=== PATIENT | male | born 1960 | race African-American/Black ===

== ENCOUNTER 2018-03-10 08:35 | Inpatient (IN) | payer OTHER, MEDICARE ==
[2018-03-10] MEDS ORDERED: NITROGLYCERIN 2% OINTMENT 1 GM PACKET TP ONE (08:43)
[2018-03-10] MEDS ORDERED: FUROSEMIDE INJ/PF 40 MG/4 ML SDV IV ONE (08:43)
[2018-03-10] MEDS ORDERED: AMLODIPINE BESYLATE 10 MG TABLET PO ONE (08:44)
[2018-03-10 09:05] LABS: ABSOLUTE BASOPHILS # (AUTO) 0.1 10^3/uL (0.0-0.2); ABSOLUTE EOSINOPHILS # (AUTO) 0.1 10^3/uL (0.0-0.6); ABSOLUTE LYMPHOCYTES (AUTO) 0.7 10^3/uL (0.5-4.7); ABSOLUTE MONOCYTES (AUTO) 0.5 10^3/uL (0.1-1.4); BASOPHILS % (AUTO) 0.8 % (0-2); EOSINOPHILS % (AUTO) 1.6 % (0-6); HEMATOCRIT 37.2 % (37.9-51.0); HEMOGLOBIN 12.6 g/dL (13.5-17.0); MEAN CORPUSCULAR HEMOGLOBIN 30.8 pg (27.0-33.4); MEAN CORPUSCULAR HGB CONC 33.8 g/dL (32.0-36.0); MEAN CORPUSCULAR VOLUME 91 fl (80-97); MONOCYTES % (AUTO) 6.2 % (3-13); PLATELET COUNT 378 10^3/uL (150-450); RED BLOOD COUNT 4.08 10^6/uL (4.35-5.55); RED CELL DISTRIBUTION WIDTH 16.6 % (11.5-14.0); SEGMENTED NEUTROPHILS % (AUTO) 81.4 % (42-78); TOTAL CELLS COUNTED % (AUTO) 100 %; WHITE BLOOD COUNT 7.4 10^3/uL (4.0-10.5)
[2018-03-10 09:10] LABS: INTERNATIONAL RATION (INR) 0.92; PROTHROMBIN TIME 12.8 SEC (11.4-15.4)
--- NOTE | 2018-03-10 09:11 | ER Document Report ---
ED General - General Chief Complaint: Breathing Difficulty Stated Complaint: SHORTNESS OF BREATH Time Seen by Provider: 03/10/18 08:39 - HPI Patient complains to provider of: Difficulty breathing Notes: Patient coming in for evaluation of difficulty in breathing. Patient states ongoing for approximately 1 week went to [facility] today was found to have an SPO2 of 89% EMS states that patient had diffuse rales was given BREANNA treatment along with 2 sublingual nitro is due to elevated blood pressure. Patient transported to the ER for further evaluation. Patient states a history of CHF patient also states a history of multiple abdominal surgeries states recently moved from [facility] has been in her chronic for approximately 1 year. Patient states approximately 50 pound weight gain in over the last few weeks. Patient has been wearing compression stockings to his legs but no improvement of his swellings. Patient upon my evaluation states feeling better after receiving his old cannula oxygen. Patient states he has not taken any of his blood pressure medications including Lasix today. - Related Data Allergies/Adverse Reactions: No Known Allergies Allergy (Unverified 03/10/18 12:35) Past Medical History - Social History Smoking Status: Unknown if Ever Smoked Family History: Reviewed & Not Pertinent Review of Systems - Review of Systems Constitutional: No symptoms reported EENT: No symptoms reported Cardiovascular: No symptoms reported Respiratory: Short of breath Gastrointestinal: No symptoms reported Genitourinary: No symptoms reported Male Genitourinary: No symptoms reported Musculoskeletal: No symptoms reported Skin: No symptoms reported Hematologic/Lymphatic: No symptoms reported Neurological/Psychological: No symptoms reported -: Yes All other systems reviewed and negative Physical Exam - Vital signs Vitals: Pulse Ox 98 03/10/18 08:43 Interpretation: Normal - General General appearance: Appears well, Alert - HEENT Head: Normocephalic, Atraumatic Eyes: Normal Pupils: PERRL - Respiratory Respiratory status: No respiratory distress Chest status: Nontender Breath sounds: Rales Chest palpation: Normal - Cardiovascular Rhythm: Regular Heart sounds: Normal auscultation Murmur: No - Abdominal Inspection: Normal Distension: No distension Bowel sounds: Normal Tenderness: Nontender Organomegaly: No organomegaly - Back Back: Normal, Nontender - Extremities General upper extremity: Normal inspection, Nontender, Normal color, Normal ROM, Normal temperature General lower extremity: Normal inspection, Nontender, Normal color, Normal ROM, Normal temperature, Normal weight bearing. No: Sarah's sign - Neurological Neuro grossly intact: Yes Cognition: Normal Orientation: AAOx4 [place] Coma Scale Eye Opening: Spontaneous [place] Coma Scale Verbal: Oriented [place] Coma Scale Motor: Obeys Commands [place] Coma Scale Total: 15 Speech: Normal Motor strength normal: LUE, RUE, LLE, RLE Sensory: Normal - Psychological Associated symptoms: Normal affect, Normal mood - Skin Skin Temperature: Warm Skin Moisture: Dry Skin Color: Normal Course - Re-evaluation Re-evalutation: 03/10/18 09:10 We will start the patient with topical nitro IV Lasix and also give the patient a dose of his amlodipine. Chest x-ray EKG currently pending 03/10/18 14:51 Patient continued to require oxygen slightly hypoxic upon ambulation and tachypnea. Patient will be admitted to the hospitalist service for CHF exacerbation. - Vital Signs Vital signs: Temp Pulse Resp BP Pulse Ox 97.5 F 15 170/106 H 94 03/10/18 08:48 03/10/18 14:31 03/10/18 14:31 03/10/18 14:31 - Laboratory Result Diagrams: 03/10/18 08:55 03/10/18 08:55 Laboratory results interpreted by me: 03/10/18 03/10/18 03/10/18 08:55 08:55 08:55 RBC 4.08 L Hgb 12.6 L Hct 37.2 L RDW 16.6 H Seg Neutrophils % 81.4 H Lymphocytes % 10.0 L Anion Gap 2 L BUN 22 H Creatinine 1.64 H Est GFR ( Amer) 52 L Est GFR (Non-Af Amer) 43 L Glucose 165 H Creatine Kinase 656 H NT-Pro-B Natriuret Pep 6080 H Total Protein 5.1 L Albumin 2.5 L - EKG Interpretation by Me Additional EKG results interpreted by me: 03/10/18 09:10 Patient is EKG shows a rate of 91 with T wave inversions lead I, aVL, V4, V5 and V6. Patient has a [place] of 176 QRS duration of 102 QT QTc [address] segment elevations or depressions. No signs of STEMI Discharge - Discharge Clinical Impression: CHF exacerbation, Chronic kidney disease, stage III (moderate) Acute CHF (congestive heart failure) Qualifiers: Heart failure type: unspecified Qualified Code(s): I50.9 - Heart failure, unspecified Type 2 diabetes mellitus Qualifiers: Diabetes mellitus mcc insulin use: without terminal clerk use Diabetes mellitus complication status: with kidney complications Diabetes mellitus complication detail: with chronic kidney disease Chronic kidney disease stage: stage 3 (moderate) Qualified Code(s): E11.22 - Type 2 diabetes mellitus with diabetic chronic kidney disease Condition: Good Disposition: ADMITTED OBSERVATION [facility] Admitted: Telemetry
--- NOTE | 2018-03-10 09:23 | RADIOLOGY REPORT (SQ) ---
EXAM DESCRIPTION: CHEST SINGLE VIEW COMPLETED DATE/TIME: 03/10/2018 9:01 am REASON FOR STUDY: sob COMPARISON: None. EXAM PARAMETERS: NUMBER OF VIEWS: One view. TECHNIQUE: Single frontal radiographic view of the chest acquired. RADIATION DOSE: NA LIMITATIONS: None. FINDINGS: LUNGS AND PLEURA: Trace bilateral pleural effusions are present with minimal bibasilar air space disease likely atelectasis. Mild pulmonary vascular prominence without perihilar pulmonary edema. No pneumothorax. MEDIASTINUM AND HILAR STRUCTURES: No masses. Contour normal. HEART AND VASCULAR STRUCTURES: Cardiac silhouette size upper limits of normal BONES: No acute findings. HARDWARE: None in the chest. OTHER: No other significant finding. IMPRESSION: Borderline cardiomegaly with trace bilateral pleural effusions TECHNICAL DOCUMENTATION: JOB ID: [id number] [employer]- All Rights Reserved Reading location - IP/workstation name: [email or web address]
[2018-03-10 09:25] LABS: ALANINE AMINOTRANSFERASE 36 U/L (21-72); ALBUMIN 2.5 g/dL (3.5-5.0); ALKALINE PHOSPHATASE 112 U/L (38-126); ASPARTATE AMINO TRANSFERASE 28 U/L (17-59); BILIRUBIN,DIRECT 0.1 mg/dL (0.0-0.4); BILIRUBIN,TOTAL 0.7 mg/dL (0.2-1.3); BLOOD UREA NITROGEN 22 mg/dL (7-20); CALCIUM 8.4 mg/dL (8.4-10.2); CREATINE KINASE 656 U/L (55-170); GLUCOSE 165 mg/dL (75-110); POTASSIUM 3.6 mmol/L (3.6-5.0); TOTAL PROTEIN 5.1 g/dL (6.3-8.2)
[2018-03-10 09:31] LABS: CARBON DIOXIDE 28 mmol/L (22-30); CHLORIDE 107 mmol/L (98-107); SODIUM 137.4 mmol/L (137-145)
[2018-03-10 09:32] LABS: ANION GAP 2 (5-19)
[2018-03-10 09:38] LABS: CREATINE KINASE MB 4.28 ng/mL (<4.55)
[2018-03-10 09:39] LABS: TROPONIN I 0.044 ng/mL
[2018-03-10] MEDS ORDERED: GLUCAGON,HUMAN RECOMB 1 MG INJ IM PRN (11:48)
[2018-03-10] MEDS ORDERED: DEXTROSE 40% GEL 15 GM TUBE PO PRN ×2 (11:48)
[2018-03-10] MEDS ORDERED: DEXTROSE 50%-WATER 25 GM/50 ML DISP.SYRIN IV PRN ×2 (11:48)
--- NOTE | 2018-03-10 12:03 | PDOC H&P ---
History of Present Illness Admission Date/PCP: 03/10/18 11:18 History of Present Illness: JARED HORVATH is a 57 year old male with a past medical history of hypertension, diabetes, and hypercholesterolemia who presents with shortness of breath. He had been having worsening shortness of breath that have been developing over the past several days. He went to an urgent care today and they took a look at him and sent him to the ER. He tells me that he has been having worsening swelling in his legs over the past few weeks. He has not been able to lay down flat and has been sleeping pretty much propped up for several weeks as well. He does not wear oxygen at home. He has no prior diagnosis of heart failure. He lives between here with his daughter and in [place] where his primary care provider is. He says he has never had a heart attack, nor has he ever had to have a cardiac catheterization or stress test. He does not know if he is ever had an echocardiogram. He says he has been taking his medications as directed. He was diffusely edematous with an elevated BNP and pulmonary edema on examination. He says he has been wearing compression stockings once he noticed the swelling in his feet was getting bad, but he says that the swelling just got worse and came up his legs and to his abdomen and lower back. He said that he had one episode of chest pain yesterday when he got up to go to the bathroom and when he got back to the couch it had resolved so it only lasted for a few minutes. He said it was on the left side of his chest and did not radiate. He has a hard time describing exactly what it felt like, just that it was uncomfortable. He does not recall ever having experienced anything like that before. He does not smoke. 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 Past Medical History Cardiac Medical History: Reports: Hypertension Social History Smoking Status: Former Smoker Family History Family History: Reviewed & Not Pertinent Parental Family History Reviewed: Yes - Unknown Children Family History Reviewed: Yes - Noncontributory Sibling(s) Family History Reviewed.: Yes - Unknown Review of Systems All systems: reviewed and no additional remarkable complaints except as stated - A 10 point review of systems was conducted with the patient and was negative except as noted above Physical Exam Vital Signs: Temp Pulse Resp BP Pulse Ox 97.5 F 14 179/107 H 94 03/10/18 08:48 03/10/18 10:32 03/10/18 10:32 03/10/18 10:32 Intake & Output 03/09/18 03/10/18 03/11/18 06:59 06:59 06:59 Weight 130.2 kg General appearance: PRESENT: no acute distress, cooperative, disheveled, morbidly obese Head exam: PRESENT: atraumatic, normocephalic Eye exam: PRESENT: EOMI, PERRLA. ABSENT: conjunctival injection, nystagmus, scleral icterus Ear exam: PRESENT: normal external ear exam Mouth exam: PRESENT: moist, neck supple, tongue midline Throat exam: ABSENT: post pharyngeal erythema Neck exam: PRESENT: full ROM, JVD - He had some mild JVD, approximately 4 cm bilaterally. ABSENT: carotid bruit, lymphadenopathy, meningismus, tenderness, thyromegaly Respiratory exam: PRESENT: crackles - Bibasilar, decreased breath sounds, symmetrical, unlabored - He said he felt better after getting a dose of Lasix in the ER and his breathing had improved by the time I saw him. ABSENT: accessory muscle use, prolonged expiratory phas, rhonchi, tachypnea, wheezes Cardiovascular exam: PRESENT: RRR, +S1, +S2. ABSENT: diastolic murmur, systolic murmur Vascular exam: PRESENT: normal capillary refill GI/Abdominal exam: PRESENT: normal bowel sounds, soft. ABSENT: distended, guarding, rebound, tenderness Gentrourinary exam: PRESENT: scrotal swelling Extremities exam: PRESENT: pedal edema, +2 edema - 2+ pitting edema from his legs up to above his waist, other - His legs were wrapped up in compression stockings. ABSENT: clubbing Musculoskeletal exam: PRESENT: normal inspection. ABSENT: deformity Neurological exam: PRESENT: alert, awake, oriented to person, oriented to place, oriented to time, oriented to situation, CN II-XII grossly intact. ABSENT: motor sensory deficit Psychiatric exam: PRESENT: appropriate affect, normal mood Skin exam: PRESENT: dry, warm Results Laboratory Results: 03/10/18 08:55 03/10/18 08:55 03/10/18 03/10/18 08:55 08:55 WBC 7.4 RBC 4.08 L Hgb 12.6 L Hct 37.2 L MCV 91 MCH 30.8 MCHC 33.8 RDW 16.6 H Plt Count 378 Seg Neutrophils % 81.4 H Lymphocytes % 10.0 L Monocytes % 6.2 Eosinophils % 1.6 Basophils % 0.8 Absolute Neutrophils 6.0 Absolute Lymphocytes 0.7 Absolute Monocytes 0.5 Absolute Eosinophils 0.1 Absolute Basophils 0.1 Sodium 137.4 Potassium 3.6 Chloride 107 Carbon Dioxide 28 Anion Gap 2 L BUN 22 H Creatinine 1.64 H Est GFR ( Amer) 52 L Est GFR (Non-Af Amer) 43 L Glucose 165 H Calcium 8.4 Total Bilirubin 0.7 AST 28 ALT 36 Alkaline Phosphatase 112 Total Protein 5.1 L Albumin 2.5 L 03/10/18 03/10/18 08:55 08:55 Creatine Kinase 656 H CK-MB (CK-2) 4.28 Troponin I 0.044 NT-Pro-B Natriuret Pep 6080 H Impressions: Chest X-Ray 03/10/18 08:43 IMPRESSION: Borderline cardiomegaly with trace bilateral pleural effusions Assessment & Plan - Diagnosis (1) Acute CHF (congestive heart failure) Qualifiers: Heart failure type: unspecified Qualified Code(s): I50.9 - Heart failure, unspecified Is this a current diagnosis for this admission?: Yes Plan: He has no prior history. He is diffusely edematous and needs diuresis. We will try to medically optimize him. We will obtain an echocardiogram. (2) Chest pain Qualifiers: Chest pain type: unspecified Qualified Code(s): R07.9 - Chest pain, unspecified Is this a current diagnosis for this admission?: Yes Plan: He had chest pain on exertion. He has a history of hypertension, hyperl ipidemia, and diabetes. We will do serial troponins. Once he is little more stable medically, will probably do a stress test. (3) Hypertensive emergency Is this a current diagnosis for this admission?: Yes Plan: I do not know if this is a definitive cause of his fluid overload, but it is certainly contributing. He is on amlodipine at home, but because that may worsen his edema, I want to put that on hold for now. I have started carvedilol and losartan, in addition to nitroglycerin paste. He is also on some Lasix to get the extra fluid off of him. (4) Chronic kidney disease, stage III (moderate) Is this a current diagnosis for this admission?: Yes Plan: His creatinine is elevated but his BUN is not elevated. With his blood pressure and his diabetes I suspect this is chronic. We will keep an eye on this and dose his medications accordingly. (5) Type 2 diabetes mellitus Qualifiers: Diabetes mellitus oysterman insulin use: without chcf use Diabetes mellitus complication status: with kidney complications Diabetes mellitus complication detail: with chronic kidney disease Chronic kidney disease stage: stage 3 (moderate) Qualified Code(s): E11.22 - Type 2 diabetes mellitus with diabetic chronic kidney disease; N18.3 - Chronic kidney disease, stage 3 (moderate) Is this a current diagnosis for this admission?: Yes Plan: He is on glipizide at home. For the time being I am going to cover him with sliding scale. - Time Time Spent: 50 to 70 Minutes - Inpatient Certification Medical Necessity: Need Close Monitoring Due to Risk of Patient Decompensation, Need For Continuous Telemetry Monitoring
[2018-03-10 12:32] LABS: FREE T4 (FREE THYROXINE) 1.07 ng/dL (0.78-2.19)
[2018-03-10 12:46] LABS: THYROID STIMULATING HORMONE 1.83 uIU/mL (0.47-4.68)
[2018-03-10] MEDS: HEPARIN SOD (PORCINE) 5,000 UNIT/ML 1 ML SYRINGE SUBCUT SCH ×2 (13:38→22:53)
[2018-03-10] MEDS: CARVEDILOL 12.5 MG TABLET PO SCH ×2 (13:38→22:53)
[2018-03-10] MEDS: ASPIRIN 325 MG TABLET, ENT COATED PO SCH (13:38)
[2018-03-10] MEDS: LOSARTAN POTASSIUM 50 MG TABLET PO SCH (13:38)
[2018-03-10] MEDS: NITROGLYCERIN 2% OINTMENT 1 GM PACKET TP SCH ×2 (15:32→22:52)
[2018-03-10] MEDS: INSULIN LISPRO 100 UNIT/ML 3 ML VIAL SUBCUT PRN ×2 (16:34→23:42)
--- NOTE | 2018-03-10 19:05 | XCELERA REPORT ---
[address] [address] Transthoracic Echocardiogram Report Name: JARED HORVATH Age: 57 yrs Gender: Male : 1960 Patient Status: Inpatient Patient Location: [place] [address]^A Study Date: 03/10/2018 02:04 PM Height: 76 in Weight: 287 lb BSA: 2.6 m2 Procedure: A two-dimensional transthoracic echocardiogram with color flow Doppler was performed. Study Quality: Fair. Reason For Study: acute chf History: acute chf. Ordering Physician: ALIRIO BRUCE Performed By: Ruthie Soni Interpretation Summary The left ventricle is normal in size. There is normal left ventricular wall thickness. LV EF is 40% to 45%.% Doppler measurements suggest normal left ventricular diastolic function There is moderate global hypokinesis of the left ventricle. There is no thrombus. There is no ventricular septal defect visualized. The right atrium is normal. The interatrial septum is intact with no evidence for an atrial septal defect. There is no Doppler evidence for an interatrial shunt There is no evidence of mitral valve prolapse. There is no vegetation seen on the mitral valve. There is no mitral valve stenosis. There is a mild amount of mitral regurgitation There is no aortic valvular vegetation. There is no aortic valve stenosis There is no LVOT obstruction. There is aortic sclerosis without aortic stenosis. There is a trace amount of aortic regurgitation There is no tricuspid stenosis. There is a mild amount of tricuspid regurgitation There is moderate pulmonary hypertension by echo RVSP is 50 to 55 mm of Hg , with RA mean of 5 to 10. There is no pulmonic valvular stenosis. There is no pulmonic valvular regurgitation. The aortic root is normal size. The inferior vena cava appeared normal and decreased > 50% with respiration (RAP 5-10 mmHg) The left atrium is mildly dilated. MMode/2D Measurements & Calculations RVDd: 3.5 cm LVIDd: 5.8 cm FS: 25.0 % Ao root diam: 3.0 cm IVSd: 1.2 cm LVIDs: 4.3 cm EDV(Teich): 163.4 ml Ao root area: 6.9 cm2 LVPWd: 1.2 cm ESV(Teich): 83.8 ml LA dimension: 4.4 cm EF(Teich): 48.7 % Doppler Measurements & Calculations MV E max kp: MV P1/2t max kp: Ao V2 max: LV V1 max P.7 cm/sec 102.7 cm/sec 108.6 cm/sec 3.9 mmHg MV A max kp: MV P1/2t: 36.9 msec Ao max P.7 mmHgLV V1 max: 54.8 cm/sec MVA(P1/2t): 6.0 cm2 98.7 cm/sec MV E/A: 1.9 MV dec slope: 815.2 cm/sec2 MV dec time: 0.13 sec PA V2 max: TR max kp: MV P1/2t-pr_phl: 68.1 cm/sec 335.3 cm/sec 36.9 msec PA max P.9 mmHg TR max P.0 mmHg Left Ventricle The left ventricle is normal in size. There is normal left ventricular wall thickness. LV EF is 40% to 45%.%. Left ventricular systolic function is moderately reduced. Doppler measurements suggest normal left ventricular diastolic function. There is moderate global hypokinesis of the left ventricle. There is no thrombus. There is no ventricular septal defect visualized. Right Ventricle The right ventricle is normal size. There is mild right ventricular hypertrophy. The right ventricular systolic function is borderline reduced. Atria The right atrium is normal. The left atrium is mildly dilated. The interatrial septum is intact with no evidence for an atrial septal defect. There is no Doppler evidence for an interatrial shunt. Mitral Valve There is no evidence of mitral valve prolapse. There is no vegetation seen on the mitral valve. There is no mitral valve stenosis. There is a mild amount of mitral regurgitation. Aortic Valve There is no aortic valvular vegetation. There is no aortic valve stenosis. There is no LVOT obstruction. There is aortic sclerosis without aortic stenosis. There is a trace amount of aortic regurgitation. Tricuspid Valve There is no tricuspid stenosis. There is a mild amount of tricuspid regurgitation. There is moderate pulmonary hypertension by echo. RVSP is 50 to 55 mm of Hg , with RA mean of 5 to 10. Pulmonic Valve There is no pulmonic valvular stenosis. There is no pulmonic valvular regurgitation. Great Vessels The aortic root is normal size. The inferior vena cava appeared normal and decreased > 50% with respiration (RAP 5-10 mmHg). Effusions There is no pericardial effusion. : ALIRIO BRUCE > Deonna Iniguez
[2018-03-10] MEDS: FUROSEMIDE INJ/PF 40 MG/4 ML SDV IV SCH (22:53)
[2018-03-10] MEDS: ATORVASTATIN CALCIUM 20 MG TABLET PO SCH (22:54)
--- NOTE | 2018-03-11 00:12 | EKG REPORT ---
SEVERITY:- ABNORMAL ECG - SINUS RHYTHM PROBABLE LEFT ATRIAL ABNORMALITY ABNORMAL T, CONSIDER ISCHEMIA, LATERAL LEADS PROLONGED QT INTERVAL NONSPECIFIC ST-T CHANGES : Confirmed by: Anthony Wolfe 11-Mar-2018 00:11:07
[2018-03-11] MEDS: NITROGLYCERIN 2% OINTMENT 1 GM PACKET TP SCH ×4 (03:43→20:27)
[2018-03-11] MEDS: HEPARIN SOD (PORCINE) 5,000 UNIT/ML 1 ML SYRINGE SUBCUT SCH ×3 (05:38→21:39)
[2018-03-11 05:45] LABS: CHOLESTEROL 240.13 mg/dL (0-200); TRIGLYCERIDES 80 mg/dL (<150)
[2018-03-11 05:56] LABS: DIRECT LDL 91 mg/dL (<100)
[2018-03-11] MEDS: FUROSEMIDE INJ/PF 40 MG/4 ML SDV IV SCH ×2 (09:15→21:38)
[2018-03-11] MEDS: ASPIRIN 325 MG TABLET, ENT COATED PO SCH (09:16)
[2018-03-11] MEDS: LOSARTAN POTASSIUM 50 MG TABLET PO SCH (09:16)
[2018-03-11] MEDS: CARVEDILOL 12.5 MG TABLET PO SCH ×2 (09:16→21:39)
[2018-03-11 13:51] LABS: TROPONIN I 0.029 ng/mL
[2018-03-11] MEDS: INSULIN LISPRO 100 UNIT/ML 3 ML VIAL SUBCUT PRN ×3 (14:05→21:38)
--- NOTE | 2018-03-11 16:48 | PDOC PROGRESS REPORT ---
Subjective Progress Note for:: 03/11/18 Subjective:: Patient is a 57-year-old male with a past medical history of hypertension, hyperlipidemia, diabetes who was admitted 03/10/18 with new diagnosis of CHF. Patient was seen on morning rounds. He was found sitting upright to the edge of the bed on supplemental oxygen via nasal cannula at 1 L/min; noted to have a continuous pulse oximetry in the high 90s. His oxygen was discontinued and he maintained a pulse ox greater than 94 while on room air. Patient reports that his chest tightness has resolved; denies palpitations. His only complaint at present is his persistent bilateral lower extremity edema. He does admit this to being somewhat chronic in nature, however, is worsened than his baseline. Otherwise, he has no new questions or concerns and denies fever, chills, headache, dizziness, chest pain, palpitations, dyspnea, orthopnea, abdominal pain, nausea vomiting or diarrhea. I spoke with his daughter on speaker phone at the patient's bedside with his per mission; all questions were answered to her satisfaction. No concerns per nursing. Reason For Visit: HEART FAILURE Physical Exam Vital Signs: Temp Pulse Resp BP Pulse Ox 97.5 F 81 16 152/90 H 98 03/11/18 12:16 03/11/18 14:00 03/11/18 12:16 03/11/18 12:16 03/11/18 12:16 Pulse Oximeter Continuous Start: 03/10/18 11:40 Freq: RTQ4 Status: Active Protocol: Document 03/11/18 12:00 [facility] (Rec: 03/11/18 12:34 [facility] [id number]) Pulse Oximetry Assessment Oxygen Saturation (92-100) 99 Oxygen Flow Rate (L/min) 1 Oxygen Delivery Method Nasal Cannula Equipment Usage Equipment in Use Continuous SpO2 Machine # 2 Intake & Output 03/10/18 03/11/18 03/12/18 06:59 06:59 06:59 Intake Total 0 509 Output Total 1550 550 Balance -1550 -41 Weight 126 kg General appearance: PRESENT: no acute distress, obese, well-developed, well-nourished Head exam: PRESENT: atraumatic, normocephalic Eye exam: PRESENT: conjunctiva pink, EOMI, PERRLA. ABSENT: scleral icterus Ear exam: PRESENT: normal external ear exam Mouth exam: PRESENT: moist, tongue midline Neck exam: ABSENT: carotid bruit, JVD, lymphadenopathy, thyromegaly Respiratory exam: PRESENT: clear to auscultation liseth, decreased breath sounds, symmetrical, unlabored. ABSENT: rales, rhonchi, wheezes Cardiovascular exam: PRESENT: RRR, +S1, +S2. ABSENT: diastolic murmur, rubs, systolic murmur Pulses: PRESENT: normal dorsalis pedis pul Vascular exam: PRESENT: normal capillary refill GI/Abdominal exam: PRESENT: normal bowel sounds, soft. ABSENT: distended, guarding, mass, organolmegaly, rebound, tenderness Rectal exam: PRESENT: deferred Extremities exam: PRESENT: full ROM, +2 edema - tight, nonpitting BLE edema. ABSENT: calf tenderness, clubbing, pedal edema Neurological exam: PRESENT: alert, awake, oriented to person, oriented to place, oriented to time, oriented to situation, CN II-XII grossly intact. ABSENT: motor sensory deficit Psychiatric exam: PRESENT: appropriate affect, normal mood. ABSENT: homicidal ideation, suicidal ideation Skin exam: PRESENT: dry, intact, warm. ABSENT: cyanosis, rash Results Laboratory Results: 03/10/18 08:55 03/10/18 08:55 03/11/18 05:16 Triglycerides 80 Cholesterol 240.13 H LDL Cholesterol Direct 91 VLDL Cholesterol 16.0 HDL Cholesterol 118 03/10/18 03/10/18 03/10/18 08:55 08:55 13:00 Creatine Kinase 656 H CK-MB (CK-2) 4.28 Troponin I 0.044 0.043 NT-Pro-B Natriuret Pep 6080 H 03/11/18 12:37 Creatine Kinase CK-MB (CK-2) Troponin I 0.029 NT-Pro-B Natriuret Pep 5050 H Impressions: Chest X-Ray 03/10/18 08:43 IMPRESSION: Borderline cardiomegaly with trace bilateral pleural effusions Assessment & Plan - Diagnosis (1) Acute CHF (congestive heart failure) Qualifiers: Heart failure type: systolic Qualified Code(s): I50.21 - Acute systolic (congestive) heart failure Is this a current diagnosis for this admission?: Yes Plan: New diagnosis of CHF. Echocardiogram revealed LVEF 40-45% with normal diastolic function, moderate global hypokinesis of the left ventricle, and moderate pulmonary hypertension. ProBNP is decreased from 6080 to 5050 today. Continue cardiac diet. Daily weights, strict I&O's. The patient's previously prescribed amlodipine was discontinued secondary to side effect of edema. Continue carvedilol 12.5 mg p.o. twice daily, losartan 50 mg daily, daily aspirin and statin therapy. Continue aggressive diuresis with IV furosemide. The registered dietitian, patient educator, assistant baseball coach, and brand planner are consulted. May benefit from cardiology outpatient follow-up. (2) Chest pain Qualifiers: Chest pain type: unspecified Qualified Code(s): R07.9 - Chest pain, unspecified Is this a current diagnosis for this admission?: Yes Plan: The patient presented with a complaint of chest pain on exertion. He does have a history of hypertension, hyperlipidemia, and diabetes. Serial troponins were indeterminately elevated but trending downward x3. Will arrange for nuclear stress testing. Continue daily aspirin and statin therapy. (3) Chronic kidney disease, stage III (moderate) Is this a current diagnosis for this admission?: Yes Plan: Creatinine was elevated to 1.64 on admission, however, BUN appropriate at 22. Likely chronic CKD3. Avoid nephrotoxic medications. Optimize cardiac output/CHF management. Daily chemistries. (4) Hypertensive emergency Is this a current diagnosis for this admission?: Yes Plan: Blood pressures are slightly improved today; 160/87 down from 179/118. Continue carvedilol, losartan, and furosemide. Continue nitroglycerin paste. Cardiac diet. (5) Type 2 diabetes mellitus Qualifiers: Diabetes mellitus shelter insulin use: without shelter use Diabetes mellitus complication status: with kidney complications Diabetes mellitus complication detail: with chronic kidney disease Chronic kidney disease stage: stage 3 (moderate) Qualified Code(s): E11.22 - Type 2 diabetes mellitus with diabetic chronic kidney disease; N18.3 - Chronic kidney disease, stage 3 (moderate) Is this a current diagnosis for this admission?: Yes Plan: A1c 7.3%. Holding glipizide while inpatient. Consistent carb diet. Accu-Cheks before meals and at bedtime with sliding scale insulin for coverage. The registered dietitian and adaptive physical educator consulted. - Time Time Spent with patient: 25-34 minutes Medications reviewed and adjusted accordingly: Yes Anticipated discharge: Home Within: within 72 hours
[2018-03-11] MEDS: ATORVASTATIN CALCIUM 20 MG TABLET PO SCH (21:39)
[2018-03-12] MEDS: NITROGLYCERIN 2% OINTMENT 1 GM PACKET TP SCH ×4 (03:13→21:59)
[2018-03-12] MEDS: HEPARIN SOD (PORCINE) 5,000 UNIT/ML 1 ML SYRINGE SUBCUT SCH ×3 (05:21→22:00)
[2018-03-12 05:29] LABS: HEMATOCRIT 35.8 % (37.9-51.0); HEMOGLOBIN 11.9 g/dL (13.5-17.0); MEAN CORPUSCULAR HEMOGLOBIN 30.4 pg (27.0-33.4); MEAN CORPUSCULAR HGB CONC 33.2 g/dL (32.0-36.0); MEAN CORPUSCULAR VOLUME 91 fl (80-97); PLATELET COUNT 336 10^3/uL (150-450); RED BLOOD COUNT 3.92 10^6/uL (4.35-5.55); RED CELL DISTRIBUTION WIDTH 16.3 % (11.5-14.0); WHITE BLOOD COUNT 6.1 10^3/uL (4.0-10.5)
[2018-03-12 05:52] LABS: BLOOD UREA NITROGEN 30 mg/dL (7-20); CALCIUM 8.3 mg/dL (8.4-10.2); GLUCOSE 99 mg/dL (75-110); POTASSIUM 3.6 mmol/L (3.6-5.0)
[2018-03-12 05:57] LABS: ANION GAP 5 (5-19); CARBON DIOXIDE 26 mmol/L (22-30); CHLORIDE 105 mmol/L (98-107); SODIUM 135.6 mmol/L (137-145)
[2018-03-12] MEDS: ASPIRIN 325 MG TABLET, ENT COATED PO SCH (12:53)
[2018-03-12] MEDS: LOSARTAN POTASSIUM 50 MG TABLET PO SCH (12:53)
[2018-03-12] MEDS: CARVEDILOL 12.5 MG TABLET PO SCH ×2 (12:53→22:00)
[2018-03-12] MEDS: FUROSEMIDE INJ/PF 40 MG/4 ML SDV IV SCH (12:55)
[2018-03-12] MEDS ORDERED: REGADENOSON INJ 0.4 MG/5 ML DISP.SYRIN IV ONE (13:20)
--- NOTE | 2018-03-12 15:13 | PDOC PROGRESS REPORT ---
Subjective Progress Note for:: 03/12/18 Subjective:: Patient is a 57-year-old male with a past medical history of hypertension, hyperlipidemia, diabetes who was admitted 03/10/18 with new diagnosis of CHF. Patient was seen on morning rounds. He was found sitting upright to the edge of the bed on supplemental oxygen via nasal cannula at 2 L/min eating his breakfast. Patient reports he is feeling well today; no difficulty during stress test. He denies further episodes of chest discomfort or dyspnea. He also reports that his BLE edema is somewhat improved. He further denies fever, chills, headache, dizziness, chest pain, palpitations, orthopnea, abdominal pain, nausea vomiting or diarrhea. He has no new questions or concerns. Nursing reports the patient was noted to desaturate to the mid 80s while sleeping on room air overnight. He has subsequently been placed back on supplemental oxygen via nasal cannula. Requesting overnight sleep study. Reason For Visit: HEART FAILURE Physical Exam Vital Signs: Temp Pulse Resp BP Pulse Ox 97.9 F 81 20 146/78 H 96 03/12/18 11:26 03/12/18 11:26 03/12/18 11:26 03/12/18 11:26 03/12/18 12:00 Pulse Oximeter Continuous Start: 03/10/18 11:40 Freq: RTQ4 Status: Complete Protocol: Document 03/12/18 12:00 [facility] (Rec: 03/12/18 12:33 [facility] [id number]) Pulse Oximetry Assessment Oxygen Saturation (92-100) 96 Oxygen Flow Rate (L/min) 2 Equipment Usage Equipment in Use Continuous SpO2 Machine # 2 Intake & Output 03/11/18 03/12/18 03/13/18 06:59 06:59 06:59 Intake Total 0 998 322 Output Total 1550 2400 400 Balance -1550 -1402 -78 Weight 126 kg 122.8 kg General appearance: PRESENT: no acute distress, cooperative - Pleasant, obese, well-developed, well-nourished Head exam: PRESENT: atraumatic, normocephalic Eye exam: PRESENT: conjunctiva pink, EOMI, PERRLA. ABSENT: scleral icterus Ear exam: PRESENT: normal external ear exam Mouth exam: PRESENT: moist, tongue midline Neck exam: ABSENT: carotid bruit, JVD, lymphadenopathy, thyromegaly Respiratory exam: PRESENT: clear to auscultation liseth, decreased breath sounds - Bibasilar, other - Supplemental oxygen via nasal cannula. ABSENT: rales, rhonchi, wheezes Cardiovascular exam: PRESENT: RRR, +S1, +S2. ABSENT: diastolic murmur, rubs, systolic murmur Pulses: PRESENT: normal dorsalis pedis pul Vascular exam: PRESENT: normal capillary refill GI/Abdominal exam: PRESENT: normal bowel sounds, soft. ABSENT: distended, gua rding, mass, organolmegaly, rebound, tenderness Rectal exam: PRESENT: deferred Extremities exam: PRESENT: full ROM, +2 edema - Tight, nonpitting, bilateral lower extremity edema; somewhat improved from yesterday. ABSENT: calf tenderness, clubbing, pedal edema Neurological exam: PRESENT: alert, awake, oriented to person, oriented to place, oriented to time, oriented to situation, CN II-XII grossly intact. ABSENT: motor sensory deficit Psychiatric exam: PRESENT: appropriate affect, normal mood. ABSENT: homicidal ideation, suicidal ideation Skin exam: PRESENT: dry, intact, warm. ABSENT: cyanosis, rash Results Laboratory Results: 03/12/18 05:20 03/12/18 05:20 03/12/18 03/12/18 05:20 05:20 WBC 6.1 RBC 3.92 L Hgb 11.9 L Hct 35.8 L MCV 91 MCH 30.4 MCHC 33.2 RDW 16.3 H Plt Count 336 Sodium 135.6 L Potassium 3.6 Chloride 105 Carbon Dioxide 26 Anion Gap 5 BUN 30 H Creatinine 1.67 H Est GFR ( Amer) 51 L Est GFR (Non-Af Amer) 42 L Glucose 99 Calcium 8.3 L 03/10/18 03/10/18 03/10/18 08:55 08:55 13:00 Creatine Kinase 656 H CK-MB (CK-2) 4.28 Troponin I 0.044 0.043 NT-Pro-B Natriuret Pep 6080 H 03/11/18 03/12/18 12:37 05:20 Creatine Kinase CK-MB (CK-2) Troponin I 0.029 NT-Pro-B Natriuret Pep 5050 H 4800 H Impressions: Chest X-Ray 03/10/18 08:43 IMPRESSION: Borderline cardiomegaly with trace bilateral pleural effusions Assessment & Plan - Diagnosis (1) Acute CHF (congestive heart failure) Qualifiers: Heart failure type: systolic Qualified Code(s): I50.21 - Acute systolic (congestive) heart failure Is this a current diagnosis for this admission?: Yes Plan: New diagnosis of CHF. Echocardiogram revealed LVEF 40-45% with normal diastolic function, moderate global hypokinesis of the left ventricle, and moderate pulmonary hypertension. ProBNP 6080 --> 4800. Continue cardiac diet. Daily weights, strict I&O's. Weight down 3.2 kg. The patient's previously prescribed amlodipine was discontinued secondary to side effect of edema. Continue carvedilol 12.5 mg p.o. twice daily, losartan 50 mg daily, daily aspirin and statin therapy. Will transition to p.o. Lasix at 40 mg twice daily. The registered dietitian, patient educator, volleyball coach, and business continuity planner are consulted. May benefit from cardiology outpatient follow-up. (2) Chest pain Qualifiers: Chest pain type: unspecified Qualified Code(s): R07.9 - Chest pain, unspecified Is this a current diagnosis for this admission?: Yes Plan: No further episodes of chest discomfort. The patient presented with a complaint of chest pain on exertion. He does have a history of hypertension, hyperlipidemia, and diabetes. Serial troponins were indeterminately elevated but trending downward x3. Stress test was completed this morning; report pending. Continue daily aspirin and statin therapy. (3) Chronic kidney disease, stage III (moderate) Is this a current diagnosis for this admission?: Yes Plan: Stable. Creatinine was elevated to 1.64 on admission, however, BUN appropriate at 22. Likely chronic CKD3. Avoid nephrotoxic medications. Optimize cardiac output/CHF management. Daily chemistries. (4) Hypertensive emergency Is this a current diagnosis for this admission?: Yes Plan: Blood pressures are improved today; 146/78 Continue carvedilol, losartan, and furosemide. Continue nitroglycerin paste. Cardiac diet. (5) Type 2 diabetes mellitus Qualifiers: Diabetes mellitus senior living insulin use: without senior living use Diabetes mellitus complication status: with kidney complications Diabetes mellitus complication detail: with chronic kidney disease Chronic kidney disease stage: stage 3 (moderate) Qualified Code(s): E11.22 - Type 2 diabetes mellitus with diabetic chronic kidney disease; N18.3 - Chronic kidney disease, stage 3 (moderate) Is this a current diagnosis for this admission?: Yes Plan: A1c 7.3%. Holding glipizide while inpatient. Consistent carb diet. Accu-Cheks before meals and at bedtime with sliding scale insulin for coverage. The registered dietitian and community health educator consulted. - Time Time Spent with patient: 15-24 minutes Medications reviewed and adjusted accordingly: Yes Anticipated discharge: Home Within: within 24 hours
[2018-03-12] MEDS: INSULIN LISPRO 100 UNIT/ML 3 ML VIAL SUBCUT PRN ×2 (18:06→22:03)
[2018-03-12] MEDS: FUROSEMIDE 40 MG TABLET PO SCH (18:06)
[2018-03-12] MEDS: ATORVASTATIN CALCIUM 20 MG TABLET PO SCH (22:00)
[2018-03-13] MEDS: NITROGLYCERIN 2% OINTMENT 1 GM PACKET TP SCH ×4 (03:07→22:13)
[2018-03-13] MEDS: HEPARIN SOD (PORCINE) 5,000 UNIT/ML 1 ML SYRINGE SUBCUT SCH ×3 (06:00→22:14)
[2018-03-13 06:27] LABS: ANION GAP 6 (5-19); BLOOD UREA NITROGEN 31 mg/dL (7-20); CALCIUM 8.2 mg/dL (8.4-10.2); CARBON DIOXIDE 25 mmol/L (22-30); CHLORIDE 105 mmol/L (98-107); GLUCOSE 138 mg/dL (75-110); POTASSIUM 3.7 mmol/L (3.6-5.0); SODIUM 135.7 mmol/L (137-145)
[2018-03-13] MEDS ORDERED: LEVALBUTEROL HCL NEB 1.25 MG/3 ML AMPUL NEB ONE (08:59)
[2018-03-13] MEDS: FUROSEMIDE 40 MG TABLET PO SCH (10:00)
--- NOTE | 2018-03-13 10:11 | RADIOLOGY REPORT (SQ) ---
EXAM DESCRIPTION: CHEST 2 VIEWS COMPLETED DATE/TIME: 03/13/2018 9:28 am REASON FOR STUDY: dyspnea COMPARISON: 03/10/2018. EXAM PARAMETERS: NUMBER OF VIEWS: two views TECHNIQUE: Digital Frontal and Lateral radiographic views of the chest acquired. RADIATION DOSE: NA LIMITATIONS: none FINDINGS: LUNGS AND PLEURA: Since the previous study there has been progression in bilateral airspac e infiltrates in the lung bases which could represent pulmonary edema and/or pneumonia. There has be en increase in bilateral pleural effusions. MEDIASTINUM AND HILAR STRUCTURES: No masses or contour abnormalities. HEART AND VASCULAR STRUCTURES: Cardiomegaly with pulmonary vascular congestion. BONES: No acute findings. HARDWARE: None in the chest. OTHER: No other significant finding. IMPRESSION: Since the prior study there has been progression of bilateral pulmonary perihilar alveol ar infiltrates most consistent with pulmonary edema with pneumonia not excluded. Interval increase i n bilateral pleural effusions. Persistent cardiomegaly with pulmonary vascular congestion. TECHNICAL DOCUMENTATION: JOB ID: [id number] [employer]- All Rights Reserved Reading location - IP/workstation name: [email or web address]
[2018-03-13] MEDS: CARVEDILOL 12.5 MG TABLET PO SCH ×2 (10:15→22:12)
[2018-03-13] MEDS: LOSARTAN POTASSIUM 50 MG TABLET PO SCH (10:16)
[2018-03-13] MEDS: ASPIRIN 325 MG TABLET, ENT COATED PO SCH (10:16)
[2018-03-13] MEDS ORDERED: FUROSEMIDE INJ/PF 40 MG/4 ML SDV IV SCH ×2 (11:00→18:00)
[2018-03-13 11:39] LABS: HEMATOCRIT 34.1 % (37.9-51.0); HEMOGLOBIN 11.6 g/dL (13.5-17.0); MEAN CORPUSCULAR HEMOGLOBIN 30.8 pg (27.0-33.4); MEAN CORPUSCULAR HGB CONC 33.9 g/dL (32.0-36.0); MEAN CORPUSCULAR VOLUME 91 fl (80-97); PLATELET COUNT 342 10^3/uL (150-450); RED BLOOD COUNT 3.75 10^6/uL (4.35-5.55); RED CELL DISTRIBUTION WIDTH 16.5 % (11.5-14.0); WHITE BLOOD COUNT 5.5 10^3/uL (4.0-10.5)
[2018-03-13] MEDS ORDERED: FUROSEMIDE INJ/PF 100 MG/10 ML SDV IV SCH (11:45)
[2018-03-13 11:57] LABS: ABSOLUTE LYMPHOCYTES# (MANUAL) 0.8 10^3/uL (0.5-4.7); ABSOLUTE MONOCYTES # (MANUAL) 0.6 10^3/uL (0.1-1.4); BASOPHILS % (MANUAL) 0 % (0-2); EOSINOPHILS % (MANUAL) 3 % (0-6); LYMPHOCYTES % (MANUAL) 14 % (13-45); MONOCYTES % (MANUAL) 10 % (3-13); SEGMENTED NEUTROPHILS % (MAN) 72 % (42-78); TOTAL CELLS COUNTED 100
[2018-03-13 11:58] LABS: ANISOCYTOSIS 1+; PLATELET COMMENT ADEQUATE
[2018-03-13 11:59] LABS: PLATELET CLUMPS PRESENT
[2018-03-13] MEDS ORDERED: LEVALBUTEROL HCL NEB 1.25 MG/3 ML AMPUL NEB PRN (12:08)
[2018-03-13] MEDS: INSULIN LISPRO 100 UNIT/ML 3 ML VIAL SUBCUT PRN (12:22)
[2018-03-13] MEDS: FUROSEMIDE INJ/PF 100 MG/10 ML SDV IV SCH (14:58)
[2018-03-13] MEDS ORDERED: DOBUTAMINE HCL/D5W 500 MG/250 ML RTUINJ IV PRN (16:22)
--- NOTE | 2018-03-13 16:26 | PDOC PROGRESS REPORT ---
Subjective Progress Note for:: 03/13/18 Subjective:: Patient is a 57-year-old male with a past medical history of hypertension, hyperlipidemia, diabetes who was admitted 03/10/18 with new diagnosis of CHF. Patient was seen on morning rounds. He was found sitting up in the bedside chair, tachypnea, on supplemental oxygen at 4 L/min. Is noted to have coarse lung sounds and a productive cough with clear, frothy, pink tinged sputum. The patient does admit to increased dyspnea and orthopnea. He also believes that hi s BLE edema is slightly worse today. He further denies fever, chills, headache, dizziness, chest pain, palpitations, abdominal pain, nausea vomiting or diarrhea. Reason For Visit: HEART FAILURE Physical Exam Vital Signs: Temp Pulse Resp BP Pulse Ox 97.6 F 79 22 H 138/81 H 100 03/13/18 15:29 03/13/18 15:29 03/13/18 15:29 03/13/18 15:29 03/13/18 15:29 Pulse Oximeter Continuous Start: 03/10/18 11:40 Freq: RTQ4 Status: Complete Protocol: Document 03/12/18 12:00 [facility] (Rec: 03/12/18 12:33 [email or web address]) Pulse Oximetry Assessment Oxygen Saturation (92-100) 96 Oxygen Flow Rate (L/min) 2 Equipment Usage Equipment in Use Continuous SpO2 Machine # 2 Pulse Oximeter Nocturnal Start: 03/12/18 13:42 Freq: RTQ4 Status: Complete Protocol: Document 03/13/18 06:06 [facility] (Rec: 03/13/18 06:06 [email or web address]) Nocturnal Pulse Oximetry Equipment Usage Equipment Discontinued Continuous SpO2 Machine # 2 Intake & Output 03/12/18 03/13/18 03/14/18 06:59 06:59 06:59 Intake Total 998 1744 Output Total 2400 2300 350 Balance -1402 -556 -350 Weight 122.8 kg 123.9 kg General appearance: PRESENT: cooperative, mild distress, well-developed, well- nourished - Overweight Head exam: PRESENT: atraumatic, normocephalic Eye exam: PRESENT: conjunctiva pink, EOMI, PERRLA. ABSENT: scleral icterus Ear exam: PRESENT: normal external ear exam Mouth exam: PRESENT: moist, tongue midline Neck exam: ABSENT: carotid bruit, JVD, lymphadenopathy, thyromegaly Respiratory exam: PRESENT: crackles, prolonged expiratory phas, symmetrical, tachypnea, wheezes - RLL, other - Supplemental oxygen 4 L/min. ABSENT: rales, rhonchi Cardiovascular exam: PRESENT: RRR, +S1, +S2. ABSENT: diastolic murmur, rubs, systolic murmur Pulses: PRESENT: normal dorsalis pedis pul Vascular exam: PRESENT: normal capillary refill GI/Abdominal exam: PRESENT: normal bowel sounds, soft. ABSENT: distended, guarding, mass, organolmegaly, rebound, tenderness Rectal exam: PRESENT: deferred Extremities exam: PRESENT: full ROM, pedal edema - +3, type, edema extending distally from knees. ABSENT: calf tenderness, clubbing Neurological exam: PRESENT: alert, awake, oriented to person, oriented to place, oriented to time, oriented to situation, CN II-XII grossly intact. ABSENT: motor sensory deficit Psychiatric exam: PRESENT: appropriate affect, normal mood. ABSENT: homicidal ideation, suicidal ideation Skin exam: PRESENT: dry, intact, warm. ABSENT: cyanosis, rash Results Laboratory Results: 03/13/18 05:15 03/13/18 05:15 03/13/18 03/13/18 05:15 05:15 WBC 5.5 RBC 3.75 L Hgb 11.6 L Hct 34.1 L MCV 91 MCH 30.8 MCHC 33.9 RDW 16.5 H Plt Count 342 Seg Neutrophils % Not Reportable Lymphocytes % Not Reportable Monocytes % Not Reportable Eosinophils % Not Reportable Basophils % Not Reportable Absolute Neutrophils Not Reportable Absolute Lymphocytes Not Reportable Absolute Monocytes Not Reportable Absolute Eosinophils Not Reportable Absolute Basophils Not Reportable Sodium 135.7 L Potassium 3.7 Chloride 105 Carbon Dioxide 25 Anion Gap 6 BUN 31 H Creatinine 1.64 H Est GFR ( Amer) 52 L Est GFR (Non-Af Amer) 43 L Glucose 138 H Calcium 8.2 L 03/10/18 03/10/18 03/10/18 08:55 08:55 13:00 Creatine Kinase 656 H CK-MB (CK-2) 4.28 Troponin I 0.044 0.043 NT-Pro-B Natriuret Pep 6080 H 03/11/18 03/12/18 12:37 05:20 Creatine Kinase CK-MB (CK-2) Troponin I 0.029 NT-Pro-B Natriuret Pep 5050 H 4800 H Impressions: Chest X-Ray 03/13/18 00:00 IMPRESSION: Since the prior study there has been progression of bilateral pulmonary perihilar alveolar infiltrates most consistent with pulmonary edema with pneumonia not excluded. Interval increase in bilateral pleural effusions. Persistent cardiomegaly with pulmonary vascular congestion. Assessment & Plan - Diagnosis (1) Acute CHF (congestive heart failure) Qualifiers: Heart failure type: systolic Qualified Code(s): I50.21 - Acute systolic (congestive) heart failure Is this a current diagnosis for this admission?: Yes Plan: New diagnosis of CHF; worsened today. Repeat chest x-ray today demonstrates pulmonary edema; pneumonia cannot be excluded Echocardiogram revealed LVEF 40-45% with normal diastolic function, moderate global hypokinesis of the left ventricle, and moderate pulmonary hypertension. ProBNP 6080 --> 4800. Supplemental oxygen as needed to maintain oxygen saturations greater than 90%. BiPAP nightly and as needed. Continue cardiac diet. Daily weights, strict I&O's. Weight down 3.2 kg. The patient's previously prescribed amlodipine was discontinued secondary to side effect of edema. Carvedilol increased to 25 mg p.o. twice daily. Continue losartan 50 mg daily, daily aspirin and statin therapy. Resume IV furosemide. The registered dietitian, patient educator, career coach, and estate planner are consulted. Cardiology is consulted; appreciate Dr. King's assistance. (2) Chest pain Qualifiers: Chest pain type: unspecified Qualified Code(s): R07.9 - Chest pain, unspecified Is this a current diagnosis for this admission?: Yes Plan: No further episodes of chest discomfort. The patient presented with a complaint of chest pain on exertion. He does have a history of hypertension, hyperlipidemia, and diabetes. Serial troponins were indeterminately elevated but trending downward x3. Stress test was completed this morning; report pending. Spoke with Dr. Iniguez; reveals dilated cardiomyopathy. No acute findings. Continue daily aspirin and statin therapy. (3) Chronic kidney disease, stage III (moderate) Is this a current diagnosis for this admission?: Yes Plan: Stable. Creatinine was elevated to 1.64 on admission, however, BUN appropriate at 22. Likely chronic CKD3. Avoid nephrotoxic medications. Optimize cardiac output/CHF management. Daily chemistries. (4) Hypertensive emergency Is this a current diagnosis for this admission?: Yes Plan: Blood pressures are improved today; 138/81 Continue carvedilol, losartan, and furosemide. Continue nitroglycerin paste. Cardiac diet. (5) Type 2 diabetes mellitus Qualifiers: Diabetes mellitus shelter insulin use: without rat exterminator use Diabetes mellitus complication status: with kidney complications Diabetes mellitus complication detail: with chronic kidney disease Chronic kidney disease stage: stage 3 (moderate) Qualified Code(s): E11.22 - Type 2 diabetes mellitus with diabetic chronic kidney disease; N18.3 - Chronic kidney disease, stage 3 (moderate) Is this a current diagnosis for this admission?: Yes Plan: A1c 7.3%. Holding glipizide while inpatient. Consistent carb diet. Accu-Cheks before meals and at bedtime with sliding scale insulin for coverage. The registered dietitian and family living educator consulted. - Time Time Spent with patient: 25-34 minutes Medications reviewed and adjusted accordingly: Yes Anticipated discharge: Home
[2018-03-13] MEDS: LEVOFLOXACIN 750 MG/D5W RTU 750 MG/150 ML RTUPB IV SCH (18:13)
--- NOTE | 2018-03-13 20:32 | PDOC CONSULTATION ---
Consultation-Blank Consultation: CARDIOLOGY CONSULTATION by Dr. Deonna Iniguez. Patient seen 4:30 PM on 03/13/2018. REASON FOR CONSULTATION: Acute CHF.
[2018-03-13] MEDS: ATORVASTATIN CALCIUM 20 MG TABLET PO SCH (22:14)
[2018-03-14] MEDS: NITROGLYCERIN 2% OINTMENT 1 GM PACKET TP SCH ×2 (03:52→08:43)
[2018-03-14 05:00] LABS: HEMATOCRIT 32.1 % (37.9-51.0); HEMOGLOBIN 10.8 g/dL (13.5-17.0); MEAN CORPUSCULAR HEMOGLOBIN 30.4 pg (27.0-33.4); MEAN CORPUSCULAR HGB CONC 33.6 g/dL (32.0-36.0); MEAN CORPUSCULAR VOLUME 90 fl (80-97); PLATELET COUNT 306 10^3/uL (150-450); RED BLOOD COUNT 3.55 10^6/uL (4.35-5.55); RED CELL DISTRIBUTION WIDTH 16.2 % (11.5-14.0); WHITE BLOOD COUNT 7.5 10^3/uL (4.0-10.5)
[2018-03-14 05:19] LABS: BLOOD UREA NITROGEN 29 mg/dL (7-20); CALCIUM 7.9 mg/dL (8.4-10.2); GLUCOSE 126 mg/dL (75-110); POTASSIUM 3.5 mmol/L (3.6-5.0)
[2018-03-14 05:25] LABS: CARBON DIOXIDE 28 mmol/L (22-30); CHLORIDE 105 mmol/L (98-107); SODIUM 136.1 mmol/L (137-145)
[2018-03-14 05:29] LABS: ANION GAP 3 (5-19)
[2018-03-14] MEDS ORDERED: FUROSEMIDE INJ/PF 100 MG/10 ML SDV IV SCH (06:00)
[2018-03-14] MEDS: HEPARIN SOD (PORCINE) 5,000 UNIT/ML 1 ML SYRINGE SUBCUT SCH ×3 (06:21→21:43)
[2018-03-14] MEDS: ASPIRIN 325 MG TABLET, ENT COATED PO SCH (10:36)
[2018-03-14] MEDS: CARVEDILOL 12.5 MG TABLET PO SCH ×2 (10:36→21:43)
[2018-03-14] MEDS: LOSARTAN POTASSIUM 50 MG TABLET PO SCH ×2 (10:36→21:43)
[2018-03-14] MEDS ORDERED: POTASSIUM CHLORIDE 10 MEQ CAPSULE.ER PO ONE (11:39)
[2018-03-14] MEDS: INSULIN LISPRO 100 UNIT/ML 3 ML VIAL SUBCUT PRN ×2 (11:59→17:43)
[2018-03-14] MEDS: ISOSORBIDE MONONITRATE 30 MG TAB.ER.24H PO SCH (12:00)
--- NOTE | 2018-03-14 12:54 | RADIOLOGY REPORT (SQ) ---
EXAM DESCRIPTION: CHEST SINGLE VIEW COMPLETED DATE/TIME: 03/14/2018 12:44 pm REASON FOR STUDY: chf COMPARISON: 03/13/2018. EXAM PARAMETERS: NUMBER OF VIEWS: One view. TECHNIQUE: Single frontal radiographic view of the chest acquired. RADIATION DOSE: NA LIMITATIONS: None. FINDINGS: LUNGS AND PLEURA: Improved aeration. Persistent density in the right lung base. Possible small pleural effusions. MEDIASTINUM AND HILAR STRUCTURES: No masses. Contour normal. HEART AND VASCULAR STRUCTURES: Mild cardiomegaly and mild vascular congestion. BONES: No acute findings. HARDWARE: None in the chest. OTHER: No other significant finding. IMPRESSION: IMPROVED APPEARANCE OF THE CHEST. RESIDUAL DENSITY IN THE RIGHT LUNG BASE MAY BE DUE TO ASYMMETRIC PULMONARY EDEMA VERSUS PNEUMONIA. TECHNICAL DOCUMENTATION: JOB ID: [id number]- All Rights Reserved Reading location - IP/workstation name: [email or web address]
[2018-03-14] MEDS: FUROSEMIDE INJ/PF 100 MG/10 ML SDV IV SCH (14:00)
--- NOTE | 2018-03-14 16:11 | PDOC PROGRESS REPORT ---
Subjective Progress Note for:: 03/14/18 Subjective:: Patient is a 57-year-old male with a past medical history of hypertension, hyperlipidemia, diabetes who was admitted 03/10/18 with new diagnosis of CHF. Patient was seen on afternoon rounds. He was found sitting up in the recliner with legs elevated. He is noted to be on supplemental oxygen at 4lpm; he used BiPAP overnight with excellent relief of his orthopnea. He reports that he is feeling much better today; shortness of breath has improved and productive cough has resolved. BLE appears unchanged; +3 tight, nonpitting, edema He further denies fever, chills, headache, dizziness, chest pain, palpitations, abdominal pain, nausea vomiting or diarrhea. He has no new questions or concerns. No concerns per nursing. Reason For Visit: HEART FAILURE Physical Exam Vital Signs: Temp Pulse Resp BP Pulse Ox 97.6 F 66 20 133/87 H 100 03/14/18 11:47 03/14/18 14:00 03/14/18 11:47 03/14/18 11:47 03/14/18 11:47 Pulse Oximeter Continuous Start: 03/10/18 11:40 Freq: RTQ4 Status: Complete Protocol: Document 03/12/18 12:00 DS (Rec: 03/12/18 12:33 [facility] [id number]) Pulse Oximetry Assessment Oxygen Saturation (92-100) 96 Oxygen Flow Rate (L/min) 2 Equipment Usage Equipment in Use Continuous SpO2 Machine # 2 Pulse Oximeter Nocturnal Start: 03/12/18 13: 42 Freq: RTQ4 Status: Complete Protocol: Document 03/13/18 06:06 CMI (Rec: 03/13/18 06:06 CMI [id number]) Nocturnal Pulse Oximetry Equipment Usage Equipment Discontinued Continuous SpO2 Machine # 2 Intake & Output 03/13/18 03/14/18 03/15/18 06:59 06:59 06:59 Intake Total 5514 877 546 Output Total 1331 7692 600 Balance -556 -2338 -54 Weight 123.9 kg 125.8 kg General appearance: PRESENT: no acute distress, cooperative - pleasant, obese, well-developed, well-nourished Head exam: PRESENT: atraumatic, normocephalic Eye exam: PRESENT: conjunctiva pink, EOMI, PERRLA. ABSENT: scleral icterus Ear exam: PRESENT: normal external ear exam Mouth exam: PRESENT: moist, tongue midline Neck exam: ABSENT: carotid bruit, JVD, lymphadenopathy, thyromegaly Respiratory exam: PRESENT: crackles - right lower gold, decreased breath sounds - bibasilar, symmetrical, unlabored, other - supplemental oxygen. ABSENT: rales, rhonchi, wheezes Cardiovascular exam: PRESENT: RRR, +S1, +S2. ABSENT: diastolic murmur, rubs, systolic murmur Pulses: PRESENT: normal dorsalis pedis pul Vascular exam: PRESENT: normal capillary refill GI/Abdominal exam: PRESENT: normal bowel sounds, soft. ABSENT: distended, gua rding, mass, organolmegaly, rebound, tenderness Rectal exam: PRESENT: deferred Extremities exam: PRESENT: full ROM, pedal edema - +3 BLE. ABSENT: calf tenderness, clubbing Neurological exam: PRESENT: alert, awake, oriented to person, oriented to place, oriented to time, oriented to situation, CN II-XII grossly intact. ABSENT: motor sensory deficit Psychiatric exam: PRESENT: appropriate affect, normal mood. ABSENT: homicidal ideation, suicidal ideation Skin exam: PRESENT: dry, intact, warm. ABSENT: cyanosis, rash Results Laboratory Results: 03/14/18 04:48 03/14/18 04:48 03/14/18 03/14/18 04:48 04:48 WBC 7.5 RBC 3.55 L Hgb 10.8 L Hct 32.1 L MCV 90 MCH 30.4 MCHC 33.6 RDW 16.2 H Plt Count 306 Sodium 136.1 L Potassium 3.5 L Chloride 105 Carbon Dioxide 28 Anion Gap 3 L BUN 29 H Creatinine 1.64 H Est GFR ( Amer) 52 L Est GFR (Non-Af Amer) 43 L Glucose 126 H Calcium 7.9 L 03/10/18 03/10/18 03/10/18 08:55 08:55 13:00 Creatine Kinase 656 H CK-MB (CK-2) 4.28 Troponin I 0.044 0.043 NT-Pro-B Natriuret Pep 6080 H 03/11/18 03/12/18 12:37 05:20 Creatine Kinase CK-MB (CK-2) Troponin I 0.029 NT-Pro-B Natriuret Pep 5050 H 4800 H Impressions: Chest X-Ray 03/14/18 00:00 IMPRESSION: IMPROVED APPEARANCE OF THE CHEST. RESIDUAL DENSITY IN THE RIGHT LUNG BASE MAY BE DUE TO ASYMMETRIC PULMONARY EDEMA VERSUS PNEUMONIA. Assessment & Plan - Diagnosis (1) Acute CHF (congestive heart failure) Qualifiers: Heart failure type: systolic Qualified Code(s): I50.21 - Acute systolic (congestive) heart failure Is this a current diagnosis for this admission?: Yes Plan: New diagnosis of CHF; improved today. Repeat chest x-ray today demonstrates pulmonary edema; pneumonia cannot be excluded Echocardiogram revealed LVEF 40-45% with normal diastolic function, moderate g lobal hypokinesis of the left ventricle, and moderate pulmonary hypertension. ProBNP 6080 --> 4800. Supplemental oxygen as needed to maintain oxygen saturations greater than 90%. BiPAP nightly and as needed. Continue cardiac diet. Daily weights, strict I&O's. The registered dietitian, patient educator, motor coach supervisor, and merchandise planner are consulted. Cardiology is consulted; appreciate Dr. King's assistance. Medications adjusted per his expertise. Currently on Carvedilol 25 mg p.o. twice daily, losartan 50 mg twice daily, Isosorbid 30 mg daily, with aspirin and statin therapy. Continue IV furosemide. (2) Chest pain Qualifiers: Chest pain type: unspecified Qualified Code(s): R07.9 - Chest pain, unspecified Is this a current diagnosis for this admission?: Yes Plan: No further episodes of chest discomfort. The patient presented with a complaint of chest pain on exertion. He does have a history of hypertension, hyperlipidemia, and diabetes. Serial troponins were indeterminately elevated but trending downward x3. Stress test was completed this morning; report pending. Spoke with Dr. Iniguez; reveals dilated cardiomyopathy. No acute findings. Continue daily aspirin and statin therapy. (3) Chronic kidney disease, stage III (moderate) Is this a current diagnosis for this admission?: Yes Plan: Stable. Creatinine was elevated to 1.64 on admission, however, BUN appropriate at 22. Likely chronic CKD3. Avoid nephrotoxic medications. Optimize cardiac output/CHF management. Daily chemistries. (4) Hypertensive emergency Is this a current diagnosis for this admission?: Yes Plan: Blood pressures are improved today; 133/87 Medications as above. Cardiac diet. (5) Type 2 diabetes mellitus Qualifiers: Diabetes mellitus under baster insulin use: without under baster use Diabetes mellitus complication status: with kidney complications Diabetes mellitus complication detail: with chronic kidney disease Chronic kidney disease stage: stage 3 (moderate) Qualified Code(s): E11.22 - Type 2 diabetes mellitus with diabetic chronic kidney disease; N18.3 - Chronic kidney disease, stage 3 (moderate) Is this a current diagnosis for this admission?: Yes Plan: A1c 7.3%. Holding glipizide while inpatient. Consistent carb diet. Accu-Cheks before meals and at bedtime with sliding scale insulin for coverage. The registered dietitian and assistant health educator consulted. - Time Time Spent with patient: 15-24 minutes Medications reviewed and adjusted accordingly: Yes Anticipated discharge: Home Within: within 48 hours
[2018-03-14] MEDS: LEVOFLOXACIN 750 MG/D5W RTU 750 MG/150 ML RTUPB IV SCH (17:44)
--- NOTE | 2018-03-14 19:11 | Progress Note ---
Provider Note Provider Note: CARDIOLOGY PROGRESS NOTE by Dr. Deonna Iniguez on 03/14/2018. SUBJECTIVE: The patient states that shortness of breath is much better. He has no orthopnea or PND. His leg edema remains the same. He states that he slept well after wearing BiPAP last night. His nocturnal oximetry show some desaturations below 90%. The patient probably has sleep apnea. He also states that he has no orthopnea when he uses the BiPAP. He had a run of nonsustained ventricular tachycardia. He was asymptomatic. In view of the few beats of nonsustained ventricular tachycardia, especially with the potassium being 3.5 there is low, his dobutamine drip will be stopped. He denies any chest pain or discomfort. Surprisingly there is no cough or sputum production. There is no anginal symptoms. There is no TIA CVA symptoms. There is no sustained ventricular arrhythmia or atrial arrhythmia seen. PHYSICAL EXAMINATION: The patient is mildly obese. He is well groomed. At present in no acute distress. Selected Entries 03/14/18 07:37 Temperature 97.7 F Temperature Oral Source Pulse Rate 70 Respiratory 16 Rate Blood Pressure 146/83 H Blood Pressure 104 Mean BP Location Left Arm BP Position Sitting O2 Sat by Pulse 100 Oximetry Oxygen Flow 4.00 Rate Oxygen Delivery Nasal Cannula Method HEAD: Is atraumatic normocephalic. EYES: Pupils are equal round regular reactive to light and accommodation. Extraocular movements are normal. There is no clinical pallor. There is no scleral icterus. EARS: External auditory canals are clear. There is no lesions on the pinna. NOSE: Nasal mucous membranes him without any inflammation. There is no deviated nasal septum. MOUTH: Mucous noted in the mouth are moist tongue is moist. There is no ulcers. There is no bleeding from the gums. THROAT: There is no redness of the oropharynx. There is no exudates. SKIN: There is no petechia or ecchymosis. There is no skin lesions or skin rashes. The patient does have venous stasis dermatitis and lower extremities. LUNGS: There are a few dry crackles in the right base. No rales of CHF today. There is no chest wall tenderness. There is no rhonchi or wheezing. HEART: S1-S2 is heard there is murmur of aortic sclerosis present. No aortic stenosis murmur. No aortic regurgitation murmur there is systolic murmur in the left sternal border and the apex without any radiation. There is no rub. There is no S3 gallop. There is no S4 gallop. ABDOMEN: Is mildly obese. Nontender. The bowel sounds are normal. There is no hepatosplenomegaly. There is no rebound guarding or rigidity. EXTREMITIES: Femorals are diminished. Leg pulses are diminished. There is 3+ nonpitting edema bilaterally. There is no DVT. There is venous stasis dermatitis present. There is no calf tenderness. WOMEN DESIGNER: The patient is conscious awake alert oriented x3 with no focal deficit. PSYCHIATRIC: The patient judgment insight are intact his affect is normal. 03/14/18 03/14/18 04:48 04:48 WBC 7.5 RBC 3.55 L Hgb 10.8 L Hct 32.1 L MCV 90 MCH 30.4 MCHC 33.6 RDW 16.2 H Plt Count 306 Sodium 136.1 L Potassium 3.5 L Chloride 105 Carbon Dioxide 28 Anion Gap 3 L BUN 29 H Creatinine 1.64 H Est GFR ( Amer) 52 L Glucose 126 H Calcium 7.9 L CHEST X-ray: Shows right lower lobe infiltrate. No evidence of congestive heart failure by my interpretation. IMPRESSION/RECOMMENDATION: 1. Congestive heart failure: Much improved. Continue patient on Coreg. Continue the patient's Lasix note that the IV Lasix dose has been decreased. Later we will change to p.o. Lasix. Note that the patient is being started on Cozaar 50 mg p.o. every 12 hours. We will stop the patient's dobutamine. 2. Cardiomyopathy with moderately reduced LV ejection fraction. This is dilated nonischemic cardiac myopathy. Note that the patient's stress test showed no reversible ischemia and no scar or NE. 3. Hypokalemia: Replace the patient's potassium which has been done. 4. Hypertension blood pressure much better controlled. But suspect with the addition of Cozaar patient blood pressure will be much improved. In view of the patient diabetes would like to get the systolic down to 110 or below as long as the patient is not symptomatic due to low blood pressure. 5. Diabetes mellitus: Continue antidiabetic treatment. 6. Chronic kidney disease stage III A. Continue to watch renal function so has not to over diuresis the patient. 7. Probably has sleep apnea: Continue empiric BiPAP at night. The patient has been advised to have a sleep study in [place] when he gets back there. 8. Short run of nonsustained ventricular tachycardia. Asymptomatic. Most likely secondary to the patient's hypokalemia with the patient being on dobutamine. Note the potassium has been replaced, and the patient's dobutamine has been discontinued. There is been no recurrence of this. Would continue to watch the monitor for recurrence of ventricular tachycardia. If there is recurrence of sustained or nonsustained ventricular tachycardia, the patient would require an EP consultation for possible AICD placement. Medications reviewed medications adjusted. Medical management discussed with attending physician on the case and also the medication changes have been discussed. Medical decision making is of high complexity. Note 40 minutes spent on this patient with more than 50% time spent in direct patient care. The patient is a full code. His is a surrogate healthcare decision maker.
[2018-03-14] MEDS: ATORVASTATIN CALCIUM 20 MG TABLET PO SCH (21:43)
--- NOTE | 2018-03-14 23:22 | DRAGON STRESS TEST REPORT ---
Intravenous Lexiscan Cardiolite stress test using single photon emmision computerized tomography. Date of procedure: 03/12/2018. Ordering Provider: Ms. Cleopatra Up NP. Patient's status: Inpatient Indication: Chest pain. Coronary risk factors: Age, diabetes mellitus, dyslipidemia, and hypertension. Resting EKG: Sinus Rhythm. T inversion in the lateral leads. Stress EKG: No changes of ischemia. The patient had no chest pain or discomfort, and there were no arrhythmias seen. Reason for termination: Protocol. Conclusions: Normal EKG and hemodynamic response to IV Lexiscan. Nuclear data: At rest the patient was given 15.65 millicuries of technetium 99m sestamibi injected intravenously. As per protocol rest non gated SPECT images were obtained. Subsequently the patient was given intravenous Lexiscan at a dose of 0.4 mg in 5 mL intravenously, followed by flush with normal saline. Subsequently the stress dose of 46.5 millicuries of technetium 99m sestamibi was injected intravenously. As per protocol stress gated images were obtained. Nuclear interpretation: Review of images showed that all segments of the myocardium had normal perfusion at rest, and normal perfusion post stress with IV Lexiscan.All segments of the myocardium had normal thickening by gated study. The left ventricle was dilated, and there was global moderate decrease in LV systolic function consistent with cardiomyopathy. T. I D. ratio was normal at 0.99. There is no transient ischemic dilatation of the left ventricle. Computer read rest, and stress left ventricular ejection fraction were 28 %, and 32 %, respectively. Conclusion: 1. There is no scintigraphic evidence of Lexiscan induced myocardial ischemia. 2. There is no scintigraphic evidence of myocardial infarction/scar. 3. There is evidence of nonischemic dilated cardiomyopathy with severely reduced LV ejection fraction. Recommendations: 1. Check echo LVEF for LV ejection fraction correlation. 2.Aggressive risk factor modification, and treating the underlying co- morbidities. SCOTT
[2018-03-15] MEDS: HEPARIN SOD (PORCINE) 5,000 UNIT/ML 1 ML SYRINGE SUBCUT SCH ×3 (05:09→21:24)
[2018-03-15 05:20] LABS: BLOOD UREA NITROGEN 29 mg/dL (7-20); GLUCOSE 137 mg/dL (75-110); POTASSIUM 3.8 mmol/L (3.6-5.0); SODIUM 135.2 mmol/L (137-145)
[2018-03-15 05:27] LABS: ANION GAP 2 (5-19); CARBON DIOXIDE 28 mmol/L (22-30); CHLORIDE 105 mmol/L (98-107)
[2018-03-15] MEDS ORDERED: FUROSEMIDE INJ/PF 40 MG/4 ML SDV IV SCH ×2 (06:00→14:00)
[2018-03-15] MEDS ORDERED: FUROSEMIDE INJ/PF 100 MG/10 ML SDV IV SCH ×2 (06:00→14:00)
[2018-03-15] MEDS: ASPIRIN 325 MG TABLET, ENT COATED PO SCH (10:16)
[2018-03-15] MEDS: CARVEDILOL 12.5 MG TABLET PO SCH ×2 (10:16→21:24)
[2018-03-15] MEDS: ISOSORBIDE MONONITRATE 30 MG TAB.ER.24H PO SCH (10:16)
[2018-03-15] MEDS: LOSARTAN POTASSIUM 50 MG TABLET PO SCH ×2 (10:16→21:24)
[2018-03-15] MEDS: INSULIN LISPRO 100 UNIT/ML 3 ML VIAL SUBCUT PRN (12:45)
[2018-03-15] MEDS ORDERED: FUROSEMIDE 40 MG TABLET PO ONE (14:00)
--- NOTE | 2018-03-15 16:22 | PDOC PROGRESS REPORT ---
Subjective Progress Note for:: 03/15/18 Subjective:: Patient is a 57-year-old male with a past medical history of hypertension, hyperlipidemia, diabetes who was admitted 03/10/18 with new diagnosis of CHF. Patient was seen on afternoon rounds. He was found sitting up in the recliner with legs elevated. He is noted to be on supplemental oxygen at 2lpm; he used BiPAP overnight with excellent relief of his orthopnea. He reports that he is continuing to feel better; shortness of breath and cough have resolved. BLE appears unchanged; +3 tight, nonpitting, edema He further denies fever, chills, headache, dizziness, chest pain, palpitations, abdominal pain, nausea vomiting or diarrhea. He has no new questions or concerns. No concerns per nursing. Reason For Visit: HEART FAILURE Physical Exam Vital Signs: Temp Pulse Resp BP Pulse Ox 98.6 F 64 22 H 139/85 H 99 03/15/18 11:20 03/15/18 14:00 03/15/18 13:47 03/15/18 11:17 03/15/18 13:47 Pulse Oximeter Continuous Start: 03/10/18 11:40 Freq: RTQ4 Status: Complete Protocol: Document 03/12/18 12:00 DS (Rec: 03/12/18 12:33 [facility] [id number]) Pulse Oximetry Assessment Oxygen Saturation (92-100) 96 Oxygen Flow Rate (L/min) 2 Equipment Usage Equipment in Use Continuous SpO2 Machine # 2 Pulse Oximeter Nocturnal Start: 03/12/18 13:42 Freq: RTQ4 Status: Complete Protocol: Document 03/13/18 06:06 CMI (Rec: 03/13/18 06:06 CMI [id number]) Nocturnal Pulse Oximetry Equipment Usage Equipment Discontinued Continuous SpO2 Machine # 2 Intake & Output 03/14/18 03/15/18 03/16/18 06:59 06:59 06:59 Intake Total 587 1514 459 Output Total 4976 1250 1300 Balance -2338 264 -841 Weight 125.8 kg 125.8 kg General appearance: PRESENT: no acute distress, cooperative - pleasant, obese, well-developed, well-nourished Head exam: PRESENT: atraumatic, normocephalic Eye exam: PRESENT: conjunctiva pink, EOMI, PERRLA. ABSENT: scleral icterus Ear exam: PRESENT: normal external ear exam Mouth exam: PRESENT: moist, tongue midline Neck exam: ABSENT: carotid bruit, JVD, lymphadenopathy, thyromegaly Respiratory exam: PRESENT: clear to auscultation liseth, decreased breath sounds - bibasilar; L>R, symmetrical, unlabored, other - supplemental oxygen. ABSENT: rales, rhonchi, wheezes Cardiovascular exam: PRESENT: RRR, +S1, +S2. ABSENT: diastolic murmur, rubs, systolic murmur Pulses: PRESENT: normal dorsalis pedis pul Vascular exam: PRESENT: normal capillary refill GI/Abdominal exam: PRESENT: normal bowel sounds, soft. ABSENT: distended, guarding, mass, organolmegaly, rebound, tenderness Rectal exam: PRESENT: deferred Extremities exam: PRESENT: full ROM, pedal edema - +3 BLE. ABSENT: calf tenderness, clubbing Neurological exam: PRESENT: alert, awake, oriented to person, oriented to place, oriented to time, oriented to situation, CN II-XII grossly intact. ABSENT: motor sensory deficit Psychiatric exam: PRESENT: appropriate affect, normal mood. ABSENT: homicidal ideation, suicidal ideation Skin exam: PRESENT: dry, intact, warm. ABSENT: cyanosis, rash Results Laboratory Results: 03/14/18 04:48 03/15/18 04:45 03/15/18 04:45 Sodium 135.2 L Potassium 3.8 Chloride 105 Carbon Dioxide 28 Anion Gap 2 L BUN 29 H Creatinine 1.70 H Est GFR ( Amer) 50 L Est GFR (Non-Af Amer) 41 L Glucose 137 H Calcium 8.0 L 03/10/18 03/10/18 03/10/18 08:55 08:55 13:00 Creatine Kinase 656 H CK-MB (CK-2) 4.28 Troponin I 0.044 0.043 NT-Pro-B Natriuret Pep 6080 H 03/11/18 03/12/18 12:37 05:20 Creatine Kinase CK-MB (CK-2) Troponin I 0.029 NT-Pro-B Natriuret Pep 5050 H 4800 H Impressions: Chest X-Ray 03/14/18 00:00 IMPRESSION: IMPROVED APPEARANCE OF THE CHEST. RESIDUAL DENSITY IN THE RIGHT LUNG BASE MAY BE DUE TO ASYMMETRIC PULMONARY EDEMA VERSUS PNEUMONIA. Assessment & Plan - Diagnosis (1) Acute CHF (congestive heart failure) Qualifiers: Heart failure type: systolic Qualified Code(s): I50.21 - Acute systolic (congestive) heart failure Is this a current diagnosis for this admission?: Yes Plan: New diagnosis of CHF; improved today. Repeat chest x-ray today demonstrates pulmonary edema; pneumonia cannot be excluded Echocardiogram revealed LVEF 40-45% with normal diastolic function, moderate global hypokinesis of the left ventricle, and moderate pulmonary hypertension. ProBNP 6080 --> 4800. Supplemental oxygen as needed to maintain oxygen saturations greater than 90%. BiPAP nightly and as needed. Continue cardiac diet. Daily weights, strict I&O's. The registered dietitian, patient educator, assistant women's tennis coach, and digital media planner are consulted. Cardiology is consulted; appreciate Dr. King's assistance. Medications adjusted per his expertise. Currently on Carvedilol 25 mg p.o. twice daily, losartan 50 mg twice daily, Isosorbid 30 mg daily, with aspirin and statin therapy. Transition to p.o furosemide. (2) Chest pain Qualifiers: Chest pain type: unspecified Qualified Code(s): R07.9 - Chest pain, unspecified Is this a current diagnosis for this admission?: Yes Plan: No further episodes of chest discomfort. The patient presented with a complaint of chest pain on exertion. He does have a history of hypertension, hyperlipidemia, and diabetes. Serial troponins were indeterminately elevated but trending downward x3. Stress test was completed reveals dilated cardiomyopathy. No acute findings. Continue daily aspirin and statin therapy. Cardiology consulted. (3) Chronic kidney disease, stage III (moderate) Is this a current diagnosis for this admission?: Yes Plan: Stable. Creatinine was elevated to 1.64 on admission, however, BUN appropriate at 22. Likely chronic CKD3. Avoid nephrotoxic medications. Optimize cardiac output/CHF management. Daily chemistries. (4) Hypertensive emergency Is this a current diagnosis for this admission?: Yes Plan: Blood pressures are improved today; 131/71 Medications as above. Cardiac diet. (5) Type 2 diabetes mellitus Qualifiers: Diabetes mellitus ad terminal makeup operator insulin use: without senior care use Diabetes mellitus complication status: with kidney complications Diabetes mellitus complication detail: with chronic kidney disease Chronic kidney disease stage: stage 3 (moderate) Qualified Code(s): E11.22 - Type 2 diabetes mellitus with diabetic chronic kidney disease; N18.3 - Chronic kidney disease, stage 3 (moderate) Is this a current diagnosis for this admission?: Yes Plan: A1c 7.3%. Holding glipizide while inpatient. Consistent carb diet. Accu-Cheks before meals and at bedtime with sliding scale insulin for coverage. The registered dietitian and post manager consulted. (6) LLL pneumonia Qualifiers: Pneumonia type: due to unspecified organism Qualified Code(s): J18.1 - Lobar pneumonia, unspecified organism Is this a current diagnosis for this admission?: Yes Plan: Patient is placed on supplemental oxygen and BiPAP as needed to maintain oxygen saturations. Levaquin. Incentive spirometer and flutter valve to bedside. - Time Time Spent with patient: 15-24 minutes Medications reviewed and adjusted accordingly: Yes Anticipated discharge: Home Within: within 24 hours
--- NOTE | 2018-03-15 17:01 | Progress Note ---
Provider Note Provider Note: CARDIOLOGY PROGRESS NOTE by Dr. Deonna Iniguez on 03/15/2018. SUBJECTIVE: The patient did use BiPAP last night, and feels refreshed. He states he also slept well yesterday night also. There is no chest pain or discomfort. There is no shortness of breath there is no cough or sputum production. There is no palpitations. There is no recurrence of ventricular tachycardia. There is no atrial arrhythmias. His leg edema is the same he has no PND orthopnea. There is no TIA CVA symptoms. PHYSICAL EXAMINATION: The patient is mildly obese. He is well-groomed. He is in no acute distress. Selected Entries 03/15/18 07:40 Temperature 97.7 F Temperature Oral Source Pulse Rate 73 Respiratory 20 Rate Blood Pressure 139/84 H Blood Pressure 102 Mean BP Location Right Arm O2 Sat by Pulse 99 Oximetry Oxygen Flow 2.00 Rate Oxygen Delivery Nasal Cannula Method HEAD: Is atraumatic normocephalic. EYES: Pupils are equal round regular reactive to light and accommodation. Extraocular movements are normal. There is no clinical pallor. There is no scleral icterus. EARS: External auditory canals are clear. There is no lesions on the pinna. NOSE: Nasal mucous membranes him without any inflammation. There is no deviated nasal septum. MOUTH: Mucous noted in the mouth are moist tongue is moist. There is no ulcers. There is no bleeding from the gums. THROAT: There is no redness of the oropharynx. There is no exudates. SKIN: There is no petechia or ecchymosis. There is no skin lesions or skin rashes. The patient does have venous stasis dermatitis and lower extremities. LUNGS: There are a few dry crackles in the right base. No rales of CHF today. There is no chest wall tenderness. There is no rhonchi or wheezing. HEART: S1-S2 is heard there is murmur of aortic sclerosis present. No aortic stenosis murmur. No aortic regurgitation murmur there is systolic murmur in the left sternal border and the apex without any radiation. There is no rub. There is no S3 gallop. There is no S4 gallop. ABDOMEN: Is mildly obese. Nontender. The bowel sounds are normal. There is no hepatosplenomegaly. There is no rebound guarding or rigidity. EXTREMITIES: Femorals are diminished. Leg pulses are diminished. There is 3+ nonpitting edema bilaterally. There is no DVT. There is venous stasis dermatitis present. There is no calf tenderness. POLICE ARTIST: The patient is conscious awake alert oriented x3 with no focal deficit. PSYCHIATRIC: The patient judgment insight are intact his affect is normal. 03/15/18 03/15/18 04:45 12:41 Sodium 135.2 L Potassium 3.8 Chloride 105 Carbon Dioxide 28 Anion Gap 2 L BUN 29 H Creatinine 1.70 H Est GFR ( Amer) 50 L POC Glucose 187 H Calcium 8.0 L The patient's 24-hour intake is 1514 mL, and output is 1250 mL. IMPRESSION/RECOMMENDATION: 1. Congestive heart failure: Much improved. Continue patient on Coreg. Continue the patient's Lasix note that the IV Lasix dose has been decreased. Recommend change to p.o. Lasix. Note that the patient is being started on Cozaar 50 mg p.o. every 12 hours. We will stop the patient's dobutamine. 2. Cardiomyopathy with moderately reduced LV ejection fraction. This is dilated nonischemic cardiac myopathy. Note that the patient's stress test showed no reversible ischemia and no scar or ID. 3. Hypokalemia: Replace the patient's potassium which has been done. 4. Hypertension blood pressure much better controlled. But suspect with the addition of Cozaar patient blood pressure will be much improved. In view of the patient diabetes would like to get the systolic down to 110 or below as long as the patient is not symptomatic due to low blood pressure. 5. Diabetes mellitus: Continue antidiabetic treatment. 6. Chronic kidney disease stage III A. Continue to watch renal function so has not to over diuresis the patient. 7. Probably has sleep apnea: Continue empiric BiPAP at night. The patient has been advised to have a sleep study in [place] when he gets back there. 8. Short run of nonsustained ventricular tachycardia. Asymptomatic. Most likely secondary to the patient's hypokalemia with the patient being on dobutamine. Note the potassium has been replaced, and the patient's dobutamine has been discontinued. There is been no recurrence of this. Would continue to watch the monitor for recurrence of ventricular tachycardia. If there is recurrence of sustained or nonsustained ventricular tachycardia, the patient would require an EP consultation for possible AICD placement.
[2018-03-15] MEDS ORDERED: LEVOFLOXACIN 750 MG TABLET PO SCH (18:00)
[2018-03-15] MEDS: ATORVASTATIN CALCIUM 20 MG TABLET PO SCH (21:24)
[2018-03-16] MEDS: HEPARIN SOD (PORCINE) 5,000 UNIT/ML 1 ML SYRINGE SUBCUT SCH (07:02)
[2018-03-16] MEDS: CARVEDILOL 12.5 MG TABLET PO SCH (09:11)
[2018-03-16] MEDS: LOSARTAN POTASSIUM 50 MG TABLET PO SCH (09:11)
[2018-03-16] MEDS: ASPIRIN 325 MG TABLET, ENT COATED PO SCH (09:12)
[2018-03-16] MEDS: ISOSORBIDE MONONITRATE 30 MG TAB.ER.24H PO SCH (09:12)
[2018-03-16] MEDS ORDERED: FUROSEMIDE 40 MG TABLET PO SCH (10:00)
[2018-03-16 12:00] VITALS: BP 138/82
[2018-03-16] MEDS: INSULIN LISPRO 100 UNIT/ML 3 ML VIAL SUBCUT PRN (12:02)
--- NOTE | 2018-03-16 16:19 | PDOC DISCHARGE SUMMARY ---
General - Admit/Disc Date/PCP Admission Date/Primary Care Provider: 03/10/18 11:40 Discharge Date: 03/16/18 - Discharge Diagnosis (1) Acute CHF (congestive heart failure) Is this a current diagnosis for this admission?: Yes Summary: New diagnosis of CHF; acute exacerbation has resolved, now stable. Repeat chest x-ray today demonstrates pulmonary edema; pneumonia cannot be excluded Echocardiogram revealed LVEF 40-45% with normal diastolic function, moderate global hypokinesis of the left ventricle, and moderate pulmonary hypertension. ProBNP 6080 --> 4800. The patient was admitted to [facility] on continuous cardiac telemetry. He was provided supplemental oxygen and BiPAP as needed to maintain oxygen saturations greater than 90%. He was placed on a cardiac diet with daily weights and strict I&O's. The patient met with the registered dietitian, patient educator, and gymnastics coach or instructor. He was educated on the importance of a low sodium diet and daily weights. Cardiology was consulted; medications were adjusted per Dr. King's expertise. He received IV furosemide with satisfactory diuresis. Patient is advised of the importance of establishing with a payroll benefits administrator and in obtaining an overnight sleep study to obtain CPAP machine. While at rest, the patient maintained oxygen saturations in the low 90s, but with ambulation desatted to the mid 80s while on room air. Discharge planning was consulted; arrangements were made for the patient to receive home supplemental oxygen. The patient is discharged to home with supplemental oxygen. Patient is discharged on carvedilol, losartan, isosorbide, Lasix, aspirin and simvastatin. He is advised to follow up with his primary care provider within 1 week and to establish with a payroll benefits administrator as soon as possible. Return to the Emergency Department as needed for concerning symptoms. (2) Chest pain Is this a current diagnosis for this admission?: Yes Summary: No further episodes of chest discomfort. The patient presented with a complaint of chest pain on exertion. He does have a history of hypertension, hyperlipidemia, and diabetes. Serial troponins were indeterminately elevated but trending downward x3. Stress test was completed reveals dilated cardiomyopathy. No acute findings. Medications and outpatient follow up recommendations as above. (3) Chronic kidney disease, stage III (moderate) Is this a current diagnosis for this admission?: Yes Summary: Stable. Creatinine was elevated to 1.64 on admission, however, BUN appropriate at 22. Likely chronic CKD3. (4) Hypertensive emergency Is this a current diagnosis for this admission?: Yes Summary: Resolved; blood pressures are improved today, 138/82 Medications as above. (5) Type 2 diabetes mellitus Is this a current diagnosis for this admission?: Yes Summary: A1c 7.3%. Recommend resuming home medication regiment on discharge. (6) LLL pneumonia Is this a current diagnosis for this admission?: Yes Summary: CXR demonstrated a left lower lobe consolidation. Patient was placed on Levaquin and provided a prescription at discharge to complete the course of therapy. - Additional Information Discharge Diet: As Tolerated, Cardiac, Diabetic Discharge Activity: Activity As Tolerated, Balance Activity w/Rest, Weigh Daily Prescriptions: Aspirin [Ecotrin 325 mg EC Tablet] 325 mg PO DAILY #90 tabec Carvedilol [Coreg 12.5 mg Tablet] 25 mg PO Q12 #60 tablet Furosemide [Lasix 40 mg Tablet] 40 mg PO BID #60 tablet Ipratropium/Albuterol Sulfate [Duoneb 3 ml Ampul] 3 ml NEB RTQ4HP PRN #120 vial.neb PRN Reason: Shortness Of Breath Isosorbide Mononitrate [Imdur 30 mg Tablet.er] 30 mg PO DAILY #30 tab.er.24h Levofloxacin [Levaquin 750 mg Tablet] 750 mg PO QPM #4 tablet Losartan Potassium [Cozaar 50 mg Tablet] 50 mg PO Q12 #60 tablet Home Medications: Simvastatin [Zocor 20 mg Tablet] 20 mg PO QPM 03/10/18 Aspirin [Ecotrin 325 mg EC Tablet] 325 mg PO DAILY #90 tabec 03/16/18 Carvedilol [Coreg 12.5 mg Tablet] 25 mg PO Q12 #60 tablet 03/16/18 Furosemide [Lasix 40 mg Tablet] 40 mg PO BID #60 tablet 03/16/18 Ipratropium/Albuterol Sulfate [Duoneb 3 ml Ampul] 3 ml NEB RTQ4HP PRN #120 vial.neb 03/16/18 Isosorbide Mononitrate [Imdur 30 mg Tablet.er] 30 mg PO DAILY #30 tab.er.24h 03/16/18 Levofloxacin [Levaquin 750 mg Tablet] 750 mg PO QPM #4 tablet 03/16/18 Losartan Potassium [Cozaar 50 mg Tablet] 50 mg PO Q12 #60 tablet 03/16/18 History of Present Illness History of Present Illness: Per H&P by Dr. Davis: JARED HORVATH is a 57 year old male with a past medical history of hypertension, diabetes, and hypercholesterolemia who presents with shortness of breath. He had been having worsening shortness of breath that have been developing over the past several days. He went to an urgent care today and they took a look at him and sent him to the ER. He tells me that he has been having worsening swelling in his legs over the past few weeks. He has not been able to lay down flat and has been sleeping pretty much propped up for several w eeks as well. He does not wear oxygen at home. He has no prior diagnosis of heart failure. He lives between here with his daughter and in [place] where his primary care provider is. He says he has never had a heart attack, nor has he ever had to have a cardiac catheterization or stress test. He does not know if he is ever had an echocardiogram. He says he has been taking his medications as directed. He was diffusely edematous with an elevated BNP and pulmonary edema on examination. He says he has been wearing compression stockings once he noticed the swelling in his feet was getting bad, but he says that the swelling just got worse and came up his legs and to his abdomen and l ower back. He said that he had one episode of chest pain yesterday when he got up to go to the bathroom and when he got back to the couch it had resolved so it only lasted for a few minutes. He said it was on the left side of his chest and did not radiate. He has a hard time describing exactly what it felt like, just that it was uncomfortable. He does not recall ever having experienced anything like that before. He does not smoke. 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 Physical Exam Vital Signs: Temp Pulse Resp BP Pulse Ox 97.8 F 73 16 138/82 H 99 03/16/18 13:12 03/16/18 13:12 03/16/18 13:12 03/16/18 13:12 03/16/18 13:12 Pulse Oximeter Continuous Start: 03/10/18 11:40 Freq: RTQ4 Status: Complete Protocol: Document 03/12/18 12:00 DSH (Rec: 03/12/18 12:33 DS [id number]) Pulse Oximetry Assessment Oxygen Saturation (92-100) 96 Oxygen Flow Rate (L/min) 2 Equipment Usage Equipment in Use Continuous SpO2 Machine # 2 Pulse Oximeter Nocturnal Start: 03/12/18 13:42 Freq: RTQ4 Status: Complete Protocol: Document 03/13/18 06:06 CMI (Rec: 03/13/18 06:06 CMI [id number]) Nocturnal Pulse Oximetry Equipment Usage Equipment Discontinued Continuous SpO2 Machine # 2 Intake & Output 03/15/18 03/16/18 03/17/18 06:59 06:59 06:59 Intake Total 1514 1699 222 Output Total 1250 3925 Balance 264 -2226 222 Weight 125.8 kg 124.2 kg General appearance: PRESENT: no acute distress, cooperative, obese, well-develo ped, well-nourished Head exam: PRESENT: atraumatic, normocephalic Eye exam: PRESENT: conjunctiva pink, EOMI, PERRLA. ABSENT: scleral icterus Ear exam: PRESENT: normal external ear exam Mouth exam: PRESENT: moist, tongue midline Neck exam: ABSENT: carotid bruit, JVD, lymphadenopathy, thyromegaly Respiratory exam: PRESENT: clear to auscultation liseth, symmetrical, unlabored, other - Supplemental oxygen via nasal cannula. ABSENT: rales, rhonchi, wheezes Cardiovascular exam: PRESENT: RRR, +S1, +S2. ABSENT: diastolic murmur, rubs, systolic murmur Pulses: PRESENT: normal dorsalis pedis pul Vascular exam: PRESENT: normal capillary refill GI/Abdominal exam: PRESENT: normal bowel sounds, soft. ABSENT: distended, guarding, mass, organolmegaly, rebound, tenderness Rectal exam: PRESENT: deferred Extremities exam: PRESENT: full ROM, other - +3 pitting edema BLE; chronic venous stasis changes. ABSENT: calf tenderness, clubbing, pedal edema Neurological exam: PRESENT: alert, awake, oriented to person, oriented to place, oriented to time, oriented to situation, CN II-XII grossly intact. ABSENT: motor sensory deficit Psychiatric exam: PRESENT: appropriate affect, normal mood. ABSENT: homicidal ideation, suicidal ideation Skin exam: PRESENT: dry, intact, warm. ABSENT: cyanosis, rash Results Laboratory Results: 03/14/18 04:48 03/15/18 04:45 03/10/18 03/10/18 03/10/18 08:55 08:55 13:00 Creatine Kinase 656 H CK-MB (CK-2) 4.28 Troponin I 0.044 0.043 NT-Pro-B Natriuret Pep 6080 H 03/11/18 03/12/18 12:37 05:20 Creatine Kinase CK-MB (CK-2) Troponin I 0.029 NT-Pro-B Natriuret Pep 5050 H 4800 H Impressions: Chest X-Ray 03/14/18 00:00 IMPRESSION: IMPROVED APPEARANCE OF THE CHEST. RESIDUAL DENSITY IN THE RIGHT LUNG BASE MAY BE DUE TO ASYMMETRIC PULMONARY EDEMA VERSUS PNEUMONIA. Qualifiers - * PATIENT BEING DISCHARGED WITH ANY OF THE FOLLOWING DIAGNOSIS: Heart Failure HF Pt being discharged on ACEI for LVEF less than 40%?: No Reason(s) for not prescribing ACEI:: Not indicated HF Pt being discharged on ARBS for LVEF less than 40%?: No Reason(s) for not prescribing ARBS:: Not indicated HF Pt with Afib discharged with Warfarin?: No Reason(s) for not prescribing Warfarin:: Not indicated HF Pt discharged on evidence-based Beta Imer:: Yes Plan Discharge Plan: Discharge to home with self-care. Patient has received home O2. Follow-up with primary care provider within 1 week. Establish with a payroll benefits administrator; may follow-up with Dr. Iniguez if he remains in the [place] area. Obtain an overnight sleep study to qualify for CPAP. Return to emergency room as needed for concerning symptoms. Time Spent: Less than 30 Minutes
== END 2018-03-16 14:55 | disposition home or self-care (01) | DRG 291 ==
LOC: ER 08:35 → EH 11:18 → OBSVTOIN 11:40 → 3W 16:48
PROVIDERS: ADMIT Internal Medicine; ATTEND Internal Medicine
DX: I13.0 Hypertensive heart and chronic kidney disease with heart failure and stage 1 through stage 4 chronic kidney disease, or unspecified chronic kidney disease (principal); I50.21 Acute systolic (congestive) heart failure; J18.1 Lobar pneumonia, unspecified organism; I16.1 Hypertensive emergency; E87.6 Hypokalemia; N18.3 Chronic kidney disease, stage 3 (moderate); E11.22 Type 2 diabetes mellitus with diabetic chronic kidney disease; E78.00 Pure hypercholesterolemia, unspecified; I42.9 Cardiomyopathy, unspecified; Z79.82 Long term (current) use of aspirin; Z79.899 Other long term (current) drug therapy
CPT/HCPCS: 36415; 71045; 71046; 78452; 80048; 80053; 80061; 82550; 82553; 82962; 83036; 83880; 84439; 84443; 84484; 85025; 85027; 85610; 93005; 93010; 93017; 93306; 94640; 94660; 94762; 96374; 99285; A9500; J1250; J1644; J1815; J1940; J1956; J2785; J3490; Q9969

== ENCOUNTER 2018-05-09 11:10 | Emergency (ER) | payer MEDICARE, OTHER ==
[2018-05-09] MEDS ORDERED: CEPHALEXIN 500 MG CAPSULE PO ONE (12:33)
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
[2018-05-09 13:03] VITALS: BP 163/99
== END 2018-05-09 13:18 | disposition home or self-care (01) ==
LOC: ER 11:10
DX: L03.116 Cellulitis of left lower limb (principal); I50.9 Heart failure, unspecified; I11.0 Hypertensive heart disease with heart failure; E11.9 Type 2 diabetes mellitus without complications
CPT/HCPCS: 99283; 82962; A9270

== ENCOUNTER 2018-06-10 17:19 | Emergency (ER) | payer MEDICARE, MEDICAID, OTHER ==
[2018-06-10 18:21] VITALS: BP 195/113
--- NOTE | 2018-06-10 19:16 | ER Document Report ---
ED Medical Screen (RME) - General Chief Complaint: Abnormal Lab Results Stated Complaint: ABNORMAL LABS Time Seen by Provider: 06/10/18 19:10 Primary Care Provider: DYLAN ABAD TEST PILOT, TEST PILOT [Primary Care Provider] - Follow up as needed Mode of Arrival: Ambulatory Information source: Patient TRAVEL OUTSIDE OF THE [place] IN LAST 30 DAYS: No - HPI Notes: 06/10/18 19:16 57-year-old male with a history of type 2 diabetes, hypertension presents for evaluation of abnormal laboratory blood work, states his potassium was 6.0 when he had his blood work done at wound care today, patient does have a wound to his left [place]. Patient does not have a primary care provider states he just moved from [place]. Denies any chronic renal disease, states he is never had a history of hyperkalemia before. exam: s1s2 regular, lungs cta, wound to left lower leg wrapped up. awake, alert and orientated. VSS. no distress initial labs ordered, ekg, cxr I have greeted and performed a rapid initial assessment of this patient. A comprehensive ED assessment and evaluation of the patient, analysis of test results and completion of medical decision making process will be conducted by an additional ED providers. - Related Data Allergies/Adverse Reactions: No Known Allergies Allergy (Verified 06/10/18 17:31) Past Medical History - Social History Frequency of alcohol use: Social Drug Abuse: None - Past Medical History Cardiac Medical History: Reports: Hx Congestive Heart Failure, Hx Hypercholesterolemia, Hx Hypertension Endocrine Medical History: Reports: Hx Diabetes Mellitus Type 2 Renal/ Medical History: Reports: Hx End Stage Renal Disease. Denies: Hx Peritoneal Dialysis Musculoskeltal Medical History: Reports Hx Arthritis, Reports Hx Musculoskeletal Deformity, Reports Hx Musculoskeletal Trauma Traumatic Medical History: Reports: Hx Fractures Past Surgical History: Reports: Hx Abdominal Surgery, Hx Orthopedic Surgery Physical Exam - Vital signs Vitals: Temp Pulse Resp BP Pulse Ox 98.3 F 110 H 18 195/113 H 98 06/10/18 18:17 06/10/18 18:17 06/10/18 18:17 06/10/18 18:17 06/10/18 18:17 Course - Vital Signs Vital signs: Temp Pulse Resp BP Pulse Ox 98.3 F 110 H 18 195/113 H 98 06/10/18 18:17 06/10/18 18:17 06/10/18 18:17 06/10/18 18:17 06/10/18 18:17 Doctor's Discharge - Discharge Referrals: DYLAN ABAD TEST PILOT, TEST PILOT [Primary Care Provider] - Follow up as needed
--- NOTE | 2018-06-10 19:48 | EKG REPORT ---
SEVERITY:- ABNORMAL ECG - SINUS TACHYCARDIA LVH WITH SECONDARY REPOLARIZATION ABNORMALITY : Confirmed by: Deonna Iniguez MD 10-Jun-2018 19:48:27
[2018-06-10 19:55] LABS: ABSOLUTE BASOPHILS # (AUTO) 0.1 10^3/uL (0.0-0.2); ABSOLUTE MONOCYTES (AUTO) 0.8 10^3/uL (0.1-1.4); ABSOLUTE NEUT (AUTO) 5.9 10^3/uL (1.7-8.2); BASOPHILS % (AUTO) 0.9 % (0-2); EOSINOPHILS % (AUTO) 0.6 % (0-6); HEMATOCRIT 41.7 % (37.9-51.0); HEMOGLOBIN 14.3 g/dL (13.5-17.0); LYMPHOCYTES % (AUTO) 12.5 % (13-45); MEAN CORPUSCULAR HEMOGLOBIN 31.3 pg (27.0-33.4); MEAN CORPUSCULAR HGB CONC 34.2 g/dL (32.0-36.0); MEAN CORPUSCULAR VOLUME 91 fl (80-97); MONOCYTES % (AUTO) 10.2 % (3-13); PLATELET COUNT 384 10^3/uL (150-450); RED BLOOD COUNT 4.57 10^6/uL (4.35-5.55); SEGMENTED NEUTROPHILS % (AUTO) 75.8 % (42-78); TOTAL CELLS COUNTED % (AUTO) 100 %; WHITE BLOOD COUNT 7.8 10^3/uL (4.0-10.5)
--- NOTE | 2018-06-10 20:07 | RADIOLOGY REPORT (SQ) ---
EXAM DESCRIPTION: XR CHEST 1 VIEW COMPLETED DATE/TME: 06/10/2018 19:11 CLINICAL HISTORY: 57 years, Male, elevated K time EXAM DESCRIPTION: CLINICAL HISTORY: elevated K time COMPARISON: None. FINDINGS: Single view of the chest is submitted. Cardiac silhouette is normal. No focal parenchymal or pleural disease. No acute bony abnormality. There is no significant pulmonary vascular engorgement. IMPRESSION: No evidence of acute cardiopulmonary disease.
[2018-06-10 20:14] LABS: ALANINE AMINOTRANSFERASE 29 U/L (21-72); ALBUMIN 3.1 g/dL (3.5-5.0); ALKALINE PHOSPHATASE 147 U/L (38-126); ASPARTATE AMINO TRANSFERASE 36 U/L (17-59); BILIRUBIN,DIRECT 0.2 mg/dL (0.0-0.4); BILIRUBIN,TOTAL 0.5 mg/dL (0.2-1.3); BLOOD UREA NITROGEN 25 mg/dL (7-20); CALCIUM 9.5 mg/dL (8.4-10.2); CREATINE KINASE 359 U/L (55-170); GLUCOSE 104 mg/dL (75-110); POTASSIUM 5.4 mmol/L (3.6-5.0); TOTAL PROTEIN 6.9 g/dL (6.3-8.2)
[2018-06-10 20:19] LABS: CARBON DIOXIDE 23 mmol/L (22-30); CHLORIDE 109 mmol/L (98-107); SODIUM 135.4 mmol/L (137-145)
[2018-06-10 20:24] LABS: ANION GAP 3 (5-19); CREATINE KINASE MB 4.16 ng/mL (<4.55)
[2018-06-10 20:52] LABS: TROPONIN I 0.053 ng/mL
== END 2018-06-10 23:13 | disposition left against medical advice (07) ==
LOC: ER 17:19
DX: Z04.89 Encounter for examination and observation for other specified reasons (principal); I12.0 Hypertensive chronic kidney disease with stage 5 chronic kidney disease or end stage renal disease; E11.22 Type 2 diabetes mellitus with diabetic chronic kidney disease; N18.6 End stage renal disease
CPT/HCPCS: 36415; 71045; 80053; 82550; 82553; 84484; 85025; 93005; 93010

== ENCOUNTER → 2018-06-10 | Outpatient (CLI) | payer MEDICARE, MEDICAID, OTHER ==
[2018-06-10 12:45] LABS: ABSOLUTE EOSINOPHILS # (AUTO) 0.1 10^3/uL (0.0-0.6); ABSOLUTE LYMPHOCYTES (AUTO) 0.9 10^3/uL (0.5-4.7); ABSOLUTE MONOCYTES (AUTO) 0.4 10^3/uL (0.1-1.4); ABSOLUTE NEUT (AUTO) 3.8 10^3/uL (1.7-8.2); BASOPHILS % (AUTO) 0.7 % (0-2); EOSINOPHILS % (AUTO) 1.3 % (0-6); HEMATOCRIT 41.3 % (37.9-51.0); HEMOGLOBIN 13.9 g/dL (13.5-17.0); LYMPHOCYTES % (AUTO) 17.3 % (13-45); MEAN CORPUSCULAR HGB CONC 33.6 g/dL (32.0-36.0); MEAN CORPUSCULAR VOLUME 92 fl (80-97); MONOCYTES % (AUTO) 8.1 % (3-13); PLATELET COUNT 379 10^3/uL (150-450); RED BLOOD COUNT 4.47 10^6/uL (4.35-5.55); RED CELL DISTRIBUTION WIDTH 17.7 % (11.5-14.0); SEGMENTED NEUTROPHILS % (AUTO) 72.6 % (42-78); TOTAL CELLS COUNTED % (AUTO) 100 %; WHITE BLOOD COUNT 5.2 10^3/uL (4.0-10.5)
[2018-06-10 13:08] LABS: ALANINE AMINOTRANSFERASE 35 U/L (21-72); ALKALINE PHOSPHATASE 136 U/L (38-126); ANION GAP 5 (5-19); ASPARTATE AMINO TRANSFERASE 39 U/L (17-59); BILIRUBIN,DIRECT 0.3 mg/dL (0.0-0.4); BILIRUBIN,TOTAL 0.4 mg/dL (0.2-1.3); BLOOD UREA NITROGEN 24 mg/dL (7-20); C-REACTIVE PROTEIN 17.6 mg/L (<10.0); CALCIUM 9.3 mg/dL (8.4-10.2); CARBON DIOXIDE 24 mmol/L (22-30); CHLORIDE 108 mmol/L (98-107); GLUCOSE 97 mg/dL (75-110); SODIUM 136.8 mmol/L (137-145); TOTAL PROTEIN 6.7 g/dL (6.3-8.2)
[2018-06-10 13:41] LABS: ERYTHROCYTE SEDIMENTATION RATE 89 mm/hr (0-20)
== END ==
LOC: WC 11:27
PROVIDERS: ATTEND Nurse Practitioner Family
DX: E11.621 Type 2 diabetes mellitus with foot ulcer (principal); L97.222 Non-pressure chronic ulcer of left calf with fat layer exposed
CPT/HCPCS: 36415; 80053; 83036; 85025; 85652; 86140

== ENCOUNTER → 2018-06-11 | Outpatient (CLI) | payer MEDICARE, MEDICAID, OTHER ==
--- NOTE | 2018-06-13 08:56 | XCELERA REPORT ---
[address] [address] Lower Extremity Venous Evaluation Procedure: A bilateral duplex scan of the lower extremity veins was performed. The evaluation included responses to compression and other maneuvers with patient in the supine and standing positions to assess venous insufficiency. Right Sided Venous Evaluation Deep venous system evaluatiion shows patent veins with no obstruction or significant reflux identified. Sapheno Femoral junction: no reflux. Femoral vein reflux: no reflux. Greater Saphenous vein, Proximal thigh: reflux: 2 second reflux. 3.4 mm diameter. Greater Saphenous vein, Distal thigh: reflux: no reflux. Greater Saphenous vein, Proximal below knee: reflux: no reflux. No significant Perforators identified. Left Sided Venous Evaluation Deep venous system evaluatiion shows patent veins with no obstruction very limited reflux identified. Sapheno Femoral junction: no reflux. Femoral vein reflux: 2 second reflux. Greater Saphenous vein, Proximal thigh: reflux: no reflux. Greater Saphenous vein, Distal thigh: reflux: no reflux. Greater Saphenous vein, Proximal below knee: reflux: no reflux. No significant Perforators identified. Interpretation Summary No duplex evidence of DVT or obstruction in the bilateral lower extremities. Very limited reflux, superficial on right, deep on left identified. Name: JARED HORVATH JR Age: 57 yrs Gender: Male : 1960 Patient Status: Outpatient Patient Location: Study Date: 06/11/2018 09:46 AM Reason For Study: LT CALF ULCER Ordering Physician: DYLAN ABAD Performed By: Jm Turpin : DYLAN ABAD > Jeremy Del Rio
--- NOTE | 2018-06-14 11:42 | XCELERA REPORT ---
[address] [address] Lower Extremity Arterial Evaluation Name: JARED HORVATH JR Age: 57 yrs Gender: Male : 1960 Patient Status: Outpatient Patient Location: Study Date: 06/11/2018 09:11 AM Procedure: A color flow and duplex scan of the lower extremity arteries was performed bilaterally with velocity and waveform anaylsis. Reason For Study: LT CALF ULCER Ordering Physician: DYLAN ABAD Performed By: Jm Turpin Measurements and Calculations Right Left AGRICULTURE SCIENTIST PSV 103.4 132.7 cm/sec Prox PFA PSV -93.0 -77.2 cm/sec Prox SFA PSV 76.0 120.1 cm/sec Mid SFA PSV -85.0 -133.3cm/sec Dist SFA PSV -68.8 -113.8cm/sec Prox Pop A PSV 65.2 92.1 cm/sec Prox DANNA PSV 29.9 cm/sec Dist DANNA PSV 37.0 cm/sec Dist ENGINE EMISSION TECHNICIAN PSV 139.9 cm/sec Van Pedis PSV 15.1 -19.3 cm/sec Right Side Arterial Evaluation Normal velocity and triphasic waveforms noted from the Common Femoral artery to the infrageniculate vessels . Monophasic with very low velocity, trickle flow, in the Dorsalis Pedis arteries. Ankle Brachial index not obtained due to pitting edema. Left Side Arterial Evaluation Normal velocity and triphasic waveforms in the Common Femoral artery. . Biphasic with normal velocity, in the Popliteal. Ankle Brachial index not obtained due to bandaging. Not able to visualize the Posterior Tibial. Monophasic with low velocity in the Anterior tibial/Dorsalis pedis. Interpretation Summary Mild hemodynamically significant lesions in the right lower extremity only, on duplex imaging, at rest. Severe hemodynamically significant lesions in the left lower extremity only, on duplex imaging, at rest. On the right, apparently isolated compromise in the Dorsalis Pedis only. On the left, sequential disease in the Femoral and infrageniculate vessels.. Incompletely evaluated as the posterior tibial and Peroneal vessel were not seen, due to presence of bandaging. : DYLAN ABAD > Jeremy Del Rio
== END ==
LOC: SP 08:48
PROVIDERS: ATTEND Nurse Practitioner Family
DX: L97.222 Non-pressure chronic ulcer of left calf with fat layer exposed (principal)
CPT/HCPCS: 93925; 93970

== ENCOUNTER → 2018-08-27 | Outpatient (CLI) | payer MEDICARE, OTHER, MEDICAID ==
[2018-08-29 07:38] LABS: ABSOLUTE BASOPHILS # (AUTO) 0.1 10^3/uL (0.0-0.2); ABSOLUTE EOSINOPHILS # (AUTO) 0.1 10^3/uL (0.0-0.6); ABSOLUTE LYMPHOCYTES (AUTO) 1.1 10^3/uL (0.5-4.7); ABSOLUTE MONOCYTES (AUTO) 0.6 10^3/uL (0.1-1.4); ABSOLUTE NEUT (AUTO) 4.5 10^3/uL (1.7-8.2); BASOPHILS % (AUTO) 1.3 % (0-2); EOSINOPHILS % (AUTO) 2.3 % (0-6); HEMATOCRIT 42.8 % (37.9-51.0); HEMOGLOBIN 14.3 g/dL (13.5-17.0); LYMPHOCYTES % (AUTO) 16.6 % (13-45); MEAN CORPUSCULAR HEMOGLOBIN 31.1 pg (27.0-33.4); MEAN CORPUSCULAR HGB CONC 33.3 g/dL (32.0-36.0); MEAN CORPUSCULAR VOLUME 93 fl (80-97); MONOCYTES % (AUTO) 9.3 % (3-13); PLATELET COUNT 327 10^3/uL (150-450); RED BLOOD COUNT 4.59 10^6/uL (4.35-5.55); RED CELL DISTRIBUTION WIDTH 16.1 % (11.5-14.0); SEGMENTED NEUTROPHILS % (AUTO) 70.5 % (42-78); TOTAL CELLS COUNTED % (AUTO) 100 %; WHITE BLOOD COUNT 6.4 10^3/uL (4.0-10.5)
[2018-08-29 08:08] LABS: ALANINE AMINOTRANSFERASE 27 U/L (21-72); ALBUMIN 2.5 g/dL (3.5-5.0); ALKALINE PHOSPHATASE 144 U/L (38-126); ASPARTATE AMINO TRANSFERASE 27 U/L (17-59); BILIRUBIN,DIRECT 0.2 mg/dL (0.0-0.4); BILIRUBIN,TOTAL 1.3 mg/dL (0.2-1.3); BLOOD UREA NITROGEN 19 mg/dL (7-20); CALCIUM 8.7 mg/dL (8.4-10.2); CHOLESTEROL 203.83 mg/dL (0-200); GLUCOSE 120 mg/dL (75-110); TOTAL PROTEIN 5.5 g/dL (6.3-8.2); TRIGLYCERIDES 94 mg/dL (<150)
[2018-08-29 08:13] LABS: CARBON DIOXIDE 28 mmol/L (22-30); CHLORIDE 106 mmol/L (98-107); SODIUM 137.8 mmol/L (137-145)
[2018-08-29 08:20] LABS: DIRECT LDL 96 mg/dL (<100)
[2018-08-29 08:24] LABS: ANION GAP 4 (5-19)
[2018-08-30 12:36] LABS: CREATININE URINE 66.1 mg/dL (Not Estab.)
[2018-08-30 19:09] LABS: MICROALBUMIN URINE 6170.1 ug/mL (Not Estab.)
== END ==
LOC: OD 08:44
PROVIDERS: ATTEND Family Medicine Geriatric Medicine
DX: E11.9 Type 2 diabetes mellitus without complications (principal); I10 Essential (primary) hypertension; I73.9 Peripheral vascular disease, unspecified; E66.9 Obesity, unspecified; Z79.899 Other long term (current) drug therapy
CPT/HCPCS: 36415; 80053; 80061; 82043; 82570; 83036; 84443; 85025

== ENCOUNTER → 2018-09-17 | Outpatient (CLI) | payer MEDICARE, MEDICAID, OTHER ==
--- NOTE | 2018-09-17 17:08 | RADIOLOGY REPORT (SQ) ---
EXAM DESCRIPTION: CHEST 2 VIEWS COMPLETED DATE/TIME: 09/17/2018 4:58 pm REASON FOR STUDY: J90 PLEURAL EFFUSION, NOT ELSEWHERE CLASSIFIED COMPARISON: None. EXAM PARAMETERS: NUMBER OF VIEWS: two views TECHNIQUE: Digital Frontal and Lateral radiographic views of the chest acquired. RADIATION DOSE: NA LIMITATIONS: none FINDINGS: LUNGS AND PLEURA: There is opacification both lung bases with small bilateral pleural effu sions. There is considerable retrocardiac opacification on the left. MEDIASTINUM AND HILAR STRUCTURES: No masses or contour abnormalities. HEART AND VASCULAR STRUCTURES: Cardiomegaly. Cannot exclude mild pulmonary edema. BONES: No acute findings. HARDWARE: None in the chest. OTHER: No other significant finding. IMPRESSION: Cardiomegaly. Cannot exclude mild pulmonary edema. Small pleural effusions. Left lowe r lobe airspace disease, pneumonia versus atelectasis. TECHNICAL DOCUMENTATION: JOB ID: [id number] [employer]- All Rights Reserved Reading location - IP/workstation name: [email or web address]
== END ==
LOC: RAD 16:45
PROVIDERS: ATTEND Family Medicine Geriatric Medicine
DX: J90 Pleural effusion, not elsewhere classified (principal); I51.7 Cardiomegaly
CPT/HCPCS: 71046

== ENCOUNTER → 2018-10-06 | Outpatient (CLI) | payer MEDICARE, MEDICAID, OTHER ==
--- NOTE | 2018-10-06 12:35 | RADIOLOGY REPORT (SQ) ---
EXAM DESCRIPTION: DUPLEX ART/ZACKERY FLOW COMPLETE COMPLETED DATE/TIME: 10/06/2018 8:34 am REASON FOR STUDY: CKS STAGE 3 N18.3 CHRONIC KIDNEY DISEASE, STAGE 3 (MODERATE) COMPARISON: None. TECHNIQUE: Realtime and static grayscale images acquired. Selected color Doppler, velocities and spe ctral images recorded. LIMITATIONS: Exam limited due to patient unable to hold breath. FINDINGS: RIGHT KIDNEY: RENAL ARTERY VELOCITIES: 49.4 cm/sec. Segmental artery velocity 42.9 cm/sec. RENAL VEIN: Color doppler flow present, patent. VELOCITY RATIO: 0.55. Normal waveforms. KIDNEY: Normal size. No significant pathology. LEFT KIDNEY: RENAL ARTERY VELOCITIES: 60.6 cm/sec. Segmental artery velocity 17.5 cm/sec. RENAL VEIN: Color doppler flow present, patent. VELOCITY RATIO: 0.67. Normal waveforms. KIDNEY: Normal size. No significant pathology. BLADDER: Normal. OTHER: No other significant finding. IMPRESSION: NO DOPPLER EVIDENCE OF HEMODYNAMICALLY SIGNIFICANT RENAL ARTERY STENOSIS. COMMENT: NORMAL RENAL ARTERY/AORTA VELOCITY RATIO IS LESS THAN OR EQUAL TO 3.5. TECHNICAL DOCUMENTATION: JOB ID: [id number] [employer]- All Rights Reserved Reading location - IP/workstation name: [email or web address]
== END ==
LOC: RAD 07:17
PROVIDERS: ATTEND Internal Medicine Nephrology
DX: N18.3 Chronic kidney disease, stage 3 (moderate) (principal)
CPT/HCPCS: 93975

== ENCOUNTER → 2018-11-17 | Outpatient (CLI) | payer MEDICARE, MEDICAID, OTHER ==
[2018-11-17 12:22] LABS: ALBUMIN 2.4 g/dL (3.5-5.0); ALKALINE PHOSPHATASE 127 U/L (38-126); ASPARTATE AMINO TRANSFERASE 25 U/L (17-59); BILIRUBIN,DIRECT 0.1 mg/dL (0.0-0.4); CHOLESTEROL 273.28 mg/dL (0-200); TOTAL PROTEIN 5.4 g/dL (6.3-8.2); TRIGLYCERIDES 97 mg/dL (<150)
[2018-11-17 12:33] LABS: DIRECT LDL 113 mg/dL (<100)
== END ==
LOC: LAB 11:42
PROVIDERS: ATTEND Family Medicine Geriatric Medicine
DX: I50.22 Chronic systolic (congestive) heart failure (principal); R94.5 Abnormal results of liver function studies; Z79.899 Other long term (current) drug therapy
CPT/HCPCS: 36415; 80061; 80076

== ENCOUNTER 2018-12-11 17:15 | Inpatient (IN) | payer MEDICARE, MEDICAID, OTHER ==
--- NOTE | 2018-12-11 18:06 | ER Document Report ---
ED Medical Screen (RME) - General Stated Complaint: VOMITING BLOOD Time Seen by Provider: 12/11/18 18:02 Primary Care Provider: PEGGY TORRES MD [Primary Care Provider] - Follow up as needed Mode of Arrival: Ambulatory Information source: Patient Notes: 58-year-old male presented to ED for bloody emesis since around noon. He states he has been throwing up bright red blood with no clots and he has been throwing up into these little buckets that he has. There is a moderate amount of blood in the bucket that he has right now. He states this is Dr. hodges. Patient is alert oriented respirations regular and unlabored. He does have a history of CHF. He does have gross pedal edema bilaterally. He states he has been having a cough no fever. I have greeted and performed a rapid initial assessment of this patient. A comprehensive ED assessment and evaluation of the patient, analysis of test results and completion of medical decision making process will be conducted by an additional ED providers. TRAVEL OUTSIDE OF THE [place] IN LAST 30 DAYS: No - Related Data Allergies/Adverse Reactions: No Known Allergies Allergy (Verified 06/10/18 17:31) Past Medical History - Past Medical History Cardiac Medical History: Reports: Hx Congestive Heart Failure, Hx Hypercholesterolemia, Hx Hypertension Endocrine Medical History: Reports: Hx Diabetes Mellitus Type 2 Renal/ Medical History: Reports: Hx End Stage Renal Disease. Denies: Hx Peritoneal Dialysis Musculoskeltal Medical History: Reports Hx Arthritis, Reports Hx Musculoskeletal Deformity, Reports Hx Musculoskeletal Trauma Traumatic Medical History: Reports: Hx Fractures Past Surgical History: Reports: Hx Abdominal Surgery, Hx Orthopedic Surgery Physical Exam - Vital signs Vitals: Temp Pulse Resp BP Pulse Ox 98.2 F 113 H 16 185/96 H 95 12/11/18 17:21 12/11/18 17:21 12/11/18 17:21 12/11/18 17:21 12/11/18 17:21 Course - Vital Signs Vital signs: Temp Pulse Resp BP Pulse Ox 98.2 F 113 H 16 185/96 H 95 12/11/18 17:21 12/11/18 17:21 12/11/18 17:21 12/11/18 17:21 12/11/18 17:21 Doctor's Discharge - Discharge Referrals: PEGGY TORRES MD [Primary Care Provider] - Follow up as needed
[2018-12-11] MEDS ORDERED: FUROSEMIDE INJ/PF 40 MG/4 ML SDV IV ONE (18:37)
[2018-12-11] MEDS ORDERED: NITROGLYCERIN 2% OINTMENT 1 GM PACKET TP ONE (18:37)
[2018-12-11 18:39] LABS: HEMATOCRIT 41.9 % (37.9-51.0); HEMOGLOBIN 13.9 g/dL (13.5-17.0); MEAN CORPUSCULAR HEMOGLOBIN 29.8 pg (27.0-33.4); MEAN CORPUSCULAR HGB CONC 33.2 g/dL (32.0-36.0); MEAN CORPUSCULAR VOLUME 90 fl (80-97); PLATELET COUNT 368 10^3/uL (150-450); RED BLOOD COUNT 4.67 10^6/uL (4.35-5.55); RED CELL DISTRIBUTION WIDTH 16.7 % (11.5-14.0); WHITE BLOOD COUNT 9.6 10^3/uL (4.0-10.5)
[2018-12-11 18:43] LABS: ALBUMIN 2.4 g/dL (3.5-5.0); ALKALINE PHOSPHATASE 124 U/L (38-126); ASPARTATE AMINO TRANSFERASE 30 U/L (17-59); BILIRUBIN,DIRECT 0.1 mg/dL (0.0-0.4); BILIRUBIN,TOTAL 1.4 mg/dL (0.2-1.3); BLOOD UREA NITROGEN 23 mg/dL (7-20); CALCIUM 8.3 mg/dL (8.4-10.2); CARBON DIOXIDE 28 mmol/L (22-30); GLUCOSE 119 mg/dL (75-110); POTASSIUM 4.1 mmol/L (3.6-5.0); TOTAL PROTEIN 5.7 g/dL (6.3-8.2)
[2018-12-11 18:48] LABS: CHLORIDE 101 mmol/L (98-107)
[2018-12-11 18:49] LABS: INTERNATIONAL RATION (INR) 0.98
[2018-12-11 18:50] LABS: ANION GAP 4 (5-19); PARTIAL THROMBOPLASTIN TIME 30.6 SEC (23.5-35.8)
[2018-12-11 19:05] LABS: ABSOLUTE LYMPHOCYTES# (MANUAL) 0.7 10^3/uL (0.5-4.7); ABSOLUTE MONOCYTES # (MANUAL) 0.7 10^3/uL (0.1-1.4); ANISOCYTOSIS 1+; BAND NEUTROPHILS % (MANUAL) 4 % (3-5); BASOPHILS % (MANUAL) 0 % (0-2); EOSINOPHILS % (MANUAL) 0 % (0-6); LYMPHOCYTES % (MANUAL) 7 % (13-45); MONOCYTES % (MANUAL) 7 % (3-13); PLATELET CLUMPS PRESENT; PLATELET COMMENT ADEQUATE; SEGMENTED NEUTROPHILS % (MAN) 82 % (42-78); TOTAL CELLS COUNTED 100
--- NOTE | 2018-12-11 19:08 | RADIOLOGY REPORT (SQ) ---
EXAM DESCRIPTION: CHEST SINGLE VIEW COMPLETED DATE/TIME: 12/11/2018 6:40 pm REASON FOR STUDY: sob COMPARISON: Chest radiographs 09/17/2018 EXAM PARAMETERS: NUMBER OF VIEWS: One view. TECHNIQUE: Single frontal radiographic view of the chest acquired. RADIATION DOSE: NA LIMITATIONS: None. FINDINGS: LUNGS AND PLEURA: Bibasilar left greater than right airspace opacities and suspected bilat eral pleural effusions. MEDIASTINUM AND HILAR STRUCTURES: No masses. Contour normal. HEART AND VASCULAR STRUCTURES: Heart normal in size. Normal vasculature. BONES: No acute findings. HARDWARE: None in the chest. OTHER: No other significant finding. IMPRESSION: Bibasilar airspace opacities and suspected bilateral pleural effusions. TECHNICAL DOCUMENTATION: JOB ID: [id number] [employer]- All Rights Reserved Reading location - IP/workstation name: [email or web address]
[2018-12-11 19:24] LABS: TROPONIN I 0.053 ng/mL
[2018-12-11 19:27] LABS: APPEARANCE,URINE CLEAR; BILIRUBIN,URINE NEGATIVE (NEGATIVE); COLOR,URINE YELLOW; GLUCOSE, URINE 50 mg/dL (NEGATIVE); KETONES,URINE NEGATIVE (NEGATIVE); LEUKOCYTE ESTERASE,URINE NEGATIVE (NEGATIVE); NITRITE,URINE NEGATIVE (NEGATIVE); PROTEIN,URINE >=500 mg/dL (NEGATIVE); URINE SPECIFIC GRAVITY 1.008; UROBILINOGEN,URINE NEGATIVE mg/dL (<2.0)
--- NOTE | 2018-12-11 23:57 | ER Document Report ---
ED General - General Chief Complaint: Blood Pressure Problem Stated Complaint: VOMITING BLOOD Time Seen by Provider: 12/11/18 18:02 Primary Care Provider: PEGGY TORRES MD [ACTIVE STAFF] - Follow up as needed Mode of Arrival: Ambulatory Information source: Patient TRAVEL OUTSIDE OF THE [place] IN LAST 30 DAYS: No - HPI Patient complains to provider of: hemoptysis, leg swelling Onset/Duration: Gradual Associated symptoms: denies: Chest pain Exacerbated by: Other - Exertion Similar symptoms previously: Yes Notes: This is a 58-year-old male with a history of CHF presenting complaining of cough x1 week, worsening dyspnea on exertion and orthopnea. Patient states he has had a cough that has gotten progressively worse over this past week and he has noticed that his sputum, while initially clear, has become blood-tinged to the more that he has had a cough. Patient noticed a slight pink tinge to his sputum earlier today, then some darker brownish sputum, followed by transit episodes of bright red sputum. Currently patient is not actively coughing up blood. Patient speaks in full sentences and is able to relate HPI. Patient denies chest pain. Patient states he does have shortness of breath with exertion and he has been having to sleep upright in a recliner for "a while." - Related Data Allergies/Adverse Reactions: No Known Allergies Allergy (Verified 06/10/18 17:31) Past Medical History - General Information source: Patient - Social History Smoking Status: Never Smoker Family History: Reviewed & Not Pertinent Patient has suicidal ideation: No Patient has homicidal ideation: No - Past Medical History Cardiac Medical History: Reports: Hx Congestive Heart Failure, Hx Hypercholesterolemia, Hx Hypertension Endocrine Medical History: Reports: Hx Diabetes Mellitus Type 2 Renal/ Medical History: Reports: Hx End Stage Renal Disease. Denies: Hx Peritoneal Dialysis Musculoskeletal Medical History: Reports Hx Arthritis, Reports Hx Musculosk eletal Deformity, Reports Hx Musculoskeletal Trauma Traumatic Medical History: Reports: Hx Fractures Past Surgical History: Reports: Hx Abdominal Surgery, Hx Orthopedic Surgery Review of Systems - Review of Systems Constitutional: See HPI EENT: No symptoms reported Cardiovascular: denies: Chest pain, Palpitations Respiratory: See HPI, Cough, Hemoptysis, Short of breath, Sputum Gastrointestinal: No symptoms reported Genitourinary: No symptoms reported Male Genitourinary: No symptoms reported Musculoskeletal: Leg swelling Skin: No symptoms reported Hematologic/Lymphatic: No symptoms reported Neurological/Psychological: No symptoms reported -: Yes All other systems reviewed and negative Physical Exam - Vital signs Vitals: Temp Pulse Resp BP Pulse Ox 98.2 F 113 H 16 185/96 H 95 12/11/18 17:21 12/11/18 17:21 12/11/18 17:21 12/11/18 17:21 12/11/18 17:21 - General General appearance: Alert In distress: None - HEENT Head: Normocephalic, Atraumatic Eyes: Normal Conjunctiva: Normal Cornea: Normal Mouth/Lips: Normal Mucous membranes: Normal - Respiratory Respiratory status: No respiratory distress Chest status: Nontender Breath sounds: Rales Chest palpation: Normal - Cardiovascular Rhythm: Regular Heart sounds: Normal auscultation Murmur: No - Abdominal Inspection: Normal Distension: No distension Bowel sounds: Normal Tenderness: Nontender - Extremities General lower extremity: Edema - 2+ pitting edema bilateral lower extremities - Neurological Neuro grossly intact: Yes Cognition: Normal Orientation: AAOx4 [place] Coma Scale Eye Opening: Spontaneous [place] Coma Scale Verbal: Oriented [place] Coma Scale Motor: Obeys Commands [place] Coma Scale Total: 15 Speech: Normal Sensory: Normal - Psychological Associated symptoms: Normal affect, Normal mood - Skin Skin Temperature: Warm Skin Moisture: Dry Skin Color: Normal Irregularity with: Weeping - Patient has some weeping from his left lower extremity. Both lower extremities are significant for market edema and evidence of chronic venous stasis Course - Re-evaluation Re-evalutation: 12/12/18 00:01 At 00 01 hours on 12/12/2018, patient is in no acute distress. - Vital Signs Vital signs: Temp Pulse Resp BP Pulse Ox 98.2 F 113 H 22 H 174/99 H 96 12/11/18 17:21 12/11/18 17:21 12/11/18 20:01 12/11/18 20:01 12/11/18 20:01 12/12/18 00:01 Vital signs reviewed by this MD. Heart rate is 94, SPO2 is 98% on room air, respirations 23, blood pressure 166/103. - Laboratory Result Diagrams: 12/11/18 17:54 12/11/18 17:54 Laboratory results interpreted by me: 12/11/18 12/11/18 12/11/18 17:54 17:54 17:54 RDW 16.7 H Seg Neuts % (Manual) 82 H Lymphocytes % (Manual) 7 L Abs Neuts (Manual) 8.3 H Sodium 133.0 L Anion Gap 4 L BUN 23 H Creatinine 2.44 H Est GFR ( Amer) 33 L Est GFR (MDRD) Non-Af 27 L Glucose 119 H Calcium 8.3 L Total Bilirubin 1.4 H NT-Pro-B Natriuret Pep 43604 H Total Protein 5.7 L Albumin 2.4 L Urine Protein Urine Glucose (UA) Urine Blood 12/11/18 19:06 RDW Seg Neuts % (Manual) Lymphocytes % (Manual) Abs Neuts (Manual) Sodium Anion Gap BUN Creatinine Est GFR ( Amer) Est GFR (MDRD) Non-Af Glucose Calcium Total Bilirubin NT-Pro-B Natriuret Pep Total Protein Albumin Urine Protein >=500 H Urine Glucose (UA) 50 H Urine Blood SMALL H 12/12/18 00:02 All relevant laboratory results reviewed by this MD. - Diagnostic Test Radiology reviewed: Reports reviewed - EKG Interpretation by Me Additional EKG results interpreted by me: 12/12/18 00:16 EKG performed at 1755 hrs. on 12/11/2018. EKG interpreted by this MD. Findings: Sinus tachycardia with a heart rate of 107. Narrow QRS complex, non specific ST segments. Findings are similar to EKG done on 06/10/2018. No occult evidence of ST elevation CT at this time. - Consults dr damon Time consulted: 00:36 Consulted provider: will see as inpatient Discharge - Discharge Clinical Impression: Acute exacerbation of CHF (congestive heart failure) Condition: Good Disposition: ADMITTED INPATIENT Admitting Provider: Kailash (Hospitalist) Unit Admitted: IMCU Referrals: PEGGY TORRES MD [ACTIVE STAFF] - Follow up as needed
[2018-12-12] MEDS ORDERED: FUROSEMIDE INJ/PF 20 MG/2 ML SDV IV ONE (00:34)
[2018-12-12] MEDS ORDERED: MORPHINE SULFATE 10 MG/ML INJ IV ONE (02:45)
[2018-12-12] MEDS ORDERED: TEMAZEPAM 15 MG CAPSULE PO PRN (04:12)
[2018-12-12] MEDS ORDERED: MAGNESIUM HYDROXIDE SUSP 30 ML UDCUP PO PRN (04:12)
[2018-12-12] MEDS ORDERED: ONDANSETRON HCL INJ/PF 4 MG/2 ML SDV IV PRN (04:12)
[2018-12-12] MEDS ORDERED: MAG HYDROX/AL HYDROX/SIMETH SUSP 30 ML UDCUP PO PRN (04:12)
[2018-12-12] MEDS ORDERED: ACETAMINOPHEN 325 MG TABLET PO PRN (04:17)
[2018-12-12] MEDS ORDERED: MORPHINE SULFATE 10 MG/ML INJ IV PRN (04:17)
[2018-12-12] MEDS ORDERED: LEVALBUTEROL HCL NEB 0.63 MG/3 ML AMPUL NEB PRN (04:24)
--- NOTE | 2018-12-12 05:16 | PDOC H&P ---
History of Present Illness Admission Date/PCP: 12/12/18 00:54 ITALIA BOO MD Patient complains of: Dyspnea History of Present Illness: JARED HORVATH JR is a 58 year old male presented to the emergency room with a 6- month history of dyspnea. He admits that over the last 6 months he has exp erienced gradually worsening dyspnea accompanied by progressively worsening peripheral edema and associated with symptoms of progressively worsening orthopnea. He denies other associated or accompanying signs and symptoms. His dyspnea has been worsened by exertion and though generally relieved by using oxygen at home recently he has not been able to get relief with his oxygen or with his nebulizers that he uses for his COPD. He finally reached the point on the day prior to admission where his dyspnea abruptly became severe and he began expectorating pinkish froth progressing gradually to a reddish froth expectorant. He admits prior similar episodes associated with heart failure and COPD though none this severe. He denies identification of any additional aggravating or ameliorating factors for his dyspnea. In the emergency room he was found to have acute pulmonary edema with an acute hypertensive crisis. He was treated with oxygen, nitroglycerin, morphine and Lasix. He responded well to initial therapy. His chest x-ray showed evidence of acute pulmonary edema and this was confirmed on CT of the chest. Additionally his BNP was 10,300. Patient was subsequently admitted to the hospital for further evaluation and treatment. Past Medical History Cardiac Medical History: Reports: Congestive Heart Failure, Hyperlipidema, Hypertension Pulmonary Medical History: Reports: Chronic Obstructive Pulmonary Disease (C OPD), Pneumonia, Respiratory Failure EENT Medical History: Denies: Cataracts, Ears Neurological Medical History: Denies: Hemorrhagic CVA, Ischemic CVA, Seizures Endocrine Medical History: Reports: Diabetes Mellitus Type 2, Obesity Denies: Diabetes Mellitus Type 1, Hyperthyroidism, Hypothyroidism Renal/ Medical History: Reports: Chronic Kidney Disease Denies: Nephrolithiasis Malignancy Medical History: Reports: None GI Medical History: Denies: Cirrhosis, Crohn's Disease, Hepatitis, Ulcerative Colitis Musculoskeltal Medical History: Reports: Arthritis Denies: Gout Skin Medical History: Denies: Eczema, Psoriasis Psychiatric Medical History: Reports: Alcohol Dependency Denies: Substance Abuse, Tobacco Dependency Traumatic Medical History: Reports: None Hematology: Denies: Anemia, Bleeding Tendencies Infectious Medical History: Reports: None Past Surgical History Past Surgical History: Reports: Orthopedic Surgery Social History Information Source: Patient Lives with: Spouse/Significant other Smoking Status: Never Smoker Frequency of Alcohol Use: Heavy Hx Recreational Drug Use: No Drugs: None Hx Prescription Drug Abuse: No - Advance Directive Resuscitation Status: Full Code Surrogate healthcare decision maker:: Phuong Silvestre Family History Family History: CAD, Hypertension, Malignancy. denies: DM Parental Family History Reviewed: Yes Children Family History Reviewed: No Sibling(s) Family History Reviewed.: Yes Medication/Allergy Home Medications: Simvastatin [Zocor 20 mg Tablet] 20 mg PO QPM 03/10/18 Aspirin [Ecotrin 325 mg EC Tablet] 325 mg PO DAILY #90 tabec 03/16/18 Carvedilol [Coreg 12.5 mg Tablet] 25 mg PO Q12 #60 tablet 03/16/18 Furosemide [Lasix 40 mg Tablet] 40 mg PO BID #60 tablet 03/16/18 Ipratropium/Albuterol Sulfate [Duoneb 3 ml Ampul] 3 ml NEB [id number] PRN #120 vial.neb 03/16/18 Isosorbide Mononitrate [Imdur 30 mg Tablet.er] 30 mg PO DAILY #30 tab.er.24h 03/16/18 Levofloxacin [Levaquin 750 mg Tablet] 750 mg PO QPM #4 tablet 03/16/18 Losartan Potassium [Cozaar 50 mg Tablet] 50 mg PO Q12 #60 tablet 03/16/18 Cephalexin Monohydrate [Keflex 500 mg Capsule] 500 mg PO Q6H 10 Days capsule 05/09/18 Allergies/Adverse Reactions: No Known Allergies Allergy (Verified 06/10/18 17:31) Review of Systems Constitutional: ABSENT: chills, fever(s) Eyes: ABSENT: visual disturbances, other - Eye pain Ears: ABSENT: hearing changes, other - Ear pain Nose, Mouth, and Throat: ABSENT: mouth pain, sore throat Cardiovascular: PRESENT: dyspnea on exertion, edema, orthropnea. ABSENT: chest pain, palpitations Respiratory: PRESENT: as per HPI, cough, dyspnea, hemoptysis, sputum Gastrointestinal: ABSENT: abdominal pain, constipation, diarrhea, nausea, vomiting Genitourinary: ABSENT: dysuria, hematuria Musculoskeletal: ABSENT: back pain, joint swelling, muscle weakness Integumentary: ABSENT: pruritus, rash Neurological: ABSENT: confusion, convulsions, focal weakness, memory loss, syncope Psychiatric: ABSENT: anxiety, depression Endocrine: ABSENT: cold intolerance, heat intolerance Hematologic/Lymphatic: ABSENT: easy bleeding, easy bruising Allergic/Immunologic: ABSENT: seasonal rhinorrhea Physical Exam Vital Signs: Temp Pulse Resp BP Pulse Ox 97.9 F 91 20 178/104 H 100 12/12/18 03:49 12/12/18 03:49 12/12/18 03:49 12/12/18 03:49 12/12/18 03:49 Intake & Output 12/10/18 12/11/18 12/12/18 23:59 23:59 23:59 Output Total 200 Balance -200 Weight 125.191 kg 119.1 kg General appearance: PRESENT: no acute distress, cooperative, obese Head exam: PRESENT: atraumatic, normocephalic Eye exam: PRESENT: conjunctiva pink. ABSENT: conjunctival injection, scleral icterus Ear exam: PRESENT: normal external ear exam. ABSENT: bleeding, drainage Mouth exam: PRESENT: dry mucosa, neck supple Neck exam: PRESENT: JVD - At 60 degrees of head of bed elevation bilaterally. ABSENT: thyromegaly, tracheal deviation Respiratory exam: PRESENT: accessory muscle use, decreased breath sounds - [place] th sounds are significantly decreased in the bilateral lower lung gold, prolonged expiratory phas - Minimally prolonged expiratory phase, rales - Fine rales prominent throughout the lower one half of both lung gold, symmetrical, tachypnea, wheezes - Minimal expiratory wheezes Cardiovascular exam: PRESENT: gallop - S3 gallop rhythm, RRR, tachycardia. ABSENT: clicks, rubs Pulses: PRESENT: normal radial pulses, +1 pedal pulses bilateral Vascular exam: PRESENT: normal capillary refill. ABSENT: pallor GI/Abdominal exam: PRESENT: normal bowel sounds, soft. ABSENT: tenderness Rectal exam: PRESENT: deferred Extremities exam: PRESENT: pedal edema, +2 edema - 2+ hard edema of the bilateral lower extremities to the bilateral flanks and 2+ pitting edema of the bilateral upper extremities to the elbow Musculoskeletal exam: PRESENT: ambulatory. ABSENT: deformity, dislocation Neurological exam: PRESENT: alert, oriented to person, oriented to place, oriented to time, oriented to situation, CN II-XII grossly intact. ABSENT: motor sensory deficit Psychiatric exam: PRESENT: appropriate affect, normal mood Skin exam: PRESENT: dry, intact, warm. ABSENT: jaundice, rash, urticaria Results Laboratory Results: 12/11/18 17:54 12/11/18 17:54 12/11/18 12/11/18 12/11/18 17:54 17:54 17:54 WBC 9.6 RBC 4.67 Hgb 13.9 Hct 41.9 MCV 90 MCH 29.8 MCHC 33.2 RDW 16.7 H Plt Count 368 Seg Neutrophils % Not Reportable Sodium 133.0 L Potassium 4.1 Chloride 101 Carbon Dioxide 28 Anion Gap 4 L BUN 23 H Creatinine 2.44 H Est GFR ( Amer) 33 L Glucose 119 H Calcium 8.3 L Total Bilirubin 1.4 H AST 30 Alkaline Phosphatase 124 Total Protein 5.7 L Albumin 2.4 L Urine Color Urine Appearance Urine pH Ur Specific [place] Urine Protein Urine Glucose (UA) Urine Ketones Urine Blood Urine Nitrite Ur Leukocyte Esterase Urine WBC (Auto) Urine RBC (Auto) Blood Type O POSITIVE Antibody Screen NEGATIVE 12/11/18 19:06 WBC RBC Hgb Hct MCV MCH MCHC RDW Plt Count Seg Neutrophils % Sodium Potassium Chloride Carbon Dioxide Anion Gap BUN Creatinine Est GFR ( Amer) Glucose Calcium Total Bilirubin AST Alkaline Phosphatase Total Protein Albumin Urine Color YELLOW Urine Appearance CLEAR Urine pH 7.0 Ur Specific [place] 1.008 Urine Protein >=500 H Urine Glucose (UA) 50 H Urine Ketones NEGATIVE Urine Blood SMALL H Urine Nitrite NEGATIVE Ur Leukocyte Esterase NEGATIVE Urine WBC (Auto) 1 Urine RBC (Auto) 2 Blood Type Antibody Screen 12/11/18 17:54 Troponin I 0.053 NT-Pro-B Natriuret Pep 05329 H Impressions: Chest X-Ray 12/11/18 00:00 IMPRESSION: Bibasilar airspace opacities and suspected bilateral pleural effusions. Assessment and Plan - Diagnosis (1) Acute pulmonary edema with congestive heart failure Is this a current diagnosis for this admission?: Yes Plan: Patient was noted in the emergency room to have acute pulmonary edema and he has already been treated with nitroglycerin (Nitrol 2% ointment 1 g topically every 6 hours) as well as IV morphine and IV Lasix. He will be continued on Nitrol ointment and intravenous morphine 2 mg IV q. one hour as needed severe dyspnea and will be treated as noted above with a furosemide infusion. His pulmonary edema has resolved at this point but will be monitored closely, using clinical evaluation, throughout his hospital course. (2) Anasarca Is this a current diagnosis for this admission?: Yes Plan: Patient be started on a Lasix infusion at 20 mg/h. The infusion will be titrated as appropriate to achieve adequate diuresis to resolve his anasarca over a period of 4 to 5 days. He would then be placed on Demadex 50 mg daily. Patient's metabolic profile and magnesium levels were monitored on a regular basis throughout his hospital course. He will be on telemetry monitoring. (3) Acute on chronic diastolic congestive heart failure Is this a current diagnosis for this admission?: Yes Plan: Patient be continued on his usual congestive heart failure medications with the additional therapy of a furosemide infusion and adjustments in dosage of his medications as required. Daily CBCs, metabolic profiles and and magnesium levels will be followed. (4) Chronic kidney disease, stage III (moderate) Is this a current diagnosis for this admission?: Yes Plan: Patient will be treated with therapy for his congestive heart failure with an aggressive furosemide infusion and his renal functions will be monitored closely throughout his treatment course. (5) Type 2 diabetes mellitus Qualifiers: Diabetes mellitus long term care pharmacist insulin use: without long term care pharmacist use Diabetes mellitus complication status: with kidney complications Diabetes mellitus complication detail: with chronic kidney disease Chronic kidney disease stage: stage 3 (moderate) Qualified Code(s): E11.22 - Type 2 diabetes mellitus with diabetic chronic kidney disease; N18.3 - Chronic kidney disease, stage 3 (moderate) Is this a current diagnosis for this admission?: Yes Plan: Patient's diabetes appears to be well controlled with diet alone therefore he will be continued on diabetic diet throughout his hospital course. Regular Accu-Cheks will not be instituted however the patient's blood sugar can be checked randomly if any problems should develop. (6) Hypertension Qualifiers: Hypertension type: essential hypertension Qualified Code(s): I10 - Essential (primary) hypertension Is this a current diagnosis for this admission?: Yes Plan: Patient will be continued on his current heart failure/antihypertensive regimen with adjustments made as required for achieving adequate control. His blood pressure be checked on a frequent basis throughout his hospital course with routine vital signs. - Time Time Spent with patient: 25-34 minutes Medications reviewed and adjusted accordingly: Yes Anticipated discharge: Home - Inpatient Certification Based on my medical assessment, after consideration of the patient's comorbiditi es, presenting symptoms, or acuity I expect that the services needed warrant INPATIENT care.: Yes I certify that my determination is in accordance with my understanding of [facility]'s requirements for reasonable and necessary INPATIENT services [42 CFR 412.3e].: Yes Medical Necessity: Failure to Improve With Outpatient Therapy, Significant Comorbidiites Make Outpatient Treatment Too Risky, Need Close Monitoring Due to Risk of Patient Decompensation, Need For Continuous Telemetry Monitoring, Risk of Complication if Not Cared For in Hospital, Risk of Diagnosis Which Will Require Inpatient Eval/Care/Monitoring
[2018-12-12 06:02] LABS: CHOLESTEROL 276.13 mg/dL (0-200); TRIGLYCERIDES 69 mg/dL (<150)
[2018-12-12 06:13] LABS: CREATINE KINASE MB 7.13 ng/mL (<4.55); DIRECT LDL 62 mg/dL (<100); TROPONIN I 0.067 ng/mL
[2018-12-12 06:19] LABS: FREE T3 1.49 pg/mL (2.77-5.27); FREE T4 (FREE THYROXINE) 0.78 ng/dL (0.78-2.19)
[2018-12-12] MEDS: NITROGLYCERIN 2% OINTMENT 1 GM PACKET TP SCH ×3 (06:20→18:03)
[2018-12-12] MEDS: HEPARIN SOD (PORCINE) 5,000 UNIT/ML 1 ML VIAL SUBCUT SCH ×3 (06:20→21:32)
[2018-12-12] MEDS: PANTOPRAZOLE SODIUM 40 MG TABLET.DR PO SCH ×2 (06:20→18:03)
[2018-12-12 06:33] LABS: THYROID STIMULATING HORMONE 1.15 uIU/mL (0.47-4.68)
--- NOTE | 2018-12-12 07:19 | EKG REPORT ---
SEVERITY:- ABNORMAL ECG - SINUS TACHYCARDIA PROBABLE LEFT ATRIAL ABNORMALITY LVH WITH SECONDARY REPOLARIZATION ABNORMALITY BORDERLINE PROLONGED QT INTERVAL : Confirmed by: Anthony Wolfe 12-Dec-2018 07:18:36
[2018-12-12] MEDS: BUDESONIDE NEB 0.5 MG/2 ML AMPUL NEB SCH ×2 (08:21→20:33)
[2018-12-12] MEDS: IPRATROPIUM BROMIDE 0.02% NEB 0.5 MG/2.5 ML AMPUL NEB SCH ×2 (08:21→16:17)
[2018-12-12] MEDS: LEVALBUTEROL HCL NEB 1.25 MG/3 ML AMPUL NEB SCH ×2 (08:21→16:17)
[2018-12-12] MEDS: NORMAL SALINE 250 ML with FUROSEMIDE 250 MG IV PRN ×4 (09:22→21:32)
[2018-12-12] MEDS: CARVEDILOL 12.5 MG TABLET PO SCH ×2 (09:24→21:31)
[2018-12-12] MEDS: LOSARTAN POTASSIUM 50 MG TABLET PO SCH ×2 (09:24→21:31)
[2018-12-12] MEDS: DOCUSATE SODIUM 100 MG CAPSULE PO SCH ×2 (09:25→18:03)
--- NOTE | 2018-12-12 10:07 | Progress Note ---
Provider Note Provider Note: 12/12/2018-patient admitted early a.m. I have evaluated patient reviewed labs no changes plan of care at this time. We will continue to follow
[2018-12-12 11:31] LABS: CREATINE KINASE MB 7.01 ng/mL (<4.55); TROPONIN I 0.056 ng/mL
[2018-12-12 17:33] LABS: CREATINE KINASE MB 7.83 ng/mL (<4.55); TROPONIN I 0.049 ng/mL
[2018-12-13] MEDS: NITROGLYCERIN 2% OINTMENT 1 GM PACKET TP SCH ×4 (01:00→17:07)
[2018-12-13] MEDS: LEVALBUTEROL HCL NEB 1.25 MG/3 ML AMPUL NEB SCH ×4 (01:47→20:05)
[2018-12-13] MEDS: IPRATROPIUM BROMIDE 0.02% NEB 0.5 MG/2.5 ML AMPUL NEB SCH ×4 (01:47→20:04)
[2018-12-13] MEDS: NORMAL SALINE 250 ML with FUROSEMIDE 250 MG IV PRN ×2 (05:41)
[2018-12-13] MEDS: PANTOPRAZOLE SODIUM 40 MG TABLET.DR PO SCH ×2 (05:41→17:07)
[2018-12-13] MEDS: HEPARIN SOD (PORCINE) 5,000 UNIT/ML 1 ML VIAL SUBCUT SCH ×3 (05:41→21:35)
[2018-12-13 05:55] LABS: HEMATOCRIT 33.7 % (37.9-51.0); MEAN CORPUSCULAR HEMOGLOBIN 29.1 pg (27.0-33.4); MEAN CORPUSCULAR HGB CONC 32.9 g/dL (32.0-36.0); MEAN CORPUSCULAR VOLUME 88 fl (80-97); PLATELET COUNT 302 10^3/uL (150-450); RED BLOOD COUNT 3.81 10^6/uL (4.35-5.55); RED CELL DISTRIBUTION WIDTH 16.3 % (11.5-14.0); WHITE BLOOD COUNT 6.4 10^3/uL (4.0-10.5)
[2018-12-13 05:59] LABS: HEMOGLOBIN 11.1 g/dL (13.5-17.0)
[2018-12-13 06:01] LABS: ANION GAP 5 (5-19); BLOOD UREA NITROGEN 39 mg/dL (7-20); CALCIUM 7.4 mg/dL (8.4-10.2); CARBON DIOXIDE 25 mmol/L (22-30); CHLORIDE 101 mmol/L (98-107); GLUCOSE 177 mg/dL (75-110)
[2018-12-13] MEDS: BUDESONIDE NEB 0.5 MG/2 ML AMPUL NEB SCH ×2 (08:04→20:04)
[2018-12-13] MEDS: DOCUSATE SODIUM 100 MG CAPSULE PO SCH ×2 (09:09→17:07)
[2018-12-13] MEDS: LOSARTAN POTASSIUM 50 MG TABLET PO SCH ×2 (09:09→21:35)
[2018-12-13] MEDS: CARVEDILOL 12.5 MG TABLET PO SCH ×2 (09:09→21:35)
--- NOTE | 2018-12-13 10:36 | PDOC PROGRESS REPORT ---
Subjective Progress Note for:: 12/13/18 Subjective:: 12/13/2018-no complaints this a.m. Reason For Visit: ACUTE RESPIRATORY FAILURE WITH HYPOXIA Physical Exam Vital Signs: Temp Pulse Resp BP Pulse Ox 97.5 F 66 18 159/86 H 93 12/13/18 07:26 12/13/18 08:04 12/13/18 08:04 12/13/18 07:26 12/13/18 08:04 Intake & Output 12/12/18 12/13/18 12/14/18 06:59 06:59 06:59 Intake Total 221 2308 134 Output Total 500 1575 Balance -279 733 134 Weight 119.1 kg 120.5 kg General appearance: PRESENT: no acute distress, well-developed, well-nourished Neck exam: ABSENT: carotid bruit, JVD, lymphadenopathy, thyromegaly Respiratory exam: PRESENT: clear to auscultation liseth. ABSENT: rales, rhonchi, wheezes Cardiovascular exam: PRESENT: RRR. ABSENT: diastolic murmur, rubs, systolic murmur Pulses: PRESENT: +1 pedal pulses bilateral Vascular exam: PRESENT: normal capillary refill GI/Abdominal exam: PRESENT: normal bowel sounds, soft. ABSENT: distended, guarding, mass, organolmegaly, rebound, tenderness Extremities exam: PRESENT: +2 edema Neurological exam: PRESENT: alert, awake, oriented to person, oriented to place, oriented to time, oriented to situation, CN II-XII grossly intact. ABSENT: motor sensory deficit Psychiatric exam: PRESENT: appropriate affect, normal mood. ABSENT: homicidal ideation, suicidal ideation Skin exam: PRESENT: other - Bilateral lower externally lymphedema Results Laboratory Results: 12/13/18 05:11 12/13/18 05:11 12/13/18 12/13/18 05:11 05:11 WBC 6.4 RBC 3.81 L Hgb 11.1 L D Hct 33.7 L MCV 88 MCH 29.1 MCHC 32.9 RDW 16.3 H Plt Count 302 Sodium 131.3 L Potassium 4.0 Chloride 101 Carbon Dioxide 25 Anion Gap 5 BUN 39 H Creatinine 3.02 H Est GFR ( Amer) 26 L Glucose 177 H Calcium 7.4 L Magnesium 1.7 10/17/19 10/18/19 10/18/19 17:54 04:44 04:44 Creatine Kinase 437 H CK-MB (CK-2) 7.13 H Troponin I 0.053 0.067 NT-Pro-B Natriuret Pep 59870 H 12/12/18 12/12/18 12/12/18 10:14 10:14 16:12 Creatine Kinase 363 H 395 H CK-MB (CK-2) 7.01 H Troponin I 0.056 NT-Pro-B Natriuret Pep 12/12/18 16:12 Creatine Kinase CK-MB (CK-2) 7.83 H Troponin I 0.049 NT-Pro-B Natriuret Pep Impressions: Chest X-Ray 12/11/18 00:00 IMPRESSION: Bibasilar airspace opacities and suspected bilateral pleural effusions. Assessment and Plan - Diagnosis (1) Acute on chronic diastolic congestive heart failure Is this a current diagnosis for this admission?: Yes Plan: Patient be continued on his usual congestive heart failure medications with the additional therapy of a furosemide infusion and adjustments in dosage of his medications as required. Daily CBCs, metabolic profiles and and magnesium levels will be followed. 12/13/2018-patient is much improved today. He has bilateral upper extremity edema has resided. Patient remains with +2 pitting edema bilateral lower extremities. I have DC'd his furosemide infusion. I placed him on furosemide 20 mill grams p.o. daily. We will continue to follow. Patient does have acute on chronic renal disease as well. (2) Anasarca Is this a current diagnosis for this admission?: Yes Plan: Patient be started on a Lasix infusion at 20 mg/h. The infusion will be titrated as appropriate to achieve adequate diuresis to resolve his anasarca over a period of 4 to 5 days. He would then be placed on Demadex 50 mg daily. Patient's metabolic profile and magnesium levels were monitored on a regular basis throughout his hospital course. He will be on telemetry monitoring. 12/13/2018-much improved today. Lasix infusion has been DC'd. We will continue diuresis with furosemide 20 g p.o. daily. Continue to follow (3) Chronic kidney disease, stage III (moderate) Is this a current diagnosis for this admission?: Yes Plan: 12/13/2018-little worse today. Creatinine 3 most likely from insulin drip. I have DC'd diet insulin drip place patient on torsemide 20 mg p.o. twice daily. Will repeat BMP in a.m. Most likely will need a renal consult on Saturday. (4) Type 2 diabetes mellitus Qualifiers: Diabetes mellitus residential insulin use: without vermin exterminator use Diabetes mellitus complication status: with kidney complications Diabetes mellitus complication detail: with chronic kidney disease Chronic kidney disease stage: stage 3 (moderate) Qualified Code(s): E11.22 - Type 2 diabetes mellitus with diabetic chronic kidney disease; N18.3 - Chronic kidney disease, stage 3 (moderate) Is this a current diagnosis for this admission?: Yes Plan: Patient's diabetes appears to be well controlled with diet alone therefore he will be continued on diabetic diet throughout his hospital course. Regular Accu-Cheks will not be instituted however the patient's blood sugar can be checked randomly if any problems should develop. 12/13/2018-stable at this time continue to follow continue current therapy. (5) Hypertension Qualifiers: Hypertension type: essential hypertension Qualified Code(s): I10 - Essential (primary) hypertension Is this a current diagnosis for this admission?: Yes Plan: Patient will be continued on his current heart failure/antihypertensive regimen with adjustments made as required for achieving adequate control. His blood pressure be checked on a frequent basis throughout his hospital course with routine vital signs. 12/13/2018-systolic remains high. Will add Norvasc 5 mill grams p.o. daily continue to follow - Time Time Spent with patient: 15-24 minutes - Inpatient Certification Based on my medical assessment, after consideration of the patient's comorbidities, presenting symptoms, or acuity I expect that the services needed warrant INPATIENT care.: Yes I certify that my determination is in accordance with my understanding of Medicare's requirements for reasonable and necessary INPATIENT services [42 CFR 412.3e].: Yes Medical Necessity: Significant Comorbidiites Make Outpatient Treatment Too Risky, Need Close Monitoring Due to Risk of Patient Decompensation, Other - Diuresis
[2018-12-13] MEDS: TORSEMIDE 20 MG TABLET PO SCH ×2 (11:16→17:07)
[2018-12-13] MEDS ORDERED: AMLODIPINE BESYLATE 5 MG TABLET PO SCH (11:30)
[2018-12-14] MEDS: NITROGLYCERIN 2% OINTMENT 1 GM PACKET TP SCH ×5 (00:10→23:38)
[2018-12-14] MEDS: PANTOPRAZOLE SODIUM 40 MG TABLET.DR PO SCH ×2 (05:34→17:27)
[2018-12-14] MEDS: HEPARIN SOD (PORCINE) 5,000 UNIT/ML 1 ML VIAL SUBCUT SCH ×3 (05:43→21:39)
[2018-12-14 06:22] LABS: HEMATOCRIT 33.7 % (37.9-51.0); HEMOGLOBIN 11.1 g/dL (13.5-17.0); MEAN CORPUSCULAR HEMOGLOBIN 29.2 pg (27.0-33.4); MEAN CORPUSCULAR HGB CONC 32.9 g/dL (32.0-36.0); MEAN CORPUSCULAR VOLUME 89 fl (80-97); PLATELET COUNT 343 10^3/uL (150-450); RED CELL DISTRIBUTION WIDTH 16.4 % (11.5-14.0); WHITE BLOOD COUNT 5.6 10^3/uL (4.0-10.5)
[2018-12-14 06:40] LABS: ANION GAP 6 (5-19); BLOOD UREA NITROGEN 41 mg/dL (7-20); CALCIUM 7.3 mg/dL (8.4-10.2); CARBON DIOXIDE 25 mmol/L (22-30); CHLORIDE 103 mmol/L (98-107); GLUCOSE 148 mg/dL (75-110)
[2018-12-14] MEDS: BUDESONIDE NEB 0.5 MG/2 ML AMPUL NEB SCH ×2 (08:07→20:51)
[2018-12-14] MEDS: IPRATROPIUM BROMIDE 0.02% NEB 0.5 MG/2.5 ML AMPUL NEB SCH ×2 (08:07→20:51)
[2018-12-14] MEDS: LEVALBUTEROL HCL NEB 1.25 MG/3 ML AMPUL NEB SCH ×2 (08:07→20:51)
--- NOTE | 2018-12-14 09:04 | PDOC PROGRESS REPORT ---
Subjective Progress Note for:: 12/14/18 Subjective:: 12/13/2018-no complaints this a.m. 12/14/2018-no complaints this a.m.-no events overnight Reason For Visit: ACUTE RESPIRATORY FAILURE WITH HYPOXIA Physical Exam Vital Signs: Temp Pulse Resp BP Pulse Ox 97.6 F 80 18 166/80 H 91 L 12/14/18 07:18 12/14/18 07:18 12/14/18 07:18 12/14/18 07:18 12/14/18 07:18 Intake & Output 12/13/18 12/14/18 12/15/18 06:59 06:59 06:59 Intake Total 2308 2844 Output Total 1575 2675 Balance 733 169 Weight 120.5 kg 120.3 kg General appearance: PRESENT: no acute distress, well-developed, well-nourished Neck exam: ABSENT: carotid bruit, JVD, lymphadenopathy, thyromegaly Respiratory exam: PRESENT: clear to auscultation liseth, symmetrical, unlabored. ABSENT: rales, rhonchi, wheezes Cardiovascular exam: PRESENT: RRR. ABSENT: diastolic murmur, rubs, systolic murmur Pulses: PRESENT: +1 pedal pulses bilateral Vascular exam: PRESENT: normal capillary refill GI/Abdominal exam: PRESENT: normal bowel sounds, soft. ABSENT: distended, guarding, mass, organolmegaly, rebound, tenderness Extremities exam: PRESENT: full ROM, pedal edema, +2 edema, other - Bilateral extremity lymphedema. ABSENT: calf tenderness, clubbing Neurological exam: PRESENT: alert, awake, oriented to person, oriented to place, oriented to time, oriented to situation, CN II-XII grossly intact. ABSENT: motor sensory deficit Psychiatric exam: PRESENT: appropriate affect, normal mood. ABSENT: homicidal ideation, suicidal ideation Skin exam: PRESENT: dry, intact, warm, other - Bilateral lower extremity lymphedema. ABSENT: cyanosis, rash Results Laboratory Results: 12/14/18 05:31 12/14/18 05:31 12/14/18 12/14/18 05:31 05:31 WBC 5.6 RBC 3.80 L Hgb 11.1 L Hct 33.7 L MCV 89 MCH 29.2 MCHC 32.9 RDW 16.4 H Plt Count 343 Sodium 133.8 L Potassium 4.0 Chloride 103 Carbon Dioxide 25 Anion Gap 6 BUN 41 H Creatinine 3.21 H Est GFR ( Amer) 24 L Glucose 148 H Calcium 7.3 L Magnesium 1.6 12/11/18 12/12/18 12/12/18 17:54 04:44 04:44 Creatine Kinase 437 H CK-MB (CK-2) 7.13 H Troponin I 0.053 0.067 NT-Pro-B Natriuret Pep 33338 H 12/12/18 12/12/18 12/12/18 10:14 10:14 16:12 Creatine Kinase 363 H 395 H CK-MB (CK-2) 7.01 H Troponin I 0.056 NT-Pro-B Natriuret Pep 12/12/18 16:12 Creatine Kinase CK-MB (CK-2) 7.83 H Troponin I 0.049 NT-Pro-B Natriuret Pep Impressions: Chest X-Ray 12/11/18 00:00 IMPRESSION: Bibasilar airspace opacities and suspected bilateral pleural effusions. Assessment and Plan - Diagnosis (1) Acute on chronic diastolic congestive heart failure Is this a current diagnosis for this admission?: Yes Plan: Patient be continued on his usual congestive heart failure medications with the additional therapy of a furosemide infusion and adjustments in dosage of his medications as required. Daily CBCs, metabolic profiles and and magnesium levels will be followed. 12/13/2018-patient is much improved today. He has bilateral upper extremity edema has resided. Patient remains with +2 pitting edema bilateral lower extremities. I have DC'd his furosemide infusion. I placed him on furosemide 20 mill grams p.o. daily. We will continue to follow. Patient does have acute on chronic renal disease as well. 12/14/2018-much improved today. Bilateral upper extremity edema continues to resolved. Continue furosemide twice daily. Anticipate discharge home in the a.m. (2) Anasarca Is this a current diagnosis for this admission?: Yes Plan: Patient be started on a Lasix infusion at 20 mg/h. The infusion will be titrated as appropriate to achieve adequate diuresis to resolve his anasarca over a period of 4 to 5 days. He would then be placed on Demadex 50 mg daily. Patient's metabolic profile and magnesium levels were monitored on a regular basis throughout his hospital course. He will be on telemetry monitoring. 12/13/2018-much improved today. Lasix infusion has been DC'd. We will continue diuresis with furosemide 20 g p.o. daily. Continue to follow 12/14/2018-continues to be improved. Continue torosimide-20 mg p.o. twice daily (3) Chronic kidney disease, stage III (moderate) Is this a current diagnosis for this admission?: Yes Plan: 12/13/2018-little worse today. Creatinine 3 most likely from Lasix drip. I have DC'd Lasix drip place patient on torsemide 20 mg p.o. twice daily. Will repeat BMP in a.m. Most likely will need a renal consult on Saturday. 12/14/2018-stable at this point. Continue diuresis with torsemide 20 mill grams p.o. twice daily BMP in a.m. (4) Type 2 diabetes mellitus Qualifiers: Diabetes mellitus middle or intermediate school principal insulin use: without middle or intermediate school principal use Diabetes mellitus complication status: with kidney complications Diabetes mellitus complication detail: with chronic kidney disease Chronic kidney disease stage: stage 3 (moderate) Qualified Code(s): E11.22 - Type 2 diabetes mellitus with diabetic chronic kidney disease; N18.3 - Chronic kidney disease, stage 3 (moderate) Is this a current diagnosis for this admission?: Yes Plan: Patient's diabetes appears to be well controlled with diet alone therefore he will be continued on diabetic diet throughout his hospital course. Regular Accu-Cheks will not be instituted however the patient's blood sugar can be c hecked randomly if any problems should develop. 12/13/2018-stable at this time continue to follow continue current therapy. 12/14/2018-stable continue current therapy (5) Hypertension Qualifiers: Hypertension type: essential hypertension Qualified Code(s): I10 - Essential (primary) hypertension Is this a current diagnosis for this admission?: Yes Plan: Patient will be continued on his current heart failure/antihypertensive regimen with adjustments made as required for achieving adequate control. His blood pressure be checked on a frequent basis throughout his hospital course with routine vital signs. 12/13/2018-systolic remains high. Will add Norvasc 5 mill grams p.o. daily continue to follow 12/14/2018-I have increase Norvasc to 10 mg p.o. daily continue to follow make adjustments based on patient needs - Time Time Spent with patient: 15-24 minutes - Inpatient Certification Based on my medical assessment, after consideration of the patient's comorbidities, presenting symptoms, or acuity I expect that the services needed warrant INPATIENT care.: Yes I certify that my determination is in accordance with my understanding of Medicare's requirements for reasonable and necessary INPATIENT services [42 CFR 412.3e].: Yes Medical Necessity: Significant Comorbidiites Make Outpatient Treatment Too Risky, Need Close Monitoring Due to Risk of Patient Decompensation, Other - Diuresis
[2018-12-14] MEDS: LOSARTAN POTASSIUM 50 MG TABLET PO SCH ×2 (09:46→21:39)
[2018-12-14] MEDS: TORSEMIDE 20 MG TABLET PO SCH ×2 (09:46→17:27)
[2018-12-14] MEDS: DOCUSATE SODIUM 100 MG CAPSULE PO SCH ×2 (09:46→17:27)
[2018-12-14] MEDS: AMLODIPINE BESYLATE 10 MG TABLET PO SCH (09:46)
[2018-12-14] MEDS: CARVEDILOL 12.5 MG TABLET PO SCH ×2 (09:46→21:39)
[2018-12-15 05:03] LABS: HEMATOCRIT 33.9 % (37.9-51.0); HEMOGLOBIN 11.3 g/dL (13.5-17.0); MEAN CORPUSCULAR HEMOGLOBIN 29.4 pg (27.0-33.4); MEAN CORPUSCULAR HGB CONC 33.2 g/dL (32.0-36.0); MEAN CORPUSCULAR VOLUME 89 fl (80-97); PLATELET COUNT 357 10^3/uL (150-450); RED BLOOD COUNT 3.83 10^6/uL (4.35-5.55); RED CELL DISTRIBUTION WIDTH 16.5 % (11.5-14.0); WHITE BLOOD COUNT 5.3 10^3/uL (4.0-10.5)
[2018-12-15] MEDS: HEPARIN SOD (PORCINE) 5,000 UNIT/ML 1 ML VIAL SUBCUT SCH (05:27)
[2018-12-15] MEDS: NITROGLYCERIN 2% OINTMENT 1 GM PACKET TP SCH ×2 (05:28→12:42)
[2018-12-15] MEDS: PANTOPRAZOLE SODIUM 40 MG TABLET.DR PO SCH (05:28)
[2018-12-15 05:30] LABS: ANION GAP 5 (5-19); BLOOD UREA NITROGEN 42 mg/dL (7-20); CALCIUM 7.5 mg/dL (8.4-10.2); CARBON DIOXIDE 28 mmol/L (22-30); CHLORIDE 101 mmol/L (98-107); GLUCOSE 133 mg/dL (75-110); POTASSIUM 4.1 mmol/L (3.6-5.0)
--- NOTE | 2018-12-15 08:35 | PDOC DISCHARGE SUMMARY ---
Impression - Admit/DC Date/PCP Admission Date/Primary Care Provider: 12/12/18 00:54 ITALIA BOO MD Discharge Date: 12/15/18 - Discharge Diagnosis (1) Acute on chronic diastolic congestive heart failure Is this a current diagnosis for this admission?: Yes (2) Anasarca Is this a current diagnosis for this admission?: Yes (3) Chronic kidney disease, stage III (moderate) Is this a current diagnosis for this admission?: Yes (4) Type 2 diabetes mellitus Is this a current diagnosis for this admission?: Yes (5) Hypertension Is this a current diagnosis for this admission?: Yes - Additional Information Resuscitation Status: Full Code Discharge Diet: Cardiac, Diabetic, Other (Comments) Discharge Activity: Activity As Tolerated, Balance Activity w/Rest, Weigh Daily Referrals: ITALIA BOO MD [Primary Care Provider] - PEGGY EPPERSON MD [ACTIVE STAFF] - Follow up as needed Home Medications: Amlodipine Besylate [Norvasc 2.5 mg Tablet] 2.5 mg PO DAILY 12/12/18 Aspirin [Ecotrin 81 mg EC Tablet] 81 mg PO DAILY 12/12/18 Atorvastatin Calcium [Lipitor 40 mg Tablet] 40 mg PO QHS 12/12/18 Furosemide [Lasix 40 mg Tablet] 40 mg PO DAILY 12/12/18 Glipizide [Glipizide Xl] 5 mg PO [id number] 12/12/18 Losartan Potassium [Cozaar 50 mg Tablet] 50 mg PO DAILY 12/12/18 History of Present Illiness History of Present Illness: JARED HORVATH JR is a 58 year old male with a history of systolic congestive heart failure presented to the ER with a 6-month history of gradually worsening dyspnea accompanied by aggressive worsening peripheral edema and associated symptoms of his congestive heart failure Hospital Course Hospital Course: Patient admitted to the hospitalist service to the ER with a 6-month history of dyspnea. Patient stated on Lasix months it appears gradual worsening dyspnea accompanied by progressively worsening peripheral edema and associated with symptoms of progressively worsening orthopnea. He denied other associated symptoms or signs. Stated his dyspnea is worsened by exertion and through generally relieved by use of oxygen at home. Patient states that throughout this timeframe he had not been able get relief with oxygen or his nebulizer treatments for COPD. Patient was found to have a BNP of 10,300 in the ER was admitted to [facility] and aggressively diuresed at that time. Patient was initially placed on a Lasix drip at 30 mg an hour and show good response. And transferred patient over to torsemide 20 mg p.o. twice daily which we will continue at home. Patient will follow-up with his primary care practitioner in 1 week. Patient also has an appointment on the to see Dr. Epperson in reference to his chronic renal disease. I discussed this in detail with patient and patient is agreeable plan of care. Physical Exam Vital Signs: Temp Pulse Resp BP Pulse Ox 97.7 F 83 17 158/101 H 91 L 12/15/18 08:20 12/15/18 08:20 12/15/18 08:20 12/15/18 08:20 12/15/18 08:20 Intake & Output 12/14/18 12/15/18 12/16/18 06:59 06:59 06:59 Intake Total 2844 1815 Output Total 2675 3325 Balance 169 -1510 Weight 120.3 kg 119.1 kg General appearance: PRESENT: no acute distress, well-developed, well-nourished Neck exam: ABSENT: carotid bruit, JVD, lymphadenopathy, thyromegaly Respiratory exam: PRESENT: clear to auscultation liseth, symmetrical, unlabored. ABSENT: rales, rhonchi, wheezes Cardiovascular exam: PRESENT: RRR. ABSENT: diastolic murmur, rubs, systolic murmur Pulses: PRESENT: +1 pedal pulses bilateral Vascular exam: PRESENT: normal capillary refill GI/Abdominal exam: PRESENT: normal bowel sounds, soft. ABSENT: distended, guarding, mass, organolmegaly, rebound, tenderness Extremities exam: PRESENT: full ROM, pedal edema, +2 edema, other - Chronic lymphedema of the lower extremities. ABSENT: calf tenderness, clubbing Neurological exam: PRESENT: alert, awake, oriented to person, oriented to place, oriented to time, oriented to situation, CN II-XII grossly intact. ABSENT: motor sensory deficit Psychiatric exam: PRESENT: appropriate affect, normal mood. ABSENT: homicidal ideation, suicidal ideation Skin exam: PRESENT: dry, intact, warm, other - Chronic lymphedema of the bilateral lower extremities. ABSENT: cyanosis, rash Results Laboratory Results: WBC 5.3 10^3/uL (4.0-10.5) 12/15/18 03:25 RBC 3.83 10^6/uL (4.35-5.55) L 12/15/18 03:25 Hgb 11.3 g/dL (13.5-17.0) L 12/15/18 03:25 Hct 33.9 % (37.9-51.0) L 12/15/18 03:25 MCV 89 fl (80-97) 12/15/18 03:25 MCH 29.4 pg (27.0-33.4) 12/15/18 03:25 MCHC 33.2 g/dL (32.0-36.0) 12/15/18 03:25 RDW 16.5 % (11.5-14.0) H 12/15/18 03:25 Plt Count 357 10^3/uL (150-450) 12/15/18 03:25 Lymph % (Auto) Not Reportable 12/11/18 17:54 [place] % (Auto) Not Reportable 12/11/18 17:54 Eos % (Auto) Not Reportable 12/11/18 17:54 Baso % (Auto) Not Reportable 12/11/18 17:54 Absolute Neuts (auto) Not Reportable 12/11/18 17:54 Absolute Lymphs (auto) Not Reportable 12/11/18 17:54 Absolute Monos (auto) Not Reportable 12/11/18 17:54 Absolute Eos (auto) Not Reportable 12/11/18 17:54 Absolute Basos (auto) Not Reportable 12/11/18 17:54 Total Counted 100 12/11/18 17:54 Seg Neutrophils % Not Reportable 12/11/18 17:54 Seg Neuts % (Manual) 82 % (42-78) H 12/11/18 17:54 Band Neutrophils % 4 % (3-5) 12/11/18 17:54 Lymphocytes % (Manual) 7 % (13-45) L 12/11/18 17:54 Monocytes % (Manual) 7 % (3-13) 12/11/18 17:54 Eosinophils % (Manual) 0 % (0-6) 12/11/18 17:54 Basophils % (Manual) 0 % (0-2) 12/11/18 17:54 Abs Neuts (Manual) 8.3 10^3/uL (1.7-8.2) H 12/11/18 17:54 Abs Lymphs (Manual) 0.7 10^3/uL (0.5-4.7) 12/11/18 17:54 Abs Monocytes (Manual) 0.7 10^3/uL (0.1-1.4) 12/11/18 17:54 Absolute Eos (Manual) 0.0 10^3/uL (0.0-0.6) 12/11/18 17:54 Abs Basophils (Manual) 0.0 10^3/uL (0.0-0.2) 12/11/18 17:54 Clumped Platelets PRESENT 12/11/18 17:54 Platelet Comment ADEQUATE 12/11/18 17:54 Anisocytosis 1+ 12/11/18 17:54 PT 13.0 SEC (11.4-15.4) 12/11/18 17:54 INR 0.98 12/11/18 17:54 APTT 30.6 SEC (23.5-35.8) 12/11/18 17:54 Sodium 134.3 mmol/L (137-145) L 12/15/18 03:25 Potassium 4.1 mmol/L (3.6-5.0) 12/15/18 03:25 Chloride 101 mmol/L (98-107) 12/15/18 03:25 Carbon Dioxide 28 mmol/L (22-30) 12/15/18 03:25 Anion Gap 5 (5-19) 12/15/18 03:25 BUN 42 mg/dL (7-20) H 12/15/18 03:25 Creatinine 3.20 mg/dL (0.52-1.25) H 12/15/18 03:25 Est GFR ( Amer) 24 (>60) L 12/15/18 03:25 Est GFR (MDRD) Non-Af 20 (>60) L 12/15/18 03:25 Glucose 133 mg/dL (75-110) H 12/15/18 03:25 Hemoglobin A1c % 7.4 % (4.7-6.0) H 12/12/18 04:44 Calcium 7.5 mg/dL (8.4-10.2) L 12/15/18 03:25 Magnesium 1.7 mg/dL (1.6-2.3) 12/15/18 03:25 Total Bilirubin 1.4 mg/dL (0.2-1.3) H 12/11/18 17:54 Direct Bilirubin 0.1 mg/dL (0.0-0.4) 12/11/18 17:54 Neonat Total Bilirubin Not Reportable 12/11/18 17:54 Neonat Direct Bilirubin Not Reportable 12/11/18 17:54 Neonat Indirect Bili Not Reportable 12/11/18 17:54 AST 30 U/L (17-59) 12/11/18 17:54 ALT 19 U/L (<50) 12/11/18 17:54 Alkaline Phosphatase 124 U/L (38-126) 12/11/18 17:54 Creatine Kinase 395 U/L (55-170) H 12/12/18 16:12 CK-MB (CK-2) 7.83 ng/mL (<4.55) H 12/12/18 16:12 Troponin I 0.049 ng/mL 12/12/18 16:12 NT-Pro-B Natriuret Pep 80571 pg/mL (5-900) H 12/11/18 17:54 Total Protein 5.7 g/dL (6.3-8.2) L 12/11/18 17:54 Albumin 2.4 g/dL (3.5-5.0) L 12/11/18 17:54 Triglycerides 69 mg/dL (<150) 12/12/18 04:44 Cholesterol 276.13 mg/dL (0-200) H 12/12/18 04:44 LDL Cholesterol Direct 62 mg/dL (<100) 12/12/18 04:44 VLDL Cholesterol 14.0 mg/dL (10-31) 12/12/18 04:44 HDL Cholesterol 146 mg/dL (>40) 12/12/18 04:44 TSH 1.15 uIU/mL (0.47-4.68) 12/12/18 04:44 Free T4 0.78 ng/dL (0.78-2.19) 12/12/18 04:44 Free T3 pg/mL 1.49 pg/mL (2.77-5.27) L 12/12/18 04:44 Urine Color YELLOW 12/11/18 19:06 Urine Appearance CLEAR 12/11/18 19:06 Urine pH 7.0 (5.0-9.0) 12/11/18 19:06 Ur Specific [place] 1.008 12/11/18 19:06 Urine Protein >=500 mg/dL (NEGATIVE) H 12/11/18 19:06 Urine Glucose (UA) 50 mg/dL (NEGATIVE) H 12/11/18 19:06 Urine Ketones NEGATIVE mg/dL (NEGATIVE) 12/11/18 19:06 Urine Blood SMALL (NEGATIVE) H 12/11/18 19:06 Urine Nitrite NEGATIVE (NEGATIVE) 12/11/18 19:06 Urine Bilirubin NEGATIVE (NEGATIVE) 12/11/18 19:06 Urine Urobilinogen NEGATIVE mg/dL (<2.0) 12/11/18 19:06 Ur Leukocyte Esterase NEGATIVE (NEGATIVE) 12/11/18 19:06 Urine WBC (Auto) 1 /HPF 12/11/18 19:06 Urine RBC (Auto) 2 /HPF 12/11/18 19:06 Urine Mucus (Auto) RARE /LPF 12/11/18 19:06 Urine Ascorbic Acid NEGATIVE (NEGATIVE) 12/11/18 19:06 Blood Type O POSITIVE 12/11/18 17:54 Antibody Screen NEGATIVE 12/11/18 17:54 12/11/18 12/12/18 12/12/18 17:54 04:44 10:14 CK-MB (CK-2) 7.13 H 7.01 H Troponin I 0.053 0.067 0.056 NT-Pro-B Natriuret Pep 13260 H 12/12/18 16:12 CK-MB (CK-2) 7.83 H Troponin I 0.049 NT-Pro-B Natriuret Pep Impressions: Chest X-Ray 12/11/18 00:00 IMPRESSION: Bibasilar airspace opacities and suspected bilateral pleural effusions. Plan Time Spent: Greater than 30 Minutes Stroke Is this a Stroke Patient?: No Acute Heart Failure - Is this a Heart Failure Patient?: Yes Documentation of LVEF assessment?: Yes LVEF < 40%?: Yes-if yes answer questions a through e a) Discharged on ACEI?: Yes b) Discharges on ARB?: N/A-Discharged on ARNI Reason(s) not discharged on ARB: Other - On JOANN c) Discharged on ARNI?: No-Document Contraindications Reason(s) not discharged on ARNI: ACEI use within the prior 36 hours d) Discharged on evidence-based Beta janice(carvedilol, sustained release metoprolol succinate, or bisoprolol)?: Yes e) For LVEF <35%, discharged on Aldosterone antagonist?: N/A (LVEF > or = 35%) Reason(s) not discharged on Aldosterone antagonist for LVEF < 35%: Renal dysfunction (creatinine >2.5 mg/dL in men or 2.0 mg/dL in women) Reason(s) not discharged on anticoagulant therapy for permanect/persistent/paraoxysmal Afib or Aflutter: Uncooperative/unreliable patient
[2018-12-15] MEDS: IPRATROPIUM BROMIDE 0.02% NEB 0.5 MG/2.5 ML AMPUL NEB SCH (08:37)
[2018-12-15] MEDS: BUDESONIDE NEB 0.5 MG/2 ML AMPUL NEB SCH (08:37)
[2018-12-15] MEDS: LEVALBUTEROL HCL NEB 1.25 MG/3 ML AMPUL NEB SCH (08:37)
[2018-12-15] MEDS: TORSEMIDE 20 MG TABLET PO SCH ×2 (09:12→09:21)
[2018-12-15] MEDS: AMLODIPINE BESYLATE 10 MG TABLET PO SCH (09:12)
[2018-12-15] MEDS: CARVEDILOL 12.5 MG TABLET PO SCH (09:12)
[2018-12-15] MEDS: DOCUSATE SODIUM 100 MG CAPSULE PO SCH (09:12)
[2018-12-15] MEDS: LOSARTAN POTASSIUM 50 MG TABLET PO SCH (09:13)
[2018-12-15 13:12] VITALS: BP 144/91
== END 2018-12-15 14:16 | disposition home or self-care (01) | DRG 291 ==
LOC: ER 17:15 → EH 12-12 00:54 → 3N 12-12 03:37
PROVIDERS: ADMIT Emergency Medicine; ATTEND Emergency Medicine
DX: I13.0 Hypertensive heart and chronic kidney disease with heart failure and stage 1 through stage 4 chronic kidney disease, or unspecified chronic kidney disease (principal); I50.33 Acute on chronic diastolic (congestive) heart failure; I16.9 Hypertensive crisis, unspecified; E78.5 Hyperlipidemia, unspecified; J44.9 Chronic obstructive pulmonary disease, unspecified; E66.9 Obesity, unspecified; M19.90 Unspecified osteoarthritis, unspecified site; F10.20 Alcohol dependence, uncomplicated; E11.22 Type 2 diabetes mellitus with diabetic chronic kidney disease; N18.3 Chronic kidney disease, stage 3 (moderate); Z82.49 Family history of ischemic heart disease and other diseases of the circulatory system; Z79.82 Long term (current) use of aspirin; Z79.899 Other long term (current) drug therapy
CPT/HCPCS: 36415; 71045; 80048; 80053; 80061; 81001; 82550; 82553; 83036; 83735; 83880; 84439; 84443; 84481; 84484; 85025; 85027; 85610; 85730; 86850; 86900; 86901; 93005; 93010; 96374; 99285; J1644; J1940; J2270; J3490; J7050

== ENCOUNTER → 2018-12-25 | Outpatient (CLI) | payer MEDICARE, MEDICAID, OTHER ==
[2018-12-25 08:49] LABS: ALBUMIN 2.5 g/dL (3.5-5.0); ALKALINE PHOSPHATASE 108 U/L (38-126); ANION GAP 5 (5-19); ASPARTATE AMINO TRANSFERASE 28 U/L (17-59); BILIRUBIN,DIRECT 0.1 mg/dL (0.0-0.4); BILIRUBIN,TOTAL 0.4 mg/dL (0.2-1.3); BLOOD UREA NITROGEN 27 mg/dL (7-20); CALCIUM 8.2 mg/dL (8.4-10.2); CARBON DIOXIDE 29 mmol/L (22-30); CHLORIDE 102 mmol/L (98-107); CHOLESTEROL 243.67 mg/dL (0-200); GLUCOSE 123 mg/dL (75-110); POTASSIUM 3.8 mmol/L (3.6-5.0); TOTAL PROTEIN 5.9 g/dL (6.3-8.2); TRIGLYCERIDES 92 mg/dL (<150)
[2018-12-25 09:00] LABS: DIRECT LDL 88 mg/dL (<100)
== END ==
LOC: LAB 08:12
PROVIDERS: ATTEND Family Medicine Geriatric Medicine
DX: E78.5 Hyperlipidemia, unspecified (principal); I50.9 Heart failure, unspecified; Z79.899 Other long term (current) drug therapy
CPT/HCPCS: 36415; 80048; 80061; 80076

== ENCOUNTER → 2019-01-16 | Outpatient (CLI) | payer MEDICARE, MEDICAID, OTHER ==
[2019-01-16 09:47] LABS: BLOOD UREA NITROGEN 34 mg/dL (7-20); GLUCOSE 134 mg/dL (75-110); POTASSIUM 4.8 mmol/L (3.6-5.0)
[2019-01-16 09:52] LABS: CARBON DIOXIDE 28 mmol/L (22-30); CHLORIDE 100 mmol/L (98-107)
[2019-01-16 10:08] LABS: ANION GAP 4 (5-19)
[2019-01-17 11:37] LABS: CREATININE URINE 73.2 mg/dL (Not Estab.)
[2019-01-17 18:05] LABS: MICROALBUMIN URINE 3973.6 ug/mL (Not Estab.)
== END ==
LOC: LAB 08:47
PROVIDERS: ATTEND Family Medicine Geriatric Medicine
DX: E11.9 Type 2 diabetes mellitus without complications (principal); I50.9 Heart failure, unspecified; E78.5 Hyperlipidemia, unspecified; Z79.899 Other long term (current) drug therapy
CPT/HCPCS: 36415; 80048; 82043; 82570; 83036

== ENCOUNTER → 2019-02-28 | Outpatient (CLI) | payer MEDICARE, MEDICAID, OTHER ==
[2019-02-28 09:35] LABS: ALBUMIN 3.1 g/dL (3.5-5.0); ALKALINE PHOSPHATASE 97 U/L (38-126); ASPARTATE AMINO TRANSFERASE 25 U/L (17-59); BILIRUBIN,DIRECT 0.3 mg/dL (0.0-0.4); BILIRUBIN,TOTAL 0.5 mg/dL (0.2-1.3); CHOLESTEROL 262.62 mg/dL (0-200); TRIGLYCERIDES 159 mg/dL (<150)
[2019-02-28 09:46] LABS: DIRECT LDL 116 mg/dL (<100)
[2019-02-28 09:50] LABS: VLDL CHOLESTEROL 31.8 mg/dL (10-31)
== END ==
LOC: OD 08:12
PROVIDERS: ATTEND Family Medicine Geriatric Medicine
DX: E78.5 Hyperlipidemia, unspecified (principal); Z79.899 Other long term (current) drug therapy
CPT/HCPCS: 36415; 80061; 80076

== ENCOUNTER → 2019-03-09 | Outpatient (CLI) | payer MEDICARE, MEDICAID, OTHER ==
--- NOTE | 2019-03-10 10:06 | XCELERA REPORT ---
[address] [address] Lower Extremity Arterial Evaluation Name: JARED HORVATH JR Age: 58 yrs Gender: Male : 1960 Patient Status: Outpatient Patient Location: Study Date: 03/09/2019 02:25 PM Procedure: A color flow and duplex scan of the lower extremity arteries was performed bilaterally with velocity and waveform anaylsis. Ankle brachial indicies performed. 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 Biphasic with normal velocity,spectral broadening from Popliteal to Posterior Tibial. Monophasic, low velocity, spectral broadening in the distal Anterior Tibial. Ankle Brachial index not obtained due to non compressibility. Left Side Arterial Evaluation Normal velocity and triphasic waveforms noted from the Common Femoral artery to the Femoral . Biphasic with normal velocity, spectral broadening from Popliteal to infrageniculate vessels. Monophasic, low velocity, spectral broadening in the distal Anterior Tibial. Ankle Brachial index not obtained due to non compressibility. Interpretation Summary Moderate hemodynamically significant lesions in the bilateral lower extremities, on duplex imaging, at rest. Duplex imaging does not demonstrate focal stenosis. On the right Compromise in arterial flow is noted in the Popliteal and sequentially in the Anterior Tibial artery. On the left Compromise in arterial flow is noted in the infrageniculate vessels. PIPE's not obtainable, due to arterial wall stiffness, likely due to calcification and or atherosclerosis. : DYLAN ABAD > Jeremy Del Rio
== END ==
LOC: SP 12:59
PROVIDERS: ATTEND Nurse Practitioner Family
DX: L97.222 Non-pressure chronic ulcer of left calf with fat layer exposed (principal)
CPT/HCPCS: 93922; 93925

== ENCOUNTER 2019-03-14 15:30 | Emergency (ER) | payer MEDICARE, MEDICAID, OTHER ==
--- NOTE | 2019-03-14 15:42 | ER Document Report ---
ED Medical Screen (RME) - General Chief Complaint: Abnormal Lab Results Stated Complaint: ABNORMAL LABS Time Seen by Provider: 03/14/19 15:37 Primary Care Provider: DYLAN ABAD NP, [facility] [employer] [facility] [Primary Care Provider] - Follow up as needed TRAVEL OUTSIDE OF THE [place] IN LAST 30 DAYS: No - HPI Notes: 03/14/19 15:40 Patient is a 58-year-old male with a history of CHF, hyperlipidemia, hyper tension, COPD, type 2 diabetes, CKD presents per the direction of his wound care for having elevated potassium on March 05 of 6.3. Patient states that he is otherwise been feeling well. He is eating and drinking without difficulty. He is urinating normally. Denies drug allergies. No other concerns or complaints. I did review the labs and he also shows increase in his creatinine from baselin e to 4.02. No fever, chest pain, shortness breath, abdominal pain. I have treated and performed a rapid initial assessment of this patient. A comprehensive ED assessment and evaluation of the patient, analysis of test results and completion of medical decision making process will be conducted by additional ED providers. PHYSICAL EXAMINATION: GENERAL: Well-appearing, well-nourished and in no acute distress. A&Ox4. Answers questions appropriately. Heart: RRR Lungs: CTAB - Related Data Allergies/Adverse Reactions: No Known Allergies Allergy (Verified 06/10/18 17:31) Past Medical History - Past Medical History Cardiac Medical History: Reports: Hx Congestive Heart Failure, Hx Hypercholesterolemia, Hx Hypertension Pulmonary Medical History: Reports: Hx COPD, Hx Pneumonia, Hx Respiratory Failure Neurological Medical History: Denies: Hx Seizures Endocrine Medical History: Reports: Hx Diabetes Mellitus Type 2. Denies: Hx Diabetes Mellitus Type 1, Hx Hyperthyroidism, Hx Hypothyroidism Renal/ Medical History: Reports: Hx End Stage Renal Disease. Denies: Hx Peritoneal Dialysis GI Medical History: Denies: Hx Cirrhosis, Hx Crohn's Disease, Hx Hepatitis, Hx Ulcerative Colitis Musculoskeltal Medical History: Reports Hx Arthritis, Denies Hx Gout, Reports Hx Musculoskeletal Deformity, Reports Hx Musculoskeletal Trauma Skin Medical History: Denies Hx Eczema, Denies Hx Psoriasis Psychiatric Medical History: Denies: Hx Depression Traumatic Medical History: Reports: Hx Fractures Infectious Medical History: Denies: Hx Hepatitis Past Surgical History: Reports: Hx Abdominal Surgery, Hx Orthopedic Surgery Physical Exam - Vital signs Vitals: Temp Pulse Resp BP Pulse Ox 97.9 F 93 14 167/92 H 98 03/14/19 15:35 03/14/19 15:35 03/14/19 15:35 03/14/19 15:35 03/14/19 15:35 Course - Vital Signs Vital signs: Temp Pulse Resp BP Pulse Ox 97.9 F 93 14 167/92 H 98 03/14/19 15:35 03/14/19 15:35 03/14/19 15:35 03/14/19 15:35 03/14/19 15:35 Doctor's Discharge - Discharge Referrals: DYLAN ABAD [facility] [employer] [facility], [facility] [employer] [Primary Care Provider] - Follow up as needed
[2019-03-14 16:26] LABS: ABSOLUTE BASOPHILS # (AUTO) 0.1 10^3/uL (0.0-0.2); ABSOLUTE EOSINOPHILS # (AUTO) 0.2 10^3/uL (0.0-0.6); ABSOLUTE LYMPHOCYTES (AUTO) 1.2 10^3/uL (0.5-4.7); ABSOLUTE MONOCYTES (AUTO) 0.8 10^3/uL (0.1-1.4); ABSOLUTE NEUT (AUTO) 4.8 10^3/uL (1.7-8.2); BASOPHILS % (AUTO) 0.9 % (0-2); EOSINOPHILS % (AUTO) 2.8 % (0-6); HEMOGLOBIN 12.3 g/dL (13.5-17.0); LYMPHOCYTES % (AUTO) 17.6 % (13-45); MEAN CORPUSCULAR HEMOGLOBIN 30.1 pg (27.0-33.4); MEAN CORPUSCULAR HGB CONC 33.2 g/dL (32.0-36.0); MEAN CORPUSCULAR VOLUME 91 fl (80-97); MONOCYTES % (AUTO) 10.8 % (3-13); PLATELET COUNT 341 10^3/uL (150-450); RED BLOOD COUNT 4.08 10^6/uL (4.35-5.55); RED CELL DISTRIBUTION WIDTH 15.2 % (11.5-14.0); SEGMENTED NEUTROPHILS % (AUTO) 67.9 % (42-78); TOTAL CELLS COUNTED % (AUTO) 100 %; WHITE BLOOD COUNT 7.1 10^3/uL (4.0-10.5)
[2019-03-14 16:31] LABS: APPEARANCE,URINE SLIGHTLY-CLOUDY; BILIRUBIN,URINE NEGATIVE (NEGATIVE); COLOR,URINE YELLOW; GLUCOSE, URINE 150 mg/dL (NEGATIVE); KETONES,URINE NEGATIVE (NEGATIVE); PROTEIN,URINE >=500 mg/dL (NEGATIVE); UROBILINOGEN,URINE NEGATIVE mg/dL (<2.0)
[2019-03-14 16:40] LABS: ALBUMIN 3.3 g/dL (3.5-5.0); ALKALINE PHOSPHATASE 98 U/L (38-126); ANION GAP 9 (5-19); ASPARTATE AMINO TRANSFERASE 24 U/L (17-59); BILIRUBIN,DIRECT 0.3 mg/dL (0.0-0.4); BILIRUBIN,TOTAL 0.4 mg/dL (0.2-1.3); BLOOD UREA NITROGEN 43 mg/dL (7-20); CARBON DIOXIDE 22 mmol/L (22-30); CHLORIDE 107 mmol/L (98-107); GLUCOSE 94 mg/dL (75-110); POTASSIUM 5.1 mmol/L (3.6-5.0); TOTAL PROTEIN 7.3 g/dL (6.3-8.2)
--- NOTE | 2019-03-14 17:12 | ER Document Report ---
ED General - General Chief Complaint: Abnormal Lab Results Stated Complaint: ABNORMAL LABS Time Seen by Provider: 03/14/19 15:37 Primary Care Provider: PEGGY TORRES MD [ACTIVE STAFF] - Follow up in 3-5 days DYLAN ABAD NP, [employer] POWDER MIXER OPERATOR [NURSE PRACTITIONER] - Follow up in 3-5 days Notes: 58-year-old male with history of CKD stage III presents for elevated potassium. Patient had labs drawn on 03/05 and was told to come to the ER due to potassium of 6.3. Patient was seen by wound clinic and was sent here due to this elevated potassium. Patient states he sees wound clinic due to a wound on his heel that he states is doing well. Patient denies any chest pain, dyspnea, abdominal pain, nausea/vomiting/diarrhea, weakness. Patient denies taking any potassium supplementation. TRAVEL OUTSIDE OF THE [place] IN LAST 30 DAYS: No - Related Data Allergies/Adverse Reactions: No Known Allergies Allergy (Verified 06/10/18 17:31) Past Medical History - Social History Smoking Status: Never Smoker Chew tobacco use (# tins/day): No Frequency of alcohol use: Occasional Drug Abuse: None Family History: CAD, Hypertension, Malignancy. denies: DM Patient has suicidal ideation: No Patient has homicidal ideation: No - Past Medical History Cardiac Medical History: Reports: Hx Congestive Heart Failure, Hx Hypercholesterolemia, Hx Hypertension Pulmonary Medical History: Reports: Hx COPD, Hx Pneumonia, Hx Respiratory Failure Neurological Medical History: Denies: Hx Seizures Endocrine Medical History: Reports: Hx Diabetes Mellitus Type 2. Denies: Hx Diabetes Mellitus Type 1, Hx Hyperthyroidism, Hx Hypothyroidism Renal/ Medical History: Reports: Hx End Stage Renal Disease. Denies: Hx Peritoneal Dialysis GI Medical History: Denies: Hx Cirrhosis, Hx Crohn's Disease, Hx Hepatitis, Hx Ulcerative Colitis Musculoskeletal Medical History: Reports Hx Arthritis, Denies Hx Gout, Reports Hx Musculoskeletal Deformity, Reports Hx Musculoskeletal Trauma Skin Medical History: Denies Hx Eczema, Denies Hx Psoriasis Psychiatric Medical History: Denies: Hx Depression Traumatic Medical History: Reports: Hx Fractures Infectious Medical History: Denies: Hx Hepatitis Past Surgical History: Reports: Hx Abdominal Surgery, Hx Orthopedic Surgery - Immunizations Hx Pneumococcal Vaccination: 02/25/18 Review of Systems - Review of Systems Notes: Constitutional: Negative for fever. HENT: Negative for sore throat. Eyes: Negative for visual changes. Cardiovascular: Negative for chest pain. Respiratory: Negative for shortness of breath. Gastrointestinal: Negative for abdominal pain, vomiting or diarrhea. Genitourinary: Negative for dysuria. Musculoskeletal: Negative for back pain. Skin: Negative for rash. Neurological: Negative for headaches, weakness or numbness. 10 point ROS negative except as marked above and in HPI. Physical Exam - Vital signs Vitals: Temp Pulse Resp BP Pulse Ox 97.9 F 93 14 167/92 H 98 03/14/19 15:35 03/14/19 15:35 03/14/19 15:35 03/14/19 15:35 03/14/19 15:35 - Notes Notes: GENERAL: Well-appearing, well-nourished and in no acute distress. HEAD: Atraumatic, normocephalic. EYES: Extraocular movements intact, sclera anicteric, conjunctiva are normal. NECK: Normal range of motion, supple without lymphadenopathy or JVD. LUNGS: Breath sounds clear to auscultation bilaterally and equal. No wheezes rales or rhonchi. HEART: Regular rate and rhythm without murmurs, rubs or gallops. ABDOMEN: Soft, nontender. No guarding, no rebound. No masses appreciated. EXTREMITIES: Normal range of motion, no pitting or edema. No clubbing or cyanosis. NEUROLOGICAL: Cranial nerves II through XII grossly intact. Normal speech, normal gait. PSYCH: Normal mood, normal affect. SKIN: Warm, Dry, normal turgor, no rashes or lesions noted. Course - Re-evaluation Re-evalutation: 03/14/19 nontoxic, well-appearing 58-year-old male presents for elevated potassium on labs that were drawn on 03/05. Patient denies any chest pain, dyspnea, weakness. Patient's repeat lab work that was done today shows potassium of 5.1. EKG shows taller T waves but they are not peaked compared to his last EKG. Patient's kidney function has mildly improved since his lab work on 03/05. Discussed with attending, Dr. England, who states to have pt follow up with vacuum applicator operator and may discharge home. Discussed all results with pt. Pt encouraged increase oral hydration. Strict return precautions given. Close follow up with PCP. Pt voices understanding and agrees with plan of care. - Vital Signs Vital signs: Temp Pulse Resp BP Pulse Ox 97.9 F 93 14 167/92 H 98 03/14/19 15:35 03/14/19 15:35 03/14/19 15:35 03/14/19 15:35 03/14/19 15:35 - Laboratory Result Diagrams: 03/14/19 16:00 03/14/19 16:00 Laboratory results interpreted by me: 03/14/19 03/14/19 03/14/19 16:00 16:00 16:05 RBC 4.08 L Hgb 12.3 L Hct 37.0 L RDW 15.2 H Potassium 5.1 H BUN 43 H Creatinine 3.83 H Est GFR ( Amer) 20 L Est GFR (MDRD) Non-Af 16 L Albumin 3.3 L Urine Protein >=500 H Urine Glucose (UA) 150 H Urine Blood SMALL H Discharge - Discharge Clinical Impression: Encounter for medical screening examination CKD (chronic kidney disease) Qualifiers: Chronic kidney disease stage: unspecified stage Qualified Code(s): N18.9 - Chronic kidney disease, unspecified Condition: Stable Disposition: HOME, SELF-CARE Additional Instructions: Your potassium was improved today, it was 5.1. Please follow-up with the nephro logist listed in 3 to 5 days. Please follow-up with your primary care doctor in 3 to 5 days. Return to ER for any worsening symptoms, including muscle weakness/paralysis, chest pain, shortness of breath, abdominal pain, nausea/vomiting, fever, or any other symptoms that are concerning to you. Referrals: DYLAN ABAD NP, [employer] POWDER MIXER OPERATOR [NURSE PRACTITIONER] - Follow up in 3-5 days PEGGY TORRES MD [ACTIVE STAFF] - Follow up in 3-5 days
[2019-03-14 18:01] VITALS: BP 171/107
--- NOTE | 2019-03-14 19:22 | EKG REPORT ---
SEVERITY:- ABNORMAL ECG - SINUS RHYTHM PROBABLE LEFT ATRIAL ABNORMALITY LEFT AXIS DEVIATION LVH WITH SECONDARY REPOLARIZATION ABNORMALITY : Confirmed by: Deonna Iniguez MD 14-Mar-2019 19:22:14
== END 2019-03-14 18:01 | disposition home or self-care (01) ==
LOC: ER 15:30
DX: E87.5 Hyperkalemia (principal); E11.22 Type 2 diabetes mellitus with diabetic chronic kidney disease; I13.0 Hypertensive heart and chronic kidney disease with heart failure and stage 1 through stage 4 chronic kidney disease, or unspecified chronic kidney disease; N18.3 Chronic kidney disease, stage 3 (moderate); I50.9 Heart failure, unspecified; E78.00 Pure hypercholesterolemia, unspecified
CPT/HCPCS: 36415; 80053; 81001; 83735; 85025; 93005; 93010; 99283

== ENCOUNTER → 2019-03-21 | Outpatient (CLI) | payer MEDICARE, MEDICAID, OTHER | LOC: OD 08:28 | PROVIDERS: ATTEND Internal Medicine Nephrology | DX: E87.5 Hyperkalemia (principal) | CPT/HCPCS: 36415; 84132 ==

== ENCOUNTER → 2019-04-04 | Outpatient (CLI) | payer MEDICARE, MEDICAID, OTHER ==
[2019-04-04 11:07] LABS: ANION GAP 8 (5-19); BLOOD UREA NITROGEN 24 mg/dL (7-20); CALCIUM 8.5 mg/dL (8.4-10.2); CARBON DIOXIDE 22 mmol/L (22-30); CHLORIDE 106 mmol/L (98-107); GLUCOSE 110 mg/dL (75-110); POTASSIUM 4.6 mmol/L (3.6-5.0)
== END ==
LOC: OD 10:07
PROVIDERS: ATTEND Family Medicine Geriatric Medicine
DX: E87.5 Hyperkalemia (principal); N18.3 Chronic kidney disease, stage 3 (moderate); Z79.899 Other long term (current) drug therapy
CPT/HCPCS: 36415; 80048

== ENCOUNTER → 2019-04-11 | Outpatient (CLI) | payer MEDICARE, MEDICAID, OTHER ==
[2019-04-11 09:25] LABS: ALBUMIN 2.8 g/dL (3.5-5.0); ANION GAP 9 (5-19); BLOOD UREA NITROGEN 25 mg/dL (7-20); CALCIUM 8.6 mg/dL (8.4-10.2); CARBON DIOXIDE 22 mmol/L (22-30); CHLORIDE 105 mmol/L (98-107); GLUCOSE 173 mg/dL (75-110); PHOSPHORUS 4.5 mg/dL (2.5-4.5); POTASSIUM 4.2 mmol/L (3.6-5.0)
[2019-04-11 09:31] LABS: URINE CREATININE 99.8 mg/dL (22-328)
[2019-04-11 11:34] LABS: UR PRO/CREAT RATIO RESULT 15.6 mg/mg (0.0-0.2); URINE PROTEIN 1560.3 mg/dL (<12)
== END ==
LOC: OD 08:07
PROVIDERS: ATTEND Internal Medicine Nephrology
DX: E11.22 Type 2 diabetes mellitus with diabetic chronic kidney disease (principal); I12.9 Hypertensive chronic kidney disease with stage 1 through stage 4 chronic kidney disease, or unspecified chronic kidney disease; N18.4 Chronic kidney disease, stage 4 (severe); R80.9 Proteinuria, unspecified; N25.81 Secondary hyperparathyroidism of renal origin; E55.9 Vitamin D deficiency, unspecified
CPT/HCPCS: 36415; 80069; 82570; 84156

== ENCOUNTER 2019-05-02 10:03 | Inpatient (IN) | payer MEDICARE, MEDICAID, OTHER ==
--- NOTE | 2019-05-02 10:18 | ER Document Report ---
ED Medical Screen (RME) - General Chief Complaint: Vomiting Stated Complaint: VOMITING/CHILLS Time Seen by Provider: 05/02/19 10:15 Primary Care Provider: PEGGY TORRES MD [Primary Care Provider] - Follow up as needed Mode of Arrival: Wheelchair Information source: Patient Notes: 58-year-old male presented to ED for cough cold congestion nausea vomiting and 1 loose stool,. He also has a elevated temperature of 102.3 with a pulse of 119 O2 sat of 92%. He does have a history of COPD's does not smoke cigarettes does drink 342 ounce beer a day. States the fever started during the night. Dates he has not traveled recently has not been anywhere around anyone that is sick and he just started this illness during the night. I have greeted and performed a rapid initial assessment of this patient. A comprehensive ED assessment and evaluation of the patient, analysis of test results and completion of medical decision making process will be conducted by an additional ED providers. TRAVEL OUTSIDE OF THE [place] IN LAST 30 DAYS: No - Related Data Allergies/Adverse Reactions: No Known Allergies Allergy (Verified 06/10/18 17:31) Past Medical History - Past Medical History Cardiac Medical History: Reports: Hx Congestive Heart Failure, Hx Hypercholesterolemia, Hx Hypertension Pulmonary Medical History: Reports: Hx COPD, Hx Pneumonia, Hx Respiratory Failure Neurological Medical History: Denies: Hx Seizures Endocrine Medical History: Reports: Hx Diabetes Mellitus Type 2. Denies: Hx Diabetes Mellitus Type 1, Hx Hyperthyroidism, Hx Hypothyroidism Renal/ Medical History: Reports: Hx End Stage Renal Disease. Denies: Hx Peritoneal Dialysis GI Medical History: Denies: Hx Cirrhosis, Hx Crohn's Disease, Hx Hepatitis, Hx Ulcerative Colitis Musculoskeltal Medical History: Reports Hx Arthritis, Denies Hx Gout, Reports Hx Musculoskeletal Deformity, Reports Hx Musculoskeletal Trauma Skin Medical History: Denies Hx Eczema, Denies Hx Psoriasis Psychiatric Medical History: Denies: Hx Depression Traumatic Medical History: Reports: Hx Fractures Infectious Medical History: Denies: Hx Hepatitis Past Surgical History: Reports: Hx Abdominal Surgery, Hx Orthopedic Surgery Doctor's Discharge - Discharge Referrals: PEGGY TORRES MD [Primary Care Provider] - Follow up as needed
[2019-05-02] MEDS ORDERED: RINGERS LACTATED IV ONE (10:19)
[2019-05-02] MEDS ORDERED: PIPERACILLIN/TAZOBACTAM 4.5 GM VIAL IV ONE (10:19)
[2019-05-02] MEDS ORDERED: ACETAMINOPHEN 325 MG TABLET PO ONE (10:19)
--- NOTE | 2019-05-02 10:52 | RADIOLOGY REPORT (SQ) ---
EXAM DESCRIPTION: CHEST 2 VIEWS COMPLETED DATE/TIME: 05/02/2019 10:33 am REASON FOR STUDY: Cough congestion fever COMPARISON: 06/10/2018 EXAM PARAMETERS: NUMBER OF VIEWS: two views TECHNIQUE: Digital Frontal and Lateral radiographic views of the chest acquired. RADIATION DOSE: NA LIMITATIONS: none FINDINGS: LUNGS AND PLEURA: Parenchymal opacities at the lung bases left greater than right. MEDIASTINUM AND HILAR STRUCTURES: Calcified hilar nodes. HEART AND VASCULAR STRUCTURES: Heart normal size. No evidence for failure. BONES: No acute findings. HARDWARE: None in the chest. OTHER: No other significant finding. IMPRESSION: Bibasilar pneumonitis. TECHNICAL DOCUMENTATION: JOB ID: [id number] 2010 [employer]- All Rights Reserved Reading location - IP/workstation name: [email or web address]
[2019-05-02] MEDS ORDERED: ONDANSETRON HCL INJ/PF 4 MG/2 ML SDV IV ONE (11:00)
[2019-05-02 11:20] LABS: VENOUS BLOOD BASE EXCESS -2.5 mmol/L; VENOUS BLOOD HCO3 22.4 mmol/L (20-32); VENOUS BLOOD PCO2 39.8 mmHg (35-63); VENOUS BLOOD PH 7.37 (7.30-7.42)
[2019-05-02 11:25] LABS: INTERNATIONAL RATION (INR) 0.95; PROTHROMBIN TIME 12.7 SEC (11.4-15.4)
[2019-05-02 11:33] LABS: HEMOGLOBIN 11.9 g/dL (13.5-17.0); MEAN CORPUSCULAR HEMOGLOBIN 30.4 pg (27.0-33.4); MEAN CORPUSCULAR HGB CONC 33.2 g/dL (32.0-36.0); MEAN CORPUSCULAR VOLUME 92 fl (80-97); PLATELET COUNT 342 10^3/uL (150-450); RED BLOOD COUNT 3.93 10^6/uL (4.35-5.55); RED CELL DISTRIBUTION WIDTH 15.6 % (11.5-14.0); WHITE BLOOD COUNT 14.9 10^3/uL (4.0-10.5)
[2019-05-02 11:34] LABS: ALBUMIN 3.2 g/dL (3.5-5.0); ALKALINE PHOSPHATASE 99 U/L (38-126); ANION GAP 11 (5-19); ASPARTATE AMINO TRANSFERASE 27 U/L (17-59); BILIRUBIN,TOTAL 0.7 mg/dL (0.2-1.3); BLOOD UREA NITROGEN 34 mg/dL (7-20); CALCIUM 8.7 mg/dL (8.4-10.2); CARBON DIOXIDE 22 mmol/L (22-30); CHLORIDE 101 mmol/L (98-107); GLUCOSE 107 mg/dL (75-110); POTASSIUM 4.3 mmol/L (3.6-5.0); TOTAL PROTEIN 6.8 g/dL (6.3-8.2)
[2019-05-02 12:00] LABS: ABSOLUTE LYMPHOCYTES# (MANUAL) 0.4 10^3/uL (0.5-4.7); ABSOLUTE MONOCYTES # (MANUAL) 0.3 10^3/uL (0.1-1.4); ANISOCYTOSIS SLIGHT; BAND NEUTROPHILS % (MANUAL) 1 % (3-5); BASOPHILS % (MANUAL) 1 % (0-2); EOSINOPHILS % (MANUAL) 0 % (0-6); LYMPHOCYTES % (MANUAL) 3 % (13-45); MONOCYTES % (MANUAL) 2 % (3-13); PLATELET CLUMPS PRESENT; PLATELET COMMENT ADEQUATE; SEGMENTED NEUTROPHILS % (MAN) 93 % (42-78); TOTAL CELLS COUNTED 100; TOXIC GRANULATION 1+
--- NOTE | 2019-05-02 12:06 | ER Document Report ---
ED General - General Chief Complaint: Nausea/Vomiting Stated Complaint: VOMITING/CHILLS Time Seen by Provider: 05/02/19 10:15 Primary Care Provider: PEGGY TRORES MD [Primary Care Provider] - Follow up as needed Mode of Arrival: Wheelchair Information source: Patient Notes: 58-year-old man presents to the emergency department with a history of fever chills, nausea vomiting, coughing and feeling poorly. The fever began last night. He is diabetic with a history of renal insufficiency, hypertension, CHF and CAD. TRAVEL OUTSIDE OF THE [place] IN LAST 30 DAYS: No - Related Data Allergies/Adverse Reactions: No Known Allergies Allergy (Verified 06/10/18 17:31) Past Medical History - General Information source: Patient - Social History Smoking Status: Never Smoker Frequency of alcohol use: Heavy Drug Abuse: None Family History: CAD, Hypertension, Malignancy. denies: DM Patient has suicidal ideation: No Patient has homicidal ideation: No - Past Medical History Cardiac Medical History: Reports: Hx Congestive Heart Failure, Hx Hypercholesterolemia, Hx Hypertension Pulmonary Medical History: Reports: Hx COPD, Hx Pneumonia, Hx Respiratory Failure Neurological Medical History: Denies: Hx Seizures Endocrine Medical History: Reports: Hx Diabetes Mellitus Type 2. Denies: Hx Diabetes Mellitus Type 1, Hx Hyperthyroidism, Hx Hypothyroidism Renal/ Medical History: Reports: Hx End Stage Renal Disease. Denies: Hx Perit thomas Dialysis GI Medical History: Denies: Hx Cirrhosis, Hx Crohn's Disease, Hx Hepatitis, Hx Ulcerative Colitis Musculoskeletal Medical History: Reports Hx Arthritis, Denies Hx Gout, Reports Hx Musculoskeletal Deformity, Reports Hx Musculoskeletal Trauma Skin Medical History: Denies Hx Eczema, Denies Hx Psoriasis Psychiatric Medical History: Denies: Hx Depression Traumatic Medical History: Reports: Hx Fractures Infectious Medical History: Denies: Hx Hepatitis Past Surgical History: Reports: Hx Abdominal Surgery, Hx Orthopedic Surgery - Immunizations Hx Pneumococcal Vaccination: 02/25/18 Review of Systems - Review of Systems Notes: Constitutional: +fever. HENT: Negative for sore throat. Eyes: Negative for visual changes. Cardiovascular: Negative for chest pain. Respiratory: + shortness of breath. Gastrointestinal: Negative for abdominal pain, vomiting or diarrhea. Genitourinary: Negative for dysuria. Musculoskeletal: Negative for back pain. Skin: Negative for rash. Neurological: Negative for headaches, weakness or numbness. 10 point ROS negative except as marked above and in HPI. Physical Exam - Vital signs Vitals: Temp Pulse Resp BP Pulse Ox 102.3 F H 119 H 22 H 182/87 H 92 05/02/19 10:17 05/02/19 10:17 05/02/19 10:17 05/02/19 10:17 05/02/19 10:17 - Notes Notes: PHYSICAL EXAMINATION: Physical Exam: General: Well-nourished well-developed 58-year-old man in no acute distress HEENT: NC/AT, pupils equal round and reactive to light, MM moist,nares clear, oropharynx clear, airway patent Neck: supple, no adenopathy, no masses. Good range of motion Lungs: clear, no wheezing, no rales no rhonchi CVS: Tachycardia rate and rhythm no murmur gallop or rub Abdomen: Soft, active, nontender, no masses, no hepatosplenomegaly Ext: 3+ edema bilateral lower extremity Neuro: Alert and responsive, moving all 4 extremities on command, cranial nerves intact, no focal findings Skin: Intact no open lesions, no rash PSYCH: Normal mood, normal affect. Course - Re-evaluation Re-evalutation: 05/02/19 13:40 Patient presents with fever history of a cough chest x-ray bilateral pneumonitis-like findings he received Zosyn, 30 mL/kilogram IV fluids, blood cultures and lactate. Lactate was 2.3, patient temperature has defervesced and he is feeling better. He will be admitted to the hospital for possible sepsis, possible pneumonia, possible viral syndrome. I discussed the patient with the hospitalist, Dr. Davis states that he will see the patient in the emergency department to determine admission status and location. - Vital Signs Vital signs: Temp Pulse Resp BP Pulse Ox 100 F 119 H 19 177/89 H 100 05/02/19 12:50 05/02/19 10:17 05/02/19 14:01 05/02/19 14:04 05/02/19 14:01 - Laboratory Result Diagrams: 05/02/19 10:50 05/02/19 10:50 Laboratory results interpreted by me: 05/02/19 05/02/19 05/02/19 10:50 10:50 10:50 WBC 14.9 H RBC 3.93 L Hgb 11.9 L Hct 36.0 L RDW 15.6 H Seg Neuts % (Manual) 93 H Band Neutrophils % 1 L Lymphocytes % (Manual) 3 L Monocytes % (Manual) 2 L Abs Neuts (Manual) 14.0 H Abs Lymphs (Manual) 0.4 L Sodium 134.3 L BUN 34 H Creatinine 3.47 H Est GFR ( Amer) 22 L Est GFR (MDRD) Non-Af 18 L Lactic Acid 2.8 H Albumin 3.2 L Urine Protein Urine Glucose (UA) Urine Blood 05/02/19 12:48 WBC RBC Hgb Hct RDW Seg Neuts % (Manual) Band Neutrophils % Lymphocytes % (Manual) Monocytes % (Manual) Abs Neuts (Manual) Abs Lymphs (Manual) Sodium BUN Creatinine Est GFR ( Amer) Est GFR (MDRD) Non-Af Lactic Acid Albumin Urine Protein >=500 H Urine Glucose (UA) 150 H Urine Blood SMALL H 05/02/19 13:42 I have reviewed laboratory data and used this information for the treatment decisions regarding the patient. - Diagnostic Test Radiology reviewed: Image reviewed, Reports reviewed - Chest x-ray: No acute infiltrates noted, no effusion. - EKG Interpretation by Nc EKG shows normal: Sinus rhythm - Rate of 74 Rhythm: PVC's - Multiple Fellows/QRS: LBBB - Abnormal EKG. Discharge - Discharge Clinical Impression: Lactic acidemia, Pneumonitis, Enteritis Fever Qualifiers: Fever type: unspecified Qualified Code(s): R50.9 - Fever, unspecified Nausea and vomiting Qualifiers: Vomiting type: unspecified Vomiting Intractability: non-intractable Qualified Code(s): R11.2 - Nausea with vomiting, unspecified Condition: Good Disposition: ADMITTED OBSERVATION Admitting Provider: Susan (Hospitalist) Unit Admitted: Telemetry Referrals: PEGGY TORRES MD [Primary Care Provider] - Follow up as needed
[2019-05-02 12:43] LABS: A TYPE INFLUENZA AG NEGATIVE (NEGATIVE); B INFLUENZA AG NEGATIVE (NEGATIVE)
[2019-05-02 13:31] LABS: APPEARANCE,URINE SLIGHTLY-CLOUDY; BILIRUBIN,URINE NEGATIVE (NEGATIVE); COLOR,URINE YELLOW; GLUCOSE, URINE 150 mg/dL (NEGATIVE); KETONES,URINE NEGATIVE (NEGATIVE); LEUKOCYTE ESTERASE,URINE NEGATIVE (NEGATIVE); NITRITE,URINE NEGATIVE (NEGATIVE); PROTEIN,URINE >=500 mg/dL (NEGATIVE); URINE SPECIFIC GRAVITY 1.014; UROBILINOGEN,URINE NEGATIVE mg/dL (<2.0)
--- NOTE | 2019-05-02 14:43 | EKG REPORT ---
SEVERITY:- ABNORMAL ECG - SINUS TACHYCARDIA LVH WITH SECONDARY REPOLARIZATION ABNORMALITY ST DEPRESSION, CONSIDER ISCHEMIA, ANT-LAT LDS BORDERLINE PROLONGED QT INTERVAL : Confirmed by: Jonn Steele MD 02-May-2019 14:42:09
[2019-05-02] MEDS ORDERED: ACETAMINOPHEN 325 MG TABLET PO PRN (15:26)
--- NOTE | 2019-05-02 16:10 | PDOC H&P ---
History of Present Illness Admission Date/PCP: 05/02/19 15:34 PEGGY TORRES MD History of Present Illness: JARED HORVATH JR is a 58 year old male with a history of chronic kidney disease stage III-IV, [id number] diabetes mellitus, hypertension, and congestive heart failure, last echocardiogram approximately 1 year ago, EF 40 to 45%, mildly reduced right ventricular systolic function, pulmonary hypertension with RVSP of 50 to 55 mmHg. He presents to the ER today after experiencing nausea and vomiting which started early this morning, around 0130 hours. He said it has mostly been saliva and "stomach juice." He said he has had several episodes of this, he thinks 8 or 9 times total. He is starting to have some loose stool as well. He has not taken his medications today. He said that prior to this he was in his usual state of health. He said he has had some fa matthew over at his house the last few days and he went out to the grocery store but he does not know that he is been around anyone he knows to be sick. He said he felt like he had a little bit of shortness of breath last night but none today. He did have a fever when he first came into the ER. He is gotten about 3 L of fluid at this point. He has not had any cough or chest congestion. He has not had any recent travel. He said right now he actually feels a lot better. He got some antiemetics in the ER and he says those have really helped him. He has a lot of swelling around his ankles and some bibasilar crackles on examination. He had a chest x-ray which was read as a bibasilar pneumonitis but the indication for examination included cough and congestion, both of which the patient denied to me. Past Medical History Cardiac Medical History: Reports: Congestive Heart Failure, Hyperlipidema, Hypertension Pulmonary Medical History: Reports: Chronic Obstructive Pulmonary Disease (COPD), Pneumonia, Respiratory Failure Neurological Medical History: Denies: Seizures Endocrine Medical History: Reports: Diabetes Mellitus Type 2 Denies: Diabetes Mellitus Type 1, Hyperthyroidism, Hypothyroidism Renal/ Medical History: Reports: End Stage Renal Disease GI Medical History: Denies: Cirrhosis, Crohn's Disease, Hepatitis, Ulcerative Colitis Musculoskeltal Medical History: Reports: Arthritis Denies: Gout Skin Medical History: Denies: Eczema, Psoriasis Psychiatric Medical History: Denies: Depression Hematology: Denies: Anemia, Bleeding Tendencies Past Surgical History Past Surgical History: Reports: Orthopedic Surgery Social History Smoking Status: Never Smoker Frequency of Alcohol Use: Heavy Hx Recreational Drug Use: No Drugs: None Hx Prescription Drug Abuse: No Family History Family History: CAD, Hypertension, Malignancy. denies: DM Parental Family History Reviewed: Yes Children Family History Reviewed: Yes Sibling(s) Family History Reviewed.: Yes Medication/Allergy Home Medications: Aspirin [Ecotrin 81 mg EC Tablet] 81 mg PO DAILY 12/12/18 Atorvastatin Calcium [Lipitor 40 mg Tablet] 40 mg PO QHS 12/12/18 Glipizide [Glipizide Xl] 5 mg PO WBRKFST 12/12/18 Losartan Potassium [Cozaar 50 mg Tablet] 50 mg PO DAILY 12/12/18 Amlodipine Besylate [Norvasc 10 mg Tablet] 10 mg PO DAILY #30 tablet 12/15/18 Torsemide [Demadex 20 mg Tablet] 20 mg PO BID #60 tablet 12/15/18 Allergies/Adverse Reactions: No Known Allergies Allergy (Verified 06/10/18 17:31) Review of Systems All systems: reviewed and no additional remarkable complaints except as stated - All systems were reviewed and were negative except as noted in the HPI Physical Exam Vital Signs: Temp Pulse Resp BP Pulse Ox 100 F 119 H 19 177/89 H 100 05/02/19 12:50 05/02/19 10:17 05/02/19 14:01 05/02/19 14:04 05/02/19 14:01 Intake & Output 05/01/19 05/02/19 05/03/19 06:59 06:59 07:59 Weight 122.2 kg General appearance: PRESENT: no acute distress, cooperative, disheveled, morbidly obese Head exam: PRESENT: atraumatic, normocephalic Eye exam: PRESENT: EOMI, PERRLA. ABSENT: conjunctival injection, nystagmus, scleral icterus Ear exam: PRESENT: normal external ear exam Mouth exam: PRESENT: dry mucosa, neck supple Throat exam: ABSENT: post pharyngeal erythema Neck exam: PRESENT: full ROM. ABSENT: carotid bruit, JVD, lymphadenopathy, meningismus, tenderness, thyromegaly Respiratory exam: PRESENT: crackles - Bibasilar, symmetrical, unlabored. ABSENT: accessory muscle use, chest wall tenderness, decreased breath sounds, prolonged expiratory phas, retraction, rhonchi, tachypnea, wheezes Cardiovascular exam: PRESENT: +S1, +S2, tachycardia Pulses: PRESENT: normal carotid pulses Vascular exam: PRESENT: normal capillary refill GI/Abdominal exam: PRESENT: normal bowel sounds, soft. ABSENT: distended, guarding, rebound, tenderness Extremities exam: PRESENT: pedal edema, other - 3+ pitting edema bilateral lower extremities distal to the knee. ABSENT: clubbing Musculoskeletal exam: PRESENT: ambulatory, normal inspection. ABSENT: deformity Neurological exam: PRESENT: alert, awake, oriented to person, oriented to place, oriented to time, oriented to situation, CN II-XII grossly intact. ABSENT: motor sensory deficit Psychiatric exam: PRESENT: appropriate affect, normal mood Skin exam: PRESENT: dry, warm Results Laboratory Results: 05/02/19 10:50 05/02/19 10:50 05/02/19 05/02/19 05/02/19 10:50 10:50 10:50 WBC 14.9 H RBC 3.93 L Hgb 11.9 L Hct 36.0 L MCV 92 MCH 30.4 MCHC 33.2 RDW 15.6 H Plt Count 342 Seg Neutrophils % Not Reportable VBG pH 7.37 VBG pCO2 39.8 VBG HCO3 22.4 VBG Base Excess -2.5 Sodium 134.3 L Potassium 4.3 Chloride 101 Carbon Dioxide 22 Anion Gap 11 BUN 34 H Creatinine 3.47 H Est GFR ( Amer) 22 L Glucose 107 Lactic Acid Calcium 8.7 Total Bilirubin 0.7 AST 27 Alkaline Phosphatase 99 Total Protein 6.8 Albumin 3.2 L Urine Color Urine Appearance Urine pH Ur Specific [place] Urine Protein Urine Glucose (UA) Urine Ketones Urine Blood Urine Nitrite Ur Leukocyte Esterase Urine WBC (Auto) Urine RBC (Auto) 05/02/19 05/02/19 05/02/19 10:50 12:48 13:30 WBC RBC Hgb Hct MCV MCH MCHC RDW Plt Count Seg Neutrophils % VBG pH VBG pCO2 VBG HCO3 VBG Base Excess Sodium Potassium Chloride Carbon Dioxide Anion Gap BUN Creatinine Est GFR ( Amer) Glucose Lactic Acid 2.8 H 1.1 Calcium Total Bilirubin AST Alkaline Phosphatase Total Protein Albumin Urine Color YELLOW Urine Appearance SLIGHTLY-CLOUDY Urine pH 6.0 Ur Specific [place] 1.014 Urine Protein >=500 H Urine Glucose (UA) 150 H Urine Ketones NEGATIVE Urine Blood SMALL H Urine Nitrite NEGATIVE Ur Leukocyte Esterase NEGATIVE Urine WBC (Auto) 4 Urine RBC (Auto) 4 Impressions: Chest X-Ray 05/02/19 10:19 IMPRESSION: Bibasilar pneumonitis. Assessment and Plan - Diagnosis (1) Gastroenteritis Is this a current diagnosis for this admission?: Yes Plan: He is gotten some IV fluids and I definitely do not think he needs any more than that. We will give him some antiemetics and encourage p.o. intake. (2) Chronic kidney disease, stage III (moderate) Is this a current diagnosis for this admission?: Yes Plan: His creatinine is not too far off his usual range. His passenger car upholsterer apprentice is Dr. Torres. (3) Hypertension Qualifiers: Hypertension type: essential hypertension Qualified Code(s): I10 - Essential (primary) hypertension Is this a current diagnosis for this admission?: Yes Plan: He did not take his blood pressure medication this morning. We will get him back on his usual medications and monitor his pressures. (4) Type 2 diabetes mellitus Qualifiers: Diabetes mellitus custodial insulin use: without glass cut off tender use Diabetes mellitus complication status: with kidney complications Diabetes mellitus complication detail: with chronic kidney disease Chronic kidney disease stage: stage 3 (moderate) Qualified Code(s): E11.22 - Type 2 diabetes mellitus with diabetic chronic kidney disease; N18.3 - Chronic kidney disease, stage 3 (moderate) Is this a current diagnosis for this admission?: Yes Plan: We will continue his glipizide and put him on a consistent carbohydrate diet. (5) CHF (congestive heart failure) Qualifiers: Heart failure type: combined systolic and diastolic Heart failure chronic ity: chronic Qualified Code(s): I50.42 - Chronic combined systolic (congestive) and diastolic (congestive) heart failure Is this a current diagnosis for this admission?: Yes Plan: I do not know if the chest x-ray was taken before he got fluids or after. He is got about 3 L of fluid in the ER. He definitely has some bibasilar crackles on exam and lower extremity edema. I am sure that at least some of the edema was present on examination, but I do not know how much of that he normally carries. I am not going to give him any more fluids and will resume his twice daily torsemide along with his other home medications for his chronic congestive heart failure. His janitor custodian is Dr. Iniguez - Time Time Spent with patient: 35 or more minutes
[2019-05-02] MEDS: ONDANSETRON HCL INJ/PF 4 MG/2 ML SDV IV PRN ×2 (17:35→22:05)
[2019-05-02] MEDS ORDERED: GLUCAGON,HUMAN RECOMB 1 MG INJ IM PRN (20:01)
[2019-05-02] MEDS ORDERED: DEXTROSE 40% GEL 15 GM TUBE PO PRN ×2 (20:01)
[2019-05-02] MEDS ORDERED: DEXTROSE 50%-WATER 25 GM/50 ML DISP.SYRIN IV PRN ×2 (20:01)
[2019-05-02] MEDS: HEPARIN SOD (PORCINE) 5,000 UNIT/ML 1 ML VIAL SUBCUT SCH (21:09)
[2019-05-02] MEDS ORDERED: ATORVASTATIN CALCIUM 40 MG TABLET PO SCH (22:00)
[2019-05-02] MEDS ORDERED: FUROSEMIDE INJ/PF 40 MG/4 ML SDV ONE (22:23)
[2019-05-02] MEDS ORDERED: METHYLPREDNISOLONE INJ 125 MG/2 ML SDV ONE (22:23)
[2019-05-02] MEDS ORDERED: FUROSEMIDE 40 MG TABLET PO ONE (22:30)
[2019-05-02] MEDS ORDERED: PROPOFOL INJ 200 MG/20 ML VIAL IV ONE ×3 (22:46→23:20)
[2019-05-02] MEDS ORDERED: ETOMIDATE INJ/PF 20 MG/10 ML SDV IV ONE ×2 (22:48→23:08)
[2019-05-02] MEDS ORDERED: FUROSEMIDE INJ/PF 40 MG/4 ML SDV IV ONE (23:00)
[2019-05-02] MEDS ORDERED: METHYLPREDNISOLONE INJ 125 MG/2 ML SDV IV ONE (23:00)
[2019-05-02] MEDS ORDERED: PROPOFOL 1,000 MG/100 ML INFUS..BTL IV ONE (23:21)
[2019-05-02] MEDS ORDERED: CEFEPIME 1 GM/D5W RTU 1 GM/50 ML RTUPB IV SCH (23:45)
[2019-05-02] MEDS: IPRATROPIUM/ALBUTEROL 0.5-2.5 MG/3 ML AMPUL NEB SCH (23:54)
[2019-05-03] MEDS ORDERED: MIDAZOLAM HCL 50 MG/100 ML RTUINJ ONE (00:05)
--- NOTE | 2019-05-03 00:06 | RADIOLOGY REPORT (SQ) ---
EXAM DESCRIPTION: XR CHEST 1 VIEW COMPLETED DATE/TME: 05/02/2019 00:00 CLINICAL HISTORY: 58 years, Male, check ETT and NGT COMPARISON: 12/11/2018 chest NUMBER OF VIEWS: 1 TECHNIQUE: Portable chest LIMITATIONS: None. FINDINGS: Endotracheal tube with the tip approximately 7 cm above the payton. Enteric tube, the distal tip extends into the upper abdomen but is not well seen. Extensive airspace opacities bilaterally. No pneumothorax. Cardiomegaly. Calcified mediastinal lymph nodes IMPRESSION: Cardiomegaly with extensive bilateral airspace opacities. Endotracheal and enteric tubes in place, as above copyright 2010 [employer]- All Rights Reserved
[2019-05-03] MEDS: CEFEPIME 1 GM/D5W RTU 1 GM/50 ML RTUPB IV SCH ×2 (00:47→23:11)
[2019-05-03] MEDS ORDERED: DEXTROSE 50%-WATER 25 GM/50 ML DISP.SYRIN IV PRN ×2 (00:50)
[2019-05-03] MEDS ORDERED: GLUCAGON,HUMAN RECOMB 1 MG INJ IM PRN (00:50)
[2019-05-03] MEDS ORDERED: DEXTROSE 40% GEL 15 GM TUBE PO PRN ×2 (00:50)
[2019-05-03 01:17] LABS: HEMOGLOBIN 11.3 g/dL (13.5-17.0); MEAN CORPUSCULAR HEMOGLOBIN 31.5 pg (27.0-33.4); MEAN CORPUSCULAR HGB CONC 34.3 g/dL (32.0-36.0); MEAN CORPUSCULAR VOLUME 92 fl (80-97); PLATELET COUNT 300 10^3/uL (150-450); RED BLOOD COUNT 3.59 10^6/uL (4.35-5.55); RED CELL DISTRIBUTION WIDTH 15.7 % (11.5-14.0); WHITE BLOOD COUNT 6.4 10^3/uL (4.0-10.5)
[2019-05-03 01:21] LABS: ARTERIAL BLOOD BASE EXCESS -8.3 mmol/L; ARTERIAL BLOOD H2CO3 1.84 mmol/L (1.05-1.35); ARTERIAL BLOOD HCO3 21.1 mmol/L (20-24); ARTERIAL BLOOD O2 SATURATION 72.9 % (94-98); ARTERIAL BLOOD PCO2 61.2 mmHg (35-45); ARTERIAL BLOOD PO2 49.2 mmHg (80-100)
[2019-05-03 01:23] LABS: ARTERIAL BLOOD FIO2 15L; ARTERIAL BLOOD PH 7.16 (7.35-7.45)
[2019-05-03] MEDS ORDERED: PROPOFOL 1,000 MG/100 ML INFUS..BTL IV ONE (01:32)
[2019-05-03 01:42] LABS: ALBUMIN 2.6 g/dL (3.5-5.0); ALKALINE PHOSPHATASE 82 U/L (38-126); ANION GAP 12 (5-19); ASPARTATE AMINO TRANSFERASE 32 U/L (17-59); BILIRUBIN,DIRECT 0.5 mg/dL (0.0-0.4); BILIRUBIN,TOTAL 1.1 mg/dL (0.2-1.3); BLOOD UREA NITROGEN 38 mg/dL (7-20); CALCIUM 8.3 mg/dL (8.4-10.2); CARBON DIOXIDE 19 mmol/L (22-30); CHLORIDE 103 mmol/L (98-107); GLUCOSE 206 mg/dL (75-110); PHOSPHORUS 5.8 mg/dL (2.5-4.5); POTASSIUM 4.7 mmol/L (3.6-5.0); TOTAL PROTEIN 6.2 g/dL (6.3-8.2)
[2019-05-03 01:56] LABS: INTERNATIONAL RATION (INR) 1.07; PARTIAL THROMBOPLASTIN TIME 33.6 SEC (23.5-35.8); PROTHROMBIN TIME 13.9 SEC (11.4-15.4)
[2019-05-03 03:07] LABS: ARTERIAL BLOOD BASE EXCESS -4.6 mmol/L; ARTERIAL BLOOD H2CO3 1.07 mmol/L (1.05-1.35); ARTERIAL BLOOD HCO3 20.1 mmol/L (20-24); ARTERIAL BLOOD O2 SATURATION 95.8 % (94-98); ARTERIAL BLOOD PCO2 35.5 mmHg (35-45); ARTERIAL BLOOD PH 7.37 (7.35-7.45); ARTERIAL BLOOD PO2 81.2 mmHg (80-100); ARTERIAL BLOOD TOTAL CO2 21.2 mmol/L (23-27)
[2019-05-03 03:10] LABS: ARTERIAL BLOOD FIO2 80%
--- NOTE | 2019-05-03 03:21 | CRITICAL CARE ADMISSION REPORT ---
[facility] Date:: 05/03/19 Time:: 00:10 Reason for ICU Reason:: Respiratory Failure HPI: 58-year-old gentleman with a history of CKD III-IV, COPD, DM 2, HTN, CHF-last echocardiogram was approximately 1 year ago, EF 40 to 45%, pulmonary hypertension with RVSP of 50 to 55 mmHg. Patient was admitted on 05/02/2019 with a history of nausea and vomiting as well as loose stool. He was febrile in the ED. 3 L of fluid were given in the ED for his history of nausea and vomiting. CXR showed bibasilar pneumonitis. Patient was admitted for cough and congestion and his respiratory status began to decline. A rapid response was called late in the evening. When I responded to the RETAIL MARKETING MANAGER, he had severe labored breathing, and was intermittently unresponsive. SPO2 was in the 60s on 100% nonrebreather. Patient was emergently intubated, sedated and admitted to the intensive care unit for acute respiratory failure. Patient required a high dose of propofol and etomidate for intubation. - Diagnosis/Plan (1) Acute pulmonary edema with congestive heart failure Is this a current diagnosis for this admission?: Yes Plan: Pulmonary edema was evident during intubation and seen on subsequent CXR. Continue Lasix 40 IV daily. Follow renal panel as well as proBNP. (2) Chronic kidney disease, stage III (moderate) Is this a current diagnosis for this admission?: Yes Plan: Follow-up renal panel. Continue Lasix this morning Renal dose medications as needed. Creatinine: 3.41, GFR 22. (3) Type 2 diabetes mellitus Qualifiers: Diabetes mellitus fdc insulin use: without fdc use Diabetes mellitus complication status: with kidney complications Diabetes mellitus complication detail: with chronic kidney disease Chronic kidney disease stage: stage 3 (moderate) Qualified Code(s): E11.22 - Type 2 diabetes mellitus with diabetic chronic kidney disease; N18.3 - Chronic kidney disease, stage 3 (moderate) Is this a current diagnosis for this admission?: Yes Plan: Insulin sliding scale Accu-Cheks every 6 hours. (4) ETOH abuse Is this a current diagnosis for this admission?: Yes Plan: Patient has a significant heavy drinking history Follow for signs of DT Start Ativan as needed. - . Plan Summary: Mr. Garay has acute respiratory failure secondary to CKD, pulmonary hypertension and CHF. Despite bag mask ventilation, maintaining an SPO2 greater than 90% was difficult prior to intubation. Overall plan for his respiratory failure will be to continue ventilatory support, continue aggressive diuresis while monitoring his renal function and empirically treat for pneumonia while awaiting sputum cultures. We will plan to repeat his echocardiogram during this admission. Past Medical History Cardiac Medical History: Reports: Congestive Heart Failure, Hyperlipidema, Hypertension Pulmonary Medical History: Reports: Chronic Obstructive Pulmonary Disease (COPD), Pneumonia, Respiratory Failure Denies: Asthma, Bronchitis, Tuberculosis Pulmonary History Note: History of COPD by patient's report. No history of smoking, no PFTs on record, no history of chest CT. Neurological Medical History: Denies: Seizures Endocrine Medical History: Reports: Diabetes Mellitus Type 2 Denies: Diabetes Mellitus Type 1, Hyperthyroidism, Hypothyroidism Renal/ Medical History: Denies: End Stage Renal Disease GI Medical History: Denies: Cirrhosis, Crohn's Disease, Gastroesophageal Reflux Disease, Hep atitis, Ulcerative Colitis Musculoskeltal Medical History: Denies: Arthritis, Gout Skin Medical History: Denies: Eczema, Psoriasis Psychiatric Medical History: Denies: Bipolar Disorder, Depression Hematology: Denies: Anemia, Bleeding Tendencies Past Surgical History Past Surgical History: Midline incisional scar indicative of remote abdominal surgery. Unable to obtain proper history regarding prior surgeries. Past Surgical History: Reports: Orthopedic Surgery Social/Family History - Social History Smoking Status: Never Smoker Frequency of Alcohol Use: Heavy Hx Recreational Drug Use: No Drugs: None Hx Prescription Drug Abuse: No - Medication/Allergies Home Medications: Aspirin [Ecotrin 81 mg EC Tablet] 81 mg PO DAILY 12/12/18 Atorvastatin Calcium [Lipitor 40 mg Tablet] 40 mg PO QHS 12/12/18 Glipizide [Glipizide Xl] 10 mg PO WBRKFST 12/12/18 Amlodipine Besylate [Norvasc 10 mg Tablet] 10 mg PO DAILY #30 tablet 12/15/18 Ergocalciferol (Vitamin D2) [Vitamin D2] 50 mcg PO MO@1000 05/02/19 Furosemide [Lasix 40 mg Tablet] 40 mg PO QAM 05/02/19 Metoprolol Succinate [Toprol Xl 25 mg Tab.sr] 25 mg PO DAILY 05/02/19 Torsemide [Demadex 20 mg Tablet] 40 mg PO DAILY 05/02/19 Valsartan 320 mg PO DAILY 05/02/19 Allergies/Adverse Reactions: No Known Allergies Allergy (Verified 06/10/18 17:31) Review of Systems ROS unobtainable: Due to endotracheal tube Physical Exam Vital Signs: Temp Pulse Resp BP Pulse Ox 99.0 F 114 H 34 H 158/75 H 94 05/02/19 19:26 05/02/19 23:54 05/03/19 01:00 05/03/19 00:58 05/03/19 01:00 Intake & Output 05/01/19 05/02/19 05/03/19 06:59 06:59 07:59 Intake Total 3670 Output Total 335 Balance 3335 Weight 126.6 kg Weight/Height Weight 126.6 kg Height 6 ft 4 in General appearance: PRESENT: obese, severe distress Teeth exam: PRESENT: other - Edentulous upper Throat exam: PRESENT: post pharyngeal erythema, tonsillar erythema Respiratory exam: PRESENT: accessory muscle use, rales, rhonchi, tachypnea Cardiovascular exam: PRESENT: RRR, +S1, +S2 Pulses: PRESENT: normal carotid pulses GI/Abdominal exam: PRESENT: distended, firm Gentrourinary exam: PRESENT: indwelling catheter Extremities exam: PRESENT: pedal edema, other - Bilateral lower extremity edema, severe, chronic. Tubes/Lines: PRESENT: Endotracheal Tube, Other - Oral gastric tube. Laboratory/Radiographs Laboratory Results: 05/03/19 01:03 05/02/19 05/02/19 05/02/19 10:50 10:50 10:50 WBC 14.9 H RBC 3.93 L Hgb 11.9 L Hct 36.0 L MCV 92 MCH 30.4 MCHC 33.2 RDW 15.6 H Plt Count 342 Seg Neutrophils % Not Reportable Carbonic Acid HCO3/H2CO3 Ratio ABG pH ABG pCO2 ABG pO2 ABG HCO3 ABG O2 Saturation ABG Base Excess VBG pH 7.37 VBG pCO2 39.8 VBG HCO3 22.4 VBG Base Excess -2.5 FiO2 Sodium 134.3 L Potassium 4.3 Chloride 101 Carbon Dioxide 22 Anion Gap 11 BUN 34 H Creatinine 3.47 H Est GFR ( Amer) 22 L Glucose 107 Lactic Acid Calcium 8.7 Total Bilirubin 0.7 AST 27 Alkaline Phosphatase 99 Total Protein 6.8 Albumin 3.2 L Urine Color Urine Appearance Urine pH Ur Specific [place] Urine Protein Urine Glucose (UA) Urine Ketones Urine Blood Urine Nitrite Ur Leukocyte Esterase Urine WBC (Auto) Urine RBC (Auto) 05/02/19 05/02/19 05/02/19 10:50 12:48 13:30 WBC RBC Hgb Hct MCV MCH MCHC RDW Plt Count Seg Neutrophils % Carbonic Acid HCO3/H2CO3 Ratio ABG pH ABG pCO2 ABG pO2 ABG HCO3 ABG O2 Saturation ABG Base Excess VBG pH VBG pCO2 VBG HCO3 VBG Base Excess FiO2 Sodium Potassium Chloride Carbon Dioxide Anion Gap BUN Creatinine Est GFR ( Amer) Glucose Lactic Acid 2.8 H 1.1 Calcium Total Bilirubin AST Alkaline Phosphatase Total Protein Albumin Urine Color YELLOW Urine Appearance SLIGHTLY-CLOUDY Urine pH 6.0 Ur Specific [place] 1.014 Urine Protein >=500 H Urine Glucose (UA) 150 H Urine Ketones NEGATIVE Urine Blood SMALL H Urine Nitrite NEGATIVE Ur Leukocyte Esterase NEGATIVE Urine WBC (Auto) 4 Urine RBC (Auto) 4 05/02/19 05/02/19 05/03/19 16:25 22:41 01:03 WBC 6.4 RBC 3.59 L Hgb 11.3 L Hct 33.0 L MCV 92 MCH 31.5 MCHC 34.3 RDW 15.7 H Plt Count 300 Seg Neutrophils % Carbonic Acid 1.84 H HCO3/H2CO3 Ratio 11:1 ABG pH 7.16 L* ABG pCO2 61.2 H ABG pO2 49.2 L ABG HCO3 21.1 ABG O2 Saturation 72.9 L ABG Base Excess -8.3 VBG pH VBG pCO2 VBG HCO3 VBG Base Excess FiO2 15L Sodium Potassium Chloride Carbon Dioxide Anion Gap BUN Creatinine Est GFR ( Amer) Glucose Lactic Acid 2.7 H Calcium Total Bilirubin AST Alkaline Phosphatase Total Protein Albumin Urine Color Urine Appearance Urine pH Ur Specific [place] Urine Protein Urine Glucose (UA) Urine Ketones Urine Blood Urine Nitrite Ur Leukocyte Esterase Urine WBC (Auto) Urine RBC (Auto) Impressions: Chest X-Ray 05/02/19 10:19 IMPRESSION: Bibasilar pneumonitis. All labs, radiographs, diagnostic studies and EKGs were personally reviewed: Yes In addition, reports of radiographic and diagnostic studies were read: Yes Critical Time Critical Time (minutes): 75 -: The care of a critically ill patient is dynamic. This note represents a static moment in the admission process. Orders and treatments may be given simultaneously and urgently, and time is not wire rope sales representative of the treatment process. This patient requires Critical Care secondary to life threatening organ or limb dysfunction. Without Critical Care services, the patient is at risk for increased mortality and morbidity.
[2019-05-03] MEDS ORDERED: LORAZEPAM INJ 2 MG/1 ML VIAL IV PRN (03:23)
[2019-05-03] MEDS: INSULIN REG, HUMAN 100 UNIT/ML 3 ML VIAL (PYX) SUBCUT SCH ×5 (03:28→23:11)
[2019-05-03] MEDS: IPRATROPIUM/ALBUTEROL 0.5-2.5 MG/3 ML AMPUL NEB SCH ×6 (04:44→23:54)
[2019-05-03] MEDS: MIDAZOLAM HCL 50 MG/100 ML RTUINJ IV PRN ×3 (04:49→14:00)
[2019-05-03] MEDS: PROPOFOL 1,000 MG/100 ML INFUS..BTL IV PRN ×6 (05:09→21:09)
[2019-05-03] MEDS: HEPARIN SOD (PORCINE) 5,000 UNIT/ML 1 ML VIAL SUBCUT SCH ×2 (05:12→13:12)
[2019-05-03] MEDS ORDERED: VANCOMYCIN HCL INJ 1000 MG VIAL IV SCH (06:00)
[2019-05-03] MEDS ORDERED: INSULIN REG, HUMAN 100 UNIT/ML 3 ML VIAL (PYX) SUBCUT SCH (08:00)
[2019-05-03] MEDS ORDERED: GLIPIZIDE XL 5 MG TAB.ER.24 PO SCH (08:00)
[2019-05-03] MEDS ORDERED: TORSEMIDE 20 MG TABLET PO SCH (10:00)
[2019-05-03] MEDS ORDERED: METOPROLOL SUCCINATE 25 MG TAB.SR.24H PO SCH (10:00)
[2019-05-03] MEDS ORDERED: VALSARTAN 160 MG TABLET PO SCH (10:00)
[2019-05-03] MEDS ORDERED: ASPIRIN 81 MG TABLET, ENT COATED PO SCH (10:00)
[2019-05-03] MEDS ORDERED: AMLODIPINE BESYLATE 10 MG TABLET PO SCH (10:00)
[2019-05-03] MEDS ORDERED: DEXTROSE 40% GEL 15 GM TUBE NG PRN ×2 (11:00)
[2019-05-03] MEDS ORDERED: ACETAMINOPHEN 325 MG TABLET NG PRN (11:00)
[2019-05-03] MEDS: METOPROLOL TARTRATE 25 MG TABLET NG SCH ×2 (13:12→21:09)
--- NOTE | 2019-05-03 17:02 | Progress Note ---
Provider Note Provider Note: Gastroccult positive. Holding aspirin, heparin. Start Protonix 40 mg IV q 12 hr for now.
[2019-05-03] MEDS: GLIPIZIDE 5 MG TABLET NG SCH (17:53)
[2019-05-03] MEDS ORDERED: FUROSEMIDE 40 MG TABLET PO SCH (18:00)
[2019-05-03] MEDS: ATORVASTATIN CALCIUM 40 MG TABLET NG SCH (21:09)
[2019-05-03] MEDS: PANTOPRAZOLE SODIUM 40 MG VIAL IV SCH (21:09)
[2019-05-04 04:23] LABS: HEMATOCRIT 27.3 % (37.9-51.0); HEMOGLOBIN 9.3 g/dL (13.5-17.0); MEAN CORPUSCULAR HEMOGLOBIN 31.3 pg (27.0-33.4); MEAN CORPUSCULAR HGB CONC 34.1 g/dL (32.0-36.0); MEAN CORPUSCULAR VOLUME 92 fl (80-97); PLATELET COUNT 307 10^3/uL (150-450); RED BLOOD COUNT 2.98 10^6/uL (4.35-5.55); RED CELL DISTRIBUTION WIDTH 15.5 % (11.5-14.0)
[2019-05-04] MEDS: IPRATROPIUM/ALBUTEROL 0.5-2.5 MG/3 ML AMPUL NEB SCH ×5 (04:31→20:08)
[2019-05-04 04:32] LABS: WHITE BLOOD COUNT 15.1 10^3/uL (4.0-10.5)
[2019-05-04 04:41] LABS: ANION GAP 8 (5-19); BLOOD UREA NITROGEN 54 mg/dL (7-20); CARBON DIOXIDE 23 mmol/L (22-30); CHLORIDE 102 mmol/L (98-107); GLUCOSE 179 mg/dL (75-110); POTASSIUM 4.6 mmol/L (3.6-5.0)
[2019-05-04] MEDS: PROPOFOL 1,000 MG/100 ML INFUS..BTL IV PRN (04:48)
[2019-05-04 04:51] LABS: ARTERIAL BLOOD BASE EXCESS -2.4 mmol/L; ARTERIAL BLOOD HCO3 22.6 mmol/L (20-24); ARTERIAL BLOOD O2 SATURATION 87.7 % (94-98); ARTERIAL BLOOD PCO2 39.8 mmHg (35-45); ARTERIAL BLOOD PH 7.37 (7.35-7.45); ARTERIAL BLOOD PO2 54.5 mmHg (80-100); ARTERIAL BLOOD TOTAL CO2 23.9 mmol/L (23-27)
[2019-05-04 04:53] LABS: ARTERIAL BLOOD FIO2 21%
[2019-05-04 04:53] LABS: ABSOLUTE LYMPHOCYTES# (MANUAL) 1.1 10^3/uL (0.5-4.7); ABSOLUTE MONOCYTES # (MANUAL) 1.1 10^3/uL (0.1-1.4); BAND NEUTROPHILS % (MANUAL) 6 % (3-5); BASOPHILS % (MANUAL) 0 % (0-2); EOSINOPHILS % (MANUAL) 0 % (0-6); LYMPHOCYTES % (MANUAL) 7 % (13-45); MONOCYTES % (MANUAL) 7 % (3-13); SEGMENTED NEUTROPHILS % (MAN) 80 % (42-78); TOTAL CELLS COUNTED 100
[2019-05-04 04:55] LABS: ANISOCYTOSIS SLIGHT; PLATELET COMMENT ADEQUATE; POLYCHROMASIA SLIGHT; SCHISTOCYTES SLIGHT; TOXIC GRANULATION 1+; TOXIC VACUOLATION PRESENT
[2019-05-04] MEDS: INSULIN REG, HUMAN 100 UNIT/ML 3 ML VIAL (PYX) SUBCUT SCH ×4 (05:19→23:05)
--- NOTE | 2019-05-04 08:23 | RADIOLOGY REPORT (SQ) ---
EXAM DESCRIPTION: CHEST SINGLE VIEW COMPLETED DATE/TIME: 05/04/2019 6:02 am REASON FOR STUDY: acute respiratory failure COMPARISON: 05/02/2019 EXAM PARAMETERS: NUMBER OF VIEWS: One view. TECHNIQUE: Single frontal radiographic view of the chest acquired. RADIATION DOSE: NA LIMITATIONS: None. FINDINGS: LUNGS AND PLEURA: Markedly improved aeration bilaterally with persistent patchy right basi lar opacities. No significant effusion. No pneumothorax. MEDIASTINUM AND HILAR STRUCTURES: No masses. Contour normal. HEART AND VASCULAR STRUCTURES: Mildly decreased heart size. Decreased central vascular congestion. BONES: No acute findings. HARDWARE: Endotracheal tube tip overlies proximal thoracic trachea with tip 10.2 cm above the payton. Enteric tube tip overlies distal esophagus. OTHER: No other significant finding. IMPRESSION: Markedly improved aeration bilaterally, likely resolving edema. Retraction of the endotracheal tube with tip overlying the proximal thoracic trachea, 10.5 cm above t he payton. Enteric tube side port overlies distal esophagus. Consider repositioning. TECHNICAL DOCUMENTATION: JOB ID: [id number] 2010 [employer]- All Rights Reserved Reading location - IP/workstation name: [email or web address]
[2019-05-04] MEDS: VALSARTAN 160 MG TABLET NG SCH (09:43)
[2019-05-04] MEDS: PANTOPRAZOLE SODIUM 40 MG VIAL IV SCH ×2 (09:43→21:08)
[2019-05-04] MEDS: TORSEMIDE 20 MG TABLET NG SCH (09:52)
[2019-05-04] MEDS: AMLODIPINE BESYLATE 10 MG TABLET NG SCH (09:52)
[2019-05-04] MEDS: GLIPIZIDE 5 MG TABLET NG SCH ×2 (09:52→18:44)
[2019-05-04] MEDS: METOPROLOL TARTRATE 25 MG TABLET NG SCH ×2 (09:52→21:07)
[2019-05-04] MEDS ORDERED: CHOLECALCIFEROL (D3) 1,000 UNIT (25 MCG) TABLET NG SCH (10:00)
[2019-05-04] MEDS ORDERED: (PENDING PHARMACY ID) (Ergocalciferol (Vitamin D2) [Vitamin D2] 50 MCG) PO SCH (10:00)
[2019-05-04] MEDS ORDERED: CHOLECALCIFEROL (D3) 1,000 UNIT (25 MCG) TABLET PO SCH (10:00)
--- NOTE | 2019-05-04 11:42 | PDOC CRITICAL CARE PROG REPORT ---
General Date:: 05/04/19 ICU Day:: 1 Ventilator Day:: 1 Hospital Day:: 1 Resuscitation Status: Full Code Events in the past 12 to 24 Hours:: Ready for extubation Review of systems relevant to events:: CV and renal. Reason for ICU Addmission:: Respiratory Failure and intubation. - Medications: Medications reviewed and adjusted accordingly: Yes Vasopressors:: None Sedation:: Propofol and versed. Physical Exam Vital Signs: Temp Pulse Resp BP Pulse Ox 97.3 F 90 15 123/77 96 05/04/19 08:00 05/04/19 10:11 05/04/19 10:11 05/04/19 10:00 05/04/19 10:11 Intake & Output 05/03/19 05/04/19 05/05/19 06:59 06:59 06:59 Intake Total 902 45 Output Total 775 250 Balance 127 -205 Weight 125.6 kg Weight/Height Weight 125.6 kg Height 6 ft 4 in General appearance: PRESENT: no acute distress Head exam: PRESENT: atraumatic, normocephalic Eye exam: PRESENT: conjunctiva pink, EOMI, PERRLA. ABSENT: scleral icterus Ear exam: PRESENT: normal external ear exam Mouth exam: PRESENT: moist, tongue midline Respiratory exam: PRESENT: clear to auscultation liseth. ABSENT: rales, rhonchi, wheezes Cardiovascular exam: PRESENT: RRR. ABSENT: diastolic murmur, rubs, systolic murmur GI/Abdominal exam: PRESENT: normal bowel sounds, soft. ABSENT: distended, guarding, mass, organolmegaly, rebound, tenderness Rectal exam: PRESENT: deferred Gentrourinary exam: PRESENT: indwelling catheter Extremities exam: PRESENT: full ROM. ABSENT: calf tenderness, clubbing, pedal edema Musculoskeletal exam: PRESENT: normal inspection Neurological exam: PRESENT: other - Sedated but arousable. Psychiatric exam: PRESENT: appropriate affect, normal mood. ABSENT: homicidal ideation, suicidal ideation Skin exam: PRESENT: dry, intact, warm. ABSENT: cyanosis, rash Tubes/Lines: PRESENT: Endotracheal Tube, Nasogastic Tube Laboratory/Radiographs Laboratory Results: 05/04/19 04:11 05/04/19 04:11 05/04/19 05/04/19 05/04/19 04:11 04:11 04:25 WBC 15.1 H D RBC 2.98 L Hgb 9.3 L Hct 27.3 L MCV 92 MCH 31.3 MCHC 34.1 RDW 15.5 H Plt Count 307 Seg Neutrophils % Not Reportable Carbonic Acid 1.20 HCO3/H2CO3 Ratio 18:1 ABG pH 7.37 ABG pCO2 39.8 ABG pO2 54.5 L ABG HCO3 22.6 ABG O2 Saturation 87.7 L ABG Base Excess -2.4 FiO2 21% Sodium 132.8 L Potassium 4.6 Chloride 102 Carbon Dioxide 23 Anion Gap 8 BUN 54 H Creatinine 4.53 H Est GFR ( Amer) 16 L Glucose 179 H Calcium 8.0 L Magnesium 2.0 05/02/19 10:50 Blood Blood Culture - Final Group B Beta Streptococcus 05/03/19 01:03 NT-Pro-B Natriuret Pep 6360 H Impressions: Chest X-Ray 05/04/19 05:00 IMPRESSION: Markedly improved aeration bilaterally, likely resolving edema. Retraction of the endotracheal tube with tip overlying the proximal thoracic trachea, 10.5 cm above the payton. Enteric tube side port overlies distal esophagus. Consider repositioning. All labs, radiographs, diagnostic studies and EKGs were personally reviewed: Yes In addition, reports of radiographic and diagnostic studies were read: Yes Assessment and Plan - Diagnosis (1) CHF (congestive heart failure) Qualifiers: Heart failure type: combined systolic and diastolic Heart failure chronicity: chronic Qualified Code(s): I50.42 - Chronic combined systolic (congestive) and diastolic (congestive) heart failure Is this a current diagnosis for this admission?: Yes Plan: Much improved CXR and weaning. May likely extubate today. (2) ETOH abuse Is this a current diagnosis for this admission?: Yes Plan: No sign of WD at this time. (3) Chronic kidney disease, stage III (moderate) Is this a current diagnosis for this admission?: Yes Plan: Worse now with a GFR 13. Dr. Hogan to consult. (4) Type 2 diabetes mellitus Qualifiers: Diabetes mellitus long term care administrator insulin use: without alf use Diabetes mellitus complication status: with kidney complications Diabetes mellitus complication detail: with chronic kidney disease Chronic kidney disease stage: stage 3 (moderate) Qualified Code(s): E11.22 - Type 2 diabetes mellitus with diabetic chronic kidney disease; N18.3 - Chronic kidney disease, stage 3 (moderate) Is this a current diagnosis for this admission?: Yes Plan: Controlled. Plan Summary: Exdtubate today. Critical Time Critical Time (minutes): 35 Level of Care: ICU Anticipated discharge: Home Within: within 72 hours -: 1. The care of a critical patient is a dynamic process. This note is a strategic partnership representative synopsis but static in nature. The timeframe for treatments given in order is not necessarily the actual time these treatments may have been done. 2. This patient requires critical care secondary to ongoing requirements for therapy not offered or safe outside the critical care environment. Transfer to a lower level of care will result in altered life or limb morbidity and mortality. 3. Multidisciplinary rounds completed. 4. ABCDE bundle addressed.
--- NOTE | 2019-05-04 17:59 | CDI QUERY ---
CDI Query CDI Review: Dear Provider: To better reflect your patients severity of illness, morbidity, and resource utilization Please specify and document in the Progress Notes and Discharge Summary if you are monitoring / treating / evaluating any of the following conditions: Query Clinical indicators Please clarify the admitting diagnosis: Severe sepsis Sepsis Pneumonitis / pneumonia Acute on chronic systolic heart failure Acute on chronic renal failure Acute gastritis Unable to determine Other History of CKD III-IV, COPD, DM 2, HTN, CHF Presents with history of fever chills, nausea vomiting, coughing and feeling poorly VS: Temp 102.3 F H pulse 119 H Resp 22 H BP 182/87 O2sats 92 Labs: WBC 14.9 BUN / Cr 34/ 3.47 Lactic Acid 2.8 CXR showed bibasilar pneumonitis ED Note: 05/02/19 13:40 Patient presents with fever history of a cough chest x-ray bilateral pneumonitis-like findings he received Zosyn, 30 mL/kilogram IV fluids, blood cultures and lactate. Lactate was 2.3, patient temperature has defervesced and he is feeling better. He will be admitted to the hospital for possible sepsis, possible pneumonia, possible viral syndrome. Per H&P: Diagnosis (1) Gastroenteritis Is this a current diagnosis for this admission?: Yes Plan: He is gotten some IV fluids and I definitely do not think he needs any more than that. We will give him some antiemetics and encourage p.o. intake. 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 SPO2 was in the 60s on 100% nonrebreather. Patient was emergently intubated, sedated and admitted to the intensive care unit for acute respiratory failure. The terms probable, suspected, likely, possible or still to be ruled out may be used if you are unable to determine the exact nature of a condition. Thank you, Clinical Documentation Physician Advisors
[2019-05-04] MEDS ORDERED: VANCOMYCIN HCL 1,000 MG in DEXTROSE 5%-WATER 250 ML IV SCH (18:00)
--- NOTE | 2019-05-04 18:02 | XCELERA REPORT ---
[address] [address] Transthoracic Echocardiogram Report Name: ALEXANDRU JARED IRVING JR Age: 58 yrs Gender: Male : 1960 Patient Status: Inpatient Patient Location: ICU^607^A Study Date: 05/04/2019 11:10 AM Height: 76 in Weight: 276 lb BSA: 2.5 m2 Procedure: A two-dimensional transthoracic echocardiogram with color flow and Doppler was performed. The study was technically difficult with many images being suboptimal in quality. The study was technically limited with all images being suboptimal in quality. Reason For Study: Hx CHF, CKD, pulm HTN, last echo 1 yr History: CHF. Ordering Physician: KASANDRA JENKINS Performed By: Ruthie Soni Interpretation Summary The left ventricle is mildly to moderately dilated. There is mild concentric left ventricular hypertrophy. LV EF is 40% to 45%% Left ventricular systolic function is moderately reduced. Doppler measurements suggest impaired left ventricular relaxation, which is associated with grade I/IV or mild diastolic dysfunction By tissue dopplers. There is moderate global hypokinesis of the left ventricle. There is no thrombus. No ASD ,VSD , or PFO seen. The right ventricle is not well visualized secondary to technical limitations The right atrium is mildly dilated. The left atrium is mildly dilated. There is mild mitral annular calcification. There is no evidence of mitral valve prolapse. There is no vegetation seen on the mitral valve. There is no mitral valve stenosis. There is a trace amount of mitral regurgitation There is no aortic valvular vegetation. There is no aortic valve stenosis There is no LVOT obstruction. There is aortic sclerosis without aortic stenosis. No aortic regurgitation is present. There is no tricuspid stenosis. There is a mild amount of tricuspid regurgitation RVSP is 55 to 60 mm of Hg with RA mean of 15 to 20. There is moderate to severe pulmonary hypertension by echo There is no pulmonic valvular stenosis. There is no pulmonic valvular regurgitation. The aortic root is normal size. The inferior vena cava appeared dilated and decreased < 50% with respiration (RAP 15-20 mmHg) There is no pericardial effusion. MMode/2D Measurements & Calculations RVDd: 3.1 cm LVIDd: 5.8 cm FS: 21.7 % Ao root diam: 2.8 cm IVSd: 1.3 cm LVIDs: 4.6 cm EDV(Teich): 169.3 ml Ao root area: 6.1 cm2 LVPWd: 1.3 cm ESV(Teich): 96.0 ml LA dimension: 4.2 cm EF(Teich): 43.3 % Doppler Measurements & Calculations MV E max kp: MV P1/2t max kp: Ao V2 max: LV V1 max P.7 cm/sec 98.3 cm/sec 93.5 cm/sec 2.1 mmHg MV A max kp: MV P1/2t: 52.4 msec Ao max P.5 mmHg LV V1 max: 25.8 cm/sec MVA(P1/2t): 4.2 cm2 72.1 cm/sec MV E/A: 3.8 MV dec slope: 549.8 cm/sec2 MV dec time: 0.17 sec PA V2 max: TR max kp: MV P1/2t-pr_phl: 56.3 cm/sec 317.1 cm/sec 52.4 msec PA max P.3 mmHgTR max P.2 mmHg Left Ventricle The left ventricle is mildly to moderately dilated. There is mild concentric left ventricular hypertrophy. LV EF is 40% to 45%%. Left ventricular systolic function is moderately reduced. Doppler measurements suggest impaired left ventricular relaxation, which is associated with grade I/IV or mild diastolic dysfunction. By tissue dopplers. There is moderate global hypokinesis of the left ventricle. There is no thrombus. No ASD ,VSD , or PFO seen. Right Ventricle The right ventricle is not well visualized secondary to technical limitations. Atria The right atrium is mildly dilated. The left atrium is mildly dilated. Mitral Valve There is mild mitral annular calcification. There is no evidence of mitral valve prolapse. There is no vegetation seen on the mitral valve. There is no mitral valve stenosis. There is a trace amount of mitral regurgitation. Aortic Valve There is no aortic valvular vegetation. There is no aortic valve stenosis. There is no LVOT obstruction. There is aortic sclerosis without aortic stenosis. No aortic regurgitation is present. Tricuspid Valve There is no tricuspid stenosis. There is a mild amount of tricuspid regurgitation. RVSP is 55 to 60 mm of Hg with RA mean of 15 to 20. There is moderate to severe pulmonary hypertension by echo. Pulmonic Valve There is no pulmonic valvular stenosis. There is no pulmonic valvular regurgitation. Great Vessels The aortic root is normal size. The inferior vena cava appeared dilated and decreased < 50% with respiration (RAP 15-20 mmHg). Effusions There is no pericardial effusion. Electronically signed by: Deonna Iniguez 05/04/2019 06:01 PM CC: KASANDRA JENKINS, Deonna
--- NOTE | 2019-05-04 18:03 | PDOC CONSULTATION ---
Consultation-Blank Consultation: CARDIOLOGY CONSULTATION by Dr. Deonna Iniguez on 05/04/2019. Patient seen at 7 PM. 60 minutes spent as patient more than 50% time spent in direct patient care. REASON FOR CONSULTATION: Patient well known to me admitted with acute respiratory failure due to acute biventricular systolic heart failure. CONSULT REQUESTING PHYSICIAN: Dr. Avalos, vehicle assembler. HISTORY OF PRESENT ILLNESS: Note that the patient is just been extubated and is still very groggy and drowsy and hence not much history obtained from the patient. The patient after repeated questioning denies any shortness of breath or chest pain. He he is in the ICU in bed with his head propped up. There is no arrhythmia seen on the monitor. As per the chart the patient was admitted with nausea vomiting and loose stools and was given 3 L of fluid in the emergency room and developed sudden volume overload heart failure. The patient has a history of chronic kidney disease which is worse now from a stage III to stage IV. He has a past history of proteinuria which has been worked up with nephrology and no cause has been found. The patient is refused renal biopsy for further insight into the diagnosis for the cause of his proteinuria. The patient also has a history of dilated cardiomyopathy nonischemic. He has a history of hypertension and diabetes mellitus. He also has a history of EtOH abuse. Past Medical History Cardiac Medical History: Reports: CHF-Diastolic, CHF-Systolic, Hyperlipidemia, Hypertension-primary, Peripheral Vascular Disease, Pulmonary Hypertension he has chronic biventricular systolic failure heart failure. He has no history of coronary artery disease. He has history of dilated cardiomyopathy. 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 Masterson Smoking Status: Never Smoker Electronic Cigarette use?: No Frequency of Alcohol Use: Heavy Hx Recreational Drug Use: No Drugs: None Hx Prescription Drug Abuse: No - Advance Directive Resuscitation Status: Full Code. Patient's daughter is her surrogate healthcare decision maker. Family History Family History: No history of kidney disease in the family Parental Family History Reviewed: Yes Children Family History Reviewed: No Sibling(s) Family History Reviewed.: Yes Medication/Allergy Home Medications: Aspirin [Ecotrin 81 mg EC Tablet] 81 mg PO DAILY 12/12/18 Atorvastatin Calcium [Lipitor 40 mg Tablet] 40 mg PO QHS 12/12/18 Glipizide [Glipizide Xl] 10 mg PO [id number] 12/12/18 Amlodipine Besylate [Norvasc 10 mg Tablet] 10 mg PO DAILY #30 tablet 12/15/18 Ergocalciferol (Vitamin D2) [Vitamin D2] 50 mcg PO MO@1000 05/02/19 Furosemide [Lasix 40 mg Tablet] 40 mg PO QPM 05/02/19 Metoprolol Succinate [Toprol Xl 25 mg Tab.sr] 25 mg PO DAILY 05/02/19 Torsemide [Demadex 20 mg Tablet] 20 mg PO DAILY 05/02/19 Valsartan 320 mg PO DAILY 05/02/19 Allergies/Adverse Reactions: No Known Allergies Allergy (Verified 06/10/18 17:31) Review of Systems ROS unobtainable: Due to patient being drowsy. Chart reviewed in full. Current Medications Generic Name Dose Route Start Last Admin Trade Name Freq PRN Reason Stop Dose Admin Acetaminophen 650 mg 05/03/19 11:00 Tylenol 325 Mg Tablet NG 06/01/19 15:25 Q4HP PRN FOR PAIN OR TEMP Albuterol/Ipratropium 3 ml 05/03/19 00:00 05/04/19 20:08 Duoneb 3 Ml Ampul NEB 06/02/19 00:00 3 ml RTQ4 CATHY Administration Amlodipine Besylate 10 mg 05/04/19 10:00 05/04/19 09:52 Norvasc 10 Mg Tablet NG 06/02/19 09:59 10 mg DAILY CATHY Administration Aspirin 81 mg 05/04/19 10:00 Aspirin 81 Mg Chewable Tablet NG 06/03/19 09:59 DAILY CATHY Atorvastatin Calcium 40 mg 05/03/19 22:00 05/04/19 21:08 Lipitor 40 Mg Tablet NG 06/01/19 21:59 40 mg QHS CATHY Administration Cholecalciferol 2,000 unit 05/04/19 10:00 05/04/19 09:43 Vitamin D3 1000 Unit Tablet NG 06/03/19 09:59 2,000 unit MO@1000 [facility] Administration Dextrose 12.5 gm 05/03/19 00:50 Dextrose Inj 50% Syringe (25 Gm/50 Ml) IV 06/02/19 00:49 PRN PRN FOR BG 50-69 IN ALERT PATIENT Protocol Dextrose 25 gm 05/03/19 00:50 Dextrose Inj 50% Syringe (25 Gm/50 Ml) IV 06/02/19 00:49 PRN PRN PER PROTOCOL Protocol Glipizide 5 mg 05/03/19 18:00 05/04/19 18:44 Glucotrol 5 Mg Tablet NG 06/02/19 17:59 Not Given BIDACBS [facility] Glucagon 1 mg 05/03/19 00:50 Glucagen Inj 1 Mg Vial IM 06/02/19 00:49 PRN PRN Evaluate for BG < 70 Protocol Glucose 15 gm 05/03/19 11:00 Glutose 40% Gel 15 Gm Tube NG 06/02/19 00:49 PRN PRN FOR BG 50-69 IN ALERT PATIENT Protocol Glucose 30 gm 05/03/19 11:00 Glutose 40% Gel 15 Gm Tube NG 06/02/19 00:49 PRN PRN FOR BG < 50 IN ALERT PATIENT Protocol Heparin Sodium (Porcine) 5,000 unit 05/02/19 22:00 05/03/19 13:12 Heparin Inj 5,000 Units/Ml 1 Ml Vial SUBCUT 06/01/19 21:59 5,000 unit Q8 CATHY Administration Cefepime HCl 1 gm in 50 mls @ 100 mls/hr 05/03/19 00:00 05/04/19 23:05 Maxipime Rtu 1 Gm/D5w 50 Ml Premix Bag IV 05/10/19 00:00 100 mls/hr Q24H CATHY 100 mls/hr Administration Vancomycin HCl 1,000 mg/ 250 mls @ 166.667 mls/hr 05/04/19 18:00 05/04/19 20:13 Dextrose IV 05/11/19 17:59 Infused QPM [facility] Infusion Insulin Human Regular 0 - 12 unit 05/03/19 01:00 05/04/19 23:05 Humulin R (Pyxis) Insulin 100 Unit/Ml 3ml SUBCUT 06/02/19 00:59 Not Given Q6 CATHY Protocol Lorazepam 1 mg 05/03/19 03:23 Ativan Inj 2 Mg/1 Ml Vial IV 05/10/19 03:22 Q4HP PRN ANXIETY/AGITATION Metoprolol Tartrate 12.5 mg 05/03/19 12:00 05/04/19 21:07 Lopressor 25 Mg Tablet NG 06/02/19 11:59 12.5 mg Q12 CATHY Administration Ondansetron HCl 4 mg 05/02/19 15:35 05/02/19 22:05 Zofran Inj/Pf 4 Mg/2 Ml Sdv IV 06/01/19 15:34 4 mg Q4HP PRN Administration FOR NAUSEA/VOMITING Pantoprazole Sodium 40 mg 05/03/19 22:00 05/04/19 21:08 Protonix Iv Inj 40 Mg Vial IV 05/06/19 21:59 40 mg Q12 CATHY Administration Sodium Chloride 2.5 ml 05/03/19 06:00 05/04/19 21:08 Saline Flush 2.5 Ml Monoject Prefil Syrin IV 06/02/19 05:59 Not Given Q8 CATHY Torsemide 40 mg 05/04/19 10:00 05/04/19 09:52 Demadex 20 Mg Tablet NG 06/02/19 09:59 40 mg DAILY CATHY Administration Valsartan 320 mg 05/04/19 10:00 05/04/19 09:43 Diovan 160 Mg Tablet NG 06/02/19 09:59 320 mg DAILY CATHY Administration Discontinued Medications Generic Name Dose Route Start Last Admin Trade Name Freq PRN Reason Stop Dose Admin Acetaminophen 975 mg 05/02/19 10:19 05/02/19 11:18 Tylenol 325 Mg Tablet PO 05/02/19 10:20 975 mg NOW ONE Administration Acetaminophen 650 mg 05/02/19 15:26 05/03/19 09:51 Tylenol 325 Mg Tablet PO 06/01/19 15:25 650 mg Q4HP PRN Administration FOR PAIN OR TEMP Amlodipine Besylate 10 mg 05/03/19 10:00 05/03/19 09:51 Norvasc 10 Mg Tablet PO 06/02/19 09:59 10 mg DAILY CATHY Administration Aspirin 81 mg 05/03/19 10:00 05/03/19 09:49 Ecotrin 81 Mg Ec Tablet PO 06/02/19 09:59 Not Given DAILY CATHY Atorvastatin Calcium 40 mg 05/02/19 22:00 05/02/19 21:09 Lipitor 40 Mg Tablet PO 06/01/19 21:59 40 mg QHS CATHY Administration Cholecalciferol 2,000 unit 05/04/19 10:00 Vitamin D3 1000 Unit Tablet PO 06/03/19 09:59 MO@1000 [facility] Dextrose 12.5 gm 05/02/19 20:01 Dextrose Inj 50% Syringe (25 Gm/50 Ml) IV 06/01/19 20:00 PRN PRN FOR BG 50-69 IN ALERT PATIENT Protocol Dextrose 25 gm 05/02/19 20:01 Dextrose Inj 50% Syringe (25 Gm/50 Ml) IV 06/01/19 20:00 PRN PRN PER PROTOCOL Protocol Etomidate Confirm 05/02/19 22:48 05/02/19 22:48 Amidate Inj/Pf 20 Mg/10 Ml Sdv Administered 05/02/19 22:49 20 mg Dose Administration 20 mg IV .STK-MED ONE Etomidate Confirm 05/02/19 23:08 05/02/19 23:08 Amidate Inj/Pf 20 Mg/10 Ml Sdv Administered 05/02/19 23:09 10 mg Dose Administration 20 mg IV .STK-MED ONE Furosemide 40 mg 05/03/19 18:00 Lasix 40 Mg Tablet PO 06/02/19 17:59 PCSUPPER CATHY Furosemide 40 mg 05/02/19 22:30 05/03/19 00:19 Lasix 40 Mg Tablet PO 05/02/19 22:31 Not Given NOW ONE Furosemide Confirm 05/02/19 22:23 05/03/19 00:19 Lasix Inj/Pf 40 Mg/4 Ml Sdv Administered 05/02/19 22:24 Not Given Dose 40 mg .ROUTE .STK-MED ONE Furosemide 40 mg 05/02/19 23:00 05/02/19 22:25 Lasix Inj/Pf 40 Mg/4 Ml Sdv IV 05/02/19 23:01 40 mg ONCE ONE Administration Glipizide 10 mg 05/03/19 08:00 05/03/19 09:47 Glucotrol Xl 5 Mg Tab.Er PO 06/02/19 07:59 Not Given WBRKFST CATHY Glucagon 1 mg 05/02/19 20:01 Glucagen Inj 1 Mg Vial IM 06/01/19 20:00 PRN PRN Evaluate for BG < 70 Protocol Glucose 15 gm 05/02/19 20:01 Glutose 40% Gel 15 Gm Tube PO 06/01/19 20:00 PRN PRN FOR BG 50-69 IN ALERT PATIENT Protocol Glucose 30 gm 05/02/19 20:01 Glutose 40% Gel 15 Gm Tube PO 06/01/19 20:00 PRN PRN FOR BG < 50 IN ALERT PATIENT Protocol Glucose 15 gm 05/03/19 00:50 Glutose 40% Gel 15 Gm Tube PO 06/02/19 00:49 PRN PRN FOR BG 50-69 IN ALERT PATIENT Protocol Glucose 30 gm 05/03/19 00:50 Glutose 40% Gel 15 Gm Tube PO 06/02/19 00:49 PRN PRN FOR BG < 50 IN ALERT PATIENT Protocol Lactated Ringer's 3,670 mls @ 917.5 mls/hr 05/02/19 10:19 05/02/19 15:00 Lactated Ringers 1000 Ml Iv Soln 30 ml/kg infuse over 4 hr (3670 ml) 05/02/19 14:18 Infused IV Infusion BOLUS ONE Propofol Confirm 05/02/19 23:21 05/03/19 01:58 Diprivan Rtu 1000 Mg/100 Ml Inf.Bottle Administered 05/02/19 23:22 Infused Dose Infusion 1,000 mg in 100 mls @ ud IV .STK-MED ONE Cefepime HCl 1 gm in 50 mls @ 100 mls/hr 05/02/19 23:45 05/03/19 03:33 Maxipime Rtu 1 Gm/D5w 50 Ml Premix Bag IV 05/09/19 23:44 Not Given DAILY CATHY Midazolam HCl Confirm 05/03/19 00:05 05/02/19 23:50 Versed Rtu 50 Mg/100 Ml Premix Bag Administered 05/03/19 00:06 5 mls/hr Dose Administration 50 mg in 100 mls @ ud .ROUTE .STK-MED ONE Midazolam HCl 50 mg in 100 mls @ 0 mls/hr 05/03/19 00:46 05/03/19 18:05 Versed Rtu 50 Mg/100 Ml Premix Bag IV 05/10/19 00:45 0 mg/hr CONTINUOUS PRN 0 mls/hr THIS MED IS NOT "PRN" Titration Protocol Titrate Propofol Confirm 05/03/19 01:32 05/03/19 05:00 Diprivan Rtu 1000 Mg/100 Ml Inf.Bottle Administered 05/03/19 01:33 0 mcg/kg/min Dose 0 mls/hr 1,000 mg in 100 mls @ ud Infusion IV .STK-MED ONE Propofol 1,000 mg in 100 mls @ 3.798 mls/hr 05/03/19 03:21 05/04/19 09:53 Diprivan Rtu 1000 Mg/100 Ml Inf.Bottle IV 06/02/19 03:20 10 mcg/kg/min CONTINUOUS PRN 7.6 mls/hr THIS MED IS NOT "PRN" Titration Protocol 5 MCG/KG/MIN Insulin Human Regular 0 - 12 unit 05/03/19 08:00 Humulin R (Pyxis) Insulin 100 Unit/Ml 3ml SUBCUT 06/02/19 07:59 BIDACBS [facility] Protocol Methylprednisolone Sodium Succinate Confirm 05/02/19 22:23 05/03/19 00:19 Solu-Medrol Inj/Pf 125 Mg/2 Ml Sdv Administered 05/02/19 22:24 Not Given Dose 125 mg .ROUTE .STK-MED ONE Methylprednisolone Sodium Succinate 125 mg 05/02/19 23:00 05/02/19 22:35 Solu-Medrol Inj/Pf 125 Mg/2 Ml Sdv IV 05/02/19 23:01 125 mg ONCE ONE Administration Metoprolol Succinate 25 mg 05/03/19 10:00 05/03/19 09:48 Toprol Xl 25 Mg Tab.Sr PO 06/02/19 09:59 Not Given DAILY [facility] Ondansetron HCl 8 mg 05/02/19 11:00 05/02/19 11:13 Zofran Inj/Pf 4 Mg/2 Ml Sdv IV 05/02/19 11:01 8 mg NOW ONE Administration Piperacillin Sod/Tazobactam Sod 4.5 gm 05/02/19 10:19 05/02/19 11:16 Zosyn Inj 4.5 Gm Vial IV 05/02/19 10:20 4.5 gm IVBAG (ED) ONE Administration Propofol Confirm 05/02/19 22:46 05/02/19 22:46 Diprivan Inj 200 Mg/20 Ml Vial Administered 05/02/19 22:47 200 mg Dose Administration 200 mg IV .STK-MED ONE Propofol Confirm 05/02/19 23:07 05/02/19 23:08 Diprivan Inj 200 Mg/20 Ml Vial Administered 05/02/19 23:08 200 mg Dose Administration 200 mg IV .STK-MED ONE Propofol Confirm 05/02/19 23:20 05/02/19 23:20 Diprivan Inj 200 Mg/20 Ml Vial Administered 05/02/19 23:21 100 mg Dose Administration 200 mg IV .STK-MED ONE Sodium Chloride 2.5 ml 05/02/19 22:00 05/03/19 05:50 Saline Flush 2.5 Ml Monoject Prefil Syrin IV 06/01/19 21:59 Not Given Q8 CATHY Torsemide 40 mg 05/03/19 10:00 05/03/19 10:00 Demadex 20 Mg Tablet PO 06/02/19 09:59 40 mg DAILY CATHY Administration Valsartan 320 mg 05/03/19 10:00 05/03/19 09:51 Diovan 160 Mg Tablet PO 06/02/19 09:59 320 mg DAILY CATHY Administration Vancomycin HCl 1,000 mg 05/03/19 06:00 Vancocin Inj 1000 Mg Vial IV 05/10/19 05:59 Q48HP CATHY PHYSICAL EXAMINATION: The patient is moderately obese. He is slightly drowsy. Does answer questions after repeated questioning. But is but he is still under the influence of sedation. Selected Entries 05/04/19 05/04/19 05/04/19 17:28 18:00 20:10 Core 97.9 F Temperature Heart Rate ( 99 Monitors) Respiratory 28 H 24 H Rate Blood Pressure 152/86 H Blood Pressure 108 Mean O2 Sat by Pulse 98 94 Oximetry Fraction of 28 Inspired Oxygen (FIO2) Oxygen Flow 2 Rate HEAD: Is atraumatic normocephalic. EYES: Pupils are equal round regular reactive to light. ENT is negative. NECK: Is supple there is mild JVD present. Carotids are equal there is no bruits. There is no lymphadenopathy. There is no goiter. There is no accessory muscle respiration use. LUNGS: There is a few bibasilar fine rales. There is scattered rhonchi. HEART: S1-S2 is heard. There is no S3 gallop. There is no S4 gallop. There is murmur of mitral regurgitation and tricuspid regurgitation present. There is no rub. ABDOMEN: Soft mildly obese. Nontender there is no paraspinal megaly. Bowel sounds are well heard. Extremities femorals are diminished. Leg pulses are diminished there is chronic lymphedema with also mild pitting edema bilaterally. There is chronic venous stasis dermatitis changes. Leg pulses are difficult to palpate. There is no DVT or cellulitis. There is no cyanosis or clubbing. CHEMICAL TANK WORKER: The patient drowsy but moves all 4 extremities. PSYCHIATRIC: In view of the patient's drowsiness psychiatric exam not performed. His EKG shows sinus tachycardia LVH with repolarization abnormality. Diffuse ST-T changes cannot exclude diffuse ischemia. Labs- Entire Visit 05/02/19 05/02/19 05/02/19 10:50 10:50 10:50 WBC 14.9 H RBC 3.93 L Hgb 11.9 L Hct 36.0 L MCV 92 MCH 30.4 MCHC 33.2 RDW 15.6 H Plt Count 342 Lymph % (Auto) Not Reportable [place] % (Auto) Not Reportable Eos % (Auto) Not Reportable Baso % (Auto) Not Reportable Absolute Neuts (auto) Not Reportable Absolute Lymphs (auto) Not Reportable Absolute Monos (auto) Not Reportable Absolute Eos (auto) Not Reportable Absolute Basos (auto) Not Reportable Total Counted 100 Seg Neutrophils % Not Reportable Seg Neuts % (Manual) 93 H Band Neutrophils % 1 L Lymphocytes % (Manual) 3 L Monocytes % (Manual) 2 L Eosinophils % (Manual) 0 Basophils % (Manual) 1 Abs Neuts (Manual) 14.0 H Abs Lymphs (Manual) 0.4 L Abs Monocytes (Manual) 0.3 Absolute Eos (Manual) 0.0 Abs Basophils (Manual) 0.1 Toxic Granulation 1+ Toxic Vacuolation Clumped Platelets PRESENT Platelet Comment ADEQUATE Polychromasia Anisocytosis SLIGHT Schistocytes PT 12.7 INR 0.95 APTT Carbonic Acid HCO3/H2CO3 Ratio ABG pH ABG pCO2 ABG pO2 ABG HCO3 ABG Total CO2 ABG O2 Saturation ABG Base Excess VBG pH VBG pCO2 VBG HCO3 VBG Base Excess FiO2 Sodium 134.3 L Potassium 4.3 Chloride 101 Carbon Dioxide 22 Anion Gap 11 BUN 34 H Creatinine 3.47 H Est GFR ( Amer) 22 L Est GFR (MDRD) Non-Af 18 L Glucose 107 POC Glucose Lactic Acid Calcium 8.7 Phosphorus Magnesium Total Bilirubin 0.7 Direct Bilirubin 0.0 Neonat Total Bilirubin Not Reportable Neonat Direct Bilirubin Not Reportable Neonat Indirect Bili Not Reportable AST 27 ALT 16 Alkaline Phosphatase 99 NT-Pro-B Natriuret Pep Total Protein 6.8 Albumin 3.2 L Urine Color Urine Appearance Urine pH Ur Specific [place] Urine Protein Urine Glucose (UA) Urine Ketones Urine Blood Urine Nitrite Urine Bilirubin Urine Urobilinogen Ur Leukocyte Esterase Urine WBC (Auto) Urine RBC (Auto) Urine Bacteria (Auto) Squamous Epi Cells Auto Urine Mucus (Auto) Urine Ascorbic Acid Gastric Occult Blood Influenza A (Rapid) Influenza B (Rapid) 05/02/19 05/02/19 05/02/19 10:50 10:50 10:53 WBC RBC Hgb Hct MCV MCH MCHC RDW Plt Count Lymph % (Auto) [place] % (Auto) Eos % (Auto) Baso % (Auto) Absolute Neuts (auto) Absolute Lymphs (auto) Absolute Monos (auto) Absolute Eos (auto) Absolute Basos (auto) Total Counted Seg Neutrophils % Seg Neuts % (Manual) Band Neutrophils % Lymphocytes % (Manual) Monocytes % (Manual) Eosinophils % (Manual) Basophils % (Manual) Abs Neuts (Manual) Abs Lymphs (Manual) Abs Monocytes (Manual) Absolute Eos (Manual) Abs Basophils (Manual) Toxic Granulation Toxic Vacuolation Clumped Platelets Platelet Comment Polychromasia Anisocytosis Schistocytes PT INR APTT Carbonic Acid HCO3/H2CO3 Ratio ABG pH ABG pCO2 ABG pO2 ABG HCO3 ABG Total CO2 ABG O2 Saturation ABG Base Excess VBG pH 7.37 VBG pCO2 39.8 VBG HCO3 22.4 VBG Base Excess -2.5 FiO2 Sodium Potassium Chloride Carbon Dioxide Anion Gap BUN Creatinine Est GFR ( Amer) Est GFR (MDRD) Non-Af Glucose POC Glucose 107 Lactic Acid 2.8 H Calcium Phosphorus Magnesium Total Bilirubin Direct Bilirubin Neonat Total Bilirubin Neonat Direct Bilirubin Neonat Indirect Bili AST ALT Alkaline Phosphatase NT-Pro-B Natriuret Pep Total Protein Albumin Urine Color Urine Appearance Urine pH Ur Specific [place] Urine Protein Urine Glucose (UA) Urine Ketones Urine Blood Urine Nitrite Urine Bilirubin Urine Urobilinogen Ur Leukocyte Esterase Urine WBC (Auto) Urine RBC (Auto) Urine Bacteria (Auto) Squamous Epi Cells Auto Urine Mucus (Auto) Urine Ascorbic Acid Gastric Occult Blood Influenza A (Rapid) Influenza B (Rapid) 05/02/19 05/02/19 05/02/19 12:12 12:48 13:30 WBC RBC Hgb Hct MCV MCH MCHC RDW Plt Count Lymph % (Auto) [place] % (Auto) Eos % (Auto) Baso % (Auto) Absolute Neuts (auto) Absolute Lymphs (auto) Absolute Monos (auto) Absolute Eos (auto) Absolute Basos (auto) Total Counted Seg Neutrophils % Seg Neuts % (Manual) Band Neutrophils % Lymphocytes % (Manual) Monocytes % (Manual) Eosinophils % (Manual) Basophils % (Manual) Abs Neuts (Manual) Abs Lymphs (Manual) Abs Monocytes (Manual) Absolute Eos (Manual) Abs Basophils (Manual) Toxic Granulation Toxic Vacuolation Clumped Platelets Platelet Comment Polychromasia Anisocytosis Schistocytes PT INR APTT Carbonic Acid HCO3/H2CO3 Ratio ABG pH ABG pCO2 ABG pO2 ABG HCO3 ABG Total CO2 ABG O2 Saturation ABG Base Excess VBG pH VBG pCO2 VBG HCO3 VBG Base Excess FiO2 Sodium Potassium Chloride Carbon Dioxide Anion Gap BUN Creatinine Est GFR ( Amer) Est GFR (MDRD) Non-Af Glucose POC Glucose Lactic Acid 1.1 Calcium Phosphorus Magnesium Total Bilirubin Direct Bilirubin Neonat Total Bilirubin Neonat Direct Bilirubin Neonat Indirect Bili AST ALT Alkaline Phosphatase NT-Pro-B Natriuret Pep Total Protein Albumin Urine Color YELLOW Urine Appearance SLIGHTLY-CLOUDY Urine pH 6.0 Ur Specific [place] 1.014 Urine Protein >=500 H Urine Glucose (UA) 150 H Urine Ketones NEGATIVE Urine Blood SMALL H Urine Nitrite NEGATIVE Urine Bilirubin NEGATIVE Urine Urobilinogen NEGATIVE Ur Leukocyte Esterase NEGATIVE Urine WBC (Auto) 4 Urine RBC (Auto) 4 Urine Bacteria (Auto) TRACE Squamous Epi Cells Auto <1 Urine Mucus (Auto) RARE Urine Ascorbic Acid NEGATIVE Gastric Occult Blood Influenza A (Rapid) NEGATIVE Influenza B (Rapid) NEGATIVE 05/02/19 05/02/19 05/02/19 16:25 16:48 21:31 WBC RBC Hgb Hct MCV MCH MCHC RDW Plt Count Lymph % (Auto) [place] % (Auto) Eos % (Auto) Baso % (Auto) Absolute Neuts (auto) Absolute Lymphs (auto) Absolute Monos (auto) Absolute Eos (auto) Absolute Basos (auto) Total Counted Seg Neutrophils % Seg Neuts % (Manual) Band Neutrophils % Lymphocytes % (Manual) Monocytes % (Manual) Eosinophils % (Manual) Basophils % (Manual) Abs Neuts (Manual) Abs Lymphs (Manual) Abs Monocytes (Manual) Absolute Eos (Manual) Abs Basophils (Manual) Toxic Granulation Toxic Vacuolation Clumped Platelets Platelet Comment Polychromasia Anisocytosis Schistocytes PT INR APTT Carbonic Acid HCO3/H2CO3 Ratio ABG pH ABG pCO2 ABG pO2 ABG HCO3 ABG Total CO2 ABG O2 Saturation ABG Base Excess VBG pH VBG pCO2 VBG HCO3 VBG Base Excess FiO2 Sodium Potassium Chloride Carbon Dioxide Anion Gap BUN Creatinine Est GFR ( Amer) Est GFR (MDRD) Non-Af Glucose POC Glucose 133 H 133 H Lactic Acid 2.7 H Calcium Phosphorus Magnesium Total Bilirubin Direct Bilirubin Neonat Total Bilirubin Neonat Direct Bilirubin Neonat Indirect Bili AST ALT Alkaline Phosphatase NT-Pro-B Natriuret Pep Total Protein Albumin Urine Color Urine Appearance Urine pH Ur Specific [place] Urine Protein Urine Glucose (UA) Urine Ketones Urine Blood Urine Nitrite Urine Bilirubin Urine Urobilinogen Ur Leukocyte Esterase Urine WBC (Auto) Urine RBC (Auto) Urine Bacteria (Auto) Squamous Epi Cells Auto Urine Mucus (Auto) Urine Ascorbic Acid Gastric Occult Blood Influenza A (Rapid) Influenza B (Rapid) 05/02/19 05/02/19 05/03/19 22:21 22:41 00:31 WBC RBC Hgb Hct MCV MCH MCHC RDW Plt Count Lymph % (Auto) [place] % (Auto) Eos % (Auto) Baso % (Auto) Absolute Neuts (auto) Absolute Lymphs (auto) Absolute Monos (auto) Absolute Eos (auto) Absolute Basos (auto) Total Counted Seg Neutrophils % Seg Neuts % (Manual) Band Neutrophils % Lymphocytes % (Manual) Monocytes % (Manual) Eosinophils % (Manual) Basophils % (Manual) Abs Neuts (Manual) Abs Lymphs (Manual) Abs Monocytes (Manual) Absolute Eos (Manual) Abs Basophils (Manual) Toxic Granulation Toxic Vacuolation Clumped Platelets Platelet Comment Polychromasia Anisocytosis Schistocytes PT INR APTT Carbonic Acid 1.84 H HCO3/H2CO3 Ratio 11:1 ABG pH 7.16 L* ABG pCO2 61.2 H ABG pO2 49.2 L ABG HCO3 21.1 ABG Total CO2 23.0 ABG O2 Saturation 72.9 L ABG Base Excess -8.3 VBG pH VBG pCO2 VBG HCO3 VBG Base Excess FiO2 15L Sodium Potassium Chloride Carbon Dioxide Anion Gap BUN Creatinine Est GFR ( Amer) Est GFR (MDRD) Non-Af Glucose POC Glucose 139 H 208 H Lactic Acid Calcium Phosphorus Magnesium Total Bilirubin Direct Bilirubin Neonat Total Bilirubin Neonat Direct Bilirubin Neonat Indirect Bili AST ALT Alkaline Phosphatase NT-Pro-B Natriuret Pep Total Protein Albumin Urine Color Urine Appearance Urine pH Ur Specific [place] Urine Protein Urine Glucose (UA) Urine Ketones Urine Blood Urine Nitrite Urine Bilirubin Urine Urobilinogen Ur Leukocyte Esterase Urine WBC (Auto) Urine RBC (Auto) Urine Bacteria (Auto) Squamous Epi Cells Auto Urine Mucus (Auto) Urine Ascorbic Acid Gastric Occult Blood Influenza A (Rapid) Influenza B (Rapid) 05/03/19 05/03/19 05/03/19 01:03 01:03 01:03 WBC 6.4 RBC 3.59 L Hgb 11.3 L Hct 33.0 L MCV 92 MCH 31.5 MCHC 34.3 RDW 15.7 H Plt Count 300 Lymph % (Auto) [place] % (Auto) Eos % (Auto) Baso % (Auto) Absolute Neuts (auto) Absolute Lymphs (auto) Absolute Monos (auto) Absolute Eos (auto) Absolute Basos (auto) Total Counted Seg Neutrophils % Seg Neuts % (Manual) Band Neutrophils % Lymphocytes % (Manual) Monocytes % (Manual) Eosinophils % (Manual) Basophils % (Manual) Abs Neuts (Manual) Abs Lymphs (Manual) Abs Monocytes (Manual) Absolute Eos (Manual) Abs Basophils (Manual) Toxic Granulation Toxic Vacuolation Clumped Platelets Platelet Comment Polychromasia Anisocytosis Schistocytes PT 13.9 INR 1.07 APTT 33.6 Carbonic Acid HCO3/H2CO3 Ratio ABG pH ABG pCO2 ABG pO2 ABG HCO3 ABG Total CO2 ABG O2 Saturation ABG Base Excess VBG pH VBG pCO2 VBG HCO3 VBG Base Excess FiO2 Sodium 133.5 L Potassium 4.7 Chloride 103 Carbon Dioxide 19 L Anion Gap 12 BUN 38 H Creatinine 3.41 H Est GFR ( Amer) 22 L Est GFR (MDRD) Non-Af 19 L Glucose 206 H POC Glucose Lactic Acid Calcium 8.3 L Phosphorus 5.8 H Magnesium 1.6 Total Bilirubin 1.1 Direct Bilirubin 0.5 H Neonat Total Bilirubin Not Reportable Neonat Direct Bilirubin Not Reportable Neonat Indirect Bili Not Reportable AST 32 ALT 16 Alkaline Phosphatase 82 NT-Pro-B Natriuret Pep Total Protein 6.2 L Albumin 2.6 L Urine Color Urine Appearance Urine pH Ur Specific [place] Urine Protein Urine Glucose (UA) Urine Ketones Urine Blood Urine Nitrite Urine Bilirubin Urine Urobilinogen Ur Leukocyte Esterase Urine WBC (Auto) Urine RBC (Auto) Urine Bacteria (Auto) Squamous Epi Cells Auto Urine Mucus (Auto) Urine Ascorbic Acid Gastric Occult Blood Influenza A (Rapid) Influenza B (Rapid) 05/03/19 05/03/19 05/03/19 01:03 01:48 05:15 WBC RBC Hgb Hct MCV MCH MCHC RDW Plt Count Lymph % (Auto) [place] % (Auto) Eos % (Auto) Baso % (Auto) Absolute Neuts (auto) Absolute Lymphs (auto) Absolute Monos (auto) Absolute Eos (auto) Absolute Basos (auto) Total Counted Seg Neutrophils % Seg Neuts % (Manual) Band Neutrophils % Lymphocytes % (Manual) Monocytes % (Manual) Eosinophils % (Manual) Basophils % (Manual) Abs Neuts (Manual) Abs Lymphs (Manual) Abs Monocytes (Manual) Absolute Eos (Manual) Abs Basophils (Manual) Toxic Granulation Toxic Vacuolation Clumped Platelets Platelet Comment Polychromasia Anisocytosis Schistocytes PT INR APTT Carbonic Acid 1.07 HCO3/H2CO3 Ratio 18:1 ABG pH 7.37 ABG pCO2 35.5 ABG pO2 81.2 ABG HCO3 20.1 ABG Total CO2 21.2 L ABG O2 Saturation 95.8 ABG Base Excess -4.6 VBG pH VBG pCO2 VBG HCO3 VBG Base Excess FiO2 80% Sodium Potassium Chloride Carbon Dioxide Anion Gap BUN Creatinine Est GFR ( Amer) Est GFR (MDRD) Non-Af Glucose POC Glucose 237 H Lactic Acid Calcium Phosphorus Magnesium Total Bilirubin Direct Bilirubin Neonat Total Bilirubin Neonat Direct Bilirubin Neonat Indirect Bili AST ALT Alkaline Phosphatase NT-Pro-B Natriuret Pep 6360 H Total Protein Albumin Urine Color Urine Appearance Urine pH Ur Specific [place] Urine Protein Urine Glucose (UA) Urine Ketones Urine Blood Urine Nitrite Urine Bilirubin Urine Urobilinogen Ur Leukocyte Esterase Urine WBC (Auto) Urine RBC (Auto) Urine Bacteria (Auto) Squamous Epi Cells Auto Urine Mucus (Auto) Urine Ascorbic Acid Gastric Occult Blood Influenza A (Rapid) Influenza B (Rapid) 05/03/19 05/03/19 05/03/19 08:30 13:08 17:48 WBC RBC Hgb Hct MCV MCH MCHC RDW Plt Count Lymph % (Auto) [place] % (Auto) Eos % (Auto) Baso % (Auto) Absolute Neuts (auto) Absolute Lymphs (auto) Absolute Monos (auto) Absolute Eos (auto) Absolute Basos (auto) Total Counted Seg Neutrophils % Seg Neuts % (Manual) Band Neutrophils % Lymphocytes % (Manual) Monocytes % (Manual) Eosinophils % (Manual) Basophils % (Manual) Abs Neuts (Manual) Abs Lymphs (Manual) Abs Monocytes (Manual) Absolute Eos (Manual) Abs Basophils (Manual) Toxic Granulation Toxic Vacuolation Clumped Platelets Platelet Comment Polychromasia Anisocytosis Schistocytes PT INR APTT Carbonic Acid HCO3/H2CO3 Ratio ABG pH ABG pCO2 ABG pO2 ABG HCO3 ABG Total CO2 ABG O2 Saturation ABG Base Excess VBG pH VBG pCO2 VBG HCO3 VBG Base Excess FiO2 Sodium Potassium Chloride Carbon Dioxide Anion Gap BUN Creatinine Est GFR ( Amer) Est GFR (MDRD) Non-Af Glucose POC Glucose 292 H 269 H Lactic Acid Calcium Phosphorus Magnesium Total Bilirubin Direct Bilirubin Neonat Total Bilirubin Neonat Direct Bilirubin Neonat Indirect Bili AST ALT Alkaline Phosphatase NT-Pro-B Natriuret Pep Total Protein Albumin Urine Color Urine Appearance Urine pH Ur Specific [place] Urine Protein Urine Glucose (UA) Urine Ketones Urine Blood Urine Nitrite Urine Bilirubin Urine Urobilinogen Ur Leukocyte Esterase Urine WBC (Auto) Urine RBC (Auto) Urine Bacteria (Auto) Squamous Epi Cells Auto Urine Mucus (Auto) Urine Ascorbic Acid Gastric Occult Blood POSITIVE Influenza A (Rapid) Influenza B (Rapid) 05/03/19 05/04/19 05/04/19 23:06 04:11 04:11 WBC 15.1 H D RBC 2.98 L Hgb 9.3 L Hct 27.3 L MCV 92 MCH 31.3 MCHC 34.1 RDW 15.5 H Plt Count 307 Lymph % (Auto) Not Reportable [place] % (Auto) Not Reportable Eos % (Auto) Not Reportable Baso % (Auto) Not Reportable Absolute Neuts (auto) Not Reportable Absolute Lymphs (auto) Not Reportable Absolute Monos (auto) Not Reportable Absolute Eos (auto) Not Reportable Absolute Basos (auto) Not Reportable Total Counted 100 Seg Neutrophils % Not Reportable Seg Neuts % (Manual) 80 H Band Neutrophils % 6 H Lymphocytes % (Manual) 7 L Monocytes % (Manual) 7 Eosinophils % (Manual) 0 Basophils % (Manual) 0 Abs Neuts (Manual) 13.0 H Abs Lymphs (Manual) 1.1 Abs Monocytes (Manual) 1.1 Absolute Eos (Manual) 0.0 Abs Basophils (Manual) 0.0 Toxic Granulation 1+ Toxic Vacuolation PRESENT Clumped Platelets Platelet Comment ADEQUATE Polychromasia SLIGHT Anisocytosis SLIGHT Schistocytes SLIGHT PT INR APTT Carbonic Acid HCO3/H2CO3 Ratio ABG pH ABG pCO2 ABG pO2 ABG HCO3 ABG Total CO2 ABG O2 Saturation ABG Base Excess VBG pH VBG pCO2 VBG HCO3 VBG Base Excess FiO2 Sodium 132.8 L Potassium 4.6 Chloride 102 Carbon Dioxide 23 Anion Gap 8 BUN 54 H Creatinine 4.53 H Est GFR ( Amer) 16 L Est GFR (MDRD) Non-Af 13 L Glucose 179 H POC Glucose 207 H Lactic Acid Calcium 8.0 L Phosphorus Magnesium 2.0 Total Bilirubin Direct Bilirubin Neonat Total Bilirubin Neonat Direct Bilirubin Neonat Indirect Bili AST ALT Alkaline Phosphatase NT-Pro-B Natriuret Pep Total Protein Albumin Urine Color Urine Appearance Urine pH Ur Specific [place] Urine Protein Urine Glucose (UA) Urine Ketones Urine Blood Urine Nitrite Urine Bilirubin Urine Urobilinogen Ur Leukocyte Esterase Urine WBC (Auto) Urine RBC (Auto) Urine Bacteria (Auto) Squamous Epi Cells Auto Urine Mucus (Auto) Urine Ascorbic Acid Gastric Occult Blood Influenza A (Rapid) Influenza B (Rapid) 05/04/19 05/04/19 05/04/19 04:25 05:15 13:49 WBC RBC Hgb Hct MCV MCH MCHC RDW Plt Count Lymph % (Auto) [place] % (Auto) Eos % (Auto) Baso % (Auto) Absolute Neuts (auto) Absolute Lymphs (auto) Absolute Monos (auto) Absolute Eos (auto) Absolute Basos (auto) Total Counted Seg Neutrophils % Seg Neuts % (Manual) Band Neutrophils % Lymphocytes % (Manual) Monocytes % (Manual) Eosinophils % (Manual) Basophils % (Manual) Abs Neuts (Manual) Abs Lymphs (Manual) Abs Monocytes (Manual) Absolute Eos (Manual) Abs Basophils (Manual) Toxic Granulation Toxic Vacuolation Clumped Platelets Platelet Comment Polychromasia Anisocytosis Schistocytes PT INR APTT Carbonic Acid 1.20 HCO3/H2CO3 Ratio 18:1 ABG pH 7.37 ABG pCO2 39.8 ABG pO2 54.5 L ABG HCO3 22.6 ABG Total CO2 23.9 ABG O2 Saturation 87.7 L ABG Base Excess -2.4 VBG pH VBG pCO2 VBG HCO3 VBG Base Excess FiO2 21% Sodium Potassium Chloride Carbon Dioxide Anion Gap BUN Creatinine Est GFR ( Amer) Est GFR (MDRD) Non-Af Glucose POC Glucose 204 H 174 H Lactic Acid Calcium Phosphorus Magnesium Total Bilirubin Direct Bilirubin Neonat Total Bilirubin Neonat Direct Bilirubin Neonat Indirect Bili AST ALT Alkaline Phosphatase NT-Pro-B Natriuret Pep Total Protein Albumin Urine Color Urine Appearance Urine pH Ur Specific [place] Urine Protein Urine Glucose (UA) Urine Ketones Urine Blood Urine Nitrite Urine Bilirubin Urine Urobilinogen Ur Leukocyte Esterase Urine WBC (Auto) Urine RBC (Auto) Urine Bacteria (Auto) Squamous Epi Cells Auto Urine Mucus (Auto) Urine Ascorbic Acid Gastric Occult Blood Influenza A (Rapid) Influenza B (Rapid) 05/04/19 05/04/19 05/04/19 18:35 23:02 23:50 WBC RBC Hgb Hct MCV MCH MCHC RDW Plt Count Lymph % (Auto) [place] % (Auto) Eos % (Auto) Baso % (Auto) Absolute Neuts (auto) Absolute Lymphs (auto) Absolute Monos (auto) Absolute Eos (auto) Absolute Basos (auto) Total Counted Seg Neutrophils % Seg Neuts % (Manual) Band Neutrophils % Lymphocytes % (Manual) Monocytes % (Manual) Eosinophils % (Manual) Basophils % (Manual) Abs Neuts (Manual) Abs Lymphs (Manual) Abs Monocytes (Manual) Absolute Eos (Manual) Abs Basophils (Manual) Toxic Granulation Toxic Vacuolation Clumped Platelets Platelet Comment Polychromasia Anisocytosis Schistocytes PT INR APTT Carbonic Acid HCO3/H2CO3 Ratio ABG pH ABG pCO2 ABG pO2 ABG HCO3 ABG Total CO2 ABG O2 Saturation ABG Base Excess VBG pH VBG pCO2 VBG HCO3 VBG Base Excess FiO2 Sodium Potassium Chloride Carbon Dioxide Anion Gap BUN Creatinine Est GFR ( Amer) Est GFR (MDRD) Non-Af Glucose POC Glucose 152 H 129 H 136 H Lactic Acid Calcium Phosphorus Magnesium Total Bilirubin Direct Bilirubin Neonat Total Bilirubin Neonat Direct Bilirubin Neonat Indirect Bili AST ALT Alkaline Phosphatase NT-Pro-B Natriuret Pep Total Protein Albumin Urine Color Urine Appearance Urine pH Ur Specific [place] Urine Protein Urine Glucose (UA) Urine Ketones Urine Blood Urine Nitrite Urine Bilirubin Urine Urobilinogen Ur Leukocyte Esterase Urine WBC (Auto) Urine RBC (Auto) Urine Bacteria (Auto) Squamous Epi Cells Auto Urine Mucus (Auto) Urine Ascorbic Acid Gastric Occult Blood Influenza A (Rapid) Influenza B (Rapid) Chest X-Ray 05/02/19 00:00 IMPRESSION: Cardiomegaly with extensive bilateral airspace opacities. Endotracheal and enteric tubes in place, as above copyright 2011 [employer]- All Rights Reserved Chest X-Ray 05/02/19 10:19 IMPRESSION: Bibasilar pneumonitis. Chest X-Ray 05/04/19 05:00 IMPRESSION: Markedly improved aeration bilaterally, likely resolving edema. Retraction of the endotracheal tube with tip overlying the proximal thoracic trachea, 10.5 cm above the payton. Enteric tube side port overlies distal esophagus. Consider repositioning. Patient's 24-hour intake is 902 mL. 24-hour output is 775 mL. Echocardiogram done today 05/04/2019.: The left ventricle is mildly to moderately dilated. There is mild concentric left ventricular hypertrophy. LV EF is 40% to 45%% Left ventricular systolic function is moderately reduced. Doppler measurements suggest impaired left ventricular relaxation, which is associated with grade I/IV or mild diastolic dysfunction By tissue dopplers. There is moderate global hypokinesis of the left ventricle. There is no thrombus. No ASD ,VSD , or PFO seen. The right ventricle is not well visualized secondary to technical limitations The right atrium is mildly dilated. The left atrium is mildly dilated. There is mild mitral annular calcification. There is no evidence of mitral valve prolapse. There is no vegetation seen on the mitral valve. There is no mitral valve stenosis. There is a trace amount of mitral regurgitation There is no aortic valvular vegetation. There is no aortic valve stenosis There is no LVOT obstruction. There is aortic sclerosis without aortic stenosis. No aortic regurgitation is present. There is no tricuspid stenosis. There is a mild amount of tricuspid regurgitation RVSP is 55 to 60 mm of Hg with RA mean of 15 to 20. There is moderate to severe pulmonary hypertension by echo There is no pulmonic valvular stenosis. There is no pulmonic valvular regurgitation. The aortic root is normal size. The inferior vena cava appeared dilated and decreased < 50% with respiration (RAP 15-20 mmHg) IMPRESSION RECOMMENDATION: 1. Acute respiratory failure. Patient required intubation. Now patient extubated. This is secondary to acute volume overload systolic heart failure and biventricular acute on chronic systolic heart failure and acute on chronic kidney disease significant pulmonary hypertension. 2. Acute on chronic biventricular systolic heart failure: Continue diuresis. Once renal function stabilizes we will start the patient on afterload reduction and Toprol-XL. 3. Acute on chronic renal failure: Nephrology on board. 4. Dilated cardiomyopathy with moderately reduced LV ejection fraction 5. Moderate to severe pulmonary hypertension: 6. Hypertension: Continue antihypertensives 7. Diabetes mellitus: Continue antidiabetic regimen and Accu-Cheks as per protocol 8. History of EtOH abuse: Watch for withdrawal. Medication reviewed. Medical regimen and management plan discussed with the vehicle assembler. Medical decision making is now of moderate complexity. 60 minutes spent on the patient with more than 50% of time spent in direct patient care. Will follow.
[2019-05-04] MEDS: ATORVASTATIN CALCIUM 40 MG TABLET NG SCH (21:08)
--- NOTE | 2019-05-04 22:45 | PDOC CONSULTATION ---
Consultation Consult Date: 05/04/19 Provider Consulted: PEGGY TORRES Consult reason:: YANE on CKD History of Present Illness Admission Date/PCP: 05/02/19 23:58 PEGGY TORRES MD History of Present Illness: JARED HORVATH JR is a 58 year old male known to me with history of chronic kidney disease stage IV diabetic nephropathy, diabetes mellitus type 2, attention, biventricular congestive heart failure, pulmonary hypertension and chronic bilateral lymphedema who presented to the emergency room on May 01 because of nausea, vomiting multiple times associated with loose stools. Patient was given 3 L of IV fluids in the emergency room. Patient was initially admitted in the floor for acute gastroenteritis but few hours after admission the patient went into acute respiratory distress requiring intubation and mechanical ventilation and just transferred to the intensive care unit. When I saw the patient is morning he is a still intubated but in the process of being weaned off to be extubated sometime today. Upon admission the patient had a BUN of 37, creatinine of 3.47 with EGFR of 22. Today the patient had a BUN of 54, creatinine of 4.53 with EGFR of 16. Patient's baseline creatinine is around 3-3.2 with EGFR anywhere between 23-26. He is known to have nephrotic range proteinuria between 8 to 9 g. I did extensive work-up on this patient with regards to his proteinuria for which he was found to be negative for paraproteinemia, vasculitis and autoimmune disease. Due to nephrotic range proteinuria I talked to the patient to have a kidney biopsy as an outpatient but he declined to do this a couple of times. So current consideration is diabetic nephropathy as the cause of his chronic kidney disease but cannot completely exclude other glomerular disease including memb ranous nephropathy or FSGS. The patient has made only about 775 mL of urine output for the past 24 hours. He was given a dose of Lasix 40 mg IV which seems to improve the patient's urine output today. Patient was placed on torsemide to be started today per NG. Patient appears to be hemodynamically stable otherwise. Past Medical History Cardiac Medical History: Reports: CHF-Diastolic, CHF-Systolic, Hyperlipidemia, Hypertension-primary, Peripheral Vascular Disease, Pulmonary Hypertension Pulmonary Medical History: Reports: Chronic Obstructive Pulmonary Disease (COPD), Pneumonia, Respiratory Failure Endocrine Medical History: Reports: Diabetes Mellitus Type 2 Complications of Diabetes: Reports: Autonomic Neuropathy, Nephropathy Renal/ Medical History: Reports: Chronic Kidney Disease Stage IV, Hyperkalemia, Hyperphosphatemia, Secondary Hyperparathyroidism, Other - Chronic bilateral lymphedema GI Medical History: Reports: Peptic Ulcer Disease Musculoskeltal Medical History: Reports: Arthritis Past Surgical History Past Surgical History: Reports: Orthopedic Surgery - 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 Masterson Smoking Status: Never Smoker Electronic Cigarette use?: No Frequency of Alcohol Use: Heavy Hx Recreational Drug Use: No Drugs: None Hx Prescription Drug Abuse: No - Advance Directive Resuscitation Status: Full Code Family History Family History: No history of kidney disease Parental Family History Reviewed: Yes Children Family History Reviewed: No Sibling(s) Family History Reviewed.: Yes Medication/Allergy Home Medications: Aspirin [Ecotrin 81 mg EC Tablet] 81 mg PO DAILY 12/12/18 Atorvastatin Calcium [Lipitor 40 mg Tablet] 40 mg PO QHS 12/12/18 Glipizide [Glipizide Xl] 10 mg PO [id number] 12/12/18 Amlodipine Besylate [Norvasc 10 mg Tablet] 10 mg PO DAILY #30 tablet 12/15/18 Ergocalciferol (Vitamin D2) [Vitamin D2] 50 mcg PO MO@1000 05/02/19 Furosemide [Lasix 40 mg Tablet] 40 mg PO QPM 05/02/19 Metoprolol Succinate [Toprol Xl 25 mg Tab.sr] 25 mg PO DAILY 05/02/19 Torsemide [Demadex 20 mg Tablet] 20 mg PO DAILY 05/02/19 Valsartan 320 mg PO DAILY 05/02/19 Allergies/Adverse Reactions: No Known Allergies Allergy (Verified 06/10/18 17:31) Review of Systems ROS unobtainable: Due to endotracheal tube Physical Exam Vital Signs: Temp Pulse Resp BP Pulse Ox 96.4 F L 89 14 138/88 H 93 05/04/19 12:00 05/04/19 12:12 05/04/19 12:12 05/04/19 12:00 05/04/19 12:12 Intake & Output 05/03/19 05/04/19 05/05/19 06:59 06:59 06:59 Intake Total 902 45 Output Total 775 525 Balance 127 -480 Weight 125.6 kg Exam: General appearance: Currently still intubated and is being weaned off sedation Head exam: PRESENT: atraumatic, normocephalic Eye exam: PRESENT: Eyes are closed Mouth exam: PRESENT: ET tube in place Neck exam: PRESENT: full ROM. ABSENT: carotid bruit, JVD, lymphadenopathy, thyromegaly Respiratory exam: PRESENT: Slightly coarse to auscultation bilaterally. ABSENT: rales, rhonchi, stridor, wheezes Cardiovascular exam: PRESENT: RRR, +S1, +S2. ABSENT: systolic murmur Pulses: PRESENT: normal radial pulses, normal dorsalis pedis pulses GI/Abdominal exam: PRESENT: normal bowel sounds, soft. ABSENT: guarding, mass, tenderness Rectal exam: Deferred Extremities exam: PRESENT: full ROM. Sensitive anasarca with upper extremity edema and grade 2 bilateral lower extremity edema up to the thighs ABSENT: calf tenderness Musculoskeletal: PRESENT: full ROM. ABSENT: deformity Neurological exam: [PRESENT: Still sedated Psychiatric exam: PRESENT: Cannot be assessed at this time Skin exam: PRESENT: intact, dry, warm. ABSENT: rash Results Laboratory Results: 05/04/19 04:11 05/04/19 04:11 05/04/19 05/04/19 05/04/19 04:11 04:11 04:25 WBC 15.1 H D RBC 2.98 L Hgb 9.3 L Hct 27.3 L MCV 92 MCH 31.3 MCHC 34.1 RDW 15.5 H Plt Count 307 Seg Neutrophils % Not Reportable Carbonic Acid 1.20 HCO3/H2CO3 Ratio 18:1 ABG pH 7.37 ABG pCO2 39.8 ABG pO2 54.5 L ABG HCO3 22.6 ABG O2 Saturation 87.7 L ABG Base Excess -2.4 FiO2 21% Sodium 132.8 L Potassium 4.6 Chloride 102 Carbon Dioxide 23 Anion Gap 8 BUN 54 H Creatinine 4.53 H Est GFR ( Amer) 16 L Glucose 179 H Calcium 8.0 L Magnesium 2.0 05/02/19 10:50 Blood Blood Culture - Final Group B Beta Streptococcus 05/03/19 01:03 NT-Pro-B Natriuret Pep 6360 H Impressions: Chest X-Ray 05/04/19 05:00 IMPRESSION: Markedly improved aeration bilaterally, likely resolving edema. Retraction of the endotracheal tube with tip overlying the proximal thoracic trachea, 10.5 cm above the [place]. Enteric tube side port overlies distal esophagus. Consider repositioning. Assessment & Plan - Diagnosis (1) Acute kidney injury superimposed on chronic kidney disease Is this a current diagnosis for this admission?: Yes Plan: Acute worsening of the patient's kidney function could be secondary to prerenal azotemia secondary to acute exacerbation of congestive heart failure. Patient's urine output seems to be improving with diuretics. Continue the same. Patient does not need any acute renal replacement therapy at this point. Continue to monitor your kidney function and avoid nephrotoxic medications. Adjust medication doses according to kidney function with EGFR between 16-20. (2) Chronic kidney disease, stage IV (severe) Is this a current diagnosis for this admission?: Yes Plan: Most likely secondary to diabetic nephropathy with nephrotic range proteinuria. Baseline creatinine is around 3+. (3) Anemia Is this a current diagnosis for this admission?: Yes Plan: Secondary to acute illness. (4) Bacteremia due to group B Streptococcus Is this a current diagnosis for this admission?: Yes Plan: Currently on cefepime and vancomycin. (5) Hyponatremia Is this a current diagnosis for this admission?: Yes Plan: Likely due to hypervolemic state. (6) Anasarca Is this a current diagnosis for this admission?: Yes (7) Hyperphosphatemia Is this a current diagnosis for this admission?: Yes Plan: Patient will need phosphorus binders once he starts eating orally. Current phosphorus level is 5.8. (8) CHF (congestive heart failure) Qualifiers: Heart failure type: combined systolic and diastolic Heart failure chronicity: chronic Qualified Code(s): I50.42 - Chronic combined systolic (congestive) and diastolic (congestive) heart failure Is this a current diagnosis for this admission?: Yes Plan: Echocardiogram showed LVEF of 40 to 45%, LV is mild to moderately dilated, mild concentric LVH, grade 1/4 mild diastolic dysfunction with moderate to severe pul monary hypertension. (9) Gastroenteritis Is this a current diagnosis for this admission?: Yes (10) Hypertension Qualifiers: Hypertension type: essential hypertension Qualified Code(s): I10 - Essential (primary) hypertension Is this a current diagnosis for this admission?: Yes Plan: Currently with acceptable control. 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 Discussed with Dr. Avalos, ict programmer. - Time Time Spent: 50 to 70 Minutes
[2019-05-04] MEDS: CEFEPIME 1 GM/D5W RTU 1 GM/50 ML RTUPB IV SCH (23:05)
[2019-05-05] MEDS: IPRATROPIUM/ALBUTEROL 0.5-2.5 MG/3 ML AMPUL NEB SCH ×6 (00:09→20:15)
[2019-05-05 03:58] LABS: ABSOLUTE BASOPHILS # (AUTO) 0.1 10^3/uL (0.0-0.2); ABSOLUTE EOSINOPHILS # (AUTO) 0.1 10^3/uL (0.0-0.6); ABSOLUTE LYMPHOCYTES (AUTO) 0.8 10^3/uL (0.5-4.7); ABSOLUTE MONOCYTES (AUTO) 0.7 10^3/uL (0.1-1.4); ABSOLUTE NEUT (AUTO) 14.1 10^3/uL (1.7-8.2); BASOPHILS % (AUTO) 0.3 % (0-2); EOSINOPHILS % (AUTO) 0.4 % (0-6); HEMATOCRIT 32.3 % (37.9-51.0); HEMOGLOBIN 10.7 g/dL (13.5-17.0); LYMPHOCYTES % (AUTO) 5.1 % (13-45); MEAN CORPUSCULAR HEMOGLOBIN 30.3 pg (27.0-33.4); MEAN CORPUSCULAR HGB CONC 33.1 g/dL (32.0-36.0); MEAN CORPUSCULAR VOLUME 91 fl (80-97); MONOCYTES % (AUTO) 4.6 % (3-13); PLATELET COUNT 313 10^3/uL (150-450); RED BLOOD COUNT 3.53 10^6/uL (4.35-5.55); RED CELL DISTRIBUTION WIDTH 15.8 % (11.5-14.0); SEGMENTED NEUTROPHILS % (AUTO) 89.6 % (42-78); TOTAL CELLS COUNTED % (AUTO) 100 %; WHITE BLOOD COUNT 15.7 10^3/uL (4.0-10.5)
[2019-05-05 04:16] LABS: ANION GAP 9 (5-19); BLOOD UREA NITROGEN 54 mg/dL (7-20); CARBON DIOXIDE 24 mmol/L (22-30); CHLORIDE 103 mmol/L (98-107); GLUCOSE 112 mg/dL (75-110)
[2019-05-05 04:42] LABS: POTASSIUM 3.6 mmol/L (3.6-5.0)
[2019-05-05] MEDS: INSULIN REG, HUMAN 100 UNIT/ML 3 ML VIAL (PYX) SUBCUT SCH ×4 (05:14→23:18)
[2019-05-05] MEDS ORDERED: LORAZEPAM INJ 2 MG/1 ML VIAL IV PRN (07:32)
[2019-05-05] MEDS: METOPROLOL TARTRATE 25 MG TABLET NG SCH ×2 (09:31→21:27)
[2019-05-05] MEDS: VALSARTAN 160 MG TABLET NG SCH (09:31)
[2019-05-05] MEDS: AMLODIPINE BESYLATE 10 MG TABLET NG SCH (09:31)
[2019-05-05] MEDS: PANTOPRAZOLE SODIUM 40 MG VIAL IV SCH (09:31)
[2019-05-05] MEDS: TORSEMIDE 20 MG TABLET NG SCH (09:32)
[2019-05-05] MEDS: GLIPIZIDE 5 MG TABLET NG SCH ×2 (09:32→16:42)
[2019-05-05] MEDS ORDERED: POTASSIUM CHLORIDE 10 MEQ TABLET.ER PO ONE (10:39)
--- NOTE | 2019-05-05 10:39 | PDOC CRITICAL CARE PROG REPORT ---
General Date:: 05/05/19 ICU Day:: 3 Hospital Day:: 3 Resuscitation Status: Full Code Events in the past 12 to 24 Hours:: Extubated Review of systems relevant to events:: Neurological. Reason for ICU Addmission:: Respiratory Failure and intubation, now resolved - Medications: Medications reviewed and adjusted accordingly: Yes Vasopressors:: None Sedation:: None Physical Exam Vital Signs: Temp Pulse Resp BP Pulse Ox 98.4 F 98 21 H 163/89 H 98 05/05/19 08:00 05/05/19 08:24 05/05/19 08:24 05/05/19 08:00 05/05/19 08:30 Intake & Output 05/04/19 05/05/19 05/06/19 06:59 06:59 06:59 Intake Total 902 345 Output Total 775 5125 250 Balance 127 -4780 -250 Weight 125.6 kg 121 kg Weight/Height Weight 121 kg Height 6 ft 4 in General appearance: PRESENT: no acute distress, cooperative, other - Sleepy Head exam: PRESENT: atraumatic, normocephalic Eye exam: PRESENT: conjunctiva pink, EOMI, PERRLA. ABSENT: scleral icterus Ear exam: PRESENT: normal external ear exam Mouth exam: PRESENT: moist, tongue midline Respiratory exam: PRESENT: clear to auscultation liseth. ABSENT: rales, rhonchi, wheezes Cardiovascular exam: PRESENT: RRR, tachycardia. ABSENT: diastolic murmur, rubs, systolic murmur GI/Abdominal exam: PRESENT: normal bowel sounds, soft. ABSENT: distended, guarding, mass, organolmegaly, rebound, tenderness Rectal exam: PRESENT: deferred Gentrourinary exam: PRESENT: other - Diaz removed Extremities exam: PRESENT: full ROM. ABSENT: calf tenderness, clubbing, pedal edema Musculoskeletal exam: PRESENT: normal inspection Neurological exam: PRESENT: alert, altered, awake, oriented to person Psychiatric exam: PRESENT: appropriate affect, normal mood. ABSENT: homicidal ideation, suicidal ideation Skin exam: PRESENT: dry, intact, warm. ABSENT: cyanosis, rash Laboratory/Radiographs Laboratory Results: 05/05/19 03:31 05/05/19 03:31 05/05/19 05/05/19 03:31 03:31 WBC 15.7 H RBC 3.53 L Hgb 10.7 L Hct 32.3 L MCV 91 MCH 30.3 MCHC 33.1 RDW 15.8 H Plt Count 313 Seg Neutrophils % 89.6 H Sodium 136.2 L Potassium 3.6 D Chloride 103 Carbon Dioxide 24 Anion Gap 9 BUN 54 H Creatinine 4.08 H Est GFR ( Amer) 18 L Glucose 112 H Calcium 8.0 L 05/02/19 10:50 Blood Blood Culture - Final Group B Beta Streptococcus 05/03/19 01:03 NT-Pro-B Natriuret Pep 6360 H Impressions: Chest X-Ray 05/04/19 05:00 IMPRESSION: Markedly improved aeration bilaterally, likely resolving edema. Retraction of the endotracheal tube with tip overlying the proximal thoracic trachea, 10.5 cm above the payton. Enteric tube side port overlies distal esophagus. Consider repositioning. All labs, radiographs, diagnostic studies and EKGs were personally reviewed: Yes In addition, reports of radiographic and diagnostic studies were read: Yes Assessment and Plan - Diagnosis (1) CHF (congestive heart failure) Qualifiers: Heart failure type: combined systolic and diastolic Heart failure chronicity: chronic Qualified Code(s): I50.42 - Chronic combined systolic (congestive) and diastolic (congestive) heart failure Is this a current diagnosis for this admission?: Yes Plan: Resolved. Still puffy. (2) ETOH abuse Is this a current diagnosis for this admission?: Yes Plan: Mild WD symptoms. PRN ativan ordered. (3) Chronic kidney disease, stage III (moderate) Is this a current diagnosis for this admission?: Yes Plan: Cr better at 4.0 and GFR at 18. Dr. Douglas on board as consult. (4) Type 2 diabetes mellitus Qualifiers: Diabetes mellitus roasterman insulin use: without roasterman use Diabetes mellitus complication status: with kidney complications Diabetes mellitus complication detail: with chronic kidney disease Chronic kidney disease stage: stage 3 (moderate) Qualified Code(s): E11.22 - Type 2 diabetes mellitus with diabetic chronic kidney disease; N18.3 - Chronic kidney disease, stage 3 (moderate) Is this a current diagnosis for this admission?: Yes Plan: Controlled. Plan Summary: Will downgrade to floor status. Extra PO potassium due to diuretic. Critical Time Critical Time (minutes): 30 Level of Care: MEDICAL Anticipated discharge: Home Within: Other - Too soon to tell. -: 1. The care of a critical patient is a dynamic process. This note is a collections representative synopsis but static in nature. The timeframe for treatments given in order is not necessarily the actual time these treatments may have been done. 2. This patient requires critical care secondary to ongoing requirements for therapy not offered or safe outside the critical care environment. Transfer to a lower level of care will result in altered life or limb morbidity and mortality. 3. Multidisciplinary rounds completed. 4. ABCDE bundle addressed.
[2019-05-05] MEDS ORDERED: POTASSIUM CHLORIDE 20 MEQ PACKET PO ONE (11:00)
[2019-05-05] MEDS: HEPARIN SOD (PORCINE) 5,000 UNIT/ML 1 ML VIAL SUBCUT SCH ×2 (13:50→21:27)
--- NOTE | 2019-05-05 21:21 | PDOC PROGRESS REPORT ---
Subjective Progress Note for:: 05/05/19 Subjective:: Patient was extubated yesterday. He is currently much awake and communicating normally. He made Amount of urine output 5125 mL for the past 24 hours. He does not really verbalize any complaints at this point. He looks much better compared to previous. Reason For Visit: RESPIRATORY FAILURE Physical Exam Vital Signs: Temp Pulse Resp BP Pulse Ox 98.6 F 93 25 H 157/89 H 99 05/05/19 12:00 05/05/19 15:57 05/05/19 15:57 05/05/19 12:00 05/05/19 15:57 Intake & Output 05/04/19 05/05/19 05/06/19 06:59 06:59 06:59 Intake Total 902 345 Output Total 775 5125 500 Balance 127 -4780 -500 Weight 125.6 kg 121 kg Exam: General appearance: PRESENT: no acute distress, cooperative, well-developed, well-nourished Head exam: PRESENT: atraumatic, normocephalic Eye exam: PRESENT: conjunctiva slightly pale, PERRLA. ABSENT: scleral icterus Neck exam: ABSENT: JVD Respiratory exam: PRESENT: Normal breath sounds. ABSENT: crackles, rales, rhonchi, unlabored, wheezes Cardiovascular exam: PRESENT: Regular rate rhythm -+S1, +S2. ABSENT: diastolic murmur, systolic murmur GI/Abdominal exam: PRESENT: normal bowel sounds, soft. ABSENT: guarding, mass, tenderness Extremities exam: Grade 2 bilateral lower extremity pitting edema up to the thighs Neurological exam: PRESENT: alert, awake, oriented to person, place and time. Skin exam: PRESENT: dry, warm, Results Laboratory Results: 05/05/19 03:31 05/05/19 03:31 05/05/19 05/05/19 03:31 03:31 WBC 15.7 H RBC 3.53 L Hgb 10.7 L Hct 32.3 L MCV 91 MCH 30.3 MCHC 33.1 RDW 15.8 H Plt Count 313 Seg Neutrophils % 89.6 H Sodium 136.2 L Potassium 3.6 D Chloride 103 Carbon Dioxide 24 Anion Gap 9 BUN 54 H Creatinine 4.08 H Est GFR ( Amer) 18 L Glucose 112 H Calcium 8.0 L 05/03/19 01:03 NT-Pro-B Natriuret Pep 6360 H Impressions: Chest X-Ray 05/04/19 05:00 IMPRESSION: Markedly improved aeration bilaterally, likely resolving edema. Retraction of the endotracheal tube with tip overlying the proximal thoracic trachea, 10.5 cm above the payton. Enteric tube side port overlies distal esophagus. Consider repositioning. Assessment & Plan - Diagnosis (1) Acute kidney injury superimposed on chronic kidney disease Is this a current diagnosis for this admission?: Yes Plan: Patient has improved and excellent urine output. Kidney function is slowly improving as well. Patient does not require any acute renal replacement therapy at this time. Continue to monitor kidney function and avoid nephrotoxic medications. (2) Chronic kidney disease, stage IV (severe) Is this a current diagnosis for this admission?: Yes Plan: This is associated with nephrotic range proteinuria most likely secondary to diabetic nephropathy. Baseline creatinine is around 3. (3) Anemia Is this a current diagnosis for this admission?: Yes (4) Bacteremia due to group B Streptococcus Is this a current diagnosis for this admission?: Yes Plan: Patient was on IV cefepime and vancomycin which is currently discontinued. Defer to lye machine operator. (5) Hyponatremia Is this a current diagnosis for this admission?: Yes Plan: Improved with diuresis. (6) Anasarca Is this a current diagnosis for this admission?: Yes Plan: Continue torsemide. (7) Hyperphosphatemia Is this a current diagnosis for this admission?: Yes Plan: Will recheck phosphorus level as the patient's kidney function continues to improve. (8) CHF (congestive heart failure) Qualifiers: Heart failure type: combined systolic and diastolic Heart failure chronicity: chronic Qualified Code(s): I50.42 - Chronic combined systolic (congestive) and diastolic (congestive) heart failure Is this a current diagnosis for this admission?: Yes Plan: On torsemide. (9) Gastroenteritis Is this a current diagnosis for this admission?: Yes (10) Hypertension Qualifiers: Hypertension type: essential hypertension Qualified Code(s): I10 - Essential (primary) hypertension Is this a current diagnosis for this admission?: Yes (11) Type 2 diabetes mellitus Qualifiers: Diabetes mellitus intermediate teacher insulin use: without intermediate teacher use Diabetes mellitus complication status: with kidney complications Diabetes mellitus complication detail: with chronic kidney disease Chronic kidney disease stage: stage 3 (moderate) Qualified Code(s): E11.22 - Type 2 diabetes mellitus with diabetic chronic kidney disease; N18.3 - Chronic kidney disease, stage 3 (moderate) Is this a current diagnosis for this admission?: Yes - Time Time with patient: 15-25 minutes
[2019-05-05] MEDS: ATORVASTATIN CALCIUM 40 MG TABLET NG SCH (21:27)
[2019-05-05] MEDS: FAMOTIDINE 20 MG TABLET PO SCH (21:27)
--- NOTE | 2019-05-05 21:58 | Progress Note ---
Provider Note Provider Note: CARDIOLOGY PROGRESS NOTE by Dr. Deonna Iniguez on 05/05/2019. SUBJECTIVE: The patient is more awake and alert today. Denies chest pain or discomfort. There is no shortness of breath. There is no PND orthopnea. His chronic leg edema has not increased. His urine output is slightly better. Nephrology is on the case. At present no need for renal replacement as per nephrology opinion. There is no arrhythmia seen on the monitor. PHYSICAL EXAMINATION: The patient is mild to moderately obese. At present in no acute distress. Selected Entries 05/05/19 05/05/19 05/05/19 08:30 10:00 12:00 Temperature 98.6 F Temperature Oral Source Pulse Rate 92 Respiratory 22 H Rate Blood Pressure 163/89 H 157/89 H [Right Upper Arm] Blood Pressure 113 111 Mean [Right Upper Arm] O2 Sat by Pulse 98 95 97 Oximetry Oxygen Delivery Nasal Cannula Method ( includes room air) Oxygen Flow 3 Rate HEAD: Is atraumatic normocephalic. EYES: Pupils are equal round regular reactive to light. ENT is negative. NECK: Is supple there is mild JVD present. Carotids are equal there is no bruits. There is no lymphadenopathy. There is no goiter. There is no accessory muscle respiration use. LUNGS: There is a few bibasilar fine rales. There is scattered rhonchi. HEART: S1-S2 is heard. There is no S3 gallop. There is no S4 gallop. There is murmur of mitral regurgitation and tricuspid regurgitation present. There is no rub. ABDOMEN: Soft mildly obese. Nontender there is no paraspinal megaly. Bowel sounds are well heard. Extremities femorals are diminished. Leg pulses are diminished there is chronic lymphedema with also mild pitting edema bilaterally. There is chronic venous stasis dermatitis changes. Leg pulses are difficult to palpate. There is no DVT or cellulitis. There is no cyanosis or clubbing. MANAGER MULTICULTURAL: The patient drowsy but moves all 4 extremities. PSYCHIATRIC: In view of the patient's drowsiness psychiatric exam not performed. Labs- All tests 24 hr 05/04/19 05/04/19 05/05/19 23:02 23:50 03:31 WBC 15.7 H RBC 3.53 L Hgb 10.7 L Hct 32.3 L MCV 91 MCH 30.3 MCHC 33.1 RDW 15.8 H Plt Count 313 Lymph % (Auto) 5.1 L [place] % (Auto) 4.6 Eos % (Auto) 0.4 Baso % (Auto) 0.3 Absolute Neuts (auto) 14.1 H Absolute Lymphs (auto) 0.8 Absolute Monos (auto) 0.7 Absolute Eos (auto) 0.1 Absolute Basos (auto) 0.1 Seg Neutrophils % 89.6 H Sodium Potassium Chloride Carbon Dioxide Anion Gap BUN Creatinine Est GFR ( Amer) Est GFR (MDRD) Non-Af Glucose POC Glucose 129 H 136 H Calcium 05/05/19 05/05/19 05/05/19 03:31 05:13 12:27 WBC RBC Hgb Hct MCV MCH MCHC RDW Plt Count Lymph % (Auto) [place] % (Auto) Eos % (Auto) Baso % (Auto) Absolute Neuts (auto) Absolute Lymphs (auto) Absolute Monos (auto) Absolute Eos (auto) Absolute Basos (auto) Seg Neutrophils % Sodium 136.2 L Potassium 3.6 D Chloride 103 Carbon Dioxide 24 Anion Gap 9 BUN 54 H Creatinine 4.08 H Est GFR ( Amer) 18 L Est GFR (MDRD) Non-Af 15 L Glucose 112 H POC Glucose 125 H 115 H Calcium 8.0 L 05/05/19 19:04 WBC RBC Hgb Hct MCV MCH MCHC RDW Plt Count Lymph % (Auto) [place] % (Auto) Eos % (Auto) Baso % (Auto) Absolute Neuts (auto) Absolute Lymphs (auto) Absolute Monos (auto) Absolute Eos (auto) Absolute Basos (auto) Seg Neutrophils % Sodium Potassium Chloride Carbon Dioxide Anion Gap BUN Creatinine Est GFR ( Amer) Est GFR (MDRD) Non-Af Glucose POC Glucose 164 H Calcium Chest X-Ray 05/02/19 00:00 IMPRESSION: Cardiomegaly with extensive bilateral airspace opacities. Endotracheal and enteric tubes in place, as above copyright 2011 [employer]- All Rights Reserved Chest X-Ray 05/02/19 10:19 IMPRESSION: Bibasilar pneumonitis. Chest X-Ray 05/04/19 05:00 IMPRESSION: Markedly improved aeration bilaterally, likely resolving edema. Retraction of the endotracheal tube with tip overlying the proximal thoracic trachea, 10.5 cm above the payton. Enteric tube side port overlies distal esophagus. Consider repositioning. IMPRESSION RECOMMENDATION: 1. Acute respiratory failure. Patient required intubation. Now patient extubated. This is secondary to acute volume overload systolic heart failure and biventricular acute on chronic systolic heart failure and acute on chronic kidney disease significant pulmonary hypertension. 2. Acute on chronic biventricular systolic heart failure: Continue diuresis. Once renal function stabilizes we will start the patient on afterload reduction and Toprol-XL. 3. Acute on chronic renal failure: Nephrology on board. 4. Dilated cardiomyopathy with moderately reduced LV ejection fraction 5. Moderate to severe pulmonary hypertension: 6. Hypertension: Continue antihypertensives 7. Diabetes mellitus: Continue antidiabetic regimen and Accu-Cheks as per protocol 8. History of EtOH abuse: No signs of withdrawal Medications reviewed. Medical regimen and management plan discussed with life skills coordinator and steam presser. Medical decision making is a moderate complexity. 40 minutes spent on this patient more than 50% of time spent in direct patient care. Will follow.
[2019-05-06] MEDS ORDERED: DIPHENHYDRAMINE HCL 25 MG CAPSULE ONE (00:24)
[2019-05-06] MEDS ORDERED: DIPHENHYDRAMINE HCL 25 MG CAPSULE PO ONE (00:30)
[2019-05-06] MEDS: IPRATROPIUM/ALBUTEROL 0.5-2.5 MG/3 ML AMPUL NEB SCH ×6 (00:39→20:39)
[2019-05-06 03:34] LABS: HEMATOCRIT 32.6 % (37.9-51.0); HEMOGLOBIN 11.1 g/dL (13.5-17.0); MEAN CORPUSCULAR HEMOGLOBIN 30.9 pg (27.0-33.4); MEAN CORPUSCULAR HGB CONC 33.9 g/dL (32.0-36.0); MEAN CORPUSCULAR VOLUME 91 fl (80-97); PLATELET COUNT 350 10^3/uL (150-450); RED BLOOD COUNT 3.58 10^6/uL (4.35-5.55); RED CELL DISTRIBUTION WIDTH 15.7 % (11.5-14.0); WHITE BLOOD COUNT 12.2 10^3/uL (4.0-10.5)
[2019-05-06 03:57] LABS: ANION GAP 7 (5-19); BLOOD UREA NITROGEN 53 mg/dL (7-20); CALCIUM 8.3 mg/dL (8.4-10.2); CARBON DIOXIDE 27 mmol/L (22-30); CHLORIDE 103 mmol/L (98-107); GLUCOSE 103 mg/dL (75-110); POTASSIUM 4.3 mmol/L (3.6-5.0)
[2019-05-06] MEDS: INSULIN REG, HUMAN 100 UNIT/ML 3 ML VIAL (PYX) SUBCUT SCH ×3 (06:25→17:31)
[2019-05-06] MEDS: HEPARIN SOD (PORCINE) 5,000 UNIT/ML 1 ML VIAL SUBCUT SCH ×3 (06:25→21:28)
--- NOTE | 2019-05-06 08:37 | PDOC CRITICAL CARE PROG REPORT ---
General Date:: 05/06/19 Hospital Day:: 4 Resuscitation Status: Full Code Events in the past 12 to 24 Hours:: More oriented, needs to start mobilizing. Review of systems relevant to events:: Neurological, CV Reason for ICU Addmission:: Respiratory Failure and intubation, now resolved - Medications: Medications reviewed and adjusted accordingly: Yes Vasopressors:: None Sedation:: None Physical Exam Vital Signs: Temp Pulse Resp BP Pulse Ox 98.6 F 96 26 H 156/89 H 97 05/05/19 12:00 05/06/19 07:00 05/06/19 04:31 05/05/19 21:30 05/06/19 04:31 Intake & Output 05/05/19 05/06/19 05/07/19 06:59 06:59 06:59 Intake Total 345 Output Total 5125 2200 Balance -4780 -2200 Weight 121 kg 120.3 kg Weight/Height Weight 120.3 kg Height 6 ft 4 in General appearance: PRESENT: no acute distress, well-developed, well-nourished Head exam: PRESENT: atraumatic, normocephalic Eye exam: PRESENT: conjunctiva pink, EOMI, PERRLA. ABSENT: scleral icterus Ear exam: PRESENT: normal external ear exam Mouth exam: PRESENT: moist, tongue midline Respiratory exam: PRESENT: clear to auscultation liseth. ABSENT: rales, rhonchi, wheezes Cardiovascular exam: PRESENT: RRR, tachycardia - Mild tachycardia. ABSENT: diastolic murmur, rubs, systolic murmur GI/Abdominal exam: PRESENT: normal bowel sounds, soft. ABSENT: distended, guarding, mass, organolmegaly, rebound, tenderness Rectal exam: PRESENT: deferred Extremities exam: PRESENT: full ROM. ABSENT: calf tenderness, clubbing, pedal edema Musculoskeletal exam: PRESENT: normal inspection Neurological exam: PRESENT: alert, awake, oriented to person, oriented to place Psychiatric exam: PRESENT: appropriate affect, normal mood. ABSENT: homicidal ideation, suicidal ideation Skin exam: PRESENT: dry, intact, warm. ABSENT: cyanosis, rash Laboratory/Radiographs Laboratory Results: 05/06/19 03:18 05/06/19 03:18 05/06/19 05/06/19 03:18 03:18 WBC 12.2 H RBC 3.58 L Hgb 11.1 L Hct 32.6 L MCV 91 MCH 30.9 MCHC 33.9 RDW 15.7 H Plt Count 350 Sodium 137.0 Potassium 4.3 Chloride 103 Carbon Dioxide 27 Anion Gap 7 BUN 53 H Creatinine 3.84 H Est GFR ( Amer) 20 L Glucose 103 Calcium 8.3 L 05/03/19 01:03 NT-Pro-B Natriuret Pep 6360 H Impressions: Chest X-Ray 05/04/19 05:00 IMPRESSION: Markedly improved aeration bilaterally, likely resolving edema. Retraction of the endotracheal tube with tip overlying the proximal thoracic t rachea, 10.5 cm above the payton. Enteric tube side port overlies distal esophagus. Consider repositioning. EKG: Mild sinus tachycardia. All labs, radiographs, diagnostic studies and EKGs were personally reviewed: Yes In addition, reports of radiographic and diagnostic studies were read: Yes Assessment and Plan - Diagnosis (1) CHF (congestive heart failure) Qualifiers: Heart failure type: combined systolic and diastolic Heart failure chronicity: chronic Qualified Code(s): I50.42 - Chronic combined systolic (congestive) and diastolic (congestive) heart failure Is this a current diagnosis for this admission?: Yes Plan: Resolved (2) ETOH abuse Is this a current diagnosis for this admission?: Yes Plan: Resolved (3) Chronic kidney disease, stage III (moderate) Is this a current diagnosis for this admission?: Yes Plan: Inactive (4) Type 2 diabetes mellitus Qualifiers: Diabetes mellitus longwall shearer operator insulin use: without alf use Diabetes mellitus complication status: with kidney complications Diabetes mellitus complication detail: with chronic kidney disease Chronic kidney disease stage: stage 3 (moderate) Qualified Code(s): E11.22 - Type 2 diabetes mellitus with diabetic chronic kidney disease; N18.3 - Chronic kidney disease, stage 3 (moderate) Is this a current diagnosis for this admission?: Yes Plan: Controlled. (5) Physical deconditioning Is this a current diagnosis for this admission?: Yes Plan: PT ordered. OK to transfer. Plan Summary: Mobilize and transfer to regular floor. Critical Time Critical Time (minutes): 25 Level of Care: MEDICAL Anticipated discharge: Home Within: within 72 hours -: 1. The care of a critical patient is a dynamic process. This note is a entry level sales representative synopsis but static in nature. The timeframe for treatments given in order is not necessarily the actual time these treatments may have been done. 2. This patient requires critical care secondary to ongoing requirements for t herapy not offered or safe outside the critical care environment. Transfer to a lower level of care will result in altered life or limb morbidity and mortality. 3. Multidisciplinary rounds completed. 4. ABCDE bundle addressed.
[2019-05-06] MEDS: GLIPIZIDE 5 MG TABLET NG SCH ×2 (08:38→15:24)
[2019-05-06] MEDS: FAMOTIDINE 20 MG TABLET PO SCH ×2 (10:52→21:28)
[2019-05-06] MEDS: ASPIRIN 81 MG TABLET, CHEWABLE NG SCH (10:52)
[2019-05-06] MEDS: AMLODIPINE BESYLATE 10 MG TABLET NG SCH (10:52)
[2019-05-06] MEDS: METOPROLOL TARTRATE 25 MG TABLET NG SCH ×2 (10:53→21:28)
[2019-05-06] MEDS: TORSEMIDE 20 MG TABLET NG SCH (10:54)
[2019-05-06] MEDS: VALSARTAN 160 MG TABLET NG SCH (10:55)
--- NOTE | 2019-05-06 16:43 | Progress Note ---
Provider Note Provider Note: CARDIOLOGY PROGRESS NOTE by Dr. Deonna Iniguez on 05/06/2019. SUBJECTIVE: The patient denies any chest pain or discomfort. He denies any shortness of breath. There is no PND orthopnea. There is no arrhythmia seen on the monitor. There is no TIA CVA symptoms. The patient has been downgraded to telemetry. PHYSICAL EXAMINATION: The patient mild to moderately obese. In no acute distress. Selected Entries 05/06/19 05/06/19 10:00 12:27 Temperature 98.9 F Temperature Oral Source Pulse Rate 95 Respiratory 25 H Rate Blood Pressure 160/93 H [Right Upper Arm] Blood Pressure 115 Mean [Right Upper Arm] Blood Pressure Supine Position [Right Upper Arm] O2 Sat by Pulse 95 Oximetry Oxygen Delivery Nasal Cannula Method ( includes room air) Fraction of 21 Inspired Oxygen (FIO2) HEAD: Is atraumatic normocephalic. EYES: Pupils are equal round regular reactive to light. ENT is negative. NECK: Is supple there is mild JVD present. Carotids are equal there is no bruits. There is no lymphadenopathy. There is no goiter. There is no accessory muscle respiration use. LUNGS: There is a few bibasilar fine rales. There is scattered rhonchi. HEART: S1-S2 is heard. There is no S3 gallop. There is no S4 gallop. There is murmur of mitral regurgitation and tricuspid regurgitation present. There is no rub. ABDOMEN: Soft mildly obese. Nontender there is no paraspinal megaly. Bowel sounds are well heard. Extremities femorals are diminished. Leg pulses are diminished there is chronic lymphedema with also mild pitting edema bilaterally. There is chronic venous stasis dermatitis changes. Leg pulses are difficult to palpate. There is no DVT or cellulitis. There is no cyanosis or clubbing. FARM MACHINERY ASSEMBLER: The patient drowsy but moves all 4 extremities. PSYCHIATRIC: In view of the patient's drowsiness psychiatric exam not performed, Labs- All tests 24 hr 05/06/19 05/06/19 05/06/19 03:18 03:18 06:21 WBC 12.2 H RBC 3.58 L Hgb 11.1 L Hct 32.6 L MCV 91 MCH 30.9 MCHC 33.9 RDW 15.7 H Plt Count 350 Sodium 137.0 Potassium 4.3 Chloride 103 Carbon Dioxide 27 Anion Gap 7 BUN 53 H Creatinine 3.84 H Est GFR ( Amer) 20 L Est GFR (MDRD) Non-Af 16 L Glucose 103 POC Glucose 102 Calcium 8.3 L 05/06/19 05/06/19 05/06/19 12:10 17:13 23:57 WBC RBC Hgb Hct MCV MCH MCHC RDW Plt Count Sodium Potassium Chloride Carbon Dioxide Anion Gap BUN Creatinine Est GFR ( Amer) Est GFR (MDRD) Non-Af Glucose POC Glucose 157 H 173 H 211 H Calcium Chest X-Ray 05/02/19 00:00 IMPRESSION: Cardiomegaly with extensive bilateral airspace opacities. Endotracheal and enteric tubes in place, as above copyright 2011 [employer]- All Rights Reserved Chest X-Ray 05/02/19 10:19 IMPRESSION: Bibasilar pneumonitis. Chest X-Ray 05/04/19 05:00 IMPRESSION: Markedly improved aeration bilaterally, likely resolving edema. Retraction of the endotracheal tube with tip overlying the proximal thoracic trachea, 10.5 cm above the payton. Enteric tube side port overlies distal esophagus. Consider repositioning. IMPRESSION RECOMMENDATION: 1. Acute respiratory failure. Patient required intubation. Now patient extubated. This is secondary to acute volume overload systolic heart failure and biventricular acute on chronic systolic heart failure and acute on chronic kidney disease significant pulmonary hypertension. 2. Acute on chronic biventricular systolic heart failure: Continue diuresis. Once renal function stabilizes we will start the patient on afterload reduction and Toprol-XL. 3. Acute on chronic renal failure: Nephrology on board. 4. Dilated cardiomyopathy with moderately reduced LV ejection fraction 5. Moderate to severe pulmonary hypertension: 6. Hypertension: Continue antihypertensives 7. Diabetes mellitus: Continue antidiabetic regimen and Accu-Cheks as per protocol 8. History of EtOH abuse: No signs of withdrawal Medications reviewed. Medical regimen and management plan discussed with youth development specialist and senior net engineer. Medical decision making is a moderate complexity. 40 minutes spent on this patient more than 50% of time spent in direct patient care. Will follow.
[2019-05-06] MEDS: ATORVASTATIN CALCIUM 40 MG TABLET NG SCH (21:29)
[2019-05-07] MEDS: IPRATROPIUM/ALBUTEROL 0.5-2.5 MG/3 ML AMPUL NEB SCH ×6 (00:03→20:35)
[2019-05-07 03:44] LABS: HEMATOCRIT 32.4 % (37.9-51.0); HEMOGLOBIN 10.9 g/dL (13.5-17.0); MEAN CORPUSCULAR HEMOGLOBIN 30.7 pg (27.0-33.4); MEAN CORPUSCULAR HGB CONC 33.7 g/dL (32.0-36.0); MEAN CORPUSCULAR VOLUME 91 fl (80-97); PLATELET COUNT 340 10^3/uL (150-450); RED BLOOD COUNT 3.57 10^6/uL (4.35-5.55); RED CELL DISTRIBUTION WIDTH 15.4 % (11.5-14.0); WHITE BLOOD COUNT 9.1 10^3/uL (4.0-10.5)
[2019-05-07 03:59] LABS: ANION GAP 9 (5-19); BLOOD UREA NITROGEN 52 mg/dL (7-20); CALCIUM 8.6 mg/dL (8.4-10.2); CARBON DIOXIDE 29 mmol/L (22-30); CHLORIDE 100 mmol/L (98-107); GLUCOSE 136 mg/dL (75-110); POTASSIUM 3.8 mmol/L (3.6-5.0)
[2019-05-07] MEDS: INSULIN REG, HUMAN 100 UNIT/ML 3 ML VIAL (PYX) SUBCUT SCH ×4 (05:58→17:19)
[2019-05-07] MEDS: HEPARIN SOD (PORCINE) 5,000 UNIT/ML 1 ML VIAL SUBCUT SCH ×3 (05:59→21:35)
[2019-05-07] MEDS: FAMOTIDINE 20 MG TABLET PO SCH ×2 (09:10→21:35)
[2019-05-07] MEDS: AMLODIPINE BESYLATE 10 MG TABLET NG SCH (09:10)
[2019-05-07] MEDS: ASPIRIN 81 MG TABLET, CHEWABLE NG SCH (09:10)
[2019-05-07] MEDS: METOPROLOL TARTRATE 25 MG TABLET NG SCH ×2 (09:10→21:35)
[2019-05-07] MEDS: VALSARTAN 160 MG TABLET NG SCH (09:10)
[2019-05-07] MEDS: GLIPIZIDE 5 MG TABLET NG SCH ×2 (09:11→17:18)
[2019-05-07] MEDS: TORSEMIDE 20 MG TABLET NG SCH (09:11)
--- NOTE | 2019-05-07 11:18 | PDOC CRITICAL CARE PROG REPORT ---
General Date:: 05/07/19 Hospital Day:: 4 Resuscitation Status: Full Code Events in the past 12 to 24 Hours:: Sensorium getting clearer. Kidneys slowly improving. Review of systems relevant to events:: Neurological, renal. Reason for ICU Addmission:: Respiratory Failure and intubation, now resolved - Medications: Medications reviewed and adjusted accordingly: Yes Vasopressors:: None Sedation:: None Physical Exam Vital Signs: Temp Pulse Resp BP Pulse Ox 98.1 F 72 20 142/86 H 96 05/06/19 21:42 05/07/19 10:00 05/07/19 10:00 05/07/19 10:00 05/07/19 10:00 Intake & Output 05/06/19 05/07/19 05/08/19 06:59 06:59 06:59 Output Total 2200 800 100 Balance -2200 -800 -100 Weight 120.3 kg 117.4 kg Weight/Height Weight 117.4 kg Height 6 ft 4 in General appearance: PRESENT: no acute distress, cooperative, well-developed, well-nourished Head exam: PRESENT: atraumatic, normocephalic Eye exam: PRESENT: conjunctiva pink, EOMI, PERRLA. ABSENT: scleral icterus Ear exam: PRESENT: normal external ear exam Mouth exam: PRESENT: moist, tongue midline Respiratory exam: PRESENT: clear to auscultation liseth, decreased breath sounds. ABSENT: rales, rhonchi, wheezes Cardiovascular exam: PRESENT: RRR. ABSENT: diastolic murmur, rubs, systolic murmur GI/Abdominal exam: PRESENT: normal bowel sounds, soft. ABSENT: distended, guarding, mass, organolmegaly, rebound, tenderness Rectal exam: PRESENT: deferred Extremities exam: PRESENT: full ROM. ABSENT: calf tenderness, clubbing, pedal edema Musculoskeletal exam: PRESENT: normal inspection Neurological exam: PRESENT: alert, awake, oriented to person, oriented to place, oriented to time, oriented to situation, CN II-XII grossly intact. ABSENT: motor sensory deficit Psychiatric exam: PRESENT: appropriate affect, normal mood. ABSENT: homicidal ideation, suicidal ideation Skin exam: PRESENT: dry, intact, warm. ABSENT: cyanosis, rash Laboratory/Radiographs Laboratory Results: 05/07/19 03:32 05/07/19 03:32 05/07/19 05/07/19 03:32 03:32 WBC 9.1 RBC 3.57 L Hgb 10.9 L Hct 32.4 L MCV 91 MCH 30.7 MCHC 33.7 RDW 15.4 H Plt Count 340 Sodium 137.5 Potassium 3.8 Chloride 100 Carbon Dioxide 29 Anion Gap 9 BUN 52 H Creatinine 3.42 H Est GFR ( Amer) 22 L Glucose 136 H Calcium 8.6 05/03/19 08:30 Tracheal Aspirate Gram Stain - Final 05/03/19 08:30 Tracheal Aspirate Sputum Culture - Final REDUCED NORMAL FABRICIO 05/03/19 01:03 NT-Pro-B Natriuret Pep 6360 H Impressions: Chest X-Ray 05/04/19 05:00 IMPRESSION: Markedly improved aeration bilaterally, likely resolving edema. Retraction of the endotracheal tube with tip overlying the proximal thoracic trachea, 10.5 cm above the payton. Enteric tube side port overlies distal esophagus. Consider repositioning. All labs, radiographs, diagnostic studies and EKGs were personally reviewed: Yes In addition, reports of radiographic and diagnostic studies were read: Yes Assessment and Plan - Diagnosis (1) CHF (congestive heart failure) Qualifiers: Heart failure type: combined systolic and diastolic Heart failure chronicity: chronic Qualified Code(s): I50.42 - Chronic combined systolic (congestive) and diastolic (congestive) heart failure Is this a current diagnosis for this admission?: Yes Plan: Resolved (2) ETOH abuse Is this a current diagnosis for this admission?: Yes Plan: No evidence of withdrawal symptoms. No drinking X several days. (3) Chronic kidney disease, stage III (moderate) Is this a current diagnosis for this admission?: Yes Plan: Cr down to 3.4. Baseline 3.0 Nearly back to abnormal baseline. Cr was under 2.0 in Nov 2018. 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 (5) Physical deconditioning Is this a current diagnosis for this admission?: Yes Plan: Up and walking with a walker yesterday. When steadier on feet, consider discharge home to family. Plan Summary: Hopefully get home soon. Critical Time Critical Time (minutes): 30 Level of Care: MEDICAL Anticipated discharge: Home Within: within 48 hours -: 1. The care of a critical patient is a dynamic process. This note is a software support representative synopsis but static in nature. The timeframe for treatments given in order is not necessarily the actual time these treatments may have been done. 2. This patient requires critical care secondary to ongoing requirements for therapy not offered or safe outside the critical care environment. Transfer to a lower level of care will result in altered life or limb morbidity and mortality. 3. Multidisciplinary rounds completed. 4. ABCDE bundle addressed.
--- NOTE | 2019-05-07 14:07 | PDOC PROGRESS REPORT ---
Subjective Progress Note for:: 05/07/19 Subjective:: Patient continues to improve clinically. I see him sitting down in a chair while doing his neb treatments. He denies any complaints. His urine output was around 800 mL for the past 24 hours without any Diaz catheter. His blood pressure seems to be acceptable. He has been downgraded to being a floor patient although he still in the ICU. Reason For Visit: RESPIRATORY FAILURE Physical Exam Vital Signs: Temp Pulse Resp BP Pulse Ox 98.1 F 72 20 142/86 H 96 05/06/19 21:42 05/07/19 10:00 05/07/19 10:00 05/07/19 10:00 05/07/19 10:00 Intake & Output 05/06/19 05/07/19 05/08/19 06:59 06:59 06:59 Output Total 2200 800 100 Balance -2200 -800 -100 Weight 120.3 kg 117.4 kg Exam: General appearance: PRESENT: no acute distress, cooperative, well-developed, well-nourished Head exam: PRESENT: atraumatic, normocephalic Eye exam: PRESENT: conjunctiva pink, PERRLA. ABSENT: scleral icterus Neck exam: ABSENT: JVD Respiratory exam: PRESENT: Normal breath sounds. ABSENT: crackles, rales, rhonchi, unlabored, wheezes Cardiovascular exam: PRESENT: Regular rate rhythm -+S1, +S2. ABSENT: diastolic murmur, systolic murmur GI/Abdominal exam: PRESENT: normal bowel sounds, soft. ABSENT: guarding, mass, tenderness Extremities exam: Much improved grade 1 bilateral lower extremity pitting edema Neurological exam: PRESENT: alert, awake, oriented to person, place and time. Skin exam: PRESENT: dry, warm, Results Laboratory Results: 05/07/19 03:32 05/07/19 03:32 05/07/19 05/07/19 03:32 03:32 WBC 9.1 RBC 3.57 L Hgb 10.9 L Hct 32.4 L MCV 91 MCH 30.7 MCHC 33.7 RDW 15.4 H Plt Count 340 Sodium 137.5 Potassium 3.8 Chloride 100 Carbon Dioxide 29 Anion Gap 9 BUN 52 H Creatinine 3.42 H Est GFR ( Amer) 22 L Glucose 136 H Calcium 8.6 05/02/19 11:37 Blood Blood Culture - Final NO GROWTH IN 5 DAYS 05/03/19 08:30 Tracheal Aspirate Gram Stain - Final 05/03/19 08:30 Tracheal Aspirate Sputum Culture - Final REDUCED NORMAL FABRICIO 05/03/19 01:03 NT-Pro-B Natriuret Pep 6360 H Impressions: Chest X-Ray 05/04/19 05:00 IMPRESSION: Markedly improved aeration bilaterally, likely resolving edema. Retraction of the endotracheal tube with tip overlying the proximal thoracic trachea, 10.5 cm above the payton. Enteric tube side port overlies distal esophagus. Consider repositioning. Assessment & Plan - Diagnosis (1) Acute kidney injury superimposed on chronic kidney disease Is this a current diagnosis for this admission?: Yes Plan: Patient has improved and excellent urine output. Kidney function continues to improve and almost at baseline. Patient does not require any acute renal replacement therapy at this time. Continue to monitor kidney function and avoid nephrotoxic medications. (2) Chronic kidney disease, stage IV (severe) Is this a current diagnosis for this admission?: Yes Plan: This is associated with nephrotic range proteinuria most likely secondary to diabetic nephropathy. Baseline creatinine is around 3. (3) Anemia Is this a current diagnosis for this admission?: Yes Plan: Stable. (4) Bacteremia due to group B Streptococcus Is this a current diagnosis for this admission?: Yes Plan: Patient was on IV cefepime and vancomycin which is currently discontinued. Defer to orchestrator. (5) Hyponatremia Is this a current diagnosis for this admission?: Yes Plan: Resolved. (6) Anasarca Is this a current diagnosis for this admission?: Yes Plan: Significantly improved. Continue torsemide. (7) Hyperphosphatemia Is this a current diagnosis for this admission?: Yes Plan: Will recheck phosphorus level as the patient's kidney function continues to improve. (8) CHF (congestive heart failure) Qualifiers: Heart failure type: combined systolic and diastolic Heart failure chronicity: chronic Qualified Code(s): I50.42 - Chronic combined systolic (congestive) and diastolic (congestive) heart failure Is this a current diagnosis for this admission?: Yes Plan: On torsemide. (9) Gastroenteritis Is this a current diagnosis for this admission?: Yes Plan: Resolving. (10) Hypertension Qualifiers: Hypertension type: essential hypertension Qualified Code(s): I10 - Essential (primary) hypertension Is this a current diagnosis for this admission?: Yes Plan: Acceptable control. (11) Type 2 diabetes mellitus Qualifiers: Diabetes mellitus ferry terminal agent insulin use: without ferry terminal agent use Diabetes mellitus complication status: with kidney complications Diabetes mellitus complication detail: with chronic kidney disease Chronic kidney disease stage: stage 3 (moderate) Qualified Code(s): E11.22 - Type 2 diabetes mellitus with diabetic chronic kidney disease; N18.3 - Chronic kidney disease, stage 3 (moderate) Is this a current diagnosis for this admission?: Yes - Notes Notes: I expect the patient's kidney function to either continues to improve or stabilize at this point. I will sign off at this point. Please do not hesitate to call us back if nephrology service can be of any further help. - Time Time with patient: 15-25 minutes
--- NOTE | 2019-05-07 15:44 | Progress Note ---
Provider Note Provider Note: CARDIOLOGY PROGRESS NOTE by Dr. Deonna Iniguez on 05/07/2019. Subjective: The Patient Denies Any Chest Pain or Discomfort. There Is No Shortness of Breath or PND Orthopnea. There Is No Palpitations or Arrhythmia Seen on the Monitor.. The Patient's Renal Function Is Improving. There Is No TIA CVA Symptoms. PHYSICAL EXAMINATION:: The Patient Is Moderately Obese in No Acute Distress. Selected Entries 05/07/19 18:03 Temperature 97.6 F Temperature Oral Source Pulse Rate 95 Respiratory 18 Rate Blood Pressure 155/84 H Blood Pressure 107 Mean BP Location Left Arm BP Position Sitting O2 Sat by Pulse 100 Oximetry Oxygen Delivery Room Air Method HEAD: Is atraumatic normocephalic. EYES: Pupils are equal round regular reactive to light. ENT is negative. NECK: Is supple there is mild JVD present. Carotids are equal there is no bruits. There is no lymphadenopathy. There is no goiter. There is no accessory muscle respiration use. LUNGS: There is a few bibasilar fine rales. There is scattered rhonchi. HEART: S1-S2 is heard. There is no S3 gallop. There is no S4 gallop. There is murmur of mitral regurgitation and tricuspid regurgitation present. There is no rub. ABDOMEN: Soft mildly obese. Nontender there is no paraspinal megaly. Bowel sounds are well heard. Extremities femorals are diminished. Leg pulses are diminished there is chronic lymphedema with also mild pitting edema bilaterally. There is chronic venous stasis dermatitis changes. Leg pulses are difficult to palpate. There is no DVT or cellulitis. There is no cyanosis or clubbing. PORTUGUESE TUTOR: The patient drowsy but moves all 4 extremities. PSYCHIATRIC: In view of the dorian uriarte's drowsiness psychiatric exam not performed, There is no accurate intake and output on this patient. Labs- All tests 24 hr 05/06/19 05/07/19 05/07/19 23:57 03:32 03:32 WBC 9.1 RBC 3.57 L Hgb 10.9 L Hct 32.4 L MCV 91 MCH 30.7 MCHC 33.7 RDW 15.4 H Plt Count 340 Sodium 137.5 Potassium 3.8 Chloride 100 Carbon Dioxide 29 Anion Gap 9 BUN 52 H Creatinine 3.42 H Est GFR ( Amer) 22 L Est GFR (MDRD) Non-Af 18 L Glucose 136 H POC Glucose 211 H Calcium 8.6 05/07/19 05/07/19 05:56 17:07 WBC RBC Hgb Hct MCV MCH MCHC RDW Plt Count Sodium Potassium Chloride Carbon Dioxide Anion Gap BUN Creatinine Est GFR ( Amer) Est GFR (MDRD) Non-Af Glucose POC Glucose 109 158 H Calcium Chest X-Ray 05/02/19 00:00 IMPRESSION: Cardiomegaly with extensive bilateral airspace opacities. Endotracheal and enteric tubes in place, as above copyright 2011 [employer]- All Rights Reserved Chest X-Ray 05/02/19 10:19 IMPRESSION: Bibasilar pneumonitis. Chest X-Ray 05/04/19 05:00 IMPRESSION: Markedly improved aeration bilaterally, likely resolving edema. Retraction of the endotracheal tube with tip overlying the proximal thoracic trachea, 10.5 cm above the payton. Enteric tube side port overlies distal esophagus. Consider repositioning. IMPRESSION RECOMMENDATION: 1. Acute respiratory failure. Patient required intubation. Now patient extubated. This is secondary to acute volume overload systolic heart failure and biventricular acute on chronic systolic heart failure and acute on chronic kidney disease significant pulmonary hypertension. 2. Acute on chronic biventricular systolic heart failure: Continue diuresis. Once renal function stabilizes we will start the patient on afterload reduction and Toprol-XL. 3. Acute on chronic renal failure: Nephrology on board. 4. Dilated cardiomyopathy with moderately reduced LV ejection fraction 5. Moderate to severe pulmonary hypertension: 6. Hypertension: Continue antihypertensives 7. Diabetes mellitus: Continue antidiabetic regimen and Accu-Cheks as per protocol 8. History of EtOH abuse: No signs of withdrawal Medications reviewed. Medical regimen and management plan discussed with risk management internship and unpaid intern. Medical decision making is a moderate complexity. 40 minutes spent on this patient more than 50% of time spent in direct patient care. Will follow.
--- NOTE | 2019-05-07 18:42 | Progress Note ---
Provider Note Provider Note: The patient is a 58 year old male with a history of chronic kidney disease stage III-IV, [id number] diabetes mellitus, hypertension, and congestive heart failure who was admitted for, likely, aspiration pneumonia and required ICU admission with intubation. The patient has been extubated to supplemental oxygen via NC and is downgraded to the medical floor. Overnight events, vital signs, laboratory results, imaging reports, H&P, recent progress notes, and orders are reviewed. Agree with the plan of care as established by the previous provider.
[2019-05-07] MEDS: ATORVASTATIN CALCIUM 40 MG TABLET NG SCH (21:35)
[2019-05-08] MEDS: IPRATROPIUM/ALBUTEROL 0.5-2.5 MG/3 ML AMPUL NEB SCH ×4 (00:25→12:36)
[2019-05-08] MEDS: INSULIN REG, HUMAN 100 UNIT/ML 3 ML VIAL (PYX) SUBCUT SCH ×3 (00:48→12:17)
[2019-05-08 04:47] LABS: ANION GAP 9 (5-19); BLOOD UREA NITROGEN 51 mg/dL (7-20); CALCIUM 8.8 mg/dL (8.4-10.2); CARBON DIOXIDE 28 mmol/L (22-30); CHLORIDE 100 mmol/L (98-107); GLUCOSE 110 mg/dL (75-110); POTASSIUM 3.7 mmol/L (3.6-5.0)
[2019-05-08] MEDS: HEPARIN SOD (PORCINE) 5,000 UNIT/ML 1 ML VIAL SUBCUT SCH (05:17)
[2019-05-08] MEDS: AMLODIPINE BESYLATE 10 MG TABLET NG SCH (09:23)
[2019-05-08] MEDS: VALSARTAN 160 MG TABLET NG SCH (09:23)
[2019-05-08] MEDS: METOPROLOL TARTRATE 25 MG TABLET NG SCH (09:23)
[2019-05-08] MEDS: ASPIRIN 81 MG TABLET, CHEWABLE NG SCH (09:24)
[2019-05-08] MEDS: GLIPIZIDE 5 MG TABLET NG SCH (09:29)
[2019-05-08] MEDS: FAMOTIDINE 20 MG TABLET PO SCH (09:29)
[2019-05-08] MEDS: TORSEMIDE 20 MG TABLET NG SCH (12:15)
[2019-05-08 14:50] VITALS: BP 166/78
--- NOTE | 2019-05-08 16:41 | PDOC DISCHARGE SUMMARY ---
Impression - Admit/DC Date/PCP Admission Date/Primary Care Provider: 05/02/19 23:58 PEGGY TORRES MD Discharge Date: 05/08/19 - Discharge Diagnosis (1) Acute pulmonary edema with congestive heart failure Is this a current diagnosis for this admission?: Yes (2) CHF (congestive heart failure) Is this a current diagnosis for this admission?: Yes (3) Chronic kidney disease, stage III (moderate) Is this a current diagnosis for this admission?: Yes (4) ETOH abuse Is this a current diagnosis for this admission?: Yes (5) Gastroenteritis Is this a current diagnosis for this admission?: Yes (6) Hypertension Is this a current diagnosis for this admission?: Yes (7) Physical deconditioning Is this a current diagnosis for this admission?: Yes (8) Type 2 diabetes mellitus Is this a current diagnosis for this admission?: Yes - Additional Information Resuscitation Status: Full Code Discharge Diet: Cardiac, Diabetic Discharge Activity: Activity As Tolerated, Balance Activity w/Rest, Weigh Daily Referrals: JADIEL SHARPE MD [COMMUNITY BASED STAFF] - Home Medications: Aspirin [Ecotrin 81 mg EC Tablet] 81 mg PO DAILY 12/12/18 Atorvastatin Calcium [Lipitor 40 mg Tablet] 40 mg PO QHS 12/12/18 Glipizide [Glipizide Xl] 10 mg PO [id number] 12/12/18 Amlodipine Besylate [Norvasc 10 mg Tablet] 10 mg PO DAILY #30 tablet 12/15/18 Ergocalciferol (Vitamin D2) [Vitamin D2] 50 mcg PO MO@1000 05/02/19 Metoprolol Succinate [Toprol Xl 25 mg Tab.sr] 25 mg PO DAILY 05/02/19 Torsemide [Demadex 20 mg Tablet] 20 mg PO DAILY 05/02/19 Valsartan 320 mg PO DAILY 05/02/19 Acetaminophen [Tylenol 325 mg Tablet] 650 mg NG Q4HP PRN tablet 05/08/19 History of Present Illiness History of Present Illness: Per H&P per Dr. Davis: JARED HORVATH JR is a 58 year old male with a history of chronic kidney disease stage III-IV, [id number] diabetes mellitus, hypertension, and congestive heart failure, last echocardiogram approximately 1 year ago, EF 40 to 45%, mildly reduced right ventricular systolic function, pulmonary hypertension with RVSP of 50 to 55 mmHg. He presents to the ER today after experiencing nausea and vomiting which started early this morning, around 0130 hours. He said it has mostly been saliva and "stomach juice." He said he has had several episodes of this, he thinks 8 or 9 times total. He is starting to have some loose stool as well. He has not taken his medications today. He said that prior to this he was in his usual state of health. He said he has had some family over at his house the last few days and he went out to the grocery store but he does not know that he is been around anyone he knows to be sick. He said he felt like he had a little bit of shortness of breath last night but none today. He did have a fever when he first came into the ER. He is gotten about 3 L of fluid at this point. He has not had any cough or chest congestion. He has not had any recent travel. He said right now he actually feels a lot better. He got some antiemetics in the ER and he says those have really helped him. He has a lot of swelling around his ankles and some bibasilar crackles on examination. He had a chest x-ray which was read as a bibasilar pneumonitis but the indication for examination included cough and congestion, both of which the patient denied to me. Hospital Course Hospital Course: The patient was initially admitted to the medical floor on continuous cardiac telemetry. He was provided IV fluid resuscitation and antiemetics for treatment of dehydration related to gastritis. Unfortunately, the patient developed worsening lower extremity edema and acute pulmonary edema related to underlying CHF. This resulted in a PUBLIC [employer]ATIONS STUDIES DIRECTOR being called due to desaturations despite escalating oxygen support. He was subsequently transferred to the ICU and intubated on 05/03/2019. Chest x-ray demonstrated bibasilar pneumonitis; rising the concern of possible aspiration event as the patient had presented with nausea and vomiting due to gastritis. Fortunately, he rapidly improved and was extubated the following day on 05/04/2019. He is now ambulatory on room air. Nephrology and cardiology services were consulted. Was consulted for acute kidney injury superimposed upon his CKD 3; likely secondary to. Fortunately, he did not require renal replacement therapy and his renal function has returned to his baseline creatinine of ~3. Cardiology was consulted due to the acute CHF exacerbation. EKG demonstrated LVEF 40 to 45% with mild concentric left ventricular hypertrophy and mild diastolic dysfunction. There was moderate global hypokinesis of the left ventricle. Mild dilatation of the right and left atrium's. And moderate moderate to severe pulmonary hypertension with an RVSP of 55-60. Medication adjustments per cardiology service were made; patient is discharged on amlodipine, valsartan, Toprol-XL, torsemide, atorvastatin aspirin therapy. PT/OT/ST consultations were obtained with recommendations for continued rehabilitation services through home health. Patient is discharged to home in the care of family members with home health services. He is advised to follow-up with his primary care provider within 1 week. Take medications as prescribed. Return to the emergency department as needed for concerning symptoms. Physical Exam Vital Signs: Temp Pulse Resp BP Pulse Ox 97.5 F 86 14 166/78 H 95 05/08/19 14:47 05/08/19 14:47 05/08/19 14:47 05/08/19 14:47 05/08/19 14:47 Intake & Output 05/07/19 05/08/19 05/09/19 06:59 06:59 06:59 Intake Total 120 Output Total 800 100 Balance -800 -100 120 Weight 117.4 kg 118.6 kg General appearance: PRESENT: no acute distress, cooperative, well-developed, well-nourished, other - Overweight Head exam: PRESENT: atraumatic, normocephalic Eye exam: PRESENT: conjunctiva pink, EOMI, PERRLA. ABSENT: scleral icterus Ear exam: PRESENT: normal external ear exam Mouth exam: PRESENT: moist, tongue midline Neck exam: ABSENT: carotid bruit, JVD, lymphadenopathy, thyromegaly Respiratory exam: PRESENT: clear to auscultation liseth, symmetrical, unlabored. ABSENT: rales, rhonchi, wheezes Cardiovascular exam: PRESENT: RRR, +S1, +S2, systolic murmur. ABSENT: diastolic murmur, rubs Pulses: PRESENT: normal dorsalis pedis pul Vascular exam: PRESENT: normal capillary refill GI/Abdominal exam: PRESENT: normal bowel sounds, soft. ABSENT: distended, guarding, mass, organolmegaly, rebound, tenderness Rectal exam: PRESENT: deferred Extremities exam: PRESENT: full ROM, +2 edema - BLE. ABSENT: calf tenderness, clubbing, pedal edema Musculoskeletal exam: PRESENT: ambulatory Neurological exam: PRESENT: alert, awake, oriented to person, oriented to place, oriented to time, oriented to situation, CN II-XII grossly intact, other - Stutter. ABSENT: motor sensory deficit Psychiatric exam: PRESENT: appropriate affect, normal mood. ABSENT: homicidal ideation, suicidal ideation Skin exam: PRESENT: dry, intact, warm, other - Chronic venous stasis dermatitis to bilateral lower extremities; left greater than right. ABSENT: cyanosis, rash Results Laboratory Results: WBC 9.1 10^3/uL (4.0-10.5) 05/07/19 03:32 RBC 3.57 10^6/uL (4.35-5.55) L 05/07/19 03:32 Hgb 10.9 g/dL (13.5-17.0) L 05/07/19 03:32 Hct 32.4 % (37.9-51.0) L 05/07/19 03:32 MCV 91 fl (80-97) 05/07/19 03:32 MCH 30.7 pg (27.0-33.4) 05/07/19 03:32 MCHC 33.7 g/dL (32.0-36.0) 05/07/19 03:32 RDW 15.4 % (11.5-14.0) H 05/07/19 03:32 Plt Count 340 10^3/uL (150-450) 05/07/19 03:32 Lymph % (Auto) 5.1 % (13-45) L 05/05/19 03:31 Petroleum % (Auto) 4.6 % (3-13) 05/05/19 03:31 Eos % (Auto) 0.4 % (0-6) 05/05/19 03:31 Baso % (Auto) 0.3 % (0-2) 05/05/19 03:31 Absolute Neuts (auto) 14.1 10^3/uL (1.7-8.2) H 05/05/19 03:31 Absolute Lymphs (auto) 0.8 10^3/uL (0.5-4.7) 05/05/19 03:31 Absolute Monos (auto) 0.7 10^3/uL (0.1-1.4) 05/05/19 03:31 Absolute Eos (auto) 0.1 10^3/uL (0.0-0.6) 05/05/19 03:31 Absolute Basos (auto) 0.1 10^3/uL (0.0-0.2) 05/05/19 03:31 Total Counted 100 05/04/19 04:11 Seg Neutrophils % 89.6 % (42-78) H 05/05/19 03:31 Seg Neuts % (Manual) 80 % (42-78) H 05/04/19 04:11 Band Neutrophils % 6 % (3-5) H 05/04/19 04:11 Lymphocytes % (Manual) 7 % (13-45) L 05/04/19 04:11 Monocytes % (Manual) 7 % (3-13) 05/04/19 04:11 Eosinophils % (Manual) 0 % (0-6) 05/04/19 04:11 Basophils % (Manual) 0 % (0-2) 05/04/19 04:11 Abs Neuts (Manual) 13.0 10^3/uL (1.7-8.2) H 05/04/19 04:11 Abs Lymphs (Manual) 1.1 10^3/uL (0.5-4.7) 05/04/19 04:11 Abs Monocytes (Manual) 1.1 10^3/uL (0.1-1.4) 05/04/19 04:11 Absolute Eos (Manual) 0.0 10^3/uL (0.0-0.6) 05/04/19 04:11 Abs Basophils (Manual) 0.0 10^3/uL (0.0-0.2) 05/04/19 04:11 Toxic Granulation 1+ 05/04/19 04:11 Toxic Vacuolation PRESENT 05/04/19 04:11 Clumped Platelets PRESENT 05/02/19 10:50 Platelet Comment ADEQUATE 05/04/19 04:11 Polychromasia SLIGHT 05/04/19 04:11 Anisocytosis SLIGHT 05/04/19 04:11 Schistocytes SLIGHT 05/04/19 04:11 PT 13.9 SEC (11.4-15.4) 05/03/19 01:03 INR 1.07 05/03/19 01:03 APTT 33.6 SEC (23.5-35.8) 05/03/19 01:03 Carbonic Acid 1.20 mmol/L (1.05-1.35) 05/04/19 04:25 HCO3/H2CO3 Ratio 18:1 05/04/19 04:25 ABG pH 7.37 (7.35-7.45) 05/04/19 04:25 ABG pCO2 39.8 mmHg (35-45) 05/04/19 04:25 ABG pO2 54.5 mmHg (80-100) L 05/04/19 04:25 ABG HCO3 22.6 mmol/L (20-24) 05/04/19 04:25 ABG Total CO2 23.9 mmol/L (23-27) 05/04/19 04:25 ABG O2 Saturation 87.7 % (94-98) L 05/04/19 04:25 ABG Base Excess -2.4 mmol/L 05/04/19 04:25 VBG pH 7.37 (7.30-7.42) 05/02/19 10:50 VBG pCO2 39.8 mmHg (35-63) 05/02/19 10:50 VBG HCO3 22.4 mmol/L (20-32) 05/02/19 10:50 VBG Base Excess -2.5 mmol/L 05/02/19 10:50 FiO2 21% 05/04/19 04:25 Sodium 136.7 mmol/L (137-145) L 05/08/19 03:37 Potassium 3.7 mmol/L (3.6-5.0) 05/08/19 03:37 Chloride 100 mmol/L (98-107) 05/08/19 03:37 Carbon Dioxide 28 mmol/L (22-30) 05/08/19 03:37 Anion Gap 9 (5-19) 05/08/19 03:37 BUN 51 mg/dL (7-20) H 05/08/19 03:37 Creatinine 3.55 mg/dL (0.52-1.25) H 05/08/19 03:37 Est GFR ( Amer) 21 (>60) L 05/08/19 03:37 Est GFR (MDRD) Non-Af 18 (>60) L 05/08/19 03:37 Glucose 110 mg/dL (75-110) 05/08/19 03:37 POC Glucose 143 mg/dL (70-110) H 05/08/19 11:31 Lactic Acid 2.7 mmol/L (0.7-2.1) H 05/02/19 16:25 Calcium 8.8 mg/dL (8.4-10.2) 05/08/19 03:37 Phosphorus 6.0 mg/dL (2.5-4.5) H 05/08/19 03:37 Magnesium 2.0 mg/dL (1.6-2.3) 05/04/19 04:11 Total Bilirubin 1.1 mg/dL (0.2-1.3) 05/03/19 01:03 Direct Bilirubin 0.5 mg/dL (0.0-0.4) H 05/03/19 01:03 Neonat Total Bilirubin Not Reportable 05/03/19 01:03 Neonat Direct Bilirubin Not Reportable 05/03/19 01:03 Neonat Indirect Bili Not Reportable 05/03/19 01:03 AST 32 U/L (17-59) 05/03/19 01:03 ALT 16 U/L (<50) 05/03/19 01:03 Alkaline Phosphatase 82 U/L (38-126) 05/03/19 01:03 NT-Pro-B Natriuret Pep 6360 pg/mL (<125) H 05/03/19 01:03 Total Protein 6.2 g/dL (6.3-8.2) L 05/03/19 01:03 Albumin 2.6 g/dL (3.5-5.0) L 05/03/19 01:03 Urine Color YELLOW 05/02/19 12:48 Urine Appearance SLIGHTLY-CLOUDY 05/02/19 12:48 Urine pH 6.0 (5.0-9.0) 05/02/19 12:48 Ur Specific [place] 1.014 05/02/19 12:48 Urine Protein >=500 mg/dL (NEGATIVE) H 05/02/19 12:48 Urine Glucose (UA) 150 mg/dL (NEGATIVE) H 05/02/19 12:48 Urine Ketones NEGATIVE mg/dL (NEGATIVE) 05/02/19 12:48 Urine Blood SMALL (NEGATIVE) H 05/02/19 12:48 Urine Nitrite NEGATIVE (NEGATIVE) 05/02/19 12:48 Urine Bilirubin NEGATIVE (NEGATIVE) 05/02/19 12:48 Urine Urobilinogen NEGATIVE mg/dL (<2.0) 05/02/19 12:48 Ur Leukocyte Esterase NEGATIVE (NEGATIVE) 05/02/19 12:48 Urine WBC (Auto) 4 /HPF 05/02/19 12:48 Urine RBC (Auto) 4 /HPF 05/02/19 12:48 Urine Bacteria (Auto) TRACE /HPF 05/02/19 12:48 Squamous Epi Cells Auto <1 /HPF 05/02/19 12:48 Urine Mucus (Auto) RARE /LPF 05/02/19 12:48 Urine Ascorbic Acid NEGATIVE (NEGATIVE) 05/02/19 12:48 Gastric Occult Blood POSITIVE (NEGATIVE) 05/03/19 08:30 Influenza A (Rapid) NEGATIVE (NEGATIVE) 05/02/19 12:12 Influenza B (Rapid) NEGATIVE (NEGATIVE) 05/02/19 12:12 05/03/19 01:03 NT-Pro-B Natriuret Pep 6360 H Impressions: Chest X-Ray 05/02/19 00:00 IMPRESSION: Cardiomegaly with extensive bilateral airspace opacities. Endotracheal and enteric tubes in place, as above copyright 2011 [id number]- All Rights Reserved Chest X-Ray 05/02/19 10:19 IMPRESSION: Bibasilar pneumonitis. Chest X-Ray 05/04/19 05:00 IMPRESSION: Markedly improved aeration bilaterally, likely resolving edema. Retraction of the endotracheal tube with tip overlying the proximal thoracic trachea, 10.5 cm above the payton. Enteric tube side port overlies distal esophagus. Consider repositioning. Plan Plan of Treatment: Patient is discharged to home with home health nursing, PT/OT/ST, aide, and clinical social work therapist services. He is advised to follow-up with his primary care provider within 1 week. Recommend he take his medications as prescribed. Continue to eat a cardiac diet. Weigh self daily and report any weight gain of greater than 2 pounds overnight to your provider. Return to the emergency department as needed for concerning symptoms. Time Spent: Greater than 30 Minutes Stroke Is this a Stroke Patient?: No Acute Heart Failure - Is this a Heart Failure Patient?: Yes Documentation of LVEF assessment?: Yes LVEF < 40%?: No- if no continue to question #3 3. Anticoagulant therapy for permanect/persistent/paraoxysmal Afib or Aflutter: N/A Follow-up Appointment scheduled within 7 days?: Yes
--- NOTE | 2019-05-08 17:47 | Progress Note ---
Provider Note Provider Note: CARDIOLOGY PROGRESS NOTE by Dr. Deonna Iniguez on 05/08/2019. OBJECTIVE: The patient denies any chest pain or discomfort. There is no shortness of breath. There is no PND orthopnea. His chronic leg edema is stable. There is no evidence of cellulitis. There is no arrhythmia seen on the monitor. The patient renal function is slightly improving. PHYSICAL EXAMINATION: The patient is moderately obese in no acute distress. Selected Entries 05/08/19 11:29 Temperature 97.5 F Temperature Oral Source Pulse Rate 83 Respiratory 18 Rate Blood Pressure 159/87 H Blood Pressure 111 Mean BP Location Left Arm BP Position Sitting O2 Sat by Pulse 98 Oximetry Oxygen Delivery Room Air Method HEAD: Is atraumatic normocephalic. EYES: Pupils are equal round regular reactive to light. ENT is negative. NECK: Is supple there is mild JVD present. Carotids are equal there is no bruits. There is no lymphadenopathy. There is no goiter. There is no accessory muscle respiration use. LUNGS: There is a few bibasilar fine rales. There is scattered rhonchi. HEART: S1-S2 is heard. There is no S3 gallop. There is no S4 gallop. There is murmur of mitral regurgitation and tricuspid regurgitation present. There is no rub. ABDOMEN: Soft mildly obese. Nontender there is no paraspinal megaly. Bowel sounds are well heard. Extremities femorals are diminished. Leg pulses are diminished there is chronic lymphedema with also mild pitting edema bilaterally. There is chronic venous stasis dermatitis changes. Leg pulses are difficult to palpate. There is no DVT or cellulitis. There is no cyanosis or clubbing. 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 PSYCHIATRIC: In view of the patient's drowsiness psychiatric exam not performed, There is no accurate intake and output on this patient. Labs- Entire Visit 05/02/19 05/02/19 05/02/19 10:50 10:50 10:50 WBC 14.9 H RBC 3.93 L Hgb 11.9 L Hct 36.0 L MCV 92 MCH 30.4 MCHC 33.2 RDW 15.6 H Plt Count 342 Lymph % (Auto) Not Reportable Pickett % (Auto) Not Reportable Eos % (Auto) Not Reportable Baso % (Auto) Not Reportable Absolute Neuts (auto) Not Reportable Absolute Lymphs (auto) Not Reportable Absolute Monos (auto) Not Reportable Absolute Eos (auto) Not Reportable Absolute Basos (auto) Not Reportable Total Counted 100 Seg Neutrophils % Not Reportable Seg Neuts % (Manual) 93 H Band Neutrophils % 1 L Lymphocytes % (Manual) 3 L Monocytes % (Manual) 2 L Eosinophils % (Manual) 0 Basophils % (Manual) 1 Abs Neuts (Manual) 14.0 H Abs Lymphs (Manual) 0.4 L Abs Monocytes (Manual) 0.3 Absolute Eos (Manual) 0.0 Abs Basophils (Manual) 0.1 Toxic Granulation 1+ Toxic Vacuolation Clumped Platelets PRESENT Platelet Comment ADEQUATE Polychromasia Anisocytosis SLIGHT Schistocytes PT 12.7 INR 0.95 APTT Carbonic Acid HCO3/H2CO3 Ratio ABG pH ABG pCO2 ABG pO2 ABG HCO3 ABG Total CO2 ABG O2 Saturation ABG Base Excess VBG pH VBG pCO2 VBG HCO3 VBG Base Excess FiO2 Sodium 134.3 L Potassium 4.3 Chloride 101 Carbon Dioxide 22 Anion Gap 11 BUN 34 H Creatinine 3.47 H Est GFR ( Amer) 22 L Est GFR (MDRD) Non-Af 18 L Glucose 107 POC Glucose Lactic Acid Calcium 8.7 Phosphorus Magnesium Total Bilirubin 0.7 Direct Bilirubin 0.0 Neonat Total Bilirubin Not Reportable Neonat Direct Bilirubin Not Reportable Neonat Indirect Bili Not Reportable AST 27 ALT 16 Alkaline Phosphatase 99 NT-Pro-B Natriuret Pep Total Protein 6.8 Albumin 3.2 L Urine Color Urine Appearance Urine pH Ur Specific Gary Urine Protein Urine Glucose (UA) Urine Ketones Urine Blood Urine Nitrite Urine Bilirubin Urine Urobilinogen Ur Leukocyte Esterase Urine WBC (Auto) Urine RBC (Auto) Urine Bacteria (Auto) Squamous Epi Cells Auto Urine Mucus (Auto) Urine Ascorbic Acid Gastric Occult Blood Influenza A (Rapid) Influenza B (Rapid) 05/02/19 05/02/19 05/02/19 10:50 10:50 10:53 WBC RBC Hgb Hct MCV MCH MCHC RDW Plt Count Lymph % (Auto) Pickett % (Auto) Eos % (Auto) Baso % (Auto) Absolute Neuts (auto) Absolute Lymphs (auto) Absolute Monos (auto) Absolute Eos (auto) Absolute Basos (auto) Total Counted Seg Neutrophils % Seg Neuts % (Manual) Band Neutrophils % Lymphocytes % (Manual) Monocytes % (Manual) Eosinophils % (Manual) Basophils % (Manual) Abs Neuts (Manual) Abs Lymphs (Manual) Abs Monocytes (Manual) Absolute Eos (Manual) Abs Basophils (Manual) Toxic Granulation Toxic Vacuolation Clumped Platelets Platelet Comment Polychromasia Anisocytosis Schistocytes PT INR APTT Carbonic Acid HCO3/H2CO3 Ratio ABG pH ABG pCO2 ABG pO2 ABG HCO3 ABG Total CO2 ABG O2 Saturation ABG Base Excess VBG pH 7.37 VBG pCO2 39.8 VBG HCO3 22.4 VBG Base Excess -2.5 FiO2 Sodium Potassium Chloride Carbon Dioxide Anion Gap BUN Creatinine Est GFR ( Amer) Est GFR (MDRD) Non-Af Glucose POC Glucose 107 Lactic Acid 2.8 H Calcium Phosphorus Magnesium Total Bilirubin Direct Bilirubin Neonat Total Bilirubin Neonat Direct Bilirubin Neonat Indirect Bili AST ALT Alkaline Phosphatase NT-Pro-B Natriuret Pep Total Protein Albumin Urine Color Urine Appearance Urine pH Ur Specific Gary Urine Protein Urine Glucose (UA) Urine Ketones Urine Blood Urine Nitrite Urine Bilirubin Urine Urobilinogen Ur Leukocyte Esterase Urine WBC (Auto) Urine RBC (Auto) Urine Bacteria (Auto) Squamous Epi Cells Auto Urine Mucus (Auto) Urine Ascorbic Acid Gastric Occult Blood Influenza A (Rapid) Influenza B (Rapid) 05/02/19 05/02/19 05/02/19 12:12 12:48 13:30 WBC RBC Hgb Hct MCV MCH MCHC RDW Plt Count Lymph % (Auto) Pickett % (Auto) Eos % (Auto) Baso % (Auto) Absolute Neuts (auto) Absolute Lymphs (auto) Absolute Monos (auto) Absolute Eos (auto) Absolute Basos (auto) Total Counted Seg Neutrophils % Seg Neuts % (Manual) Band Neutrophils % Lymphocytes % (Manual) Monocytes % (Manual) Eosinophils % (Manual) Basophils % (Manual) Abs Neuts (Manual) Abs Lymphs (Manual) Abs Monocytes (Manual) Absolute Eos (Manual) Abs Basophils (Manual) Toxic Granulation Toxic Vacuolation Clumped Platelets Platelet Comment Polychromasia Anisocytosis Schistocytes PT INR APTT Carbonic Acid HCO3/H2CO3 Ratio ABG pH ABG pCO2 ABG pO2 ABG HCO3 ABG Total CO2 ABG O2 Saturation ABG Base Excess VBG pH VBG pCO2 VBG HCO3 VBG Base Excess FiO2 Sodium Potassium Chloride Carbon Dioxide Anion Gap BUN Creatinine Est GFR ( Amer) Est GFR (MDRD) Non-Af Glucose POC Glucose Lactic Acid 1.1 Calcium Phosphorus Magnesium Total Bilirubin Direct Bilirubin Neonat Total Bilirubin Neonat Direct Bilirubin Neonat Indirect Bili AST ALT Alkaline Phosphatase NT-Pro-B Natriuret Pep Total Protein Albumin Urine Color YELLOW Urine Appearance SLIGHTLY-CLOUDY Urine pH 6.0 Ur Specific Gary 1.014 Urine Protein >=500 H Urine Glucose (UA) 150 H Urine Ketones NEGATIVE Urine Blood SMALL H Urine Nitrite NEGATIVE Urine Bilirubin NEGATIVE Urine Urobilinogen NEGATIVE Ur Leukocyte Esterase NEGATIVE Urine WBC (Auto) 4 Urine RBC (Auto) 4 Urine Bacteria (Auto) TRACE Squamous Epi Cells Auto <1 Urine Mucus (Auto) RARE Urine Ascorbic Acid NEGATIVE Gastric Occult Blood Influenza A (Rapid) NEGATIVE Influenza B (Rapid) NEGATIVE 05/02/19 05/02/19 05/02/19 16:25 16:48 21:31 WBC RBC Hgb Hct MCV MCH MCHC RDW Plt Count Lymph % (Auto) Pickett % (Auto) Eos % (Auto) Baso % (Auto) Absolute Neuts (auto) Absolute Lymphs (auto) Absolute Monos (auto) Absolute Eos (auto) Absolute Basos (auto) Total Counted Seg Neutrophils % Seg Neuts % (Manual) Band Neutrophils % Lymphocytes % (Manual) Monocytes % (Manual) Eosinophils % (Manual) Basophils % (Manual) Abs Neuts (Manual) Abs Lymphs (Manual) Abs Monocytes (Manual) Absolute Eos (Manual) Abs Basophils (Manual) Toxic Granulation Toxic Vacuolation Clumped Platelets Platelet Comment Polychromasia Anisocytosis Schistocytes PT INR APTT Carbonic Acid HCO3/H2CO3 Ratio ABG pH ABG pCO2 ABG pO2 ABG HCO3 ABG Total CO2 ABG O2 Saturation ABG Base Excess VBG pH VBG pCO2 VBG HCO3 VBG Base Excess FiO2 Sodium Potassium Chloride Carbon Dioxide Anion Gap BUN Creatinine Est GFR ( Amer) Est GFR (MDRD) Non-Af Glucose POC Glucose 133 H 133 H Lactic Acid 2.7 H Calcium Phosphorus Magnesium Total Bilirubin Direct Bilirubin Neonat Total Bilirubin Neonat Direct Bilirubin Neonat Indirect Bili AST ALT Alkaline Phosphatase NT-Pro-B Natriuret Pep Total Protein Albumin Urine Color Urine Appearance Urine pH Ur Specific Gary Urine Protein Urine Glucose (UA) Urine Ketones Urine Blood Urine Nitrite Urine Bilirubin Urine Urobilinogen Ur Leukocyte Esterase Urine WBC (Auto) Urine RBC (Auto) Urine Bacteria (Auto) Squamous Epi Cells Auto Urine Mucus (Auto) Urine Ascorbic Acid Gastric Occult Blood Influenza A (Rapid) Influenza B (Rapid) 05/02/19 05/02/19 05/03/19 22:21 22:41 00:31 WBC RBC Hgb Hct MCV MCH MCHC RDW Plt Count Lymph % (Auto) Pickett % (Auto) Eos % (Auto) Baso % (Auto) Absolute Neuts (auto) Absolute Lymphs (auto) Absolute Monos (auto) Absolute Eos (auto) Absolute Basos (auto) Total Counted Seg Neutrophils % Seg Neuts % (Manual) Band Neutrophils % Lymphocytes % (Manual) Monocytes % (Manual) Eosinophils % (Manual) Basophils % (Manual) Abs Neuts (Manual) Abs Lymphs (Manual) Abs Monocytes (Manual) Absolute Eos (Manual) Abs Basophils (Manual) Toxic Granulation Toxic Vacuolation Clumped Platelets Platelet Comment Polychromasia Anisocytosis Schistocytes PT INR APTT Carbonic Acid 1.84 H HCO3/H2CO3 Ratio 11:1 ABG pH 7.16 L* ABG pCO2 61.2 H ABG pO2 49.2 L ABG HCO3 21.1 ABG Total CO2 23.0 ABG O2 Saturation 72.9 L ABG Base Excess -8.3 VBG pH VBG pCO2 VBG HCO3 VBG Base Excess FiO2 15L Sodium Potassium Chloride Carbon Dioxide Anion Gap BUN Creatinine Est GFR ( Amer) Est GFR (MDRD) Non-Af Glucose POC Glucose 139 H 208 H Lactic Acid Calcium Phosphorus Magnesium Total Bilirubin Direct Bilirubin Neonat Total Bilirubin Neonat Direct Bilirubin Neonat Indirect Bili AST ALT Alkaline Phosphatase NT-Pro-B Natriuret Pep Total Protein Albumin Urine Color Urine Appearance Urine pH Ur Specific Gary Urine Protein Urine Glucose (UA) Urine Ketones Urine Blood Urine Nitrite Urine Bilirubin Urine Urobilinogen Ur Leukocyte Esterase Urine WBC (Auto) Urine RBC (Auto) Urine Bacteria (Auto) Squamous Epi Cells Auto Urine Mucus (Auto) Urine Ascorbic Acid Gastric Occult Blood Influenza A (Rapid) Influenza B (Rapid) 05/03/19 05/03/19 05/03/19 01:03 01:03 01:03 WBC 6.4 RBC 3.59 L Hgb 11.3 L Hct 33.0 L MCV 92 MCH 31.5 MCHC 34.3 RDW 15.7 H Plt Count 300 Lymph % (Auto) [place]ett % (Auto) Eos % (Auto) Baso % (Auto) Absolute Neuts (auto) Absolute Lymphs (auto) Absolute Monos (auto) Absolute Eos (auto) Absolute Basos (auto) Total Counted Seg Neutrophils % Seg Neuts % (Manual) Band Neutrophils % Lymphocytes % (Manual) Monocytes % (Manual) Eosinophils % (Manual) Basophils % (Manual) Abs Neuts (Manual) Abs Lymphs (Manual) Abs Monocytes (Manual) Absolute Eos (Manual) Abs Basophils (Manual) Toxic Granulation Toxic Vacuolation Clumped Platelets Platelet Comment Polychromasia Anisocytosis Schistocytes PT 13.9 INR 1.07 APTT 33.6 Carbonic Acid HCO3/H2CO3 Ratio ABG pH ABG pCO2 ABG pO2 ABG HCO3 ABG Total CO2 ABG O2 Saturation ABG Base Excess VBG pH VBG pCO2 VBG HCO3 VBG Base Excess FiO2 Sodium 133.5 L Potassium 4.7 Chloride 103 Carbon Dioxide 19 L Anion Gap 12 BUN 38 H Creatinine 3.41 H Est GFR ( Amer) 22 L Est GFR (MDRD) Non-Af 19 L Glucose 206 H POC Glucose Lactic Acid Calcium 8.3 L Phosphorus 5.8 H Magnesium 1.6 Total Bilirubin 1.1 Direct Bilirubin 0.5 H Neonat Total Bilirubin Not Reportable Neonat Direct Bilirubin Not Reportable Neonat Indirect Bili Not Reportable AST 32 ALT 16 Alkaline Phosphatase 82 NT-Pro-B Natriuret Pep Total Protein 6.2 L Albumin 2.6 L Urine Color Urine Appearance Urine pH Ur Specific Gary Urine Protein Urine Glucose (UA) Urine Ketones Urine Blood Urine Nitrite Urine Bilirubin Urine Urobilinogen Ur Leukocyte Esterase Urine WBC (Auto) Urine RBC (Auto) Urine Bacteria (Auto) Squamous Epi Cells Auto Urine Mucus (Auto) Urine Ascorbic Acid Gastric Occult Blood Influenza A (Rapid) Influenza B (Rapid) 05/03/19 05/03/19 05/03/19 01:03 01:48 05:15 WBC RBC Hgb Hct MCV MCH MCHC RDW Plt Count Lymph % (Auto) Pickett % (Auto) Eos % (Auto) Baso % (Auto) Absolute Neuts (auto) Absolute Lymphs (auto) Absolute Monos (auto) Absolute Eos (auto) Absolute Basos (auto) Total Counted Seg Neutrophils % Seg Neuts % (Manual) Band Neutrophils % Lymphocytes % (Manual) Monocytes % (Manual) Eosinophils % (Manual) Basophils % (Manual) Abs Neuts (Manual) Abs Lymphs (Manual) Abs Monocytes (Manual) Absolute Eos (Manual) Abs Basophils (Manual) Toxic Granulation Toxic Vacuolation Clumped Platelets Platelet Comment Polychromasia Anisocytosis Schistocytes PT INR APTT Carbonic Acid 1.07 HCO3/H2CO3 Ratio 18:1 ABG pH 7.37 ABG pCO2 35.5 ABG pO2 81.2 ABG HCO3 20.1 ABG Total CO2 21.2 L ABG O2 Saturation 95.8 ABG Base Excess -4.6 VBG pH VBG pCO2 VBG HCO3 VBG Base Excess FiO2 80% Sodium Potassium Chloride Carbon Dioxide Anion Gap BUN Creatinine Est GFR ( Amer) Est GFR (MDRD) Non-Af Glucose POC Glucose 237 H Lactic Acid Calcium Phosphorus Magnesium Total Bilirubin Direct Bilirubin Neonat Total Bilirubin Neonat Direct Bilirubin Neonat Indirect Bili AST ALT Alkaline Phosphatase NT-Pro-B Natriuret Pep 6360 H Total Protein Albumin Urine Color Urine Appearance Urine pH Ur Specific Gary Urine Protein Urine Glucose (UA) Urine Ketones Urine Blood Urine Nitrite Urine Bilirubin Urine Urobilinogen Ur Leukocyte Esterase Urine WBC (Auto) Urine RBC (Auto) Urine Bacteria (Auto) Squamous Epi Cells Auto Urine Mucus (Auto) Urine Ascorbic Acid Gastric Occult Blood Influenza A (Rapid) Influenza B (Rapid) 05/03/19 05/03/19 05/03/19 08:30 13:08 17:48 WBC RBC Hgb Hct MCV MCH MCHC RDW Plt Count Lymph % (Auto) Pickett % (Auto) Eos % (Auto) Baso % (Auto) Absolute Neuts (auto) Absolute Lymphs (auto) Absolute Monos (auto) Absolute Eos (auto) Absolute Basos (auto) Total Counted Seg Neutrophils % Seg Neuts % (Manual) Band Neutrophils % Lymphocytes % (Manual) Monocytes % (Manual) Eosinophils % (Manual) Basophils % (Manual) Abs Neuts (Manual) Abs Lymphs (Manual) Abs Monocytes (Manual) Absolute Eos (Manual) Abs Basophils (Manual) Toxic Granulation Toxic Vacuolation Clumped Platelets Platelet Comment Polychromasia Anisocytosis Schistocytes PT INR APTT Carbonic Acid HCO3/H2CO3 Ratio ABG pH ABG pCO2 ABG pO2 ABG HCO3 ABG Total CO2 ABG O2 Saturation ABG Base Excess VBG pH VBG pCO2 VBG HCO3 VBG Base Excess FiO2 Sodium Potassium Chloride Carbon Dioxide Anion Gap BUN Creatinine Est GFR ( Amer) Est GFR (MDRD) Non-Af Glucose POC Glucose 292 H 269 H Lactic Acid Calcium Phosphorus Magnesium Total Bilirubin Direct Bilirubin Neonat Total Bilirubin Neonat Direct Bilirubin Neonat Indirect Bili AST ALT Alkaline Phosphatase NT-Pro-B Natriuret Pep Total Protein Albumin Urine Color Urine Appearance Urine pH Ur Specific Gary Urine Protein Urine Glucose (UA) Urine Ketones Urine Blood Urine Nitrite Urine Bilirubin Urine Urobilinogen Ur Leukocyte Esterase Urine WBC (Auto) Urine RBC (Auto) Urine Bacteria (Auto) Squamous Epi Cells Auto Urine Mucus (Auto) Urine Ascorbic Acid Gastric Occult Blood POSITIVE Influenza A (Rapid) Influenza B (Rapid) 05/03/19 05/04/19 05/04/19 23:06 04:11 04:11 WBC 15.1 H D RBC 2.98 L Hgb 9.3 L Hct 27.3 L MCV 92 MCH 31.3 MCHC 34.1 RDW 15.5 H Plt Count 307 Lymph % (Auto) Not Reportable Pickett % (Auto) Not Reportable Eos % (Auto) Not Reportable Baso % (Auto) Not Reportable Absolute Neuts (auto) Not Reportable Absolute Lymphs (auto) Not Reportable Absolute Monos (auto) Not Reportable Absolute Eos (auto) Not Reportable Absolute Basos (auto) Not Reportable Total Counted 100 Seg Neutrophils % Not Reportable Seg Neuts % (Manual) 80 H Band Neutrophils % 6 H Lymphocytes % (Manual) 7 L Monocytes % (Manual) 7 Eosinophils % (Manual) 0 Basophils % (Manual) 0 Abs Neuts (Manual) 13.0 H Abs Lymphs (Manual) 1.1 Abs Monocytes (Manual) 1.1 Absolute Eos (Manual) 0.0 Abs Basophils (Manual) 0.0 Toxic Granulation 1+ Toxic Vacuolation PRESENT Clumped Platelets Platelet Comment ADEQUATE Polychromasia SLIGHT Anisocytosis SLIGHT Schistocytes SLIGHT PT INR APTT Carbonic Acid HCO3/H2CO3 Ratio ABG pH ABG pCO2 ABG pO2 ABG HCO3 ABG Total CO2 ABG O2 Saturation ABG Base Excess VBG pH VBG pCO2 VBG HCO3 VBG Base Excess FiO2 Sodium 132.8 L Potassium 4.6 Chloride 102 Carbon Dioxide 23 Anion Gap 8 BUN 54 H Creatinine 4.53 H Est GFR ( Amer) 16 L Est GFR (MDRD) Non-Af 13 L Glucose 179 H POC Glucose 207 H Lactic Acid Calcium 8.0 L Phosphorus Magnesium 2.0 Total Bilirubin Direct Bilirubin Neonat Total Bilirubin Neonat Direct Bilirubin Neonat Indirect Bili AST ALT Alkaline Phosphatase NT-Pro-B Natriuret Pep Total Protein Albumin Urine Color Urine Appearance Urine pH Ur Specific Gary Urine Protein Urine Glucose (UA) Urine Ketones Urine Blood Urine Nitrite Urine Bilirubin Urine Urobilinogen Ur Leukocyte Esterase Urine WBC (Auto) Urine RBC (Auto) Urine Bacteria (Auto) Squamous Epi Cells Auto Urine Mucus (Auto) Urine Ascorbic Acid Gastric Occult Blood Influenza A (Rapid) Influenza B (Rapid) 05/04/19 05/04/19 05/04/19 04:25 05:15 13:49 WBC RBC Hgb Hct MCV MCH MCHC RDW Plt Count Lymph % (Auto) Pickett % (Auto) Eos % (Auto) Baso % (Auto) Absolute Neuts (auto) Absolute Lymphs (auto) Absolute Monos (auto) Absolute Eos (auto) Absolute Basos (auto) Total Counted Seg Neutrophils % Seg Neuts % (Manual) Band Neutrophils % Lymphocytes % (Manual) Monocytes % (Manual) Eosinophils % (Manual) Basophils % (Manual) Abs Neuts (Manual) Abs Lymphs (Manual) Abs Monocytes (Manual) Absolute Eos (Manual) Abs Basophils (Manual) Toxic Granulation Toxic Vacuolation Clumped Platelets Platelet Comment Polychromasia Anisocytosis Schistocytes PT INR APTT Carbonic Acid 1.20 HCO3/H2CO3 Ratio 18:1 ABG pH 7.37 ABG pCO2 39.8 ABG pO2 54.5 L ABG HCO3 22.6 ABG Total CO2 23.9 ABG O2 Saturation 87.7 L ABG Base Excess -2.4 VBG pH VBG pCO2 VBG HCO3 VBG Base Excess FiO2 21% Sodium Potassium Chloride Carbon Dioxide Anion Gap BUN Creatinine Est GFR ( Amer) Est GFR (MDRD) Non-Af Glucose POC Glucose 204 H 174 H Lactic Acid Calcium Phosphorus Magnesium Total Bilirubin Direct Bilirubin Neonat Total Bilirubin Neonat Direct Bilirubin Neonat Indirect Bili AST ALT Alkaline Phosphatase NT-Pro-B Natriuret Pep Total Protein Albumin Urine Color Urine Appearance Urine pH Ur Specific Gary Urine Protein Urine Glucose (UA) Urine Ketones Urine Blood Urine Nitrite Urine Bilirubin Urine Urobilinogen Ur Leukocyte Esterase Urine WBC (Auto) Urine RBC (Auto) Urine Bacteria (Auto) Squamous Epi Cells Auto Urine Mucus (Auto) Urine Ascorbic Acid Gastric Occult Blood Influenza A (Rapid) Influenza B (Rapid) 05/04/19 05/04/1905/03/20 18:35 23:02 23:50 WBC RBC Hgb Hct MCV MCH MCHC RDW Plt Count Lymph % (Auto) Pickett % (Auto) Eos % (Auto) Baso % (Auto) Absolute Neuts (auto) Absolute Lymphs (auto) Absolute Monos (auto) Absolute Eos (auto) Absolute Basos (auto) Total Counted Seg Neutrophils % Seg Neuts % (Manual) Band Neutrophils % Lymphocytes % (Manual) Monocytes % (Manual) Eosinophils % (Manual) Basophils % (Manual) Abs Neuts (Manual) Abs Lymphs (Manual) Abs Monocytes (Manual) Absolute Eos (Manual) Abs Basophils (Manual) Toxic Granulation Toxic Vacuolation Clumped Platelets Platelet Comment Polychromasia Anisocytosis Schistocytes PT INR APTT Carbonic Acid HCO3/H2CO3 Ratio ABG pH ABG pCO2 ABG pO2 ABG HCO3 ABG Total CO2 ABG O2 Saturation ABG Base Excess VBG pH VBG pCO2 VBG HCO3 VBG Base Excess FiO2 Sodium Potassium Chloride Carbon Dioxide Anion Gap BUN Creatinine Est GFR ( Amer) Est GFR (MDRD) Non-Af Glucose POC Glucose 152 H 129 H 136 H Lactic Acid Calcium Phosphorus Magnesium Total Bilirubin Direct Bilirubin Neonat Total Bilirubin Neonat Direct Bilirubin Neonat Indirect Bili AST ALT Alkaline Phosphatase NT-Pro-B Natriuret Pep Total Protein Albumin Urine Color Urine Appearance Urine pH Ur Specific Gary Urine Protein Urine Glucose (UA) Urine Ketones Urine Blood Urine Nitrite Urine Bilirubin Urine Urobilinogen Ur Leukocyte Esterase Urine WBC (Auto) Urine RBC (Auto) Urine Bacteria (Auto) Squamous Epi Cells Auto Urine Mucus (Auto) Urine Ascorbic Acid Gastric Occult Blood Influenza A (Rapid) Influenza B (Rapid) 05/05/19 05/05/19 05/05/19 03:31 03:31 05:13 WBC 15.7 H RBC 3.53 L Hgb 10.7 L Hct 32.3 L MCV 91 MCH 30.3 MCHC 33.1 RDW 15.8 H Plt Count 313 Lymph % (Auto) 5.1 L Pickett % (Auto) 4.6 Eos % (Auto) 0.4 Baso % (Auto) 0.3 Absolute Neuts (auto) 14.1 H Absolute Lymphs (auto) 0.8 Absolute Monos (auto) 0.7 Absolute Eos (auto) 0.1 Absolute Basos (auto) 0.1 Total Counted Seg Neutrophils % 89.6 H Seg Neuts % (Manual) Band Neutrophils % Lymphocytes % (Manual) Monocytes % (Manual) Eosinophils % (Manual) Basophils % (Manual) Abs Neuts (Manual) Abs Lymphs (Manual) Abs Monocytes (Manual) Absolute Eos (Manual) Abs Basophils (Manual) Toxic Granulation Toxic Vacuolation Clumped Platelets Platelet Comment Polychromasia Anisocytosis Schistocytes PT INR APTT Carbonic Acid HCO3/H2CO3 Ratio ABG pH ABG pCO2 ABG pO2 ABG HCO3 ABG Total CO2 ABG O2 Saturation ABG Base Excess VBG pH VBG pCO2 VBG HCO3 VBG Base Excess FiO2 Sodium 136.2 L Potassium 3.6 D Chloride 103 Carbon Dioxide 24 Anion Gap 9 BUN 54 H Creatinine 4.08 H Est GFR ( Amer) 18 L Est GFR (MDRD) Non-Af 15 L Glucose 112 H POC Glucose 125 H Lactic Acid Calcium 8.0 L Phosphorus Magnesium Total Bilirubin Direct Bilirubin Neonat Total Bilirubin Neonat Direct Bilirubin Neonat Indirect Bili AST ALT Alkaline Phosphatase NT-Pro-B Natriuret Pep Total Protein Albumin Urine Color Urine Appearance Urine pH Ur Specific Gary Urine Protein Urine Glucose (UA) Urine Ketones Urine Blood Urine Nitrite Urine Bilirubin Urine Urobilinogen Ur Leukocyte Esterase Urine WBC (Auto) Urine RBC (Auto) Urine Bacteria (Auto) Squamous Epi Cells Auto Urine Mucus (Auto) Urine Ascorbic Acid Gastric Occult Blood Influenza A (Rapid) Influenza B (Rapid) 05/05/19 05/05/19 05/05/19 12:27 19:04 23:16 WBC RBC Hgb Hct MCV MCH MCHC RDW Plt Count Lymph % (Auto) [place]ett % (Auto) Eos % (Auto) Baso % (Auto) Absolute Neuts (auto) Absolute Lymphs (auto) Absolute Monos (auto) Absolute Eos (auto) Absolute Basos (auto) Total Counted Seg Neutrophils % Seg Neuts % (Manual) Band Neutrophils % Lymphocytes % (Manual) Monocytes % (Manual) Eosinophils % (Manual) Basophils % (Manual) Abs Neuts (Manual) Abs Lymphs (Manual) Abs Monocytes (Manual) Absolute Eos (Manual) Abs Basophils (Manual) Toxic Granulation Toxic Vacuolation Clumped Platelets Platelet Comment Polychromasia Anisocytosis Schistocytes PT INR APTT Carbonic Acid HCO3/H2CO3 Ratio ABG pH ABG pCO2 ABG pO2 ABG HCO3 ABG Total CO2 ABG O2 Saturation ABG Base Excess VBG pH VBG pCO2 VBG HCO3 VBG Base Excess FiO2 Sodium Potassium Chloride Carbon Dioxide Anion Gap BUN Creatinine Est GFR ( Amer) Est GFR (MDRD) Non-Af Glucose POC Glucose 115 H 164 H 123 H Lactic Acid Calcium Phosphorus Magnesium Total Bilirubin Direct Bilirubin Neonat Total Bilirubin Neonat Direct Bilirubin Neonat Indirect Bili AST ALT Alkaline Phosphatase NT-Pro-B Natriuret Pep Total Protein Albumin Urine Color Urine Appearance Urine pH Ur Specific Gary Urine Protein Urine Glucose (UA) Urine Ketones Urine Blood Urine Nitrite Urine Bilirubin Urine Urobilinogen Ur Leukocyte Esterase Urine WBC (Auto) Urine RBC (Auto) Urine Bacteria (Auto) Squamous Epi Cells Auto Urine Mucus (Auto) Urine Ascorbic Acid Gastric Occult Blood Influenza A (Rapid) Influenza B (Rapid) 05/06/19 05/06/19 05/06/19 03:18 03:18 06:21 WBC 12.2 H RBC 3.58 L Hgb 11.1 L Hct 32.6 L MCV 91 MCH 30.9 MCHC 33.9 RDW 15.7 H Plt Count 350 Lymph % (Auto) [place]ett % (Auto) Eos % (Auto) Baso % (Auto) Absolute Neuts (auto) Absolute Lymphs (auto) Absolute Monos (auto) Absolute Eos (auto) Absolute Basos (auto) Total Counted Seg Neutrophils % Seg Neuts % (Manual) Band Neutrophils % Lymphocytes % (Manual) Monocytes % (Manual) Eosinophils % (Manual) Basophils % (Manual) Abs Neuts (Manual) Abs Lymphs (Manual) Abs Monocytes (Manual) Absolute Eos (Manual) Abs Basophils (Manual) Toxic Granulation Toxic Vacuolation Clumped Platelets Platelet Comment Polychromasia Anisocytosis Schistocytes PT INR APTT Carbonic Acid HCO3/H2CO3 Ratio ABG pH ABG pCO2 ABG pO2 ABG HCO3 ABG Total CO2 ABG O2 Saturation ABG Base Excess VBG pH VBG pCO2 VBG HCO3 VBG Base Excess FiO2 Sodium 137.0 Potassium 4.3 Chloride 103 Carbon Dioxide 27 Anion Gap 7 BUN 53 H Creatinine 3.84 H Est GFR ( Amer) 20 L Est GFR (MDRD) Non-Af 16 L Glucose 103 POC Glucose 102 Lactic Acid Calcium 8.3 L Phosphorus Magnesium Total Bilirubin Direct Bilirubin Neonat Total Bilirubin Neonat Direct Bilirubin Neonat Indirect Bili AST ALT Alkaline Phosphatase NT-Pro-B Natriuret Pep Total Protein Albumin Urine Color Urine Appearance Urine pH Ur Specific Gary Urine Protein Urine Glucose (UA) Urine Ketones Urine Blood Urine Nitrite Urine Bilirubin Urine Urobilinogen Ur Leukocyte Esterase Urine WBC (Auto) Urine RBC (Auto) Urine Bacteria (Auto) Squamous Epi Cells Auto Urine Mucus (Auto) Urine Ascorbic Acid Gastric Occult Blood Influenza A (Rapid) Influenza B (Rapid) 05/06/19 05/06/19 05/06/19 12:10 17:13 23:57 WBC RBC Hgb Hct MCV MCH MCHC RDW Plt Count Lymph % (Auto) Pickett % (Auto) Eos % (Auto) Baso % (Auto) Absolute Neuts (auto) Absolute Lymphs (auto) Absolute Monos (auto) Absolute Eos (auto) Absolute Basos (auto) Total Counted Seg Neutrophils % Seg Neuts % (Manual) Band Neutrophils % Lymphocytes % (Manual) Monocytes % (Manual) Eosinophils % (Manual) Basophils % (Manual) Abs Neuts (Manual) Abs Lymphs (Manual) Abs Monocytes (Manual) Absolute Eos (Manual) Abs Basophils (Manual) Toxic Granulation Toxic Vacuolation Clumped Platelets Platelet Comment Polychromasia Anisocytosis Schistocytes PT INR APTT Carbonic Acid HCO3/H2CO3 Ratio ABG pH ABG pCO2 ABG pO2 ABG HCO3 ABG Total CO2 ABG O2 Saturation ABG Base Excess VBG pH VBG pCO2 VBG HCO3 VBG Base Excess FiO2 Sodium Potassium Chloride Carbon Dioxide Anion Gap BUN Creatinine Est GFR ( Amer) Est GFR (MDRD) Non-Af Glucose POC Glucose 157 H 173 H 211 H Lactic Acid Calcium Phosphorus Magnesium Total Bilirubin Direct Bilirubin Neonat Total Bilirubin Neonat Direct Bilirubin Neonat Indirect Bili AST ALT Alkaline Phosphatase NT-Pro-B Natriuret Pep Total Protein Albumin Urine Color Urine Appearance Urine pH Ur Specific Gary Urine Protein Urine Glucose (UA) Urine Ketones Urine Blood Urine Nitrite Urine Bilirubin Urine Urobilinogen Ur Leukocyte Esterase Urine WBC (Auto) Urine RBC (Auto) Urine Bacteria (Auto) Squamous Epi Cells Auto Urine Mucus (Auto) Urine Ascorbic Acid Gastric Occult Blood Influenza A (Rapid) Influenza B (Rapid) 05/07/19 05/07/19 05/07/19 03:32 03:32 05:56 WBC 9.1 RBC 3.57 L Hgb 10.9 L Hct 32.4 L MCV 91 MCH 30.7 MCHC 33.7 RDW 15.4 H Plt Count 340 Lymph % (Auto) Pickett % (Auto) Eos % (Auto) Baso % (Auto) Absolute Neuts (auto) Absolute Lymphs (auto) Absolute Monos (auto) Absolute Eos (auto) Absolute Basos (auto) Total Counted Seg Neutrophils % Seg Neuts % (Manual) Band Neutrophils % Lymphocytes % (Manual) Monocytes % (Manual) Eosinophils % (Manual) Basophils % (Manual) Abs Neuts (Manual) Abs Lymphs (Manual) Abs Monocytes (Manual) Absolute Eos (Manual) Abs Basophils (Manual) Toxic Granulation Toxic Vacuolation Clumped Platelets Platelet Comment Polychromasia Anisocytosis Schistocytes PT INR APTT Carbonic Acid HCO3/H2CO3 Ratio ABG pH ABG pCO2 ABG pO2 ABG HCO3 ABG Total CO2 ABG O2 Saturation ABG Base Excess VBG pH VBG pCO2 VBG HCO3 VBG Base Excess FiO2 Sodium 137.5 Potassium 3.8 Chloride 100 Carbon Dioxide 29 Anion Gap 9 BUN 52 H Creatinine 3.42 H Est GFR ( Amer) 22 L Est GFR (MDRD) Non-Af 18 L Glucose 136 H POC Glucose 109 Lactic Acid Calcium 8.6 Phosphorus Magnesium Total Bilirubin Direct Bilirubin Neonat Total Bilirubin Neonat Direct Bilirubin Neonat Indirect Bili AST ALT Alkaline Phosphatase NT-Pro-B Natriuret Pep Total Protein Albumin Urine Color Urine Appearance Urine pH Ur Specific Gary Urine Protein Urine Glucose (UA) Urine Ketones Urine Blood Urine Nitrite Urine Bilirubin Urine Urobilinogen Ur Leukocyte Esterase Urine WBC (Auto) Urine RBC (Auto) Urine Bacteria (Auto) Squamous Epi Cells Auto Urine Mucus (Auto) Urine Ascorbic Acid Gastric Occult Blood Influenza A (Rapid) Influenza B (Rapid) 05/07/19 05/08/19 05/08/19 17:07 00:32 03:37 WBC RBC Hgb Hct MCV MCH MCHC RDW Plt Count Lymph % (Auto) Pickett % (Auto) Eos % (Auto) Baso % (Auto) Absolute Neuts (auto) Absolute Lymphs (auto) Absolute Monos (auto) Absolute Eos (auto) Absolute Basos (auto) Total Counted Seg Neutrophils % Seg Neuts % (Manual) Band Neutrophils % Lymphocytes % (Manual) Monocytes % (Manual) Eosinophils % (Manual) Basophils % (Manual) Abs Neuts (Manual) Abs Lymphs (Manual) Abs Monocytes (Manual) Absolute Eos (Manual) Abs Basophils (Manual) Toxic Granulation Toxic Vacuolation Clumped Platelets Platelet Comment Polychromasia Anisocytosis Schistocytes PT INR APTT Carbonic Acid HCO3/H2CO3 Ratio ABG pH ABG pCO2 ABG pO2 ABG HCO3 ABG Total CO2 ABG O2 Saturation ABG Base Excess VBG pH VBG pCO2 VBG HCO3 VBG Base Excess FiO2 Sodium 136.7 L Potassium 3.7 Chloride 100 Carbon Dioxide 28 Anion Gap 9 BUN 51 H Creatinine 3.55 H Est GFR ( Amer) 21 L Est GFR (MDRD) Non-Af 18 L Glucose 110 POC Glucose 158 H 125 H Lactic Acid Calcium 8.8 Phosphorus 6.0 H Magnesium Total Bilirubin Direct Bilirubin Neonat Total Bilirubin Neonat Direct Bilirubin Neonat Indirect Bili AST ALT Alkaline Phosphatase NT-Pro-B Natriuret Pep Total Protein Albumin Urine Color Urine Appearance Urine pH Ur Specific Gary Urine Protein Urine Glucose (UA) Urine Ketones Urine Blood Urine Nitrite Urine Bilirubin Urine Urobilinogen Ur Leukocyte Esterase Urine WBC (Auto) Urine RBC (Auto) Urine Bacteria (Auto) Squamous Epi Cells Auto Urine Mucus (Auto) Urine Ascorbic Acid Gastric Occult Blood Influenza A (Rapid) Influenza B (Rapid) 05/08/19 05/08/19 06:22 11:31 WBC RBC Hgb Hct MCV MCH MCHC RDW Plt Count Lymph % (Auto) Pickett % (Auto) Eos % (Auto) Baso % (Auto) Absolute Neuts (auto) Absolute Lymphs (auto) Absolute Monos (auto) Absolute Eos (auto) Absolute Basos (auto) Total Counted Seg Neutrophils % Seg Neuts % (Manual) Band Neutrophils % Lymphocytes % (Manual) Monocytes % (Manual) Eosinophils % (Manual) Basophils % (Manual) Abs Neuts (Manual) Abs Lymphs (Manual) Abs Monocytes (Manual) Absolute Eos (Manual) Abs Basophils (Manual) Toxic Granulation Toxic Vacuolation Clumped Platelets Platelet Comment Polychromasia Anisocytosis Schistocytes PT INR APTT Carbonic Acid HCO3/H2CO3 Ratio ABG pH ABG pCO2 ABG pO2 ABG HCO3 ABG Total CO2 ABG O2 Saturation ABG Base Excess VBG pH VBG pCO2 VBG HCO3 VBG Base Excess FiO2 Sodium Potassium Chloride Carbon Dioxide Anion Gap BUN Creatinine Est GFR ( Amer) Est GFR (MDRD) Non-Af Glucose POC Glucose 119 H 143 H Lactic Acid Calcium Phosphorus Magnesium Total Bilirubin Direct Bilirubin Neonat Total Bilirubin Neonat Direct Bilirubin Neonat Indirect Bili AST ALT Alkaline Phosphatase NT-Pro-B Natriuret Pep Total Protein Albumin Urine Color Urine Appearance Urine pH Ur Specific Gary Urine Protein Urine Glucose (UA) Urine Ketones Urine Blood Urine Nitrite Urine Bilirubin Urine Urobilinogen Ur Leukocyte Esterase Urine WBC (Auto) Urine RBC (Auto) Urine Bacteria (Auto) Squamous Epi Cells Auto Urine Mucus (Auto) Urine Ascorbic Acid Gastric Occult Blood Influenza A (Rapid) Influenza B (Rapid) Chest X-Ray 05/02/19 00:00 IMPRESSION: Cardiomegaly with extensive bilateral airspace opacities. Endotracheal and enteric tubes in place, as above copyright 2011 [employer]- All Rights Reserved Chest X-Ray 05/02/19 10:19 IMPRESSION: Bibasilar pneumonitis. Chest X-Ray 05/04/19 05:00 IMPRESSION: Markedly improved aeration bilaterally, likely resolving edema. Retraction of the endotracheal tube with tip overlying the proximal thoracic trachea, 10.5 cm above the payton. Enteric tube side port overlies distal esophagus. Consider repositioning. IMPRESSION RECOMMENDATION: 1. Acute respiratory failure. Patient required intubation. Now patient extubated. This is secondary to acute volume overload systolic heart failure and biventricular acute on chronic systolic heart failure and acute on chronic kidney disease significant pulmonary hypertension. 2. Acute on chronic biventricular systolic heart failure: Continue diuresis. Once renal function stabilizes we will start the patient on afterload reduction and Toprol-XL. 3. Acute on chronic renal failure: Nephrology on board. 4. Dilated cardiomyopathy with moderately reduced LV ejection fraction 5. Moderate to severe pulmonary hypertension: 6. Hypertension: Continue antihypertensives 7. Diabetes mellitus: Continue antidiabetic regimen and Accu-Cheks as per protocol 8. History of EtOH abuse: No signs of withdrawal Medications reviewed. Medical regimen and management plan discussed with program instructor and saxophone assembler. Medical decision making is a moderate complexity. 40 minutes spent on this patient more than 50% of time spent in direct patient care. Will sign off. The patient will follow-up with me in the office as he is a patient of mine who follows up regularly with me in the office. My cell phone numbers given to the patient to call me if he has any problems.
== END 2019-05-08 15:30 | disposition home health service (06) | DRG 291 ==
LOC: ER 10:03 → EH 15:34 → 4S 16:40 → ICU 23:37 → OBSVTOIN 23:58 → 4N 05-07 17:54
PROVIDERS: ADMIT Internal Medicine Critical Care Medicine; ATTEND Registered Nurse
PROC: 5A1945Z Respiratory Ventilation, 24-96 Consecutive Hours (ICD-10-PCS; principal; 2019-05-02)
PROC: 0BH17EZ Insertion of Endotracheal Airway into Trachea, Via Natural or Artificial Opening (ICD-10-PCS; 2019-05-02)
DX: I13.0 Hypertensive heart and chronic kidney disease with heart failure and stage 1 through stage 4 chronic kidney disease, or unspecified chronic kidney disease (principal); J96.00 Acute respiratory failure, unspecified whether with hypoxia or hypercapnia; J69.0 Pneumonitis due to inhalation of food and vomit; I50.43 Acute on chronic combined systolic (congestive) and diastolic (congestive) heart failure; R78.81 Bacteremia; N17.9 Acute kidney failure, unspecified; N25.81 Secondary hyperparathyroidism of renal origin; E87.1 Hypo-osmolality and hyponatremia; I27.20 Pulmonary hypertension, unspecified; E83.39 Other disorders of phosphorus metabolism; J44.9 Chronic obstructive pulmonary disease, unspecified; E86.0 Dehydration; E11.22 Type 2 diabetes mellitus with diabetic chronic kidney disease; N18.3 Chronic kidney disease, stage 3 (moderate); E11.43 Type 2 diabetes mellitus with diabetic autonomic (poly)neuropathy; E11.51 Type 2 diabetes mellitus with diabetic peripheral angiopathy without gangrene; I42.0 Dilated cardiomyopathy; R11.2 Nausea with vomiting, unspecified; K29.70 Gastritis, unspecified, without bleeding; I87.2 Venous insufficiency (chronic) (peripheral); I89.0 Lymphedema, not elsewhere classified; E87.5 Hyperkalemia; K27.9 Peptic ulcer, site unspecified, unspecified as acute or chronic, without hemorrhage or perforation; M19.90 Unspecified osteoarthritis, unspecified site; D64.9 Anemia, unspecified; B95.1 Streptococcus, group B, as the cause of diseases classified elsewhere; F10.10 Alcohol abuse, uncomplicated; E66.9 Obesity, unspecified; I34.0 Nonrheumatic mitral (valve) insufficiency; I36.1 Nonrheumatic tricuspid (valve) insufficiency; Z79.84 Long term (current) use of oral hypoglycemic drugs; Z79.82 Long term (current) use of aspirin; Z87.01 Personal history of pneumonia (recurrent); Z82.49 Family history of ischemic heart disease and other diseases of the circulatory system; Z68.33 Body mass index [BMI] 33.0-33.9, adult
CPT/HCPCS: 31500; 36415; 71045; 71046; 80048; 80053; 81001; 82271; 82803; 82962; 83605; 83735; 83880; 84100; 85025; 85027; 85610; 85730; 87040; 87070; 87077; 87186; 87205; 87804; 93005; 93010; 93306; 94002; 94003; 94640; 94660; 96361; 96365; 96375; 99231; 99232; 99285; 99291; 99292; C9113; G0378; J0692; J1644; J1815; J1940; J2250; J2405; J2543; J2704; J2930; J3370; J3490; J7060; J7120; J7620

== ENCOUNTER 2019-06-04 07:31 | Inpatient (IN) | payer MEDICARE, MEDICAID ==
[2019-06-04] MEDS ORDERED: NITROGLYCERIN 2% OINTMENT 1 GM PACKET TP ONE (07:39)
[2019-06-04] MEDS ORDERED: CAPTOPRIL 12.5 MG TABLET PO ONE (07:40)
[2019-06-04] MEDS ORDERED: ASPIRIN 81 MG TABLET, CHEWABLE PO ONE (07:40)
[2019-06-04] MEDS ORDERED: FUROSEMIDE INJ/PF 100 MG/10 ML SDV IV ONE (07:40)
[2019-06-04] MEDS ORDERED: ONDANSETRON HCL INJ/PF 4 MG/2 ML SDV ONE (07:48)
[2019-06-04] MEDS ORDERED: MORPHINE SULFATE 10 MG/ML INJ IV ONE (07:56)
[2019-06-04] MEDS ORDERED: ONDANSETRON HCL INJ/PF 4 MG/2 ML SDV IV ONE (07:56)
[2019-06-04 08:04] LABS: ABSOLUTE BASOPHILS # (AUTO) 0.1 10^3/uL (0.0-0.2); ABSOLUTE EOSINOPHILS # (AUTO) 0.1 10^3/uL (0.0-0.6); ABSOLUTE LYMPHOCYTES (AUTO) 1.5 10^3/uL (0.5-4.7); ABSOLUTE MONOCYTES (AUTO) 0.8 10^3/uL (0.1-1.4); ABSOLUTE NEUT (AUTO) 13.8 10^3/uL (1.7-8.2); BASOPHILS % (AUTO) 0.8 % (0-2); EOSINOPHILS % (AUTO) 0.8 % (0-6); HEMOGLOBIN 10.9 g/dL (13.5-17.0); LYMPHOCYTES % (AUTO) 9.2 % (13-45); MEAN CORPUSCULAR HEMOGLOBIN 30.4 pg (27.0-33.4); MEAN CORPUSCULAR HGB CONC 33.9 g/dL (32.0-36.0); MEAN CORPUSCULAR VOLUME 90 fl (80-97); MONOCYTES % (AUTO) 4.8 % (3-13); PLATELET COUNT 420 10^3/uL (150-450); RED BLOOD COUNT 3.57 10^6/uL (4.35-5.55); RED CELL DISTRIBUTION WIDTH 15.3 % (11.5-14.0); SEGMENTED NEUTROPHILS % (AUTO) 84.4 % (42-78); TOTAL CELLS COUNTED % (AUTO) 100 %; WHITE BLOOD COUNT 16.3 10^3/uL (4.0-10.5)
--- NOTE | 2019-06-04 08:15 | RADIOLOGY REPORT (SQ) ---
EXAM DESCRIPTION: CHEST SINGLE VIEW IMAGES COMPLETED DATE/TIME: 06/04/2019 8:03 am REASON FOR STUDY: htn COMPARISON: 05/04/2019. EXAM PARAMETERS: NUMBER OF VIEWS: One view. TECHNIQUE: Single frontal radiographic view of the chest acquired. RADIATION DOSE: NA LIMITATIONS: None. FINDINGS: LUNGS AND PLEURA: Bilateral basilar airspace disease. Small pleural effusions. MEDIASTINUM AND HILAR STRUCTURES: No masses. Contour normal. HEART AND VASCULAR STRUCTURES: Mild cardiomegaly. BONES: No acute findings. HARDWARE: None in the chest. OTHER: No other significant finding. IMPRESSION: MILD CARDIOMEGALY. BASILAR AIRSPACE DISEASE WITH SMALL PLEURAL EFFUSIONS. DIFFERENTIAL INCLUDES PULMONARY EDEMA AND/OR PNEUMONIA. TECHNICAL DOCUMENTATION: JOB ID: [id number] 2010 [email or web address]- All Rights Reserved Reading location - IP/workstation name: [email or web address]
[2019-06-04 08:29] LABS: ALBUMIN 3.3 g/dL (3.5-5.0); ALKALINE PHOSPHATASE 118 U/L (38-126); ANION GAP 10 (5-19); ASPARTATE AMINO TRANSFERASE 24 U/L (17-59); BILIRUBIN,TOTAL 0.8 mg/dL (0.2-1.3); BLOOD UREA NITROGEN 23 mg/dL (7-20); CALCIUM 8.8 mg/dL (8.4-10.2); CARBON DIOXIDE 22 mmol/L (22-30); CHLORIDE 105 mmol/L (98-107); GLUCOSE 214 mg/dL (75-110); POTASSIUM 3.3 mmol/L (3.6-5.0); TOTAL PROTEIN 7.3 g/dL (6.3-8.2)
[2019-06-04 08:39] LABS: TROPONIN I 0.025 ng/mL
[2019-06-04] MEDS ORDERED: MAGNESIUM SULFATE/D5W 1 GM/100 ML RTUPB IV ONE (08:41)
[2019-06-04 09:28] LABS: VENOUS BLOOD BASE EXCESS -0.7 mmol/L; VENOUS BLOOD HCO3 24.2 mmol/L (20-32); VENOUS BLOOD PH 7.39 (7.30-7.42)
--- NOTE | 2019-06-04 10:13 | PDOC CONSULTATION ---
Consultation Consult Date: 06/04/19 Provider Consulted: TRAM MORENO Consult reason:: CHF History of Present Illness Admission Date/PCP: JADIEL SHARPE MD Patient complains of: Shortness of breath. History of Present Illness: JARED HORVATH JR is a 58 year old male with history of heart failure with reduced ejection fraction, stage III-IV CKD, chronic lower extremity edema, dilated cardiomyopathy, moderate to severe pulmonary hypertension, essential hypertension, type 2 diabetes, alcohol abuse who is consulted to cardiology for further evaluation and management of heart failure. The patient was admitted to this facility 05/02/2019 through 05/08/2019 at which time he was intubated due to severe respiratory failure. He was diuresed appropriately and was disc harged. Unfortunately, he now presents again to the emergency room with a few days of shortness of breath and frothy sputum. I evaluated him in the emergency room where he is found to be sitting up in the stretcher on BiPAP after EMS brought him in with a low oxygen saturation. He complains of shortness of breath but denies chest pain, diaphoresis, palpitations, syncope and presyncope. Physical exam on 06/04/2019: GENERAL: Pleasant, speaking in short sentences. Oriented x3 with normal mood. Mild respiratory distress on BiPAP. Disheveled and well developed. HEENT: Normocephalic, atraumatic. Pupils equal. Sclerae anicteric. Oropharynx moist. NECK: Difficult to evaluate for JVD due to his body habitus. No carotid bruits. LUNGS: Decreased breath sounds at both bases. On BiPAP. CARDIOVASCULAR: Mildly tachycardic. Regular rate and rhythm, normal S1 and S2 without murmurs, rubs, or gallops. PMI not displaced. ABDOMEN: No masses or tenderness to palpation. No bruit. No splenomegaly or hepatomegaly. No abdominal aorta bruit noted. EXTREMITIES: 2+ pitting edema bilaterally, no cyanosis, no clubbing. Difficult to palpate pulses due to his body habitus and lower extremity edema. MUSCULOSKELETAL: No chest tenderness to palpation. NEUROLOGIC: Nonfocal. No gross sensory or motor deficits bilateral upper or lower extremities. Cardiac studies: Echocardiogram on 05/04/2019 at [facility]: -Mild to moderate LVE. -Mild concentric LVH. -EF 40 to 45%. -Grade 1 diastolic dysfunction. -Global hypokinesis. -Mild biatrial enlargement. -Mild MAC without stenosis. -Trace MR, mild TR. -Moderate to severe pulmonary hypertension with pressures between 55 and 60 mmHg. Past Medical History Cardiac Medical History: Reports: Congestive Heart Failure, Hyperlipidema, Hypertension, Peripheral Vascular Disease Pulmonary Medical History: Reports: Chronic Obstructive Pulmonary Disease (COPD), Pneumonia, Respiratory Failure Denies: Asthma, Bronchitis, Tuberculosis Neurological Medical History: Denies: Seizures Endocrine Medical History: Reports: Diabetes Mellitus Type 2 Denies: Diabetes Mellitus Type 1, Hyperthyroidism, Hypothyroidism Renal/ Medical History: Denies: End Stage Renal Disease GI Medical History: Denies: Cirrhosis, Crohn's Disease, Gastroesophageal Reflux Disease, Hepatitis, Ulcerative Colitis Musculoskeltal Medical History: Reports: Arthritis Denies: Gout Skin Medical History: Denies: Eczema, Psoriasis Psychiatric Medical History: Denies: Bipolar Disorder, Depression Hematology: Denies: Anemia, Bleeding Tendencies Past Surgical History Past Surgical History: Reports: Orthopedic Surgery - 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 Social History Smoking Status: Never Smoker Frequency of Alcohol Use: Heavy Hx Recreational Drug Use: No Drugs: None Hx Prescription Drug Abuse: No Family History Family History: CAD, Hypertension, Malignancy. denies: DM Parental Family History Reviewed: Yes Children Family History Reviewed: Yes Sibling(s) Family History Reviewed.: Yes Medication/Allergy Home Medications: Aspirin [Ecotrin 81 mg EC Tablet] 81 mg PO DAILY 12/12/18 Atorvastatin Calcium [Lipitor 40 mg Tablet] 40 mg PO QHS 12/12/18 Glipizide [Glipizide Xl] 10 mg PO [id number] 12/12/18 Amlodipine Besylate [Norvasc 10 mg Tablet] 10 mg PO DAILY #30 tablet 12/15/18 Ergocalciferol (Vitamin D2) [Vitamin D2] 50 mcg PO MO@1000 05/02/19 Metoprolol Succinate [Toprol Xl 25 mg Tab.sr] 25 mg PO DAILY 05/02/19 Torsemide [Demadex 20 mg Tablet] 20 mg PO DAILY 05/02/19 Valsartan 320 mg PO DAILY 05/02/19 Acetaminophen [Tylenol 325 mg Tablet] 650 mg NG Q4HP PRN tablet 05/08/19 Allergies/Adverse Reactions: No Known Allergies Allergy (Verified 06/10/18 17:31) Physical Exam Vital Signs: Temp Pulse Resp BP Pulse Ox 100.8 F H 21 H 185/104 H 98 06/04/19 09:01 06/04/19 09:01 06/04/19 09:01 06/04/19 09:01 Intake & Output 06/03/19 06/04/19 06/05/19 06:59 06:59 06:59 Weight 117.934 kg Results Laboratory Results: 06/04/19 07:45 06/04/19 07:45 06/04/19 06/04/19 06/04/19 07:45 07:45 09:15 WBC 16.3 H RBC 3.57 L Hgb 10.9 L Hct 32.0 L MCV 90 MCH 30.4 MCHC 33.9 RDW 15.3 H Plt Count 420 Seg Neutrophils % 84.4 H VBG pH 7.39 VBG pCO2 41.0 VBG HCO3 24.2 VBG Base Excess -0.7 Sodium 137.3 Potassium 3.3 L Chloride 105 Carbon Dioxide 22 Anion Gap 10 BUN 23 H Creatinine 3.13 H Est GFR ( Amer) 25 L Glucose 214 H Calcium 8.8 Magnesium 1.5 L Total Bilirubin 0.8 AST 24 Alkaline Phosphatase 118 Total Protein 7.3 Albumin 3.3 L 06/04/19 07:45 Troponin I 0.025 NT-Pro-B Natriuret Pep 3870 H Impressions: Chest X-Ray 06/04/19 07:41 IMPRESSION: MILD CARDIOMEGALY. BASILAR AIRSPACE DISEASE WITH SMALL PLEURAL EFFUSIONS. DIFFERENTIAL INCLUDES PULMONARY EDEMA AND/OR PNEUMONIA. 06/04/19 07:45 06/04/19 07:45 MCV 90 fl (80-97) 06/04/19 07:45 MCH 30.4 pg (27.0-33.4) 06/04/19 07:45 MCHC 33.9 g/dL (32.0-36.0) 06/04/19 07:45 RDW 15.3 % (11.5-14.0) H 06/04/19 07:45 Seg Neutrophils % 84.4 % (42-78) H 06/04/19 07:45 VBG pH 7.39 (7.30-7.42) 06/04/19 09:15 VBG pCO2 41.0 mmHg (35-63) 06/04/19 09:15 VBG HCO3 24.2 mmol/L (20-32) 06/04/19 09:15 VBG Base Excess -0.7 mmol/L 06/04/19 09:15 Chloride 105 mmol/L (98-107) 06/04/19 07:45 Carbon Dioxide 22 mmol/L (22-30) 06/04/19 07:45 Anion Gap 10 (5-19) 06/04/19 07:45 Est GFR ( Amer) 25 (>60) L 06/04/19 07:45 Glucose 214 mg/dL (75-110) H 06/04/19 07:45 Calcium 8.8 mg/dL (8.4-10.2) 06/04/19 07:45 Magnesium 1.5 mg/dL (1.6-2.3) L 06/04/19 07:45 Total Bilirubin 0.8 mg/dL (0.2-1.3) 06/04/19 07:45 AST 24 U/L (17-59) 06/04/19 07:45 Alkaline Phosphatase 118 U/L (38-126) 06/04/19 07:45 Total Protein 7.3 g/dL (6.3-8.2) 06/04/19 07:45 Albumin 3.3 g/dL (3.5-5.0) L 06/04/19 07:45 Blood Type O POSITIVE 06/04/19 07:45 Antibody Screen NEGATIVE 06/04/19 07:45 06/04/19 07:45 Troponin I 0.025 NT-Pro-B Natriuret Pep 3870 H Current Medication List Discontinued Medications Generic Name Dose Route Start Last Admin Trade Name Reyna PRN Reason Stop Dose Admin Aspirin 162 mg 06/04/19 07:40 06/04/19 07:46 Aspirin 81 Mg Chewable Tablet PO 06/04/19 07:41 162 mg NOW ONE Administration Captopril 6.25 mg 06/04/19 07:40 06/04/19 07:54 Capoten 12.5 Mg Tablet PO 06/04/19 07:41 6.25 mg NOW ONE Administration Furosemide 80 mg 06/04/19 07:40 06/04/19 07:46 Lasix Inj/Pf 100 Mg/10 Ml Sdv IV 06/04/19 07:41 80 mg NOW ONE Administration Magnesium Sulfate/Dextrose 1 gm in 100 mls @ 100 mls/hr 06/04/19 08:41 06/04/19 09:03 Magnesium Sulfate [id number] 1 Gm/100 Ml Premix IV 06/04/19 09:40 100 mls/hr NOW ONE 100 mls/hr Administration Morphine Sulfate 2 mg 06/04/19 07:56 06/04/19 08:02 Morphine 10 Mg/Ml Inj IV 06/04/19 07:57 2 mg NOW ONE Administration Nitroglycerin 1 gm 06/04/19 07:39 06/04/19 07:47 Nitrol 2% Ointment 1gm Packet TP 06/04/19 07:40 1 gm NOW ONE Administration Ondansetron HCl Confirm 06/04/19 07:48 06/04/19 07:56 Zofran Inj/Pf 4 Mg/2 Ml Sdv Administered 06/04/19 07:49 4 mg Dose Administration 4 mg .ROUTE .STK-MED ONE Ondansetron HCl 4 mg 06/04/19 07:56 06/04/19 08:46 Zofran Inj/Pf 4 Mg/2 Ml Sdv IV 06/04/19 07:57 Not Given NOW ONE Assessment & Plan - Diagnosis (1) Acute on chronic heart failure with reduced ejection fraction and diastolic dysfunction Plan: The patient presents today with acute exacerbation of his chronic heart failure with reduced ejection fraction and moderate respiratory distress. He has been treated in the emergency room with BiPAP and appears to be doing okay. Unfortunately the history is limited by his current treatment and the patient is unable to tell me whether or not he has been compliant with medications and diet. He was just admitted here for the same issue approximately 1 month ago and it is of paramount importance to try to figure out why the patient is having frequent heart failure exacerbations whether it is medication noncompliance, d iet noncompliance, ischemic heart disease or all of the above. For the time being he will be diuresed. He already received 1 dose of Lasix in the emergency room. Recommendations: -Continue with diuresis with diuretic of your choice. -Restrict fluid intake to 1500 cc daily. -Daily weights and chart. -Strict intake and output. -Low-sodium diet. -Replace electrolytes as needed. -No need to repeat echocardiogram as he already had one approximately 1 month ago. -We will continue to follow-up with you. (2) Chronic kidney disease, stage III (moderate) Plan: His renal function in the emergency room is stable and appears to be at his baseline however I suspect it will deteriorate some with diuresis. He was evaluated by his director of federal sales, Dr. Epeprson, in the prior hospitalization but it looks like his renal function actually improved with diuresis. Recommendations: -Continue with diuresis. -Consider nephrology consult at your discretion. (3) ETOH abuse Plan: The patient is not exhibiting any obvious signs of withdrawal at this point. Recommendations: -Continue to monitor for withdrawal symptoms. (4) Hypertension Qualifiers: Hypertension type: essential hypertension Qualified Code(s): I10 - Essential (primary) hypertension Is this a current diagnosis for this admission?: Yes Plan: He is hypertensive in the emergency room which is likely multifactorial given his respiratory distress and fluid overload. I suspect his blood pressure will decrease as he is diuresed and his respiratory distress is relieved. Recommendations: -Continue with outpatient medical regimen. -We will continue follow-up with you. (5) Type 2 diabetes mellitus Qualifiers: Diabetes mellitus manager terminal insulin use: without half-way use Diabetes mellitus complication status: with kidney complications Diabetes mellitus complication detail: with chronic kidney disease Chronic kidney disease stage: stage 3 (moderate) Qualified Code(s): E11.22 - Type 2 diabetes mellitus with diabetic chronic kidney disease; N18.3 - Chronic kidney disease, stage 3 (moderate) Plan: I will defer further management to his primary team.
[2019-06-04 10:55] LABS: APPEARANCE,URINE CLEAR; BILIRUBIN,URINE NEGATIVE (NEGATIVE); COLOR,URINE STRAW; GLUCOSE, URINE 150 mg/dL (NEGATIVE); KETONES,URINE NEGATIVE (NEGATIVE); LEUKOCYTE ESTERASE,URINE NEGATIVE (NEGATIVE); NITRITE,URINE NEGATIVE (NEGATIVE); PROTEIN,URINE >=500 mg/dL (NEGATIVE); URINE SPECIFIC GRAVITY 1.009; UROBILINOGEN,URINE NEGATIVE mg/dL (<2.0)
--- NOTE | 2019-06-04 10:56 | ER Document Report ---
Entered by PABLO YUSUF SCRIBE 06/04/19 0740 Acting as scribe for:BERTRAM RODRIGUEZ DO ED General - General Stated Complaint: VOMITING BLOOD Time Seen by Provider: 06/04/19 07:34 Mode of Arrival: Wheelchair Information source: Patient Cannot obtain history due to: Unstable vital signs Notes: This 58 year old male patient presents to the emergency department today in respiratory distress. On arrival here the patient had a room air oxygen saturation in the mid 60s. Patient reports his symptoms all started this morning when he woke up at around 6:00 AM, just prior to arrival here. Patient states along with this shortness of breath he has had a cough, bringing up pink frothy sputum. Patient was seen here about a month ago with CHF exacerbation and his presentation today is nearly identical to that visit. Patient states that he always has leg swelling, but he mentions that it is worse today. TRAVEL OUTSIDE OF THE [place] IN LAST 30 DAYS: No - Related Data Allergies/Adverse Reactions: No Known Allergies Allergy (Verified 06/10/18 17:31) Past Medical History - General Information source: Patient, [facility] Records Cannot obtain history due to: Unstable vital signs - Social History Smoking Status: Smoker,Current Status Unk Frequency of alcohol use: Heavy - according to [facility] records Drug Abuse: None Lives with: Family Family History: Reviewed & Not Pertinent, CAD, Hypertension, Malignancy - Past Medical History Cardiac Medical History: Reports: Hx Congestive Heart Failure, Hx Hypercholesterolemia, Hx Hypertension, Hx Peripheral Vascular Disease Pulmonary Medical History: Reports: Hx COPD, Hx Pneumonia, Hx Respiratory Failure Endocrine Medical History: Reports: Hx Diabetes Mellitus Type 2 Musculoskeletal Medical History: Reports Hx Arthritis, Reports Hx Musculoskeletal Deformity, Reports Hx Musculoskeletal Trauma Traumatic Medical History: Reports: Hx Fractures Past Surgical History: Reports: Hx Abdominal Surgery, Hx Orthopedic Surgery - 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 fourth and fifth toes in 2015 - Immunizations Hx Diphtheria, Pertussis, Tetanus Vaccination: Yes Hx Pneumococcal Vaccination: 02/25/18 Review of Systems - Review of Systems Constitutional: denies: Fever EENT: No symptoms reported Cardiovascular: No symptoms reported Respiratory: See HPI, Cough, Short of breath, Sputum Gastrointestinal: No symptoms reported Genitourinary: No symptoms reported Male Genitourinary: No symptoms reported Musculoskeletal: See HPI, Leg swelling, Ankle swelling Skin: No symptoms reported Hematologic/Lymphatic: No symptoms reported Neurological/Psychological: No symptoms reported -: Yes All other systems reviewed and negative Physical Exam - Vital signs Vitals: Temp 97.8 F 06/04/19 07:33 - Notes Notes: Physical Exam: General: Alert, ill-appearing. Dyspneic, 2-3 word sentences. Oxygen saturation of 66% on room air. HEENT: Normocephalic. Atraumatic. PERRL. Extraocular movements intact. Oropharynx clear. Neck: Supple. Non-tender. Respiratory: Moderate to severe respiratory distress. Diminished, poor air movement, rales bilaterally. Coughing up frothy blood tinged sputum. Cardiovascular: Regular rate and rhythm. Abdominal: Morbidly obese. Non-tender. No distension. Normal Bowel Sounds. Back: No gross abnormalities. Extremities: Moves all four extremities. Upper extremities: Normal inspection. Normal ROM. Lower extremities: 2-3+ lower extremity edema. Normal ROM. Neurological: Normal cognition. AAOx4. Normal speech. Psychological: Normal affect. Normal Mood. Skin: Warm. Dry. Normal color. Course - Re-evaluation Re-evalutation: 06/04/19 09:37 MDM 58 year old male - pt of [facility] - awoke with shortness of breath, pinky frothy sputum and swollen ankles. His ankles look chronically swollen and he lives with htn, chronic renal insuf, anemia and dm. He is greatly improved here after IV lasix, captopril and ntg. CXR official reading questions pneumonia, however clinically he looks like severe decompensated chf. He has responded well here to aggressive treatment and I have discussed with Cleopatra who has graciously agreed to see and evaluate for admission. 06/04/19 13:19 Daughter is Rupa Silvestre . - Vital Signs Vital signs: Temp Pulse Resp BP Pulse Ox 100.8 F H 27 H 156/89 H 94 06/04/19 09:01 06/04/19 12:01 06/04/19 12:01 06/04/19 12:01 - Laboratory Result Diagrams: 06/04/19 07:45 06/04/19 07:45 Laboratory results interpreted by me: 06/04/19 06/04/19 06/04/19 07:34 07:45 07:45 WBC 16.3 H RBC 3.57 L Hgb 10.9 L Hct 32.0 L RDW 15.3 H Lymph % (Auto) 9.2 L Absolute Neuts (auto) 13.8 H Seg Neutrophils % 84.4 H D-Dimer Potassium 3.3 L BUN 23 H Creatinine 3.13 H Est GFR ( Amer) 25 L Est GFR (MDRD) Non-Af 20 L Glucose 214 H POC Glucose 203 H Magnesium 1.5 L C-Reactive Protein NT-Pro-B Natriuret Pep Albumin 3.3 L Urine Protein Urine Glucose (UA) Urine Blood 06/04/19 06/04/19 06/04/19 07:45 07:45 07:45 WBC RBC Hgb Hct RDW Lymph % (Auto) Absolute Neuts (auto) Seg Neutrophils % D-Dimer 1.66 H Potassium BUN Creatinine Est GFR ( Amer) Est GFR (MDRD) Non-Af Glucose POC Glucose Magnesium C-Reactive Protein 16.4 H NT-Pro-B Natriuret Pep 3870 H Albumin Urine Protein Urine Glucose (UA) Urine Blood 06/04/19 10:20 WBC RBC Hgb Hct RDW Lymph % (Auto) Absolute Neuts (auto) Seg Neutrophils % D-Dimer Potassium BUN Creatinine Est GFR ( Amer) Est GFR (MDRD) Non-Af Glucose POC Glucose Magnesium C-Reactive Protein NT-Pro-B Natriuret Pep Albumin Urine Protein >=500 H Urine Glucose (UA) 150 H Urine Blood SMALL H - Diagnostic Test Radiology reviewed: Image reviewed, Reports reviewed - EKG Interpretation by [facility] EKG shows normal: Sinus rhythm Rate: Tachycardia Rhythm: NSR [place]/QRS: Left axis deviation - Sinus Tachy Left [place] [address] elevation or depression repolarization abnormality. Critical Care Note - Critical Care Note Total time excluding time spent on procedures (mins): 45 Comments: Bedside care, monitoring response to medicines, adjusting assisted ventilation and frequent rechecks as well as speaking with hospitalist regarding his case. Discharge - Discharge Clinical Impression: Acute on chronic diastolic congestive heart failure, Hypomagnesemia, Hypokalemia CHF exacerbation Qualifiers: Heart failure type: unspecified Qualified Code(s): I50.9 - Heart failure, unspecified Respiratory failure Qualifiers: Chronicity: acute Respiratory failure complication: hypoxia Qualified Code(s): J96.01 - Acute respiratory failure with hypoxia Condition: Fair Disposition: ADMITTED INPATIENT Admitting Provider: Pieter (Hospitalist) Unit Admitted: IMCU I personally performed the services described in the documentation, reviewed and edited the documentation which was dictated to the scribe in my presence, and it accurately records my words and actions.
[2019-06-04] MEDS ORDERED: GUAIFENESIN SYRP 200 MG/10 ML UDC PO PRN (11:13)
[2019-06-04] MEDS ORDERED: ACETAMINOPHEN 325 MG TABLET PO PRN (11:13)
[2019-06-04] MEDS ORDERED: DEXTROSE 40% GEL 15 GM TUBE PO PRN ×2 (11:22)
[2019-06-04] MEDS ORDERED: DEXTROSE 50%-WATER 25 GM/50 ML DISP.SYRIN IV PRN ×2 (11:22)
[2019-06-04] MEDS ORDERED: GLUCAGON,HUMAN RECOMB 1 MG INJ IM PRN (11:22)
[2019-06-04] MEDS ORDERED: ALBUTEROL SULFATE HFA (90 MCG/PUFF) 200 PUFF/8.5 GM MDI IH PRN (11:30)
[2019-06-04] MEDS ORDERED: CEFTRIAXONE 1 GM/D5W RTU 1 GM/50 ML RTUPB IV SCH (12:00)
--- NOTE | 2019-06-04 12:04 | PDOC H&P ---
History of Present Illness Admission Date/PCP: JADIEL SHARPE MD Patient complains of: Shortness of breath History of Present Illness: JARED HORVATH JR is a 58 year old male, well-known to the hospital service, with a past medical history significant for CKD 3, enf-[id number] diabetes mellitus, hypertension, chronic systolic CHF (LVEF 40%), pulmonary hypertension, hyperlipidemia, COPD (not on home O2 dependent) arthritis and obesity who presented to the emergency department today with a complaint of evaluation in the emergency department revealed 2 to 3 days of fatigue, generalized weakness, with sudden onset of shortness of breath noted at 5:00 this morning associated with productive cough and hemoptysis. Patient is uncertain as to whether or not he has been running fevers at home. No known sick contacts, although, patient was admitted to [facility] 30 days ago. Evaluation in the emergency department found Temp 100.8, HR 144, room air SPO2 67%, RR 45, BP 232/112, leukocytosis (WBC 16.3) lymphopenia (9.2), Baseline renal function, proBNP, troponin, unremarkable urinalysis, and chest x-ray revealing mild cardiomegaly with basilar airspace disease with differential including pulmonary edema and or pneumonia. He was provided IV furosemide, Catapril, nitroglycerin ointment, aspirin, IV magnesium, and morphine by the ED provider. He was placed on BiPAP with dramatic improvement in his respiratory status and is referred to the hospitalist service for admission and management of the above-stated complaints and findings. Past Medical History Cardiac Medical History: Reports: Congestive Heart Failure, Hyperlipidema, Hypertension, Peripheral Vascular Disease Pulmonary Medical History: Reports: Chronic Obstructive Pulmonary Disease (COPD), Pneumonia, Respiratory Failure Denies: Asthma, Bronchitis, Tuberculosis EENT Medical History: Reports: None Neurological Medical History: Denies: Ischemic CVA, Seizures Endocrine Medical History: Reports: Diabetes Mellitus Type 2, Obesity Denies: Hypothyroidism Renal/ Medical History: Reports: Chronic Kidney Disease GI Medical History: Reports: Gastroesophageal Reflux Disease Denies: Cirrhosis, Crohn's Disease, Hepatitis, Ulcerative Colitis Musculoskeltal Medical History: Reports: Arthritis Denies: Gout Skin Medical History: Denies: Eczema, Psoriasis Psychiatric Medical History: Reports: Alcohol Dependency Denies: Bipolar Disorder, Depression Hematology: Denies: Anemia, Bleeding Tendencies Past Surgical History Past Surgical History: Reports: Orthopedic Surgery - 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 Social History Information Source: Patient Lives with: Family Smoking Status: Former Smoker Electronic Cigarette use?: No Frequency of Alcohol Use: None Hx Recreational Drug Use: No Drugs: None Hx Prescription Drug Abuse: No - Advance Directive Resuscitation Status: Full Code Family History Family History: Reviewed & Not Pertinent, CAD, Hypertension, Malignancy Parental Family History Reviewed: Yes Children Family History Reviewed: Yes Sibling(s) Family History Reviewed.: Yes Medication/Allergy Home Medications: Aspirin [Ecotrin 81 mg EC Tablet] 81 mg PO DAILY 12/12/18 Atorvastatin Calcium [Lipitor 40 mg Tablet] 40 mg PO QHS 12/12/18 Glipizide [Glipizide Xl] 10 mg PO [id number] 12/12/18 Amlodipine Besylate [Norvasc 10 mg Tablet] 10 mg PO DAILY #30 tablet 12/15/18 Ergocalciferol (Vitamin D2) [Vitamin D2] 50 mcg PO MO@1000 05/02/19 Metoprolol Succinate [Toprol Xl 25 mg Tab.sr] 25 mg PO DAILY 05/02/19 Torsemide [Demadex 20 mg Tablet] 20 mg PO DAILY 05/02/19 Valsartan 320 mg PO DAILY 05/02/19 Acetaminophen [Tylenol 325 mg Tablet] 650 mg NG Q4HP PRN tablet 05/08/19 Allergies/Adverse Reactions: No Known Allergies Allergy (Verified 06/10/18 17:31) Review of Systems Constitutional: PRESENT: fatigue. ABSENT: chills, fever(s), headache(s), weight gain, weight loss Eyes: ABSENT: visual disturbances Ears: ABSENT: hearing changes Cardiovascular: PRESENT: dyspnea on exertion. ABSENT: chest pain, edema, orthropnea, palpitations Respiratory: PRESENT: cough, dyspnea, hemoptysis, sputum Gastrointestinal: ABSENT: abdominal pain, constipation, diarrhea, hematemesis, hematochezia, nausea, vomiting Genitourinary: ABSENT: dysuria, hematuria Musculoskeletal: ABSENT: joint swelling Integumentary: ABSENT: rash, wounds Neurological: ABSENT: abnormal gait, abnormal speech, confusion, dizziness, focal weakness, syncope Psychiatric: ABSENT: anxiety, depression, homidical ideation, suicidal ideation Endocrine: ABSENT: cold intolerance, heat intolerance, polydipsia, polyuria Hematologic/Lymphatic: ABSENT: easy bleeding, easy bruising Physical Exam Vital Signs: Temp Pulse Resp BP Pulse Ox 100.8 F H 24 H 157/85 H 95 06/04/19 09:01 06/04/19 11:11 06/04/19 11:11 06/04/19 11:11 Intake & Output 06/03/19 06/04/19 06/05/19 06:59 06:59 06:59 Intake Total 100 Balance 100 Weight 117.934 kg General appearance: PRESENT: no acute distress, obese, well-developed, well- nourished Head exam: PRESENT: atraumatic, normocephalic Eye exam: PRESENT: conjunctiva pink, EOMI, PERRLA. ABSENT: scleral icterus Mouth exam: PRESENT: moist, tongue midline Teeth exam: PRESENT: poor dentation Neck exam: ABSENT: carotid bruit, JVD, lymphadenopathy, thyromegaly Respiratory exam: PRESENT: prolonged expiratory phas, rhonchi, symmetrical, unlabored, other - Supplemental oxygen via nasal cannula. ABSENT: rales, wheezes Cardiovascular exam: PRESENT: RRR, +S1, +S2, systolic murmur, tachycardia - HR 100-110. ABSENT: diastolic murmur, rubs Pulses: PRESENT: normal dorsalis pedis pul Vascular exam: PRESENT: normal capillary refill GI/Abdominal exam: PRESENT: normal bowel sounds, soft. ABSENT: distended, guarding, mass, organolmegaly, rebound, tenderness Rectal exam: PRESENT: deferred Extremities exam: PRESENT: full ROM, +1 edema - Pitting edema BLE, other - Chronic lymphedema. ABSENT: calf tenderness, clubbing, pedal edema Neurological exam: PRESENT: alert, awake, oriented to person, oriented to place, oriented to time, oriented to situation, CN II-XII grossly intact. ABSENT: motor sensory deficit Psychiatric exam: PRESENT: appropriate affect, normal mood. ABSENT: homicidal ideation, suicidal ideation Skin exam: PRESENT: dry, intact, warm. ABSENT: cyanosis, rash Results Laboratory Results: 06/04/19 07:45 06/04/19 07:45 06/04/19 06/04/19 06/04/19 07:45 07:45 07:45 WBC 16.3 H RBC 3.57 L Hgb 10.9 L Hct 32.0 L MCV 90 MCH 30.4 MCHC 33.9 RDW 15.3 H Plt Count 420 Seg Neutrophils % 84.4 H VBG pH VBG pCO2 VBG HCO3 VBG Base Excess Sodium 137.3 Potassium 3.3 L Chloride 105 Carbon Dioxide 22 Anion Gap 10 BUN 23 H Creatinine 3.13 H Est GFR ( Amer) 25 L Glucose 214 H Calcium 8.8 Magnesium 1.5 L Total Bilirubin 0.8 AST 24 Alkaline Phosphatase 118 Total Protein 7.3 Albumin 3.3 L Urine Color Urine Appearance Urine pH Ur Specific [place] Urine Protein Urine Glucose (UA) Urine Ketones Urine Blood Urine Nitrite Ur Leukocyte Esterase Urine WBC (Auto) Urine RBC (Auto) Blood Type O POSITIVE Antibody Screen NEGATIVE 06/04/19 06/04/19 09:15 10:20 WBC RBC Hgb Hct MCV MCH MCHC RDW Plt Count Seg Neutrophils % VBG pH 7.39 VBG pCO2 41.0 VBG HCO3 24.2 VBG Base Excess -0.7 Sodium Potassium Chloride Carbon Dioxide Anion Gap BUN Creatinine Est GFR ( Amer) Glucose Calcium Magnesium Total Bilirubin AST Alkaline Phosphatase Total Protein Albumin Urine Color STRAW Urine Appearance CLEAR Urine pH 7.0 Ur Specific [place] 1.009 Urine Protein >=500 H Urine Glucose (UA) 150 H Urine Ketones NEGATIVE Urine Blood SMALL H Urine Nitrite NEGATIVE Ur Leukocyte Esterase NEGATIVE Urine WBC (Auto) 1 Urine RBC (Auto) 11 Blood Type Antibody Screen 06/04/19 07:45 Troponin I 0.025 NT-Pro-B Natriuret Pep 3870 H Impressions: Chest X-Ray 06/04/19 07:41 IMPRESSION: MILD CARDIOMEGALY. BASILAR AIRSPACE DISEASE WITH SMALL PLEURAL EFFUSIONS. DIFFERENTIAL INCLUDES PULMONARY EDEMA AND/OR PNEUMONIA. Assessment and Plan - Diagnosis (1) Pneumonia Qualifiers: Pneumonia type: due to unspecified organism Laterality: bilateral Lung location: lower lobe of lung Qualified Code(s): J18.9 - Pneumonia, unspecified organism Is this a current diagnosis for this admission?: Yes Plan: Patient is admitted with low-grade fever, leukocytosis, and bilateral lower infiltrates on chest x-ray. Complains of shortness of breath, productive cough, and jesus hemoptysis. Blood and sputum cultures are pending. He is admitted to [facility] on continuous cardiac telemetry. He is empirically placed on IV cefepime and linezolid (avoiding vancomycin secondary to CKD 3) for treatment of healthcare associated pneumonia. We will provide supplemental oxygen as needed to maintain saturations greater than 89%. We will provide scheduled and as needed albuterol HFA. Twice daily Mucinex, Robitussin as needed. Aggressive pulmonary toilet with incentive spirometer, flutter valve, and early ambulation. (2) Acute on chronic heart failure with reduced ejection fraction and diastolic dysfunction Is this a current diagnosis for this admission?: Yes Plan: Mild exacerbation. Patient has rhonchi on exam, peripheral edema is near his baseline. Patient weight is actually 1 kg lower than his day of discharge last month and proBNP is also decreased from last evaluation. Patient has already received one-time dose of IV furosemide by the ED provider. Cardiology is consulted; appreciate Dr. Merrill's evaluation recommendations. We will resume his home medication regiment once reconciled. Cardiac diet, fluid restricted to 1.5 L daily. Daily weights, strict I&O's. (3) Suspected COVID-19 virus infection Is this a current diagnosis for this admission?: Yes Plan: Pt w/ sudden onset of dyspnea, hypoxia, hemoptysis with fever, leukocytosis, and bilateral infiltrates on CXR. COVID 19 testing pending. Droplet and contact precautions. Avoid nebulizer treatments, high flow nasal cannula, and BiPAP as able. Ferritin, CRP, and d-dimer pending. Remaining management as above. (4) Hemoptysis Is this a current diagnosis for this admission?: Yes Plan: Secondary to #1-3 Supportive care. (5) Acute respiratory failure with hypoxia Is this a current diagnosis for this admission?: Yes Plan: Secondary to #1-4 Evaluation and management as above. (6) Chronic kidney disease, stage III (moderate) Is this a current diagnosis for this admission?: Yes Plan: Stable and at baseline creatinine. Avoid nephrotoxic medications and dosing as able. Follow-up chemistry. (7) Hypertension Qualifiers: Hypertension type: essential hypertension Qualified Code(s): I10 - Essential (primary) hypertension Is this a current diagnosis for this admission?: Yes Plan: Continue home medications once reconciled. Cardiac diet. (8) Type 2 diabetes mellitus Qualifiers: Diabetes mellitus nursing home insulin use: without intermediate teacher use Diabetes mellitus complication status: with kidney complications Diabetes mellitus complication detail: with chronic kidney disease Chronic kidney disease stage: stage 3 (moderate) Qualified Code(s): E11.22 - Type 2 diabetes mellitus with diabetic chronic kidney disease; N18.3 - Chronic kidney disease, stage 3 (moderate) Is this a current diagnosis for this admission?: Yes Plan: Holding oral medications while admitted. Hemoglobin A1c 7.6% Patient is placed on a consistent carb diet. Accu-Cheks before meals and at bedtime with Humalog for sliding scale coverage. Hypoglycemia protocol in place. (9) Obesity (BMI 30.0-34.9) Is this a current diagnosis for this admission?: Yes Plan: BMI 34.3. Lifestyle modification dietary compliance are encouraged. Currently on a cardiac/consistent carb diet. - Time Time Spent with patient: 35 or more minutes Medications reviewed and adjusted accordingly: Yes Anticipated discharge: Home - Inpatient Certification Based on my medical assessment, after consideration of the patient's comorb idities, presenting symptoms, or acuity I expect that the services needed warrant INPATIENT care.: Yes I certify that my determination is in accordance with my understanding of Medicare's requirements for reasonable and necessary INPATIENT services [42 CFR 412.3e].: Yes Medical Necessity: Significant Comorbidiites Make Outpatient Treatment Too Risky, Need Close Monitoring Due to Risk of Patient Decompensation, Need for IV Antibiotics, Risk of Complication if Not Cared For in Hospital, Risk of Diagnosis Which Will Require Inpatient Eval/Care/Monitoring
[2019-06-04 12:30] LABS: C-REACTIVE PROTEIN 16.4 mg/L (<10.0)
[2019-06-04] MEDS ORDERED: AZITHROMYCIN 500 MG in DEXTROSE 5%-WATER 250 ML IV SCH (13:00)
[2019-06-04] MEDS: HEPARIN SOD (PORCINE) 5,000 UNIT/ML 1 ML VIAL SUBCUT SCH ×2 (17:18→22:04)
[2019-06-04] MEDS: INSULIN LISPRO 100 UNIT/ML 3 ML VIAL SUBCUT SCH ×2 (17:19→22:04)
[2019-06-04] MEDS: ALBUTEROL SULFATE HFA (90 MCG/PUFF) 200 PUFF/8.5 GM MDI IH SCH ×2 (18:18→18:39)
--- NOTE | 2019-06-04 21:24 | EKG REPORT ---
SEVERITY:- ABNORMAL ECG - SINUS TACHYCARDIA LVH WITH SECONDARY REPOLARIZATION ABNORMALITY PROLONGED QT INTERVAL : Confirmed by: Deonna Iniguez MD 04-Jun-2019 21:22:55
[2019-06-04] MEDS ORDERED: CEFEPIME 2 GM/D5W RTU 2 GM/50 ML RTUPB IV SCH (22:00)
[2019-06-04] MEDS: LINEZOLID 600 MG/300 ML RTUPB IV SCH (22:03)
[2019-06-04] MEDS: CEFEPIME HCL 2 GM in DEXTROSE 5%-WATER 50 ML IV SCH (22:03)
[2019-06-04] MEDS: GUAIFENESIN 600 MG TABLET.SA PO SCH (22:05)
[2019-06-05] MEDS: ALBUTEROL SULFATE HFA (90 MCG/PUFF) 200 PUFF/8.5 GM MDI IH SCH ×4 (01:13→17:10)
[2019-06-05] MEDS: HEPARIN SOD (PORCINE) 5,000 UNIT/ML 1 ML VIAL SUBCUT SCH ×3 (05:20→21:20)
[2019-06-05 06:29] LABS: HEMATOCRIT 26.7 % (37.9-51.0); HEMOGLOBIN 9.2 g/dL (13.5-17.0); MEAN CORPUSCULAR HEMOGLOBIN 30.4 pg (27.0-33.4); MEAN CORPUSCULAR HGB CONC 34.4 g/dL (32.0-36.0); MEAN CORPUSCULAR VOLUME 88 fl (80-97); PLATELET COUNT 295 10^3/uL (150-450); RED BLOOD COUNT 3.02 10^6/uL (4.35-5.55); RED CELL DISTRIBUTION WIDTH 15.6 % (11.5-14.0); WHITE BLOOD COUNT 10.7 10^3/uL (4.0-10.5)
[2019-06-05 06:56] LABS: ANION GAP 7 (5-19); BLOOD UREA NITROGEN 28 mg/dL (7-20); CALCIUM 8.2 mg/dL (8.4-10.2); CARBON DIOXIDE 25 mmol/L (22-30); CHLORIDE 102 mmol/L (98-107); GLUCOSE 153 mg/dL (75-110)
--- NOTE | 2019-06-05 08:18 | PDOC PROGRESS REPORT ---
Subjective Progress Note for:: 06/05/19 Subjective:: JARED HORVATH JR is a 58 year old male with history of heart failure with reduced ejection fraction, stage III-IV CKD, chronic lower extremity edema, dilated cardiomyopathy, moderate to severe pulmonary hypertension, essential hypertension, type 2 diabetes, alcohol abuse who is consulted to cardiology for further evaluation and management of heart failure. The patient was admitted to this facility 05/02/2019 through 05/08/2019 at which time he was intubated due to severe respiratory failure. He was diuresed appropriately and was discharged. Unfortunately, he now presents again to the emergency room with a few days of shortness of breath and frothy sputum. I evaluated him in the emergency room where he is found to be sitting up in the stretcher on BiPAP after EMS brought him in with a low oxygen saturation. He complains of shortness of breath but denies chest pain, diaphoresis, palpitations, syncope and presyncope. 06/05/19: The patient is now admitted to the isolation unit and awaiting results of coronavirus testing. He has no cardiovascular complaints today and specifically denies PND and orthopnea. He actually feels better, he is now only on nasal cannula and has diuresed almost 1.6 L with a bump in his creatinine. Physical exam on 06/05/2019: GENERAL: Pleasant, speaking in normal sentences. Oriented x3 with normal mood. No respiratory distress. Well developed. HEENT: Normocephalic, atraumatic. Pupils equal. Sclerae anicteric. Oropharynx moist. NECK: Difficult to evaluate for JVD due to his body habitus. No carotid bruits. LUNGS: Decreased breath sounds at both bases. On BiPAP. CARDIOVASCULAR: Regular rate and rhythm, normal S1 and S2 without murmurs, rubs, or gallops. PMI not displaced. EXTREMITIES: 2+ pitting edema bilaterally, no cyanosis, no clubbing. Difficult to palpate pulses due to his body habitus and lower extremity edema. MUSCULOSKELETAL: No chest tenderness to palpation. NEUROLOGIC: Nonfocal. No gross sensory or motor deficits bilateral upper or lower extremities. Cardiac studies: Echocardiogram on 05/04/2019 at [facility], [facility]: -Mild to moderate LVE. -Mild concentric LVH. -EF 40 to 45%. -Grade 1 diastolic dysfunction. -Global hypokinesis. -Mild biatrial enlargement. -Mild MAC without stenosis. -Trace MR, mild TR. -Moderate to severe pulmonary hypertension with pressures between 55 and 60 mmHg. Reason For Visit: CHF EXACERBATION,ACUTE ON CHRONIC DIASTOLIC Physical Exam Vital Signs: Temp Pulse Resp BP Pulse Ox 98.9 F 94 19 146/77 H 98 06/05/19 04:29 06/05/19 04:29 06/05/19 04:29 06/05/19 04:29 06/05/19 04:29 Intake & Output 06/04/19 06/05/19 06/06/19 06:59 06:59 06:59 Intake Total 1045 Output Total 2625 Balance -1580 Weight 117 kg Results Laboratory Results: 06/05/19 05:52 06/05/19 05:52 06/04/19 06/04/19 06/04/19 07:45 07:45 07:45 WBC 16.3 H RBC 3.57 L Hgb 10.9 L Hct 32.0 L MCV 90 MCH 30.4 MCHC 33.9 RDW 15.3 H Plt Count 420 Seg Neutrophils % 84.4 H VBG pH VBG pCO2 VBG HCO3 VBG Base Excess Sodium 137.3 Potassium 3.3 L Chloride 105 Carbon Dioxide 22 Anion Gap 10 BUN 23 H Creatinine 3.13 H Est GFR ( Amer) 25 L Glucose 214 H Calcium 8.8 Magnesium 1.5 L Ferritin Total Bilirubin 0.8 AST 24 Alkaline Phosphatase 118 C-Reactive Protein Total Protein 7.3 Albumin 3.3 L Urine Color Urine Appearance Urine pH Ur Specific [place] Urine Protein Urine Glucose (UA) Urine Ketones Urine Blood Urine Nitrite Ur Leukocyte Esterase Urine WBC (Auto) Urine RBC (Auto) Blood Type O POSITIVE Antibody Screen NEGATIVE 06/04/19 06/04/19 06/04/19 07:45 09:15 10:20 WBC RBC Hgb Hct MCV MCH MCHC RDW Plt Count Seg Neutrophils % VBG pH 7.39 VBG pCO2 41.0 VBG HCO3 24.2 VBG Base Excess -0.7 Sodium Potassium Chloride Carbon Dioxide Anion Gap BUN Creatinine Est GFR ( Amer) Glucose Calcium Magnesium Ferritin 304.00 Total Bilirubin AST Alkaline Phosphatase C-Reactive Protein 16.4 H Total Protein Albumin Urine Color STRAW Urine Appearance CLEAR Urine pH 7.0 Ur Specific [place] 1.009 Urine Protein >=500 H Urine Glucose (UA) 150 H Urine Ketones NEGATIVE Urine Blood SMALL H Urine Nitrite NEGATIVE Ur Leukocyte Esterase NEGATIVE Urine WBC (Auto) 1 Urine RBC (Auto) 11 Blood Type Antibody Screen 06/05/19 06/05/19 05:52 05:52 WBC 10.7 H RBC 3.02 L Hgb 9.2 L Hct 26.7 L MCV 88 MCH 30.4 MCHC 34.4 RDW 15.6 H Plt Count 295 Seg Neutrophils % VBG pH VBG pCO2 VBG HCO3 VBG Base Excess Sodium 134.1 L Potassium Chloride 102 Carbon Dioxide 25 Anion Gap 7 BUN 28 H Creatinine 3.27 H Est GFR ( Amer) 24 L Glucose 153 H Calcium 8.2 L Magnesium Ferritin Total Bilirubin AST Alkaline Phosphatase C-Reactive Protein Total Protein Albumin Urine Color Urine Appearance Urine pH Ur Specific [place] Urine Protein Urine Glucose (UA) Urine Ketones Urine Blood Urine Nitrite Ur Leukocyte Esterase Urine WBC (Auto) Urine RBC (Auto) Blood Type Antibody Screen 06/04/19 07:45 Troponin I 0.025 NT-Pro-B Natriuret Pep 3870 H Impressions: Chest X-Ray 06/04/19 07:41 IMPRESSION: MILD CARDIOMEGALY. BASILAR AIRSPACE DISEASE WITH SMALL PLEURAL EFFUSIONS. DIFFERENTIAL INCLUDES PULMONARY EDEMA AND/OR PNEUMONIA. 06/05/19 05:52 06/05/19 05:52 MCV 88 fl (80-97) 06/05/19 05:52 MCH 30.4 pg (27.0-33.4) 06/05/19 05:52 MCHC 34.4 g/dL (32.0-36.0) 06/05/19 05:52 RDW 15.6 % (11.5-14.0) H 06/05/19 05:52 Seg Neutrophils % 84.4 % (42-78) H 06/04/19 07:45 VBG pH 7.39 (7.30-7.42) 06/04/19 09:15 VBG pCO2 41.0 mmHg (35-63) 06/04/19 09:15 VBG HCO3 24.2 mmol/L (20-32) 06/04/19 09:15 VBG Base Excess -0.7 mmol/L 06/04/19 09:15 Chloride 102 mmol/L (98-107) 06/05/19 05:52 Carbon Dioxide 25 mmol/L (22-30) 06/05/19 05:52 Anion Gap 7 (5-19) 06/05/19 05:52 Est GFR ( Amer) 24 (>60) L 06/05/19 05:52 Glucose 153 mg/dL (75-110) H 06/05/19 05:52 Calcium 8.2 mg/dL (8.4-10.2) L 06/05/19 05:52 Magnesium 1.5 mg/dL (1.6-2.3) L 06/04/19 07:45 Ferritin 304.00 ng/mL (17.9-464.0) 06/04/19 07:45 Total Bilirubin 0.8 mg/dL (0.2-1.3) 06/04/19 07:45 AST 24 U/L (17-59) 06/04/19 07:45 Alkaline Phosphatase 118 U/L (38-126) 06/04/19 07:45 C-Reactive Protein 16.4 mg/L (<10.0) H 06/04/19 07:45 Total Protein 7.3 g/dL (6.3-8.2) 06/04/19 07:45 Albumin 3.3 g/dL (3.5-5.0) L 06/04/19 07:45 Urine Color STRAW 06/04/19 10:20 Urine Appearance CLEAR 06/04/19 10:20 Urine pH 7.0 (5.0-9.0) 06/04/19 10:20 Ur Specific [place] 1.009 06/04/19 10:20 Urine Protein >=500 mg/dL (NEGATIVE) H 06/04/19 10:20 Urine Glucose (UA) 150 mg/dL (NEGATIVE) H 06/04/19 10:20 Urine Ketones NEGATIVE mg/dL (NEGATIVE) 06/04/19 10:20 Urine Blood SMALL (NEGATIVE) H 06/04/19 10:20 Urine Nitrite NEGATIVE (NEGATIVE) 06/04/19 10:20 Ur Leukocyte Esterase NEGATIVE (NEGATIVE) 06/04/19 10:20 Urine WBC (Auto) 1 /HPF 06/04/19 10:20 Urine RBC (Auto) 11 /HPF 06/04/19 10:20 Blood Type O POSITIVE 06/04/19 07:45 Antibody Screen NEGATIVE 06/04/19 07:45 06/04/19 07:45 Troponin I 0.025 NT-Pro-B Natriuret Pep 3870 H Current Medication List Generic Name Dose Route Start Last Admin Trade Name Freq PRN Reason Stop Dose Admin Acetaminophen 650 mg 06/04/19 11:13 Tylenol 325 Mg Tablet PO 07/04/19 11:12 Q4HP PRN pain or temp greater than 101F Albuterol 2 puff 06/04/19 11:30 06/05/19 05:20 Proair Hfa Inhalation Aerosol 8.5 Gm Mdi IH 07/04/19 11:29 2 spr Q6 CATHY Administration Albuterol 2 puff 06/04/19 11:30 Proair Hfa Inhalation Aerosol 8.5 Gm Mdi IH 07/04/19 11:29 Q4HP PRN WHEEZING Dextrose 12.5 gm 06/04/19 11:22 Dextrose Inj 50% Syringe (25 Gm/50 Ml) IV 07/04/19 11:21 PRN PRN FOR BG 50-69 IN ALERT PATIENT Protocol Dextrose 25 gm 06/04/19 11:22 Dextrose Inj 50% Syringe (25 Gm/50 Ml) IV 07/04/19 11:21 PRN PRN PER PROTOCOL Protocol Glucagon 1 mg 06/04/19 11:22 Glucagen Inj 1 Mg Vial IM 07/04/19 11:21 PRN PRN Evaluate for BG < 70 Protocol Glucose 15 gm 06/04/19 11:22 Glutose 40% Gel 15 Gm Tube PO 07/04/19 11:21 PRN PRN FOR BG 50-69 IN ALERT PATIENT Protocol Glucose 30 gm 06/04/19 11:22 Glutose 40% Gel 15 Gm Tube PO 07/04/19 11:21 PRN PRN FOR BG < 50 IN ALERT PATIENT Protocol Guaifenesin 600 mg 06/04/19 22:00 06/04/19 22:05 Mucinex Sr 600 Mg Tablet.Sa PO 07/04/19 21:59 600 mg Q12 CATHY Administration Guaifenesin 200 mg 06/04/19 11:13 Robitussin Syrup 200 Mg/10 Ml Ud Cup PO 07/04/19 11:12 Q4HP PRN COUGH Heparin Sodium (Porcine) 5,000 unit 06/04/19 14:00 06/05/19 05:20 Heparin Inj 5,000 Units/Ml 1 Ml Vial SUBCUT 07/04/19 13:59 5,000 unit Q8 CATHY Administration Linezolid 600 mg in 300 mls @ 300 mls/hr 06/04/19 22:00 06/04/19 22:03 Zyvox Rtu 600 Mg/300 Ml Premixed IV 06/11/19 21:59 300 mls/hr Q12 CATHY 300 mls/hr Administration Cefepime HCl 2 gm/ Dextrose 50 mls @ 100 mls/hr 06/04/19 22:00 06/04/19 22:03 IV 06/11/19 21:59 100 mls/hr Q12 CATHY 100 mls/hr Administration Insulin Human Lispro 0 - 12 unit 06/04/19 16:00 06/04/19 22:04 Humalog Insulin 100 Unit/1 Ml 3 Ml Vial SUBCUT 07/04/19 15:59 2 unit ACHS CATHY Administration Protocol Sodium Chloride 2.5 ml 06/04/19 14:00 06/05/19 05:21 Saline Flush 2.5 Ml Monoject Prefil Syrin IV 07/04/19 13:59 2.5 ml Q8 CATHY Administration Discontinued Medications Generic Name Dose Route Start Last Admin Trade Name Robbyq PRN Reason Stop Dose Admin Aspirin 162 mg 06/04/19 07:40 06/04/19 07:46 Aspirin 81 Mg Chewable Tablet PO 06/04/19 07:41 162 mg NOW ONE Administration Captopril 6.25 mg 06/04/19 07:40 06/04/19 07:54 Capoten 12.5 Mg Tablet PO 06/04/19 07:41 6.25 mg NOW ONE Administration Furosemide 80 mg 06/04/19 07:40 06/04/19 07:46 Lasix Inj/Pf 100 Mg/10 Ml Sdv IV 06/04/19 07:41 80 mg NOW ONE Administration Magnesium Sulfate/Dextrose 1 gm in 100 mls @ 100 mls/hr 06/04/19 08:41 06/04/19 10:04 Magnesium Sulfate Rtu-D5w 1 Gm/100 Ml Premix IV 06/04/19 09:40 Infused NOW ONE Infusion Ceftriaxone Sodium/Dextrose 1 gm in 50 mls @ 100 mls/hr 06/04/19 12:00 Rocephin Rtu 1 Gm/D5w 50 Ml Premix IV 06/11/19 11:59 NOON CATHY Azithromycin 500 mg/ Dextrose 250 mls @ 250 mls/hr 06/04/19 13:00 IV 06/11/19 12:59 DAILY@1300 CATHY Cefepime HCl 2 gm in 50 mls @ 100 mls/hr 06/04/19 22:00 Maxipime Rtu 2 Gm-D5w 50 Ml Premix Bag IV 06/11/19 21:59 Q12 CATHY Morphine Sulfate 2 mg 06/04/19 07:56 06/04/19 08:02 Morphine 10 Mg/Ml Inj IV 06/04/19 07:57 2 mg NOW ONE Administration Nitroglycerin 1 gm 06/04/19 07:39 06/04/19 07:47 Nitrol 2% Ointment 1gm Packet TP 06/04/19 07:40 1 gm NOW ONE Administration Ondansetron HCl Confirm 06/04/19 07:48 06/04/19 07:56 Zofran Inj/Pf 4 Mg/2 Ml Sdv Administered 06/04/19 07:49 4 mg Dose Administration 4 mg .ROUTE .STK-MED ONE Ondansetron HCl 4 mg 06/04/19 07:56 06/04/19 08:46 Zofran Inj/Pf 4 Mg/2 Ml Sdv IV 06/04/19 07:57 Not Given NOW ONE Assessment & Plan - Diagnosis (1) Acute on chronic heart failure with reduced ejection fraction and diastolic dysfunction Is this a current diagnosis for this admission?: Yes Plan: The patient is much improved today after diuresing appropriately. He is only on nasal cannula and without heart failure symptoms. Recommendations: -Continue with current medical management. -Restrict fluid intake to 1500 cc daily. -Daily weights and chart. -Strict intake and output. -Low-sodium diet. -Replace electrolytes as needed. -We will sign off from the case at this point. Please feel free to call [phone] with questions or concerns. (2) Chronic kidney disease, stage III (moderate) Is this a current diagnosis for this admission?: Yes Plan: His renal function continues to to be stable despite a marginal increase in his creatinine after diuresis. Recommendations: -Continue with diuresis. -Consider nephrology consult at your discretion. (3) ETOH abuse Plan: The patient is not exhibiting any obvious signs of withdrawal at this point. Recommendations: -Continue to monitor for withdrawal symptoms. (4) Hypertension Qualifiers: Hypertension type: essential hypertension Qualified Code(s): I10 - Essential (primary) hypertension Is this a current diagnosis for this admission?: Yes Plan: His blood pressure is improved however not at goal of 130/80 or below. Recommendations: -I will defer further management to primary team. -We will sign off the case for now. (5) Type 2 diabetes mellitus Qualifiers: Diabetes mellitus buttermaker continuous churn insulin use: without longterm use Diabetes mellitus complication status: with kidney complications Diabetes mellitus complication detail: with chronic kidney disease Chronic kidney disease stage: stage 3 (moderate) Qualified Code(s): E11.22 - Type 2 diabetes mellitus with diabetic chronic kidney disease; N18.3 - Chronic kidney disease, stage 3 (moderate) Is this a current diagnosis for this admission?: Yes Plan: I will defer further management to his primary team.
[2019-06-05] MEDS: INSULIN LISPRO 100 UNIT/ML 3 ML VIAL SUBCUT SCH ×4 (09:11→21:20)
[2019-06-05] MEDS: GUAIFENESIN 600 MG TABLET.SA PO SCH ×2 (09:12→21:20)
[2019-06-05] MEDS: CEFEPIME HCL 2 GM in DEXTROSE 5%-WATER 50 ML IV SCH ×2 (09:13→21:23)
[2019-06-05 09:37] LABS: POTASSIUM 4.3 mmol/L (3.6-5.0)
[2019-06-05] MEDS: LINEZOLID 600 MG/300 ML RTUPB IV SCH ×2 (10:58→22:30)
[2019-06-05] MEDS: ASPIRIN 81 MG TABLET, ENT COATED PO SCH (12:03)
[2019-06-05] MEDS: AMLODIPINE BESYLATE 10 MG TABLET PO SCH (12:03)
[2019-06-05] MEDS: METOPROLOL SUCCINATE 25 MG TAB.SR.24H PO SCH (12:04)
--- NOTE | 2019-06-05 12:30 | PDOC PROGRESS REPORT ---
Subjective Progress Note for:: 06/05/19 Subjective:: JARED HORVATH JR is a 58 year old male, well-known to the hospital service, with a past medical history significant for CKD 3, [id number] diabetes mellitus, hypertension, chronic systolic CHF (LVEF 40%), pulmonary hypertension, hyperlipidemia, COPD (not on home O2 dependent) arthritis and obesity who was admitted 06/04/2019 with acute respiratory failure with hypoxia secondary to healthcare associated pneumonia, acute CHF exacerbation, and suspected Kovic virus infection. Patient was seen on morning rounds. He was found sitting up to the recliner, comfortably, on supplemental oxygen via nasal cannula at 4 L/min. He reports that he is feeling much better today. He is continuing to have jesus hemoptysis, though notes that this is decreased in frequency and amount. He has not had true sputum production. He denies chest pain, palpitations, abdominal pain, nausea vomiting and diarrhea. He requests to have Diaz catheter removed. Otherwise he has no new questions or concerns today. Nursing has noted chronic diabetic foot wounds but otherwise have no specific concerns. Reason For Visit: CHF EXACERBATION,ACUTE ON CHRONIC DIASTOLIC Physical Exam Vital Signs: Temp Pulse Resp BP Pulse Ox 98.6 F 91 24 H 145/80 H 100 06/05/19 08:51 06/05/19 08:51 06/05/19 08:51 06/05/19 08:51 06/05/19 08:51 Intake & Output 06/04/19 06/05/19 06/06/19 06:59 06:59 06:59 Intake Total 1045 400 Output Total 2625 Balance -1580 400 Weight 117 kg 117 kg General appearance: PRESENT: no acute distress, cooperative, obese, well- developed, well-nourished Head exam: PRESENT: atraumatic, normocephalic Eye exam: PRESENT: conjunctiva pink, EOMI, PERRLA. ABSENT: scleral icterus Mouth exam: PRESENT: moist, tongue midline Respiratory exam: PRESENT: rhonchi - Bilateral bases, symmetrical, unlabored, other - Supplemental oxygen via nasal cannula at 4 L/min. ABSENT: rales, wheezes Cardiovascular exam: PRESENT: RRR, +S1, +S2, systolic murmur. ABSENT: diastolic murmur, rubs Pulses: PRESENT: +1 pedal pulses bilateral Vascular exam: PRESENT: normal capillary refill GI/Abdominal exam: PRESENT: normal bowel sounds, soft. ABSENT: distended, guarding, mass, organolmegaly, rebound, tenderness Rectal exam: PRESENT: deferred Gentrourinary exam: PRESENT: indwelling catheter Extremities exam: PRESENT: full ROM, +1 edema - BLE, other - Chronic lymphedema; history of multiple toe amputations to left foot. ABSENT: calf tenderness, clu bbing, pedal edema Musculoskeletal exam: PRESENT: ambulatory Neurological exam: PRESENT: alert, awake, oriented to person, oriented to place, oriented to time, oriented to situation, CN II-XII grossly intact. ABSENT: motor sensory deficit Psychiatric exam: PRESENT: appropriate affect, normal mood. ABSENT: homicidal ideation, suicidal ideation Skin exam: PRESENT: dry, warm, other - Diabetic foot wound to the lateral aspect of the left plantar surface. 0.5 cm round, no drainage or erythema. ABSENT: cyanosis, rash Results Laboratory Results: 06/05/19 05:52 06/05/19 05:52 06/04/19 06/05/19 06/05/19 07:45 05:52 05:52 WBC 10.7 H RBC 3.02 L Hgb 9.2 L Hct 26.7 L MCV 88 MCH 30.4 MCHC 34.4 RDW 15.6 H Plt Count 295 Sodium 134.1 L Potassium 4.3 D Chloride 102 Carbon Dioxide 25 Anion Gap 7 BUN 28 H Creatinine 3.27 H Est GFR ( Amer) 24 L Glucose 153 H Calcium 8.2 L Ferritin 304.00 C-Reactive Protein 16.4 H 06/04/19 07:45 Troponin I 0.025 NT-Pro-B Natriuret Pep 3870 H Impressions: Chest X-Ray 06/04/19 07:41 IMPRESSION: MILD CARDIOMEGALY. BASILAR AIRSPACE DISEASE WITH SMALL PLEURAL EFFUSIONS. DIFFERENTIAL INCLUDES PULMONARY EDEMA AND/OR PNEUMONIA. Assessment and Plan - Diagnosis (1) Pneumonia Qualifiers: Pneumonia type: due to unspecified organism Laterality: bilateral Lung location: lower lobe of lung Qualified Code(s): J18.9 - Pneumonia, unspecified organism Is this a current diagnosis for this admission?: Yes Plan: Improved; now maintaining oxygen saturations on supplemental oxygen via nasal cannula. Afebrile overnight, leukocytosis trending down. Continues to have jesus, persist. Patient was admitted with low-grade fever, leukocytosis, and bilateral lower infiltrates on chest x-ray. Blood cultures are pending. Sputum cultures not yet obtained. He is admitted to [facility] on continuous cardiac telemetry. He is empirically placed on IV cefepime and linezolid (avoiding vancomycin secondary to CKD 3) for treatment of healthcare associated pneumonia. Day #2 We will provide supplemental oxygen as needed to maintain saturations greater than 89%. We will provide scheduled and as needed albuterol HFA. Twice daily Mucinex, Robitussin as needed. Aggressive pulmonary toilet with incentive spirometer, flutter valve, and early ambulation. (2) Acute on chronic heart failure with reduced ejection fraction and diastolic dysfunction Is this a current diagnosis for this admission?: Yes Plan: Exacerbation has resolved. Patient has rhonchi on exam, peripheral edema is near his baseline. Patient weight is actually 1 kg lower than his day of discharge last month and proBNP is also decreased from last evaluation. Received one-time dose of IV furosemide by the ED provider. Cardiology is consulted; appreciate Dr. Merrill's evaluation recommendations. Dr. Merrill has since signed off. Continuing home dose amlodipine, metoprolol, aspirin and statin. Continue home dose torsemide Cardiac diet, fluid restricted to 1.5 L daily. Daily weights, strict I&O's. (3) Suspected COVID-19 virus infection Is this a current diagnosis for this admission?: Yes Plan: Pt w/ sudden onset of dyspnea, hypoxia, hemoptysis with fever, leukocytosis, and bilateral infiltrates on CXR. COVID 19 testing pending. Baseline ferritin 304, CRP 16.4, and d-dimer 1.66 Droplet and contact precautions. Avoid nebulizer treatments, high flow nasal cannula, and BiPAP as able. Remaining management as above. (4) Hemoptysis Is this a current diagnosis for this admission?: Yes Plan: Secondary to #1-3 Supportive care. (5) Acute respiratory failure with hypoxia Is this a current diagnosis for this admission?: Yes Plan: Secondary to #1-4 Evaluation and management as above. (6) Chronic kidney disease, stage III (moderate) Is this a current diagnosis for this admission?: Yes Plan: Stable and at baseline creatinine. Avoid nephrotoxic medications and dosing as able. Follow-up chemistry. (7) Hypertension Qualifiers: Hypertension type: essential hypertension Qualified Code(s): I10 - Essential (primary) hypertension Is this a current diagnosis for this admission?: Yes Plan: Continue home medications as above. Currently holding home dose valsartan due to well-controlled blood pressures. Consider resuming when blood pressure dictates or starting lower dose therapy. Cardiac diet. (8) Type 2 diabetes mellitus Qualifiers: Diabetes mellitus continuous churn buttermaker insulin use: without jail use Diabetes mellitus complication status: with kidney complications Diabetes mellitus complication detail: with chronic kidney disease Chronic kidney disease stage: stage 3 (moderate) Qualified Code(s): E11.22 - Type 2 diabetes mellitus with diabetic chronic kidney disease; N18.3 - Chronic kidney disease, stage 3 (moderate) Is this a current diagnosis for this admission?: Yes Plan: Holding oral medications while admitted. Hemoglobin A1c 7.6% Patient is placed on a consistent carb diet. Accu-Cheks before meals and at bedtime with Humalog for sliding scale coverage. Hypoglycemia protocol in place. (9) Obesity (BMI 30.0-34.9) Is this a current diagnosis for this admission?: Yes Plan: BMI 34.3. Lifestyle modification dietary compliance are encouraged. Currently on a cardiac/consistent carb diet. - Time Time Spent with patient: 25-34 minutes Medications reviewed and adjusted accordingly: Yes Anticipated discharge: Home with Homehealth
[2019-06-05] MEDS: TORSEMIDE 20 MG TABLET PO SCH (17:12)
[2019-06-05] MEDS: ATORVASTATIN CALCIUM 40 MG TABLET PO SCH (21:20)
[2019-06-05] MEDS: MELATONIN 3 MG TABLET PO SCH (21:20)
[2019-06-05] MEDS ORDERED: ENOXAPARIN SODIUM INJ 120 MG/0.8 ML DISP.SYRIN SUBCUT SCH (22:00)
[2019-06-05] MEDS ORDERED: LINEZOLID 600 MG/300 ML RTUPB IV ONE (22:13)
[2019-06-06] MEDS: ALBUTEROL SULFATE HFA (90 MCG/PUFF) 200 PUFF/8.5 GM MDI IH SCH ×4 (02:22→17:05)
[2019-06-06 05:23] LABS: HEMATOCRIT 24.7 % (37.9-51.0); HEMOGLOBIN 8.5 g/dL (13.5-17.0); MEAN CORPUSCULAR HEMOGLOBIN 30.4 pg (27.0-33.4); MEAN CORPUSCULAR HGB CONC 34.3 g/dL (32.0-36.0); MEAN CORPUSCULAR VOLUME 89 fl (80-97); PLATELET COUNT 262 10^3/uL (150-450); RED BLOOD COUNT 2.78 10^6/uL (4.35-5.55); RED CELL DISTRIBUTION WIDTH 15.4 % (11.5-14.0); WHITE BLOOD COUNT 8.6 10^3/uL (4.0-10.5)
[2019-06-06 05:42] LABS: ANION GAP 7 (5-19); BLOOD UREA NITROGEN 33 mg/dL (7-20); CALCIUM 8.4 mg/dL (8.4-10.2); CARBON DIOXIDE 24 mmol/L (22-30); CHLORIDE 103 mmol/L (98-107); GLUCOSE 167 mg/dL (75-110); POTASSIUM 4.1 mmol/L (3.6-5.0)
[2019-06-06] MEDS: HEPARIN SOD (PORCINE) 5,000 UNIT/ML 1 ML VIAL SUBCUT SCH ×3 (05:42→21:07)
[2019-06-06] MEDS: INSULIN LISPRO 100 UNIT/ML 3 ML VIAL SUBCUT SCH ×4 (08:01→21:10)
[2019-06-06] MEDS: CEFEPIME HCL 2 GM in DEXTROSE 5%-WATER 50 ML IV SCH ×2 (09:35→21:08)
[2019-06-06] MEDS: ASPIRIN 81 MG TABLET, ENT COATED PO SCH (09:35)
[2019-06-06] MEDS: AMLODIPINE BESYLATE 10 MG TABLET PO SCH (09:35)
[2019-06-06] MEDS: GUAIFENESIN 600 MG TABLET.SA PO SCH ×2 (09:35→21:08)
[2019-06-06] MEDS: ASCORBIC ACID 500 MG TABLET PO SCH ×2 (09:35→17:05)
[2019-06-06] MEDS: METOPROLOL SUCCINATE 25 MG TAB.SR.24H PO SCH (09:35)
[2019-06-06] MEDS: TORSEMIDE 20 MG TABLET PO SCH ×2 (09:35→17:05)
[2019-06-06] MEDS: ZINC SULFATE 220 MG CAPSULE PO SCH (09:36)
[2019-06-06] MEDS: CHOLECALCIFEROL (D3) 1,000 UNIT (25 MCG) TABLET PO SCH (09:36)
[2019-06-06] MEDS ORDERED: ZINC SULFATE 220 MG CAPSULE PO SCH (10:00)
[2019-06-06] MEDS: LINEZOLID 600 MG/300 ML RTUPB IV SCH ×2 (11:24→21:08)
--- NOTE | 2019-06-06 15:40 | PDOC PROGRESS REPORT ---
Subjective Progress Note for:: 06/06/19 Subjective:: JARED HORVATH JR is a 58 year old male, well-known to the hospital service, with a past medical history significant for CKD 3, [id number] diabetes mellitus, hypertension, chronic systolic CHF (LVEF 40%), pulmonary hypertension, hyperlipidemia, COPD (not on home O2 dependent) arthritis and obesity who was admitted 06/04/2019 with acute respiratory failure with hypoxia secondary to healthcare associated pneumonia, acute CHF exacerbation, and suspected COVID virus infection. Patient was seen on morning rounds. He was found sitting up to the recliner, comfortably, on supplemental oxygen via nasal cannula at 2 L/min. He reports that he is feeling well today. No further episodes of hemoptysis. He reports decreased dyspnea and cough. BLE edema is also improved. He denies chest pain, palpitations, abdominal pain, nausea vomiting and diarrhea. He has no new questions or concerns today. No concerns per nursing. Reason For Visit: CHF EXACERBATION,ACUTE ON CHRONIC DIASTOLIC Physical Exam Vital Signs: Temp Pulse Resp BP Pulse Ox 98.5 F 88 17 149/80 H 100 06/06/19 11:33 06/06/19 14:00 06/06/19 11:33 06/06/19 11:33 06/06/19 11:33 Intake & Output 06/05/19 06/06/19 06/07/19 06:59 06:59 06:59 Intake Total 1045 2050 590 Output Total 2625 830 350 Balance -1580 1220 240 Weight 117 kg 117 kg 119.8 kg General appearance: PRESENT: no acute distress, cooperative, obese, well- developed, well-nourished Head exam: PRESENT: atraumatic, normocephalic Eye exam: PRESENT: conjunctiva pink, EOMI, PERRLA. ABSENT: scleral icterus Mouth exam: PRESENT: moist, tongue midline Respiratory exam: PRESENT: rhonchi - slight, symmetrical, unlabored, other - Supplemental oxygen via nasal cannula at 1 L/min. ABSENT: rales, wheezes Cardiovascular exam: PRESENT: RRR, +S1, +S2, systolic murmur. ABSENT: diastolic murmur, rubs Vascular exam: PRESENT: normal capillary refill Extremities exam: PRESENT: full ROM, other - Chronic BLE lymphedema; Connor wraps in place.. ABSENT: calf tenderness, clubbing, pedal edema Musculoskeletal exam: PRESENT: ambulatory Neurological exam: PRESENT: alert, awake, oriented to person, oriented to place, oriented to time, oriented to situation, CN II-XII grossly intact. ABSENT: motor sensory deficit Psychiatric exam: PRESENT: appropriate affect, normal mood. ABSENT: homicidal ideation, suicidal ideation Skin exam: PRESENT: dry, warm. ABSENT: cyanosis, rash Results Laboratory Results: 06/06/19 04:53 06/06/19 04:53 06/06/19 06/06/19 04:53 04:53 WBC 8.6 RBC 2.78 L Hgb 8.5 L Hct 24.7 L MCV 89 MCH 30.4 MCHC 34.3 RDW 15.4 H Plt Count 262 Sodium 133.8 L Potassium 4.1 Chloride 103 Carbon Dioxide 24 Anion Gap 7 BUN 33 H Creatinine 3.36 H Est GFR ( Amer) 23 L Glucose 167 H Calcium 8.4 06/04/19 07:45 Troponin I 0.025 NT-Pro-B Natriuret Pep 3870 H Impressions: Chest X-Ray 06/04/19 07:41 IMPRESSION: MILD CARDIOMEGALY. BASILAR AIRSPACE DISEASE WITH SMALL PLEURAL EFFUSIONS. DIFFERENTIAL INCLUDES PULMONARY EDEMA AND/OR PNEUMONIA. Assessment and Plan - Diagnosis (1) Pneumonia Qualifiers: Pneumonia type: due to unspecified organism Laterality: bilateral Lung location: lower lobe of lung Qualified Code(s): J18.9 - Pneumonia, unspecified organism Is this a current diagnosis for this admission?: Yes Plan: Improved; now maintaining oxygen saturations on supplemental oxygen via nasal cannula. Afebrile x48 hrs, leukocytosis resolved. Patient was admitted with low-grade fever, leukocytosis, and bilateral lower infiltrates on chest x-ray. Blood cultures are NTD Sputum cultures not yet obtained. He is admitted to [facility] on continuous cardiac telemetry. He is empirically placed on IV cefepime and linezolid (avoiding vancomycin secondary to CKD 3) for treatment of healthcare associated pneumonia. Day #3 We will provide supplemental oxygen as needed to maintain saturations greater than 89%. We will provide scheduled and as needed albuterol HFA. Twice daily Mucinex, Robitussin as needed. Aggressive pulmonary toilet with incentive spirometer, flutter valve, and early ambulation. (2) Acute on chronic heart failure with reduced ejection fraction and diastolic dysfunction Is this a current diagnosis for this admission?: Yes Plan: Exacerbation has resolved. Patient has rhonchi on exam, peripheral edema is near his baseline. Patient weight is actually 1 kg lower than his day of discharge last month and proBNP is also decreased from last evaluation. Received one-time dose of IV furosemide by the ED provider. Cardiology is consulted; appreciate Dr. Merrill's evaluation recommendations. Dr. Merrill has since signed off. Continuing home dose amlodipine, metoprolol, aspirin and statin. Will increase Torsemide as patient is receiving IVF w/ abx. Cardiac diet, fluid restricted to 1.5 L daily. Daily weights, strict I&O's. (3) Suspected COVID-19 virus infection Is this a current diagnosis for this admission?: Yes Plan: Pt w/ sudden onset of dyspnea, hypoxia, hemoptysis with fever, leukocytosis, and bilateral infiltrates on CXR. COVID 19 testing pending. Baseline ferritin 304, CRP 16.4, and d-dimer 1.66 Droplet and contact precautions. Avoid nebulizer treatments, high flow nasal cannula, and BiPAP as able. Start vitamin D, vitamin C, zinc and melatonin supplementation. Remaining management as above. (4) Hemoptysis Is this a current diagnosis for this admission?: Yes Plan: Resolved. Secondary to #1-3 Supportive care. (5) Acute respiratory failure with hypoxia Is this a current diagnosis for this admission?: Yes Plan: Secondary to #1-4 Evaluation and management as above. (6) Chronic kidney disease, stage III (moderate) Is this a current diagnosis for this admission?: Yes Plan: Stable and at baseline creatinine. Avoid nephrotoxic medications and dosing as able. Follow-up chemistry. (7) Hypertension Qualifiers: Hypertension type: essential hypertension Qualified Code(s): I10 - Essential (primary) hypertension Is this a current diagnosis for this admission?: Yes Plan: Continue home medications as above. Currently holding home dose valsartan due to well-controlled blood pressures. Consider resuming when blood pressure dictates or starting lower dose therapy. Cardiac diet. (8) Type 2 diabetes mellitus Qualifiers: Diabetes mellitus mcc insulin use: without mcc use Diabetes mellitus complication status: with kidney complications Diabetes mellitus complication detail: with chronic kidney disease Chronic kidney disease stage: stage 3 (moderate) Qualified Code(s): E11.22 - Type 2 diabetes mellitus with diabetic chronic kidney disease; N18.3 - Chronic kidney disease, stage 3 (moderate) Is this a current diagnosis for this admission?: Yes Plan: Holding oral medications while admitted. Hemoglobin A1c 7.6% Patient is placed on a consistent carb diet. Accu-Cheks before meals and at bedtime with Humalog for sliding scale coverage. Hypoglycemia protocol in place. (9) Obesity (BMI 30.0-34.9) Is this a current diagnosis for this admission?: Yes Plan: BMI 34.3. Lifestyle modification dietary compliance are encouraged. Currently on a cardiac/consistent carb diet.
[2019-06-06] MEDS: ATORVASTATIN CALCIUM 40 MG TABLET PO SCH (21:07)
[2019-06-06] MEDS: MELATONIN 3 MG TABLET PO SCH (21:08)
[2019-06-07] MEDS: ALBUTEROL SULFATE HFA (90 MCG/PUFF) 200 PUFF/8.5 GM MDI IH SCH ×5 (00:13→23:53)
[2019-06-07] MEDS: HEPARIN SOD (PORCINE) 5,000 UNIT/ML 1 ML VIAL SUBCUT SCH ×3 (05:21→21:44)
[2019-06-07 05:46] LABS: HEMATOCRIT 27.5 % (37.9-51.0); HEMOGLOBIN 9.4 g/dL (13.5-17.0); MEAN CORPUSCULAR HEMOGLOBIN 30.3 pg (27.0-33.4); MEAN CORPUSCULAR HGB CONC 34.4 g/dL (32.0-36.0); MEAN CORPUSCULAR VOLUME 88 fl (80-97); PLATELET COUNT 317 10^3/uL (150-450); RED BLOOD COUNT 3.12 10^6/uL (4.35-5.55); WHITE BLOOD COUNT 7.9 10^3/uL (4.0-10.5)
[2019-06-07 06:01] LABS: ANION GAP 9 (5-19); BLOOD UREA NITROGEN 30 mg/dL (7-20); CALCIUM 8.8 mg/dL (8.4-10.2); CARBON DIOXIDE 22 mmol/L (22-30); CHLORIDE 103 mmol/L (98-107); GLUCOSE 148 mg/dL (75-110); POTASSIUM 4.3 mmol/L (3.6-5.0)
[2019-06-07] MEDS: INSULIN LISPRO 100 UNIT/ML 3 ML VIAL SUBCUT SCH ×4 (07:57→21:43)
[2019-06-07] MEDS: CEFEPIME HCL 2 GM in DEXTROSE 5%-WATER 50 ML IV SCH (10:05)
[2019-06-07] MEDS: ZINC SULFATE 220 MG CAPSULE PO SCH (10:05)
[2019-06-07] MEDS: ASPIRIN 81 MG TABLET, ENT COATED PO SCH (10:06)
[2019-06-07] MEDS: AMLODIPINE BESYLATE 10 MG TABLET PO SCH (10:06)
[2019-06-07] MEDS: GUAIFENESIN 600 MG TABLET.SA PO SCH ×2 (10:06→21:43)
[2019-06-07] MEDS: ASCORBIC ACID 500 MG TABLET PO SCH ×2 (10:06→17:12)
[2019-06-07] MEDS: METOPROLOL SUCCINATE 25 MG TAB.SR.24H PO SCH (10:07)
[2019-06-07] MEDS: CHOLECALCIFEROL (D3) 1,000 UNIT (25 MCG) TABLET PO SCH (10:07)
[2019-06-07] MEDS: TORSEMIDE 20 MG TABLET PO SCH ×2 (10:07→17:12)
[2019-06-07] MEDS: LINEZOLID 600 MG/300 ML RTUPB IV SCH (12:00)
--- NOTE | 2019-06-07 12:20 | PDOC PROGRESS REPORT ---
Subjective Progress Note for:: 06/07/19 Subjective:: JARED HORVATH JR is a 58 year old male, well-known to the hospital service, with a past medical history significant for CKD 3, [id number] diabetes mellitus, hypertension, chronic systolic CHF (LVEF 40%), pulmonary hypertension, hyperlipidemia, COPD (not on home O2 dependent) arthritis and obesity who was admitted 06/04/2019 with acute respiratory failure with hypoxia secondary to healthcare associated pneumonia, acute CHF exacerbation, and suspected COVID virus infection. Patient was seen on afternoon rounds. He was found sitting up to the recliner, comfortably, on room air. He reports that he is feeling well today. No further episodes of hemoptysis. He reports decreased dyspnea and cough. BLE edema is also improved. Overall, he is feeling well He denies chest pain, palpitations, abdominal pain, nausea vomiting and diarrhea. He has no new questions or concerns today. No concerns per nursing. Reason For Visit: CHF EXACERBATION,ACUTE ON CHRONIC DIASTOLIC Physical Exam Vital Signs: Temp Pulse Resp BP Pulse Ox 98.3 F 92 17 159/79 H 97 06/07/19 07:43 06/07/19 07:43 06/07/19 07:43 06/07/19 07:43 06/07/19 07:43 Intake & Output 06/06/19 06/07/19 06/08/19 06:59 06:59 06:59 Intake Total 2049 1700 50 Output Total 830 2075 Balance 1220 -375 50 Weight 117 kg 119.8 kg General appearance: PRESENT: no acute distress, cooperative, obese, well- developed, well-nourished Head exam: PRESENT: atraumatic, normocephalic Eye exam: PRESENT: conjunctiva pink, EOMI, PERRLA. ABSENT: scleral icterus Mouth exam: PRESENT: moist, tongue midline Respiratory exam: PRESENT: clear to auscultation liseth, symmetrical, unlabored, other - room air. ABSENT: rales, rhonchi, wheezes Cardiovascular exam: PRESENT: RRR, +S1, +S2, systolic murmur. ABSENT: diastolic murmur, rubs Vascular exam: PRESENT: normal capillary refill Extremities exam: PRESENT: full ROM, +1 edema, other - Chronic BLE lymphedema; Connor wraps in place. ABSENT: calf tenderness, clubbing, pedal edema Musculoskeletal exam: PRESENT: ambulatory Neurological exam: PRESENT: alert, awake, oriented to person, oriented to place, oriented to time, oriented to situation, CN II-XII grossly intact. ABSENT: motor sensory deficit Psychiatric exam: PRESENT: appropriate affect, normal mood. ABSENT: homicidal ideation, suicidal ideation Skin exam: PRESENT: dry, intact, warm. ABSENT: cyanosis, rash Results Laboratory Results: 06/07/19 05:23 06/07/19 05:23 06/07/19 06/07/19 05:23 05:23 WBC 7.9 RBC 3.12 L Hgb 9.4 L Hct 27.5 L MCV 88 MCH 30.3 MCHC 34.4 RDW 15.0 H Plt Count 317 Sodium 134.4 L Potassium 4.3 Chloride 103 Carbon Dioxide 22 Anion Gap 9 BUN 30 H Creatinine 3.42 H Est GFR ( Amer) 22 L Glucose 148 H Calcium 8.8 06/04/19 07:45 Troponin I 0.025 NT-Pro-B Natriuret Pep 3870 H Impressions: Chest X-Ray 06/04/19 07:41 IMPRESSION: MILD CARDIOMEGALY. BASILAR AIRSPACE DISEASE WITH SMALL PLEURAL EFFUSIONS. DIFFERENTIAL INCLUDES PULMONARY EDEMA AND/OR PNEUMONIA. Assessment and Plan - Diagnosis (1) Pneumonia Qualifiers: Pneumonia type: due to unspecified organism Laterality: bilateral Lung location: lower lobe of lung Qualified Code(s): J18.9 - Pneumonia, unspecified organism Is this a current diagnosis for this admission?: Yes Plan: Improved; now maintaining oxygen saturations on room. Afebrile >48 hrs, leukocytosis resolved. Patient was admitted with low-grade fever, leukocytosis, and bilateral lower infiltrates on chest x-ray. Blood cultures are NTD Sputum cultures not yet obtained. COVID19 negative. He is admitted to [facility] on continuous cardiac telemetry. He is empirically placed on IV cefepime and linezolid (avoiding vancomycin secondary to CKD 3) for treatment of healthcare associated pneumonia. Day #4. Will plan to transition to oral abx tomorrow once BCx are negative at 72 h. We will provide supplemental oxygen as needed to maintain saturations greater than 89%. We will provide scheduled and as needed albuterol HFA. Twice daily Mucinex, Robitussin as needed. Aggressive pulmonary toilet with incentive spirometer, flutter valve, and early ambulation. (2) Acute on chronic heart failure with reduced ejection fraction and diastolic dysfunction Is this a current diagnosis for this admission?: Yes Plan: Exacerbation has resolved. Patient has rhonchi on exam, peripheral edema is near his baseline. Patient weight is actually 1 kg lower than his day of discharge last month and proBNP is also decreased from last evaluation. Received one-time dose of IV furosemide by the ED provider. Cardiology is consulted; appreciate Dr. Merrill's evaluation recommendations. Dr. Merrill has since signed off. Continuing home dose amlodipine, metoprolol, aspirin and statin. Will increase Torsemide as patient is receiving IVF w/ abx. Cardiac diet, fluid restricted to 1.5 L daily. Daily weights, strict I&O's. (3) Suspected COVID-19 virus infection Is this a current diagnosis for this admission?: Yes Plan: Pt w/ sudden onset of dyspnea, hypoxia, hemoptysis with fever, leukocytosis, and bilateral infiltrates on CXR. COVID 19 testing negative. Baseline ferritin 304, CRP 16.4, and d-dimer 1.66 Continue vitamin D, vitamin C, zinc and melatonin supplementation. Remaining management as above. (4) Hemoptysis Is this a current diagnosis for this admission?: Yes Plan: Resolved. Secondary to #1-3 Supportive care. (5) Acute respiratory failure with hypoxia Is this a current diagnosis for this admission?: Yes Plan: Secondary to #1-4 Evaluation and management as above. (6) Chronic kidney disease, stage III (moderate) Is this a current diagnosis for this admission?: Yes Plan: Stable and at baseline creatinine. Avoid nephrotoxic medications and dosing as able. Follow-up chemistry. (7) Hypertension Qualifiers: Hypertension type: essential hypertension Qualified Code(s): I10 - Essential (primary) hypertension Is this a current diagnosis for this admission?: Yes Plan: Continue home medications as above. Resume low dose Valsartan. Cardiac diet. (8) Type 2 diabetes mellitus Qualifiers: Diabetes mellitus alf insulin use: without alf use Diabetes mellitus complication status: with kidney complications Diabetes mellitus complication detail: with chronic kidney disease Chronic kidney disease stage: stage 3 (moderate) Qualified Code(s): E11.22 - Type 2 diabetes mellitus with diabetic chronic kidney disease; N18.3 - Chronic kidney disease, stage 3 (moderate) Is this a current diagnosis for this admission?: Yes Plan: Holding oral medications while admitted. Hemoglobin A1c 7.6% Patient is placed on a consistent carb diet. Accu-Cheks before meals and at bedtime with Humalog for sliding scale coverage. Hypoglycemia protocol in place. (9) Obesity (BMI 30.0-34.9) Is this a current diagnosis for this admission?: Yes Plan: BMI 34.3. Lifestyle modification dietary compliance are encouraged. Currently on a cardiac/consistent carb diet. - Time Time Spent with patient: 15-24 minutes Medications reviewed and adjusted accordingly: Yes Anticipated discharge: Home Within: within 48 hours
[2019-06-07] MEDS: VALSARTAN 40 MG TABLET PO SCH (13:20)
[2019-06-07] MEDS: AZITHROMYCIN 250 MG TABLET PO SCH (16:27)
[2019-06-07] MEDS: ATORVASTATIN CALCIUM 40 MG TABLET PO SCH (21:43)
[2019-06-07] MEDS: MELATONIN 3 MG TABLET PO SCH (21:43)
[2019-06-07] MEDS: AMOXICILLIN TR/POT CLAVULANATE 875-125 MG TAB PO SCH (21:44)
[2019-06-08 04:53] LABS: HEMATOCRIT 25.8 % (37.9-51.0); HEMOGLOBIN 8.8 g/dL (13.5-17.0); MEAN CORPUSCULAR HEMOGLOBIN 30.1 pg (27.0-33.4); MEAN CORPUSCULAR HGB CONC 34.2 g/dL (32.0-36.0); MEAN CORPUSCULAR VOLUME 88 fl (80-97); PLATELET COUNT 309 10^3/uL (150-450); RED BLOOD COUNT 2.94 10^6/uL (4.35-5.55); RED CELL DISTRIBUTION WIDTH 15.2 % (11.5-14.0); WHITE BLOOD COUNT 7.3 10^3/uL (4.0-10.5)
[2019-06-08 05:13] LABS: ANION GAP 7 (5-19); BLOOD UREA NITROGEN 31 mg/dL (7-20); CALCIUM 8.7 mg/dL (8.4-10.2); CARBON DIOXIDE 26 mmol/L (22-30); CHLORIDE 102 mmol/L (98-107); GLUCOSE 122 mg/dL (75-110)
[2019-06-08] MEDS: ALBUTEROL SULFATE HFA (90 MCG/PUFF) 200 PUFF/8.5 GM MDI IH SCH ×2 (05:21→13:05)
[2019-06-08] MEDS: HEPARIN SOD (PORCINE) 5,000 UNIT/ML 1 ML VIAL SUBCUT SCH (05:21)
[2019-06-08] MEDS: INSULIN LISPRO 100 UNIT/ML 3 ML VIAL SUBCUT SCH ×2 (08:21→13:04)
[2019-06-08] MEDS: CHOLECALCIFEROL (D3) 1,000 UNIT (25 MCG) TABLET PO SCH (10:54)
[2019-06-08] MEDS: AZITHROMYCIN 250 MG TABLET PO SCH (10:54)
[2019-06-08] MEDS: AMOXICILLIN TR/POT CLAVULANATE 875-125 MG TAB PO SCH (10:54)
[2019-06-08] MEDS: VALSARTAN 40 MG TABLET PO SCH (10:54)
[2019-06-08] MEDS: GUAIFENESIN 600 MG TABLET.SA PO SCH (10:55)
[2019-06-08] MEDS: ASCORBIC ACID 500 MG TABLET PO SCH (10:55)
[2019-06-08] MEDS: METOPROLOL SUCCINATE 25 MG TAB.SR.24H PO SCH (10:56)
[2019-06-08] MEDS: TORSEMIDE 20 MG TABLET PO SCH (10:56)
[2019-06-08] MEDS: AMLODIPINE BESYLATE 10 MG TABLET PO SCH (10:56)
[2019-06-08] MEDS: ZINC SULFATE 220 MG CAPSULE PO SCH (10:58)
[2019-06-08] MEDS: ASPIRIN 81 MG TABLET, ENT COATED PO SCH (10:58)
[2019-06-08] MEDS ORDERED: ACETAMINOPHEN 325 MG TABLET PO PRN (12:38)
[2019-06-08 13:00] VITALS: BP 146/75
--- NOTE | 2019-06-09 11:28 | PDOC DISCHARGE SUMMARY ---
Impression - Admit/DC Date/PCP Admission Date/Primary Care Provider: 06/04/19 11:33 JADIEL SHARPE MD Discharge Date: 06/09/19 - Discharge Diagnosis (1) Pneumonia Is this a current diagnosis for this admission?: Yes (2) Acute on chronic heart failure with reduced ejection fraction and diastolic dysfunction Is this a current diagnosis for this admission?: Yes (3) Suspected COVID-19 virus infection Is this a current diagnosis for this admission?: Yes (4) Hemoptysis Is this a current diagnosis for this admission?: Yes (5) Acute respiratory failure with hypoxia Is this a current diagnosis for this admission?: Yes (6) Chronic kidney disease, stage III (moderate) Is this a current diagnosis for this admission?: Yes (7) Hypertension Is this a current diagnosis for this admission?: Yes (8) Type 2 diabetes mellitus Is this a current diagnosis for this admission?: Yes (9) Obesity (BMI 30.0-34.9) Is this a current diagnosis for this admission?: Yes - Additional Information Resuscitation Status: Full Code Discharge Diet: Cardiac, Diabetic Discharge Activity: Activity As Tolerated, Balance Activity w/Rest, Weigh Daily Referrals: JADIEL SHARPE MD [Primary Care Provider] - 06/16/19 10:45 am () MAKENNA MARKHAM MD [ACTIVE STAFF] - (Follow up with Dr. King within the next 1-2 weeks.) Prescriptions: Amoxicillin/Potassium Clav [Augmentin 875-125 Tablet] 1 tab PO Q12 #14 tablet Melatonin [Melatonin 3 mg Tablet] 6 mg PO QHS #60 tablet Ascorbic Acid [Vitamin C 500 mg Tablet] 500 mg PO BID #60 tablet Zinc Sulfate [Zinc-220 Capsule] 220 mg PO DAILY #30 capsule Azithromycin [Zithromax 250 mg Tablet] 500 mg PO DAILY #10 tablet Home Medications: Aspirin [Ecotrin 81 mg EC Tablet] 81 mg PO DAILY 12/12/18 Atorvastatin Calcium [Lipitor 40 mg Tablet] 40 mg PO QHS 12/12/18 Glipizide [Glipizide Xl] 10 mg PO [id number] 12/12/18 Amlodipine Besylate [Norvasc 10 mg Tablet] 10 mg PO DAILY #30 tablet 12/15/18 Metoprolol Succinate [Toprol Xl 25 mg Tab.sr] 25 mg PO DAILY 05/02/19 Torsemide [Demadex 20 mg Tablet] 20 mg PO BID 05/02/19 Valsartan 320 mg PO DAILY 05/02/19 Ergocalciferol (Vitamin D2) [Drisdol 50,000 unit (1.25MG) Capsule] 50,000 unit PO MO 06/04/19 Furosemide [Lasix 40 mg Tablet] 40 mg PO QAM 06/04/19 Acetaminophen [Tylenol 325 mg Tablet] 650 mg PO Q4HP PRN tablet 06/08/19 Amoxicillin/Potassium Clav [Augmentin 875-125 Tablet] 1 tab PO Q12 #14 tablet 06/08/19 Ascorbic Acid [Vitamin C 500 mg Tablet] 500 mg PO BID #60 tablet 06/08/19 Azithromycin [Zithromax 250 mg Tablet] 500 mg PO DAILY #10 tablet 06/08/19 Guaifenesin [Robitussin Syrup 200 mg/10 ml Ud Cup] 200 mg PO Q4HP PRN udc 06/08/19 Melatonin [Melatonin 3 mg Tablet] 6 mg PO QHS #60 tablet 06/08/19 Zinc Sulfate [Zinc-220 Capsule] 220 mg PO DAILY #30 capsule 06/08/19 History of Present Illiness History of Present Illness: JARED HORVATH JR is a 58 year old male, well-known to the hospital service, with a past medical history significant for CKD 3, dze-vflkquh-yuhsvhvey diabetes mellitus, hypertension, chronic systolic CHF (LVEF 40%), pulmonary hypertension, hyperlipidemia, COPD (not on home O2 dependent) arthritis and obesity who presented to the emergency department today with a complaint of evaluation in the emergency department revealed 2 to 3 days of fatigue, generalized weakness, with sudden onset of shortness of breath noted at 5:00 this morning associated with productive cough and hemoptysis. Patient is uncertain as to whether or not he has been running fevers at home. No known sick contacts, although, patient was admitted to [facility] 30 days ago. Evaluation in the emergency department found Temp 100.8, HR 144, room air SPO2 67%, RR 45, BP 232/112, leukocytosis (WBC 16.3) lymphopenia (9.2), Baseline renal function, proBNP, troponin, unremarkable urinalysis, and chest x-ray revealing mild cardiomegaly with basilar airspace disease with differential including pulmonary edema and or pneumonia. He was provided IV furosemide, Catapril, nitroglycerin ointment, aspirin, IV magnesium, and morphine by the ED provider. He was placed on BiPAP with dr lozano improvement in his respiratory status and is referred to the hospitalist service for admission and management of the above-stated complaints and findings. Hospital Course Hospital Course: (1) Pneumonia Improved; now maintaining oxygen saturations on room. Afebrile >48 hrs, leukocytosis resolved. Patient was admitted with low-grade fever, leukocytosis, and bilateral lower infiltrates on chest x-ray. Blood cultures are NTD Sputum cultures not obtained. COVID19 negative. He was admitted to [facility] on continuous cardiac telemetry. He was empirically placed on IV cefepime and linezolid (avoiding vancomycin secondary to CKD 3) for treatment of healthcare associated pneumonia and transitioned to Augmentin and Azithromycin to complete his full course of therapy. He was provide supplemental oxygen and scheduled and as needed albuterol HFA. He was started on twice daily Mucinex, Robitussin as needed. Aggressive pulmonary toilet with incentive spirometer, flutter valve, and early ambulation. Patient's symptoms rapidly improved and he is now reached the maximum benefit of inpatient admission; discharged to home in stable condition. (2) Acute on chronic heart failure with reduced ejection fraction and diastolic dysfunction Exacerbation has resolved. Patient has rhonchi on exam, peripheral edema is near his baseline. Patient weight is actually 1 kg lower than his day of discharge last month and proBNP is also decreased from last evaluation. Received one-time dose of IV furosemide by the ED provider. Cardiology was consulted; appreciate Dr. Merrill's evaluation recommendations. Dr. Merrill has since signed off. Continuing home dose amlodipine, metoprolol, aspirin and statin. Received increase Torsemide while receiving IVF r/t abx. Cardiac diet, fluid restricted to 1.5 L daily. Daily weights, strict I&O's. (3) Suspected COVID-19 virus infection Pt w/ sudden onset of dyspnea, hypoxia, hemoptysis with fever, leukocytosis, and bilateral infiltrates on CXR. COVID 19 testing negative. Baseline ferritin 304, CRP 16.4, and d-dimer 1.66 Continue vitamin D, vitamin C, zinc and melatonin supplementation. Remaining management as above. (4) Hemoptysis Resolved. Secondary to #1-3 Supportive care. (5) Acute respiratory failure with hypoxia Resolved. Secondary to #1-4 Evaluation and management as above. (6) Chronic kidney disease, stage III (moderate) Stable and at baseline creatinine. (7) Hypertension Continue home medications as above. Cardiac diet. (8) Type 2 diabetes mellitus Hemoglobin A1c 7.6% Resume home medication regiment at discharge. (9) Obesity (BMI 30.0-34.9) BMI 34.3. Lifestyle modification dietary compliance are encouraged. Physical Exam Vital Signs: Temp Pulse Resp BP Pulse Ox 98.1 F 93 15 146/75 H 97 06/08/19 12:56 06/08/19 12:56 06/08/19 12:56 06/08/19 12:56 06/08/19 12:56 Intake & Output 06/08/19 06/09/19 06/10/19 06:59 06:59 06:59 Intake Total 695 Output Total 925 Balance -230 Weight 119.3 kg General appearance: PRESENT: no acute distress, cooperative, obese, well- developed, well-nourished Head exam: PRESENT: atraumatic, normocephalic Eye exam: PRESENT: conjunctiva pink, EOMI, PERRLA. ABSENT: scleral icterus Mouth exam: PRESENT: moist, tongue midline Respiratory exam: PRESENT: clear to auscultation liseth, symmetrical, unlabored, other - room air. ABSENT: rales, rhonchi, wheezes Cardiovascular exam: PRESENT: RRR. ABSENT: diastolic murmur, rubs, systolic murmur Vascular exam: PRESENT: normal capillary refill Extremities exam: PRESENT: full ROM, +1 edema. ABSENT: calf tenderness, clubbing, pedal edema Musculoskeletal exam: PRESENT: ambulatory Neurological exam: PRESENT: alert, awake, oriented to person, oriented to place, oriented to time, oriented to situation, CN II-XII grossly intact. ABSENT: motor sensory deficit Psychiatric exam: PRESENT: appropriate affect, normal mood. ABSENT: homicidal ideation, suicidal ideation Skin exam: PRESENT: dry, intact, warm. ABSENT: cyanosis, rash Results Laboratory Results: WBC 7.3 10^3/uL (4.0-10.5) 06/08/19 04:29 RBC 2.94 10^6/uL (4.35-5.55) L 06/08/19 04:29 Hgb 8.8 g/dL (13.5-17.0) L 06/08/19 04:29 Hct 25.8 % (37.9-51.0) L 06/08/19 04:29 MCV 88 fl (80-97) 06/08/19 04:29 MCH 30.1 pg (27.0-33.4) 06/08/19 04:29 MCHC 34.2 g/dL (32.0-36.0) 06/08/19 04:29 RDW 15.2 % (11.5-14.0) H 06/08/19 04:29 Plt Count 309 10^3/uL (150-450) 06/08/19 04:29 Lymph % (Auto) 9.2 % (13-45) L 06/04/19 07:45 Tripp % (Auto) 4.8 % (3-13) 06/04/19 07:45 Eos % (Auto) 0.8 % (0-6) 06/04/19 07:45 Baso % (Auto) 0.8 % (0-2) 06/04/19 07:45 Absolute Neuts (auto) 13.8 10^3/uL (1.7-8.2) H 06/04/19 07:45 Absolute Lymphs (auto) 1.5 10^3/uL (0.5-4.7) 06/04/19 07:45 Absolute Monos (auto) 0.8 10^3/uL (0.1-1.4) 06/04/19 07:45 Absolute Eos (auto) 0.1 10^3/uL (0.0-0.6) 06/04/19 07:45 Absolute Basos (auto) 0.1 10^3/uL (0.0-0.2) 06/04/19 07:45 Seg Neutrophils % 84.4 % (42-78) H 06/04/19 07:45 D-Dimer 1.66 ug/mL (0.00-0.50) H 06/04/19 07:45 VBG pH 7.39 (7.30-7.42) 06/04/19 09:15 VBG pCO2 41.0 mmHg (35-63) 06/04/19 09:15 VBG HCO3 24.2 mmol/L (20-32) 06/04/19 09:15 VBG Base Excess -0.7 mmol/L 06/04/19 09:15 Sodium 134.8 mmol/L (137-145) L 06/08/19 04:29 Potassium 4.0 mmol/L (3.6-5.0) 06/08/19 04:29 Chloride 102 mmol/L (98-107) 06/08/19 04:29 Carbon Dioxide 26 mmol/L (22-30) 06/08/19 04:29 Anion Gap 7 (5-19) 06/08/19 04:29 BUN 31 mg/dL (7-20) H 06/08/19 04:29 Creatinine 3.45 mg/dL (0.52-1.25) H 06/08/19 04:29 Est GFR ( Amer) 22 (>60) L 06/08/19 04:29 Est GFR (MDRD) Non-Af 18 (>60) L 06/08/19 04:29 Glucose 122 mg/dL (75-110) H 06/08/19 04:29 POC Glucose 204 mg/dL (70-110) H 06/08/19 11:07 Calcium 8.7 mg/dL (8.4-10.2) 06/08/19 04:29 Magnesium 1.5 mg/dL (1.6-2.3) L 06/04/19 07:45 Ferritin 304.00 ng/mL (17.9-464.0) 06/04/19 07:45 Total Bilirubin 0.8 mg/dL (0.2-1.3) 06/04/19 07:45 Direct Bilirubin 0.0 mg/dL (0.0-0.4) 06/04/19 07:45 Neonat Total Bilirubin Not Reportable 06/04/19 07:45 Neonat Direct Bilirubin Not Reportable 06/04/19 07:45 Neonat Indirect Bili Not Reportable 06/04/19 07:45 AST 24 U/L (17-59) 06/04/19 07:45 ALT 17 U/L (<50) 06/04/19 07:45 Alkaline Phosphatase 118 U/L (38-126) 06/04/19 07:45 Troponin I 0.025 ng/mL 06/04/19 07:45 C-Reactive Protein 16.4 mg/L (<10.0) H 06/04/19 07:45 NT-Pro-B Natriuret Pep 3870 pg/mL (<125) H 06/04/19 07:45 Total Protein 7.3 g/dL (6.3-8.2) 06/04/19 07:45 Albumin 3.3 g/dL (3.5-5.0) L 06/04/19 07:45 Urine Color STRAW 06/04/19 10:20 Urine Appearance CLEAR 06/04/19 10:20 Urine pH 7.0 (5.0-9.0) 06/04/19 10:20 Ur Specific [place] 1.009 06/04/19 10:20 Urine Protein >=500 mg/dL (NEGATIVE) H 06/04/19 10:20 Urine Glucose (UA) 150 mg/dL (NEGATIVE) H 06/04/19 10:20 Urine Ketones NEGATIVE mg/dL (NEGATIVE) 06/04/19 10:20 Urine Blood SMALL (NEGATIVE) H 06/04/19 10:20 Urine Nitrite NEGATIVE (NEGATIVE) 06/04/19 10:20 Urine Bilirubin NEGATIVE (NEGATIVE) 06/04/19 10:20 Urine Urobilinogen NEGATIVE mg/dL (<2.0) 06/04/19 10:20 Ur Leukocyte Esterase NEGATIVE (NEGATIVE) 06/04/19 10:20 Urine WBC (Auto) 1 /HPF 06/04/19 10:20 Urine RBC (Auto) 11 /HPF 06/04/19 10:20 Urine Mucus (Auto) RARE /LPF 06/04/19 10:20 Urine Ascorbic Acid NEGATIVE (NEGATIVE) 06/04/19 10:20 COVID-19 Source NASOPHARYNGEAL 06/04/19 11:10 COVID-19 (DARREN) NOT DETECTED 06/04/19 11:10 Blood Type O POSITIVE 06/04/19 07:45 Antibody Screen NEGATIVE 06/04/19 07:45 06/04/19 07:45 Troponin I 0.025 NT-Pro-B Natriuret Pep 3870 H Impressions: Chest X-Ray 06/04/19 07:41 IMPRESSION: MILD CARDIOMEGALY. BASILAR AIRSPACE DISEASE WITH SMALL PLEURAL EFFUSIONS. DIFFERENTIAL INCLUDES PULMONARY EDEMA AND/OR PNEUMONIA. Plan Plan of Treatment: Patient is discharged home in stable condition. He is advised to follow-up with primary care provider within 1 week. 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 Complete full course of antibiotic therapy. Take other medication as prescribed. Eat a heart healthy diet. Do NOT smoke. Return to emergency department as needed for concerning symptoms. COVID19 test was negative. Continue to practice social distancing. Time Spent: Greater than 30 Minutes Stroke Is this a Stroke Patient?: No Acute Heart Failure - Is this a Heart Failure Patient?: Yes Documentation of LVEF assessment?: Yes LVEF < 40%?: No- if no continue to question #3 a) Discharged on ACEI?: N/A Discharged on ARB b) Discharges on ARB?: Yes d) Discharged on evidence-based Beta janice(carvedilol, sustained release metoprolol succinate, or bisoprolol)?: Yes e) For LVEF <35%, discharged on Aldosterone antagonist?: N/A (LVEF > or = 35%) 3. Anticoagulant therapy for permanect/persistent/paraoxysmal Afib or Aflutter: N/A
== END 2019-06-08 13:33 | disposition home or self-care (01) | DRG 193 ==
LOC: ER 07:31 → EH 11:33 → 5 12:50 → 3W 06-07 14:41
PROVIDERS: ADMIT Internal Medicine; ATTEND Registered Nurse
DX: J18.9 Pneumonia, unspecified organism (principal); I50.33 Acute on chronic diastolic (congestive) heart failure; J96.01 Acute respiratory failure with hypoxia; I13.0 Hypertensive heart and chronic kidney disease with heart failure and stage 1 through stage 4 chronic kidney disease, or unspecified chronic kidney disease; R04.2 Hemoptysis; I42.0 Dilated cardiomyopathy; N18.3 Chronic kidney disease, stage 3 (moderate); E11.22 Type 2 diabetes mellitus with diabetic chronic kidney disease; I27.20 Pulmonary hypertension, unspecified; E78.00 Pure hypercholesterolemia, unspecified; E83.42 Hypomagnesemia; E87.6 Hypokalemia; K21.9 Gastro-esophageal reflux disease without esophagitis; F10.20 Alcohol dependence, uncomplicated; Y90.9 Presence of alcohol in blood, level not specified; Z03.818 Encounter for observation for suspected exposure to other biological agents ruled out
CPT/HCPCS: 36415; 71045; 80048; 80053; 80061; 81001; 82043; 82570; 82728; 82803; 82962; 83036; 83735; 83880; 84460; 84484; 85025; 85027; 85379; 86140; 86850; 86900; 86901; 87040; 87635; 93005; 93010; 94660; 94799; 96365; 96375; 99291; J0692; J1644; J1815; J1940; J2020; J2270; J2405; J3475; J3490; J7060

== ENCOUNTER → 2019-06-15 | Outpatient (CLI) | payer MEDICARE, MEDICAID ==
[2019-06-15 12:54] LABS: ABSOLUTE BASOPHILS # (AUTO) 0.1 10^3/uL (0.0-0.2); ABSOLUTE EOSINOPHILS # (AUTO) 0.2 10^3/uL (0.0-0.6); ABSOLUTE LYMPHOCYTES (AUTO) 1.2 10^3/uL (0.5-4.7); ABSOLUTE MONOCYTES (AUTO) 0.5 10^3/uL (0.1-1.4); ABSOLUTE NEUT (AUTO) 5.8 10^3/uL (1.7-8.2); BASOPHILS % (AUTO) 1.2 % (0-2); EOSINOPHILS % (AUTO) 2.9 % (0-6); HEMATOCRIT 29.5 % (37.9-51.0); HEMOGLOBIN 10.2 g/dL (13.5-17.0); LYMPHOCYTES % (AUTO) 15.7 % (13-45); MEAN CORPUSCULAR HEMOGLOBIN 30.6 pg (27.0-33.4); MEAN CORPUSCULAR HGB CONC 34.6 g/dL (32.0-36.0); MEAN CORPUSCULAR VOLUME 88 fl (80-97); MONOCYTES % (AUTO) 6.6 % (3-13); PLATELET COUNT 346 10^3/uL (150-450); RED BLOOD COUNT 3.34 10^6/uL (4.35-5.55); RED CELL DISTRIBUTION WIDTH 15.9 % (11.5-14.0); SEGMENTED NEUTROPHILS % (AUTO) 73.6 % (42-78); TOTAL CELLS COUNTED % (AUTO) 100 %; WHITE BLOOD COUNT 7.9 10^3/uL (4.0-10.5)
[2019-06-15 13:05] LABS: ANION GAP 8 (5-19); BLOOD UREA NITROGEN 24 mg/dL (7-20); CALCIUM 8.9 mg/dL (8.4-10.2); CARBON DIOXIDE 27 mmol/L (22-30); CHLORIDE 102 mmol/L (98-107); GLUCOSE 104 mg/dL (75-110); POTASSIUM 4.1 mmol/L (3.6-5.0)
== END ==
LOC: OD 11:19
PROVIDERS: ATTEND Family Medicine Geriatric Medicine
DX: E11.21 Type 2 diabetes mellitus with diabetic nephropathy (principal); I10 Essential (primary) hypertension; Z79.899 Other long term (current) drug therapy
CPT/HCPCS: 36415; 80048; 85025

== ENCOUNTER 2019-06-16 01:37 | Inpatient (IN) | payer MEDICARE, MEDICAID ==
[2019-06-16] MEDS: NITROGLYCERIN 0.4 MG/TAB 25 TAB/BOTTLE SL PRN ×2 (01:37→01:40)
[2019-06-16] MEDS ORDERED: NITROGLYCERIN 2% OINTMENT 1 GM PACKET TP ONE (01:51)
[2019-06-16] MEDS ORDERED: ONDANSETRON HCL INJ/PF 4 MG/2 ML SDV IV ONE (01:52)
[2019-06-16] MEDS ORDERED: MORPHINE SULFATE 10 MG/ML INJ IV ONE (01:52)
[2019-06-16] MEDS ORDERED: FUROSEMIDE INJ/PF 40 MG/4 ML SDV IV ONE (01:54)
--- NOTE | 2019-06-16 02:06 | ER Document Report ---
ED Respiratory Problem - General Chief Complaint: Shortness Of Breath Stated Complaint: SHORTNESS OF BREATH Time Seen by Provider: 06/16/19 01:49 Notes: Patient is a 58-year-old male with a history of CHF comes emergency department for chief complaint of difficulty breathing. Patient was driven here by personal vehicle, patient is barely able to give me any history due to difficulty breathing. Patient does deny fever, denies chest pain, reports worsening shortness of breath tonight that became severe. TRAVEL OUTSIDE OF THE [place] IN LAST 30 DAYS: No - Related Data Allergies/Adverse Reactions: No Known Allergies Allergy (Verified 06/10/18 17:31) Past Medical History - General Information source: Patient - Social History Smoking Status: Never Smoker Drug Abuse: None Lives with: Family Family History: Reviewed & Not Pertinent, CAD, Hypertension, Malignancy - Past Medical History Cardiac Medical History: Reports: Hx Congestive Heart Failure, Hx Hypercholesterolemia, Hx Hypertension, Hx Peripheral Vascular Disease Pulmonary Medical History: Reports: Hx COPD, Hx Pneumonia, Hx Respiratory Failure Denies: Hx Asthma, Hx Bronchitis, Hx Tuberculosis Neurological Medical History: Denies: Hx Seizures, Hx Parkinson's Disease Endocrine Medical History: Reports: Hx Diabetes Mellitus Type 2. Denies: Hx Diabetes Mellitus Type 1, Hx Hyperthyroidism, Hx Hypothyroidism Renal/ Medical History: Denies: Hx Benign Prostatic Hyperplasia, Hx End Stage Renal Disease, Hx Kidney Stones, Hx Peritoneal Dialysis GI Medical History: Reports: Hx Gastroesophageal Reflux Disease. 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 - Immunizations Hx Diphtheria, Pertussis, Tetanus Vaccination: Yes Hx Pneumococcal Vaccination: 02/25/18 Review of Systems - Review of Systems Constitutional: No symptoms reported EENT: No symptoms reported Cardiovascular: No symptoms reported Respiratory: See HPI Gastrointestinal: No symptoms reported Genitourinary: No symptoms reported Male Genitourinary: No symptoms reported Musculoskeletal: No symptoms reported Skin: No symptoms reported Hematologic/Lymphatic: No symptoms reported Neurological/Psychological: No symptoms reported Physical Exam - Vital signs Vitals: Pulse Ox 59 L 06/16/19 01:29 - Notes Notes: GENERAL: Patient awake but ill appearing, has difficulty speaking HEAD: Normocephalic, atraumatic. EYES: Pupils equal, round, and reactive to light. Extraocular movements intact. ENT: Oral mucosa moist, tongue midline. Oropharynx unremarkable. Airway patent. LUNGS: Labored breathing with tachypnea, patient is in respiratory distress. Rales heard throughout all lung gold. HEART: Borderline tachycardic, normal rhythm ABDOMEN: Soft, non-tender. Non-distended. EXTREMITIES: Very tight stockings on what appears to be lower extremity edema bilaterally BACK: no cervical, thoracic, lumbar midline tenderness. No saddle anesthesia, normal distal neurovascular exam. Moves all extremities in full range of motion. NEUROLOGICAL: Alert and responsive but limited exam initially SKIN: Warm, dry, normal turgor. No rashes or lesions noted. Course - Re-evaluation Re-evalutation: 06/16/19 01:45 On my initial exam patient was lying almost at a 45 degree angle, was in severe respiratory distress with very labored breathing, tachypnea, and oxygen saturation was 50%. Patient was placed on nonrebreather mask, I elevated him to 90 degrees angle, patient immediately gagged and coughed out frothy sputum. I heard rales throughout all lung gold. Patient wass hypertensive about 180 systolic. I gave patient 3 consecutive sublingual nitroglycerin tablets, patient rapidly improved to 80% on nonrebreather and then 85% on nonrebreather. Patient was then transitioned over to BiPAP, after 2 to 3 minutes on BiPAP oxygen saturation significantly improved into the mid to upper 90s. Patient is able to answer orientation questions without difficulty, patient appears been stabilized for now, work-up pending, he will be closely reevaluated. Updated Dr. Dos Santos. 06/16/19 02:11 Remaining medical history noted to be type 2 diabetes, chronic kidney disease, systolic congestive heart failure, hypertension, hyperlipidemia, pulmonary hypertension. Patient denies to me that he smokes, drinks alcohol, or takes recreational drugs. Patient continues to be much improved, work-up pending. On evaluation patient is almost completely asymptomatic. Lungs are much improved on auscultation. Hypoxia is resolved, labored breathing is resolved. Chest x-ray without significant change from prior, CBC, chemistry, and venous blood gas approximately at baseline. Because of this lack of change along with patient's presentation I suspect flash pulmonary edema. Troponin is indeterminate. EKG unchanged from prior. Discussed with patient, discussed with Dr. Christensen, will discuss with hospitalist for admission. Discussed with Dr. Linder, hospitalist, patient accepted to [facility] full admission. - Vital Signs Vital signs: Temp Pulse Resp BP Pulse Ox 98.4 F 15 152/96 H 100 06/16/19 02:51 06/16/19 03:45 06/16/19 03:45 06/16/19 03:45 - Laboratory Result Diagrams: 06/16/19 01:35 06/16/19 01:35 Laboratory results interpreted by me: 06/16/19 06/16/19 06/16/19 01:35 01:35 01:35 RBC 3.51 L Hgb 10.7 L Hct 31.4 L RDW 16.2 H BUN 26 H Creatinine 2.78 H Est GFR ( Amer) 28 L Est GFR (MDRD) Non-Af 23 L Glucose 228 H NT-Pro-B Natriuret Pep 3390 H Albumin 3.3 L - EKG Interpretation by Me Additional EKG results interpreted by me: EKG shows sinus rhythm at a rate of 79, QTC of 519, left axis deviation. There are T wave inversions laterally. Borderline ST segment depressions in anterior leads. However compared to prior there is no significant change. Critical Care Note - Critical Care Note Total time excluding time spent on procedures (mins): 35 - Flash pulmonary edema, hypoxia, respiratory distress Comments: Please allow 35 minutes of critical care time for evaluation management of patient with flash pulmonary edema, respiratory distress, acute hypoxia. Interventions including sublingual nitroglycerin, nitroglycerin paste, Lasix, morphine, oxygen, BiPAP therapy. Time spent reviewing previous records and performing multiple re-evaluations. Time spent admitting to the hospital. Discharge - Discharge Clinical Impression: Flash pulmonary edema, Hypoxia, Shortness of breath Condition: Stable Disposition: ADMITTED INPATIENT Admitting Provider: Kailash (Hospitalist) Unit Admitted: [facility]
[2019-06-16] MEDS ORDERED: NITROGLYCERIN 0.4 MG/TAB 25 TAB/BOTTLE SL ONE (02:07)
[2019-06-16 02:10] LABS: VENOUS BLOOD BASE EXCESS 2.5 mmol/L; VENOUS BLOOD HCO3 27.5 mmol/L (20-32); VENOUS BLOOD PCO2 44.4 mmHg (35-63); VENOUS BLOOD PH 7.41 (7.30-7.42)
[2019-06-16 02:21] LABS: ALBUMIN 3.3 g/dL (3.5-5.0); ALKALINE PHOSPHATASE 122 U/L (38-126); ANION GAP 7 (5-19); ASPARTATE AMINO TRANSFERASE 26 U/L (17-59); BILIRUBIN,TOTAL 0.6 mg/dL (0.2-1.3); BLOOD UREA NITROGEN 26 mg/dL (7-20); CALCIUM 8.9 mg/dL (8.4-10.2); CARBON DIOXIDE 28 mmol/L (22-30); CHLORIDE 102 mmol/L (98-107); GLUCOSE 228 mg/dL (75-110); POTASSIUM 3.9 mmol/L (3.6-5.0); TOTAL PROTEIN 7.3 g/dL (6.3-8.2)
[2019-06-16 02:28] LABS: ABSOLUTE BASOPHILS # (AUTO) 0.1 10^3/uL (0.0-0.2); ABSOLUTE EOSINOPHILS # (AUTO) 0.3 10^3/uL (0.0-0.6); ABSOLUTE LYMPHOCYTES (AUTO) 1.3 10^3/uL (0.5-4.7); ABSOLUTE MONOCYTES (AUTO) 0.4 10^3/uL (0.1-1.4); ABSOLUTE NEUT (AUTO) 5.3 10^3/uL (1.7-8.2); HEMATOCRIT 31.4 % (37.9-51.0); HEMOGLOBIN 10.7 g/dL (13.5-17.0); LYMPHOCYTES % (AUTO) 17.6 % (13-45); MEAN CORPUSCULAR HEMOGLOBIN 30.4 pg (27.0-33.4); MEAN CORPUSCULAR VOLUME 89 fl (80-97); MONOCYTES % (AUTO) 5.5 % (3-13); PLATELET COUNT 373 10^3/uL (150-450); RED BLOOD COUNT 3.51 10^6/uL (4.35-5.55); RED CELL DISTRIBUTION WIDTH 16.2 % (11.5-14.0); SEGMENTED NEUTROPHILS % (AUTO) 71.9 % (42-78); TOTAL CELLS COUNTED % (AUTO) 100 %; WHITE BLOOD COUNT 7.3 10^3/uL (4.0-10.5)
[2019-06-16 02:32] LABS: TROPONIN I 0.025 ng/mL
--- NOTE | 2019-06-16 02:57 | RADIOLOGY REPORT (SQ) ---
EXAM DESCRIPTION: XR CHEST 1 VIEW COMPLETED DATE/TME: 06/16/2019 01:49 CLINICAL HISTORY: 58 years Male, shortness of breath, hypoxia, rales on exam COMPARISON: 06/04/19 NUMBER OF VIEWS/TECHNIQUE: 1/AP FINDINGS: Moderate mixed airspace and interstitial opacity, central and lower.Normal cardiac silhouette size. No pneumothorax. Stable bony thorax. IMPRESSION: No significant change.
[2019-06-16] MEDS ORDERED: MAG HYDROX/AL HYDROX/SIMETH SUSP 30 ML UDCUP PO PRN (04:10)
[2019-06-16] MEDS ORDERED: ACETAMINOPHEN 325 MG TABLET PO PRN (04:10)
[2019-06-16] MEDS ORDERED: PROMETHAZINE HCL INJ 25 MG/1 ML VIAL IV PRN (04:10)
[2019-06-16] MEDS ORDERED: MAGNESIUM HYDROXIDE SUSP 30 ML UDCUP PO PRN (04:10)
[2019-06-16] MEDS ORDERED: LORAZEPAM INJ 2 MG/1 ML VIAL IV PRN (04:19)
[2019-06-16] MEDS ORDERED: GLUCAGON,HUMAN RECOMB 1 MG INJ IM PRN (04:19)
[2019-06-16] MEDS ORDERED: MORPHINE SULFATE 10 MG/ML INJ IV PRN (04:19)
[2019-06-16] MEDS ORDERED: DEXTROSE 40% GEL 15 GM TUBE PO PRN ×2 (04:19)
[2019-06-16] MEDS ORDERED: DEXTROSE 50%-WATER 25 GM/50 ML DISP.SYRIN IV PRN ×2 (04:19)
[2019-06-16] MEDS ORDERED: FUROSEMIDE INJ/PF 40 MG/4 ML SDV IV SCH (06:00)
[2019-06-16] MEDS: NITROGLYCERIN 2% OINTMENT 1 GM PACKET TP SCH ×2 (06:19→12:34)
[2019-06-16] MEDS: PANTOPRAZOLE SODIUM 40 MG TABLET.DR PO SCH (06:19)
[2019-06-16] MEDS: HEPARIN SOD (PORCINE) 5,000 UNIT/ML 1 ML VIAL SUBCUT SCH ×3 (06:21→22:02)
[2019-06-16] MEDS ORDERED: HYDRALAZINE HCL INJ/PF 20 MG/1 ML SDV IV PRN (06:23)
[2019-06-16] MEDS ORDERED: METOPROLOL TARTRATE PF/INJ 5 MG/5 ML SDV IV PRN (06:24)
--- NOTE | 2019-06-16 06:26 | PDOC H&P ---
History of Present Illness Admission Date/PCP: 06/16/19 03:27 JADIEL SHARPE MD Patient complains of: Dyspnea History of Present Illness: JARED HORVATH JR is a 58 year old male who presented to the emergency room with acute dyspnea. He admits suddenly developing severe dyspnea while at home on the evening of 06/15/2019. His dyspnea was accompanied by orthopnea. He denies any other associated or accompanying signs and symptoms. His dyspnea was markedly worsened by any exertion or activity. He admits prior similar episodes related to his congestive heart failure. He has not identified any additional aggravating or ameliorating factors for his acute dyspnea. In the emergency room he was found to be in acute pulmonary edema and was treated with BiPAP, intravenous morphine sulfate, intravenous diuretics and sublingual nitroglycerin. He responded well to treatment and was subsequently admitted to the [facility] for further evaluation and ongoing care. Past Medical History Cardiac Medical History: Reports: Congestive Heart Failure - Chronic combined systolic and diastolic congestive heart failure, Hyperlipidema, Hypertension, Peripheral Vascular Disease Denies: Atrial Fibrillation, Coronary Artery Disease, DVT, Myocardial Infarction, Pulmonary Embolism Pulmonary Medical History: Reports: Pneumonia, Respiratory Failure Denies: Asthma, Bronchitis, Chronic Obstructive Pulmonary Disease (COPD), Tuberculosis EENT Medical History: Denies: Cataracts, Ears - Hearing aids Neurological Medical History: Denies: Hemorrhagic CVA, Ischemic CVA, Seizures Endocrine Medical History: Reports: Diabetes Mellitus Type 2, Obesity Denies: Diabetes Mellitus Type 1, Hyperthyroidism, Hypothyroidism Renal/ Medical History: Reports: Chronic Kidney Disease Denies: End Stage Renal Disease, Nephrolithiasis Malignancy Medical History: Reports: None GI Medical History: Reports: Gastroesophageal Reflux Disease Denies: Cirrhosis, Crohn's Disease, Hepatitis, Peptic Ulcer Disease, Ulcerative Colitis Musculoskeltal Medical History: Reports: Arthritis Denies: Gout Skin Medical History: Denies: Eczema, Psoriasis Psychiatric Medical History: Reports: Alcohol Dependency Denies: Substance Abuse, Tobacco Dependency Traumatic Medical History: Reports: None Hematology: Reports: Anemia - Chronic anemia due to chronic kidney disease Denies: Bleeding Tendencies Infectious Medical History: Reports: None Past Surgical History Past Surgical History: Reports: Orthopedic Surgery - 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 denies: DM Parental Family History Reviewed: Yes Children Family History Reviewed: No Sibling(s) Family History Reviewed.: Yes Medication/Allergy Home Medications: Aspirin [Ecotrin 81 mg EC Tablet] 81 mg PO DAILY 12/12/18 Atorvastatin Calcium [Lipitor 40 mg Tablet] 40 mg PO QHS 12/12/18 Glipizide [Glipizide Xl] 10 mg PO [id number] 12/12/18 Amlodipine Besylate [Norvasc 10 mg Tablet] 10 mg PO DAILY #30 tablet 12/15/18 Metoprolol Succinate [Toprol Xl 25 mg Tab.sr] 25 mg PO DAILY 05/02/19 Torsemide [Demadex 20 mg Tablet] 20 mg PO BID 05/02/19 Valsartan 320 mg PO DAILY 05/02/19 Ergocalciferol (Vitamin D2) [Drisdol 50,000 unit (1.25MG) Capsule] 50,000 unit PO MO 06/04/19 Furosemide [Lasix 40 mg Tablet] 40 mg PO QAM 06/04/19 Acetaminophen [Tylenol 325 mg Tablet] 650 mg PO Q4HP PRN tablet 06/08/19 Amoxicillin/Potassium Clav [Augmentin 875-125 Tablet] 1 tab PO Q12 #14 tablet 06/08/19 Ascorbic Acid [Vitamin C 500 mg Tablet] 500 mg PO BID #60 tablet 06/08/19 Azithromycin [Zithromax 250 mg Tablet] 500 mg PO DAILY #10 tablet 06/08/19 Guaifenesin [Robitussin Syrup 200 mg/10 ml Ud Cup] 200 mg PO Q4HP PRN udc 06/08/19 Melatonin [Melatonin 3 mg Tablet] 6 mg PO QHS #60 tablet 06/08/19 Zinc Sulfate [Zinc-220 Capsule] 220 mg PO DAILY #30 capsule 06/08/19 Allergies/Adverse Reactions: No Known Allergies Allergy (Verified 06/10/18 17:31) Review of Systems Constitutional: ABSENT: chills, fever(s) Eyes: ABSENT: visual disturbances, other - Eye pain Ears: ABSENT: hearing changes, other - Ear pain Nose, Mouth, and Throat: ABSENT: headache(s), sore throat Cardiovascular: PRESENT: as per HPI, dyspnea on exertion, orthropnea. ABSENT: chest pain, edema, palpitations Respiratory: PRESENT: as per HPI, dyspnea. ABSENT: cough Gastrointestinal: ABSENT: abdominal pain, constipation, diarrhea, nausea, vomiting Genitourinary: ABSENT: dysuria, hematuria Musculoskeletal: ABSENT: back pain, joint swelling Integumentary: ABSENT: diaphoresis, pruritus, rash Neurological: ABSENT: confusion, convulsions, focal weakness, memory loss, syncope Psychiatric: ABSENT: anxiety, depression Endocrine: ABSENT: cold intolerance, heat intolerance, polydipsia, polyphagia, polyuria Hematologic/Lymphatic: ABSENT: easy bleeding, easy bruising Allergic/Immunologic: ABSENT: seasonal rhinorrhea Physical Exam Vital Signs: Temp Pulse Resp BP Pulse Ox 98.4 F 30 H 100 06/16/19 02:51 06/16/19 01:45 06/16/19 02:57 Intake & Output 06/14/19 06/15/19 06/16/19 23:59 23:59 23:59 Weight 123 kg General appearance: PRESENT: no acute distress, cooperative, obese, other - On BiPAP at the time of my exam Head exam: PRESENT: atraumatic, normocephalic Eye exam: PRESENT: conjunctiva pink. ABSENT: conjunctival injection, scleral icterus Ear exam: PRESENT: normal external ear exam. ABSENT: bleeding, drainage Mouth exam: PRESENT: dry mucosa, neck supple Neck exam: ABSENT: thyromegaly, tracheal deviation Respiratory exam: PRESENT: rales - Bilateral fine rales in the lower one third of both lung gold, symmetrical, other - BiPAP at the time of my exam Cardiovascular exam: PRESENT: gallop - S4 gallop rhythm, RRR. ABSENT: clicks, rubs Pulses: PRESENT: normal radial pulses, normal dorsalis pedis pul Vascular exam: PRESENT: normal capillary refill. ABSENT: pallor GI/Abdominal exam: PRESENT: normal bowel sounds, soft Rectal exam: PRESENT: deferred Extremities exam: PRESENT: pedal edema - Trace bipedal edema, +1 edema - Trace to 1+ bilateral pretibial edema. ABSENT: joint swelling Musculoskeletal exam: ABSENT: deformity, dislocation Neurological exam: PRESENT: alert, oriented to person, oriented to place, oriented to time, oriented to situation, CN II-XII grossly intact. ABSENT: m otor sensory deficit Psychiatric exam: PRESENT: appropriate affect, normal mood Skin exam: PRESENT: dry, intact, warm. ABSENT: jaundice, rash, urticaria Results Laboratory Results: 06/16/19 01:35 06/16/19 01:35 06/16/19 06/16/19 06/16/19 01:35 01:35 01:35 WBC 7.3 RBC 3.51 L Hgb 10.7 L Hct 31.4 L MCV 89 MCH 30.4 MCHC 34.0 RDW 16.2 H Plt Count 373 Seg Neutrophils % 71.9 VBG pH 7.41 VBG pCO2 44.4 VBG HCO3 27.5 VBG Base Excess 2.5 Sodium 137.1 Potassium 3.9 Chloride 102 Carbon Dioxide 28 Anion Gap 7 BUN 26 H Creatinine 2.78 H Est GFR ( Amer) 28 L Glucose 228 H Calcium 8.9 Total Bilirubin 0.6 AST 26 Alkaline Phosphatase 122 Total Protein 7.3 Albumin 3.3 L 06/16/19 01:35 Troponin I 0.025 NT-Pro-B Natriuret Pep 3390 H Impressions: Chest X-Ray 06/16/19 01:49 IMPRESSION: No significant change. Assessment and Plan - Diagnosis (1) Acute pulmonary edema with congestive heart failure Is this a current diagnosis for this admission?: Yes (2) Acute on chronic combined systolic and diastolic congestive heart failure Is this a current diagnosis for this admission?: Yes (3) Acute respiratory failure with hypoxia Is this a current diagnosis for this admission?: Yes (4) Diabetes mellitus type 2 in obese Is this a current diagnosis for this admission?: Yes (5) Hyperlipidemia associated with type 2 diabetes mellitus Is this a current diagnosis for this admission?: Yes (6) Hypertension Qualifiers: Hypertension type: essential hypertension Qualified Code(s): I10 - Essential (primary) hypertension Is this a current diagnosis for this admission?: Yes (7) Chronic kidney disease, stage IV (severe) Is this a current diagnosis for this admission?: Yes (8) Obesity (BMI 30.0-34.9) Is this a current diagnosis for this admission?: Yes - Plan Summary Summary: Patient is admitted to [facility] where he will receive routine supportive and symptomatic cares. Cardiology consultation will be obtained with Dr. Campos. He will be treated aggressively with supplemental oxygen via noninvasive airway pressure support devices as required to maintain adequate oxygenation. He will be treated aggressively with morphine sulfate 2 mg IV every hour as needed for dyspnea due to congestive heart failure. He will be continued on topical 2% nitroglycerin ointment 1 g every 6 hours. He will be continued on aggressive diuretic therapy with Lasix 40 mg IV every 6 hours. A nephrology consultation will be obtained with Dr. Hogan. Patient will use Ativan 1 mg IV every 4 hours as needed for anxiety or restlessness. Before meals and at bedtime Accu-Cheks will be obtained and sliding scale insulin will be used to control hyperglycemia and a hypoglycemic protocol will be in place. Patient will be placed on a car diac, diabetic and renal restricted diet. Patient's usual medications will be continued, as appropriate, once his medication list has been verified and reconciled. Serial cardiac enzymes will be obtained. CBCs, metabolic profiles, magnesium levels and blood gases will be obtained as needed. - Time Time Spent with patient: 15-24 minutes Medications reviewed and adjusted accordingly: Yes Anticipated discharge: Home - Inpatient Certification Based on my medical assessment, after consideration of the patient's comorbidities, presenting symptoms, or acuity I expect that the services needed warrant INPATIENT care.: Yes I certify that my determination is in accordance with my understanding of Medicare's requirements for reasonable and necessary INPATIENT services [42 CFR 412.3e].: Yes Medical Necessity: Significant Comorbidiites Make Outpatient Treatment Too Risky, Need Close Monitoring Due to Risk of Patient Decompensation, Need For Continuous Telemetry Monitoring, Risk of Complication if Not Cared For in Hosp ital, Other - Need for BiPAP respiratory support.
[2019-06-16 07:20] LABS: CREATINE KINASE MB 3.43 ng/mL (<4.55); TROPONIN I 0.054 ng/mL
--- NOTE | 2019-06-16 09:16 | PDOC CONSULTATION ---
Consultation Consult Date: 06/16/19 Attending physician:: GABRIEL ELKINS Provider Consulted: TRAM MORENO Consult reason:: Heart failure History of Present Illness Admission Date/PCP: 06/16/19 03:27 JADIEL SHARPE MD Patient complains of: Dyspnea History of Present Illness: JARED HORVATH JR is a 58 year old male with history of heart failure with reduced ejection fraction, stage III-IV CKD, chronic lower extremity edema, dilated cardiomyopathy, moderate to severe pulmonary hypertension, essential hypertension, type 2 diabetes, alcohol abuse who is consulted to cardiology for further evaluation and management of heart failure. The patient was admitted to this facility 05/02/2019 through 05/08/2019 at which time he was intubated due t o severe respiratory failure. He was readmitted 06/04/2019 through 06/09/2019 with hypertensive urgency, heart failure and respiratory infection as well as COPD exacerbation. He was diuresed appropriately and was discharged. Unfortunately, he now presents again to the emergency room with complaints of severe shortness of breath and weight gain. In the emergency room he was treated with BiPAP and IV diuresis with adequate response. This morning the patient is found resting comfortably in bed and without cardiovascular complaints. Unfortunately he admits to a high sodium diet that includes pasta, sauces and other processed foods such as cheese, carroll as well as canned goods. Physical exam on 06/16/2019: GENERAL: Pleasant, no respiratory distress, oriented x3 with normal mood. Well developed. HEENT: Normocephalic, atraumatic. Pupils equal. Sclerae anicteric. Oropharynx moist. NECK: Difficult to evaluate for JVD due to his body habitus. No carotid bruits. LUNGS: Very mild crackles at both bases. CARDIOVASCULAR: Regular rate and rhythm, normal S1 and S2 without murmurs, rubs, or gallops. PMI not displaced. ABDOMEN: No masses or tenderness to palpation. No bruit. No splenomegaly or hepatomegaly. No abdominal aorta bruit noted. EXTREMITIES: 2+ pitting edema bilaterally, no cyanosis, no clubbing. Difficult to palpate pulses due to his body habitus and lower extremity edema. MUSCULOSKELETAL: No chest tenderness to palpation. NEUROLOGIC: Nonfocal. No gross sensory or motor deficits bilateral upper or lower extremities. Cardiac studies: Echocardiogram on 05/04/2019 at [facility]: -Mild to moderate LVE. -Mild concentric LVH. -EF 40 to 45%. -Grade 1 diastolic dysfunction. -Global hypokinesis. -Mild biatrial enlargement. -Mild MAC without stenosis. -Trace MR, mild TR. -Moderate to severe pulmonary hypertension with pressures between 55 and 60 mmHg. Past Medical History Cardiac Medical History: Reports: Congestive Heart Failure - Chronic combined systolic and diastolic congestive heart failure, Hyperlipidema, Hypertension, Peripheral Vascular Disease Denies: Atrial Fibrillation, Coronary Artery Disease, DVT, Myocardial Infarction, Pulmonary Embolism Pulmonary Medical History: Reports: Pneumonia, Respiratory Failure Denies: Asthma, Bronchitis, Chronic Obstructive Pulmonary Disease (COPD), Tuberculosis EENT Medical History: Denies: Cataracts, Ears - Hearing aids Neurological Medical History: Denies: Hemorrhagic CVA, Ischemic CVA, Seizures Endocrine Medical History: Reports: Diabetes Mellitus Type 2, Obesity Denies: Diabetes Mellitus Type 1, Hyperthyroidism, Hypothyroidism Renal/ Medical History: Reports: Chronic Kidney Disease Denies: End Stage Renal Disease, Nephrolithiasis Malignancy Medical History: Reports: None GI Medical History: Reports: Gastroesophageal Reflux Disease Denies: Cirrhosis, Crohn's Disease, Hepatitis, Peptic Ulcer Disease, Ulcerative Colitis Musculoskeltal Medical History: Reports: Arthritis Denies: Gout Skin Medical History: Denies: Eczema, Psoriasis Psychiatric Medical History: Reports: Alcohol Dependency Denies: Bipolar Disorder, Depression, Substance Abuse, Tobacco Dependency Traumatic Medical History: Reports: None Hematology: Reports: Anemia - Chronic anemia due to chronic kidney disease Denies: Bleeding Tendencies Infectious Medical History: Reports: None Past Surgical History Past Surgical History: Reports: Orthopedic Surgery - 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 Social History Lives with: Spouse/Significant other Smoking Status: Never Smoker Electronic Cigarette use?: No Frequency of Alcohol Use: Heavy Hx Recreational Drug Use: No Drugs: None Hx Prescription Drug Abuse: No - Advance Directive Resuscitation Status: Full Code Family History Family History: CAD, Hypertension, Malignancy. denies: DM Parental Family History Reviewed: Yes Children Family History Reviewed: Yes Sibling(s) Family History Reviewed.: Yes Medication/Allergy Home Medications: Aspirin [Ecotrin 81 mg EC Tablet] 81 mg PO DAILY 12/12/18 Atorvastatin Calcium [Lipitor 40 mg Tablet] 40 mg PO QHS 12/12/18 Amlodipine Besylate [Norvasc 10 mg Tablet] 10 mg PO DAILY #30 tablet 12/15/18 Metoprolol Succinate [Toprol Xl 25 mg Tab.sr] 25 mg PO DAILY 05/02/19 Torsemide [Demadex 20 mg Tablet] 20 mg PO BID 05/02/19 Valsartan 320 mg PO DAILY 05/02/19 Ergocalciferol (Vitamin D2) [Drisdol 50,000 unit (1.25MG) Capsule] 50,000 unit PO MO 06/04/19 Furosemide [Lasix 40 mg Tablet] 40 mg PO QAM 06/04/19 Melatonin [Melatonin 3 mg Tablet] 6 mg PO QHS #60 tablet 06/08/19 Albuterol Sulfate [Proair Hfa Inhalation Aerosol 8.5 gm Mdi] 1 puff IH Q4HP PRN 06/16/19 Glipizide [Glipizide Xl] 10 mg PO DAILY 06/16/19 Allergies/Adverse Reactions: No Known Allergies Allergy (Verified 06/10/18 17:31) Physical Exam Vital Signs: Temp Pulse Resp BP Pulse Ox 98.4 F 80 14 167/97 H 100 06/16/19 02:51 06/16/19 07:00 06/16/19 04:15 06/16/19 04:15 06/16/19 04:15 Intake & Output 06/15/19 06/16/19 06/17/19 06:59 06:59 06:59 Output Total 250 Balance -250 Weight 123 kg Results Laboratory Results: 06/16/19 01:35 06/16/19 01:35 06/16/19 06/16/19 06/16/19 01:35 01:35 01:35 WBC 7.3 RBC 3.51 L Hgb 10.7 L Hct 31.4 L MCV 89 MCH 30.4 MCHC 34.0 RDW 16.2 H Plt Count 373 Seg Neutrophils % 71.9 VBG pH 7.41 VBG pCO2 44.4 VBG HCO3 27.5 VBG Base Excess 2.5 Sodium 137.1 Potassium 3.9 Chloride 102 Carbon Dioxide 28 Anion Gap 7 BUN 26 H Creatinine 2.78 H Est GFR ( Amer) 28 L Glucose 228 H Calcium 8.9 Total Bilirubin 0.6 AST 26 Alkaline Phosphatase 122 Total Protein 7.3 Albumin 3.3 L 06/16/19 06/16/19 06/16/19 01:35 06:06 06:06 Creatine Kinase 277 H CK-MB (CK-2) 3.43 Troponin I 0.025 0.054 NT-Pro-B Natriuret Pep 3390 H 06/16/19 01:35 06/16/19 01:35 MCV 89 fl (80-97) 06/16/19 01:35 MCH 30.4 pg (27.0-33.4) 06/16/19 01:35 MCHC 34.0 g/dL (32.0-36.0) 06/16/19 01:35 RDW 16.2 % (11.5-14.0) H 06/16/19 01:35 Seg Neutrophils % 71.9 % (42-78) 06/16/19 01:35 VBG pH 7.41 (7.30-7.42) 06/16/19 01:35 VBG pCO2 44.4 mmHg (35-63) 06/16/19 01:35 VBG HCO3 27.5 mmol/L (20-32) 06/16/19 01:35 VBG Base Excess 2.5 mmol/L 06/16/19 01:35 Chloride 102 mmol/L (98-107) 06/16/19 01:35 Carbon Dioxide 28 mmol/L (22-30) 06/16/19 01:35 Anion Gap 7 (5-19) 06/16/19 01:35 Est GFR ( Amer) 28 (>60) L 06/16/19 01:35 Glucose 228 mg/dL (75-110) H 06/16/19 01:35 Calcium 8.9 mg/dL (8.4-10.2) 06/16/19 01:35 Total Bilirubin 0.6 mg/dL (0.2-1.3) 06/16/19 01:35 AST 26 U/L (17-59) 06/16/19 01:35 Alkaline Phosphatase 122 U/L (38-126) 06/16/19 01:35 Total Protein 7.3 g/dL (6.3-8.2) 06/16/19 01:35 Albumin 3.3 g/dL (3.5-5.0) L 06/16/19 01:35 06/16/19 06/16/19 06/16/19 01:35 06:06 06:06 Creatine Kinase 277 H CK-MB (CK-2) 3.43 Troponin I 0.025 0.054 NT-Pro-B Natriuret Pep 3390 H Current Medication List Generic Name Dose Route Start Last Admin Trade Name Reyna PRN Reason Stop Dose Admin Acetaminophen 650 mg 06/16/19 04:10 Tylenol 325 Mg Tablet PO 07/16/19 04:09 Q4HP PRN pain or temp greater than 101F Al Hydrox/Mg Hydrox/Simethicone 30 ml 06/16/19 04:10 Maalox Plus Susp 30 Udcup PO 07/16/19 04:09 Q4HP PRN [facility] Amlodipine Besylate 10 mg 06/16/19 10:00 Norvasc 10 Mg Tablet PO 07/16/19 09:59 DAILY [facility] Aspirin 81 mg 06/16/19 10:00 Ecotrin 81 Mg Ec Tablet PO 07/16/19 09:59 DAILY [facility] Atorvastatin Calcium 40 mg 06/16/19 22:00 Lipitor 40 Mg Tablet PO 07/16/19 21:59 QHS [facility] Clopidogrel Bisulfate 75 mg 06/16/19 10:00 Plavix 75 Mg Tablet PO 07/16/19 09:59 DAILY [facility] Dextrose 12.5 gm 06/16/19 04:19 Dextrose Inj 50% Syringe (25 Gm/50 Ml) IV 07/16/19 04:18 PRN PRN FOR BG 50-69 IN ALERT PATIENT Protocol Dextrose 25 gm 06/16/19 04:19 Dextrose Inj 50% Syringe (25 Gm/50 Ml) IV 07/16/19 04:18 PRN PRN PER PROTOCOL Protocol Docusate Sodium 100 mg 06/16/19 10:00 Colace 100 Mg Capsule PO 07/16/19 09:59 DAILY [facility] Ergocalciferol 50,000 unit 06/22/19 08:45 Drisdol 50,000 Unit (1.25mg) Capsule PO 07/22/19 08:44 MO [facility] Furosemide 60 mg 06/16/19 10:00 Lasix Inj/Pf 40 Mg/4 Ml Sdv IV 07/16/19 09:59 BID [facility] Glipizide 10 mg 06/16/19 10:00 Glucotrol Xl 5 Mg Tab.Er PO 07/16/19 09:59 DAILY [facility] Glucagon 1 mg 06/16/19 04:19 Glucagen Inj 1 Mg Vial IM 07/16/19 04:18 PRN PRN Evaluate for BG < 70 Protocol Glucose 15 gm 06/16/19 04:19 Glutose 40% Gel 15 Gm Tube PO 07/16/19 04:18 PRN PRN FOR BG 50-69 IN ALERT PATIENT Protocol Glucose 30 gm 06/16/19 04:19 Glutose 40% Gel 15 Gm Tube PO 07/16/19 04:18 PRN PRN FOR BG < 50 IN ALERT PATIENT Protocol Guaifenesin 200 mg 06/16/19 04:19 Robitussin Syrup 200 Mg/10 Ml Ud Cup PO 07/16/19 04:18 Q4HP PRN COUGH Heparin Sodium (Porcine) 5,000 unit 06/16/19 06:00 06/16/19 06:21 Heparin Inj 5,000 Units/Ml 1 Ml Vial SUBCUT 07/16/19 05:59 5,000 unit Q8 CATHY Administration Hydralazine HCl 20 mg 06/16/19 06:23 Apresoline Inj/Pf 20 Mg/1 Ml Sdv IV 07/16/19 06:22 Q4HP PRN Give For Sbp > 160 / Dbp > 100 Insulin Human Regular 0 - 15 unit 06/16/19 04:19 Humulin R (Pyxis) Insulin 100 Unit/Ml 3ml SUBCUT 07/16/19 04:18 ACHSP PRN PER PROTOCOL Protocol Lorazepam 1 mg 06/16/19 04:19 Ativan Inj 2 Mg/1 Ml Vial IV 06/23/19 04:18 Q4HP PRN ANXIETY/AGITATION Magnesium Hydroxide 30 ml 06/16/19 04:10 Milk Of Magnesia 30 Ml Udcup PO 07/16/19 04:09 HSP PRN FOR CONSTIPATION Melatonin 6 mg 06/16/19 22:00 Melatonin 3 Mg Tablet PO 07/16/19 21:59 QHS [facility] Metoprolol Succinate 25 mg 06/16/19 10:00 Toprol Xl 25 Mg Tab.Sr PO 07/16/19 09:59 DAILY [facility] Metoprolol Tartrate 5 mg 06/16/19 06:24 Lopressor Inj/Pf 5 Mg/5 Ml Sdv IV 07/16/19 06:23 Q4HP PRN Give For Sbp > 160 / Dbp > 100 Nitroglycerin 1 gm 06/16/19 06:00 06/16/19 06:19 Nitrol 2% Ointment 1gm Packet TP 07/16/19 05:59 1 gm Q6 CATHY Administration Pantoprazole Sodium 40 mg 06/16/19 06:00 06/16/19 06:[address] Tablet PO 07/16/19 05:59 40 mg Q6AM CATHY Administration Promethazine HCl 25 mg 06/16/19 04:10 Phenergan Inj 25 Mg/1 Ml Vial IV 07/16/19 04:09 Q4HP PRN FOR NAUSEA/VOMITING Sodium Chloride 2.5 ml 06/16/19 06:00 06/16/19 06:20 Saline Flush 2.5 Ml Monoject Prefil Syrin IV 07/16/19 05:59 2.5 ml Q8 CATHY Administration Valsartan 320 mg 06/16/19 10:00 Diovan 160 Mg Tablet PO 07/16/19 09:59 DAILY [facility] Discontinued Medications Generic Name Dose Route Start Last Admin Trade Name Freq PRN Reason Stop Dose Admin Furosemide 40 mg 06/16/19 01:54 06/16/19 02:53 Lasix Inj/Pf 40 Mg/4 Ml Sdv IV 06/16/19 01:55 40 mg NOW ONE Administration Furosemide 40 mg 06/16/19 06:00 06/16/19 06:19 Lasix Inj/Pf 40 Mg/4 Ml Sdv IV 07/16/19 05:59 40 mg Q6 CATHY Administration Morphine Sulfate 3 mg 06/16/19 01:52 06/16/19 01:58 Morphine 10 Mg/Ml Inj IV 06/16/19 01:53 3 mg NOW ONE Administration Morphine Sulfate 2 mg 06/16/19 04:19 06/16/19 06:20 Morphine 10 Mg/Ml Inj IV 06/23/19 04:18 2 mg Q1HP PRN Administration Acute Severe Dyspnea Nitroglycerin 1 gm 06/16/19 01:51 06/16/19 01:59 Nitrol 2% Ointment 1gm Packet TP 06/16/19 01:52 1 gm NOW ONE Administration Nitroglycerin 1 tab 06/16/19 01:51 06/16/19 01:40 Nitrostat 0.4 Mg (1/150 Gr) Tabs 25/Bottle SL 1 tab ASDIR PRN Administration DIZZINESS Nitroglycerin 1 tab 06/16/19 02:07 06/16/19 02:53 Nitrostat 0.4 Mg (1/150 Gr) Tabs 25/Bottle SL 06/16/19 02:08 Not Given NOW ONE Ondansetron HCl 4 mg 06/16/19 01:52 06/16/19 01:57 Zofran Inj/Pf 4 Mg/2 Ml Sdv IV 06/16/19 01:53 4 mg NOW ONE Administration Impressions: Chest X-Ray 06/16/19 01:49 IMPRESSION: No significant change. Assessment & Plan - Diagnosis (1) Acute on chronic combined systolic and diastolic congestive heart failure Is this a current diagnosis for this admission?: Yes Plan: The patient is readmitted with acute exacerbation of his chronic heart failure with reduced ejection fraction and moderate respiratory distress. He has gained at least 4 kg since he was discharged on 06/09/2019 secondary to dietary noncompliance and likely uncontrolled hypertension. This morning he is hemodynamically stable and his telemetry is negative for complex atrial and ventricular dysrhythmias. Recommendations: -Continue with diuresis with Lasix IV 60 mg twice daily. -Restrict fluid intake to 1500 cc daily. -Nutrition consult for heart failure diet. -Daily weights and chart. -Strict intake and output. -Low-sodium diet. -Replace electrolytes as needed. -No need to repeat echocardiogram as he already had one approximately 1 or 2 months ago. -We will continue to follow-up with you. (2) Chronic kidney disease, stage III (moderate) Is this a current diagnosis for this admission?: Yes Plan: His renal function is improved since the prior visit. Nephrology consult has been already requested. Recommendations: -Continue with diuresis. -Nephrology consult as requested. (3) ETOH abuse Plan: he patient is not exhibiting any obvious signs of withdrawal at this point. Recommendations: -Continue to monitor for withdrawal symptoms. (4) Hypertension Qualifiers: Hypertension type: essential hypertension Qualified Code(s): I10 - Essential (primary) hypertension Is this a current diagnosis for this admission?: Yes Plan: The patient continues to be hypertensive which increases his risk of heart failure exacerbation/decompensation. Recommendations: -Discontinue Nitropatch. -Discontinue Lopressor. -Start carvedilol 12.5 mg p.o. twice daily first dose now.
[2019-06-16] MEDS: AMLODIPINE BESYLATE 10 MG TABLET PO SCH (09:23)
[2019-06-16] MEDS: CLOPIDOGREL BISULFATE 75 MG TABLET PO SCH (09:23)
[2019-06-16] MEDS: DOCUSATE SODIUM 100 MG CAPSULE PO SCH (09:23)
[2019-06-16] MEDS: FUROSEMIDE INJ/PF 40 MG/4 ML SDV IV SCH ×2 (09:24→17:11)
[2019-06-16] MEDS: GLIPIZIDE XL 5 MG TAB.ER.24 PO SCH (09:24)
[2019-06-16] MEDS: ASPIRIN 81 MG TABLET, ENT COATED PO SCH (09:24)
[2019-06-16] MEDS ORDERED: METOPROLOL SUCCINATE 25 MG TAB.SR.24H PO SCH (10:00)
[2019-06-16] MEDS ORDERED: VALSARTAN 160 MG TABLET PO SCH (10:00)
[2019-06-16 11:38] LABS: CREATINE KINASE MB 2.71 ng/mL (<4.55); TROPONIN I 0.071 ng/mL
[2019-06-16] MEDS: CARVEDILOL 12.5 MG TABLET PO SCH ×2 (12:34→22:02)
[2019-06-16 13:11] LABS: BLOOD UREA NITROGEN 25 mg/dL (7-20); CALCIUM 8.6 mg/dL (8.4-10.2); GLUCOSE 117 mg/dL (75-110)
[2019-06-16 13:16] LABS: CARBON DIOXIDE 30 mmol/L (22-30); CHLORIDE 103 mmol/L (98-107)
[2019-06-16 13:20] LABS: ANION GAP 4 (5-19)
[2019-06-16 16:54] LABS: CREATINE KINASE MB 2.8 ng/mL (<4.55); TROPONIN I 0.074 ng/mL
--- NOTE | 2019-06-16 17:05 | PDOC CONSULTATION ---
Consultation Consult Date: 06/16/19 Provider Consulted: Barrett SHEA Consult reason:: Acute on chronic kidney disease stage IV. History of Present Illness Admission Date/PCP: 06/16/19 03:27 JADIEL SHARPE MD History of Present Illness: JARED HORVATH JR is a 58 year old male with history of longstanding poorly controlled diabetes mellitus, CKD stage IV with a base creatinine between 3 and 3.5,heart failure with reduced ejection fraction, stage secondary to dilated cardiomyopathy, moderate to severe pulmonary hypertension, hypertension, alcohol abuse was admitted with history and symptoms suggestive of progressive congestive heart failure over the last few days finally resulting in orthpnea. He has had multiple admissions in the last couple of months with similar presentation. The patient denies any history of chest pains. He admits to severe excessive usage of salt especially in the current quarantine stage of the coronavirus pandemic and his son has come from [place] and taken over the cooking duties. Patient states with current medications already administered he is feeling a whole lot better since he has been admitted. Labs and medications were reviewed. His current creatinine is quite stable compared to his baseline,obviously hemodiluted. Past Medical History Cardiac Medical History: Reports: CHF-Diastolic, CHF-Systolic, Hyperlipidemia, Hypertension-primary, Peripheral Vascular Disease, Pulmonary Hypertension Denies: Atrial Fibrillation, Coronary Artery Disease, DVT, Myocardial Infarction, Pulmonary Embolism Pulmonary Medical History: Reports: Pneumonia, Respiratory Failure Denies: Asthma, Bronchitis, Chronic Obstructive Pulmonary Disease (COPD), Tuberculosis EENT Medical History: Denies: Cataracts, Ears - Hearing aids Neurological Medical History: Denies: Hemorrhagic CVA, Ischemic CVA, Seizures Endocrine Medical History: Reports: Diabetes Mellitus Type 2, Obesity Denies: Diabetes Mellitus Type 1, Hyperthyroidism, Hypothyroidism Complications of Diabetes: Reports: None, Autonomic Neuropathy, Nephropathy Renal/ Medical History: Reports: Chronic Kidney Disease Stage IV, Hyperkalemia, Hyperphosphatemia Denies: Benign Prostatic Hyperplasia, End Stage Renal Disease, Nephrolithiasis Malignancy Medical History: Reports: None GI Medical History: Reports: Gastroesophageal Reflux Disease Denies: Cirrhosis, Crohn's Disease, Hepatitis, Peptic Ulcer Disease, Ulcerative Colitis Musculoskeltal Medical History: Reports: Arthritis Denies: Gout Skin Medical History: Denies: Eczema, Psoriasis Psychiatric Medical History: Reports: Alcohol Dependency Denies: Bipolar Disorder, Depression, Substance Abuse, Tobacco Dependency Traumatic Medical History: Reports: None Infectious Medical History: Reports: None Past Surgical History Past Surgical History: Reports: Orthopedic Surgery - 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 Social History Lives with: Spouse/Significant other Smoking Status: Never Smoker Electronic Cigarette use?: No Frequency of Alcohol Use: Heavy Hx Recreational Drug Use: No Drugs: None Hx Prescription Drug Abuse: No - Advance Directive Resuscitation Status: Full Code Family History Parental Family History Reviewed: No Children Family History Reviewed: No Sibling(s) Family History Reviewed.: No Medication/Allergy Home Medications: Aspirin [Ecotrin 81 mg EC Tablet] 81 mg PO DAILY 12/12/18 Atorvastatin Calcium [Lipitor 40 mg Tablet] 40 mg PO QHS 12/12/18 Amlodipine Besylate [Norvasc 10 mg Tablet] 10 mg PO DAILY #30 tablet 12/15/18 Metoprolol Succinate [Toprol Xl 25 mg Tab.sr] 25 mg PO DAILY 05/02/19 Torsemide [Demadex 20 mg Tablet] 20 mg PO BID 05/02/19 Valsartan 320 mg PO DAILY 05/02/19 Ergocalciferol (Vitamin D2) [Drisdol 50,000 unit (1.25MG) Capsule] 50,000 unit PO MO 06/04/19 Furosemide [Lasix 40 mg Tablet] 40 mg PO QAM 06/04/19 Melatonin [Melatonin 3 mg Tablet] 6 mg PO QHS #60 tablet 06/08/19 Albuterol Sulfate [Proair Hfa Inhalation Aerosol 8.5 gm Mdi] 1 puff IH Q4HP PRN 06/16/19 Glipizide [Glipizide Xl] 10 mg PO DAILY 06/16/19 Allergies/Adverse Reactions: No Known Allergies Allergy (Verified 06/10/18 17:31) Review of Systems Constitutional: PRESENT: fatigue, weakness. ABSENT: chills, fever(s), headache(s), night sweats Nose, Mouth, and Throat: ABSENT: mouth pain, sore throat Cardiovascular: PRESENT: dyspnea on exertion, edema, orthropnea, palpitations. ABSENT: chest pain Respiratory: PRESENT: dyspnea. ABSENT: cough, hemoptysis Gastrointestinal: ABSENT: diarrhea Genitourinary: ABSENT: dysuria, hematuria Musculoskeletal: ABSENT: deformity Integumentary: ABSENT: pruritus, rash Neurological: ABSENT: abnormal gait, abnormal speech, focal weakness, frequent falls Hematologic/Lymphatic: ABSENT: easy bruising, lymphadenopathy Physical Exam Vital Signs: Temp Pulse Resp BP Pulse Ox 97.7 F 79 18 158/86 H 93 06/16/19 07:14 06/16/19 07:14 06/16/19 07:14 06/16/19 07:14 06/16/19 07:14 Intake & Output 06/15/19 06/16/19 06/17/19 06:59 06:59 06:59 Output Total 250 Balance -250 Weight 123 kg General appearance: PRESENT: no acute distress Eye exam: PRESENT: EOMI, PERRLA. ABSENT: scleral icterus Ear exam: PRESENT: normal external ear exam Mouth exam: PRESENT: moist, neck supple Neck exam: ABSENT: lymphadenopathy, meningismus, tenderness, thyromegaly, tracheal deviation Respiratory exam: PRESENT: clear to auscultation liseth. ABSENT: crackles Cardiovascular exam: PRESENT: +S1, +S2 GI/Abdominal exam: PRESENT: normal bowel sounds, soft. ABSENT: ascites, organomegaly, tenderness Extremities exam: PRESENT: +1 edema. ABSENT: calf tenderness Neurological exam: PRESENT: alert, awake, oriented to person, oriented to place Psychiatric exam: PRESENT: appropriate affect Skin exam: ABSENT: cyanosis, erythema, mottled, rash Results Laboratory Results: 06/16/19 01:35 06/16/19 01:35 06/16/19 06/16/19 06/16/19 01:35 01:35 01:35 WBC 7.3 RBC 3.51 L Hgb 10.7 L Hct 31.4 L MCV 89 MCH 30.4 MCHC 34.0 RDW 16.2 H Plt Count 373 Seg Neutrophils % 71.9 VBG pH 7.41 VBG pCO2 44.4 VBG HCO3 27.5 VBG Base Excess 2.5 Sodium 137.1 Potassium 3.9 Chloride 102 Carbon Dioxide 28 Anion Gap 7 BUN 26 H Creatinine 2.78 H Est GFR ( Amer) 28 L Glucose 228 H Calcium 8.9 Total Bilirubin 0.6 AST 26 Alkaline Phosphatase 122 Total Protein 7.3 Albumin 3.3 L 06/16/19 06/16/19 06/16/19 01:35 06:06 06:06 Creatine Kinase 277 H CK-MB (CK-2) 3.43 Troponin I 0.025 0.054 NT-Pro-B Natriuret Pep 3390 H 04/21/20 04/21/20 10:30 10:30 Creatine Kinase 226 H CK-MB (CK-2) 2.71 Troponin I 0.071 NT-Pro-B Natriuret Pep Impressions: Chest X-Ray 06/16/19 01:49 IMPRESSION: No significant change. Assessment & Plan - Diagnosis (1) Acute on chronic combined systolic and diastolic congestive heart failure Is this a current diagnosis for this admission?: Yes Plan: Acute on chronic decompensated biventricular heart failure. Advised proper dietary modifications. Patient currently better and cardiology following. (2) Chronic kidney disease, stage IV (severe) Is this a current diagnosis for this admission?: Yes Plan: Patient has got underlying diabetic kidney disease stage IV with base creatinine of 3-3.5. Presently he is in fluid overload therefore diluting his creatinine values. Patient does not show any signs of uremia. No acute indications for renal replacements. He needs to get his prerenal issues under adequate control and stabilized otherwise he will unfortunately find himself in dire straits regarding his kidney functions sooner than later. (3) Hypertension Qualifiers: Hypertension type: essential hypertension Qualified Code(s): I10 - Essential (primary) hypertension Is this a current diagnosis for this admission?: Yes Plan: Under fairly good control. Again advised on dietary modifications. (4) Diabetes mellitus type 2 in obese Is this a current diagnosis for this admission?: Yes Plan: Advised tight control
[2019-06-16] MEDS: INSULIN REG, HUMAN 100 UNIT/ML 3 ML VIAL (PYX) SUBCUT PRN (22:01)
[2019-06-16] MEDS: ATORVASTATIN CALCIUM 40 MG TABLET PO SCH (22:02)
[2019-06-16] MEDS: MELATONIN 3 MG TABLET PO SCH (22:02)
[2019-06-17 05:44] LABS: ANION GAP 6 (5-19); BLOOD UREA NITROGEN 27 mg/dL (7-20); CALCIUM 8.4 mg/dL (8.4-10.2); CARBON DIOXIDE 26 mmol/L (22-30); CHLORIDE 104 mmol/L (98-107); GLUCOSE 116 mg/dL (75-110); POTASSIUM 4.1 mmol/L (3.6-5.0)
[2019-06-17 05:45] LABS: ABSOLUTE BASOPHILS # (AUTO) 0.1 10^3/uL (0.0-0.2); ABSOLUTE EOSINOPHILS # (AUTO) 0.1 10^3/uL (0.0-0.6); ABSOLUTE LYMPHOCYTES (AUTO) 0.9 10^3/uL (0.5-4.7); ABSOLUTE MONOCYTES (AUTO) 0.5 10^3/uL (0.1-1.4); BASOPHILS % (AUTO) 0.7 % (0-2); EOSINOPHILS % (AUTO) 1.2 % (0-6); HEMATOCRIT 26.5 % (37.9-51.0); HEMOGLOBIN 9.1 g/dL (13.5-17.0); LYMPHOCYTES % (AUTO) 8.8 % (13-45); MEAN CORPUSCULAR HEMOGLOBIN 30.3 pg (27.0-33.4); MEAN CORPUSCULAR HGB CONC 34.3 g/dL (32.0-36.0); MEAN CORPUSCULAR VOLUME 88 fl (80-97); PLATELET COUNT 309 10^3/uL (150-450); RED CELL DISTRIBUTION WIDTH 16.3 % (11.5-14.0); SEGMENTED NEUTROPHILS % (AUTO) 84.3 % (42-78); TOTAL CELLS COUNTED % (AUTO) 100 %; WHITE BLOOD COUNT 10.7 10^3/uL (4.0-10.5)
[2019-06-17] MEDS: HEPARIN SOD (PORCINE) 5,000 UNIT/ML 1 ML VIAL SUBCUT SCH ×3 (05:52→21:42)
[2019-06-17] MEDS: PANTOPRAZOLE SODIUM 40 MG TABLET.DR PO SCH (05:52)
--- NOTE | 2019-06-17 07:24 | EKG REPORT ---
SEVERITY:- ABNORMAL ECG - SINUS RHYTHM PROBABLE LEFT ATRIAL ABNORMALITY LVH WITH SECONDARY REPOLARIZATION ABNORMALITY PROLONGED QT INTERVAL : Confirmed by: Anthony Wolfe 17-Jun-2019 07:23:32
--- NOTE | 2019-06-17 08:27 | PDOC PROGRESS REPORT ---
Subjective Progress Note for:: 06/17/19 Subjective:: JARED HORVATH JR is a 58 year old male with history of heart failure with reduced ejection fraction, stage III-IV CKD, chronic lower extremity edema, dilated cardiomyopathy, moderate to severe pulmonary hypertension, essential hypertension, type 2 diabetes, alcohol abuse who is consulted to cardiology for further evaluation and management of heart failure. The patient was admitted to this facility 05/02/2019 through 05/08/2019 at which time he was intubated due to severe respiratory failure. He was readmitted 06/04/2019 through 06/09/2019 with hypertensive urgency, heart failure and respiratory infection as well as COPD exacerbation. He was diuresed appropriately and was discharged. Unfortunately, he now presents again to the emergency room with complaints of severe shortness of breath and weight gain. In the emergency room he was treated with BiPAP and IV diuresis with adequate response. This morning the patient is found resting comfortably in bed and without cardiovascular complaints. Unfortunately he admits to a high sodium diet that includes pasta, sauces and other processed foods such as cheese, carroll as well as canned goods. 06/17/2019: This morning the patient is found sitting up in his recliner. He said he had trouble sleeping last night and was short of breath. His telemetry shows normal sinus rhythm without complex atrial or ventricular dysrhythmias. Physical exam on 06/17/2019: GENERAL: Pleasant, no respiratory distress, oriented x3 with normal mood. Well developed. HEENT: Normocephalic, atraumatic. Pupils equal. Sclerae anicteric. Oropharynx moist. NECK: Difficult to evaluate for JVD due to his body habitus. No carotid bruits. LUNGS: Very mild crackles all the way up to the apex of both lungs. CARDIOVASCULAR: Regular rate and rhythm, normal S1 and S2 without murmurs, rubs, or gallops. PMI not displaced. ABDOMEN: No masses or tenderness to palpation. No bruit. No splenomegaly or hepatomegaly. No abdominal aorta bruit noted. EXTREMITIES: 2+ pitting edema bilaterally, no cyanosis, no clubbing. Difficult to palpate pulses due to his body habitus and lower extremity edema. MUSCULOSKELETAL: No chest tenderness to palpation. NEUROLOGIC: Nonfocal. No gross sensory or motor deficits bilateral upper or lower extremities. Cardiac studies: Echocardiogram on 05/04/2019 at [facility]: -Mild to moderate LVE. -Mild concentric LVH. -EF 40 to 45%. -Grade 1 diastolic dysfunction. -Global hypokinesis. -Mild biatrial enlargement. -Mild MAC without stenosis. -Trace MR, mild TR. -Moderate to severe pulmonary hypertension with pressures between 55 and 60 mmHg. Reason For Visit: ACUTE PULMONARY EDEMA WITH CHF,ACUTE RESPIRATORY Physical Exam Vital Signs: Temp Pulse Resp BP Pulse Ox 98.5 F 87 21 H 141/82 H 94 06/17/19 07:12 06/17/19 07:12 06/17/19 07:12 06/17/19 07:12 06/17/19 07:12 Intake & Output 06/16/19 06/17/19 06/18/19 06:59 06:59 06:59 Intake Total 1650 Output Total 250 1200 Balance -250 450 Weight 123 kg 120.3 kg Results Laboratory Results: 06/17/19 05:04 06/17/19 05:04 06/16/19 06/17/19 06/17/19 12:20 05:04 05:04 WBC 10.7 H RBC 3.00 L Hgb 9.1 L Hct 26.5 L MCV 88 MCH 30.3 MCHC 34.3 RDW 16.3 H Plt Count 309 Seg Neutrophils % 84.3 H Sodium 136.8 L 135.5 L Potassium 4.0 4.1 Chloride 103 104 Carbon Dioxide 30 26 Anion Gap 4 L 6 BUN 25 H 27 H Creatinine 2.91 H 3.19 H Est GFR ( Amer) 27 L 24 L Glucose 117 H 116 H Calcium 8.6 8.4 Magnesium 1.9 06/16/19 06/16/19 06/16/19 01:35 06:06 06:06 Creatine Kinase 277 H CK-MB (CK-2) 3.43 Troponin I 0.025 0.054 NT-Pro-B Natriuret Pep 3390 H 06/16/19 06/16/19 06/16/19 10:30 10:30 16:14 Creatine Kinase 226 H 215 H CK-MB (CK-2) 2.71 Troponin I 0.071 NT-Pro-B Natriuret Pep 06/16/19 16:14 Creatine Kinase CK-MB (CK-2) 2.80 Troponin I 0.074 NT-Pro-B Natriuret Pep Impressions: Chest X-Ray 06/16/19 01:49 IMPRESSION: No significant change. 06/17/19 05:04 06/17/19 05:04 MCV 88 fl (80-97) 06/17/19 05:04 MCH 30.3 pg (27.0-33.4) 06/17/19 05:04 MCHC 34.3 g/dL (32.0-36.0) 06/17/19 05:04 RDW 16.3 % (11.5-14.0) H 06/17/19 05:04 Seg Neutrophils % 84.3 % (42-78) H 06/17/19 05:04 VBG pH 7.41 (7.30-7.42) 06/16/19 01:35 VBG pCO2 44.4 mmHg (35-63) 06/16/19 01:35 VBG HCO3 27.5 mmol/L (20-32) 06/16/19 01:35 VBG Base Excess 2.5 mmol/L 06/16/19 01:35 Chloride 104 mmol/L (98-107) 06/17/19 05:04 Carbon Dioxide 26 mmol/L (22-30) 06/17/19 05:04 Anion Gap 6 (5-19) 06/17/19 05:04 Est GFR ( Amer) 24 (>60) L 06/17/19 05:04 Glucose 116 mg/dL (75-110) H 06/17/19 05:04 Calcium 8.4 mg/dL (8.4-10.2) 06/17/19 05:04 Magnesium 1.9 mg/dL (1.6-2.3) 06/17/19 05:04 Total Bilirubin 0.6 mg/dL (0.2-1.3) 06/16/19 01:35 AST 26 U/L (17-59) 06/16/19 01:35 Alkaline Phosphatase 122 U/L (38-126) 06/16/19 01:35 Total Protein 7.3 g/dL (6.3-8.2) 06/16/19 01:35 Albumin 3.3 g/dL (3.5-5.0) L 06/16/19 01:35 06/16/19 06/16/19 06/16/19 01:35 06:06 06:06 Creatine Kinase 277 H CK-MB (CK-2) 3.43 Troponin I 0.025 0.054 NT-Pro-B Natriuret Pep 3390 H 06/16/19 06/16/19 06/16/19 10:30 10:30 16:14 Creatine Kinase 226 H 215 H CK-MB (CK-2) 2.71 Troponin I 0.071 NT-Pro-B Natriuret Pep 06/16/19 16:14 Creatine Kinase CK-MB (CK-2) 2.80 Troponin I 0.074 NT-Pro-B Natriuret Pep Current Medication List Generic Name Dose Route Start Last Admin Trade Name Freq PRN Reason Stop Dose Admin Acetaminophen 650 mg 06/16/19 04:10 Tylenol 325 Mg Tablet PO 07/16/19 04:09 Q4HP PRN pain or temp greater than 101F Al Hydrox/Mg Hydrox/Simethicone 30 ml 06/16/19 04:10 Maalox Plus Susp 30 Udcup PO 07/16/19 04:09 Q4HP PRN HEARTBURN Amlodipine Besylate 10 mg 06/16/19 10:00 06/16/19 09:23 Norvasc 10 Mg Tablet PO 07/16/19 09:59 10 mg DAILY CATHY Administration Aspirin 81 mg 06/16/19 10:00 06/16/19 09:24 Ecotrin 81 Mg Ec Tablet PO 07/16/19 09:59 81 mg DAILY CATHY Administration Atorvastatin Calcium 40 mg 06/16/19 22:00 06/16/19 22:02 Lipitor 40 Mg Tablet PO 07/16/19 21:59 40 mg QHS CATHY Administration Carvedilol 12.5 mg 06/16/19 10:00 06/16/19 22:02 Coreg 12.5 Mg Tablet PO 07/16/19 09:59 12.5 mg Q12 CATHY Administration Clopidogrel Bisulfate 75 mg 06/16/19 10:00 06/16/19 09:23 Plavix 75 Mg Tablet PO 07/16/19 09:59 75 mg DAILY CATHY Administration Dextrose 12.5 gm 06/16/19 04:19 Dextrose Inj 50% Syringe (25 Gm/50 Ml) IV 07/16/19 04:18 PRN PRN FOR BG 50-69 IN ALERT PATIENT Protocol Dextrose 25 gm 06/16/19 04:19 Dextrose Inj 50% Syringe (25 Gm/50 Ml) IV 07/16/19 04:18 PRN PRN PER PROTOCOL Protocol Docusate Sodium 100 mg 06/16/19 10:00 06/16/19 09:23 Colace 100 Mg Capsule PO 07/16/19 09:59 100 mg DAILY CATHY Administration Ergocalciferol 50,000 unit 06/22/19 08:45 Drisdol 50,000 Unit (1.25mg) Capsule PO 07/22/19 08:44 MO CATHY Furosemide 80 mg 06/17/19 10:00 Lasix Inj/Pf 40 Mg/4 Ml Sdv IV 07/17/19 09:59 BID CATHY Glipizide 10 mg 06/16/19 10:00 06/16/19 09:24 Glucotrol Xl 5 Mg Tab.Er PO 07/16/19 09:59 10 mg DAILY CATHY Administration Glucagon 1 mg 06/16/19 04:19 Glucagen Inj 1 Mg Vial IM 07/16/19 04:18 PRN PRN Evaluate for BG < 70 Protocol Glucose 15 gm 06/16/19 04:19 Glutose 40% Gel 15 Gm Tube PO 07/16/19 04:18 PRN PRN FOR BG 50-69 IN ALERT PATIENT Protocol Glucose 30 gm 06/16/19 04:19 Glutose 40% Gel 15 Gm Tube PO 07/16/19 04:18 PRN PRN FOR BG < 50 IN ALERT PATIENT Protocol Guaifenesin 200 mg 06/16/19 04:19 Robitussin Syrup 200 Mg/10 Ml Ud Cup PO 07/16/19 04:18 Q4HP PRN COUGH Heparin Sodium (Porcine) 5,000 unit 06/16/19 06:00 06/17/19 05:52 Heparin Inj 5,000 Units/Ml 1 Ml Vial SUBCUT 07/16/19 05:59 5,000 unit Q8 CATHY Administration Hydralazine HCl 20 mg 06/16/19 06:23 Apresoline Inj/Pf 20 Mg/1 Ml Sdv IV 07/16/19 06:22 Q4HP PRN Give For Sbp > 160 / Dbp > 100 Insulin Human Regular 0 - 15 unit 06/16/19 04:19 06/16/19 22:01 Humulin R (Pyxis) Insulin 100 Unit/Ml 3ml SUBCUT 07/16/19 04:18 3 unit ACHSP PRN Administration PER PROTOCOL Protocol Isosorbide Mononitrate 60 mg 06/17/19 10:00 Imdur 60 Mg Tablet.Er PO 07/17/19 09:59 DAILY CATHY Lorazepam 1 mg 06/16/19 04:19 Ativan Inj 2 Mg/1 Ml Vial IV 06/23/19 04:18 Q4HP PRN ANXIETY/AGITATION Magnesium Hydroxide 30 ml 06/16/19 04:10 Milk Of Magnesia 30 Ml Udcup PO 07/16/19 04:09 HSP PRN FOR CONSTIPATION Melatonin 6 mg 06/16/19 22:00 06/16/19 22:02 Melatonin 3 Mg Tablet PO 07/16/19 21:59 6 mg QHS CATHY Administration Metoprolol Tartrate 5 mg 06/16/19 06:24 Lopressor Inj/Pf 5 Mg/5 Ml Sdv IV 07/16/19 06:23 Q4HP PRN Give For Sbp > 160 / Dbp > 100 Pantoprazole Sodium 40 mg 06/16/19 06:00 06/17/19 05:[address] Tablet PO 07/16/19 05:59 40 mg Q6AM CATHY Administration Promethazine HCl 25 mg 06/16/19 04:10 Phenergan Inj 25 Mg/1 Ml Vial IV 07/16/19 04:09 Q4HP PRN FOR NAUSEA/VOMITING Sodium Chloride 2.5 ml 06/16/19 06:00 06/17/19 05:52 Saline Flush 2.5 Ml Monoject Prefil Syrin IV 07/16/19 05:59 2.5 ml Q8 CATHY Administration Discontinued Medications Generic Name Dose Route Start Last Admin Trade Name Freq PRN Reason Stop Dose Admin Furosemide 40 mg 06/16/19 01:54 06/16/19 02:53 Lasix Inj/Pf 40 Mg/4 Ml Sdv IV 06/16/19 01:55 40 mg NOW ONE Administration Furosemide 40 mg 06/16/19 06:00 06/16/19 06:19 Lasix Inj/Pf 40 Mg/4 Ml Sdv IV 07/16/19 05:59 40 mg Q6 CATHY Administration Furosemide 60 mg 06/16/19 10:00 06/16/19 17:11 Lasix Inj/Pf 40 Mg/4 Ml Sdv IV 07/16/19 09:59 60 mg BID CATHY Administration Metoprolol Succinate 25 mg 06/16/19 10:00 06/16/19 09:23 Toprol Xl 25 Mg Tab.Sr PO 07/16/19 09:30 25 mg DAILY CATHY Administration Morphine Sulfate 3 mg 06/16/19 01:52 06/16/19 01:58 Morphine 10 Mg/Ml Inj IV 06/16/19 01:53 3 mg NOW ONE Administration Morphine Sulfate 2 mg 06/16/19 04:19 06/16/19 06:20 Morphine 10 Mg/Ml Inj IV 06/23/19 04:18 2 mg Q1HP PRN Administration Acute Severe Dyspnea Nitroglycerin 1 gm 06/16/19 01:51 06/16/19 01:59 Nitrol 2% Ointment 1gm Packet TP 06/16/19 01:52 1 gm NOW ONE Administration Nitroglycerin 1 tab 06/16/19 01:51 06/16/19 01:40 Nitrostat 0.4 Mg (1/150 Gr) Tabs 25/Bottle SL 1 tab ASDIR PRN Administration DIZZINESS Nitroglycerin 1 tab 06/16/19 02:07 06/16/19 02:53 Nitrostat 0.4 Mg (1/150 Gr) Tabs 25/Bottle SL 06/16/19 02:08 Not Given NOW ONE Nitroglycerin 1 gm 06/16/19 06:00 06/16/19 12:34 Nitrol 2% Ointment 1gm Packet TP 07/16/19 09:30 1 gm Q6 CATHY Administration Ondansetron HCl 4 mg 06/16/19 01:52 06/16/19 01:57 Zofran Inj/Pf 4 Mg/2 Ml Sdv IV 06/16/19 01:53 4 mg NOW ONE Administration Valsartan 320 mg 06/16/19 10:00 06/16/19 09:24 Diovan 160 Mg Tablet PO 07/16/19 09:59 320 mg DAILY CATHY Administration Assessment & Plan - Diagnosis (1) Acute on chronic combined systolic and diastolic congestive heart failure Plan: Unfortunately the patient continues to be fluid overloaded and his crackles now extend up to the apex of both lungs. He exceeded his fluid intake of 1500 cc or less yesterday. It is very important to fluid restrict this patient. Recommendations: -Agree with increasing diuresis with Lasix 80 mg twice daily. -If no appropriate response with above dose of Lasix please add metolazone 5 mg daily 30 minutes prior to IV Lasix dose. -Restrict fluid intake to 1500 cc daily. -Daily weights and chart. -Strict intake and output. -Low-sodium diet. -Replace electrolytes as needed. -No need to repeat echocardiogram as he already had one approximately 1 or 2 months ago. -We will continue to follow-up with you. (2) Chronic kidney disease, stage III (moderate) Is this a current diagnosis for this admission?: Yes Plan: His renal function is now returning to his baseline. We appreciate very much nephrology input. Recommendations: -Continue with diuresis. -Continue to follow-up with nephrology. (3) ETOH abuse Plan: The patient is not exhibiting any obvious signs of withdrawal at this point. Recommendations: -Continue to monitor for withdrawal symptoms. (4) Hypertension Qualifiers: Hypertension type: essential hypertension Qualified Code(s): I10 - Essential (primary) hypertension Is this a current diagnosis for this admission?: Yes Plan: His blood pressure is slightly improved. Recommendations: -Continue with current medical management for now. -We will consider increasing Coreg to 25 mg twice daily in the next few days if blood pressure not at goal of 130/80 or below.
[2019-06-17] MEDS ORDERED: FUROSEMIDE INJ/PF 40 MG/4 ML SDV IV SCH (10:00)
[2019-06-17] MEDS: DOCUSATE SODIUM 100 MG CAPSULE PO SCH (10:29)
[2019-06-17] MEDS: CARVEDILOL 12.5 MG TABLET PO SCH ×2 (10:29→21:41)
[2019-06-17] MEDS: ISOSORBIDE MONONITRATE 60 MG TAB.ER.24H PO SCH (10:29)
[2019-06-17] MEDS: GLIPIZIDE XL 5 MG TAB.ER.24 PO SCH (10:29)
[2019-06-17] MEDS: ASPIRIN 81 MG TABLET, ENT COATED PO SCH (10:29)
[2019-06-17] MEDS: AMLODIPINE BESYLATE 10 MG TABLET PO SCH (10:30)
[2019-06-17] MEDS: CLOPIDOGREL BISULFATE 75 MG TABLET PO SCH (10:30)
--- NOTE | 2019-06-17 12:49 | PDOC PROGRESS REPORT ---
Subjective Progress Note for:: 06/17/19 Subjective:: Patient still having shortness of breath. Denies any chest pain. Patient states that he had been voiding in the bathroom occasionally and not always in the urinal bottle. Reason For Visit: ACUTE PULMONARY EDEMA WITH CHF,ACUTE RESPIRATORY Physical Exam Vital Signs: Temp Pulse Resp BP Pulse Ox 98.2 F 84 16 145/76 H 96 06/17/19 11:23 06/17/19 11:23 06/17/19 11:23 06/17/19 11:23 06/17/19 11:23 Intake & Output 06/16/19 06/17/19 06/18/19 06:59 06:59 06:59 Intake Total 1650 240 Output Total 250 1200 475 Balance -250 450 -235 Weight 123 kg 120.3 kg General appearance: PRESENT: no acute distress, cooperative Neck exam: ABSENT: JVD Respiratory exam: PRESENT: crackles - Bilateral, unlabored. ABSENT: tachypnea, wheezes Cardiovascular exam: PRESENT: RRR, +S1, +S2. ABSENT: tachycardia GI/Abdominal exam: PRESENT: soft. ABSENT: rebound, rigid, tenderness Extremities exam: PRESENT: pedal edema, +2 edema Neurological exam: PRESENT: alert, awake, oriented to person, oriented to place, oriented to time, oriented to situation Results Laboratory Results: 06/17/19 05:04 06/17/19 05:04 06/16/19 06/17/19 06/17/19 12:20 05:04 05:04 WBC 10.7 H RBC 3.00 L Hgb 9.1 L Hct 26.5 L MCV 88 MCH 30.3 MCHC 34.3 RDW 16.3 H Plt Count 309 Seg Neutrophils % 84.3 H Sodium 136.8 L 135.5 L Potassium 4.0 4.1 Chloride 103 104 Carbon Dioxide 30 26 Anion Gap 4 L 6 BUN 25 H 27 H Creatinine 2.91 H 3.19 H Est GFR ( Amer) 27 L 24 L Glucose 117 H 116 H Calcium 8.6 8.4 Magnesium 1.9 06/16/19 06/16/19 06/16/19 01:35 06:06 06:06 Creatine Kinase 277 H CK-MB (CK-2) 3.43 Troponin I 0.025 0.054 NT-Pro-B Natriuret Pep 3390 H 06/16/19 06/16/19 06/16/19 10:30 10:30 16:14 Creatine Kinase 226 H 215 H CK-MB (CK-2) 2.71 Troponin I 0.071 NT-Pro-B Natriuret Pep 06/16/19 16:14 Creatine Kinase CK-MB (CK-2) 2.80 Troponin I 0.074 NT-Pro-B Natriuret Pep Impressions: Chest X-Ray 06/16/19 01:49 IMPRESSION: No significant change. Assessment and Plan - Diagnosis (1) Acute on chronic combined systolic and diastolic congestive heart failure Is this a current diagnosis for this admission?: Yes Plan: Echo on last visit 04/2019 showing EF of 40 to 45% with grade 1/4 diastolic dysfunction, concentric LVH RVSP 55 to 60 mmHg Will need optimal blood pressure control and diuresis. Fluid restriction. Toprol-XL was changed to Coreg. Noted to be net positive fluid balance yesterday suggesting either inadequate diuresis or inaccurate I's and O's. Lasix dose increased to 80 mg IV twice daily. Patient given strict instructions to only urinate in the urinal bottle in order for accurate I's and O's. (2) Acute respiratory failure with hypoxia Is this a current diagnosis for this admission?: Yes Plan: Likely secondary to pulmonary edema from decompensated heart failure. Hopefully will be able to wean oxygen with effective diuresis. (3) Diabetes mellitus type 2 in obese Is this a current diagnosis for this admission?: Yes Plan: Continue glipizide. Carb restricted diet. Sliding scale insulin. (4) Chronic kidney disease, stage IV (severe) Is this a current diagnosis for this admission?: Yes Plan: Nephrology following. Avoid nephrotoxic meds. Baseline noted of 3-3.5. (5) Hypertension Qualifiers: Hypertension type: essential hypertension Qualified Code(s): I10 - Essential (primary) hypertension Is this a current diagnosis for this admission?: Yes Plan: Still poorly controlled. Reduce dose of valsartan to 160 mg daily. Continue amlodipine. Imdur added. Lasix increased. - Time Time Spent with patient: Less than 15 minutes
[2019-06-17] MEDS: VALSARTAN 160 MG TABLET PO SCH (13:21)
[2019-06-17] MEDS ORDERED: METOLAZONE 5 MG TABLET PO ONE (18:00)
[2019-06-17] MEDS: FUROSEMIDE INJ/PF 100 MG/10 ML SDV IV SCH (18:07)
[2019-06-17] MEDS: ATORVASTATIN CALCIUM 40 MG TABLET PO SCH (21:41)
[2019-06-17] MEDS: MELATONIN 3 MG TABLET PO SCH (21:41)
[2019-06-18 05:41] LABS: ABSOLUTE EOSINOPHILS # (AUTO) 0.1 10^3/uL (0.0-0.6); ABSOLUTE LYMPHOCYTES (AUTO) 1.1 10^3/uL (0.5-4.7); ABSOLUTE MONOCYTES (AUTO) 0.6 10^3/uL (0.1-1.4); ABSOLUTE NEUT (AUTO) 7.5 10^3/uL (1.7-8.2); BASOPHILS % (AUTO) 0.4 % (0-2); EOSINOPHILS % (AUTO) 1.3 % (0-6); HEMATOCRIT 22.1 % (37.9-51.0); LYMPHOCYTES % (AUTO) 11.6 % (13-45); MEAN CORPUSCULAR HEMOGLOBIN 30.7 pg (27.0-33.4); MEAN CORPUSCULAR VOLUME 88 fl (80-97); MONOCYTES % (AUTO) 6.5 % (3-13); PLATELET COUNT 261 10^3/uL (150-450); RED BLOOD COUNT 2.52 10^6/uL (4.35-5.55); RED CELL DISTRIBUTION WIDTH 16.5 % (11.5-14.0); SEGMENTED NEUTROPHILS % (AUTO) 80.2 % (42-78); TOTAL CELLS COUNTED % (AUTO) 100 %; WHITE BLOOD COUNT 9.4 10^3/uL (4.0-10.5)
[2019-06-18 05:47] LABS: HEMOGLOBIN 7.7 g/dL (13.5-17.0)
[2019-06-18 06:11] LABS: ANION GAP 6 (5-19); BLOOD UREA NITROGEN 35 mg/dL (7-20); CALCIUM 8.2 mg/dL (8.4-10.2); CARBON DIOXIDE 28 mmol/L (22-30); CHLORIDE 101 mmol/L (98-107); GLUCOSE 79 mg/dL (75-110); POTASSIUM 3.8 mmol/L (3.6-5.0)
[2019-06-18] MEDS: HEPARIN SOD (PORCINE) 5,000 UNIT/ML 1 ML VIAL SUBCUT SCH (06:33)
[2019-06-18] MEDS: PANTOPRAZOLE SODIUM 40 MG TABLET.DR PO SCH (06:36)
[2019-06-18 06:39] LABS: RETICULOCYTE COUNT (AUTO) 1.98 % (0.66-2.85)
[2019-06-18 06:43] LABS: IRON(TIBC) 14.1 ug/dL (49-181)
[2019-06-18 07:50] LABS: FOLATE 7.17 ng/mL (>2.76)
--- NOTE | 2019-06-18 08:09 | PDOC PROGRESS REPORT ---
Subjective Progress Note for:: 06/18/19 Subjective:: JARED HORVATH JR is a 58 year old male with history of heart failure with reduced ejection fraction, stage III-IV CKD, chronic lower extremity edema, dilated cardiomyopathy, moderate to severe pulmonary hypertension, essential hypertension, type 2 diabetes, alcohol abuse who is consulted to cardiology for further evaluation and management of heart failure. The patient was admitted to this facility 05/02/2019 through 05/08/2019 at which time he was intubated due to severe respiratory failure. He was readmitted 06/04/2019 through 06/09/2019 with hypertensive urgency, heart failure and respiratory infection as well as COPD exacerbation. He was diuresed appropriately and was discharged. Unfortunately, he now presents again to the emergency room with complaints of severe shortness of breath and weight gain. In the emergency room he was treated with BiPAP and IV diuresis with adequate response. This morning the patient is found resting comfortably in bed and without cardiovascular complaints. Unfortunately he admits to a high sodium diet that includes pasta, sauces and other processed foods such as cheese, carroll as well as canned goods. 06/18/2019: This morning the patient is found sitting up at the side of the bed with a BiPAP machine on. He continues to have some dyspnea but no other significant cardiac problems. His hemoglobin is now down to 7.7 and the patient this morning states that he had been having some black stools recently. His telemetry shows normal sinus rhythm without complex atrial or ventricular dysrhythmias. Physical exam on 06/18/2019: GENERAL: Pleasant, no respiratory distress, oriented x3 with normal mood. Well developed. HEENT: Normocephalic, atraumatic. Pupils equal. Sclerae anicteric. Oropharynx moist. NECK: Difficult to evaluate for JVD due to his body habitus. No carotid bruits. LUNGS: Very mild crackles all the way up to the midportion of both lungs. CARDIOVASCULAR: Regular rate and rhythm, normal S1 and S2 without murmurs, rubs, or gallops. PMI not displaced. ABDOMEN: No masses or tenderness to palpation. No bruit. No splenomegaly or hepatomegaly. No abdominal aorta bruit noted. EXTREMITIES: 2+ pitting edema bilaterally, no cyanosis, no clubbing. Difficult to palpate pulses due to his body habitus and lower extremity edema. MUSCULOSKELETAL: No chest tenderness to palpation. NEUROLOGIC: Nonfocal. No gross sensory or motor deficits bilateral upper or lower extremities. Cardiac studies: Echocardiogram on 05/04/2019 at [facility]: -Mild to moderate LVE. -Mild concentric LVH. -EF 40 to 45%. -Grade 1 diastolic dysfunction. -Global hypokinesis. -Mild biatrial enlargement. -Mild MAC without stenosis. -Trace MR, mild TR. -Moderate to severe pulmonary hypertension with pressures between 55 and 60 mmHg. Reason For Visit: ACUTE PULMONARY EDEMA WITH CHF,ACUTE RESPIRATORY Physical Exam Vital Signs: Temp Pulse Resp BP Pulse Ox 98.4 F 92 19 137/68 H 95 06/17/19 19:19 06/18/19 02:00 06/18/19 04:33 06/17/19 19:19 06/17/19 19:19 Intake & Output 06/17/19 06/18/19 06/19/19 06:59 06:59 06:59 Intake Total 1650 930 Output Total 1200 1550 Balance 450 -620 Weight 120.3 kg 121.1 kg Results Laboratory Results: 06/18/19 05:06 06/18/19 05:06 06/18/19 06/18/19 06/18/19 05:06 05:06 05:06 WBC 9.4 RBC 2.52 L Hgb 7.7 L Hct 22.1 L MCV 88 MCH 30.7 MCHC 35.0 RDW 16.5 H Plt Count 261 Seg Neutrophils % 80.2 H Retic Count (auto) 1.98 Sodium 134.8 L Potassium 3.8 Chloride 101 Carbon Dioxide 28 Anion Gap 6 BUN 35 H Creatinine 3.37 H Est GFR ( Amer) 23 L Glucose 79 Calcium 8.2 L Magnesium 1.8 06/16/19 06/16/19 06/16/19 01:35 06:06 06:06 Creatine Kinase 277 H CK-MB (CK-2) 3.43 Troponin I 0.025 0.054 NT-Pro-B Natriuret Pep 3390 H 06/16/19 06/16/19 06/16/19 10:30 10:30 16:14 Creatine Kinase 226 H 215 H CK-MB (CK-2) 2.71 Troponin I 0.071 NT-Pro-B Natriuret Pep 06/16/19 16:14 Creatine Kinase CK-MB (CK-2) 2.80 Troponin I 0.074 NT-Pro-B Natriuret Pep Impressions: Chest X-Ray 06/16/19 01:49 IMPRESSION: No significant change. 06/18/19 05:06 06/18/19 05:06 MCV 88 fl (80-97) 06/18/19 05:06 MCH 30.7 pg (27.0-33.4) 06/18/19 05:06 MCHC 35.0 g/dL (32.0-36.0) 06/18/19 05:06 RDW 16.5 % (11.5-14.0) H 06/18/19 05:06 Seg Neutrophils % 80.2 % (42-78) H 06/18/19 05:06 Retic Count (auto) 1.98 % (0.66-2.85) 06/18/19 05:06 VBG pH 7.41 (7.30-7.42) 06/16/19 01:35 VBG pCO2 44.4 mmHg (35-63) 06/16/19 01:35 VBG HCO3 27.5 mmol/L (20-32) 06/16/19 01:35 VBG Base Excess 2.5 mmol/L 06/16/19 01:35 Chloride 101 mmol/L (98-107) 06/18/19 05:06 Carbon Dioxide 28 mmol/L (22-30) 06/18/19 05:06 Anion Gap 6 (5-19) 06/18/19 05:06 Est GFR ( Amer) 23 (>60) L 06/18/19 05:06 Glucose 79 mg/dL (75-110) 06/18/19 05:06 Calcium 8.2 mg/dL (8.4-10.2) L 06/18/19 05:06 Magnesium 1.8 mg/dL (1.6-2.3) 06/18/19 05:06 Total Bilirubin 0.6 mg/dL (0.2-1.3) 06/16/19 01:35 AST 26 U/L (17-59) 06/16/19 01:35 Alkaline Phosphatase 122 U/L (38-126) 06/16/19 01:35 Total Protein 7.3 g/dL (6.3-8.2) 06/16/19 01:35 Albumin 3.3 g/dL (3.5-5.0) L 06/16/19 01:35 06/16/19 06/16/19 06/16/19 01:35 06:06 06:06 Creatine Kinase 277 H CK-MB (CK-2) 3.43 Troponin I 0.025 0.054 NT-Pro-B Natriuret Pep 3390 H 06/16/19 06/16/19 06/16/19 10:30 10:30 16:14 Creatine Kinase 226 H 215 H CK-MB (CK-2) 2.71 Troponin I 0.071 NT-Pro-B Natriuret Pep 06/16/19 16:14 Creatine Kinase CK-MB (CK-2) 2.80 Troponin I 0.074 NT-Pro-B Natriuret Pep Current Medication List Generic Name Dose Route Start Last Admin Trade Name Freq PRN Reason Stop Dose Admin Acetaminophen 650 mg 06/16/19 04:10 Tylenol 325 Mg Tablet PO 07/16/19 04:09 Q4HP PRN pain or temp greater than 101F Al Hydrox/Mg Hydrox/Simethicone 30 ml 06/16/19 04:10 Maalox Plus Susp 30 Udcup PO 07/16/19 04:09 Q4HP PRN HEARTBURN Amlodipine Besylate 10 mg 06/16/19 10:00 06/17/19 10:30 Norvasc 10 Mg Tablet PO 07/16/19 09:59 10 mg DAILY CATHY Administration Aspirin 81 mg 06/16/19 10:00 06/17/19 10:29 Ecotrin 81 Mg Ec Tablet PO 07/16/19 09:59 81 mg DAILY CATHY Administration Atorvastatin Calcium 40 mg 06/16/19 22:00 06/17/19 21:41 Lipitor 40 Mg Tablet PO 07/16/19 21:59 40 mg QHS CATHY Administration Carvedilol 12.5 mg 06/16/19 10:00 06/17/19 21:41 Coreg 12.5 Mg Tablet PO 07/16/19 09:59 12.5 mg Q12 CATHY Administration Clopidogrel Bisulfate 75 mg 06/16/19 10:00 06/17/19 10:30 Plavix 75 Mg Tablet PO 07/16/19 09:59 75 mg DAILY CATHY Administration Dextrose 12.5 gm 06/16/19 04:19 Dextrose Inj 50% Syringe (25 Gm/50 Ml) IV 07/16/19 04:18 PRN PRN FOR BG 50-69 IN ALERT PATIENT Protocol Dextrose 25 gm 06/16/19 04:19 Dextrose Inj 50% Syringe (25 Gm/50 Ml) IV 07/16/19 04:18 PRN PRN PER PROTOCOL Protocol Docusate Sodium 100 mg 06/16/19 10:00 06/17/19 10:29 Colace 100 Mg Capsule PO 07/16/19 09:59 100 mg DAILY CATHY Administration Ergocalciferol 50,000 unit 06/22/19 08:45 Drisdol 50,000 Unit (1.25mg) Capsule PO 07/22/19 08:44 MO CATHY Furosemide 80 mg 06/17/19 18:00 06/17/19 18:07 Lasix Inj/Pf 100 Mg/10 Ml Sdv IV 07/17/19 17:59 80 mg BID CATHY Administration Glipizide 10 mg 06/16/19 10:00 06/17/19 10:29 Glucotrol Xl 5 Mg Tab.Er PO 07/16/19 09:59 10 mg DAILY CATHY Administration Glucagon 1 mg 06/16/19 04:19 Glucagen Inj 1 Mg Vial IM 07/16/19 04:18 PRN PRN Evaluate for BG < 70 Protocol Glucose 15 gm 06/16/19 04:19 Glutose 40% Gel 15 Gm Tube PO 07/16/19 04:18 PRN PRN FOR BG 50-69 IN ALERT PATIENT Protocol Glucose 30 gm 06/16/19 04:19 Glutose 40% Gel 15 Gm Tube PO 07/16/19 04:18 PRN PRN FOR BG < 50 IN ALERT PATIENT Protocol Guaifenesin 200 mg 06/16/19 04:19 Robitussin Syrup 200 Mg/10 Ml Ud Cup PO 07/16/19 04:18 Q4HP PRN COUGH Heparin Sodium (Porcine) 5,000 unit 06/16/19 06:00 06/18/19 06:33 Heparin Inj 5,000 Units/Ml 1 Ml Vial SUBCUT 07/16/19 05:59 Not Given Q8 CATHY Hydralazine HCl 20 mg 06/16/19 06:23 Apresoline Inj/Pf 20 Mg/1 Ml Sdv IV 07/16/19 06:22 Q4HP PRN Give For Sbp > 160 / Dbp > 100 Insulin Human Regular 0 - 15 unit 06/16/19 04:19 06/16/19 22:01 Humulin R (Pyxis) Insulin 100 Unit/Ml 3ml SUBCUT 07/16/19 04:18 3 unit ACHSP PRN Administration PER PROTOCOL Protocol Isosorbide Mononitrate 60 mg 06/17/19 10:00 06/17/19 10:29 Imdur 60 Mg Tablet.Er PO 07/17/19 09:59 60 mg DAILY CATHY Administration Lorazepam 1 mg 06/16/19 04:19 Ativan Inj 2 Mg/1 Ml Vial IV 06/23/19 04:18 Q4HP PRN ANXIETY/AGITATION Magnesium Hydroxide 30 ml 06/16/19 04:10 Milk Of Magnesia 30 Ml Udcup PO 07/16/19 04:09 HSP PRN FOR CONSTIPATION Melatonin 6 mg 06/16/19 22:00 06/17/19 21:41 Melatonin 3 Mg Tablet PO 07/16/19 21:59 6 mg QHS CATHY Administration Metolazone 5 mg 06/18/19 10:00 Zaroxolyn 5 Mg Tablet PO 07/18/19 09:59 DAILY CATHY Metoprolol Tartrate 5 mg 06/16/19 06:24 Lopressor Inj/Pf 5 Mg/5 Ml Sdv IV 07/16/19 06:23 Q4HP PRN Give For Sbp > 160 / Dbp > 100 Pantoprazole Sodium 40 mg 06/16/19 06:00 06/18/19 06:[address] Tablet PO 07/16/19 05:59 40 mg Q6AM CATHY Administration Promethazine HCl 25 mg 06/16/19 04:10 Phenergan Inj 25 Mg/1 Ml Vial IV 07/16/19 04:09 Q4HP PRN FOR NAUSEA/VOMITING Sodium Chloride 2.5 ml 06/16/19 06:00 06/18/19 06:36 Saline Flush 2.5 Ml Monoject Prefil Syrin IV 07/16/19 05:59 2.5 ml Q8 CATHY Administration Valsartan 160 mg 06/17/19 13:00 06/17/19 13:21 Diovan 160 Mg Tablet PO 07/17/19 12:59 160 mg DAILY CATHY Administration Discontinued Medications Generic Name Dose Route Start Last Admin Trade Name Freq PRN Reason Stop Dose Admin Furosemide 40 mg 06/16/19 01:54 06/16/19 02:53 Lasix Inj/Pf 40 Mg/4 Ml Sdv IV 06/16/19 01:55 40 mg NOW ONE Administration Furosemide 40 mg 06/16/19 06:00 06/16/19 06:19 Lasix Inj/Pf 40 Mg/4 Ml Sdv IV 07/16/19 05:59 40 mg Q6 CATHY Administration Furosemide 60 mg 06/16/19 10:00 06/16/19 17:11 Lasix Inj/Pf 40 Mg/4 Ml Sdv IV 07/16/19 09:59 60 mg BID CATHY Administration Furosemide 80 mg 06/17/19 10:00 06/17/19 10:29 Lasix Inj/Pf 40 Mg/4 Ml Sdv IV 07/17/19 09:59 80 mg BID CATHY Administration Metolazone 5 mg 06/17/19 18:00 06/17/19 17:29 Zaroxolyn 5 Mg Tablet PO 06/17/19 18:01 5 mg NOW ONE Administration Metoprolol Succinate 25 mg 06/16/19 10:00 06/16/19 09:23 Toprol Xl 25 Mg Tab.Sr PO 07/16/19 09:30 25 mg DAILY CATHY Administration Morphine Sulfate 3 mg 06/16/19 01:52 06/16/19 01:58 Morphine 10 Mg/Ml Inj IV 06/16/19 01:53 3 mg NOW ONE Administration Morphine Sulfate 2 mg 06/16/19 04:19 06/16/19 06:20 Morphine 10 Mg/Ml Inj IV 06/23/19 04:18 2 mg Q1HP PRN Administration Acute Severe Dyspnea Nitroglycerin 1 gm 06/16/19 01:51 06/16/19 01:59 Nitrol 2% Ointment 1gm Packet TP 06/16/19 01:52 1 gm NOW ONE Administration Nitroglycerin 1 tab 06/16/19 01:51 06/16/19 01:40 Nitrostat 0.4 Mg (1/150 Gr) Tabs 25/Bottle SL 1 tab ASDIR PRN Administration DIZZINESS Nitroglycerin 1 tab 06/16/19 02:07 06/16/19 02:53 Nitrostat 0.4 Mg (1/150 Gr) Tabs 25/Bottle SL 06/16/19 02:08 Not Given NOW ONE Nitroglycerin 1 gm 06/16/19 06:00 06/16/19 12:34 Nitrol 2% Ointment 1gm Packet TP 07/16/19 09:30 1 gm Q6 CATHY Administration Ondansetron HCl 4 mg 06/16/19 01:52 06/16/19 01:57 Zofran Inj/Pf 4 Mg/2 Ml Sdv IV 06/16/19 01:53 4 mg NOW ONE Administration Valsartan 320 mg 06/16/19 10:00 06/16/19 09:24 Diovan 160 Mg Tablet PO 07/16/19 09:59 320 mg DAILY CATHY Administration Assessment & Plan - Diagnosis (1) Acute on chronic combined systolic and diastolic congestive heart failure Plan: Unfortunately the patient continues to be fluid overloaded and his fluid balance is only -420 cc. To complicate matters, he is now moderately to severely anemic with a hemoglobin of less than 8 which adversely affect both perfusion to the kidneys and heart failure. Recommendations: -Transfuse 2 units of blood, please provide 20 mg of IV Lasix between units. -Continue with Lasix 80 mg twice daily. -Add metolazone 5 mg daily 30 minutes prior to IV Lasix dose. -Continue to restrict fluid intake to 1500 cc daily. -Daily weights and chart. -Strict intake and output. -Low-sodium diet. -Replace electrolytes as needed. -No need to repeat echocardiogram as he already had one approximately 1 or 2 months ago. -We will continue to follow-up with you. (2) Chronic kidney disease, stage III (moderate) Is this a current diagnosis for this admission?: Yes Plan: His renal function is essentially at his baseline. Appreciate nephrology input. Recommendations: -Continue with diuresis. -Continue to follow-up with nephrology. (4) Hypertension Qualifiers: Hypertension type: essential hypertension Qualified Code(s): I10 - Essential (primary) hypertension Plan: His blood pressure continues to improve slowly. Recommendations: -Continue with current medical management for now. -We will consider increasing Coreg to 25 mg twice daily in the next few days if blood pressure not at goal of 130/80 or below.
[2019-06-18 09:03] LABS: INTERNATIONAL RATION (INR) 1.18; PROTHROMBIN TIME 15.1 SEC (11.4-15.4)
--- NOTE | 2019-06-18 10:18 | Progress Note ---
Provider Note Provider Note: I was just contacted by Dr. King who informed that this gentleman is his patient and wishes to follow him while in the hospital therefore I will transfer cardiology care to him.
[2019-06-18] MEDS: FUROSEMIDE INJ/PF 100 MG/10 ML SDV IV SCH ×2 (10:41→18:00)
[2019-06-18] MEDS: CLOPIDOGREL BISULFATE 75 MG TABLET PO SCH (10:43)
[2019-06-18] MEDS: AMLODIPINE BESYLATE 10 MG TABLET PO SCH (10:43)
[2019-06-18] MEDS: CARVEDILOL 12.5 MG TABLET PO SCH ×2 (10:43→21:17)
[2019-06-18] MEDS: DOCUSATE SODIUM 100 MG CAPSULE PO SCH (10:43)
[2019-06-18] MEDS: VALSARTAN 160 MG TABLET PO SCH (10:43)
[2019-06-18] MEDS: ISOSORBIDE MONONITRATE 60 MG TAB.ER.24H PO SCH (10:44)
[2019-06-18] MEDS: METOLAZONE 5 MG TABLET PO SCH (10:44)
[2019-06-18] MEDS: ASPIRIN 81 MG TABLET, ENT COATED PO SCH (10:44)
[2019-06-18] MEDS: GLIPIZIDE XL 5 MG TAB.ER.24 PO SCH (10:44)
[2019-06-18] MEDS ORDERED: NORMAL SALINE 250 ML IV PRN ×2 (10:51)
[2019-06-18] MEDS ORDERED: FUROSEMIDE INJ/PF 20 MG/2 ML SDV IV PRN (11:00)
--- NOTE | 2019-06-18 11:06 | PDOC PROGRESS REPORT ---
Subjective Progress Note for:: 06/18/19 Subjective:: Patient's stated her breathing is a little bit better today. Still feels dyspneic on ambulation. States that he has been taking his meds at home but has been doing poorly with dietary restrictions. Also admits to black stools for the past several days. Denies hematochezia, hematuria, coffee-ground emesis. Last colonoscopy was over 5 years ago in [place] which was unrevealing according to patient. Reason For Visit: ACUTE PULMONARY EDEMA WITH CHF,ACUTE RESPIRATORY Physical Exam Vital Signs: Temp Pulse Resp BP Pulse Ox 99.3 F 82 18 141/74 H 100 06/18/19 07:10 06/18/19 07:10 06/18/19 07:10 06/18/19 07:10 06/18/19 07:10 Intake & Output 06/17/19 06/18/19 06/19/19 06:59 06:59 06:59 Intake Total 1650 930 Output Total 1200 1550 Balance 450 -620 Weight 120.3 kg 121.1 kg General appearance: PRESENT: no acute distress, cooperative Neck exam: ABSENT: JVD Respiratory exam: PRESENT: crackles, symmetrical, unlabored. ABSENT: tachypnea, wheezes Cardiovascular exam: PRESENT: RRR. ABSENT: +S1, +S2, tachycardia GI/Abdominal exam: PRESENT: soft. ABSENT: rebound, rigid, tenderness Extremities exam: PRESENT: +2 edema Neurological exam: PRESENT: alert, awake, oriented to person, oriented to place, oriented to time Results Laboratory Results: 06/18/19 05:06 06/18/19 05:06 06/18/19 06/18/19 06/18/19 05:06 05:06 05:06 WBC 9.4 RBC 2.52 L Hgb 7.7 L Hct 22.1 L MCV 88 MCH 30.7 MCHC 35.0 RDW 16.5 H Plt Count 261 Seg Neutrophils % 80.2 H Retic Count (auto) 1.98 Sodium 134.8 L Potassium 3.8 Chloride 101 Carbon Dioxide 28 Anion Gap 6 BUN 35 H Creatinine 3.37 H Est GFR ( Amer) 23 L Glucose 79 Calcium 8.2 L Magnesium 1.8 Iron TIBC % Saturation Ferritin Vitamin B12 Folate Stool Occult Blood Blood Type Antibody Screen 06/18/19 06/18/19 06/18/19 05:06 07:47 09:05 WBC RBC Hgb Hct MCV MCH MCHC RDW Plt Count Seg Neutrophils % Retic Count (auto) Sodium Potassium Chloride Carbon Dioxide Anion Gap BUN Creatinine Est GFR ( Amer) Glucose Calcium Magnesium Iron 14.1 L TIBC 204 L % Saturation 7 Ferritin 250.00 Vitamin B12 569.0 Folate 7.17 Stool Occult Blood NEGATIVE Blood Type O POSITIVE Antibody Screen NEGATIVE 06/16/19 06/16/19 06/16/19 01:35 06:06 06:06 Creatine Kinase 277 H CK-MB (CK-2) 3.43 Troponin I 0.025 0.054 NT-Pro-B Natriuret Pep 3390 H 06/16/19 06/16/19 06/16/19 10:30 10:30 16:14 Creatine Kinase 226 H 215 H CK-MB (CK-2) 2.71 Troponin I 0.071 NT-Pro-B Natriuret Pep 06/16/19 16:14 Creatine Kinase CK-MB (CK-2) 2.80 Troponin I 0.074 NT-Pro-B Natriuret Pep Impressions: Chest X-Ray 06/16/19 01:49 IMPRESSION: No significant change. Assessment and Plan - Diagnosis (1) Acute on chronic combined systolic and diastolic congestive heart failure Is this a current diagnosis for this admission?: Yes Plan: Echo on last visit 04/2019 showing EF of 40 to 45% with grade 1/4 diastolic dysfunction, concentric LVH RVSP 55 to 60 mmHg Will need optimal blood pressure control and diuresis and better compliance with dietary recommendations. Fluid restriction. Dietitian consulted. Continue Coreg and valsartan. Lasix 80 mg IV twice daily and metolazone added. Cardiology following (2) Acute respiratory failure with hypoxia Is this a current diagnosis for this admission?: Yes Plan: Likely secondary to pulmonary edema from decompensated heart failure. Hopefully will be able to wean oxygen with effective diuresis. (3) Iron deficiency anemia Qualifiers: Iron deficiency anemia type: unspecified iron deficiency Qualified Code(s): D50.9 - Iron deficiency anemia, unspecified Is this a current diagnosis for this admission?: Yes Plan: Hemoglobin noted to have dropped from 10-7.7 over the past few days. Iron studies showing normal B12 and folic acid but iron deficient. Patient also reports black stools but no abdominal pain, hematochezia hematemesis or coffee- ground emesis. States last colonoscopy was in [place] and was 5 years ago which was unrevealing. Due for repeat colonoscopy. We will transfuse 1 unit of PRBC today and monitor CBC closely. Start Protonix Ultimately, will need endoscopic evaluation at some point but as for now we will need to optimize his respiratory status and CHF first. (4) Diabetes mellitus type 2 in obese Is this a current diagnosis for this admission?: Yes Plan: Continue glipizide. Carb restricted diet. Sliding scale insulin. (5) Chronic kidney disease, stage IV (severe) Is this a current diagnosis for this admission?: Yes Plan: Nephrology following. Avoid nephrotoxic meds. Baseline noted of 3-3.5. Monitor creatinine closely with diuresis. Seems to be trending up. (6) Hypertension Qualifiers: Hypertension type: essential hypertension Qualified Code(s): I10 - Essential (primary) hypertension Is this a current diagnosis for this admission?: Yes Plan: Looks better but past 24 hours still not optimally controlled. valsartan 160 mg daily, amlodipine, Imdur, Coreg and Lasix. - Time Time Spent with patient: 15-24 minutes
--- NOTE | 2019-06-18 13:05 | PDOC PROGRESS REPORT ---
Subjective Progress Note for:: 06/18/19 Subjective:: Patient was sitting up on the side of the bed with a oxygen being given via NC. At the time he was off of the bipap and looking to eat his breakfast. He did claim that with just changing positions it made him SOB. He denies chest pain or chest pressure. He produced 1550mL of urine yesterday and according to him he is collecting just about every drop of urine. Reason For Visit: ACUTE PULMONARY EDEMA WITH CHF,ACUTE RESPIRATORY Physical Exam Vital Signs: Temp Pulse Resp BP Pulse Ox 98.3 F 78 18 134/74 H 99 06/18/19 12:33 06/18/19 12:33 06/18/19 12:33 06/18/19 12:33 06/18/19 12:33 Intake & Output 06/17/19 06/18/19 06/19/19 06:59 06:59 06:59 Intake Total 1650 930 0 Output Total 1200 1550 Balance 450 -620 0 Weight 120.3 kg 121.1 kg General appearance: PRESENT: cooperative, mild distress, well-developed, well- nourished Mouth exam: PRESENT: moist, neck supple Respiratory exam: PRESENT: accessory muscle use, crackles, rales. ABSENT: clear to auscultation liseth, wheezes Cardiovascular exam: PRESENT: +S1, +S2 GI/Abdominal exam: PRESENT: normal bowel sounds, soft. ABSENT: ascites, organomegaly, tenderness Extremities exam: PRESENT: pedal edema, +2 edema. ABSENT: tenderness Musculoskeletal exam: ABSENT: normal inspection, tenderness Neurological exam: PRESENT: alert, awake, oriented to person, oriented to place, oriented to time, oriented to situation Psychiatric exam: PRESENT: appropriate affect, normal mood Skin exam: PRESENT: dry, intact, warm. ABSENT: cyanosis Results Laboratory Results: 06/18/19 05:06 06/18/19 05:06 06/18/19 06/18/19 06/18/19 05:06 05:06 05:06 WBC 9.4 RBC 2.52 L Hgb 7.7 L Hct 22.1 L MCV 88 MCH 30.7 MCHC 35.0 RDW 16.5 H Plt Count 261 Seg Neutrophils % 80.2 H Retic Count (auto) 1.98 Sodium 134.8 L Potassium 3.8 Chloride 101 Carbon Dioxide 28 Anion Gap 6 BUN 35 H Creatinine 3.37 H Est GFR ( Amer) 23 L Glucose 79 Calcium 8.2 L Magnesium 1.8 Iron TIBC % Saturation Ferritin Vitamin B12 Folate Stool Occult Blood Blood Type Antibody Screen 06/18/19 06/18/19 06/18/19 05:06 07:47 09:05 WBC RBC Hgb Hct MCV MCH MCHC RDW Plt Count Seg Neutrophils % Retic Count (auto) Sodium Potassium Chloride Carbon Dioxide Anion Gap BUN Creatinine Est GFR ( Amer) Glucose Calcium Magnesium Iron 14.1 L TIBC 204 L % Saturation 7 Ferritin 250.00 Vitamin B12 569.0 Folate 7.17 Stool Occult Blood NEGATIVE Blood Type O POSITIVE Antibody Screen NEGATIVE 06/16/19 06/16/19 06/16/19 01:35 06:06 06:06 Creatine Kinase 277 H CK-MB (CK-2) 3.43 Troponin I 0.025 0.054 NT-Pro-B Natriuret Pep 3390 H 06/16/19 06/16/19 06/16/19 10:30 10:30 16:14 Creatine Kinase 226 H 215 H CK-MB (CK-2) 2.71 Troponin I 0.071 NT-Pro-B Natriuret Pep 06/16/19 16:14 Creatine Kinase CK-MB (CK-2) 2.80 Troponin I 0.074 NT-Pro-B Natriuret Pep Impressions: Chest X-Ray 06/16/19 01:49 IMPRESSION: No significant change. Assessment & Plan - Diagnosis (1) Acute on chronic combined systolic and diastolic congestive heart failure Is this a current diagnosis for this admission?: Yes Plan: per cardiology, looks to be adding metolazone once a day. If creatinine starts to significantly change than metolazone may need to be stopped. At that time IV furosemide at 40mg q8 is recommended for trying. Advised the patient to try restricting his fluid intake down and to strictly monitor his urine output. (2) Chronic kidney disease, stage IV (severe) Is this a current diagnosis for this admission?: Yes Plan: baseline is 3 to 3.3 (3) Iron deficiency anemia Qualifiers: Iron deficiency anemia type: unspecified iron deficiency Qualified Code(s): D50.9 - Iron deficiency anemia, unspecified Is this a current diagnosis for this admission?: Yes Plan: getting transfused two units of blood. Patient later as outpatient could benefit from some IV iron if iron sats are still low. (4) Diabetes mellitus type 2 in obese Is this a current diagnosis for this admission?: Yes
--- NOTE | 2019-06-18 18:05 | Progress Note ---
Provider Note Provider Note: Cardiology care transferred to myself, since the patient follows up with me with me in the office and is my patient. Discussed the case with Dr. Merrill who been efficiently and eminently managing the patient's cardiac status so far. I will start writing notes from tomorrow. The patient's entire visit notes and labs and other relevant data have been reviewed by me. I thank Dr. Merrill and Dr. Blanchard, and the nurses concern for their excellent care.
[2019-06-18 19:22] LABS: HEMATOCRIT 27.2 % (37.9-51.0); HEMOGLOBIN 9.7 g/dL (13.5-17.0); MEAN CORPUSCULAR HEMOGLOBIN 30.8 pg (27.0-33.4); MEAN CORPUSCULAR HGB CONC 35.5 g/dL (32.0-36.0); MEAN CORPUSCULAR VOLUME 87 fl (80-97); PLATELET COUNT 291 10^3/uL (150-450); RED BLOOD COUNT 3.13 10^6/uL (4.35-5.55); WHITE BLOOD COUNT 10.9 10^3/uL (4.0-10.5)
[2019-06-18] MEDS: MELATONIN 3 MG TABLET PO SCH (21:24)
[2019-06-18] MEDS: ATORVASTATIN CALCIUM 40 MG TABLET PO SCH (21:24)
[2019-06-18] MEDS: GUAIFENESIN SYRP 200 MG/10 ML UDC PO PRN (21:24)
[2019-06-18] MEDS: PANTOPRAZOLE SODIUM 40 MG VIAL IV SCH (21:26)
[2019-06-18 23:54] LABS: ANION GAP 7 (5-19); BLOOD UREA NITROGEN 39 mg/dL (7-20); CALCIUM 8.6 mg/dL (8.4-10.2); CARBON DIOXIDE 28 mmol/L (22-30); CHLORIDE 100 mmol/L (98-107); GLUCOSE 115 mg/dL (75-110); POTASSIUM 4.2 mmol/L (3.6-5.0)
[2019-06-19 01:18] LABS: ANION GAP 9 (5-19); BLOOD UREA NITROGEN 37 mg/dL (7-20); CALCIUM 8.3 mg/dL (8.4-10.2); CARBON DIOXIDE 27 mmol/L (22-30); CHLORIDE 100 mmol/L (98-107); GLUCOSE 72 mg/dL (75-110); POTASSIUM 3.6 mmol/L (3.6-5.0)
[2019-06-19 06:08] LABS: HEMATOCRIT 23.8 % (37.9-51.0); HEMOGLOBIN 8.4 g/dL (13.5-17.0); MEAN CORPUSCULAR HEMOGLOBIN 30.7 pg (27.0-33.4); MEAN CORPUSCULAR HGB CONC 35.4 g/dL (32.0-36.0); MEAN CORPUSCULAR VOLUME 87 fl (80-97); PLATELET COUNT 270 10^3/uL (150-450); RED BLOOD COUNT 2.75 10^6/uL (4.35-5.55); RED CELL DISTRIBUTION WIDTH 16.2 % (11.5-14.0); WHITE BLOOD COUNT 10.1 10^3/uL (4.0-10.5)
[2019-06-19 06:21] LABS: ANION GAP 8 (5-19); BLOOD UREA NITROGEN 38 mg/dL (7-20); CALCIUM 8.3 mg/dL (8.4-10.2); CARBON DIOXIDE 28 mmol/L (22-30); CHLORIDE 100 mmol/L (98-107); POTASSIUM 3.6 mmol/L (3.6-5.0)
[2019-06-19 06:25] LABS: GLUCOSE 55 mg/dL (75-110)
[2019-06-19] MEDS ORDERED: MAGNESIUM OXIDE 400 MG TABLET PO ONE (08:00)
[2019-06-19] MEDS: DOCUSATE SODIUM 100 MG CAPSULE PO SCH (09:06)
[2019-06-19] MEDS: METOLAZONE 5 MG TABLET PO SCH (09:06)
[2019-06-19] MEDS: ISOSORBIDE MONONITRATE 60 MG TAB.ER.24H PO SCH (09:06)
[2019-06-19] MEDS: ASPIRIN 81 MG TABLET, ENT COATED PO SCH (09:07)
[2019-06-19] MEDS: AMLODIPINE BESYLATE 10 MG TABLET PO SCH (09:07)
[2019-06-19] MEDS: VALSARTAN 160 MG TABLET PO SCH (09:07)
[2019-06-19] MEDS: FUROSEMIDE INJ/PF 100 MG/10 ML SDV IV SCH ×2 (09:07→17:10)
[2019-06-19] MEDS: GLIPIZIDE XL 5 MG TAB.ER.24 PO SCH (09:07)
[2019-06-19] MEDS: PANTOPRAZOLE SODIUM 40 MG VIAL IV SCH ×2 (09:08→21:50)
[2019-06-19] MEDS: CARVEDILOL 12.5 MG TABLET PO SCH ×2 (09:08→21:50)
--- NOTE | 2019-06-19 12:27 | Progress Note ---
Provider Note Provider Note: CARDIOLOGY PROGRESS NOTE by Dr. Deonna MARKHAM on 06/19/2019. SUBJECTIVE: The patient states he feels much better. He still has some shortness of breath when he ambulates inside the room. He has orthopnea. But there is no PND. His leg edema is only trace. There is no TIA CVA symptoms. Patient denies any chest pain or discomfort. There is no ventricle arrhythmia seen on the monitor or atrial arrhythmias. PHYSICAL EXAMINATION: The patient mildly obese in no acute distress. He is well-groomed Selected Entries 06/19/19 12:09 Temperature 97.6 F Temperature Oral Source Pulse Rate 73 Respiratory 18 Rate Blood Pressure 131/76 H Blood Pressure 94 Mean BP Location Left Arm BP Position Sitting O2 Sat by Pulse 96 Oximetry Oxygen Delivery Room Air Method HEAD: Is atraumatic normocephalic. EYES: Pupils are equal round regular reactive to light. ENT is negative. NECK: Is supple there is mild JVD present. Carotids are equal there is no bruits. There is no lymphadenopathy. There is no goiter. There is no accessory muscle respiration use. LUNGS: There is a few bibasilar rales.No rhonchi.HEART : S1 and S2 is heard. There is no S3 gallop. There is no S4 gallop. There is murmur mitral regurgitation and tricuspid regurgitation present. There is no rub. ABDOMEN: Soft mildly obese. Nontender there is no paraspinal megaly. Bowel sounds are well heard. Extremities femorals are diminished. Leg pulses are diminished there is chronic lymphedema with also trace edema bilaterally. There is chronic venous stasis dermatitis changes. Leg pulses are difficult to palpate. There is no DVT or cellulitis. There is no cyanosis or clubbing. BOTTLE CASER: The patient awake alert oriented x3 with no focal deficits. PSYCHIATRIC: Patient judgment insight are intact his affect is normal. Labs- All tests 24 hr 06/19/19 06/19/19 06/19/19 00:51 05:33 05:33 WBC 10.1 RBC 2.75 L Hgb 8.4 L Hct 23.8 L MCV 87 MCH 30.7 MCHC 35.4 RDW 16.2 H Plt Count 270 Sodium 136.3 L 135.7 L Potassium 3.6 3.6 Chloride 100 100 Carbon Dioxide 27 28 Anion Gap 9 8 BUN 37 H 38 H Creatinine 3.34 H 3.54 H Est GFR ( Amer) 23 L 21 L Est GFR (MDRD) Non-Af 19 L 18 L Glucose 72 L 55 L POC Glucose Calcium 8.3 L 8.3 L Magnesium 1.8 1.8 06/19/19 06/19/19 06/19/19 06:45 07:08 12:11 WBC RBC Hgb Hct MCV MCH MCHC RDW Plt Count Sodium Potassium Chloride Carbon Dioxide Anion Gap BUN Creatinine Est GFR ( Amer) Est GFR (MDRD) Non-Af Glucose POC Glucose 58 L 106 128 H Calcium Magnesium 06/19/19 06/19/19 15:10 21:18 WBC RBC Hgb Hct MCV MCH MCHC RDW Plt Count Sodium Potassium Chloride Carbon Dioxide Anion Gap BUN Creatinine Est GFR ( Amer) Est GFR (MDRD) Non-Af Glucose POC Glucose 117 H 156 H Calcium Magnesium Chest X-Ray 06/16/19 01:49 IMPRESSION: No significant change. IMPRESSION RECOMMENDATION: 1. Anemia: Most likely related to chronic renal insufficiency. Would rule there to check for iron deficiency. The patient did get packed RBC infusion. 2. Acute on chronic biventricular systolic heart failure: Continue diuresis. Continue his anti-cardiomyopathy medication, including Diovan and Coreg 3. Acute on chronic renal failure: 4. Dilated cardiomyopathy with moderately reduced LV ejection fraction 5. Moderate to severe pulmonary hypertension: 6. Hypertension: Continue antihypertensives 7. Diabetes mellitus: Continue antidiabetic regimen and Accu-Cheks as per protocol Medications reviewed medical regimen and management plan discussed with the attending physician and the script developer. Medical decision making is of moderate complexity. 40 minutes spent as patient more than 50% time spent in direct patient care. Will follow
--- NOTE | 2019-06-19 13:46 | PDOC PROGRESS REPORT ---
Subjective Progress Note for:: 06/19/19 Subjective:: Patient states that he does not feel short of breath today. Has not done much ambulation. Did have some coughing fits yesterday and coughed up a little sputum streaked with mild blood. Otherwise feels well. Reason For Visit: ACUTE PULMONARY EDEMA WITH CHF,ACUTE RESPIRATORY Physical Exam Vital Signs: Temp Pulse Resp BP Pulse Ox 97.6 F 73 18 131/76 H 96 06/19/19 12:09 06/19/19 12:09 06/19/19 12:09 06/19/19 12:09 06/19/19 12:09 Intake & Output 06/18/19 06/19/19 06/20/19 06:59 06:59 06:59 Intake Total 930 1220 480 Output Total 1550 2025 Balance -620 -805 480 Weight 121.1 kg 118.5 kg General appearance: PRESENT: no acute distress, cooperative Neck exam: ABSENT: JVD Respiratory exam: PRESENT: crackles, symmetrical, unlabored. ABSENT: tachypnea, wheezes Cardiovascular exam: PRESENT: RRR, +S1, +S2. ABSENT: tachycardia GI/Abdominal exam: PRESENT: soft. ABSENT: rebound, rigid, tenderness Neurological exam: PRESENT: alert, awake, oriented to person, oriented to place, oriented to time Results Laboratory Results: 06/19/19 05:33 06/19/19 05:33 06/18/19 06/18/19 06/19/19 19:15 19:15 00:51 WBC 10.9 H RBC 3.13 L Hgb 9.7 L Hct 27.2 L MCV 87 MCH 30.8 MCHC 35.5 RDW 16.0 H Plt Count 291 Sodium 135.4 L 136.3 L Potassium 4.2 3.6 Chloride 100 100 Carbon Dioxide 28 27 Anion Gap 7 9 BUN 39 H 37 H Creatinine 3.52 H 3.34 H Est GFR ( Amer) 22 L 23 L Glucose 115 H 72 L Calcium 8.6 8.3 L Magnesium 2.0 1.8 06/19/19 06/19/19 05:33 05:33 WBC 10.1 RBC 2.75 L Hgb 8.4 L Hct 23.8 L MCV 87 MCH 30.7 MCHC 35.4 RDW 16.2 H Plt Count 270 Sodium 135.7 L Potassium 3.6 Chloride 100 Carbon Dioxide 28 Anion Gap 8 BUN 38 H Creatinine 3.54 H Est GFR ( Amer) 21 L Glucose 55 L Calcium 8.3 L Magnesium 1.8 06/16/19 06/16/19 06/16/19 01:35 06:06 06:06 Creatine Kinase 277 H CK-MB (CK-2) 3.43 Troponin I 0.025 0.054 NT-Pro-B Natriuret Pep 3390 H 06/16/19 06/16/19 06/16/19 10:30 10:30 16:14 Creatine Kinase 226 H 215 H CK-MB (CK-2) 2.71 Troponin I 0.071 NT-Pro-B Natriuret Pep 06/16/19 16:14 Creatine Kinase CK-MB (CK-2) 2.80 Troponin I 0.074 NT-Pro-B Natriuret Pep Impressions: Chest X-Ray 06/16/19 01:49 IMPRESSION: No significant change. Assessment and Plan - Diagnosis (1) Acute on chronic combined systolic and diastolic congestive heart failure Is this a current diagnosis for this admission?: Yes Plan: Echo on last visit 04/2019 showing EF of 40 to 45% with grade 1/4 diastolic dysfunction, concentric LVH RVSP 55 to 60 mmHg Will need optimal blood pressure control and diuresis and better compliance with dietary recommendations. Fluid restriction. Dietitian consulted. Continue Coreg and valsartan. Lasix 80 mg IV twice daily and metolazone added. Cardiology following (2) Acute respiratory failure with hypoxia Is this a current diagnosis for this admission?: Yes Plan: Likely secondary to pulmonary edema from decompensated heart failure. Hopefully will be able to wean oxygen with effective diuresis. Will attempt to wean oxygen further today. (3) Iron deficiency anemia Qualifiers: Iron deficiency anemia type: unspecified iron deficiency Qualified Code(s): D50.9 - Iron deficiency anemia, unspecified Is this a current diagnosis for this admission?: Yes Plan: Iron studies showing normal B12 and folic acid but iron deficient. Patient also reports black stools but no abdominal pain, hematochezia hematemesis or coffee- ground emesis. States last colonoscopy was in [place] and was 5 years ago which was unrevealing. Due for repeat colonoscopy. Status post 1 unit of PRBCs on 06/17. Continue Protonix Ultimately, will need endoscopic evaluation at some point but as for now we will need to optimize his respiratory status and CHF first. (4) Diabetes mellitus type 2 in obese Is this a current diagnosis for this admission?: Yes Plan: Continue glipizide. Carb restricted diet. Sliding scale insulin. (5) Chronic kidney disease, stage IV (severe) Is this a current diagnosis for this admission?: Yes Plan: Nephrology following. Avoid nephrotoxic meds. Baseline noted of 3-3.5. Monitor creatinine closely with diuresis. Seems to be trending up. (6) Hypertension Qualifiers: Hypertension type: essential hypertension Qualified Code(s): I10 - Essential (primary) hypertension Is this a current diagnosis for this admission?: Yes Plan: Looks better but past 24 hours still not optimally controlled. valsartan 160 mg daily, amlodipine, Imdur, Coreg and Lasix. - Time Time Spent with patient: Less than 15 minutes
[2019-06-19] MEDS: MELATONIN 3 MG TABLET PO SCH (21:50)
[2019-06-19] MEDS: ATORVASTATIN CALCIUM 40 MG TABLET PO SCH (21:50)
[2019-06-20 05:55] LABS: MEAN CORPUSCULAR HEMOGLOBIN 30.5 pg (27.0-33.4); MEAN CORPUSCULAR HGB CONC 34.9 g/dL (32.0-36.0); MEAN CORPUSCULAR VOLUME 88 fl (80-97); PLATELET COUNT 258 10^3/uL (150-450); RED BLOOD COUNT 2.63 10^6/uL (4.35-5.55); WHITE BLOOD COUNT 6.1 10^3/uL (4.0-10.5)
[2019-06-20 06:20] LABS: ANION GAP 6 (5-19); BLOOD UREA NITROGEN 46 mg/dL (7-20); CALCIUM 8.2 mg/dL (8.4-10.2); CARBON DIOXIDE 29 mmol/L (22-30); CHLORIDE 101 mmol/L (98-107); GLUCOSE 109 mg/dL (75-110); POTASSIUM 3.9 mmol/L (3.6-5.0)
[2019-06-20] MEDS: MAGNESIUM OXIDE 400 MG TABLET PO SCH (10:19)
[2019-06-20] MEDS: ASPIRIN 81 MG TABLET, ENT COATED PO SCH (10:19)
[2019-06-20] MEDS: AMLODIPINE BESYLATE 10 MG TABLET PO SCH (10:19)
[2019-06-20] MEDS: CARVEDILOL 12.5 MG TABLET PO SCH ×2 (10:19→21:40)
[2019-06-20] MEDS: VALSARTAN 160 MG TABLET PO SCH (10:19)
[2019-06-20] MEDS: DOCUSATE SODIUM 100 MG CAPSULE PO SCH (10:19)
[2019-06-20] MEDS: ISOSORBIDE MONONITRATE 60 MG TAB.ER.24H PO SCH (10:20)
[2019-06-20] MEDS: PANTOPRAZOLE SODIUM 40 MG VIAL IV SCH ×2 (10:20→21:39)
--- NOTE | 2019-06-20 13:10 | PDOC PROGRESS REPORT ---
Subjective Progress Note for:: 06/20/19 Subjective:: Discussed elaborately with patient and patient's son and daughter who are present via phone. Patient is doing better states that his breathing is improved. Family had questions as to what to do to prevent patient from being readmitted in the future insert short intervals which are addressed. They also had questions about colonoscopy which I discussed that we will pursue once patient's respiratory status improves. They were satisfied with the plans and thankful. Reason For Visit: ACUTE PULMONARY EDEMA WITH CHF,ACUTE RESPIRATORY Physical Exam Vital Signs: Temp Pulse Resp BP Pulse Ox 97.4 F 71 19 129/71 H 98 06/20/19 11:07 06/20/19 11:07 06/20/19 11:07 06/20/19 11:07 06/20/19 11:07 Intake & Output 06/19/19 06/20/19 06/21/19 06:59 06:59 06:59 Intake Total 1220 1230 Output Total 2025 725 Balance -805 505 Weight 118.5 kg 118.9 kg General appearance: PRESENT: no acute distress, cooperative Neck exam: ABSENT: JVD Respiratory exam: PRESENT: crackles - significantly improved, symmetrical, unlabored. ABSENT: tachypnea, wheezes Cardiovascular exam: PRESENT: RRR, +S1, +S2. ABSENT: tachycardia GI/Abdominal exam: PRESENT: soft. ABSENT: rebound, rigid, tenderness Extremities exam: PRESENT: +1 edema Neurological exam: PRESENT: alert, awake, oriented to person, oriented to place, oriented to time Results Laboratory Results: 06/20/19 05:24 06/20/19 05:24 06/20/19 06/20/19 05:24 05:24 WBC 6.1 RBC 2.63 L Hgb 8.0 L Hct 23.0 L MCV 88 MCH 30.5 MCHC 34.9 RDW 16.0 H Plt Count 258 Sodium 135.8 L Potassium 3.9 Chloride 101 Carbon Dioxide 29 Anion Gap 6 BUN 46 H Creatinine 3.93 H Est GFR ( Amer) 19 L Glucose 109 Calcium 8.2 L Magnesium 2.1 06/16/19 06/16/19 06/16/19 01:35 06:06 06:06 Creatine Kinase 277 H CK-MB (CK-2) 3.43 Troponin I 0.025 0.054 NT-Pro-B Natriuret Pep 3390 H 06/16/19 06/16/19 06/16/19 10:30 10:30 16:14 Creatine Kinase 226 H 215 H CK-MB (CK-2) 2.71 Troponin I 0.071 NT-Pro-B Natriuret Pep 06/16/19 16:14 Creatine Kinase CK-MB (CK-2) 2.80 Troponin I 0.074 NT-Pro-B Natriuret Pep Impressions: Chest X-Ray 06/16/19 01:49 IMPRESSION: No significant change. Assessment and Plan - Diagnosis (1) Acute on chronic combined systolic and diastolic congestive heart failure Is this a current diagnosis for this admission?: Yes Plan: Echo on last visit 04/2019 showing EF of 40 to 45% with grade 1/4 diastolic dysfunction, concentric LVH RVSP 55 to 60 mmHg Will need optimal blood pressure control and diuresis and better compliance with dietary recommendations. Fluid restriction. Dietitian consulted. Continue Coreg, Imdur and valsartan. Lasix 80 mg IV twice daily and metolazone added-diuretics held today due to worsening creatinine Cardiology following (2) Acute respiratory failure with hypoxia Is this a current diagnosis for this admission?: Yes Plan: Likely secondary to pulmonary edema from decompensated heart failure. Hopefully will be able to wean oxygen with effective diuresis. Will attempt to wean oxygen further today. (3) Iron deficiency anemia Qualifiers: Iron deficiency anemia type: unspecified iron deficiency Qualified Code(s): D50.9 - Iron deficiency anemia, unspecified Is this a current diagnosis for this admission?: Yes Plan: Iron studies showing normal B12 and folic acid but iron deficient. Patient also reports black stools but no abdominal pain, hematochezia hematemesis or coffee- ground emesis. States last colonoscopy was in [place] and was 5 years ago which was unrevealing. Due for repeat colonoscopy. Status post 1 unit of PRBCs on 06/17. Hemoglobin trending down Continue Protonix twice daily Ultimately, will need endoscopic evaluation at some point but as for now we will need to optimize his respiratory status and CHF first. We will have surgery evaluate tomorrow. (4) Diabetes mellitus type 2 in obese Is this a current diagnosis for this admission?: Yes Plan: Continue glipizide. Carb restricted diet. Sliding scale insulin. (5) Chronic kidney disease, stage IV (severe) Is this a current diagnosis for this admission?: Yes Plan: Nephrology following. Avoid nephrotoxic meds. Baseline noted of 3-3.5. Monitor creatinine closely with diuresis. Seems to be trending up. (6) Hypertension Qualifiers: Hypertension type: essential hypertension Qualified Code(s): I10 - Essential (primary) hypertension Is this a current diagnosis for this admission?: Yes Plan: Looks better controlled. valsartan 160 mg daily, amlodipine, Imdur, Coreg and Lasix. - Plan Summary Summary: Plan discussed elaborately with family over the phone. - Time Time Spent with patient: 15-24 minutes
[2019-06-20] MEDS: NIFEDIPINE 30 MG TAB.ER.24 PO SCH ×2 (14:13→21:40)
--- NOTE | 2019-06-20 21:19 | Progress Note ---
Provider Note Provider Note: CARDIOLOGY PROGRESS NOTE by Dr. Deonna Iniguez on 06/20/2019. SUBJECTIVE: The patient denies any shortness of breath at rest. But with minimal activity continues to have shortness of breath. He continues to have orthopnea. There is no PND. His leg edema is stable. The patient looks slightly dehydrated. The patient's kidney functions have worsened and hence the patient's metolazone has been held. There is no arrhythmia seen on the monitor. There is no chest pain or discomfort. There is no TIA CVA symptoms. Physical EXAMINATION: The patient is mildly obese. In no acute distress Selected Entries 06/20/19 11:07 Temperature 97.4 F Temperature Oral Source Pulse Rate 71 Respiratory 19 Rate Blood Pressure 129/71 H Blood Pressure 90 Mean BP Location Left Arm BP Position Sitting O2 Sat by Pulse 98 Oximetry Oxygen Flow 3.00 Rate Oxygen Delivery Nasal Cannula Method HEAD: Is atraumatic normocephalic. EYES: Pupils are equal round regular reactive to light. ENT is negative. NECK: Is supple there is mild JVD present. Carotids are equal there is no bruits. There is no lymphadenopathy. There is no goiter. There is no accessory muscle respiration use. LUNGS: There there is no bibasilar rales on today's exam.No rhonchi.HEART : S1 and S2 is heard. There is no S3 gallop. There is no S4 gallop. There is murmur mitral regurgitation and tricuspid regurgitation present. There is no rub. ABDOMEN: Soft mildly obese. Nontender there is no paraspinal megaly. Bowel sounds are well heard. Extremities femorals are diminished. Leg pulses are diminished there is chronic lymphedema with also trace edema bilaterally. There is chronic venous stasis dermatitis changes. Leg pulses are difficult to palpate. There is no DVT or cellulitis. There is no cyanosis or clubbing. 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 PSYCHIATRIC: Patient judgment insight intact his affect is normal. Patient's 24-hour intake is 1230 mL. His output is 725 mL. Labs- All tests 24 hr 06/19/19 06/20/19 06/20/19 21:18 05:24 05:24 WBC 6.1 RBC 2.63 L Hgb 8.0 L Hct 23.0 L MCV 88 MCH 30.5 MCHC 34.9 RDW 16.0 H Plt Count 258 Sodium 135.8 L Potassium 3.9 Chloride 101 Carbon Dioxide 29 Anion Gap 6 BUN 46 H Creatinine 3.93 H Est GFR ( Amer) 19 L Est GFR (MDRD) Non-Af 16 L Glucose 109 POC Glucose 156 H Calcium 8.2 L Magnesium 2.1 06/20/19 06/20/19 06/20/19 07:21 11:08 15:58 WBC RBC Hgb Hct MCV MCH MCHC RDW Plt Count Sodium Potassium Chloride Carbon Dioxide Anion Gap BUN Creatinine Est GFR ( Amer) Est GFR (MDRD) Non-Af Glucose POC Glucose 97 221 H 206 H Calcium Magnesium 06/20/19 21:02 WBC RBC Hgb Hct MCV MCH MCHC RDW Plt Count Sodium Potassium Chloride Carbon Dioxide Anion Gap BUN Creatinine Est GFR ( Amer) Est GFR (MDRD) Non-Af Glucose POC Glucose 177 H Calcium Magnesium Chest X-Ray 06/16/19 01:49 IMPRESSION: No significant change. IMPRESSION RECOMMENDATION: 1. Anemia: Most likely related to chronic renal insufficiency, and also iron deficiency.. The patient did get packed RBC infusion. In spite of this hemo globin still is low. Patient will benefit from iron transfusion. 2. Acute on chronic biventricular systolic heart failure: Continue diuresis. Continue his anti-cardiomyopathy medication, including Diovan and Coreg 3. Acute on chronic renal failure: Renal function is worsened. This is most likely secondary to overdiuresis. The patient diuretics has been held. 4. Dilated cardiomyopathy with moderately reduced LV ejection fraction 5. Moderate to severe pulmonary hypertension: We will discontinue the patient's amlodipine and start the patient on Procardia and increase as tolerated. 6. Hypertension: Continue antihypertensives 7. Diabetes mellitus: Continue antidiabetic regimen and Accu-Cheks as per protocol Medications reviewed. Medications adjusted. Medical regimen and management plan discussed with the attending provider on the case. Medical decision making is of high complexity in view of the need to change the patient's medications. 40 minutes spent on the patient with more than 50% of time spent in direct patient care. Will follow.
[2019-06-20] MEDS: GUAIFENESIN SYRP 200 MG/10 ML UDC PO PRN (21:39)
[2019-06-20] MEDS: ATORVASTATIN CALCIUM 40 MG TABLET PO SCH (21:40)
[2019-06-20] MEDS: MELATONIN 3 MG TABLET PO SCH (21:40)
[2019-06-20] MEDS: INSULIN REG, HUMAN 100 UNIT/ML 3 ML VIAL (PYX) SUBCUT PRN (22:19)
[2019-06-21 06:00] LABS: HEMATOCRIT 25.2 % (37.9-51.0); HEMOGLOBIN 8.8 g/dL (13.5-17.0); MEAN CORPUSCULAR HEMOGLOBIN 30.5 pg (27.0-33.4); MEAN CORPUSCULAR HGB CONC 34.7 g/dL (32.0-36.0); MEAN CORPUSCULAR VOLUME 88 fl (80-97); PLATELET COUNT 306 10^3/uL (150-450); RED BLOOD COUNT 2.87 10^6/uL (4.35-5.55); RED CELL DISTRIBUTION WIDTH 15.3 % (11.5-14.0); WHITE BLOOD COUNT 6.2 10^3/uL (4.0-10.5)
[2019-06-21 06:27] LABS: ANION GAP 10 (5-19); BLOOD UREA NITROGEN 51 mg/dL (7-20); CALCIUM 8.4 mg/dL (8.4-10.2); CARBON DIOXIDE 28 mmol/L (22-30); CHLORIDE 99 mmol/L (98-107); GLUCOSE 121 mg/dL (75-110); POTASSIUM 4.3 mmol/L (3.6-5.0)
[2019-06-21] MEDS ORDERED: NORMAL SALINE 1000 ML 500 ML IV PRN (08:01)
[2019-06-21] MEDS: INSULIN REG, HUMAN 100 UNIT/ML 3 ML VIAL (PYX) SUBCUT PRN (08:49)
[2019-06-21] MEDS ORDERED: IRON SUCROSE COMPLEX INJ/PF 100 MG/5 ML SDV IV ONE (09:00)
[2019-06-21] MEDS: ASPIRIN 81 MG TABLET, ENT COATED PO SCH (10:38)
[2019-06-21] MEDS: ISOSORBIDE MONONITRATE 60 MG TAB.ER.24H PO SCH (10:38)
[2019-06-21] MEDS: MAGNESIUM OXIDE 400 MG TABLET PO SCH (10:38)
[2019-06-21] MEDS: DOCUSATE SODIUM 100 MG CAPSULE PO SCH (10:38)
[2019-06-21] MEDS: VALSARTAN 160 MG TABLET PO SCH (10:39)
[2019-06-21] MEDS: CARVEDILOL 12.5 MG TABLET PO SCH ×2 (10:39→21:50)
[2019-06-21] MEDS: PANTOPRAZOLE SODIUM 40 MG VIAL IV SCH ×2 (10:39→21:50)
[2019-06-21] MEDS: NIFEDIPINE 30 MG TAB.ER.24 PO SCH ×2 (10:39→21:50)
--- NOTE | 2019-06-21 11:40 | Progress Note ---
Provider Note Provider Note: CARDIOLOGY PROGRESS NOTE by Dr. Deonna Iniguez on 06/21/2019. OBJECTIVE: The patient is still states that he is still has some degree of shortness of breath. But he was able to ambulate in the hallway without any dropping of his oxygen saturation. He denies any chest pain or discomfort. He does have orthopnea but no PND. In spite of the treatment is renal function has worsened. He got 500 mL of IV fluids. Suspect the renal function deterioration is secondary to low cardiac output. Hence would recommend starting the patient on dobutamine at 2.5 mcg/kg/min. There is no arrhythmia seen on the monitor. His leg edema is slightly worsened and is now mild compared to trace edema yesterday. PHYSICAL EXAMINATION: The patient is mildly obese in no acute distress. Selected Entries 06/21/19 11:32 Temperature 97.6 F Temperature Oral Source Pulse Rate 75 Respiratory 17 Rate Blood Pressure 129/76 H Blood Pressure 93 Mean BP Location Left Arm BP Position Supine O2 Sat by Pulse 98 Oximetry Oxygen Flow 2.00 Rate Oxygen Delivery Nasal Cannula Method HEAD: Is atraumatic normocephalic. EYES: Pupils are equal round regular reactive to light. ENT is negative. NECK: Is supple there is mild JVD present. Carotids are equal there is no bruits. There is no lymphadenopathy. There is no goiter. There is no accessory muscle respiration use. LUNGS: There there is no bibasilar rales on today's exam.No rhonchi.HEART : S1 and S2 is heard. There is no S3 gallop. There is no S4 gallop. There is murmur mitral regurgitation and tricuspid regurgitation present. There is no rub. ABDOMEN: Soft mildly obese. Nontender there is no paraspinal megaly. Bowel sounds are well heard. Extremities femorals are diminished. Leg pulses are diminished there is chronic lymphedema with also trace edema bilaterally. There is chronic venous stasis dermatitis changes. Leg pulses are difficult to palpate. There is no DVT or cellulitis. There is no cyanosis or clubbing. 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 PSYCHIATRIC: Patient judgment insight intact his affect is normal. Patient's 24-hour intake is 750 mL. His output is 525 mL. Labs- All tests 24 hr 06/20/19 06/21/19 06/21/19 21:02 04:55 04:55 WBC 6.2 RBC 2.87 L Hgb 8.8 L Hct 25.2 L MCV 88 MCH 30.5 MCHC 34.7 RDW 15.3 H Plt Count 306 Sodium 136.8 L Potassium 4.3 Chloride 99 Carbon Dioxide 28 Anion Gap 10 BUN 51 H Creatinine 4.15 H Est GFR ( Amer) 18 L Est GFR (MDRD) Non-Af 15 L Glucose 121 H POC Glucose 177 H Calcium 8.4 Magnesium 2.0 06/21/19 06/21/19 06/21/19 08:24 11:34 16:01 WBC RBC Hgb Hct MCV MCH MCHC RDW Plt Count Sodium Potassium Chloride Carbon Dioxide Anion Gap BUN Creatinine Est GFR ( Amer) Est GFR (MDRD) Non-Af Glucose POC Glucose 185 H 156 H 160 H Calcium Magnesium Chest X-Ray 06/16/19 01:49 IMPRESSION: No significant change. IMPRESSION RECOMMENDATION: 1. Anemia: Most likely related to chronic renal insufficiency, and also iron deficiency.. The patient did get packed RBC infusion. In spite of this hemoglobin still is low. Patient will benefit from iron transfusion. 2. Acute on chronic biventricular systolic heart failure: Continue diuresis. Continue his anti-cardiomyopathy medication, including Diovan and Coreg 3. Acute on chronic renal failure: Renal function is worsened. This is most likely secondary to overdiuresis. The patient diuretics has been held. Suspect that the patient's decreased urine output and worsening renal function secondary to decrease in cardiac output. Will start the patient on dobutamine at 2.5 mg/kg/min. 4. Dilated cardiomyopathy with moderately reduced LV ejection fraction 5. Moderate to severe pulmonary hypertension: The patient is tolerating Procardia. Will increase as tolerated. 6. Hypertension: Continue antihypertensives 7. Diabetes mellitus: Continue antidiabetic regimen and Accu-Cheks as per protocol Medications reviewed. Medications adjusted. Dobutamine drip added. Medical history making is of high complexity. Medical regimen and management plan discussed with attending provider on the case. 40 minutes spent as patient more than 50% time spent in direct patient care. Will follow.
[2019-06-21] MEDS ORDERED: DOBUTAMINE HCL/D5W 500 MG/250 ML RTUINJ IV PRN (11:53)
--- NOTE | 2019-06-21 14:04 | PDOC PROGRESS REPORT ---
Subjective Progress Note for:: 06/21/19 Subjective:: Breathing is improving. An episode of darkish stool yesterday. Reason For Visit: ACUTE PULMONARY EDEMA WITH CHF,ACUTE RESPIRATORY Physical Exam Vital Signs: Temp Pulse Resp BP Pulse Ox 97.6 F 75 17 129/76 H 98 06/21/19 11:32 06/21/19 11:32 06/21/19 11:32 06/21/19 11:32 06/21/19 11:32 Intake & Output 06/20/19 06/21/19 06/22/19 06:59 06:59 06:59 Intake Total 1230 720 677 Output Total 725 525 250 Balance 505 195 427 Weight 118.9 kg General appearance: PRESENT: no acute distress, cooperative Respiratory exam: PRESENT: crackles, symmetrical, unlabored. ABSENT: tachypnea, wheezes Cardiovascular exam: PRESENT: RRR, +S1, +S2. ABSENT: tachycardia GI/Abdominal exam: PRESENT: soft. ABSENT: rebound, rigid, tenderness Extremities exam: PRESENT: pedal edema, +2 edema Neurological exam: PRESENT: alert, awake, oriented to person, oriented to place, oriented to time, oriented to situation Results Laboratory Results: 06/21/19 04:55 06/21/19 04:55 06/21/19 06/21/19 04:55 04:55 WBC 6.2 RBC 2.87 L Hgb 8.8 L Hct 25.2 L MCV 88 MCH 30.5 MCHC 34.7 RDW 15.3 H Plt Count 306 Sodium 136.8 L Potassium 4.3 Chloride 99 Carbon Dioxide 28 Anion Gap 10 BUN 51 H Creatinine 4.15 H Est GFR ( Amer) 18 L Glucose 121 H Calcium 8.4 Magnesium 2.0 06/16/19 01:45 Blood Blood Culture - Final NO GROWTH IN 5 DAYS 06/16/19 01:35 Blood Blood Culture - Final NO GROWTH IN 5 DAYS 06/16/19 06/16/19 06/16/19 01:35 06:06 06:06 Creatine Kinase 277 H CK-MB (CK-2) 3.43 Troponin I 0.025 0.054 NT-Pro-B Natriuret Pep 3390 H 06/16/19 06/16/19 06/16/19 10:30 10:30 16:14 Creatine Kinase 226 H 215 H CK-MB (CK-2) 2.71 Troponin I 0.071 NT-Pro-B Natriuret Pep 06/16/19 16:14 Creatine Kinase CK-MB (CK-2) 2.80 Troponin I 0.074 NT-Pro-B Natriuret Pep Impressions: Chest X-Ray 06/16/19 01:49 IMPRESSION: No significant change. Assessment and Plan - Diagnosis (1) Acute on chronic combined systolic and diastolic congestive heart failure Is this a current diagnosis for this admission?: Yes Plan: Echo on last visit 04/2019 showing EF of 40 to 45% with grade 1/4 diastolic dysfunction, concentric LVH RVSP 55 to 60 mmHg Will need optimal blood pressure control and diuresis and better compliance with dietary recommendations. Fluid restriction. Dietitian consulted. Continue Coreg, Imdur and valsartan. Lasix and metolazone still on hold. Dr. King started patient on dobutamine today to help forward flow for renal perfusion given worsening kidney function and given pulmonary hypertension. (2) Acute respiratory failure with hypoxia Is this a current diagnosis for this admission?: Yes Plan: Likely secondary to pulmonary edema from decompensated heart failure. Hopefully will be able to wean oxygen with effective diuresis. Will attempt to wean oxygen further today. (3) Iron deficiency anemia Qualifiers: Iron deficiency anemia type: unspecified iron deficiency Qualified Code(s): D50.9 - Iron deficiency anemia, unspecified Is this a current diagnosis for this admission?: Yes Plan: Iron studies showing normal B12 and folic acid but iron deficient. Patient also reports black stools but no abdominal pain, hematochezia hematemesis or coffee- ground emesis. States last colonoscopy was in [place] and was 5 years ago which was unrevealing. Due for repeat colonoscopy. Status post 1 unit of PRBCs on 06/17. Hemoglobin stabilized today after trending down prior Continue Protonix twice daily Ultimately, will need endoscopic evaluation at some point but as for now we will need to optimize his respiratory status and CHF first. (4) Diabetes mellitus type 2 in obese Is this a current diagnosis for this admission?: Yes Plan: Continue glipizide. Carb restricted diet. Sliding scale insulin. (5) Chronic kidney disease, stage IV (severe) Is this a current diagnosis for this admission?: Yes Plan: Nephrology following. Avoid nephrotoxic meds. Baseline noted of 3-3.5. Monitor creatinine closely. Did receive 500 cc of fluid back. Plan as above in the problem #1. (6) Hypertension Qualifiers: Hypertension type: essential hypertension Qualified Code(s): I10 - Essential (primary) hypertension Is this a current diagnosis for this admission?: Yes Plan: Looks better controlled. valsartan 160 mg daily, nifedipine, Imdur, Coreg. - Time Time Spent with patient: 15-24 minutes
[2019-06-21] MEDS: INSULIN REG, HUMAN 100 UNIT/ML 3 ML VIAL (PYX) SUBCUT SCH ×2 (17:02→21:32)
[2019-06-21] MEDS: MELATONIN 3 MG TABLET PO SCH (21:50)
[2019-06-21] MEDS: ATORVASTATIN CALCIUM 40 MG TABLET PO SCH (21:50)
[2019-06-22] MEDS: INSULIN REG, HUMAN 100 UNIT/ML 3 ML VIAL (PYX) SUBCUT SCH ×4 (08:37→21:28)
[2019-06-22] MEDS ORDERED: ERGOCALCIFEROL (VITAMIN D2) 50000 UNIT (1.25 MG) CAPSULE PO SCH (08:45)
[2019-06-22 08:48] LABS: HEMATOCRIT 27.5 % (37.9-51.0); HEMOGLOBIN 9.4 g/dL (13.5-17.0); MEAN CORPUSCULAR HEMOGLOBIN 29.8 pg (27.0-33.4); MEAN CORPUSCULAR HGB CONC 34.2 g/dL (32.0-36.0); MEAN CORPUSCULAR VOLUME 87 fl (80-97); PLATELET COUNT 352 10^3/uL (150-450); RED BLOOD COUNT 3.16 10^6/uL (4.35-5.55); RED CELL DISTRIBUTION WIDTH 15.7 % (11.5-14.0); WHITE BLOOD COUNT 5.3 10^3/uL (4.0-10.5)
[2019-06-22 09:16] LABS: ANION GAP 8 (5-19); BLOOD UREA NITROGEN 51 mg/dL (7-20); CALCIUM 8.7 mg/dL (8.4-10.2); CARBON DIOXIDE 29 mmol/L (22-30); CHLORIDE 98 mmol/L (98-107); GLUCOSE 165 mg/dL (75-110); POTASSIUM 4.3 mmol/L (3.6-5.0)
[2019-06-22] MEDS: CARVEDILOL 12.5 MG TABLET PO SCH ×2 (10:00→21:26)
[2019-06-22] MEDS: NIFEDIPINE 30 MG TAB.ER.24 PO SCH ×2 (10:00→21:25)
[2019-06-22] MEDS: MAGNESIUM OXIDE 400 MG TABLET PO SCH (10:00)
[2019-06-22] MEDS: DOCUSATE SODIUM 100 MG CAPSULE PO SCH (10:00)
[2019-06-22] MEDS: ASPIRIN 81 MG TABLET, ENT COATED PO SCH (10:00)
[2019-06-22] MEDS: PANTOPRAZOLE SODIUM 40 MG VIAL IV SCH (10:00)
[2019-06-22] MEDS: ISOSORBIDE MONONITRATE 60 MG TAB.ER.24H PO SCH (10:03)
[2019-06-22] MEDS: VALSARTAN 160 MG TABLET PO SCH (10:03)
--- NOTE | 2019-06-22 11:55 | PDOC PROGRESS REPORT ---
Subjective Progress Note for:: 06/22/19 Subjective:: Breathing is improving. Able to wean to 1 L NC while I was in the room today Reason For Visit: ACUTE PULMONARY EDEMA WITH CHF,ACUTE RESPIRATORY Physical Exam Vital Signs: Temp Pulse Resp BP Pulse Ox 97.4 F 75 16 134/74 H 97 06/22/19 07:24 06/22/19 11:00 06/22/19 07:24 06/22/19 11:00 06/22/19 10:02 Intake & Output 06/21/19 06/22/19 06/23/19 06:59 06:59 06:59 Intake Total 720 1277 Output Total 525 1000 Balance 195 277 Weight 119.6 kg General appearance: PRESENT: no acute distress, cooperative Neck exam: ABSENT: JVD Respiratory exam: PRESENT: crackles - a lot better, unlabored. ABSENT: tachypnea, wheezes Cardiovascular exam: PRESENT: RRR, +S1, +S2. ABSENT: tachycardia GI/Abdominal exam: PRESENT: soft. ABSENT: rebound, rigid, tenderness Extremities exam: PRESENT: +2 edema Neurological exam: PRESENT: alert, awake, oriented to person, oriented to place, oriented to time Results Laboratory Results: 06/22/19 08:42 06/22/19 08:42 06/22/19 06/22/19 08:42 08:42 WBC 5.3 RBC 3.16 L Hgb 9.4 L Hct 27.5 L MCV 87 MCH 29.8 MCHC 34.2 RDW 15.7 H Plt Count 352 Sodium 135.0 L Potassium 4.3 Chloride 98 Carbon Dioxide 29 Anion Gap 8 BUN 51 H Creatinine 4.05 H Est GFR ( Amer) 18 L Glucose 165 H Calcium 8.7 Magnesium 2.1 06/16/19 06/16/19 06/16/19 01:35 06:06 06:06 Creatine Kinase 277 H CK-MB (CK-2) 3.43 Troponin I 0.025 0.054 NT-Pro-B Natriuret Pep 3390 H 06/16/19 06/16/19 06/16/19 10:30 10:30 16:14 Creatine Kinase 226 H 215 H CK-MB (CK-2) 2.71 Troponin I 0.071 NT-Pro-B Natriuret Pep 06/16/19 16:14 Creatine Kinase CK-MB (CK-2) 2.80 Troponin I 0.074 NT-Pro-B Natriuret Pep Impressions: Chest X-Ray 06/16/19 01:49 IMPRESSION: No significant change. Assessment and Plan - Diagnosis (1) Acute on chronic combined systolic and diastolic congestive heart failure Is this a current diagnosis for this admission?: Yes Plan: Echo on last visit 04/2019 showing EF of 40 to 45% with grade 1/4 diastolic dysfunction, concentric LVH RVSP 55 to 60 mmHg Will need optimal blood pressure control and diuresis and better compliance with dietary recommendations. Fluid restriction. Dietitian consulted. Continue Coreg, Imdur and valsartan. Lasix and metolazone still on hold due to worsening renal function. On dobutamine by cardiology to help forward flow for renal perfusion and given pulmonary hypertension. Nifedipine increased. (2) Acute respiratory failure with hypoxia Is this a current diagnosis for this admission?: Yes Plan: Likely secondary to pulmonary edema from decompensated heart failure. Should be able to wean off oxygen completely today. Down to 1 L. (3) Iron deficiency anemia Qualifiers: Iron deficiency anemia type: unspecified iron deficiency Qualified Code(s): D50.9 - Iron deficiency anemia, unspecified Is this a current diagnosis for this admission?: Yes Plan: Iron studies reviewed. Anemia secondary to CKD but with iron deficiency given iron saturation of 7%. Patient reported black stools initially but no abdominal pain, hematochezia hematemesis or coffee-ground emesis. States last colonoscopy was in [place] and was 5 years ago which was unrevealing. Due for repeat colonoscopy. Never had EGD. Status post 1 unit of PRBCs on 06/17. Hemoglobin stabilized over the past couple of days. Continue Protonix twice daily Ultimately, will need endoscopic evaluation at some point but as of now, hemoglobin remains stabilized. (4) Diabetes mellitus type 2 in obese Is this a current diagnosis for this admission?: Yes Plan: Has not required glipizide. Carb restricted diet. Sliding scale insulin. (5) Chronic kidney disease, stage IV (severe) Is this a current diagnosis for this admission?: Yes Plan: Nephrology following. Avoid nephrotoxic meds. Baseline noted of 3-3.5. Monitor creatinine closely. Plan as above in the problem #1. (6) Hypertension Qualifiers: Hypertension type: essential hypertension Qualified Code(s): I10 - E ssential (primary) hypertension Is this a current diagnosis for this admission?: Yes Plan: Looks better controlled. valsartan, nifedipine, Imdur, Coreg. - Time Time Spent with patient: Less than 15 minutes
[2019-06-22] MEDS ORDERED: NITROGLYCERIN 0.4 MG/TAB 25 TAB/BOTTLE ONE (14:29)
--- NOTE | 2019-06-22 14:29 | PDOC PROGRESS REPORT ---
Subjective Progress Note for:: 06/22/19 Subjective:: Patient was seen sitting in his chair in his room. At the time he claim to be feeling better but still had some SOB. Diuretics are currently on hold due to increasing creatinine. He was also started on dobutamine to help with increasing his cardiac output. Reason For Visit: ACUTE PULMONARY EDEMA WITH CHF,ACUTE RESPIRATORY Physical Exam Vital Signs: Temp Pulse Resp BP Pulse Ox 97.4 F 76 16 126/63 H 97 06/22/19 07:24 06/22/19 12:00 06/22/19 07:24 06/22/19 12:00 06/22/19 10:02 Intake & Output 06/21/19 06/22/19 06/23/19 06:59 06:59 06:59 Intake Total 720 1277 Output Total 525 1000 Balance 195 277 Weight 119.6 kg General appearance: PRESENT: no acute distress, well-developed, well-nourished Mouth exam: PRESENT: moist, neck supple Neck exam: ABSENT: JVD, tracheal deviation Respiratory exam: PRESENT: crackles - -corse crackles in the bases of his lungs, unlabored. ABSENT: accessory muscle use, clear to auscultation liseth, wheezes Cardiovascular exam: PRESENT: +S1, +S2 GI/Abdominal exam: PRESENT: normal bowel sounds, soft. ABSENT: ascites, organomegaly, tenderness Extremities exam: PRESENT: other - -trace+. ABSENT: pedal edema, +1 edema, +2 edema Neurological exam: PRESENT: alert, awake, oriented to person, oriented to place, oriented to time, oriented to situation Psychiatric exam: PRESENT: appropriate affect, normal mood Skin exam: PRESENT: dry, intact, warm. ABSENT: cyanosis Results Laboratory Results: 06/22/19 08:42 06/22/19 08:42 06/22/19 06/22/19 08:42 08:42 WBC 5.3 RBC 3.16 L Hgb 9.4 L Hct 27.5 L MCV 87 MCH 29.8 MCHC 34.2 RDW 15.7 H Plt Count 352 Sodium 135.0 L Potassium 4.3 Chloride 98 Carbon Dioxide 29 Anion Gap 8 BUN 51 H Creatinine 4.05 H Est GFR ( Amer) 18 L Glucose 165 H Calcium 8.7 Magnesium 2.1 06/16/19 06/16/19 06/16/19 01:35 06:06 06:06 Creatine Kinase 277 H CK-MB (CK-2) 3.43 Troponin I 0.025 0.054 NT-Pro-B Natriuret Pep 3390 H 06/16/19 06/16/19 06/16/19 10:30 10:30 16:14 Creatine Kinase 226 H 215 H CK-MB (CK-2) 2.71 Troponin I 0.071 NT-Pro-B Natriuret Pep 06/16/19 16:14 Creatine Kinase CK-MB (CK-2) 2.80 Troponin I 0.074 NT-Pro-B Natriuret Pep Impressions: Chest X-Ray 06/16/19 01:49 IMPRESSION: No significant change. Assessment & Plan - Diagnosis (1) Acute on chronic combined systolic and diastolic congestive heart failure Is this a current diagnosis for this admission?: Yes Plan: per cardiology, diuretics currently on hold. Patient placed on dobutamine to help increase cardiac output. Will look to get a chest x-ray today to see how much is fluid in lungs vs atelectasis. Need strict I's&O's. (2) Acute respiratory failure with hypoxia Is this a current diagnosis for this admission?: Yes Plan: Mostly from CHF and possibly some atelectsis, adding on an incentive spirometer to help with atelectasis. Also getting a chest x-ray. (3) Chronic kidney disease, stage IV (severe) Is this a current diagnosis for this admission?: Yes Plan: looks to be overdiuresed, will look to get a chest x-ray to confirm whether his lungs have fluid. Continue to hold diuretics for now. Continue on dobutamine to help increase the blood flow to the kidenys. (4) Iron deficiency anemia Qualifiers: Iron deficiency anemia type: unspecified iron deficiency Qualified Code(s): D50.9 - Iron deficiency anemia, unspecified Is this a current diagnosis for this admission?: Yes Plan: iron saturations were previously low and then he was transfused two units of blood. His iron panel will need to be rechecked a little farther out from get the transfusion. Patient will most likely need an iron fusion to prevent him from dropping. No indication to start retacrit with low iron saturating and ferritins. (5) Diabetes mellitus type 2 in obese Is this a current diagnosis for this admission?: Yes
[2019-06-22] MEDS ORDERED: ASPIRIN 81 MG TABLET, CHEWABLE ONE (14:40)
[2019-06-22] MEDS ORDERED: MORPHINE SULFATE 10 MG/ML INJ ONE ×2 (14:48→15:00)
--- NOTE | 2019-06-22 15:17 | EKG REPORT ---
SEVERITY:- ABNORMAL ECG - SINUS RHYTHM PROBABLE LEFT ATRIAL ABNORMALITY BORDERLINE LEFT AXIS DEVIATION BORDERLINE PROLONGED QT INTERVAL POSSIBLE LVH WITH STRAIN.DIFFUSE ST DEPRESSIONANTERIOR LEADS : Confirmed by: Deonna Iniguez MD 22-Jun-2019 15:16:41
[2019-06-22 15:19] LABS: ALKALINE PHOSPHATASE 74 U/L (38-126); ANION GAP 8 (5-19); ASPARTATE AMINO TRANSFERASE 18 U/L (17-59); BILIRUBIN,TOTAL 0.7 mg/dL (0.2-1.3); BLOOD UREA NITROGEN 50 mg/dL (7-20); CALCIUM 8.8 mg/dL (8.4-10.2); CARBON DIOXIDE 26 mmol/L (22-30); CHLORIDE 100 mmol/L (98-107); CREATINE KINASE 202 U/L (55-170); GLUCOSE 162 mg/dL (75-110); PHOSPHORUS 5.7 mg/dL (2.5-4.5); POTASSIUM 4.5 mmol/L (3.6-5.0); TOTAL PROTEIN 6.7 g/dL (6.3-8.2)
[2019-06-22] MEDS ORDERED: CYCLOBENZAPRINE HCL 10 MG TABLET PO PRN (15:22)
[2019-06-22] MEDS ORDERED: CYCLOBENZAPRINE HCL 10 MG TABLET PO ONE ×2 (15:22→15:30)
[2019-06-22 15:32] LABS: CREATINE KINASE MB 3.06 ng/mL (<4.55); TROPONIN I 0.017 ng/mL
[2019-06-22] MEDS ORDERED: PANTOPRAZOLE SODIUM 40 MG PACKET.DR NG SCH (16:00)
--- NOTE | 2019-06-22 16:18 | RADIOLOGY REPORT (SQ) ---
EXAM DESCRIPTION: CHEST SINGLE VIEW IMAGES COMPLETED DATE/TIME: 06/22/2019 3:15 pm REASON FOR STUDY: SOB/CHF COMPARISON: AP view of the chest from 03/16/2019. EXAM PARAMETERS: NUMBER OF VIEWS: One view. TECHNIQUE: An AP view of the chest was obtained. RADIATION DOSE: NA LIMITATIONS: None. FINDINGS: LUNGS AND PLEURA: Improved aeration of the bases. The costophrenic sulci remain blunted. There is no pneumothorax. MEDIASTINUM AND HILAR STRUCTURES: Stable mediastinal and hilar contours. HEART AND VASCULAR STRUCTURES: Stable enlarged cardiac silhouette. BONES: No acute findings. HARDWARE: None in the chest. OTHER: No other finding. IMPRESSION: The bibasilar opacities described on the correlative radiograph from 06/16/2019 have decr eased - correlate for improved volume status. The costophrenic sulci remain blunted. TECHNICAL DOCUMENTATION: JOB ID: [id number] 2010 [employer]- All Rights Reserved Reading location - IP/workstation name: [email or web address]
--- NOTE | 2019-06-22 16:45 | Progress Note ---
Provider Note Provider Note: [employer] OFFICER was called earlier this afternoon. On presentation, patient was writhing in pain. He complained of pain in the back of his neck with radiation to the left shoulder. Had some tingling in his fingertips as well. The pain was occurring in waves. He denies any cardiac chest pain and denied any shortness of breath. Vital signs were obtained at the moment which were all stable. Chest x-ray actually showed improvement of pulmonary edema and no widening of mediastinum. Trial of nitroglycerin x2 given but not much notable effect. He was given aspirin 324 mg chewable. EKG was obtained which showed ST depressions in V3, V4 as well as some repolarization changes in V3, V4, V5, leads I and aVL. Compared with previous EKGs, these findings did not seem all that acute and basically be due to hypertensive strain pattern. I discussed findings with patient's banquet waiter/waitress Dr. King concurs that EKG pattern is from hypertensive strain pattern, recent Lexiscan showed no ischemic findings and that patient was unlikely to be having an MD but she still be ruled out with serial troponins. Dobutamine drip was discontinued as well. First troponin obtained was minimal. Will obtain 1 more than 3 hours. Patient given some morphine to help with pain. Also placed on some Flexeril for muscle spasms. We will follow-up results.
[2019-06-22] MEDS: ATORVASTATIN CALCIUM 40 MG TABLET PO SCH (21:26)
[2019-06-22] MEDS: MELATONIN 3 MG TABLET PO SCH (21:26)
[2019-06-23 05:50] LABS: HEMATOCRIT 25.7 % (37.9-51.0); HEMOGLOBIN 8.9 g/dL (13.5-17.0); MEAN CORPUSCULAR HEMOGLOBIN 30.3 pg (27.0-33.4); MEAN CORPUSCULAR HGB CONC 34.8 g/dL (32.0-36.0); MEAN CORPUSCULAR VOLUME 87 fl (80-97); PLATELET COUNT 351 10^3/uL (150-450); RED BLOOD COUNT 2.95 10^6/uL (4.35-5.55); RED CELL DISTRIBUTION WIDTH 15.4 % (11.5-14.0); WHITE BLOOD COUNT 5.6 10^3/uL (4.0-10.5)
[2019-06-23] MEDS ORDERED: PANTOPRAZOLE SODIUM 40 MG PACKET.DR NG SCH (06:00)
[2019-06-23 06:08] LABS: ANION GAP 9 (5-19); BLOOD UREA NITROGEN 53 mg/dL (7-20); CALCIUM 8.7 mg/dL (8.4-10.2); CARBON DIOXIDE 27 mmol/L (22-30); CHLORIDE 100 mmol/L (98-107); GLUCOSE 114 mg/dL (75-110); POTASSIUM 4.5 mmol/L (3.6-5.0)
[2019-06-23] MEDS: INSULIN REG, HUMAN 100 UNIT/ML 3 ML VIAL (PYX) SUBCUT SCH ×4 (08:04→22:12)
[2019-06-23] MEDS: PANTOPRAZOLE SODIUM 40 MG PACKET.DR PO SCH ×2 (08:07→17:08)
[2019-06-23] MEDS: MAGNESIUM OXIDE 400 MG TABLET PO SCH (09:24)
[2019-06-23] MEDS: CARVEDILOL 12.5 MG TABLET PO SCH ×2 (09:24→21:24)
[2019-06-23] MEDS: ASPIRIN 81 MG TABLET, ENT COATED PO SCH (09:25)
[2019-06-23] MEDS: DOCUSATE SODIUM 100 MG CAPSULE PO SCH (09:25)
[2019-06-23] MEDS: NIFEDIPINE 30 MG TAB.ER.24 PO SCH ×2 (09:25→21:24)
[2019-06-23] MEDS: ISOSORBIDE MONONITRATE 60 MG TAB.ER.24H PO SCH (09:25)
--- NOTE | 2019-06-23 14:00 | Progress Note ---
Provider Note Provider Note: CARDIOLOGY PROGRESS NOTE by Dr. Deonna Iniguez on 06/23/2019. SUBJECTIVE: The patient yesterday evening had left-sided neck pain and shoulder pain with numbness in his hands. And the patient seemed to have slumped down. His EKG showed some minor changes and hence his dobutamine was discontinued and the patient had serial cardiac enzymes done. These were negative for an acute coronary event. The patient now states that yesterday when he had the neck pain it hurt when he moved his neck. It is clearly it was musculoskeletal. Hence we will restart the patient's dobutamine in view of the patient's declining urine output. He denies any chest pain or discomfort. There is no shortness of breath at rest. There is no arrhythmia seen on the monitor. The patient denies any PND. He does have orthopnea. His leg edema is stable. There is no TIA CVA symptoms. PHYSICAL EXAMINATION: The patient is mildly obese. At present in no acute distress. Selected Entries 06/23/19 16:22 Temperature Oral Source Pulse Rate 75 Respiratory 20 Rate Blood Pressure 135/77 H Blood Pressure 96 Mean BP Location Left Arm BP Position Sitting O2 Sat by Pulse 93 Oximetry Oxygen Flow 2.00 Rate Oxygen Delivery Nasal Cannula Method HEAD: Is atraumatic normocephalic. EYES: Pupils are equal round regular reactive to light. ENT is negative. NECK: Is supple there is mild JVD present. Carotids are equal there is no bruits. There is no lymphadenopathy. There is no goiter. There is no accessory muscle respiration use. LUNGS: There there is no bibasilar rales on today's exam.No rhonchi.HEART : S1 and S2 is heard. There is no S3 gallop. There is no S4 gallop. There is murmur mitral regurgitation and tricuspid regurgitation present. There is no rub. ABDOMEN: Soft mildly obese. Nontender there is no paraspinal megaly. Bowel sounds are well heard. Extremities femorals are diminished. Leg pulses are diminished there is chronic lymphedema with also trace edema bilaterally. There is chronic venous stasis dermatitis changes. Leg pulses are difficult to palpate. There is no DVT or cellulitis. There is no cyanosis or clubbing. PLASMA CENTER TECHNICIAN: The patient is awake, oriented x3 and with no focal deficits. PSYCHIATRIC: Patient judgment insight intact his affect is normal. Patient's 24-hour intake is 1223 mL. His output is 225 mL. Labs- All tests 24 hr 06/23/19 06/23/19 06/23/19 04:53 04:53 07:42 WBC 5.6 RBC 2.95 L Hgb 8.9 L Hct 25.7 L MCV 87 MCH 30.3 MCHC 34.8 RDW 15.4 H Plt Count 351 Sodium 135.6 L Potassium 4.5 Chloride 100 Carbon Dioxide 27 Anion Gap 9 BUN 53 H Creatinine 4.19 H Est GFR ( Amer) 18 L Est GFR (MDRD) Non-Af 15 L Glucose 114 H POC Glucose 118 H Calcium 8.7 Magnesium 2.2 06/23/19 06/23/19 06/23/19 11:34 16:25 21:02 WBC RBC Hgb Hct MCV MCH MCHC RDW Plt Count Sodium Potassium Chloride Carbon Dioxide Anion Gap BUN Creatinine Est GFR ( Amer) Est GFR (MDRD) Non-Af Glucose POC Glucose 188 H 156 H 157 H Calcium Magnesium Chest X-Ray 06/16/19 01:49 IMPRESSION: No significant change. Chest X-Ray 06/22/19 14:13 IMPRESSION: The bibasilar opacities described on the correlative radiograph from 06/16/2019 have decreased - correlate for improved volume status. The costophrenic sulci remain blunted. IMPRESSION RECOMMENDATION: 1. Neck and shoulder pain. This is clearly musculoskeletal. The patient's cardiac enzymes have been negative. Hence we will restart the patient's dobutamine drip at 2.5 mcg/kg/min. This is in view of the patient's decreased urine output. 2.Anemia: Most likely related to chronic renal insufficiency, and also iron deficiency.. The patient did get packed RBC infusion. In spite of this hemoglobin still is low. Patient will benefit from iron transfusion. 3. Acute on chronic biventricular systolic heart failure: Continue diuresis. Continue his anti-cardiomyopathy medication, including Diovan and Coreg 4. Acute on chronic renal failure: Renal function is worsened. This is most likely secondary to overdiuresis. The patient diuretics has been held. Suspect that the patient's decreased urine output and worsening renal function secondary to decrease in cardiac output. Will start the patient on dobutamine at 2.5 mg/kg/min. 5. Dilated cardiomyopathy with moderately reduced LV ejection fraction 6. Moderate to severe pulmonary hypertension: The patient is tolerating Procardia. Will increase as tolerated. 7. Hypertension: Continue antihypertensives 8. Diabetes mellitus: Continue antidiabetic regimen and Accu-Cheks as per prot ocol Medications reviewed. Medications adjusted. Dobutamine drip restarted. Medical history making is of high complexity. Medical regimen and management plan discussed with attending provider on the case. 40 minutes spent as patient more than 50% time spent in direct patient care. Will follow.
[2019-06-23] MEDS: DOBUTAMINE HCL/D5W 500 MG/250 ML RTUINJ IV PRN (14:41)
--- NOTE | 2019-06-23 15:21 | PDOC PROGRESS REPORT ---
Subjective Progress Note for:: 06/23/19 Subjective:: No adverse events overnight. No new complaints. He is off oxygen now. He was sitting up at the bedside eating lunch and speaking in complete sentences. He said he has ambulated in the hallway a little bit. He still has a lot of arm and leg swelling. Reason For Visit: ACUTE PULMONARY EDEMA WITH CHF,ACUTE RESPIRATORY Physical Exam Vital Signs: Temp Pulse Resp BP Pulse Ox 97.6 F 75 16 117/67 90 L 06/23/19 11:34 06/23/19 14:52 06/23/19 11:34 06/23/19 14:52 06/23/19 11:34 Intake & Output 06/22/19 06/23/19 06/24/19 06:59 06:59 06:59 Intake Total 1277 1233 480 Output Total 1000 225 275 Balance 277 1008 205 Weight 119.6 kg 119.7 kg General appearance: PRESENT: no acute distress, cooperative, disheveled, obese Respiratory exam: PRESENT: clear to auscultation liseth, symmetrical, unlabored. ABSENT: accessory muscle use, crackles, prolonged expiratory phas, retraction, rhonchi, tachypnea, wheezes Cardiovascular exam: PRESENT: RRR, +S1, +S2 Pulses: PRESENT: normal carotid pulses Vascular exam: PRESENT: normal capillary refill GI/Abdominal exam: PRESENT: normal bowel sounds, soft. ABSENT: distended, guarding, rebound, tenderness Extremities exam: PRESENT: pedal edema, +2 edema - Upper and lower extremities. ABSENT: clubbing Musculoskeletal exam: PRESENT: normal inspection. ABSENT: deformity Neurological exam: PRESENT: alert, awake, oriented to person, oriented to place, oriented to situation Psychiatric exam: PRESENT: appropriate affect, normal mood Skin exam: PRESENT: dry, warm Results Laboratory Results: 06/23/19 04:53 06/23/19 04:53 06/22/19 06/23/19 06/23/19 14:44 04:53 04:53 WBC 5.6 RBC 2.95 L Hgb 8.9 L Hct 25.7 L MCV 87 MCH 30.3 MCHC 34.8 RDW 15.4 H Plt Count 351 Sodium 134.4 L 135.6 L Potassium 4.5 4.5 Chloride 100 100 Carbon Dioxide 26 27 Anion Gap 8 9 BUN 50 H 53 H Creatinine 4.16 H 4.19 H Est GFR ( Amer) 18 L 18 L Glucose 162 H 114 H Calcium 8.8 8.7 Phosphorus 5.7 H Magnesium 2.3 2.2 Total Bilirubin 0.7 AST 18 Alkaline Phosphatase 74 Total Protein 6.7 Albumin 3.0 L 06/16/19 06/16/19 06/16/19 01:35 06:06 06:06 Creatine Kinase 277 H CK-MB (CK-2) 3.43 Troponin I 0.025 0.054 NT-Pro-B Natriuret Pep 3390 H 06/16/19 06/16/19 06/16/19 10:30 10:30 16:14 Creatine Kinase 226 H 215 H CK-MB (CK-2) 2.71 Troponin I 0.071 NT-Pro-B Natriuret Pep 06/16/19 06/22/19 06/22/19 16:14 14:44 14:44 Creatine Kinase 202 H CK-MB (CK-2) 2.80 3.06 Troponin I 0.074 0.017 NT-Pro-B Natriuret Pep 06/22/19 17:55 Creatine Kinase CK-MB (CK-2) Troponin I 0.019 NT-Pro-B Natriuret Pep Impressions: Chest X-Ray 06/22/19 14:13 IMPRESSION: The bibasilar opacities described on the correlative radiograph from 06/16/2019 have decreased - correlate for improved volume status. The costophrenic sulci remain blunted. Assessment and Plan - Diagnosis (1) Acute on chronic combined systolic and diastolic congestive heart failure Is this a current diagnosis for this admission?: Yes Plan: Dobutamine is been discontinued. Lasix and Zaroxolyn were on hold because of his renal function. His creatinine seems to have stabilized, so I am going to put him back on a smaller amount of Lasix to try to get some more of the fluid off of him. (2) Diabetes mellitus type 2 in obese Is this a current diagnosis for this admission?: Yes Plan: Diabetic diet with a sliding scale (3) Hypoxia Is this a current diagnosis for this admission?: Yes Plan: Resolved (4) Acute kidney injury superimposed on chronic kidney disease Is this a current diagnosis for this admission?: Yes Plan: Creatinine is stable from yesterday. Start him back on a small dose of Lasix and monitor his urine output and creatinine. - Time Time Spent with patient: 15-24 minutes
--- NOTE | 2019-06-23 19:23 | PDOC PROGRESS REPORT ---
Subjective Progress Note for:: 06/23/19 Subjective:: Patient is known to me with chronic kidney disease stage IV associated with nephrotic range proteinuria in the background of diabetes mellitus,hypertension and biventricular CHF. Patient states that he feels pretty good today. He denies any chest pains nor neck pains no shortness of breath. Yesterday [facility] was called because of episode of neck pain thought to be anginal equivalent. Patient remains to be on dobutamine drip. He has been off furosemide and metolazone since June 18. He seems to be hemodynamically stable. I am not quite sure if his urine output is adequately quantified. Reason For Visit: ACUTE PULMONARY EDEMA WITH CHF,ACUTE RESPIRATORY Physical Exam Vital Signs: Temp Pulse Resp BP Pulse Ox 97.4 F 80 16 125/70 91 L 06/23/19 03:56 06/23/19 07:43 06/23/19 07:43 06/23/19 07:43 06/23/19 07:43 Intake & Output 06/22/19 06/23/19 06/24/19 06:59 06:59 06:59 Intake Total 1277 1233 Output Total 1000 225 Balance 277 1008 Weight 119.6 kg 119.7 kg Exam: General appearance: PRESENT: no acute distress, cooperative, well-developed, well-nourished Head exam: PRESENT: atraumatic, normocephalic Eye exam: PRESENT: conjunctiva pale, PERRLA. ABSENT: scleral icterus Neck exam: ABSENT: JVD Respiratory exam: PRESENT: Normal breath sounds. ABSENT: crackles, rales, rhonchi, unlabored, wheezes Cardiovascular exam: PRESENT: Regular rate rhythm -+S1, +S2. ABSENT: diastolic murmur, systolic murmur GI/Abdominal exam: PRESENT: normal bowel sounds, soft. ABSENT: guarding, mass, tenderness Extremities exam: Grade 1 bilateral lower extremity pitting edema Neurological exam: PRESENT: alert, awake, oriented to person, place and time. Skin exam: PRESENT: dry, warm, Cardiovascular exam: PRESENT: +S1, +S2 GI/Abdominal exam: PRESENT: normal bowel sounds, soft. ABSENT: ascites, organomegaly, tenderness Results Laboratory Results: 06/23/19 04:53 06/23/19 04:53 06/22/19 06/23/19 06/23/19 14:44 04:53 04:53 WBC 5.6 RBC 2.95 L Hgb 8.9 L Hct 25.7 L MCV 87 MCH 30.3 MCHC 34.8 RDW 15.4 H Plt Count 351 Sodium 134.4 L 135.6 L Potassium 4.5 4.5 Chloride 100 100 Carbon Dioxide 26 27 Anion Gap 8 9 BUN 50 H 53 H Creatinine 4.16 H 4.19 H Est GFR ( Amer) 18 L 18 L Glucose 162 H 114 H Calcium 8.8 8.7 Phosphorus 5.7 H Magnesium 2.3 2.2 Total Bilirubin 0.7 AST 18 Alkaline Phosphatase 74 Total Protein 6.7 Albumin 3.0 L 06/16/19 06/16/19 06/16/19 01:35 06:06 06:06 Creatine Kinase 277 H CK-MB (CK-2) 3.43 Troponin I 0.025 0.054 NT-Pro-B Natriuret Pep 3390 H 06/16/19 06/16/19 06/16/19 10:30 10:30 16:14 Creatine Kinase 226 H 215 H CK-MB (CK-2) 2.71 Troponin I 0.071 NT-Pro-B Natriuret Pep 06/16/19 06/22/19 06/22/19 16:14 14:44 14:44 Creatine Kinase 202 H CK-MB (CK-2) 2.80 3.06 Troponin I 0.074 0.017 NT-Pro-B Natriuret Pep 06/22/19 17:55 Creatine Kinase CK-MB (CK-2) Troponin I 0.019 NT-Pro-B Natriuret Pep Impressions: Chest X-Ray 06/22/19 14:13 IMPRESSION: The bibasilar opacities described on the correlative radiograph from 06/16/2019 have decreased - correlate for improved volume status. The costo phrenic sulci remain blunted. Assessment & Plan - Diagnosis (1) Acute kidney injury superimposed on chronic kidney disease Is this a current diagnosis for this admission?: Yes Plan: Patient is nonoliguric. Acute worsening of kidney function more likely secondary to CHF and rapid diuresis. Diuretics has been on hold since June 18. Kidney function is been stable for the last 4 days. I would not be surprised that the patient is reaching a new baseline kidney function. There is no indication for renal replacement therapy at this time. (2) Acute on chronic combined systolic and diastolic congestive heart failure Is this a current diagnosis for this admission?: Yes Plan: Currently on dobutamine drip. May possibly restart low-dose diuretics slowly. Cardiology on board. (3) Anemia in chronic kidney disease (CKD) Is this a current diagnosis for this admission?: Yes Plan: Possibly need Retacrit after correction of iron deficiency. (4) Iron deficiency anemia Qualifiers: Iron deficiency anemia type: unspecified iron deficiency Qualified Code(s): D50.9 - Iron deficiency anemia, unspecified Is this a current diagnosis for this admission?: Yes Plan: Iron is low at 14, T sat of 7 and ferritin of 250. Stool for occult blood is negative. Will give IV Injectafer. (5) Chronic kidney disease, stage IV (severe) Is this a current diagnosis for this admission?: Yes Plan: Baseline creatinine around 3.0. Patient has not associated no nephrotic range proteinuria which could be related to diabetic nephropathy with contribution of hypertension and possibly cardiorenal syndrome. Patient has previously declined kidney biopsy for his nephrotic range proteinuria. 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 - Time Time with patient: 15-25 minutes
[2019-06-23] MEDS ORDERED: FERRIC CARBOXYMALTOSE 750 MG in NORMAL SALINE 100 ML IV ONE (21:00)
[2019-06-23] MEDS: FUROSEMIDE INJ/PF 20 MG/2 ML SDV IV SCH (21:25)
[2019-06-23] MEDS: MELATONIN 3 MG TABLET PO SCH (21:25)
[2019-06-23] MEDS: ATORVASTATIN CALCIUM 40 MG TABLET PO SCH (22:12)
[2019-06-24 06:04] LABS: ABSOLUTE BASOPHILS # (AUTO) 0.1 10^3/uL (0.0-0.2); ABSOLUTE EOSINOPHILS # (AUTO) 0.3 10^3/uL (0.0-0.6); ABSOLUTE LYMPHOCYTES (AUTO) 1.1 10^3/uL (0.5-4.7); ABSOLUTE MONOCYTES (AUTO) 0.5 10^3/uL (0.1-1.4); ABSOLUTE NEUT (AUTO) 3.8 10^3/uL (1.7-8.2); BASOPHILS % (AUTO) 1.7 % (0-2); EOSINOPHILS % (AUTO) 5.1 % (0-6); HEMATOCRIT 25.9 % (37.9-51.0); LYMPHOCYTES % (AUTO) 19.4 % (13-45); MEAN CORPUSCULAR HEMOGLOBIN 30.1 pg (27.0-33.4); MEAN CORPUSCULAR HGB CONC 34.6 g/dL (32.0-36.0); MEAN CORPUSCULAR VOLUME 87 fl (80-97); MONOCYTES % (AUTO) 8.2 % (3-13); PLATELET COUNT 350 10^3/uL (150-450); RED BLOOD COUNT 2.98 10^6/uL (4.35-5.55); RED CELL DISTRIBUTION WIDTH 16.1 % (11.5-14.0); SEGMENTED NEUTROPHILS % (AUTO) 65.6 % (42-78); TOTAL CELLS COUNTED % (AUTO) 100 %; WHITE BLOOD COUNT 5.9 10^3/uL (4.0-10.5)
[2019-06-24 06:24] LABS: ANION GAP 8 (5-19); BLOOD UREA NITROGEN 57 mg/dL (7-20); CALCIUM 8.6 mg/dL (8.4-10.2); CARBON DIOXIDE 27 mmol/L (22-30); CHLORIDE 101 mmol/L (98-107); GLUCOSE 115 mg/dL (75-110); POTASSIUM 4.2 mmol/L (3.6-5.0)
[2019-06-24] MEDS: INSULIN REG, HUMAN 100 UNIT/ML 3 ML VIAL (PYX) SUBCUT SCH ×4 (09:45→21:37)
[2019-06-24] MEDS: NIFEDIPINE 30 MG TAB.ER.24 PO SCH ×2 (09:48→21:35)
[2019-06-24] MEDS: CARVEDILOL 12.5 MG TABLET PO SCH ×2 (09:48→21:35)
[2019-06-24] MEDS: DOCUSATE SODIUM 100 MG CAPSULE PO SCH (09:48)
[2019-06-24] MEDS: MAGNESIUM OXIDE 400 MG TABLET PO SCH (09:48)
[2019-06-24] MEDS: ASPIRIN 81 MG TABLET, ENT COATED PO SCH (09:48)
[2019-06-24] MEDS: VALSARTAN 160 MG TABLET PO SCH (09:48)
[2019-06-24] MEDS: FUROSEMIDE INJ/PF 20 MG/2 ML SDV IV SCH ×2 (09:48→21:36)
[2019-06-24] MEDS: ISOSORBIDE MONONITRATE 60 MG TAB.ER.24H PO SCH (09:49)
[2019-06-24] MEDS: PANTOPRAZOLE SODIUM 40 MG PACKET.DR PO SCH ×2 (09:50→17:15)
--- NOTE | 2019-06-24 13:37 | PDOC PROGRESS REPORT ---
Subjective Progress Note for:: 06/24/19 Subjective:: Patient was seen sitting up in his chair eating his breakfast. At the time he claimed that his SOB had improved. He denied any chest pain and claims to have good urine output w/o any issues. Reason For Visit: ACUTE PULMONARY EDEMA WITH CHF,ACUTE RESPIRATORY Physical Exam Vital Signs: Temp Pulse Resp BP Pulse Ox 98.4 F 98 14 124/64 95 06/24/19 07:32 06/24/19 12:32 06/24/19 07:32 06/24/19 12:32 06/24/19 07:32 Intake & Output 06/23/19 06/24/19 06/25/19 06:59 06:59 06:59 Intake Total 1233 720 Output Total 225 1275 Balance 1008 -555 Weight 119.7 kg 118.7 kg General appearance: PRESENT: no acute distress, well-developed, well-nourished Mouth exam: PRESENT: moist, neck supple Respiratory exam: PRESENT: crackles - -bases of the lungs, unlabored. ABSENT: accessory muscle use, clear to auscultation liseth, rhonchi, tachypnea, wheezes Cardiovascular exam: PRESENT: +S1, +S2 GI/Abdominal exam: PRESENT: normal bowel sounds, soft. ABSENT: ascites, organomegaly, tenderness Extremities exam: PRESENT: other. ABSENT: +1 edema, +2 edema - -trace+ edema Musculoskeletal exam: PRESENT: normal inspection. ABSENT: tenderness Neurological exam: PRESENT: alert, awake, oriented to person, oriented to place, oriented to time, oriented to situation Skin exam: PRESENT: dry, intact, warm. ABSENT: cyanosis Results Laboratory Results: 06/24/19 05:43 06/24/19 05:43 06/24/19 06/24/19 05:43 05:43 WBC 5.9 RBC 2.98 L Hgb 9.0 L Hct 25.9 L MCV 87 MCH 30.1 MCHC 34.6 RDW 16.1 H Plt Count 350 Seg Neutrophils % 65.6 Sodium 136.2 L Potassium 4.2 Chloride 101 Carbon Dioxide 27 Anion Gap 8 BUN 57 H Creatinine 4.06 H Est GFR ( Amer) 18 L Glucose 115 H Calcium 8.6 06/16/19 06/16/19 06/16/19 01:35 06:06 06:06 Creatine Kinase 277 H CK-MB (CK-2) 3.43 Troponin I 0.025 0.054 NT-Pro-B Natriuret Pep 3390 H 06/16/19 06/16/19 06/16/19 10:30 10:30 16:14 Creatine Kinase 226 H 215 H CK-MB (CK-2) 2.71 Troponin I 0.071 NT-Pro-B Natriuret Pep 06/16/19 06/22/19 06/22/19 16:14 14:44 14:44 Creatine Kinase 202 H CK-MB (CK-2) 2.80 3.06 Troponin I 0.074 0.017 NT-Pro-B Natriuret Pep 06/22/19 17:55 Creatine Kinase CK-MB (CK-2) Troponin I 0.019 NT-Pro-B Natriuret Pep Impressions: Chest X-Ray 06/22/19 14:13 IMPRESSION: The bibasilar opacities described on the correlative radiograph from 06/16/2019 have decreased - correlate for improved volume status. The costophrenic sulci remain blunted. Assessment & Plan - Diagnosis (1) Acute on chronic combined systolic and diastolic congestive heart failure Is this a current diagnosis for this admission?: Yes Plan: continue off diuretics for now. Appears to be euvolemic at this time. (2) Acute respiratory failure with hypoxia Is this a current diagnosis for this admission?: Yes Plan: Mostly from CHF and possibly some atelectsis, ausing an incentive spirometer to help with atelectasis. With recent iron hemoglobin should start to go up, which will help with his breathing. (3) Chronic kidney disease, stage IV (severe) Is this a current diagnosis for this admission?: Yes Plan: hold on diuretics, allow him to slowly orally rehydrate himself after being diuresed rapidly. No need for IV fluids at this time. Possible new baseline. (4) Iron deficiency anemia Qualifiers: Iron deficiency anemia type: unspecified iron deficiency Qualified Code(s): D50.9 - Iron deficiency anemia, unspecified Is this a current diagnosis for this admission?: Yes Plan: received IV iron yesterday. Will monitor over the next few days. Will most likely need more IV iron in a week with how low his iron sats were. (5) Diabetes mellitus type 2 in obese Is this a current diagnosis for this admission?: Yes
[2019-06-24] MEDS ORDERED: ACETAMINOPHEN 325 MG TABLET PO PRN (14:34)
--- NOTE | 2019-06-24 16:38 | PDOC PROGRESS REPORT ---
Subjective Progress Note for:: 06/24/19 Subjective:: No adverse events overnight. No new complaints. He was in a net negative fluid balance in the last 24 hours. We restarted some lower dose Lasix yesterday. His creatinine is actually improved a little bit from yesterday. Reason For Visit: ACUTE PULMONARY EDEMA WITH CHF,ACUTE RESPIRATORY Physical Exam Vital Signs: Temp Pulse Resp BP Pulse Ox 98.4 F 68 14 126/62 H 95 06/24/19 07:32 06/24/19 15:00 06/24/19 07:32 06/24/19 15:00 06/24/19 07:32 Intake & Output 06/23/19 06/24/19 06/25/19 06:59 06:59 06:59 Intake Total 1233 720 480 Output Total 225 1275 950 Balance 1008 -103 -470 Weight 119.7 kg 118.7 kg General appearance: PRESENT: no acute distress, cooperative, disheveled, obese Respiratory exam: PRESENT: clear to auscultation liseth, symmetrical, unlabored. ABSENT: accessory muscle use, crackles, prolonged expiratory phas, retraction, rhonchi, tachypnea, wheezes Cardiovascular exam: PRESENT: RRR, +S1, +S2 Pulses: PRESENT: normal carotid pulses Vascular exam: PRESENT: normal capillary refill GI/Abdominal exam: PRESENT: normal bowel sounds, soft. ABSENT: distended, gua rding, rebound, tenderness Extremities exam: PRESENT: pedal edema, +2 edema - Upper and lower extremities. ABSENT: clubbing Musculoskeletal exam: PRESENT: normal inspection. ABSENT: deformity Neurological exam: PRESENT: alert, awake, oriented to person, oriented to place, oriented to situation Psychiatric exam: PRESENT: appropriate affect, normal mood Skin exam: PRESENT: dry, warm Results Laboratory Results: 06/24/19 05:43 06/24/19 05:43 06/24/19 06/24/19 05:43 05:43 WBC 5.9 RBC 2.98 L Hgb 9.0 L Hct 25.9 L MCV 87 MCH 30.1 MCHC 34.6 RDW 16.1 H Plt Count 350 Seg Neutrophils % 65.6 Sodium 136.2 L Potassium 4.2 Chloride 101 Carbon Dioxide 27 Anion Gap 8 BUN 57 H Creatinine 4.06 H Est GFR ( Amer) 18 L Glucose 115 H Calcium 8.6 06/16/19 06/16/19 06/16/19 01:35 06:06 06:06 Creatine Kinase 277 H CK-MB (CK-2) 3.43 Troponin I 0.025 0.054 NT-Pro-B Natriuret Pep 3390 H 06/16/19 06/16/19 06/16/19 10:30 10:30 16:14 Creatine Kinase 226 H 215 H CK-MB (CK-2) 2.71 Troponin I 0.071 NT-Pro-B Natriuret Pep 06/16/19 06/22/19 06/22/19 16:14 14:44 14:44 Creatine Kinase 202 H CK-MB (CK-2) 2.80 3.06 Troponin I 0.074 0.017 NT-Pro-B Natriuret Pep 06/22/19 17:55 Creatine Kinase CK-MB (CK-2) Troponin I 0.019 NT-Pro-B Natriuret Pep Impressions: Chest X-Ray 06/22/19 14:13 IMPRESSION: The bibasilar opacities described on the correlative radiograph from 06/16/2019 have decreased - correlate for improved volume status. The costophrenic sulci remain blunted. Assessment and Plan - Diagnosis (1) Acute on chronic combined systolic and diastolic congestive heart failure Is this a current diagnosis for this admission?: Yes Plan: Dobutamine is been discontinued. Lasix and Zaroxolyn were on hold because of his renal function. His creatinine seems to have stabilized, so we started back some lower dose Lasix and thus far his creatinine is tolerating it and he is maintaining a negative fluid balance. (2) Diabetes mellitus type 2 in obese Is this a current diagnosis for this admission?: Yes Plan: Diabetic diet with a sliding scale (3) Hypoxia Is this a current diagnosis for this admission?: Yes Plan: Resolved (4) Acute kidney injury superimposed on chronic kidney disease Is this a current diagnosis for this admission?: Yes Plan: Creatinine is slightly improved from yesterday. Started him back on a small dose of Lasix and will continue to monitor his urine output and creatinine. - Time Time Spent with patient: 15-24 minutes
--- NOTE | 2019-06-24 19:14 | Progress Note ---
Provider Note Provider Note: Cardiology PROGRESS NOTE by Dr. Deonna Iniguez on 06/24/2019. OBJECTIVE: The patient is sitting up in the chair. He denies any chest pain or discomfort. There is no neck pain or shoulder pain. He denies any PND. He continues to have some degree of orthopnea. There is no arrhythmias on dopamine. There is chronic mild leg edema. His urine output is better. There is no TIA CVA symptoms. PHYSICAL EXAMINATION: The patient is mildly obese in no acute distress. Selected Entries 06/24/19 06/24/19 10:00 14:00 Pulse Rate 73 Blood Pressure 124/64 Oxygen Delivery Nasal Cannula Method ( includes room air) Oxygen Flow 2 Rate Respiratory rate: 16/minute HEAD: Is atraumatic normocephalic. EYES: Pupils are equal round regular reactive to light. ENT is negative. NECK: Is supple there is mild JVD present. Carotids are equal there is no bruits. There is no lymphadenopathy. There is no goiter. There is no accessory muscle respiration use. LUNGS: There there is no bibasilar rales on today's exam.No rhonchi.HEART : S1 and S2 is heard. There is no S3 gallop. There is no S4 gallop. There is murmur mitral regurgitation and tricuspid regurgitation present. There is no rub. ABDOMEN: Soft mildly obese. Nontender there is no paraspinal megaly. Bowel sounds are well heard. Extremities femorals are diminished. Leg pulses are diminished there is chronic lymphedema with also trace edema bilaterally. There is chronic venous stasis dermatitis changes. Leg pulses are difficult to palpate. There is no DVT or cellulitis. There is no cyanosis or clubbing. 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 PSYCHIATRIC: Patient judgment insight intact his affect is normal. Patient's 24-hour intake is 720 mL. His output is 1275 mL. Labs- All tests 24 hr 06/23/19 06/24/19 06/24/19 21:02 05:43 05:43 WBC 5.9 RBC 2.98 L Hgb 9.0 L Hct 25.9 L MCV 87 MCH 30.1 MCHC 34.6 RDW 16.1 H Plt Count 350 Lymph % (Auto) 19.4 [place] % (Auto) 8.2 Eos % (Auto) 5.1 Baso % (Auto) 1.7 Absolute Neuts (auto) 3.8 Absolute Lymphs (auto) 1.1 Absolute Monos (auto) 0.5 Absolute Eos (auto) 0.3 Absolute Basos (auto) 0.1 Seg Neutrophils % 65.6 Sodium 136.2 L Potassium 4.2 Chloride 101 Carbon Dioxide 27 Anion Gap 8 BUN 57 H Creatinine 4.06 H Est GFR ( Amer) 18 L Est GFR (MDRD) Non-Af 15 L Glucose 115 H POC Glucose 157 H Calcium 8.6 06/24/19 06/24/19 06/24/19 07:28 11:35 17:11 WBC RBC Hgb Hct MCV MCH MCHC RDW Plt Count Lymph % (Auto) [place] % (Auto) Eos % (Auto) Baso % (Auto) Absolute Neuts (auto) Absolute Lymphs (auto) Absolute Monos (auto) Absolute Eos (auto) Absolute Basos (auto) Seg Neutrophils % Sodium Potassium Chloride Carbon Dioxide Anion Gap BUN Creatinine Est GFR ( Amer) Est GFR (MDRD) Non-Af Glucose POC Glucose 120 H 180 H 125 H Calcium IMPRESSION RECOMMENDATION: 1. Neck and shoulder pain. This is clearly musculoskeletal. No recurrence. The patient's cardiac enzymes are negative. 2.Anemia: Most likely related to chronic renal insufficiency, and also iron deficiency.. The patient did get packed RBC infusion. In spite of this hemoglobin still is low. Patient will benefit from iron transfusion. 3. Acute on chronic biventricular systolic heart failure: Continue diuresis. Continue his anti-cardiomyopathy medication, including Diovan and Coreg 4. Acute on chronic renal failure: Renal function is worsened. This is most likely secondary to overdiuresis. The patient diuretics has been held. Suspect that the patient's decreased urine output and worsening renal function secondary to decrease in cardiac output. Will do the patient on dobutamine at 2.5 mg/kg/min. 5. Dilated cardiomyopathy with moderately reduced LV ejection fraction 6. Moderate to severe pulmonary hypertension: The patient is tolerating Procardia. Will increase as tolerated. 7. Hypertension: Continue antihypertensives 8. Diabetes mellitus: Continue antidiabetic regimen and Accu-Cheks as per protocol Medications reviewed. Medications adjusted. . Medical history making is of high complexity. Medical regimen and management plan discussed with attending provider on the case. 40 minutes spent as patient more than 50% time spent in direct patient care. Will follow.
[2019-06-24] MEDS: DOBUTAMINE HCL/D5W 500 MG/250 ML RTUINJ IV PRN (20:23)
[2019-06-24] MEDS: ATORVASTATIN CALCIUM 40 MG TABLET PO SCH (21:36)
[2019-06-24] MEDS: MELATONIN 3 MG TABLET PO SCH (21:36)
[2019-06-25] MEDS: INSULIN REG, HUMAN 100 UNIT/ML 3 ML VIAL (PYX) SUBCUT SCH ×4 (10:02→21:58)
[2019-06-25] MEDS: ASPIRIN 81 MG TABLET, ENT COATED PO SCH (10:08)
[2019-06-25] MEDS: FUROSEMIDE INJ/PF 20 MG/2 ML SDV IV SCH ×2 (10:08→21:58)
[2019-06-25] MEDS: MAGNESIUM OXIDE 400 MG TABLET PO SCH (10:09)
[2019-06-25] MEDS: NIFEDIPINE 30 MG TAB.ER.24 PO SCH ×2 (10:11→21:57)
[2019-06-25] MEDS: CARVEDILOL 12.5 MG TABLET PO SCH ×2 (10:11→21:58)
[2019-06-25] MEDS: VALSARTAN 160 MG TABLET PO SCH (10:11)
[2019-06-25] MEDS: DOCUSATE SODIUM 100 MG CAPSULE PO SCH (10:12)
[2019-06-25] MEDS: ISOSORBIDE MONONITRATE 60 MG TAB.ER.24H PO SCH (10:13)
[2019-06-25] MEDS: PANTOPRAZOLE SODIUM 40 MG PACKET.DR PO SCH ×2 (10:13→17:43)
[2019-06-25 10:49] LABS: ANION GAP 7 (5-19); BLOOD UREA NITROGEN 53 mg/dL (7-20); CALCIUM 8.9 mg/dL (8.4-10.2); CARBON DIOXIDE 29 mmol/L (22-30); CHLORIDE 100 mmol/L (98-107); GLUCOSE 131 mg/dL (75-110); POTASSIUM 4.6 mmol/L (3.6-5.0)
--- NOTE | 2019-06-25 15:58 | PDOC PROGRESS REPORT ---
Subjective Progress Note for:: 06/25/19 Subjective:: No adverse events overnight. No new complaints. He was in a net negative fluid balance in the last 48 hours. We restarted some lower dose Lasix and he is having a good response. His creatinine is actually improved a little bit over the last couple of days. Reason For Visit: ACUTE PULMONARY EDEMA WITH CHF,ACUTE RESPIRATORY Physical Exam Vital Signs: Temp Pulse Resp BP Pulse Ox 98.2 F 81 19 126/63 H 98 06/25/19 04:00 06/25/19 08:08 06/25/19 04:00 06/25/19 08:08 06/25/19 04:00 Intake & Output 06/24/19 06/25/19 06/26/19 06:59 06:59 06:59 Intake Total 720 1450 Output Total 1275 3150 Balance -555 -1700 Weight 118.7 kg 120 kg General appearance: PRESENT: no acute distress, cooperative, disheveled, obese Respiratory exam: PRESENT: clear to auscultation liseth, symmetrical, unlabored. ABSENT: accessory muscle use, crackles, prolonged expiratory phas, retraction, rhonchi, tachypnea, wheezes Cardiovascular exam: PRESENT: RRR, +S1, +S2 Pulses: PRESENT: normal carotid pulses Vascular exam: PRESENT: normal capillary refill GI/Abdominal exam: PRESENT: normal bowel sounds, soft. ABSENT: distended, guarding, rebound, tenderness Extremities exam: PRESENT: pedal edema, +2 edema - Upper and lower extremities. ABSENT: clubbing Musculoskeletal exam: PRESENT: normal inspection. ABSENT: deformity Neurological exam: PRESENT: alert, awake, oriented to person, oriented to place, oriented to situation Psychiatric exam: PRESENT: appropriate affect, normal mood Skin exam: PRESENT: dry, warm Results Laboratory Results: 06/24/19 05:43 06/25/19 09:49 06/25/19 09:49 Sodium 136.0 L Potassium 4.6 Chloride 100 Carbon Dioxide 29 Anion Gap 7 BUN 53 H Creatinine 3.93 H Est GFR ( Amer) 19 L Glucose 131 H Calcium 8.9 06/16/19 06/16/19 06/16/19 01:35 06:06 06:06 Creatine Kinase 277 H CK-MB (CK-2) 3.43 Troponin I 0.025 0.054 NT-Pro-B Natriuret Pep 3390 H 06/16/19 06/16/19 06/16/19 10:30 10:30 16:14 Creatine Kinase 226 H 215 H CK-MB (CK-2) 2.71 Troponin I 0.071 NT-Pro-B Natriuret Pep 06/16/19 06/22/19 06/22/19 16:14 14:44 14:44 Creatine Kinase 202 H CK-MB (CK-2) 2.80 3.06 Troponin I 0.074 0.017 NT-Pro-B Natriuret Pep 06/22/19 17:55 Creatine Kinase CK-MB (CK-2) Troponin I 0.019 NT-Pro-B Natriuret Pep Impressions: Chest X-Ray 06/22/19 14:13 IMPRESSION: The bibasilar opacities described on the correlative radiograph from 06/16/2019 have decreased - correlate for improved volume status. The costophrenic sulci remain blunted. Assessment and Plan - Diagnosis (1) Acute on chronic combined systolic and diastolic congestive heart failure Is this a current diagnosis for this admission?: Yes Plan: Dobutamine is been resumed. Lasix and Zaroxolyn were on hold because of his renal function. His creatinine seems to have stabilized, so we started back some lower dose Lasix and thus far his creatinine is tolerating it and he is maintaining a negative fluid balance. (2) Diabetes mellitus type 2 in obese Is this a current diagnosis for this admission?: Yes Plan: Diabetic diet with a sliding scale (3) Hypoxia Is this a current diagnosis for this admission?: Yes Plan: Resolved (4) Acute kidney injury superimposed on chronic kidney disease Is this a current diagnosis for this admission?: Yes Plan: He had 1700 mL's out in a negative fluid balance yesterday, and his creatinine continues to trend down. As long as his creatinine will tolerate we will continue to diurese him. - Time Time Spent with patient: 15-24 minutes
--- NOTE | 2019-06-25 17:25 | Progress Note ---
Provider Note Provider Note: [facility] PROGRESS NOTES by Dr. Deonna Iniguez on 06/25/2019. SUBJECTIVE: The patient denies any chest pain or discomfort. There is no shortness of breath. There is no PND orthopnea. There is no increase in leg edema. His intake is good and his output is very good. Hence we will stop the patient's dobutamine. There is no atrial or ventricular arrhythmias seen on the monitor. There is no TIA CVA symptoms. PHYSICAL EXAMINATION: The patient is mildly obese in no acute distress. Selected Entries 06/25/19 06/25/19 06/25/19 06:23 08:00 10:00 Pulse Rate 80 Respiratory Normal Pattern Respiratory Normal Effort Blood Pressure 121/68 Oxygen Delivery Nasal Cannula Room Air Method ( includes room air) Fraction of 28 Inspired Oxygen (FIO2) Oxygen Flow 2 Rate HEAD: Is atraumatic normocephalic. EYES: Pupils are equal round regular reactive to light. ENT is negative. NECK: Is supple there is mild JVD present. Carotids are equal there is no bruits. There is no lymphadenopathy. There is no goiter. There is no accessory muscle respiration use. LUNGS: There there is no bibasilar rales on today's exam.No rhonchi.HEART : S1 and S2 is heard. There is no S3 gallop. There is no S4 gallop. There is murmur mitral regurgitation and tricuspid regurgitation present. There is no rub. ABDOMEN: Soft mildly obese. Nontender there is no paraspinal megaly. Bowel sounds are well heard. Extremities femorals are diminished. Leg pulses are diminished there is chronic lymphedema with also trace edema bilaterally. There is chronic venous stasis dermatitis changes. Leg pulses are difficult to palpate. There is no DVT or cellulitis. There is no cyanosis or clubbing. INCOME TAX INVESTIGATOR: The patient is awake, oriented x3 and with no focal deficits. PSYCHIATRIC: Patient judgment insight intact his affect is normal. Patient's 24-hour intake is 1450 mL. His output is 3160 mL. Labs- All tests 24 hr 06/25/19 06/25/19 06/25/19 07:55 09:49 11:01 Sodium 136.0 L Potassium 4.6 Chloride 100 Carbon Dioxide 29 Anion Gap 7 BUN 53 H Creatinine 3.93 H Est GFR ( Amer) 19 L Est GFR (MDRD) Non-Af 16 L Glucose 131 H POC Glucose 108 141 H Calcium 8.9 06/25/19 06/25/19 16:01 21:07 Sodium Potassium Chloride Carbon Dioxide Anion Gap BUN Creatinine Est GFR ( Amer) Est GFR (MDRD) Non-Af Glucose POC Glucose 170 H 195 H Calcium Chest X-Ray 06/16/19 01:49 IMPRESSION: No significant change. Chest X-Ray 06/22/19 14:13 IMPRESSION: The bibasilar opacities described on the correlative radiograph from 06/16/2019 have decreased - correlate for improved volume status. The costophrenic sulci remain blunted. IMPRESSION RECOMMENDATION: 1. Neck and shoulder pain. This is clearly musculoskeletal. No recurrence. The patient's cardiac enzymes are negative. 2.Anemia: Most likely related to chronic renal insufficiency, and also iron deficiency.. The patient did get packed RBC infusion. In spite of this hemoglobin still is low. Patient will benefit from iron transfusion. 3. Acute on chronic biventricular systolic heart failure: Continue diuresis. Continue his anti-cardiomyopathy medication, including Diovan and Coreg 4. Acute on chronic renal failure: Renal function is worsened. This is most likely secondary to overdiuresis. The patient diuretics has been held. Suspect that the patient's decreased urine output and worsening renal function secondary to decrease in cardiac output. Will stop the patient's dobutamine drip. At present the patient is chronic kidney disease stage IV.. 5. Dilated cardiomyopathy with moderately reduced LV ejection fraction 6. Moderate to severe pulmonary hypertension: The patient is tolerating Procardia. Will increase as tolerated. 7. Hypertension: Continue antihypertensives 8. Diabetes mellitus: Continue antidiabetic regimen and Accu-Cheks as per protocol Medications reviewed. Medications adjusted. . Medical history making is of high complexity. Medical regimen and management plan discussed with attending provider on the case. 40 minutes spent as patient more than 50% time spent in direct patient care. Will follow.
[2019-06-25] MEDS: MELATONIN 3 MG TABLET PO SCH (21:57)
[2019-06-25] MEDS: ATORVASTATIN CALCIUM 40 MG TABLET PO SCH (21:58)
[2019-06-26 06:42] LABS: ANION GAP 9 (5-19); BLOOD UREA NITROGEN 55 mg/dL (7-20); CALCIUM 8.8 mg/dL (8.4-10.2); CARBON DIOXIDE 26 mmol/L (22-30); CHLORIDE 101 mmol/L (98-107); GLUCOSE 97 mg/dL (75-110); POTASSIUM 4.6 mmol/L (3.6-5.0)
[2019-06-26] MEDS: INSULIN REG, HUMAN 100 UNIT/ML 3 ML VIAL (PYX) SUBCUT SCH ×4 (08:33→21:47)
[2019-06-26] MEDS: MAGNESIUM OXIDE 400 MG TABLET PO SCH (09:44)
[2019-06-26] MEDS: VALSARTAN 160 MG TABLET PO SCH (09:44)
[2019-06-26] MEDS: CARVEDILOL 12.5 MG TABLET PO SCH ×2 (09:45→21:47)
[2019-06-26] MEDS: PANTOPRAZOLE SODIUM 40 MG PACKET.DR PO SCH ×2 (09:45→17:59)
[2019-06-26] MEDS: NIFEDIPINE 30 MG TAB.ER.24 PO SCH ×2 (09:45→21:46)
[2019-06-26] MEDS: DOCUSATE SODIUM 100 MG CAPSULE PO SCH (09:45)
[2019-06-26] MEDS: ISOSORBIDE MONONITRATE 60 MG TAB.ER.24H PO SCH (09:45)
[2019-06-26] MEDS: ASPIRIN 81 MG TABLET, ENT COATED PO SCH (09:45)
[2019-06-26] MEDS: FUROSEMIDE INJ/PF 20 MG/2 ML SDV IV SCH ×2 (09:45→21:47)
--- NOTE | 2019-06-26 15:17 | PDOC PROGRESS REPORT ---
Subjective Progress Note for:: 06/26/19 Subjective:: No adverse events overnight. No new complaints. He was in a net negative fluid balance in the last 72 hours. We restarted some lower dose Lasix and he is having a good response. His creatinine is actually improved a little bit over the last couple of days. Even though he was net negative yesterday, his degree of net negative to but he is declining, as he was only -100 as measured yesterday. Reason For Visit: ACUTE PULMONARY EDEMA WITH CHF,ACUTE RESPIRATORY Physical Exam Vital Signs: Temp Pulse Resp BP Pulse Ox 97.8 F 72 18 137/57 H 95 06/26/19 11:17 06/26/19 11:17 06/26/19 11:17 06/26/19 11:17 06/26/19 11:17 Intake & Output 06/25/19 06/26/19 06/27/19 06:59 06:59 06:59 Intake Total 1450 718 250 Output Total 3150 1250 350 Balance -1700 -532 -100 Weight 120 kg 118.8 kg General appearance: PRESENT: no acute distress, cooperative, disheveled, obese Respiratory exam: PRESENT: clear to auscultation liseth, symmetrical, unlabored. ABSENT: accessory muscle use, crackles, prolonged expiratory phas, retraction, rhonchi, tachypnea, wheezes Cardiovascular exam: PRESENT: RRR, +S1, +S2 Pulses: PRESENT: normal carotid pulses Vascular exam: PRESENT: normal capillary refill GI/Abdominal exam: PRESENT: normal bowel sounds, soft. ABSENT: distended, guarding, rebound, tenderness Extremities exam: PRESENT: pedal edema, +2 edema - Upper and lower extremities. ABSENT: clubbing Musculoskeletal exam: PRESENT: normal inspection. ABSENT: deformity Neurological exam: PRESENT: alert, awake, oriented to person, oriented to place, oriented to situation Psychiatric exam: PRESENT: appropriate affect, normal mood Skin exam: PRESENT: dry, warm Results Laboratory Results: 06/24/19 05:43 06/26/19 05:44 06/26/19 05:44 Sodium 135.7 L Potassium 4.6 Chloride 101 Carbon Dioxide 26 Anion Gap 9 BUN 55 H Creatinine 3.91 H Est GFR ( Amer) 19 L Glucose 97 Calcium 8.8 06/16/19 06/16/19 06/16/19 01:35 06:06 06:06 Creatine Kinase 277 H CK-MB (CK-2) 3.43 Troponin I 0.025 0.054 NT-Pro-B Natriuret Pep 3390 H 06/16/19 06/16/19 06/16/19 10:30 10:30 16:14 Creatine Kinase 226 H 215 H CK-MB (CK-2) 2.71 Troponin I 0.071 NT-Pro-B Natriuret Pep 06/16/19 06/22/19 06/22/19 16:14 14:44 14:44 Creatine Kinase 202 H CK-MB (CK-2) 2.80 3.06 Troponin I 0.074 0.017 NT-Pro-B Natriuret Pep 06/22/19 17:55 Creatine Kinase CK-MB (CK-2) Troponin I 0.019 NT-Pro-B Natriuret Pep Impressions: Chest X-Ray 06/22/19 14:13 IMPRESSION: The bibasilar opacities described on the correlative radiograph from 06/16/2019 have decreased - correlate for improved volume status. The costophrenic sulci remain blunted. Assessment and Plan - Diagnosis (1) Acute on chronic combined systolic and diastolic congestive heart failure Is this a current diagnosis for this admission?: Yes Plan: Dobutamine is been resumed. Lasix and Zaroxolyn were on hold because of his renal function. His creatinine seems to have stabilized, so we started back some lower dose Lasix and thus far his creatinine is tolerating it and he is maintaining a negative fluid balance. He may be reaching a point of diminishing returns with the Lasix, however, so were to keep him on what he is on for today and if his urine output has dropped off even more then will probably back off on the Lasix. (2) Diabetes mellitus type 2 in obese Is this a current diagnosis for this admission?: Yes Plan: Diabetic diet with a sliding scale (3) Hypoxia Is this a current diagnosis for this admission?: Yes Plan: Resolved (4) Acute kidney injury superimposed on chronic kidney disease Is this a current diagnosis for this admission?: Yes Plan: His creatinine is stable but his urine output has decreased. As long as his creatinine will tolerate we will continue to diurese him. - Time Time Spent with patient: 15-24 minutes
--- NOTE | 2019-06-26 21:37 | Progress Note ---
Provider Note Provider Note: CARDIOLOGY PROGRESS NOTE by Dr. Deonna Iniguez on 06/26/2019. OBJECTIVE: The patient denies any chest pain or discomfort. Note he has been started on low-dose diuretics and he is having good urine output. He denies any chest pain or discomfort there is no shortness of breath. There is no PND orthopnea. There is no arrhythmia seen on the monitor. PHYSICAL EXAMINATION: The patient is mildly obese. In no acute distress. Selected Entries 06/26/19 07:24 Temperature 97.7 F Temperature Oral Source Pulse Rate 74 Respiratory 18 Rate Blood Pressure 140/70 H Blood Pressure 93 Mean BP Location Left Arm BP Position Supine O2 Sat by Pulse 93 Oximetry Oxygen Flow 2.00 Rate Oxygen Delivery Nasal Cannula Method HEAD: Is atraumatic normocephalic. EYES: Pupils are equal round regular reactive to light. ENT is negative. NECK: Is supple there is mild JVD present. Carotids are equal there is no bruits. There is no lymphadenopathy. There is no goiter. There is no accessory muscle respiration use. LUNGS: There there is no bibasilar rales on today's exam.No rhonchi.HEART : S1 and S2 is heard. There is no S3 gallop. There is no S4 gallop. There is murmur mitral regurgitation and tricuspid regurgitation present. There is no rub. ABDOMEN: Soft mildly obese. Nontender there is no paraspinal megaly. Bowel sounds are well heard. Extremities femorals are diminished. Leg pulses are diminished there is chronic lymphedema with also trace edema bilaterally. There is chronic venous stasis dermatitis changes. Leg pulses are difficult to palpate. There is no DVT or cellulitis. There is no cyanosis or clubbing. SUGAR GRINDER: The patient is awake, oriented x3 and with no focal deficits. PSYCHIATRIC: Patient judgment insight intact his affect is normal. Patient's 24-hour intake is 718 mL. His output is 1250 mL. Labs- All tests 24 hr 06/26/19 06/26/19 06/26/19 05:44 07:46 11:15 Sodium 135.7 L Potassium 4.6 Chloride 101 Carbon Dioxide 26 Anion Gap 9 BUN 55 H Creatinine 3.91 H Est GFR ( Amer) 19 L Est GFR (MDRD) Non-Af 16 L Glucose 97 POC Glucose 94 139 H Calcium 8.8 06/26/19 06/26/19 15:57 21:17 Sodium Potassium Chloride Carbon Dioxide Anion Gap BUN Creatinine Est GFR ( Amer) Est GFR (MDRD) Non-Af Glucose POC Glucose 167 H 144 H Calcium Chest X-Ray 06/16/19 01:49 IMPRESSION: No significant change. Chest X-Ray 06/22/19 14:13 IMPRESSION: The bibasilar opacities described on the correlative radiograph from 06/16/2019 have decreased - correlate for improved volume status. The costophrenic sulci remain blunted. IMPRESSION RECOMMENDATION: 1. Neck and shoulder pain. This is clearly musculoskeletal. No recurrence. The patient's cardiac enzymes are negative. 2.Anemia: Most likely related to chronic renal insufficiency, and also iron deficiency.. The patient did get packed RBC infusion. In spite of this hemoglobin still is low. Patient will benefit from iron transfusion. 3. Acute on chronic biventricular systolic heart failure: Continue diuresis. Continue his anti-cardiomyopathy medication, including Diovan and Coreg 4. Acute on chronic renal failure: Renal function is worsened. This is most likely secondary to overdiuresis. The patient diuretics has been held. Suspect that the patient's decreased urine output and worsening renal function secondary to decrease in cardiac output. Will stop the patient's dobutamine drip. At present the patient is chronic kidney disease stage IV.. 5. Dilated cardiomyopathy with moderately reduced LV ejection fraction 6. Moderate to severe pulmonary hypertension: The patient is tolerating Procardia. Will increase as tolerated. 7. Hypertension: Continue antihypertensives 8. Diabetes mellitus: Continue antidiabetic regimen and Accu-Cheks as per protocol Medications reviewed. Medications adjusted. . Medical history making is of moderate complexity. Medical regimen and management plan discussed with attending provider on the case. 40 minutes spent as patient more than 50% time spent in direct patient care. Will follow.
--- NOTE | 2019-06-26 21:38 | PDOC PROGRESS REPORT ---
Subjective Progress Note for:: 06/26/19 Subjective:: Patient is currently doing well. SOB is greatly improved. He currently is off oxygen. He denies chest pain, SOB, N/V/D/C. He continues to have a negative gradient for Is&Os with creatinine slowly improving. Reason For Visit: ACUTE PULMONARY EDEMA WITH CHF,ACUTE RESPIRATORY Physical Exam Vital Signs: Temp Pulse Resp BP Pulse Ox 97.8 F 72 18 137/57 H 95 06/26/19 11:17 06/26/19 11:17 06/26/19 11:17 06/26/19 11:17 06/26/19 11:17 Intake & Output 06/25/19 06/26/19 06/27/19 06:59 06:59 06:59 Intake Total 1450 718 250 Output Total 3150 1250 350 Balance -1700 -532 -100 Weight 120 kg 118.8 kg General appearance: PRESENT: no acute distress, well-developed, well-nourished Mouth exam: PRESENT: moist, neck supple Respiratory exam: PRESENT: crackles - -bases. ABSENT: clear to auscultation liseth, rales, rhonchi, wheezes Cardiovascular exam: PRESENT: +S1, +S2 GI/Abdominal exam: PRESENT: normal bowel sounds, soft. ABSENT: ascites, organomegaly, tenderness Extremities exam: PRESENT: pedal edema - -trace+. ABSENT: +1 edema, +2 edema, other Neurological exam: PRESENT: alert, awake, oriented to person, oriented to place, oriented to time, oriented to situation Skin exam: PRESENT: dry, intact, warm. ABSENT: cyanosis Results Laboratory Results: 06/24/19 05:43 06/26/19 05:44 06/26/19 05:44 Sodium 135.7 L Potassium 4.6 Chloride 101 Carbon Dioxide 26 Anion Gap 9 BUN 55 H Creatinine 3.91 H Est GFR ( Amer) 19 L Glucose 97 Calcium 8.8 06/16/19 06/16/19 06/16/19 01:35 06:06 06:06 Creatine Kinase 277 H CK-MB (CK-2) 3.43 Troponin I 0.025 0.054 NT-Pro-B Natriuret Pep 3390 H 06/16/19 06/16/19 06/16/19 10:30 10:30 16:14 Creatine Kinase 226 H 215 H CK-MB (CK-2) 2.71 Troponin I 0.071 NT-Pro-B Natriuret Pep 06/16/19 06/22/19 06/22/19 16:14 14:44 14:44 Creatine Kinase 202 H CK-MB (CK-2) 2.80 3.06 Troponin I 0.074 0.017 NT-Pro-B Natriuret Pep 06/22/19 17:55 Creatine Kinase CK-MB (CK-2) Troponin I 0.019 NT-Pro-B Natriuret Pep Impressions: Chest X-Ray 06/22/19 14:13 IMPRESSION: The bibasilar opacities described on the correlative radiograph from 06/16/2019 have decreased - correlate for improved volume status. The costophrenic sulci remain blunted. Assessment & Plan - Diagnosis (1) Acute on chronic combined systolic and diastolic congestive heart failure Is this a current diagnosis for this admission?: Yes Plan: improving on furosemide 20mg bid. Will need to monitor creatinine to make sure it does not worsen. (2) Acute respiratory failure with hypoxia Is this a current diagnosis for this admission?: Yes Plan: Mostly from CHF and possibly some atelectsis, ausing an incentive spirometer to help with atelectasis. With recent iron hemoglobin should start to go up, which will help with his breathing. (3) Chronic kidney disease, stage IV (severe) Is this a current diagnosis for this admission?: Yes Plan: slowly trending back to baseline between 3 to 3.5 (4) Iron deficiency anemia Qualifiers: Iron deficiency anemia type: unspecified iron deficiency Qualified Code(s): D50.9 - Iron deficiency anemia, unspecified Is this a current diagnosis for this admission?: Yes Plan: Will monitor over the next few days. Will most likely need more IV iron in a week with how low his iron sats were. (5) Diabetes mellitus type 2 in obese Is this a current diagnosis for this admission?: Yes
[2019-06-26] MEDS: MELATONIN 3 MG TABLET PO SCH (21:46)
[2019-06-26] MEDS: ATORVASTATIN CALCIUM 40 MG TABLET PO SCH (21:46)
[2019-06-27 06:11] LABS: ANION GAP 9 (5-19); BLOOD UREA NITROGEN 54 mg/dL (7-20); CARBON DIOXIDE 26 mmol/L (22-30); CHLORIDE 99 mmol/L (98-107); GLUCOSE 113 mg/dL (75-110); POTASSIUM 4.6 mmol/L (3.6-5.0)
[2019-06-27] MEDS: INSULIN REG, HUMAN 100 UNIT/ML 3 ML VIAL (PYX) SUBCUT SCH (08:29)
[2019-06-27 09:33] VITALS: BP 127/68
[2019-06-27] MEDS: NIFEDIPINE 30 MG TAB.ER.24 PO SCH (09:33)
[2019-06-27] MEDS: DOCUSATE SODIUM 100 MG CAPSULE PO SCH (09:33)
[2019-06-27] MEDS: CARVEDILOL 12.5 MG TABLET PO SCH (09:34)
[2019-06-27] MEDS: ASPIRIN 81 MG TABLET, ENT COATED PO SCH (09:34)
[2019-06-27] MEDS: FUROSEMIDE INJ/PF 20 MG/2 ML SDV IV SCH (09:34)
[2019-06-27] MEDS: MAGNESIUM OXIDE 400 MG TABLET PO SCH (09:34)
[2019-06-27] MEDS: VALSARTAN 160 MG TABLET PO SCH (09:34)
[2019-06-27] MEDS: ISOSORBIDE MONONITRATE 60 MG TAB.ER.24H PO SCH (09:36)
[2019-06-27] MEDS: PANTOPRAZOLE SODIUM 40 MG PACKET.DR PO SCH (09:36)
--- NOTE | 2019-06-27 12:15 | PDOC DISCHARGE SUMMARY ---
Impression - Admit/DC Date/PCP Admission Date/Primary Care Provider: 06/16/19 03:27 JADIEL SHARPE MD Discharge Date: 06/27/19 - Discharge Diagnosis (1) Acute on chronic combined systolic and diastolic congestive heart failure Is this a current diagnosis for this admission?: Yes (2) Diabetes mellitus type 2 in obese Is this a current diagnosis for this admission?: Yes (3) Hypoxia Is this a current diagnosis for this admission?: Yes (4) Acute kidney injury superimposed on chronic kidney disease Is this a current diagnosis for this admission?: Yes - Additional Information Resuscitation Status: Full Code Discharge Diet: Cardiac, Diabetic, Other (Comments) Discharge Activity: Activity As Tolerated, Balance Activity w/Rest, Weigh Daily Referrals: JADIEL SHARPE MD [Primary Care Provider] - 06/24/19 1:15 pm (Put follow up request in weekend book.myh sticker in book-DJL) PEGGY TORRES MD [ACTIVE STAFF] - (1-2 weeks sticker in book--DJL) MAKENNA MARKHAM MD [ACTIVE STAFF] - (1 week sticker in book--DJL) Prescriptions: Carvedilol [Coreg 12.5 mg Tablet] 12.5 mg PO Q12 #60 tablet Valsartan [Diovan 160 mg Tablet] 160 mg PO DAILY #30 tablet Isosorbide Mononitrate [Imdur 60 mg Tablet.er] 60 mg PO DAILY #30 tab.er.24h Furosemide [Lasix 20 mg Tablet] 20 mg PO BID #60 tablet Nifedipine [Nifedipine ER] 90 mg PO BID #60 tablet.er Metolazone [Zaroxolyn 5 mg Tablet] 5 mg PO DAILY #30 tablet Home Medications: Aspirin [Ecotrin 81 mg EC Tablet] 81 mg PO DAILY 12/12/18 Atorvastatin Calcium [Lipitor 40 mg Tablet] 40 mg PO QHS 12/12/18 Ergocalciferol (Vitamin D2) [Drisdol 50,000 unit (1.25MG) Capsule] 50,000 unit PO MO 06/04/19 Melatonin [Melatonin 3 mg Tablet] 6 mg PO QHS #60 tablet 06/08/19 Albuterol Sulfate [Proair HFA Inhalation Aerosol 8.5 gm MDI] 1 puff IH Q4HP PRN 06/16/19 Glipizide [Glipizide Xl] 10 mg PO DAILY 06/16/19 Carvedilol [Coreg 12.5 mg Tablet] 12.5 mg PO Q12 #60 tablet 06/27/19 Furosemide [Lasix 20 mg Tablet] 20 mg PO BID #60 tablet 06/27/19 Isosorbide Mononitrate [Imdur 60 mg Tablet.er] 60 mg PO DAILY #30 tab.er.24h 06/27/19 Metolazone [Zaroxolyn 5 mg Tablet] 5 mg PO DAILY #30 tablet 06/27/19 Nifedipine [Nifedipine ER] 90 mg PO BID #60 tablet.er 06/27/19 Valsartan [Diovan 160 mg Tablet] 160 mg PO DAILY #30 tablet 06/27/19 History of Present Illiness History of Present Illness: JARED HORVATH JR is a 58 year old malee who presented to the emergency room with acute dyspnea. He admits suddenly developing severe dyspnea while at home on the evening of 06/15/2019. His dyspnea was accompanied by orthopnea. He denies any other associated or accompanying signs and symptoms. His dyspnea was markedly worsened by any exertion or activity. He admits prior similar episodes related to his congestive heart failure. He has not identified any additional aggravating or ameliorating factors for his acute dyspnea. In the emergency room he was found to be in acute pulmonary edema and was treated with BiPAP, intravenous morphine sulfate, intravenous diuretics and sublingual nitroglycerin. He responded well to treatment and was subsequently admitted to the [facility] for further evaluation and ongoing care. Hospital Course Hospital Course: He has been admitted to the hospital 4 times since late November, 3 of those times coming in the last 2 months, and was most recently discharged a week before he was admitted for this hospitalization. All of these have been for heart failure. He required aggressive diuresis once again, and as a result he wound up having a worsening of his already advanced chronic kidney disease. He was put on a dobutamine drip and then was taken off and then had it restarted. He was on large doses of Lasix at home, but was not being compliant with his diet or fluid restrictions at home. He has been provided with extensive education this time, including information for him to take home with him. His Lasix was on hold for a couple of days for the affirmation worsening of his advanced chronic kidney disease, and he remained short of breath while he was on oxygen. We started him back on some low-dose Lasix and we have had him in a net negative fluid balance for the last several days. He is on room air now and is able to ambulate independently with a good tolerance for activity. We have done this by restricting his intake of fluids and having him on low-dose Lasix, which his kidneys actually tolerated quite well. Based on his recent history, it may not be very long before he is back in the hospital with the same problem. He has been medically optimized and has close follow-up with his mental health therapist Dr. Markham. We have also arranged for him to have follow-up with nephrology in 1 to 2 weeks. His labs and examination were reassuring and he was discharged today in stable condition. Physical Exam Vital Signs: Temp Pulse Resp BP Pulse Ox 98.2 F 77 16 127/68 H 94 06/27/19 10:40 06/27/19 10:40 06/27/19 10:40 06/27/19 10:40 06/27/19 10:40 Intake & Output 06/26/19 06/27/19 06/28/19 06:59 06:59 06:59 Intake Total 718 1380 Output Total 1250 1925 Balance -532 -545 Weight 118.8 kg 117.6 kg General appearance: PRESENT: no acute distress, cooperative, disheveled, obese Respiratory exam: PRESENT: clear to auscultation liseth, symmetrical, unlabored. ABSENT: accessory muscle use, crackles, prolonged expiratory phas, retraction, rhonchi, tachypnea, wheezes Cardiovascular exam: PRESENT: RRR, +S1, +S2 Pulses: PRESENT: normal carotid pulses Vascular exam: PRESENT: normal capillary refill GI/Abdominal exam: PRESENT: normal bowel sounds, soft. ABSENT: distended, guarding, rebound, tenderness Extremities exam: PRESENT: pedal edema, +2 edema - Upper and lower extremities. ABSENT: clubbing Musculoskeletal exam: PRESENT: normal inspection. ABSENT: deformity Neurological exam: PRESENT: alert, awake, oriented to person, oriented to place, oriented to situation Psychiatric exam: PRESENT: appropriate affect, normal mood Skin exam: PRESENT: dry, warm Results Laboratory Results: WBC 5.9 10^3/uL (4.0-10.5) 06/24/19 05:43 RBC 2.98 10^6/uL (4.35-5.55) L 06/24/19 05:43 Hgb 9.0 g/dL (13.5-17.0) L 06/24/19 05:43 Hct 25.9 % (37.9-51.0) L 06/24/19 05:43 MCV 87 fl (80-97) 06/24/19 05:43 MCH 30.1 pg (27.0-33.4) 06/24/19 05:43 MCHC 34.6 g/dL (32.0-36.0) 06/24/19 05:43 RDW 16.1 % (11.5-14.0) H 06/24/19 05:43 Plt Count 350 10^3/uL (150-450) 06/24/19 05:43 Lymph % (Auto) 19.4 % (13-45) 06/24/19 05:43 Coles % (Auto) 8.2 % (3-13) 06/24/19 05:43 Eos % (Auto) 5.1 % (0-6) 06/24/19 05:43 Baso % (Auto) 1.7 % (0-2) 06/24/19 05:43 Reticulocyte # 0.050 10^6/uL (0.028-0.122) 06/18/19 05:06 Absolute Neuts (auto) 3.8 10^3/uL (1.7-8.2) 06/24/19 05:43 Absolute Lymphs (auto) 1.1 10^3/uL (0.5-4.7) 06/24/19 05:43 Absolute Monos (auto) 0.5 10^3/uL (0.1-1.4) 06/24/19 05:43 Absolute Eos (auto) 0.3 10^3/uL (0.0-0.6) 06/24/19 05:43 Absolute Basos (auto) 0.1 10^3/uL (0.0-0.2) 06/24/19 05:43 Seg Neutrophils % 65.6 % (42-78) 06/24/19 05:43 Retic Count (auto) 1.98 % (0.66-2.85) 06/18/19 05:06 PT 15.1 SEC (11.4-15.4) 06/18/19 07:47 INR 1.18 06/18/19 07:47 VBG pH 7.41 (7.30-7.42) 06/16/19 01:35 VBG pCO2 44.4 mmHg (35-63) 06/16/19 01:35 VBG HCO3 27.5 mmol/L (20-32) 06/16/19 01:35 VBG Base Excess 2.5 mmol/L 06/16/19 01:35 Sodium 134.4 mmol/L (137-145) L 06/27/19 05:27 Potassium 4.6 mmol/L (3.6-5.0) 06/27/19 05:27 Chloride 99 mmol/L (98-107) 06/27/19 05:27 Carbon Dioxide 26 mmol/L (22-30) 06/27/19 05:27 Anion Gap 9 (5-19) 06/27/19 05:27 BUN 54 mg/dL (7-20) H 06/27/19 05:27 Creatinine 3.79 mg/dL (0.52-1.25) H 06/27/19 05:27 Est GFR ( Amer) 20 (>60) L 06/27/19 05:27 Est GFR (MDRD) Non-Af 16 (>60) L 06/27/19 05:27 Glucose 113 mg/dL (75-110) H 06/27/19 05:27 POC Glucose 111 mg/dL (70-110) H 06/27/19 07:55 Calcium 9.0 mg/dL (8.4-10.2) 06/27/19 05:27 Phosphorus 5.7 mg/dL (2.5-4.5) H 06/22/19 14:44 Magnesium 2.2 mg/dL (1.6-2.3) 06/23/19 04:53 Iron 14.1 ug/dL (49-181) L 06/18/19 05:06 TIBC 204 ug/dL (250-450) L 06/18/19 05:06 % Saturation 7 % 06/18/19 05:06 Ferritin 250.00 ng/mL (17.9-464.0) 06/18/19 05:06 Total Bilirubin 0.7 mg/dL (0.2-1.3) 06/22/19 14:44 Direct Bilirubin 0.0 mg/dL (0.0-0.4) 06/22/19 14:44 Neonat Total Bilirubin Not Reportable 06/22/19 14:44 Neonat Direct Bilirubin Not Reportable 06/22/19 14:44 Neonat Indirect Bili Not Reportable 06/22/19 14:44 AST 18 U/L (17-59) 06/22/19 14:44 ALT 14 U/L (<50) 06/22/19 14:44 Alkaline Phosphatase 74 U/L (38-126) 06/22/19 14:44 Creatine Kinase 202 U/L (55-170) H 06/22/19 14:44 CK-MB (CK-2) 3.06 ng/mL (<4.55) 06/22/19 14:44 Troponin I 0.019 ng/mL 06/22/19 17:55 NT-Pro-B Natriuret Pep 3390 pg/mL (<125) H 06/16/19 01:35 Total Protein 6.7 g/dL (6.3-8.2) 06/22/19 14:44 Albumin 3.0 g/dL (3.5-5.0) L 06/22/19 14:44 Vitamin B12 569.0 pg/mL (239-931) 06/18/19 05:06 Folate 7.17 ng/mL (>2.76) 06/18/19 05:06 Stool Occult Blood NEGATIVE (NEGATIVE) 06/18/19 09:05 Blood Type O POSITIVE 06/18/19 07:47 Blood Type Confirm O POSITIVE 06/18/19 07:47 Antibody Screen NEGATIVE 06/18/19 07:47 Crossmatch See Detail 06/18/19 07:47 06/16/19 06/16/19 06/16/19 01:35 06:06 10:30 CK-MB (CK-2) 3.43 2.71 Troponin I 0.025 0.054 0.071 NT-Pro-B Natriuret Pep 3390 H 06/16/19 06/22/19 06/22/19 16:14 14:44 17:55 CK-MB (CK-2) 2.80 3.06 Troponin I 0.074 0.017 0.019 NT-Pro-B Natriuret Pep Impressions: Chest X-Ray 06/16/19 01:49 IMPRESSION: No significant change. Chest X-Ray 06/22/19 14:13 IMPRESSION: The bibasilar opacities described on the correlative radiograph from 06/16/2019 have decreased - correlate for improved volume status. The costophrenic sulci remain blunted. Plan Time Spent: Greater than 30 Minutes Stroke Is this a Stroke Patient?: No Acute Heart Failure - Is this a Heart Failure Patient?: Yes Documentation of LVEF assessment?: Yes LVEF < 40%?: No- if no continue to question #3 3. Anticoagulant therapy for permanect/persistent/paraoxysmal Afib or Aflutter: N/A Follow-up Appointment scheduled within 7 days?: Yes
== END 2019-06-27 12:29 | disposition home or self-care (01) | DRG 291 ==
LOC: ER 01:37 → EH 03:27 → 3S 05:00
PROVIDERS: ADMIT Emergency Medicine; ATTEND Family Medicine
PROC: 5A09457 Assistance with Respiratory Ventilation, 24-96 Consecutive Hours, Continuous Positive Airway Pressure (ICD-10-PCS; 2019-06-16)
PROC: 30233N1 Transfusion of Nonautologous Red Blood Cells into Peripheral Vein, Percutaneous Approach (ICD-10-PCS; principal; 2019-06-18)
DX: I13.0 Hypertensive heart and chronic kidney disease with heart failure and stage 1 through stage 4 chronic kidney disease, or unspecified chronic kidney disease (principal); J96.01 Acute respiratory failure with hypoxia; I50.43 Acute on chronic combined systolic (congestive) and diastolic (congestive) heart failure; N17.9 Acute kidney failure, unspecified; E87.1 Hypo-osmolality and hyponatremia; N18.3 Chronic kidney disease, stage 3 (moderate); E11.22 Type 2 diabetes mellitus with diabetic chronic kidney disease; I42.0 Dilated cardiomyopathy; I27.20 Pulmonary hypertension, unspecified; F10.20 Alcohol dependence, uncomplicated; E78.5 Hyperlipidemia, unspecified; E11.51 Type 2 diabetes mellitus with diabetic peripheral angiopathy without gangrene; K21.9 Gastro-esophageal reflux disease without esophagitis; M19.90 Unspecified osteoarthritis, unspecified site; D63.1 Anemia in chronic kidney disease; D50.9 Iron deficiency anemia, unspecified; I08.1 Rheumatic disorders of both mitral and tricuspid valves; Z79.82 Long term (current) use of aspirin; Z79.51 Long term (current) use of inhaled steroids; Z79.899 Other long term (current) drug therapy; Z79.84 Long term (current) use of oral hypoglycemic drugs; E66.9 Obesity, unspecified; Z68.31 Body mass index [BMI] 31.0-31.9, adult; Z89.422 Acquired absence of other left toe(s); Z82.49 Family history of ischemic heart disease and other diseases of the circulatory system; T50.1X5A Adverse effect of loop [high-ceiling] diuretics, initial encounter; Z91.11 Patient's noncompliance with dietary regimen
CPT/HCPCS: 36415; 36430; 71045; 80048; 80053; 82272; 82550; 82553; 82607; 82728; 82746; 82803; 82962; 83540; 83550; 83735; 83880; 84100; 84484; 85025; 85027; 85045; 85610; 86850; 86900; 86901; 86920; 87040; 87070; 93005; 93010; 94660; 94799; 99291; C9113; J1250; J1439; J1644; J1756; J1815; J1940; J2270; J2405; J2550; J3490; J7030; J7050; P9016

== ENCOUNTER → 2019-07-06 | Outpatient (CLI) | payer MEDICARE, MEDICAID ==
[2019-07-06 15:34] LABS: ABSOLUTE BASOPHILS # (AUTO) 0.1 10^3/uL (0.0-0.2); ABSOLUTE EOSINOPHILS # (AUTO) 0.3 10^3/uL (0.0-0.6); ABSOLUTE LYMPHOCYTES (AUTO) 1.3 10^3/uL (0.5-4.7); ABSOLUTE MONOCYTES (AUTO) 0.5 10^3/uL (0.1-1.4); ABSOLUTE NEUT (AUTO) 4.3 10^3/uL (1.7-8.2); BASOPHILS % (AUTO) 1.2 % (0-2); EOSINOPHILS % (AUTO) 4.1 % (0-6); HEMATOCRIT 28.9 % (37.9-51.0); HEMOGLOBIN 9.9 g/dL (13.5-17.0); LYMPHOCYTES % (AUTO) 19.8 % (13-45); MEAN CORPUSCULAR HEMOGLOBIN 30.3 pg (27.0-33.4); MEAN CORPUSCULAR HGB CONC 34.4 g/dL (32.0-36.0); MEAN CORPUSCULAR VOLUME 88 fl (80-97); MONOCYTES % (AUTO) 7.9 % (3-13); PLATELET COUNT 377 10^3/uL (150-450); RED BLOOD COUNT 3.27 10^6/uL (4.35-5.55); RED CELL DISTRIBUTION WIDTH 16.6 % (11.5-14.0); TOTAL CELLS COUNTED % (AUTO) 100 %; WHITE BLOOD COUNT 6.5 10^3/uL (4.0-10.5)
[2019-07-06 15:54] LABS: ANION GAP 11 (5-19); BLOOD UREA NITROGEN 64 mg/dL (7-20); CALCIUM 8.6 mg/dL (8.4-10.2); CARBON DIOXIDE 26 mmol/L (22-30); CHLORIDE 101 mmol/L (98-107); GLUCOSE 113 mg/dL (75-110); POTASSIUM 4.2 mmol/L (3.6-5.0)
== END ==
LOC: OD 14:37
PROVIDERS: ATTEND Family Medicine Geriatric Medicine
DX: I12.9 Hypertensive chronic kidney disease with stage 1 through stage 4 chronic kidney disease, or unspecified chronic kidney disease (principal); N18.3 Chronic kidney disease, stage 3 (moderate); Z79.899 Other long term (current) drug therapy
CPT/HCPCS: 36415; 80048; 85025

== ENCOUNTER 2019-07-25 09:36 | Emergency (ER) | payer MEDICARE, MEDICAID ==
--- NOTE | 2019-07-25 09:53 | ER Document Report ---
ED Medical Screen (RME) - General Chief Complaint: Wound Recheck Stated Complaint: LEFT FOOT PAIN Time Seen by Provider: 07/25/19 09:49 Primary Care Provider: JADIEL SHARPE MD [Primary Care Provider] - Follow up as needed Mode of Arrival: Wheelchair Information source: Patient Notes: 58-year-old male presented to ED for increasing pain and bleeding about drainage to the left foot. He does have a diabetic ulcer. He was seen by his waste collection driver on Saturday and had treatment at that time. He states last night he did want to take the dressing off and it was bleeding more than normal so he did not take it off and came to see the doctor. [facility] sent him to the emergency room due to the condition of the wound. Patient is alert oriented respirations regular and unlabored speaking in full sentences. I have greeted and performed a rapid initial assessment of this patient. A comprehensive ED assessment and evaluation of the patient, analysis of test results and completion of medical decision making process will be conducted by an additional ED providers. TRAVEL OUTSIDE OF THE [place] IN LAST 30 DAYS: No - Related Data Allergies/Adverse Reactions: No Known Allergies Allergy (Verified 06/10/18 17:31) Past Medical History - Social History Chew tobacco use (# tins/day): No Frequency of alcohol use: None Drug Abuse: None - Past Medical History Cardiac Medical History: Reports: Hx Congestive Heart Failure - Chronic combined systolic and diastolic congestive heart failure, Hx Hypercholesterolemia, Hx Hypertension, Hx Peripheral Vascular Disease Denies: Hx Atrial Fibrillation, Hx Coronary Artery Disease, Hx DVT, Hx Heart Attack, Hx Pulmonary Embolism Pulmonary Medical History: Reports: Hx Pneumonia, Hx Respiratory Failure Denies: Hx Asthma, Hx Bronchitis, Hx COPD, Hx Tuberculosis Neurological Medical History: Denies: Hx Seizures, Hx Parkinson's Disease Endocrine Medical History: Reports: Hx Diabetes Mellitus Type 2. Denies: Hx Diabetes Mellitus Type 1, Hx Hyperthyroidism, Hx Hypothyroidism Renal/ Medical History: Denies: Hx Benign Prostatic Hyperplasia, Hx End Stage Renal Disease, Hx Kidney Stones, Hx Peritoneal Dialysis GI Medical History: Reports: Hx Gastroesophageal Reflux Disease. Denies: Hx Cirrhosis, Hx Crohn's Disease, Hx Hepatitis, Hx Ulcer, Hx Ulcerative Colitis Musculoskeltal Medical History: Reports Hx Arthritis, Denies Hx Gout, Denies Hx Multiple Sclerosis, Reports Hx Musculoskeletal Deformity, Reports Hx Musculoskeletal Trauma Skin Medical History: Denies Hx Eczema, Denies Hx Psoriasis Psychiatric Medical History: Denies: Hx Bipolar Disorder, Hx Depression, Hx Schizophrenia Traumatic Medical History: Reports: Hx Fractures Infectious Medical History: Denies: Hx Hepatitis Past Surgical History: Reports: Hx Abdominal Surgery, Hx Orthopedic Surgery - 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 fourth and fifth toes in 2015 - Immunizations Hx Diphtheria, Pertussis, Tetanus Vaccination: Yes Physical Exam - Vital signs Vitals: Temp Pulse Resp BP Pulse Ox 97.9 F 75 18 178/81 H 99 07/25/19 09:40 07/25/19 09:40 07/25/19 09:40 07/25/19 09:40 07/25/19 09:40 Course - Vital Signs Vital signs: Temp Pulse Resp BP Pulse Ox 97.9 F 75 18 178/81 H 99 07/25/19 09:42 07/25/19 09:40 07/25/19 09:40 07/25/19 09:40 07/25/19 09:40 Doctor's Discharge - Discharge Referrals: JADIEL SHARPE MD [Primary Care Provider] - Follow up as needed
[2019-07-25 10:33] LABS: APPEARANCE,URINE CLEAR; BILIRUBIN,URINE NEGATIVE (NEGATIVE); COLOR,URINE YELLOW; GLUCOSE, URINE 50 mg/dL (NEGATIVE); KETONES,URINE NEGATIVE (NEGATIVE); LEUKOCYTE ESTERASE,URINE NEGATIVE (NEGATIVE); NITRITE,URINE NEGATIVE (NEGATIVE); PROTEIN,URINE >=500 mg/dL (NEGATIVE); URINE SPECIFIC GRAVITY 1.009; UROBILINOGEN,URINE NEGATIVE mg/dL (<2.0)
--- NOTE | 2019-07-25 10:33 | RADIOLOGY REPORT (SQ) ---
EXAM DESCRIPTION: FOOT LEFT COMPLETE IMAGES COMPLETED DATE/TIME: 07/25/2019 10:19 am REASON FOR STUDY: Diabetic ulcer COMPARISON: None. NUMBER OF VIEWS: Three views. TECHNIQUE: AP, lateral and oblique radiographic images acquired of the left foot. LIMITATIONS: None. FINDINGS: Overall normal bone density. Soft tissue ulcer lateral left mid foot near the base of the 5th metatarsal with radiopaque ointment. No underlying aggressive bony demineralization worrisome for osteomyelitis Old transmetatarsal amputation 3rd 4th and 5th toe was. Old healed joint infection 2nd MTP joint with chronic periosteal new bone growth along the 2nd metata rsal shaft. Old subtalar fusion. 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 IMPRESSION: Soft tissue ulcer lateral left mid foot near the base of the 5th metatarsal without aggr essive underlying bony erosion TECHNICAL DOCUMENTATION: JOB ID: [id number] 2010 [employer]- All Rights Reserved Reading location - IP/workstation name: [email or web address]
[2019-07-25 10:56] LABS: ABSOLUTE BASOPHILS # (AUTO) 0.1 10^3/uL (0.0-0.2); ABSOLUTE EOSINOPHILS # (AUTO) 0.2 10^3/uL (0.0-0.6); ABSOLUTE LYMPHOCYTES (AUTO) 1.1 10^3/uL (0.5-4.7); ABSOLUTE MONOCYTES (AUTO) 0.5 10^3/uL (0.1-1.4); ABSOLUTE NEUT (AUTO) 4.5 10^3/uL (1.7-8.2); EOSINOPHILS % (AUTO) 3.2 % (0-6); HEMATOCRIT 27.9 % (37.9-51.0); HEMOGLOBIN 9.4 g/dL (13.5-17.0); LYMPHOCYTES % (AUTO) 16.6 % (13-45); MEAN CORPUSCULAR HEMOGLOBIN 29.4 pg (27.0-33.4); MEAN CORPUSCULAR HGB CONC 33.8 g/dL (32.0-36.0); MEAN CORPUSCULAR VOLUME 87 fl (80-97); MONOCYTES % (AUTO) 8.3 % (3-13); PLATELET COUNT 413 10^3/uL (150-450); RED BLOOD COUNT 3.21 10^6/uL (4.35-5.55); RED CELL DISTRIBUTION WIDTH 15.7 % (11.5-14.0); SEGMENTED NEUTROPHILS % (AUTO) 70.9 % (42-78); TOTAL CELLS COUNTED % (AUTO) 100 %; WHITE BLOOD COUNT 6.4 10^3/uL (4.0-10.5)
--- NOTE | 2019-07-25 11:01 | ER Document Report ---
ED Extremity Problem, Lower - General Chief Complaint: Wound Recheck Stated Complaint: LEFT FOOT PAIN Time Seen by Provider: 07/25/19 09:49 Primary Care Provider: JADIEL SHARPE MD [Primary Care Provider] - Follow up as needed Mode of Arrival: Wheelchair Notes: HPI: 58-year-old male with a diabetic left foot ulcer that he has had for few months. He had "a cleaning of it" 2 weeks ago by the local fish and game warden Dr. Grajeda. Dr. Grajeda also saw the patient on Saturday. Patient states he had some bleeding from the bandage so he wanted to get it checked. He denies any fevers, vomiting, increased swelling or redness. Patient does have sensation to the bottom of his foot. He states he has some chronic left lower extremity edema that has not increased in size. No chest pain or shortness of breath. ROS: See HPI All other review of systems reviewed and otherwise negative Reviewed vital signs and nursing note as charted by RN. PHYSICAL EXAM: CONSTITUTIONAL: Alert and oriented and responds appropriately to questions. Well-appearing; well-nourished HEAD: Normocephalic; atraumatic CARD: Regular rate and rhythm; no murmurs; symmetric distal pulses RESP: Normal chest excursion without splinting or tachypnea; breath sounds clear and equal bilaterally ABD/GI: Normal bowel sounds; non-distended; soft, non-tender EXT: Patient has some robert chronic appearing edema to left lower extremity. Ulcer to the base of the foot with no obvious bleeding, fluctuance, drainage, induration, or surrounding erythema SKIN: See above NEURO: CN 2-12 intact; 5/5 bilateral upper and lower extremity strength with sensation intact to light touch PSYCH: The patient's mood and manner are appropriate. Grooming and personal hygiene are appropriate. TRAVEL OUTSIDE OF THE [place] IN LAST 30 DAYS: No - Related Data Allergies/Adverse Reactions: No Known Allergies Allergy (Verified 06/10/18 17:31) Past Medical History - General Information source: Patient - Social History Smoking Status: Never Smoker Chew tobacco use (# tins/day): No Frequency of alcohol use: None Drug Abuse: None Family History: CAD, Hypertension, Malignancy. denies: DM Patient has homicidal ideation: No - Past Medical History Cardiac Medical History: Reports: Hx Congestive Heart Failure - Chronic combined systolic and diastolic congestive heart failure, Hx Hypercholesterolemia, Hx Hypertension, Hx Peripheral Vascular Disease Denies: Hx Atrial Fibrillation, Hx Coronary Artery Disease, Hx DVT, Hx Heart Attack, Hx Pulmonary Embolism Pulmonary Medical History: Reports: Hx Pneumonia, Hx Respiratory Failure Denies: Hx Asthma, Hx Bronchitis, Hx COPD, Hx Tuberculosis Neurological Medical History: Denies: Hx Seizures, Hx Parkinson's Disease Endocrine Medical History: Reports: Hx Diabetes Mellitus Type 2. Denies: Hx Diabetes Mellitus Type 1, Hx Hyperthyroidism, Hx Hypothyroidism Renal/ Medical History: Denies: Hx Benign Prostatic Hyperplasia, Hx End Stage Renal Disease, Hx Kidney Stones, Hx Peritoneal Dialysis GI Medical History: Reports: Hx Gastroesophageal Reflux Disease. Denies: Hx Cirrhosis, Hx Crohn's Disease, Hx Hepatitis, Hx Ulcer, Hx Ulcerative Colitis Musculoskeletal Medical History: Reports Hx Arthritis, Denies Hx Gout, Denies Hx Multiple Sclerosis, Reports Hx Musculoskeletal Deformity, Reports Hx Muscul oskeletal Trauma Skin Medical History: Denies Hx Eczema, Denies Hx Psoriasis Psychiatric Medical History: Denies: Hx Bipolar Disorder, Hx Depression, Hx Schizophrenia Traumatic Medical History: Reports: Hx Fractures Infectious Medical History: Denies: Hx Hepatitis Past Surgical History: Reports: Hx Abdominal Surgery, Hx Orthopedic Surgery - 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 fourth and fifth toes in 2015 - Immunizations Hx Diphtheria, Pertussis, Tetanus Vaccination: Yes Hx Pneumococcal Vaccination: 02/25/18 Physical Exam - Vital signs Vitals: Temp Pulse Resp BP Pulse Ox 97.9 F 75 18 178/81 H 99 07/25/19 09:40 07/25/19 09:40 07/25/19 09:40 07/25/19 09:40 07/25/19 09:40 Course - Re-evaluation Re-evalutation: 07/25/19 11:00 Given the above history and physical, triage ordered laboratory values and x- ray. White blood cell count and x-rays recorded. Patient's wound is hemostatic. Patient denies any increased leg swelling. Patient denies any fevers or increased size of the wound. He does have a fish and game warden as well as a referral to the wound care center. We will explain dressing to the patient and if the patient's glucose is unremarkable we will discharge the patient home. - Vital Signs Vital signs: Temp Pulse Resp BP Pulse Ox 97.9 F 75 18 178/81 H 99 07/25/19 09:42 07/25/19 09:40 07/25/19 09:40 07/25/19 09:40 07/25/19 09:40 - Laboratory Result Diagrams: 07/25/19 10:00 07/25/19 10:00 Laboratory results interpreted by me: 07/25/19 07/25/19 10:00 10:05 RBC 3.21 L Hgb 9.4 L Hct 27.9 L RDW 15.7 H Urine Protein >=500 H Urine Glucose (UA) 50 H Discharge - Discharge Clinical Impression: Foot ulcer, left Qualifiers: Non-pressure ulcer stage: unspecified non-pressure ulcer stage Qualified Code(s): L97.529 - Non-pressure chronic ulcer of other part of left foot with unspecified severity Condition: Good Disposition: HOME, SELF-CARE Additional Instructions: Come back immediately for any increase size of the ulcer, pain, fever, vomiting, excessive bleeding, increased swelling of the leg, or any other acute problems. Please follow-up with the fish and game warden as well as the wound care referral as we have discussed. Referrals: JADIEL SHARPE MD [Primary Care Provider] - Follow up as needed
[2019-07-25 11:03] LABS: ALBUMIN 3.4 g/dL (3.5-5.0); ALKALINE PHOSPHATASE 92 U/L (38-126); ANION GAP 10 (5-19); ASPARTATE AMINO TRANSFERASE 22 U/L (17-59); BILIRUBIN,TOTAL 0.4 mg/dL (0.2-1.3); BLOOD UREA NITROGEN 51 mg/dL (7-20); C-REACTIVE PROTEIN 49.9 mg/L (<10.0); CARBON DIOXIDE 27 mmol/L (22-30); CHLORIDE 101 mmol/L (98-107); GLUCOSE 101 mg/dL (75-110); POTASSIUM 4.3 mmol/L (3.6-5.0); TOTAL PROTEIN 7.7 g/dL (6.3-8.2)
[2019-07-25 11:37] LABS: ERYTHROCYTE SEDIMENTATION RATE 116 mm/hr (0-20)
[2019-07-25 12:21] VITALS: BP 174/78
== END 2019-07-25 12:10 | disposition home or self-care (01) ==
LOC: ER 09:36
DX: E11.621 Type 2 diabetes mellitus with foot ulcer (principal); L97.529 Non-pressure chronic ulcer of other part of left foot with unspecified severity; E11.51 Type 2 diabetes mellitus with diabetic peripheral angiopathy without gangrene; I11.0 Hypertensive heart disease with heart failure; I50.42 Chronic combined systolic (congestive) and diastolic (congestive) heart failure
CPT/HCPCS: 36415; 80053; 81001; 85025; 85652; 86140; 87040; 99283

== ENCOUNTER → 2019-08-04 | Outpatient (CLI) | payer MEDICARE, MEDICAID ==
[2019-08-04 11:01] LABS: IRON(TIBC) 75.1 ug/dL (49-181)
== END ==
LOC: OD 10:05
PROVIDERS: ATTEND Physician Assistant
DX: D50.9 Iron deficiency anemia, unspecified (principal)
CPT/HCPCS: 36415; 82728; 83540; 83550

== ENCOUNTER 2019-10-19 04:49 | Inpatient (IN) | payer MEDICARE, MEDICAID ==
[2019-10-19] MEDS ORDERED: FUROSEMIDE INJ/PF 40 MG/4 ML SDV ONE (05:02)
[2019-10-19] MEDS ORDERED: NITROGLYCERIN 2% OINTMENT 1 GM PACKET ONE (05:06)
[2019-10-19] MEDS ORDERED: NITROGLYCERIN/D5W 50 MG/250 ML RTUINJ IV PRN (05:23)
[2019-10-19] MEDS ORDERED: FUROSEMIDE INJ/PF 20 MG/2 ML SDV IV ONE (05:26)
--- NOTE | 2019-10-19 05:27 | ER Document Report ---
Entered by JORGITO SEGOVIA SCRIBE 10/19/19 0512 Acting as scribe for:JAMES NDIAYE IV, MD ED Respiratory Problem - General Mode of Arrival: Wheelchair Information source: Patient, Emergency Med Personnel TRAVEL OUTSIDE OF THE [place] IN LAST 30 DAYS: No <JAMES NDIAYE IV - Last Filed: 10/19/19 06:27> <DEON SALAZAR - Last Filed: 10/19/19 08:24> - General Chief Complaint: Shortness Of Breath Stated Complaint: SHORT OF BREATH Primary Care Provider: ANTONETTE BELTRÁN PA-C [Primary Care Provider] - Follow up as needed Notes: This 59 year old male patient with a history of CHF presents to the ED today via POV with complaints of shortness of breath since yesterday evening, worse prior to arrival. Nursing reports that the patient was noted to be diaphoretic and in acute respiratory distress, so he was immediately wheeled back to [facility] for evaluation. Patient was bagged initially and then placed on BiPAP with increased air movement. (JAMES NDIAYE IV) - Related Data Allergies/Adverse Reactions: No Known Allergies Allergy (Verified 06/10/18 17:31) Past Medical History - General Information source: Emergency Med Personnel, [facility] Records - Social History Smoking Status: Unknown if Ever Smoked Smoking Education Provided: No Lives with: Spouse/Significant other Family History: Reviewed & Not Pertinent, CAD, Hypertension, Malignancy - Past Medical History Cardiac Medical History: Reports: Hx Congestive Heart Failure - Chronic combined systolic and diastolic congestive heart failure, Hx Hypercholesterolemia, Hx Hypertension, Hx Peripheral Vascular Disease Pulmonary Medical History: Reports: Hx Pneumonia, Hx Respiratory Failure Endocrine Medical History: Reports: Hx Diabetes Mellitus Type 2 GI Medical History: Reports: Hx Gastroesophageal Reflux Disease Musculoskeletal Medical History: Reports Hx Arthritis, Reports Hx Musculoskeletal Deformity, Reports Hx Musculoskeletal Trauma Traumatic Medical History: Reports: Hx Fractures Past Surgical History: Reports: Hx Abdominal Surgery, Hx Orthopedic Surgery - 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 - Immunizations Hx Diphtheria, Pertussis, Tetanus Vaccination: Yes Hx Pneumococcal Vaccination: 02/25/18 <JAMES NDIAYE IV - Last Filed: 10/19/19 06:27> Review of Systems - Review of Systems Constitutional: No symptoms reported EENT: No symptoms reported Cardiovascular: No symptoms reported Respiratory: See HPI, Short of breath Gastrointestinal: No symptoms reported Genitourinary: No symptoms reported Male Genitourinary: No symptoms reported Musculoskeletal: See HPI, Leg swelling - chronic Skin: No symptoms reported Hematologic/Lymphatic: No symptoms reported Neurological/Psychological: No symptoms reported -: Yes All other systems reviewed and negative <JAMES NDIAYE IV - Last Filed: 10/19/19 06:27> Physical Exam - HEENT Head: Normocephalic, Atraumatic Eyes: Normal Pupils: PERRL - Cardiovascular Rhythm: Regular, Tachycardia Heart sounds: Normal auscultation Murmur: No Friction rub: No Gallop: None auscultated - Abdominal Inspection: Normal Distension: Distended Bowel sounds: Normal Tenderness: Nontender - Abdomen soft Organomegaly: No organomegaly - Back Back: Normal, Nontender - Extremities General upper extremity: Normal inspection General lower extremity: No: Normal color - Changes in bilateral lower extremities consistent with edema and chronic venous stasis - Psychological Associated symptoms: Other - Unable to assess due to patient's medical condition - Respiratory Distress - Skin Skin Temperature: Warm Skin Moisture: Diaphoretic Skin Color: Normal <JAMES NDIAYE IV - Last Filed: 10/19/19 06:27> - Vital signs Vitals: Pulse Ox 55 L 10/19/19 04:51 - General Notes: Nearly obtunded initially, but became more alert after bagging and being placed on BiPAP. (JAMES NDIAYE IV) - Respiratory Notes: Patient was in obvious respiratory distress with O2 sats in the 60s initially. He appeared almost obtunded and bagging was started immediately after being placed on the stretcher in T2. Once the patient was placed on BiPAP, he started localizing to the mask, reaching for it and he had good air movement. No rales, rhonchi, or wheezing. (JAMES NDIAYE IV) - Neurological Notes: Initially, nearly obtunded and disoriented, but after bagging and being placed on BiPAP, he became more alert and able to speak in short sentences. (JAMES NDIAYE IV) Course - Laboratory Result Diagrams: 10/19/19 05:00 10/19/19 05:00 - Diagnostic Test Radiology reviewed: Image reviewed, Reports reviewed <JAMES NDIAYE IV - Last Filed: 10/19/19 06:27> - Laboratory Result Diagrams: 10/19/19 05:00 10/19/19 05:00 - Diagnostic Test Radiology reviewed: Image reviewed, Reports reviewed <DEON SALAZAR - Last Filed: 10/19/19 08:24> - Re-evaluation Re-evalutation: 10/19/19 08:17 Patient resting comfortable on the BiPAP at this time. Patient able to carry conversation without showing shortness of breath while speaking. Patient reports he has been coughing brown sputum denies any fever chills. Denies any chest pain. Patient denies any COVID exposure. Patient reports he has congestive heart failure that has worsened and last evening he was unable to lie flat therefore with increasing shortness of breath he came into the emergency department. Patient was seen originally by Dr. wyatt who was worked him up for CHF. Chest x-ray shows diffuse bilateral interstitial edema and multi lobar p neumonia with discussed in the x-ray report. With that said I did blood cultures x2 and start cefepime. Patient's current sats are 98% on BiPAP and has diuresed about 800 mL of urine thus far. 10/19/19 08:[address] Nely Hugo for admission to the hospital. (DEON [place]) - Vital Signs Vital signs: Temp Pulse Resp BP Pulse Ox 95.7 F L 18 171/105 H 96 10/19/19 05:00 10/19/19 07:41 10/19/19 07:41 10/19/19 07:41 - Laboratory Laboratory results interpreted by me: 10/19/19 10/19/19 10/19/19 05:00 05:00 05:00 WBC 13.3 H RBC 4.08 L Hgb 11.8 L Hct 35.8 L RDW 17.1 H Absolute Neuts (auto) 8.4 H Carbon Dioxide 19 L BUN 68 H Creatinine 4.85 H Est GFR ( Amer) 15 L Est GFR (MDRD) Non-Af 12 L Glucose 223 H Alkaline Phosphatase 129 H NT-Pro-B Natriuret Pep 5680 H Total Protein 8.3 H 10/19/19 08:19 Labs show elevated white blood cell count elevated BNP 5680 and a BUN of 68 and creatinine of 4.8. (DEON SALAZAR) - Diagnostic Test Radiology results interpreted by me: 10/19/19 08:18 Chest x-ray shows cardiomegaly and bilateral lobar pneumonia with CHF. (DEON SALAZAR) - EKG Interpretation by Me Additional EKG results interpreted by me: 10/19/19 06:21 EKG obtained on 10/19/2019 at 050 0 hours was interpreted by this MD. Findings: Sinus tachycardia, rate 115, ST segments are depressed in V4 through V6. The [facility] impression of this EKG when compared to prior EKG from May 02, 2019 is that the morphology is grossly similar. 10/19/19 06:27 (JAMES NDIAYE IV) 10/19/19 08:20 Twelve-lead EKG shows a sinus tachycardia rate of 115 left atrial abnormality noted and incomplete left bundle branch block. Left ventricular hypertrophy with secondary repolarization changes no acute STEMI. (DEON SALAZAR) Critical Care Note - Critical Care Note Total time excluding time spent on procedures (mins): 90 <JAMES NDIAYE IV - Last Filed: 10/19/19 06:27> Discharge <JAMES NDIAYE IV - Last Filed: 10/19/19 06:27> - Discharge Admitting Provider: leeann Hugo Unit Admitted: I[facility]U <DEON SALAZAR - Last Filed: 10/19/19 08:24> - Discharge Clinical Impression: Acute on chronic diastolic congestive heart failure, Hypertension, Pneumonitis, Chronic kidney disease, stage IV (severe) CHF exacerbation Qualifiers: Heart failure type: unspecified Qualified Code(s): I50.9 - Heart failure, unspecified Condition: Serious Disposition: ADMITTED INPATIENT Referrals: ANTONETTE BELTRÁN PA-C [Primary Care Provider] - Follow up as needed I personally performed the services described in the documentation, reviewed and edited the documentation which was dictated to the scribe in my presence, and it accurately records my words and actions.
--- NOTE | 2019-10-19 05:31 | RADIOLOGY REPORT (SQ) ---
EXAM DESCRIPTION: XR CHEST 1 VIEW COMPLETED DATE/TME: 10/19/2019 05:09 CLINICAL HISTORY: 59 years, Male, respiratory distress COMPARISON: 06/22/2019 chest NUMBER OF VIEWS: 1 TECHNIQUE: Portable chest LIMITATIONS: None. FINDINGS: Cardiomegaly. Extensive airspace opacities bilaterally. No pneumothorax IMPRESSION: Extensive bilateral airspace opacities worrisome for multifocal pneumonia copyright 2010 [employer] All Rights Reserved
[2019-10-19] MEDS ORDERED: NITROGLYCERIN 2% OINTMENT 1 GM PACKET TP ONE (05:43)
[2019-10-19 06:46] LABS: ABSOLUTE BASOPHILS # (AUTO) 0.1 10^3/uL (0.0-0.2); ABSOLUTE EOSINOPHILS # (AUTO) 0.4 10^3/uL (0.0-0.6); ABSOLUTE LYMPHOCYTES (AUTO) 3.5 10^3/uL (0.5-4.7); ABSOLUTE MONOCYTES (AUTO) 0.9 10^3/uL (0.1-1.4); ABSOLUTE NEUT (AUTO) 8.4 10^3/uL (1.7-8.2); HEMATOCRIT 35.8 % (37.9-51.0); HEMOGLOBIN 11.8 g/dL (13.5-17.0); LYMPHOCYTES % (AUTO) 25.9 % (13-45); MEAN CORPUSCULAR HGB CONC 32.9 g/dL (32.0-36.0); MEAN CORPUSCULAR VOLUME 88 fl (80-97); MONOCYTES % (AUTO) 6.8 % (3-13); PLATELET COUNT 430 10^3/uL (150-450); RED BLOOD COUNT 4.08 10^6/uL (4.35-5.55); RED CELL DISTRIBUTION WIDTH 17.1 % (11.5-14.0); SEGMENTED NEUTROPHILS % (AUTO) 63.3 % (42-78); TOTAL CELLS COUNTED % (AUTO) 100 %; WHITE BLOOD COUNT 13.3 10^3/uL (4.0-10.5)
[2019-10-19 07:13] LABS: ALKALINE PHOSPHATASE 129 U/L (38-126); ANION GAP 15 (5-19); ASPARTATE AMINO TRANSFERASE 23 U/L (17-59); BILIRUBIN,DIRECT 0.2 mg/dL (0.0-0.4); BILIRUBIN,TOTAL 0.6 mg/dL (0.2-1.3); BLOOD UREA NITROGEN 68 mg/dL (7-20); CALCIUM 9.2 mg/dL (8.4-10.2); CARBON DIOXIDE 19 mmol/L (22-30); CHLORIDE 106 mmol/L (98-107); GLUCOSE 223 mg/dL (75-110); POTASSIUM 4.2 mmol/L (3.6-5.0); TOTAL PROTEIN 8.3 g/dL (6.3-8.2)
--- NOTE | 2019-10-19 07:53 | EKG REPORT ---
SEVERITY:- ABNORMAL ECG - SINUS TACHYCARDIA PROBABLE LEFT ATRIAL ABNORMALITY INCOMPLETE LEFT BUNDLE BRANCH BLOCK LVH WITH SECONDARY REPOLARIZATION ABNORMALITY : Confirmed by: Anthony Wolfe 19-Oct-2019 07:52:28
[2019-10-19] MEDS ORDERED: CEFEPIME 2 GM/D5W RTU 2 GM/50 ML RTUPB IV ONE (07:57)
[2019-10-19] MEDS ORDERED: HYDRALAZINE HCL INJ/PF 20 MG/1 ML SDV IV ONE (08:04)
[2019-10-19] MEDS ORDERED: ONDANSETRON 4 MG TAB.RAPDIS PO PRN (10:18)
[2019-10-19] MEDS ORDERED: ACETAMINOPHEN 325 MG TABLET PO PRN (10:18)
[2019-10-19] MEDS ORDERED: DEXTROSE 40% GEL 15 GM TUBE PO PRN ×2 (10:21)
[2019-10-19] MEDS ORDERED: DEXTROSE 50%-WATER 25 GM/50 ML DISP.SYRIN IV PRN ×2 (10:21)
[2019-10-19] MEDS ORDERED: GLUCAGON,HUMAN RECOMB 1 MG INJ IM PRN (10:21)
[2019-10-19] MEDS ORDERED: SUCCINYLCHOLINE CHLORIDE INJ 200 MG/10 ML VIAL ONE (10:37)
[2019-10-19] MEDS: INSULIN LISPRO 100 UNIT/ML 3 ML VIAL SUBCUT SCH ×3 (11:49→23:15)
[2019-10-19] MEDS: HYDRALAZINE HCL INJ/PF 20 MG/1 ML SDV IV PRN ×2 (12:13→23:38)
[2019-10-19] MEDS: HEPARIN SOD (PORCINE) 5,000 UNIT/ML 1 ML VIAL SUBCUT SCH ×2 (14:07→22:45)
[2019-10-19] MEDS ORDERED: CARVEDILOL 6.25 MG TABLET ONE (18:04)
[2019-10-19] MEDS: CARVEDILOL 12.5 MG TABLET PO SCH (18:15)
[2019-10-19] MEDS ORDERED: VANCOMYCIN HCL 0 MG in DEXTROSE 5%-WATER 250 ML IV NR (19:30)
--- NOTE | 2019-10-19 19:34 | PDOC H&P ---
History of Present Illness Admission Date/PCP: 10/19/19 09:03 ANTONETTE BELTRÁN PA-C Patient complains of: Shortness of Breath History of Present Illness: JARED HORVATH JR is a 59 year old male, past medical history of congestive heart failure, CKD, admitted multiple times latest one May 2019, who came in today due to SOB. 1 day [employer], the patient started to experience SOB, with orthopnea. He denied any chest pain, fever, but he has a mild cough. He denies any recent sickness, has been compliant with his medications as well as dietary restrictions. SOB progressed hence EMS was called, per ED notes patient was diaphoretic, hypoxic and was initially bagged. BP 171/105, HR 96, RR 18, T 97.8. He was put on BIPAP. BNP 5680, CXR showed findings concerning for multifocal pneumonia. He was given 1 dose of lasix 40 mg IV, given nitroglycerin which improved his symptoms. He was subsequently admitted for further management. Past Medical History Cardiac Medical History: Reports: Congestive Heart Failure - Chronic combined systolic and diastolic congestive heart failure, Hyperlipidema, Hypertension, Peripheral Vascular Disease Denies: Atrial Fibrillation, Coronary Artery Disease, DVT, Myocardial Infarction, Pulmonary Embolism Pulmonary Medical History: Reports: Pneumonia, Respiratory Failure Denies: Asthma, Bronchitis, Chronic Obstructive Pulmonary Disease (COPD), Tuberculosis Neurological Medical History: Denies: Seizures Endocrine Medical History: Reports: Diabetes Mellitus Type 2 Denies: Diabetes Mellitus Type 1, Hyperthyroidism, Hypothyroidism Renal/ Medical History: Reports: Chronic Kidney Disease Denies: End Stage Renal Disease GI Medical History: Reports: Gastroesophageal Reflux Disease Denies: Cirrhosis, Crohn's Disease, Hepatitis, Ulcerative Colitis Musculoskeltal Medical History: Reports: Arthritis Denies: Gout Skin Medical History: Denies: Eczema, Psoriasis Psychiatric Medical History: Denies: Bipolar Disorder, Depression Hematology: Reports: Anemia - Chronic anemia due to chronic kidney disease Denies: Bleeding Tendencies Past Surgical History Past Surgical History: Reports: Orthopedic Surgery - 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 Social History Lives with: Spouse/Significant other Smoking Status: Unknown if Ever Smoked Frequency of Alcohol Use: Heavy Hx Recreational Drug Use: No Drugs: None Hx Prescription Drug Abuse: No Family History Family History: Reviewed & Not Pertinent, CAD, Hypertension, Malignancy Parental Family History Reviewed: Yes Children Family History Reviewed: Yes Sibling(s) Family History Reviewed.: Yes Medication/Allergy Home Medications: Aspirin [Ecotrin 81 mg EC Tablet] 81 mg PO DAILY 12/12/18 Melatonin [Melatonin 3 mg Tablet] 6 mg PO QHS #60 tablet 06/08/19 Glipizide [Glipizide Xl] 10 mg PO DAILY 06/16/19 Carvedilol [Coreg 12.5 mg Tablet] 12.5 mg PO Q12 #60 tablet 06/27/19 Furosemide [Lasix 20 mg Tablet] 20 mg PO BID #60 tablet 06/27/19 Isosorbide Mononitrate [Imdur 60 mg Tablet.er] 60 mg PO DAILY #30 tab.er.24h 06/27/19 Valsartan [Diovan 160 mg Tablet] 160 mg PO DAILY #30 tablet 06/27/19 Nifedipine [Nifedipine ER] 90 mg PO DAILY 10/19/19 Allergies/Adverse Reactions: No Known Allergies Allergy (Verified 06/10/18 17:31) Review of Systems Constitutional: PRESENT: chills, weight gain Eyes: PRESENT: as per HPI Cardiovascular: PRESENT: dyspnea on exertion, edema, orthropnea Respiratory: PRESENT: dyspnea, sputum Gastrointestinal: PRESENT: as per HPI Genitourinary: PRESENT: as per HPI Musculoskeletal: PRESENT: as per HPI Neurological: PRESENT: as per HPI Physical Exam Vital Signs: Temp Pulse Resp BP Pulse Ox 95.7 F L 21 H 192/97 H 99 10/19/19 05:00 10/19/19 18:00 10/19/19 17:51 10/19/19 18:00 Intake & Output 10/18/19 10/19/19 10/20/19 06:59 06:59 06:59 Intake Total 2 103 Output Total 1900 Balance 2 -1797 Weight 115.4 kg 115.4 kg General appearance: PRESENT: obese, other - moderate distress Head exam: PRESENT: atraumatic, normocephalic Eye exam: PRESENT: EOMI, PERRLA Mouth exam: PRESENT: moist Neck exam: PRESENT: full ROM. ABSENT: JVD Respiratory exam: PRESENT: crackles - mid to base, symmetrical, tachypnea Cardiovascular exam: PRESENT: +S1, +S2, tachycardia Pulses: PRESENT: +1 pedal pulses bilateral Vascular exam: PRESENT: other GI/Abdominal exam: PRESENT: normal bowel sounds, soft. ABSENT: tenderness Rectal exam: PRESENT: deferred Extremities exam: PRESENT: +2 edema, other - left leg more than right, patient h as a wound that is being managed by wound care nurse on his left feet Psychiatric exam: PRESENT: normal mood Skin exam: PRESENT: other - venous stasis dermatitis Results Laboratory Results: 10/19/19 05:00 10/19/19 05:00 10/19/19 10/19/19 10/19/19 05:00 05:00 05:00 WBC 13.3 H RBC 4.08 L Hgb 11.8 L Hct 35.8 L MCV 88 MCH 29.0 MCHC 32.9 RDW 17.1 H Plt Count 430 Seg Neutrophils % 63.3 Sodium 140.0 Potassium 4.2 Chloride 106 Carbon Dioxide 19 L Anion Gap 15 BUN 68 H Creatinine 4.85 H Est GFR ( Amer) 15 L Glucose 223 H Lactic Acid 4.6 H Calcium 9.2 Total Bilirubin 0.6 AST 23 Alkaline Phosphatase 129 H Total Protein 8.3 H Albumin 4.0 10/19/19 09:19 WBC RBC Hgb Hct MCV MCH MCHC RDW Plt Count Seg Neutrophils % Sodium Potassium Chloride Carbon Dioxide Anion Gap BUN Creatinine Est GFR ( Amer) Glucose Lactic Acid 0.8 Calcium Total Bilirubin AST Alkaline Phosphatase Total Protein Albumin 10/19/19 10/19/19 05:00 05:00 Troponin I 0.026 NT-Pro-B Natriuret Pep 5680 H Impressions: Chest X-Ray 10/19/19 05:09 IMPRESSION: Extensive bilateral airspace opacities worrisome for multifocal pneumonia copyright 2011 [employer]- All Rights Reserved Assessment and Plan - Diagnosis (1) Acute respiratory failure with hypoxia Is this a current diagnosis for this admission?: Yes Plan: - patient came in obtunded, diaphoretic - improved with BIPAP - CXR multifocal pneumonia - COVID sent - given cefepime. Will switch to zosyn and vanc - continue BIPAP (2) Acute on chronic diastolic congestive heart failure Is this a current diagnosis for this admission?: Yes Plan: - hx of Acute on Chronic CHF - admitted last June 2019 for the same thing. LAst Echo April 2019 EF 40-45% - BNP 5680, Trop negative, EKG sinus tachy - Crea 4.85 baseline around 3.9 - CXR multifocal pneumonia - will continue to diurese him with lasix 40 mg IV bid - will monitor crea daily. - daily weights, strict IO - Cardio consult (3) Chronic kidney disease, stage IV (severe) Is this a current diagnosis for this admission?: Yes Plan: - baseline crea 3.9, crea now 4.85 - acute worsening likely cardiorenal - continue to diurese for now to improve hemodynamcs - will monitor crea daily - consider renal consult if worsens (4) Suspected 2019 novel coronavirus infection Is this a current diagnosis for this admission?: Yes Plan: - no known exposure however patient came in with acute SOB and multifocal pneumonia on CXR - COVID test sent - continue O2 support (5) Diabetes mellitus type 2 in obese Is this a current diagnosis for this admission?: Yes Plan: - will check A1C - sliding scale, hold glipizide - hypoglycemia protocol - accucheck - Time Time Spent with patient: 25-34 minutes Medications reviewed and adjusted accordingly: Yes Anticipated Discharge Disposition: Home with Home Health Anticipated Discharge Timeframe: to be determined - Inpatient Certification Based on my medical assessment, after consideration of the patient's comorbidities, presenting symptoms, or acuity I expect that the services needed warrant INPATIENT care.: Yes I certify that my determination is in accordance with my understanding of Medicare's requirements for reasonable and necessary INPATIENT services [42 CFR 412.3e].: Yes Medical Necessity: Risk of Complication if Not Cared For in Hospital
[2019-10-19] MEDS ORDERED: CARVEDILOL 12.5 MG TABLET PO SCH (22:00)
[2019-10-19] MEDS: FUROSEMIDE INJ/PF 40 MG/4 ML SDV IV SCH (22:45)
[2019-10-19] MEDS: VANCOMYCIN HCL 1,000 MG in DEXTROSE 5%-WATER 250 ML IV SCH (22:45)
[2019-10-19] MEDS: MELATONIN 3 MG TABLET PO SCH (22:45)
[2019-10-19] MEDS: PIPERACILLIN SODIUM/TAZOBACTAM 3.375 GM in NORMAL SALINE 100 ML IV SCH (23:37)
[2019-10-20] MEDS: CARVEDILOL 12.5 MG TABLET PO SCH ×2 (05:18→17:37)
[2019-10-20] MEDS: PIPERACILLIN SODIUM/TAZOBACTAM 3.375 GM in NORMAL SALINE 100 ML IV SCH ×4 (05:19→23:53)
[2019-10-20] MEDS: HEPARIN SOD (PORCINE) 5,000 UNIT/ML 1 ML VIAL SUBCUT SCH ×3 (05:19→21:58)
[2019-10-20 06:56] LABS: ALBUMIN 2.8 g/dL (3.5-5.0); ALKALINE PHOSPHATASE 70 U/L (38-126); ANION GAP 10 (5-19); ASPARTATE AMINO TRANSFERASE 18 U/L (17-59); BILIRUBIN,DIRECT 0.3 mg/dL (0.0-0.4); BLOOD UREA NITROGEN 74 mg/dL (7-20); CALCIUM 8.4 mg/dL (8.4-10.2); CARBON DIOXIDE 19 mmol/L (22-30); CHLORIDE 108 mmol/L (98-107); CHOLESTEROL 189.59 mg/dL (0-200); GLUCOSE 143 mg/dL (75-110); POTASSIUM 5.2 mmol/L (3.6-5.0); TRIGLYCERIDES 104 mg/dL (<150)
[2019-10-20 07:07] LABS: DIRECT LDL 87 mg/dL (<100)
[2019-10-20 08:14] LABS: ABSOLUTE BASOPHILS # (AUTO) 0.1 10^3/uL (0.0-0.2); ABSOLUTE EOSINOPHILS # (AUTO) 0.1 10^3/uL (0.0-0.6); ABSOLUTE LYMPHOCYTES (AUTO) 0.9 10^3/uL (0.5-4.7); ABSOLUTE MONOCYTES (AUTO) 0.8 10^3/uL (0.1-1.4); ABSOLUTE NEUT (AUTO) 8.7 10^3/uL (1.7-8.2); BASOPHILS % (AUTO) 0.7 % (0-2); EOSINOPHILS % (AUTO) 0.8 % (0-6); HEMATOCRIT 23.7 % (37.9-51.0); LYMPHOCYTES % (AUTO) 8.2 % (13-45); MEAN CORPUSCULAR HEMOGLOBIN 30.5 pg (27.0-33.4); MEAN CORPUSCULAR HGB CONC 35.4 g/dL (32.0-36.0); MEAN CORPUSCULAR VOLUME 86 fl (80-97); MONOCYTES % (AUTO) 7.3 % (3-13); PLATELET COUNT 264 10^3/uL (150-450); RED BLOOD COUNT 2.74 10^6/uL (4.35-5.55); RED CELL DISTRIBUTION WIDTH 16.9 % (11.5-14.0); TOTAL CELLS COUNTED % (AUTO) 100 %; WHITE BLOOD COUNT 10.5 10^3/uL (4.0-10.5)
[2019-10-20 08:22] LABS: HEMOGLOBIN 8.4 g/dL (13.5-17.0)
[2019-10-20] MEDS: INSULIN LISPRO 100 UNIT/ML 3 ML VIAL SUBCUT SCH ×4 (08:43→21:58)
[2019-10-20] MEDS: FUROSEMIDE INJ/PF 40 MG/4 ML SDV IV SCH ×2 (09:19→21:57)
[2019-10-20] MEDS: ASPIRIN 81 MG TABLET, ENT COATED PO SCH (09:19)
[2019-10-20] MEDS: DOCUSATE SODIUM 100 MG CAPSULE PO SCH (09:19)
[2019-10-20] MEDS ORDERED: VALSARTAN 160 MG TABLET PO SCH (10:00)
--- NOTE | 2019-10-20 16:57 | PDOC PROGRESS REPORT ---
Subjective Progress Note for:: 10/20/19 Subjective:: Patient was seen and examined at bedside. SOB much less compared to yesterday, minimal cough, afebrile, no chest pain. Reason For Visit: CHF EXACERBATION, SUSPECTED COVID Physical Exam Vital Signs: Temp Pulse Resp BP Pulse Ox 98.1 F 78 20 154/84 H 98 10/20/19 11:53 10/20/19 14:00 10/20/19 11:53 10/20/19 11:53 10/20/19 11:53 Intake & Output 10/19/19 10/20/19 10/21/19 06:59 06:59 06:59 Intake Total 2 554 100 Output Total 3250 Balance 2 -2696 100 Weight 115.4 kg 115.4 kg General appearance: PRESENT: cooperative, mild distress Head exam: PRESENT: atraumatic, normocephalic Eye exam: PRESENT: EOMI, PERRLA Mouth exam: PRESENT: moist Neck exam: PRESENT: full ROM. ABSENT: lymphadenopathy Respiratory exam: PRESENT: clear to auscultation liseth, symmetrical, unlabored Cardiovascular exam: PRESENT: RRR, +S1, +S2 Pulses: PRESENT: normal carotid pulses Vascular exam: PRESENT: normal capillary refill GI/Abdominal exam: PRESENT: normal bowel sounds, soft. ABSENT: distended, guard ing, rebound Rectal exam: PRESENT: deferred Extremities exam: PRESENT: +2 edema - left more than right Neurological exam: PRESENT: alert, awake, oriented to person, oriented to place, oriented to time Psychiatric exam: PRESENT: normal mood Results Laboratory Results: 10/20/19 07:59 10/20/19 05:08 10/20/19 10/20/19 10/20/19 05:08 05:08 07:59 WBC Cancelled 10.5 RBC Cancelled 2.74 L Hgb Cancelled 8.4 L D Hct Cancelled 23.7 L MCV Cancelled 86 MCH Cancelled 30.5 MCHC Cancelled 35.4 RDW Cancelled 16.9 H Plt Count Cancelled 264 Seg Neutrophils % Cancelled 83.0 H Sodium 136.7 L Potassium 5.2 H Chloride 108 H Carbon Dioxide 19 L Anion Gap 10 BUN 74 H Creatinine 4.60 H Est GFR ( Amer) 16 L Glucose 143 H Calcium 8.4 Total Bilirubin 1.0 AST 18 Alkaline Phosphatase 70 Total Protein 6.0 L Albumin 2.8 L Triglycerides 104 Cholesterol 189.59 LDL Cholesterol Direct 87 VLDL Cholesterol 21.0 HDL Cholesterol 44 10/19/19 10/19/19 05:00 05:00 Troponin I 0.026 NT-Pro-B Natriuret Pep 5680 H Impressions: Chest X-Ray 10/19/19 05:09 IMPRESSION: Extensive bilateral airspace opacities worrisome for multifocal pneumonia copyright 2011 [employer]- All Rights Reserved Assessment and Plan - Diagnosis (1) Pneumonia Qualifiers: Pneumonia type: due to unspecified organism Laterality: bilateral Lung location: lower lobe of lung Qualified Code(s): J18.9 - Pneumonia, unspecified organism Is this a current diagnosis for this admission?: Yes Plan: - came in with SOB, denies any significant exposure - WBC 13.3>10.5, afebrile, minimal cough - CXR multifocal pneumonia - BCx 1 bottle growing Gram +ve in clusters. Awaiting species. Can be a contaminant - continue ZOsyn and vanc for now - awaiting COVID (2) Acute on chronic diastolic congestive heart failure Is this a current diagnosis for this admission?: Yes Plan: - hx of Acute on Chronic CHF - admitted last June 2019 for the same thing. LAst Echo April 2019 EF 40-45% - BNP 5680, Trop negative, EKG sinus tachy - Crea 4.85>4.6 baseline around 3.9 - CXR multifocal pneumonia - cholesterol 190 should be on statin - continue to diurese him with lasix 40 mg IV bid - monitor crea daily. - daily weights, strict IO - Cardio consult (3) Acute respiratory failure with hypoxia Is this a current diagnosis for this admission?: Yes Plan: - patient came in obtunded, diaphoretic - improved with BIPAP, saturating 95% on nasal cannula - CXR multifocal pneumonia - COVID sent awaiting result - on zosyn and vanc - continue BIPAP at night and as needed (4) Chronic kidney disease, stage IV (severe) Is this a current diagnosis for this admission?: Yes Plan: - baseline crea 3.9, crea now 4.85>4.6 - acute worsening likely cardiorenal - continue to diurese for now to improve hemodynamcs - will monitor crea daily - consider renal consult if worsens (5) Suspected 2019 novel coronavirus infection Is this a current diagnosis for this admission?: Yes Plan: - no known exposure however patient came in with acute SOB and multifocal pneumonia on CXR - COVID test sent - continue O2 support (6) Diabetes mellitus type 2 in obese Is this a current diagnosis for this admission?: Yes Plan: - will check A1C - sliding scale, hold glipizide - hypoglycemia protocol - accucheck - Plan Summary Summary: The patient is admitted due to CHF exacerbation and pneumonia. He has been admitted multiple times in the past for the same. Last echo EF 40-45%. PLan is to continue diuresing him and treat pneumonia as bacterial pending COVID result. Dr. King on board for cardio - Time Time Spent with patient: 15-24 minutes Medications reviewed and adjusted accordingly: Yes Anticipated Discharge Disposition: Home, Self Care Anticipated Discharge Timeframe: to be determined
[2019-10-20] MEDS: VANCOMYCIN HCL 1,000 MG in DEXTROSE 5%-WATER 250 ML IV SCH (21:58)
--- NOTE | 2019-10-20 22:43 | PDOC CONSULTATION ---
Consultation-Blank Consultation: CARDIOLOGY CONSULTATION by Dr. Deonna Iniguez on 10/20/2019. Patient seen on 10/20/2027 5 PM. 60 minutes spent on this patient more than 50% of time spent in direct patient care. CONSULT REQUESTING PHYSICIAN: Dr. Nely Hugo, [facility] hospitalist physician group REASON FOR CONSULTATION: Patient with symptoms of acute on chronic biventricular systolic heart failure. HISTORY OF PRESENT ILLNESS: Patient is a 59-year-old Afro-[place] male with known history of hypertension, diabetes mellitus, chronic kidney disease, and dilated cardiomyopathy with chronic leg edema states that he was told in the wound clinic that he needed to be taking more protein. As the patient started taking a lot of Ensure. This with his high sodium content the patient has started having since 2 to 3 days of progressively increasing leg edema. He also had symptoms of PND orthopnea and shortness of breath which started as dyspnea on exertion and ended up with rest shortness of breath. The patient now after diuresis with IV Lasix feels better. The patient does not have good insight into his medical comorbidities. He denies any palpitations or syncope. He denies any cough fever chills or rigors. He denies any TIA CVA symptoms. There is no syncope. Past Medical History Cardiac Medical History: Reports: Congestive Heart Failure - Chronic combined systolic and diastolic congestive heart failure, Hyperlipidema, Hypertension, Peripheral Vascular Disease Denies: Atrial Fibrillation, Coronary Artery Disease, DVT, Myocardial Infarction, Pulmonary Embolism Pulmonary Medical History: Reports: Pneumonia, Respiratory Failure Denies: Asthma, Bronchitis, Chronic Obstructive Pulmonary Disease (COPD), T uberculosis Neurological Medical History: Denies: Seizures Endocrine Medical History: Reports: Diabetes Mellitus Type 2 Denies: Diabetes Mellitus Type 1, Hyperthyroidism, Hypothyroidism Renal/ Medical History: Reports: Chronic Kidney Disease Denies: End Stage Renal Disease GI Medical History: Reports: Gastroesophageal Reflux Disease Denies: Cirrhosis, Crohn's Disease, Hepatitis, Ulcerative Colitis Musculoskeltal Medical History: Reports: Arthritis Denies: Gout Skin Medical History: Denies: Eczema, Psoriasis Psychiatric Medical History: Denies: Bipolar Disorder, Depression Hematology: Reports: Anemia - Chronic anemia due to chronic kidney disease Denies: Bleeding Tendencies Past Surgical History Past Surgical History: Reports: Orthopedic Surgery - 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 Social History Lives with: Spouse/Significant other Smoking Status: Unknown if Ever Smoked Frequency of Alcohol Use: Heavy Hx Recreational Drug Use: No Drugs: None Hx Prescription Drug Abuse: No Family History Family History: Reviewed & Not Pertinent, CAD, Hypertension, Malignancy Parental Family History Reviewed: Yes Children Family History Reviewed: Yes Sibling(s) Family History Reviewed.: Yes Medication/Allergy Home Medications: Aspirin [Ecotrin 81 mg EC Tablet] 81 mg PO DAILY 12/12/18 Melatonin [Melatonin 3 mg Tablet] 6 mg PO QHS #60 tablet 06/08/19 Glipizide [Glipizide Xl] 10 mg PO DAILY 06/16/19 Carvedilol [Coreg 12.5 mg Tablet] 12.5 mg PO Q12 #60 tablet 06/27/19 Furosemide [Lasix 20 mg Tablet] 20 mg PO BID #60 tablet 06/27/19 Isosorbide Mononitrate [Imdur 60 mg Tablet.er] 60 mg PO DAILY #30 tab.er.24h 06/27/19 Valsartan [Diovan 160 mg Tablet] 160 mg PO DAILY #30 tablet 06/27/19 Nifedipine [Nifedipine ER] 90 mg PO DAILY 10/19/19 Allergies/Adverse Reactions: No Known Allergies Allergy (Verified 06/10/18 17:31) Current Medications Generic Name Dose Route Start Last Admin Trade Name Freq PRN Reason Stop Dose Admin Acetaminophen 650 mg 10/19/19 10:18 Tylenol 325 Mg Tablet PO 11/18/19 10:17 Q4HP PRN FEVER >101 Aspirin 81 mg 10/20/19 10:00 10/20/19 09:19 Ecotrin 81 Mg Ec Tablet PO 11/19/19 09:59 81 mg DAILY CATHY Administration Carvedilol 12.5 mg 10/19/19 19:00 10/20/19 17:37 Coreg 12.5 Mg Tablet PO 11/18/19 18:59 12.5 mg Q12A CATHY Administration Dextrose 12.5 gm 10/19/19 10:21 Dextrose Inj 50% Syringe (25 Gm/50 Ml) IV 11/18/19 10:20 PRN PRN FOR BG 50-69 IN ALERT PATIENT Protocol Dextrose 25 gm 10/19/19 10:21 Dextrose Inj 50% Syringe (25 Gm/50 Ml) IV 11/18/19 10:20 PRN PRN PER PROTOCOL Protocol Docusate Sodium 100 mg 10/20/19 10:00 10/20/19 09:19 Colace 100 Mg Capsule PO 11/19/19 09:59 100 mg DAILY CATHY Administration Furosemide 40 mg 10/19/19 22:00 10/20/19 21:57 Lasix Inj/Pf 40 Mg/4 Ml Sdv IV 11/18/19 21:59 40 mg Q12 CATHY Administration Glucagon 1 mg 10/19/19 10:21 Glucagen Inj 1 Mg Vial IM 11/18/19 10:20 PRN PRN Evaluate for BG < 70 Protocol Glucose 15 gm 10/19/19 10:21 Glutose 40% Gel 15 Gm Tube PO 11/18/19 10:20 PRN PRN FOR BG 50-69 IN ALERT PATIENT Protocol Glucose 30 gm 10/19/19 10:21 Glutose 40% Gel 15 Gm Tube PO 11/18/19 10:20 PRN PRN FOR BG < 50 IN ALERT PATIENT Protocol Heparin Sodium (Porcine) 5,000 unit 10/19/19 14:00 10/20/19 21:58 Heparin Inj 5,000 Units/Ml 1 Ml Vial SUBCUT 11/18/19 13:59 5,000 unit Q8 CATHY Administration Hydralazine HCl 10 mg 10/19/19 11:25 10/19/19 23:38 Apresoline Inj/Pf 20 Mg/1 Ml Sdv IV 11/18/19 11:24 10 mg Q8HP PRN Administration FOR SBP >190 AND/OR DBP > 100 Nitroglycerin/Dextrose 50 mg in 250 mls @ 0 mls/hr 10/19/19 05:23 10/20/19 07:00 Ntg Rtu 50 Mg/D5w 250 Ml Iv Premix Bottle IV 11/18/19 05:22 Infused CONTINUOUS PRN Titration THIS MED IS NOT "PRN" Protocol Titrate Piperacillin Sod/Tazobactam 100 mls @ 200 mls/hr 10/20/19 00:00 10/20/19 21:49 Sod 3.375 gm/ Sodium Chloride IV 10/27/19 00:00 Infused Q6 CATHY Infusion Vancomycin HCl 1,000 mg/ 250 mls @ 166.667 mls/hr 10/19/19 22:00 10/20/19 21:58 Dextrose IV 10/26/19 21:59 166.67 mls/hr QHS CATHY 166.67 mls/hr Administration Insulin Human Lispro 0 - 12 unit 10/19/19 11:00 10/20/19 21:58 Humalog Insulin 100 Unit/1 Ml 3 Ml Vial SUBCUT 11/18/19 10:59 2 unit ACHS CATHY Administration Protocol Melatonin 6 mg 10/19/19 22:00 10/19/19 22:45 Melatonin 3 Mg Tablet PO 11/18/19 21:59 6 mg QHS CATHY Administration Ondansetron HCl 4 mg 10/19/19 10:18 10/19/19 23:49 Zofran Odt 4 Mg Tablet PO 11/18/19 10:17 4 mg Q8HP PRN Administration FOR NAUSEA/VOMITING Valsartan 160 mg 10/20/19 10:00 10/20/19 09:19 Diovan 160 Mg Tablet PO 11/19/19 09:59 160 mg DAILY CATHY Administration Discontinued Medications Generic Name Dose Route Start Last Admin Trade Name Freq PRN Reason Stop Dose Admin Carvedilol 12.5 mg 10/19/19 22:00 Coreg 12.5 Mg Tablet PO 11/18/19 21:59 Q12 REPLACED BY [facility] Carvedilol Confirm 10/19/19 18:04 10/19/19 18:15 Coreg 6.25 Mg Tablet Administered 10/19/19 18:05 Not Given Dose 6.25 mg .ROUTE .STK-MED ONE Furosemide Confirm 10/19/19 05:02 10/19/19 05:45 Lasix Inj/Pf 40 Mg/4 Ml Sdv Administered 10/19/19 05:03 Not Given Dose 40 mg .ROUTE .STK-MED ONE Furosemide 40 mg 10/19/19 05:26 10/19/19 05:04 Lasix Inj/Pf 20 Mg/2 Ml Sdv IV 10/19/19 05:27 40 mg NOW ONE Administration Hydralazine HCl 20 mg 10/19/19 08:04 10/19/19 08:31 Apresoline Inj/Pf 20 Mg/1 Ml Sdv IV 10/19/19 08:05 20 mg NOW ONE Administration Cefepime HCl 2 gm in 50 mls @ 100 mls/hr 10/19/19 07:57 10/19/19 09:09 Maxipime Rtu 2 Gm-D5w 50 Ml Premix Bag IV 10/19/19 08:26 Infused NOW ONE Infusion Nitroglycerin Confirm 10/19/19 05:06 10/19/19 05:45 Nitrol 2% Ointment 1gm Packet Administered 10/19/19 05:07 Not Given Dose 1 gm .ROUTE .STK-MED ONE Nitroglycerin 1 gm 10/19/19 05:43 10/19/19 05:10 Nitrol 2% Ointment 1gm Packet TP 10/19/19 05:44 1 gm NOW ONE Administration Succinylcholine Chloride 200 mg 10/19/19 10:37 Anectine Inj 200 Mg/10 Ml Vial .ROUTE 10/19/19 10:38 .STK-MED ONE REVIEW of SYSTEMS: CONSTITUTIONAL: No history of fever chills or rigors. Complains of generalized fatigue and weakness. Head: No history of headaches or head injury. EYES: No history of appropriate diplopia. No history of amaurosis fugax. EARS: No history of hearing loss. No history of tinnitus. NOSE: No history of hayfever no history of nosebleeds. MOUTH: No history of altered taste sensation. No history of ulcers in the mouth. Throat: No history of odynophagia or dysphagia. No history of recurrent sore throats. LUNGS: No history of asthma or COPD and no history of pulmonary embolism. The patient does have symptoms suggestive of sleep apnea, but has not had a sleep study. Cardiac no history of PR. History of hypertension recent symptoms of biventricular heart failure of 40% to 45%. There is also moderate pulmonary hypertension. There is no palpitations or syncope. ORGANIZATIONAL RESEARCH CONSULTANT: No history of TIA CVA. No history of headaches migraines or seizures. PSYCHIATRIC: No history of anxiety or depression. No suicidal ideation. ENDOCRINE: History of diabetes mellitus with diabetic nephropathy. No history of thyroid disease. GI: No history of GI bleed no history of peptic ulcer disease. PHYSICAL EXAMINATION: The patient is mildly obese. In no acute distress. Selected Entries 10/20/19 19:29 Temperature 97.9 F Temperature Oral Source Pulse Rate 73 Respiratory 17 Rate Blood Pressure 156/74 H Blood Pressure 101 Mean BP Location Right Arm BP Position Sitting O2 Sat by Pulse 97 Oximetry Oxygen Flow 2.50 Rate Oxygen Delivery Nasal Cannula Method HEAD: Is atraumatic normocephalic. EYES: Pupils are equal round regular reactive to light and accommodation. Extraocular movements are normal. There is no clinical pallor. There is no scleral icterus. EARS: External auditory canals are clear. There is no lesions on the pinna. NOSE: Nasal mucous membranes him without any inflammation. There is no deviated nasal septum. MOUTH: Mucous noted in the mouth are moist tongue is moist. There is no ulcers. There is no bleeding from the gums. THROAT: There is no redness of the oropharynx. There is no exudates. SKIN: There is no petechia or ecchymosis. There is no skin lesions or skin rashes. The patient does have venous stasis dermatitis and lower extremities. LUNGS: There are a few dry crackles in the right base. No rales of CHF today. There is no chest wall tenderness. There is no rhonchi or wheezing. HEART: S1-S2 is heard there is murmur of aortic sclerosis present. No aortic stenosis murmur. No aortic regurgitation murmur there is systolic murmur in the left sternal border and the apex without any radiation. There is no rub. There is no S3 gallop. There is no S4 gallop. ABDOMEN: Is mildly obese. Nontender. The bowel sounds are normal. There is no hepatosplenomegaly. There is no rebound guarding or rigidity. EXTREMITIES: Femorals are diminished. Leg pulses are diminished. There is 2+ edema bilaterally. There is no DVT. There is venous stasis dermatitis present. There is no calf tenderness. ORGANIZATIONAL RESEARCH CONSULTANT: The patient is conscious awake alert oriented x3 with no focal deficit. PSYCHIATRIC: The patient judgment insight are intact his affect is normal. EKG:SINUS TACHYCARDIA [PLAA] . PROBABLE LEFT ATRIAL ABNORMALITY [ILBBB] . INCOMPLETE LEFT BUNDLE BRANCH BLOCK [LVHREP] . LVH WITH SECONDARY REPOLARIZATION ABNORMALITY Labs- Entire Visit 10/19/19 10/19/19 10/19/19 05:00 05:00 05:00 WBC 13.3 H RBC 4.08 L Hgb 11.8 L Hct 35.8 L MCV 88 MCH 29.0 MCHC 32.9 RDW 17.1 H Plt Count 430 Lymph % (Auto) 25.9 Dewey % (Auto) 6.8 Eos % (Auto) 3.0 Baso % (Auto) 1.0 Absolute Neuts (auto) 8.4 H Absolute Lymphs (auto) 3.5 Absolute Monos (auto) 0.9 Absolute Eos (auto) 0.4 Absolute Basos (auto) 0.1 Seg Neutrophils % 63.3 Platelet Estimate Sodium 140.0 Potassium 4.2 Chloride 106 Carbon Dioxide 19 L Anion Gap 15 BUN 68 H Creatinine 4.85 H Est GFR ( Amer) 15 L Est GFR (MDRD) Non-Af 12 L Glucose 223 H POC Glucose Hemoglobin A1c % Lactic Acid Calcium 9.2 Total Bilirubin 0.6 Direct Bilirubin 0.2 Neonat Total Bilirubin Not Reportable Neonat Direct Bilirubin Not Reportable Neonat Indirect Bili Not Reportable AST 23 ALT 20 Alkaline Phosphatase 129 H Troponin I NT-Pro-B Natriuret Pep 5680 H Total Protein 8.3 H Albumin 4.0 Triglycerides Cholesterol LDL Cholesterol Direct VLDL Cholesterol HDL Cholesterol COVID-19 Source COVID-19 (DARREN) Slides for Path Review 10/19/19 10/19/19 10/19/19 05:00 05:00 09:19 WBC RBC Hgb Hct MCV MCH MCHC RDW Plt Count Lymph % (Auto) Dewey % (Auto) Eos % (Auto) Baso % (Auto) Absolute Neuts (auto) Absolute Lymphs (auto) Absolute Monos (auto) Absolute Eos (auto) Absolute Basos (auto) Seg Neutrophils % Platelet Estimate Sodium Potassium Chloride Carbon Dioxide Anion Gap BUN Creatinine Est GFR ( Amer) Est GFR (MDRD) Non-Af Glucose POC Glucose Hemoglobin A1c % Lactic Acid 4.6 H 0.8 Calcium Total Bilirubin Direct Bilirubin Neonat Total Bilirubin Neonat Direct Bilirubin Neonat Indirect Bili AST ALT Alkaline Phosphatase Troponin I 0.026 NT-Pro-B Natriuret Pep Total Protein Albumin Triglycerides Cholesterol LDL Cholesterol Direct VLDL Cholesterol HDL Cholesterol COVID-19 Source COVID-19 (DARREN) Slides for Path Review 10/19/19 10/19/19 10/19/19 11:00 11:01 16:25 WBC RBC Hgb Hct MCV MCH MCHC RDW Plt Count Lymph % (Auto) Dewey % (Auto) Eos % (Auto) Baso % (Auto) Absolute Neuts (auto) Absolute Lymphs (auto) Absolute Monos (auto) Absolute Eos (auto) Absolute Basos (auto) Seg Neutrophils % Platelet Estimate Sodium Potassium Chloride Carbon Dioxide Anion Gap BUN Creatinine Est GFR ( Amer) Est GFR (MDRD) Non-Af Glucose POC Glucose 159 H 144 H Hemoglobin A1c % Lactic Acid Calcium Total Bilirubin Direct Bilirubin Neonat Total Bilirubin Neonat Direct Bilirubin Neonat Indirect Bili AST ALT Alkaline Phosphatase Troponin I NT-Pro-B Natriuret Pep Total Protein Albumin Triglycerides Cholesterol LDL Cholesterol Direct VLDL Cholesterol HDL Cholesterol COVID-19 Source NASOPHARYNGEAL COVID-19 (DARREN) NOT DETECTED Slides for Path Review 10/19/19 10/20/19 10/20/19 23:13 05:08 05:08 WBC Cancelled RBC Cancelled Hgb Cancelled Hct Cancelled MCV Cancelled MCH Cancelled MCHC Cancelled RDW Cancelled Plt Count Cancelled Lymph % (Auto) Cancelled Dewey % (Auto) Cancelled Eos % (Auto) Cancelled Baso % (Auto) Cancelled Absolute Neuts (auto) Cancelled Absolute Lymphs (auto) Cancelled Absolute Monos (auto) Cancelled Absolute Eos (auto) Cancelled Absolute Basos (auto) Cancelled Seg Neutrophils % Cancelled Platelet Estimate Cancelled Sodium 136.7 L Potassium 5.2 H Chloride 108 H Carbon Dioxide 19 L Anion Gap 10 BUN 74 H Creatinine 4.60 H Est GFR ( Amer) 16 L Est GFR (MDRD) Non-Af 13 L Glucose 143 H POC Glucose 149 H Hemoglobin A1c % Lactic Acid Calcium 8.4 Total Bilirubin 1.0 Direct Bilirubin 0.3 Neonat Total Bilirubin Not Reportable Neonat Direct Bilirubin Not Reportable Neonat Indirect Bili Not Reportable AST 18 ALT 13 Alkaline Phosphatase 70 Troponin I NT-Pro-B Natriuret Pep Total Protein 6.0 L Albumin 2.8 L Triglycerides 104 Cholesterol 189.59 LDL Cholesterol Direct 87 VLDL Cholesterol 21.0 HDL Cholesterol 44 COVID-19 Source COVID-19 (DARREN) Slides for Path Review Cancelled 10/20/19 10/20/19 10/20/19 07:59 07:59 08:39 WBC 10.5 RBC 2.74 L Hgb 8.4 L D Hct 23.7 L MCV 86 MCH 30.5 MCHC 35.4 RDW 16.9 H Plt Count 264 Lymph % (Auto) 8.2 L Dewey % (Auto) 7.3 Eos % (Auto) 0.8 Baso % (Auto) 0.7 Absolute Neuts (auto) 8.7 H Absolute Lymphs (auto) 0.9 Absolute Monos (auto) 0.8 Absolute Eos (auto) 0.1 Absolute Basos (auto) 0.1 Seg Neutrophils % 83.0 H Platelet Estimate Sodium Potassium Chloride Carbon Dioxide Anion Gap BUN Creatinine Est GFR ( Amer) Est GFR (MDRD) Non-Af Glucose POC Glucose 144 H Hemoglobin A1c % 5.4 Lactic Acid Calcium Total Bilirubin Direct Bilirubin Neonat Total Bilirubin Neonat Direct Bilirubin Neonat Indirect Bili AST ALT Alkaline Phosphatase Troponin I NT-Pro-B Natriuret Pep Total Protein Albumin Triglycerides Cholesterol LDL Cholesterol Direct VLDL Cholesterol HDL Cholesterol COVID-19 Source COVID-19 (DARREN) Slides for Path Review 10/20/19 10/20/19 10/20/19 11:53 15:56 21:20 WBC RBC Hgb Hct MCV MCH MCHC RDW Plt Count Lymph % (Auto) Dewey % (Auto) Eos % (Auto) Baso % (Auto) Absolute Neuts (auto) Absolute Lymphs (auto) Absolute Monos (auto) Absolute Eos (auto) Absolute Basos (auto) Seg Neutrophils % Platelet Estimate Sodium Potassium Chloride Carbon Dioxide Anion Gap BUN Creatinine Est GFR ( Amer) Est GFR (MDRD) Non-Af Glucose POC Glucose 157 H 136 H 176 H Hemoglobin A1c % Lactic Acid Calcium Total Bilirubin Direct Bilirubin Neonat Total Bilirubin Neonat Direct Bilirubin Neonat Indirect Bili AST ALT Alkaline Phosphatase Troponin I NT-Pro-B Natriuret Pep Total Protein Albumin Triglycerides Cholesterol LDL Cholesterol Direct VLDL Cholesterol HDL Cholesterol COVID-19 Source COVID-19 (DARREN) Slides for Path Review Chest X-Ray 10/19/19 05:09 IMPRESSION: Extensive bilateral airspace opacities worrisome for multifocal pneumonia copyright 2011 [email or web address] Rights Reserved IMPRESSION/RECOMMENDATION: 1. Acute on chronic biventricular systolic heart failure. [Acute on chronic right ventricle systolic and left ventricle systolic heart failure]. Continue IV Lasix, continue beta-janice and ARB. Would recommend increase the patient's Diovan. Also would increase his Coreg to 25 mg p.o. every 12 hours. Patient needs education about dietary restrictions. 2. Dilated cardiomyopathy and ischemic cardiomyopathy with moderately reduced LV ejection fraction. The patient in August 31, 2019 had IV Lexiscan Cardiolite stress test. This showed no reversible ischemia. There is a large severe scar of the inferior inferolateral and lateral tse and cannot exclude very minimal scar of the apical anterior wall. His last echocardiogram showed LV ejection fraction of 45% and moderately reduced LV ejection fraction. 3. Hypertension blood pressure much better controlled. But expect with increase in the beta-janice and ARB, the patient's blood pressure will be much improved. In view of the patient diabetes would like to get the systolic down to 110 or below as long as the patient is not symptomatic due to low blood pressure. 4. Diabetes mellitus: Continue antidiabetic treatment. 5. Chronic kidney disease stage III . Continue to watch renal function so has not to over diuresis the patient. Medications reviewed medical regimen management plan discussed with attending provider on the case. Medical decision making is of high complexity. 60 minutes spent as patient more than 50% of time spent in direct patient care. Will follow.
[2019-10-20] MEDS: MELATONIN 3 MG TABLET PO SCH (23:17)
[2019-10-21 04:20] LABS: ABSOLUTE EOSINOPHILS # (AUTO) 0.4 10^3/uL (0.0-0.6); ABSOLUTE LYMPHOCYTES (AUTO) 1.4 10^3/uL (0.5-4.7); ABSOLUTE MONOCYTES (AUTO) 0.8 10^3/uL (0.1-1.4); ABSOLUTE NEUT (AUTO) 5.1 10^3/uL (1.7-8.2); BASOPHILS % (AUTO) 0.4 % (0-2); HEMATOCRIT 24.7 % (37.9-51.0); HEMOGLOBIN 8.4 g/dL (13.5-17.0); LYMPHOCYTES % (AUTO) 18.1 % (13-45); MEAN CORPUSCULAR HEMOGLOBIN 29.5 pg (27.0-33.4); MEAN CORPUSCULAR HGB CONC 33.8 g/dL (32.0-36.0); MEAN CORPUSCULAR VOLUME 87 fl (80-97); MONOCYTES % (AUTO) 9.8 % (3-13); PLATELET COUNT 241 10^3/uL (150-450); RED BLOOD COUNT 2.83 10^6/uL (4.35-5.55); RED CELL DISTRIBUTION WIDTH 16.9 % (11.5-14.0); SEGMENTED NEUTROPHILS % (AUTO) 66.7 % (42-78); TOTAL CELLS COUNTED % (AUTO) 100 %; WHITE BLOOD COUNT 7.7 10^3/uL (4.0-10.5)
[2019-10-21 04:41] LABS: ALBUMIN 2.8 g/dL (3.5-5.0); ALKALINE PHOSPHATASE 63 U/L (38-126); ANION GAP 9 (5-19); ASPARTATE AMINO TRANSFERASE 16 U/L (17-59); BILIRUBIN,DIRECT 0.2 mg/dL (0.0-0.4); BILIRUBIN,TOTAL 0.7 mg/dL (0.2-1.3); BLOOD UREA NITROGEN 79 mg/dL (7-20); CALCIUM 8.3 mg/dL (8.4-10.2); CARBON DIOXIDE 18 mmol/L (22-30); CHLORIDE 111 mmol/L (98-107); GLUCOSE 111 mg/dL (75-110); POTASSIUM 4.4 mmol/L (3.6-5.0); TOTAL PROTEIN 5.9 g/dL (6.3-8.2)
[2019-10-21] MEDS: HEPARIN SOD (PORCINE) 5,000 UNIT/ML 1 ML VIAL SUBCUT SCH ×3 (05:48→22:11)
[2019-10-21] MEDS: CARVEDILOL 12.5 MG TABLET PO SCH ×2 (05:48→18:24)
[2019-10-21] MEDS: PIPERACILLIN SODIUM/TAZOBACTAM 3.375 GM in NORMAL SALINE 100 ML IV SCH ×3 (05:53→18:24)
[2019-10-21] MEDS: INSULIN LISPRO 100 UNIT/ML 3 ML VIAL SUBCUT SCH ×3 (08:11→18:21)
[2019-10-21] MEDS: ASPIRIN 81 MG TABLET, ENT COATED PO SCH (10:56)
[2019-10-21] MEDS: DOCUSATE SODIUM 100 MG CAPSULE PO SCH (10:56)
[2019-10-21] MEDS: FUROSEMIDE INJ/PF 40 MG/4 ML SDV IV SCH ×2 (10:56→22:12)
[2019-10-21] MEDS: VALSARTAN 160 MG TABLET PO SCH ×2 (10:56→22:10)
--- NOTE | 2019-10-21 11:40 | Progress Note ---
Provider Note Provider Note: CARDIOLOGY PROGRESS NOTE by Dr. Deonna Iniguez on 10/21/2019. SUBJECTIVE: The patient states his shortness of breath is better. He has no PND. There is no arrhythmias seen on the monitor. He is leg edema is much improved. He still has a Diaz catheter and wants that taken out. He denies any chest pain or discomfort. He still has orthopnea. He has no chest pain or discomfort. PHYSICAL EXAMINATION: The patient mildly obese. In no acute distress Selected Entries 10/21/19 12:04 Temperature 98.2 F Temperature Oral Source Pulse Rate 66 Respiratory 19 Rate Blood Pressure 147/64 H Blood Pressure 91 Mean BP Location Right Arm BP Position Sitting O2 Sat by Pulse 100 Oximetry Oxygen Flow 3.00 Rate Oxygen Delivery Nasal Cannula Method HEAD: Is atraumatic normocephalic. EYES: Pupils are equal round regular reactive to light and accommodation. Extraocular movements are normal. There is no clinical pallor. There is no scleral icterus. EARS: External auditory canals are clear. There is no lesions on the pinna. NOSE: Nasal mucous membranes him without any inflammation. There is no deviated nasal septum. MOUTH: Mucous noted in the mouth are moist tongue is moist. There is no ulcers. There is no bleeding from the gums. THROAT: There is no redness of the oropharynx. There is no exudates. SKIN: There is no petechia or ecchymosis. There is no skin lesions or skin rashes. The patient does have venous stasis dermatitis and lower extremities. LUNGS: There are a few dry crackles in the right base. No rales of CHF today. There is no chest wall tenderness. There is no rhonchi or wheezing. HEART: S1-S2 is heard there is murmur of aortic sclerosis present. No aortic stenosis murmur. No aortic regurgitation murmur there is systolic murmur in the left sternal border and the apex without any radiation. There is no rub. There is no S3 gallop. There is no S4 gallop. ABDOMEN: Is mildly obese. Nontender. The bowel sounds are normal. There is no hepatosplenomegaly. There is no rebound guarding or rigidity. EXTREMITIES: Femorals are diminished. Leg pulses are diminished. There is mild edema bilaterally. There is no DVT. There is venous stasis dermatitis present. There is no calf tenderness. ACCOUNT LEADER: The patient is conscious awake alert oriented x3 with no focal deficit. PSYCHIATRIC: The patient judgment insight are intact his affect is normal. The patient's intake and output for the last 48 hours since admission is 1464 mL intake and 4050 mL output. Labs- All tests 24 hr 10/21/19 10/21/19 10/21/19 04:04 04:04 07:40 WBC 7.7 RBC 2.83 L Hgb 8.4 L Hct 24.7 L MCV 87 MCH 29.5 MCHC 33.8 RDW 16.9 H Plt Count 241 Lymph % (Auto) 18.1 [place] % (Auto) 9.8 Eos % (Auto) 5.0 Baso % (Auto) 0.4 Absolute Neuts (auto) 5.1 Absolute Lymphs (auto) 1.4 Absolute Monos (auto) 0.8 Absolute Eos (auto) 0.4 Absolute Basos (auto) 0.0 Seg Neutrophils % 66.7 Sodium 138.4 Potassium 4.4 Chloride 111 H Carbon Dioxide 18 L Anion Gap 9 BUN 79 H Creatinine 5.19 H Est GFR ( Amer) 14 L Est GFR (MDRD) Non-Af 11 L Glucose 111 H POC Glucose 129 H Calcium 8.3 L Total Bilirubin 0.7 Direct Bilirubin 0.2 Neonat Total Bilirubin Not Reportable Neonat Direct Bilirubin Not Reportable Neonat Indirect Bili Not Reportable AST 16 L ALT 12 Alkaline Phosphatase 63 Total Protein 5.9 L Albumin 2.8 L 10/21/19 10/21/19 10/21/19 12:01 16:29 20:34 WBC RBC Hgb Hct MCV MCH MCHC RDW Plt Count Lymph % (Auto) [place] % (Auto) Eos % (Auto) Baso % (Auto) Absolute Neuts (auto) Absolute Lymphs (auto) Absolute Monos (auto) Absolute Eos (auto) Absolute Basos (auto) Seg Neutrophils % Sodium Potassium Chloride Carbon Dioxide Anion Gap BUN Creatinine Est GFR ( Amer) Est GFR (MDRD) Non-Af Glucose POC Glucose 171 H 135 H 137 H Calcium Total Bilirubin Direct Bilirubin Neonat Total Bilirubin Neonat Direct Bilirubin Neonat Indirect Bili AST ALT Alkaline Phosphatase Total Protein Albumin Chest X-Ray 10/19/19 05:09 IMPRESSION: Extensive bilateral airspace opacities worrisome for multifocal pneumonia copyright 2011 [employer]- All Rights Reserved IMPRESSION/RECOMMENDATION: 1. Acute on chronic biventricular systolic heart failure. [Acute on chronic right ventricle systolic and left ventricle systolic heart failure]. Continue IV Lasix, continue beta-janice and ARB. Would recommend increase the patient's Diovan. Also would increase his Coreg to 25 mg p.o. every 12 hours. Patient needs education about dietary restrictions. 2. Dilated cardiomyopathy and ischemic cardiomyopathy with moderately reduced LV ejection fraction. The patient in August 31, 2019 had IV Lexiscan Cardiolite stress test. This showed no reversible ischemia. There is a large severe scar of the inferior inferolateral and lateral tse and cannot exclude very minimal scar of the apical anterior wall. His last echocardiogram showed LV ejection fraction of 45% and moderately reduced LV ejection fraction. 3. Bilateral multifocal pneumonia: The patient is being started on antibiotics. 4. Hypertension blood pressure much better controlled. But expect with increase in the beta-janice and ARB, the patient's blood pressure will be much improved. In view of the patient diabetes would like to get the systolic down to 110 or below as long as the patient is not symptomatic due to low blood pressure. Patient tolerating increased dose of Coreg and valsartan. 4. Diabetes mellitus: Continue antidiabetic treatment. 5. Chronic kidney disease stage III . Continue to watch renal function so has not to over diuresis the patient. Patient making slow improvement. Medications reviewed. Medical regimen and management plan discussed with attending provider on the case. Medical decision making is of moderate complexity. 40 minutes spent as patient more than 50% of time spent in direct patient care. Will follow
--- NOTE | 2019-10-21 16:29 | PDOC PROGRESS REPORT ---
Subjective Progress Note for:: 10/21/19 Subjective:: Patient is sitting up in the chair and resting. He is asking why he still has a Diaz catheter. He is asking for to be removed. Dr. King has made some medication changes. Reason For Visit: CHF EXACERBATION, SUSPECTED COVID Physical Exam Vital Signs: Temp Pulse Resp BP Pulse Ox 97.6 F 65 18 149/76 H 99 10/21/19 07:39 10/21/19 07:39 10/21/19 07:39 10/21/19 07:39 10/21/19 07:39 Intake & Output 10/20/19 10/21/19 10/22/19 06:59 06:59 06:59 Intake Total 554 910 100 Output Total 3250 800 Balance -2696 110 100 Weight 115.4 kg 115.4 kg General appearance: PRESENT: no acute distress, cooperative, well-developed Ear exam: PRESENT: normal external ear exam. ABSENT: bleeding, drainage Respiratory exam: PRESENT: clear to auscultation liseth, symmetrical, unlabored. ABSENT: rales, rhonchi, tachypnea, wheezes Cardiovascular exam: PRESENT: RRR, +S1, +S2 GI/Abdominal exam: PRESENT: soft. ABSENT: tenderness Rectal exam: PRESENT: deferred Gentrourinary exam: PRESENT: indwelling catheter Extremities exam: PRESENT: other - 3+ left leg Neurological exam: PRESENT: alert, awake, oriented to person, oriented to place, oriented to time, oriented to situation, CN II-XII grossly intact Psychiatric exam: PRESENT: appropriate affect. ABSENT: agitated, anxious Focused psych exam: ABSENT: delusional, paranoid, restlessness Skin exam: PRESENT: dry, normal color, warm Results Laboratory Results: 10/21/19 04:04 10/21/19 04:04 10/21/19 10/21/19 04:04 04:04 WBC 7.7 RBC 2.83 L Hgb 8.4 L Hct 24.7 L MCV 87 MCH 29.5 MCHC 33.8 RDW 16.9 H Plt Count 241 Seg Neutrophils % 66.7 Sodium 138.4 Potassium 4.4 Chloride 111 H Carbon Dioxide 18 L Anion Gap 9 BUN 79 H Creatinine 5.19 H Est GFR ( Amer) 14 L Glucose 111 H Calcium 8.3 L Total Bilirubin 0.7 AST 16 L Alkaline Phosphatase 63 Total Protein 5.9 L Albumin 2.8 L 10/19/19 10/19/19 05:00 05:00 Troponin I 0.026 NT-Pro-B Natriuret Pep 5680 H Impressions: Chest X-Ray 10/19/19 05:09 IMPRESSION: Extensive bilateral airspace opacities worrisome for multifocal pneumonia copyright 2011 [employer]- All Rights Reserved Assessment and Plan - Diagnosis (1) Pneumonia Qualifiers: Pneumonia type: due to unspecified organism Laterality: bilateral Lung location: lower lobe of lung Qualified Code(s): J18.9 - Pneumonia, unspecified organism Is this a current diagnosis for this admission?: Yes Plan: The patient is feeling better. He is still oxygen dependent. He is tolerating the antibiotics. White blood cell count is normal. Continue antibiotics and oxygen supplementation. (2) Acute on chronic combined systolic and diastolic congestive heart failure Is this a current diagnosis for this admission?: Yes Plan: Echocardiogram in June revealed decreased ejection fraction of 40 to 45% with grade 1/4 diastolic dysfunction. On Coreg, valsartan and furosemide. Continue to monitor intake and output. (3) Acute respiratory failure with hypoxia Is this a current diagnosis for this admission?: Yes Plan: Continue oxygen supplementation. I believe the patient is at the point where he will need ongoing home oxygen therapy. (4) Hyperglycemia due to diabetes mellitus Is this a current diagnosis for this admission?: Yes Plan: Continue Accu-Cheks and sliding scale coverage. Return to glipizide at discharge. (5) Chronic kidney disease, stage IV (severe) Is this a current diagnosis for this admission?: Yes Plan: Continue to monitor renal function especially with changes in medication. (6) Hyperlipidemia associated with type 2 diabetes mellitus Is this a current diagnosis for this admission?: Yes Plan: Statin therapy added (7) Suspected 2019 novel coronavirus infection Is this a current diagnosis for this admission?: Yes Plan: Serology negative - Plan Summary Summary: The patient is admitted due to CHF exacerbation and pneumonia. He has been admitted multiple times in the past for the same. Last echo EF 40-45%. PLan is to continue diuresing him and treat pneumonia as bacterial pending COVID result. Dr. King on board for cardio - Time Time Spent with patient: 15-24 minutes Anticipated Discharge Disposition: Home with Home Health Anticipated Discharge Timeframe: within 48 hours
[2019-10-21] MEDS: VANCOMYCIN HCL 1,000 MG in DEXTROSE 5%-WATER 250 ML IV SCH (22:03)
[2019-10-21] MEDS: MELATONIN 3 MG TABLET PO SCH (22:09)
[2019-10-22] MEDS: INSULIN LISPRO 100 UNIT/ML 3 ML VIAL SUBCUT SCH ×5 (00:15→22:29)
[2019-10-22] MEDS: PIPERACILLIN SODIUM/TAZOBACTAM 3.375 GM in NORMAL SALINE 100 ML IV SCH ×2 (00:16→05:39)
[2019-10-22 05:40] LABS: ABSOLUTE BASOPHILS # (AUTO) 0.1 10^3/uL (0.0-0.2); ABSOLUTE EOSINOPHILS # (AUTO) 0.4 10^3/uL (0.0-0.6); ABSOLUTE LYMPHOCYTES (AUTO) 1.2 10^3/uL (0.5-4.7); ABSOLUTE MONOCYTES (AUTO) 0.6 10^3/uL (0.1-1.4); BASOPHILS % (AUTO) 1.2 % (0-2); HEMOGLOBIN 8.3 g/dL (13.5-17.0); LYMPHOCYTES % (AUTO) 18.6 % (13-45); MEAN CORPUSCULAR HEMOGLOBIN 29.1 pg (27.0-33.4); MEAN CORPUSCULAR HGB CONC 33.3 g/dL (32.0-36.0); MEAN CORPUSCULAR VOLUME 88 fl (80-97); MONOCYTES % (AUTO) 9.7 % (3-13); PLATELET COUNT 259 10^3/uL (150-450); RED BLOOD COUNT 2.86 10^6/uL (4.35-5.55); RED CELL DISTRIBUTION WIDTH 16.7 % (11.5-14.0); SEGMENTED NEUTROPHILS % (AUTO) 63.5 % (42-78); TOTAL CELLS COUNTED % (AUTO) 100 %; WHITE BLOOD COUNT 6.4 10^3/uL (4.0-10.5)
[2019-10-22] MEDS: HEPARIN SOD (PORCINE) 5,000 UNIT/ML 1 ML VIAL SUBCUT SCH ×3 (05:45→21:28)
[2019-10-22] MEDS: CARVEDILOL 12.5 MG TABLET PO SCH ×2 (05:45→17:30)
[2019-10-22 05:56] LABS: ALBUMIN 2.8 g/dL (3.5-5.0); ALKALINE PHOSPHATASE 60 U/L (38-126); ANION GAP 7 (5-19); ASPARTATE AMINO TRANSFERASE 17 U/L (17-59); BILIRUBIN,DIRECT 0.3 mg/dL (0.0-0.4); BILIRUBIN,TOTAL 0.5 mg/dL (0.2-1.3); BLOOD UREA NITROGEN 74 mg/dL (7-20); CALCIUM 8.2 mg/dL (8.4-10.2); CARBON DIOXIDE 20 mmol/L (22-30); CHLORIDE 112 mmol/L (98-107); GLUCOSE 108 mg/dL (75-110); POTASSIUM 4.6 mmol/L (3.6-5.0); TOTAL PROTEIN 6.1 g/dL (6.3-8.2)
[2019-10-22] MEDS: ASPIRIN 81 MG TABLET, ENT COATED PO SCH (10:20)
[2019-10-22] MEDS: DOCUSATE SODIUM 100 MG CAPSULE PO SCH (10:20)
[2019-10-22] MEDS: VALSARTAN 160 MG TABLET PO SCH ×2 (10:20→21:28)
[2019-10-22] MEDS: FUROSEMIDE INJ/PF 40 MG/4 ML SDV IV SCH ×2 (10:20→21:28)
[2019-10-22] MEDS: PIPERACILLIN SODIUM/TAZOBACTAM 2.25 GM in NORMAL SALINE 50 ML IV SCH ×2 (13:55→21:29)
--- NOTE | 2019-10-22 20:11 | PDOC PROGRESS REPORT ---
Subjective Progress Note for:: 10/22/19 Subjective:: Continues to feel better. Diaz catheter was removed and he is urinating spontaneously. Breathing is better but he still requires oxygen therapy. Reason For Visit: CHF EXACERBATION, SUSPECTED COVID Physical Exam Vital Signs: Temp Pulse Resp BP Pulse Ox 97.7 F 69 18 173/85 H 100 10/22/19 16:42 10/22/19 19:00 10/22/19 16:42 10/22/19 16:42 10/22/19 16:42 Intake & Output 10/21/19 10/22/19 10/23/19 06:59 06:59 06:59 Intake Total 910 1290 1998 Output Total 800 1675 Balance 110 -385 1998 Weight 115.4 kg 112.3 kg General appearance: PRESENT: no acute distress, cooperative, well-developed Head exam: PRESENT: atraumatic, normocephalic Ear exam: PRESENT: normal external ear exam. ABSENT: bleeding, drainage Respiratory exam: PRESENT: clear to auscultation liseth, symmetrical, unlabored. ABSENT: rales, rhonchi, tachypnea, wheezes Cardiovascular exam: PRESENT: RRR, +S1, +S2 GI/Abdominal exam: PRESENT: normal bowel sounds, soft. ABSENT: distended, tenderness Rectal exam: PRESENT: deferred Gentrourinary exam: ABSENT: indwelling catheter Extremities exam: PRESENT: +2 edema Musculoskeletal exam: PRESENT: ambulatory Neurological exam: PRESENT: alert, awake, oriented to person, oriented to place, oriented to time, oriented to situation, CN II-XII grossly intact. ABSENT: altered Psychiatric exam: PRESENT: appropriate affect. ABSENT: agitated, anxious Focused psych exam: ABSENT: delusional, paranoid, restlessness Results Laboratory Results: 10/22/19 04:56 10/22/19 04:56 10/22/19 10/22/19 04:56 04:56 WBC 6.4 RBC 2.86 L Hgb 8.3 L Hct 25.0 L MCV 88 MCH 29.1 MCHC 33.3 RDW 16.7 H Plt Count 259 Seg Neutrophils % 63.5 Sodium 139.4 Potassium 4.6 Chloride 112 H Carbon Dioxide 20 L Anion Gap 7 BUN 74 H Creatinine 5.46 H Est GFR ( Amer) 13 L Glucose 108 Calcium 8.2 L Total Bilirubin 0.5 AST 17 Alkaline Phosphatase 60 Total Protein 6.1 L Albumin 2.8 L 10/19/19 05:00 Blood Blood Culture - Final Staphylococcus Epidermidis 10/19/19 10/19/19 05:00 05:00 Troponin I 0.026 NT-Pro-B Natriuret Pep 5680 H Impressions: Chest X-Ray 10/19/19 05:09 IMPRESSION: Extensive bilateral airspace opacities worrisome for multifocal pneumonia copyright 2011 [employer]- All Rights Reserved Assessment and Plan - Diagnosis (1) Pneumonia Qualifiers: Pneumonia type: due to unspecified organism Laterality: bilateral Lung location: lower lobe of lung Qualified Code(s): J18.9 - Pneumonia, unspecified organism Is this a current diagnosis for this admission?: Yes Plan: White blood cell count is normalized. Can complete antibiotics with oral medications at discharge. (2) Acute on chronic combined systolic and diastolic congestive heart failure Is this a current diagnosis for this admission?: Yes Plan: Symptomatically improved. Unfortunately strict I's and O's are not being adhered to so true fluid balance is unknown. (3) Acute respiratory failure with hypoxia Is this a current diagnosis for this admission?: Yes Plan: Will need home oxygen therapy due to worsening chronic heart failure (4) Hyperglycemia due to diabetes mellitus Is this a current diagnosis for this admission?: Yes Plan: Continue control carbohydrate diet. Resume glipizide at discharge. (5) Chronic kidney disease, stage IV (severe) Is this a current diagnosis for this admission?: Yes Plan: Continue to monitor. No significant improvement at this time. GFR still remains in the mid teens. (6) Hyperlipidemia associated with type 2 diabetes mellitus Is this a current diagnosis for this admission?: Yes Plan: Statin therapy added due to elevated total cholesterol and LDL (7) Suspected 2019 novel coronavirus infection Is this a current diagnosis for this admission?: Yes Plan: Negative serology - Plan Summary Summary: The patient is admitted due to CHF exacerbation and pneumonia. He has been admitted multiple times in the past for the same. Last echo EF 40-45%. PLan is t o continue diuresing him and treat pneumonia as bacterial pending COVID result. Dr. King on board for cardio - Time Time Spent with patient: 15-24 minutes Medications reviewed and adjusted accordingly: Yes Anticipated Discharge Disposition: Home, Self Care Anticipated Discharge Timeframe: within 24 hours
[2019-10-22] MEDS: MELATONIN 3 MG TABLET PO SCH (21:35)
[2019-10-22 21:54] LABS: VANCOMYCIN,TROUGH 17.1 ug/mL (5.0-20.0)
[2019-10-22] MEDS ORDERED: ATORVASTATIN CALCIUM 40 MG TABLET PO SCH (22:00)
[2019-10-22] MEDS ORDERED: HYDRALAZINE HCL 25 MG TABLET PO ONE (22:45)
--- NOTE | 2019-10-22 22:47 | Progress Note ---
Provider Note Provider Note: CARDIOLOGY PROGRESS NOTE by Dr. Deonna Iniguez on 10/22/2019. SUBJECTIVE: The patient denies any chest pain or discomfort although he denies any shortness of breath he is still requires oxygen. His Diaz was removed and he is urinating spontaneously. He has no chest pain or discomfort. There is no cough or sputum production. The patient has chronic orthopnea which is improved. There is no PND or palpitations. There is no arrhythmias seen on the monitor. His leg edema is much improved. He is afebrile. PHYSICAL EXAMINATION: The patient is mildly obese. In no acute distress Selected Entries 10/22/19 16:42 Temperature 97.7 F Temperature Oral Source Pulse Rate 68 Respiratory 18 Rate Blood Pressure 173/85 H Blood Pressure 114 Mean BP Location Right Arm BP Position Sitting O2 Sat by Pulse 100 Oximetry Oxygen Flow 3.00 Rate Oxygen Delivery Nasal Cannula Method HEAD: Is atraumatic normocephalic. EYES: Pupils are equal round regular reactive to light and accommodation. Extraocular movements are normal. There is no clinical pallor. There is no scleral icterus. EARS: External auditory canals are clear. There is no lesions on the pinna. NOSE: Nasal mucous membranes him without any inflammation. There is no deviated nasal septum. M OUTH: Mucous noted in the mouth are moist tongue is moist. There is no ulcers. There is no bleeding from the gums. THROAT: There is no redness of the oropharynx. There is no exudates. SKIN: There is no petechia or ecchymosis. There is no skin lesions or skin rashes. The patient does have venous stasis dermatitis and lower extremities. LUNGS: There are a few dry crackles in the right base. No rales of CHF today. There is no chest wall tenderness. There is no rhonchi or wheezing. HEART: S1-S2 is heard there is murmur of aortic sclerosis present. No aortic stenosis murmur. No aortic regurgitation murmur there is systolic murmur in the left sternal border and the apex without any radiation. There is no rub. There is no S3 gallop. There is no S4 gallop. ABDOMEN: Is mildly obese. Nontender. The bowel sounds are normal. There is no hepatosplenomegaly. There is no rebound guarding or rigidity. EXTREMITIES: Femorals are diminished. Leg pulses are diminished. There is mild edema bilaterally. There is no DVT. There is venous stasis dermatitis present. There is no calf tenderness. FINISH INSPECTOR: The patient is conscious awake alert oriented x3 with no focal deficit. PSYCHIATRIC: The patient judgment insight are intact his affect is normal. Labs- All tests 24 hr 10/22/19 10/22/19 10/22/19 04:56 04:56 07:19 WBC 6.4 RBC 2.86 L Hgb 8.3 L Hct 25.0 L MCV 88 MCH 29.1 MCHC 33.3 RDW 16.7 H Plt Count 259 Lymph % (Auto) 18.6 [place] % (Auto) 9.7 Eos % (Auto) 7.0 H Baso % (Auto) 1.2 Absolute Neuts (auto) 4.0 Absolute Lymphs (auto) 1.2 Absolute Monos (auto) 0.6 Absolute Eos (auto) 0.4 Absolute Basos (auto) 0.1 Seg Neutrophils % 63.5 Sodium 139.4 Potassium 4.6 Chloride 112 H Carbon Dioxide 20 L Anion Gap 7 BUN 74 H Creatinine 5.46 H Est GFR ( Amer) 13 L Est GFR (MDRD) Non-Af 11 L Glucose 108 POC Glucose 112 H Calcium 8.2 L Total Bilirubin 0.5 Direct Bilirubin 0.3 Neonat Total Bilirubin Not Reportable Neonat Direct Bilirubin Not Reportable Neonat Indirect Bili Not Reportable AST 17 ALT 14 Alkaline Phosphatase 60 Total Protein 6.1 L Albumin 2.8 L Time Trough Drawn Vancomycin Trough 10/22/19 10/22/19 10/22/19 11:45 16:40 21:00 WBC RBC Hgb Hct MCV MCH MCHC RDW Plt Count Lymph % (Auto) [place] % (Auto) Eos % (Auto) Baso % (Auto) Absolute Neuts (auto) Absolute Lymphs (auto) Absolute Monos (auto) Absolute Eos (auto) Absolute Basos (auto) Seg Neutrophils % Sodium Potassium Chloride Carbon Dioxide Anion Gap BUN Creatinine Est GFR ( Amer) Est GFR (MDRD) Non-Af Glucose POC Glucose 207 H 73 169 H Calcium Total Bilirubin Direct Bilirubin Neonat Total Bilirubin Neonat Direct Bilirubin Neonat Indirect Bili AST ALT Alkaline Phosphatase Total Protein Albumin Time Trough Drawn Vancomycin Trough 10/22/19 21:20 WBC RBC Hgb Hct MCV MCH MCHC RDW Plt Count Lymph % (Auto) [place] % (Auto) Eos % (Auto) Baso % (Auto) Absolute Neuts (auto) Absolute Lymphs (auto) Absolute Monos (auto) Absolute Eos (auto) Absolute Basos (auto) Seg Neutrophils % Sodium Potassium Chloride Carbon Dioxide Anion Gap BUN Creatinine Est GFR ( Amer) Est GFR (MDRD) Non-Af Glucose POC Glucose Calcium Total Bilirubin Direct Bilirubin Neonat Total Bilirubin Neonat Direct Bilirubin Neonat Indirect Bili AST ALT Alkaline Phosphatase Total Protein Albumin Time Trough Drawn 2120 Vancomycin Trough 17.1 Chest X-Ray 10/19/19 05:09 IMPRESSION: Extensive bilateral airspace opacities worrisome for multifocal pneumonia copyright 2010 [employer] All Rights Reserved IMPRESSION/RECOMMENDATION: 1. Acute on chronic biventricular systolic heart failure. [Acute on chronic right ventricle systolic and left ventricle systolic heart failure]. Continue IV Lasix, continue beta-janice and ARB. Would recommend increase the patient's Diovan. Also would increase his Coreg to 25 mg p.o. every 12 hours. Patient needs education about dietary restrictions. 2. Dilated cardiomyopathy and ischemic cardiomyopathy with moderately reduced LV ejection fraction. The patient in August 31, 2019 had IV Lexiscan Cardiolite stress test. This showed no reversible ischemia. There is a large severe scar of the inferior inferolateral and lateral tse and cannot exclude very minimal scar of the apical anterior wall. His last echocardiogram showed LV ejection fraction of 45% and moderately reduced LV ejection fraction. 3. Bilateral multifocal pneumonia: The patient is being started on antibiotics. Clinically the patient does not behave like he is having an pneumonia. 4. Hypertension : His blood pressure is not well controlled. This is in spite of the patient being on good doses of valsartan and Coreg. Hence we will had hydralazine 4. Diabetes mellitus: Continue antidiabetic treatment. 5. Chronic kidney disease stage III . Continue to watch renal function so has not to over diuresis the patient. Patient making slow improvement. Medications reviewed. Medical regimen and management plan discussed with attending provider on the case. Medical decision making is of moderate complexity. 40 minutes spent as patient more than 50% of time spent in direct patient care. Will follow
[2019-10-23] MEDS: HEPARIN SOD (PORCINE) 5,000 UNIT/ML 1 ML VIAL SUBCUT SCH ×2 (05:30→13:12)
[2019-10-23] MEDS: CARVEDILOL 12.5 MG TABLET PO SCH (05:30)
[2019-10-23] MEDS: HYDRALAZINE HCL 25 MG TABLET PO SCH ×2 (05:30→13:13)
[2019-10-23] MEDS: PIPERACILLIN SODIUM/TAZOBACTAM 2.25 GM in NORMAL SALINE 50 ML IV SCH ×2 (05:30→13:12)
[2019-10-23 06:56] LABS: ANION GAP 9 (5-19); BLOOD UREA NITROGEN 67 mg/dL (7-20); CALCIUM 8.2 mg/dL (8.4-10.2); CARBON DIOXIDE 21 mmol/L (22-30); CHLORIDE 111 mmol/L (98-107); GLUCOSE 96 mg/dL (75-110); PHOSPHORUS 6.2 mg/dL (2.5-4.5); POTASSIUM 4.4 mmol/L (3.6-5.0)
[2019-10-23] MEDS: INSULIN LISPRO 100 UNIT/ML 3 ML VIAL SUBCUT SCH ×2 (10:08→13:13)
[2019-10-23] MEDS: FUROSEMIDE INJ/PF 40 MG/4 ML SDV IV SCH (10:13)
[2019-10-23] MEDS: VALSARTAN 160 MG TABLET PO SCH (10:14)
[2019-10-23] MEDS: DOCUSATE SODIUM 100 MG CAPSULE PO SCH (10:14)
[2019-10-23] MEDS: ASPIRIN 81 MG TABLET, ENT COATED PO SCH (10:14)
--- NOTE | 2019-10-23 13:46 | PDOC PROGRESS REPORT ---
Subjective Progress Note for:: 10/23/19 Subjective:: Resting comfortably. Remains on oxygen. 4 L nasal cannula. Reason For Visit: CHF EXACERBATION, SUSPECTED COVID Physical Exam Vital Signs: Temp Pulse Resp BP Pulse Ox 97.4 F 74 18 167/73 H 97 10/23/19 10:00 10/23/19 08:36 10/23/19 08:36 10/23/19 08:36 10/23/19 08:36 Intake & Output 10/22/19 10/23/19 10/24/19 06:59 06:59 06:59 Intake Total 1290 2459 Output Total 1675 225 Balance -385 2234 Weight 112.3 kg 112.3 kg General appearance: PRESENT: no acute distress, cooperative, well-developed Head exam: PRESENT: atraumatic, normocephalic Eye exam: PRESENT: conjunctiva pale. ABSENT: scleral icterus Ear exam: PRESENT: normal external ear exam. ABSENT: bleeding, drainage Teeth exam: ABSENT: poor dentation Respiratory exam: PRESENT: rales - Faint rales at bases, symmetrical, unlabored. ABSENT: rhonchi, tachypnea, wheezes Cardiovascular exam: PRESENT: RRR, +S1, +S2, systolic murmur - 2/6. ABSENT: bradycardia, irregular rhythm, tachycardia GI/Abdominal exam: PRESENT: normal bowel sounds, soft. ABSENT: distended, tende rness Rectal exam: PRESENT: deferred Extremities exam: PRESENT: +2 edema Musculoskeletal exam: PRESENT: ambulatory Neurological exam: PRESENT: alert, awake, oriented to person, oriented to place, oriented to time, oriented to situation, CN II-XII grossly intact. ABSENT: altered Psychiatric exam: PRESENT: appropriate affect. ABSENT: agitated, anxious Focused psych exam: ABSENT: delusional, paranoid, restlessness Skin exam: PRESENT: dry, warm. ABSENT: rash Results Laboratory Results: 10/22/19 04:56 10/23/19 05:58 10/23/19 05:58 Sodium 140.7 Potassium 4.4 Chloride 111 H Carbon Dioxide 21 L Anion Gap 9 BUN 67 H Creatinine 5.32 H Est GFR ( Amer) 13 L Glucose 96 Calcium 8.2 L Phosphorus 6.2 H Magnesium 1.8 Albumin 3.0 L 10/19/19 10/19/19 05:00 05:00 Troponin I 0.026 NT-Pro-B Natriuret Pep 5680 H Impressions: Chest X-Ray 10/19/19 05:09 IMPRESSION: Extensive bilateral airspace opacities worrisome for multifocal pneumonia copyright 2011 [employer]- All Rights Reserved Assessment and Plan - Diagnosis (1) Pneumonia Qualifiers: Pneumonia type: due to unspecified organism Laterality: bilateral Lung location: lower lobe of lung Qualified Code(s): J18.9 - Pneumonia, unspecified organism Is this a current diagnosis for this admission?: Yes (2) Acute on chronic combined systolic and diastolic congestive heart failure Is this a current diagnosis for this admission?: Yes (3) Acute respiratory failure with hypoxia Is this a current diagnosis for this admission?: Yes (4) Hyperglycemia due to diabetes mellitus Is this a current diagnosis for this admission?: Yes (5) Chronic kidney disease, stage IV (severe) Is this a current diagnosis for this admission?: Yes (6) Hyperlipidemia associated with type 2 diabetes mellitus Is this a current diagnosis for this admission?: Yes (7) Suspected 2019 novel coronavirus infection Is this a current diagnosis for this admission?: Yes - Plan Summary Summary: The patient is admitted due to CHF exacerbation and pneumonia. He has been admitted multiple times in the past for the same. Last echo EF 40-45%. PLan is to continue diuresing him and treat pneumonia as bacterial pending COVID result. Dr. King on board for cardio
--- NOTE | 2019-10-23 14:56 | PDOC DISCHARGE SUMMARY ---
Impression - Admit/DC Date/PCP Admission Date/Primary Care Provider: 10/19/19 09:03 ANTONETTE BELTRÁN PA-C Discharge Date: 10/23/19 - Discharge Diagnosis (1) Pneumonia Is this a current diagnosis for this admission?: Yes (2) Acute on chronic combined systolic and diastolic congestive heart failure Is this a current diagnosis for this admission?: Yes (3) Acute respiratory failure with hypoxia Is this a current diagnosis for this admission?: Yes (4) Hyperglycemia due to diabetes mellitus Is this a current diagnosis for this admission?: Yes (5) Chronic kidney disease, stage IV (severe) Is this a current diagnosis for this admission?: Yes (6) Hyperlipidemia associated with type 2 diabetes mellitus Is this a current diagnosis for this admission?: Yes (7) Suspected 2019 novel coronavirus infection Is this a current diagnosis for this admission?: Yes - Assessment Summary: The patient is admitted due to CHF exacerbation and pneumonia. He has been admitted multiple times in the past for the same. Last echo EF 40-45%. PLan is to continue diuresing him and treat pneumonia as bacterial pending COVID result. Dr. King on board for cardio - Additional Information Discharge Diet: Cardiac, Diabetic Discharge Activity: Activity As Tolerated, Balance Activity w/Rest, Weigh Daily Referrals: JADIEL SHARPE MD [COMMUNITY BASED STAFF] - 11/03/19 3:15 pm Prescriptions: Hydralazine HCl [Apresoline 25 mg Tablet] 25 mg PO Q8 #90 tablet Carvedilol 25 mg PO Q12 #60 tablet Valsartan [Diovan 160 mg Tablet] 160 mg PO Q12 #60 tablet Furosemide [Lasix 40 mg Tablet] 40 mg PO BID 30 Days #60 tablet Atorvastatin Calcium [Lipitor 40 mg Tablet] 40 mg PO QHS #30 tablet Doxycycline Hyclate [Vibramycin 100 mg Tablet] 100 mg PO BID 7 Days #14 tablet Home Medications: Aspirin [Ecotrin 81 mg EC Tablet] 81 mg PO DAILY 12/12/18 Melatonin [Melatonin 3 mg Tablet] 6 mg PO QHS #60 tablet 06/08/19 Glipizide [Glipizide Xl] 10 mg PO DAILY 06/16/19 Isosorbide Mononitrate [Imdur 60 mg Tablet.er] 60 mg PO DAILY #30 tab.er.24h 06/27/19 Atorvastatin Calcium [Lipitor 40 mg Tablet] 40 mg PO QHS #30 tablet 10/23/19 Carvedilol 25 mg PO Q12 #60 tablet 10/23/19 Docusate Sodium [Colace 100 mg Capsule] 100 mg PO DAILY capsule 10/23/19 Doxycycline Hyclate [Vibramycin 100 mg Tablet] 100 mg PO BID 7 Days #14 tablet 10/23/19 Furosemide [Lasix 40 mg Tablet] 40 mg PO BID 30 Days #60 tablet 10/23/19 Hydralazine HCl [Apresoline 25 mg Tablet] 25 mg PO Q8 #90 tablet 10/23/19 Valsartan [Diovan 160 mg Tablet] 160 mg PO Q12 #60 tablet 10/23/19 History of Present Illiness History of Present Illness: JARED HORVATH JR is a 59 year old male, past medical history of congestive heart failure, CKD, admitted multiple times latest one May 2019, who came in today due to SOB. 1 day [employer], the patient started to experience SOB, with orthopnea. He denied any chest pain, fever, but he has a mild cough. He denies any recent sickness, has been compliant with his medications as well as dietary restrictions. SOB progressed hence EMS was called, per ED notes patient was diaphoretic, hypoxic and was initially bagged. BP 171/105, HR 96, RR 18, T 97.8. He was put on BIPAP. BNP 5680, CXR showed findings concerning for multifocal pneumonia. He was given 1 dose of lasix 40 mg IV, given nitroglycerin which improved his symptoms. He was subsequently admitted for further management. Hospital Course Hospital Course: The patient had a fairly unremarkable hospital course. He was seen by Dr. iKng. Dr. Zepeda increased his carvedilol to 25 mg twice daily and his Diovan increased to 160 mg twice daily. He is no longer on the nifedipine. His furosemide dose was increased to 40 mg twice daily as well. He was requiring oxygen up until the last day. When they did his walking oximetry on room air he never dropped below 90% and therefore no oxygen was required and I was able to discharge him. The question of pneumonia is marginal. It could have been all fluid but I did discharge him with a doxycycline prescription just to be safe. Physical Exam Vital Signs: Temp Pulse Resp BP Pulse Ox 97.4 F 74 18 167/73 H 97 10/23/19 10:00 10/23/19 08:36 10/23/19 08:36 10/23/19 08:36 10/23/19 08:36 Intake & Output 10/22/19 10/23/19 10/24/19 06:59 06:59 06:59 Intake Total 1290 2459 Output Total 1675 225 Balance -385 2234 Weight 112.3 kg 112.3 kg General appearance: PRESENT: no acute distress, well-developed Respiratory exam: PRESENT: clear to auscultation liseth, symmetrical, unlabored. ABSENT: rales, rhonchi, tachypnea, wheezes Cardiovascular exam: PRESENT: RRR, +S1, +S2 GI/Abdominal exam: PRESENT: normal bowel sounds, soft. ABSENT: tenderness Extremities exam: PRESENT: +2 edema Neurological exam: PRESENT: alert, awake, oriented to person, oriented to place, oriented to time, oriented to situation, CN II-XII grossly intact. ABSENT: altered Psychiatric exam: PRESENT: appropriate affect. ABSENT: agitated, anxious Results Laboratory Results: WBC 6.4 10^3/uL (4.0-10.5) 10/22/19 04:56 RBC 2.86 10^6/uL (4.35-5.55) L 10/22/19 04:56 Hgb 8.3 g/dL (13.5-17.0) L 10/22/19 04:56 Hct 25.0 % (37.9-51.0) L 10/22/19 04:56 MCV 88 fl (80-97) 10/22/19 04:56 MCH 29.1 pg (27.0-33.4) 10/22/19 04:56 MCHC 33.3 g/dL (32.0-36.0) 10/22/19 04:56 RDW 16.7 % (11.5-14.0) H 10/22/19 04:56 Plt Count 259 10^3/uL (150-450) 10/22/19 04:56 Lymph % (Auto) 18.6 % (13-45) 10/22/19 04:56 Meriwether % (Auto) 9.7 % (3-13) 10/22/19 04:56 Eos % (Auto) 7.0 % (0-6) H 10/22/19 04:56 Baso % (Auto) 1.2 % (0-2) 10/22/19 04:56 Absolute Neuts (auto) 4.0 10^3/uL (1.7-8.2) 10/22/19 04:56 Absolute Lymphs (auto) 1.2 10^3/uL (0.5-4.7) 10/22/19 04:56 Absolute Monos (auto) 0.6 10^3/uL (0.1-1.4) 10/22/19 04:56 Absolute Eos (auto) 0.4 10^3/uL (0.0-0.6) 10/22/19 04:56 Absolute Basos (auto) 0.1 10^3/uL (0.0-0.2) 10/22/19 04:56 Seg Neutrophils % 63.5 % (42-78) 10/22/19 04:56 Platelet Estimate Cancelled 10/20/19 05:08 Sodium 140.7 mmol/L (137-145) 10/23/19 05:58 Potassium 4.4 mmol/L (3.6-5.0) 10/23/19 05:58 Chloride 111 mmol/L (98-107) H 10/23/19 05:58 Carbon Dioxide 21 mmol/L (22-30) L 10/23/19 05:58 Anion Gap 9 (5-19) 10/23/19 05:58 BUN 67 mg/dL (7-20) H 10/23/19 05:58 Creatinine 5.32 mg/dL (0.52-1.25) H 10/23/19 05:58 Est GFR ( Amer) 13 (>60) L 10/23/19 05:58 Est GFR (MDRD) Non-Af 11 (>60) L 10/23/19 05:58 Glucose 96 mg/dL (75-110) 10/23/19 05:58 POC Glucose 219 mg/dL (70-110) H 10/23/19 11:24 Hemoglobin A1c % 5.4 % (4.7-6.0) 10/20/19 07:59 Lactic Acid 0.8 mmol/L (0.7-2.1) 10/19/19 09:19 Calcium 8.2 mg/dL (8.4-10.2) L 10/23/19 05:58 Phosphorus 6.2 mg/dL (2.5-4.5) H 10/23/19 05:58 Magnesium 1.8 mg/dL (1.6-2.3) 10/23/19 05:58 Total Bilirubin 0.5 mg/dL (0.2-1.3) 10/22/19 04:56 Direct Bilirubin 0.3 mg/dL (0.0-0.4) 10/22/19 04:56 Neonat Total Bilirubin Not Reportable 10/22/19 04:56 Neonat Direct Bilirubin Not Reportable 10/22/19 04:56 Neonat Indirect Bili Not Reportable 10/22/19 04:56 AST 17 U/L (17-59) 10/22/19 04:56 ALT 14 U/L (<50) 10/22/19 04:56 Alkaline Phosphatase 60 U/L (38-126) 10/22/19 04:56 Troponin I 0.026 ng/mL 10/19/19 05:00 NT-Pro-B Natriuret Pep 5680 pg/mL (<125) H 10/19/19 05:00 Total Protein 6.1 g/dL (6.3-8.2) L 10/22/19 04:56 Albumin 3.0 g/dL (3.5-5.0) L 10/23/19 05:58 Triglycerides 104 mg/dL (<150) 10/20/19 05:08 Cholesterol 189.59 mg/dL (0-200) 10/20/19 05:08 LDL Cholesterol Direct 87 mg/dL (<100) 10/20/19 05:08 VLDL Cholesterol 21.0 mg/dL (10-31) 10/20/19 05:08 HDL Cholesterol 44 mg/dL (>40) 10/20/19 05:08 Time Trough Drawn 2120 10/22/19 21:20 Vancomycin Trough 17.1 ug/mL (5.0-20.0) 10/22/19 21:20 COVID-19 Source NASOPHARYNGEAL 10/19/19 11:01 COVID-19 (DARREN) NOT DETECTED 10/19/19 11:01 Slides for Path Review Cancelled 10/20/19 05:08 10/19/19 10/19/19 05:00 05:00 Troponin I 0.026 NT-Pro-B Natriuret Pep 5680 H Impressions: Chest X-Ray 10/19/19 05:09 IMPRESSION: Extensive bilateral airspace opacities worrisome for multifocal pneumonia copyright 2011 [employer]- All Rights Reserved Plan Health Concerns: Exacerbation of heart failure with severe chronic kidney disease. Plan of Treatment: Changes in medications as above. Follow-up with Dr. King. Goals: Maximize control of heart failure as well as kidney recovery. Time Spent: Greater than 30 Minutes Stroke Is this a Stroke Patient?: No Acute Heart Failure - Is this a Heart Failure Patient?: Yes Documentation of LVEF assessment?: Yes LVEF: LVEF Less Than or Equal to 35% Anticoagulant Therapy: N/A Discharged on Evidence-Based Beta Blockers: Yes Discharged on ARNI?: No-Document Contraindications Reason(s) not discharged on ARNI: Impaired/worsening renal functions Discharged on ARB?: Yes Discharged on ACEI?: N/A Discharged on ARB For LVEF <35%, discharged on Aldosterone Antagonist?: N/A (LVEF > or = 35%) Follow-up Appointment scheduled within 7 days?: Yes
[2019-10-23 16:27] VITALS: BP 195/94
== END 2019-10-23 16:47 | disposition home or self-care (01) | DRG 291 ==
LOC: ER 04:49 → EH 09:03 → 3N 22:53 → 3W 10-20 16:25
PROVIDERS: ADMIT Internal Medicine; ATTEND Hospitalist
PROC: 5A09457 Assistance with Respiratory Ventilation, 24-96 Consecutive Hours, Continuous Positive Airway Pressure (ICD-10-PCS; principal; 2019-10-19)
DX: I13.0 Hypertensive heart and chronic kidney disease with heart failure and stage 1 through stage 4 chronic kidney disease, or unspecified chronic kidney disease (principal); J15.9 Unspecified bacterial pneumonia; J96.01 Acute respiratory failure with hypoxia; I50.43 Acute on chronic combined systolic (congestive) and diastolic (congestive) heart failure; N18.4 Chronic kidney disease, stage 4 (severe); I42.0 Dilated cardiomyopathy; E11.65 Type 2 diabetes mellitus with hyperglycemia; E11.22 Type 2 diabetes mellitus with diabetic chronic kidney disease; E78.5 Hyperlipidemia, unspecified; E11.51 Type 2 diabetes mellitus with diabetic peripheral angiopathy without gangrene; K21.9 Gastro-esophageal reflux disease without esophagitis; D63.1 Anemia in chronic kidney disease; I44.7 Left bundle-branch block, unspecified; I87.2 Venous insufficiency (chronic) (peripheral); E78.00 Pure hypercholesterolemia, unspecified; I25.5 Ischemic cardiomyopathy; E66.9 Obesity, unspecified; Z68.30 Body mass index [BMI] 30.0-30.9, adult; Z11.59 Encounter for screening for other viral diseases; Z79.82 Long term (current) use of aspirin; Z79.84 Long term (current) use of oral hypoglycemic drugs; Z79.899 Other long term (current) drug therapy; Z89.422 Acquired absence of other left toe(s)
CPT/HCPCS: 36415; 71045; 80053; 80061; 80069; 80202; 82962; 83036; 83605; 83735; 83880; 84484; 85025; 87040; 87077; 87186; 87635; 93005; 93010; 94660; 96365; 96375; 99291; C9803; J0330; J0360; J0692; J1644; J1815; J1940; J2543; J3370; J3490; J7050; J7060; S0119

== ENCOUNTER → 2019-11-30 | Outpatient (CLI) | payer MEDICARE, MEDICAID ==
[2019-11-30 09:57] LABS: ABSOLUTE BASOPHILS # (AUTO) 0.1 10^3/uL (0.0-0.2); ABSOLUTE EOSINOPHILS # (AUTO) 0.3 10^3/uL (0.0-0.6); ABSOLUTE LYMPHOCYTES (AUTO) 0.9 10^3/uL (0.5-4.7); ABSOLUTE MONOCYTES (AUTO) 0.5 10^3/uL (0.1-1.4); ABSOLUTE NEUT (AUTO) 5.4 10^3/uL (1.7-8.2); BASOPHILS % (AUTO) 1.3 % (0-2); EOSINOPHILS % (AUTO) 4.2 % (0-6); HEMATOCRIT 28.8 % (37.9-51.0); HEMOGLOBIN 9.8 g/dL (13.5-17.0); LYMPHOCYTES % (AUTO) 12.5 % (13-45); MEAN CORPUSCULAR HEMOGLOBIN 29.9 pg (27.0-33.4); MEAN CORPUSCULAR VOLUME 88 fl (80-97); MONOCYTES % (AUTO) 7.3 % (3-13); PLATELET COUNT 273 10^3/uL (150-450); RED BLOOD COUNT 3.27 10^6/uL (4.35-5.55); RED CELL DISTRIBUTION WIDTH 15.4 % (11.5-14.0); SEGMENTED NEUTROPHILS % (AUTO) 74.7 % (42-78); TOTAL CELLS COUNTED % (AUTO) 100 %; WHITE BLOOD COUNT 7.3 10^3/uL (4.0-10.5)
[2019-11-30 10:27] LABS: ANION GAP 13 (5-19); BLOOD UREA NITROGEN 55 mg/dL (7-20); CALCIUM 8.4 mg/dL (8.4-10.2); CARBON DIOXIDE 19 mmol/L (22-30); CHLORIDE 109 mmol/L (98-107); GLUCOSE 61 mg/dL (75-110); POTASSIUM 4.4 mmol/L (3.6-5.0)
== END ==
LOC: OD 08:45
PROVIDERS: ATTEND Family Medicine Geriatric Medicine
DX: D64.9 Anemia, unspecified (principal); I10 Essential (primary) hypertension; Z79.899 Other long term (current) drug therapy
CPT/HCPCS: 36415; 80048; 85025

== ENCOUNTER → 2019-12-07 | Outpatient (CLI) | payer MEDICARE, MEDICAID ==
[2019-12-07 10:18] LABS: ABSOLUTE BASOPHILS # (AUTO) 0.1 10^3/uL (0.0-0.2); ABSOLUTE EOSINOPHILS # (AUTO) 0.3 10^3/uL (0.0-0.6); ABSOLUTE LYMPHOCYTES (AUTO) 0.9 10^3/uL (0.5-4.7); ABSOLUTE MONOCYTES (AUTO) 0.3 10^3/uL (0.1-1.4); ABSOLUTE NEUT (AUTO) 3.3 10^3/uL (1.7-8.2); BASOPHILS % (AUTO) 1.3 % (0-2); EOSINOPHILS % (AUTO) 6.1 % (0-6); HEMATOCRIT 29.6 % (37.9-51.0); LYMPHOCYTES % (AUTO) 19.1 % (13-45); MEAN CORPUSCULAR HEMOGLOBIN 29.7 pg (27.0-33.4); MEAN CORPUSCULAR HGB CONC 33.8 g/dL (32.0-36.0); MEAN CORPUSCULAR VOLUME 88 fl (80-97); PLATELET COUNT 242 10^3/uL (150-450); RED BLOOD COUNT 3.37 10^6/uL (4.35-5.55); SEGMENTED NEUTROPHILS % (AUTO) 67.5 % (42-78); TOTAL CELLS COUNTED % (AUTO) 100 %; WHITE BLOOD COUNT 4.9 10^3/uL (4.0-10.5)
[2019-12-07 10:19] LABS: APPEARANCE,URINE CLEAR; BILIRUBIN,URINE NEGATIVE (NEGATIVE); COLOR,URINE YELLOW; GLUCOSE, URINE 50 mg/dL (NEGATIVE); KETONES,URINE NEGATIVE (NEGATIVE); LEUKOCYTE ESTERASE,URINE NEGATIVE (NEGATIVE); NITRITE,URINE NEGATIVE (NEGATIVE); PROTEIN,URINE >=500 mg/dL (NEGATIVE); URINE SPECIFIC GRAVITY 1.015; UROBILINOGEN,URINE NEGATIVE mg/dL (<2.0)
[2019-12-07 10:34] LABS: ALBUMIN 3.1 g/dL (3.5-5.0); ANION GAP 10 (5-19); BLOOD UREA NITROGEN 59 mg/dL (7-20); CALCIUM 8.1 mg/dL (8.4-10.2); CARBON DIOXIDE 21 mmol/L (22-30); CHLORIDE 110 mmol/L (98-107); GLUCOSE 92 mg/dL (75-110); IRON(TIBC) 45.7 ug/dL (49-181); PHOSPHORUS 5.9 mg/dL (2.5-4.5); POTASSIUM 4.6 mmol/L (3.6-5.0)
[2019-12-07 10:45] LABS: URINE CREATININE 81.7 mg/dL (22-328)
[2019-12-07 13:32] LABS: UR PRO/CREAT RATIO RESULT 10.2 mg/mg (0.0-0.2); URINE PROTEIN 834.9 mg/dL (<12)
== END ==
LOC: OD 09:39
PROVIDERS: ATTEND Internal Medicine Nephrology
DX: N18.4 Chronic kidney disease, stage 4 (severe) (principal); D63.1 Anemia in chronic kidney disease
CPT/HCPCS: 36415; 80069; 81001; 82306; 82570; 83540; 83550; 83970; 84156; 85025

== ENCOUNTER 2019-12-20 02:45 | Inpatient (IN) | payer MEDICARE, MEDICAID ==
[2019-12-20] MEDS ORDERED: NITROGLYCERIN/D5W 50 MG/250 ML RTUINJ IV PRN (02:50)
[2019-12-20] MEDS ORDERED: FUROSEMIDE INJ/PF 100 MG/10 ML SDV IV ONE (02:53)
[2019-12-20 03:02] LABS: ABSOLUTE BASOPHILS # (AUTO) 0.1 10^3/uL (0.0-0.2); ABSOLUTE EOSINOPHILS # (AUTO) 0.4 10^3/uL (0.0-0.6); ABSOLUTE LYMPHOCYTES (AUTO) 2.4 10^3/uL (0.5-4.7); ABSOLUTE MONOCYTES (AUTO) 0.4 10^3/uL (0.1-1.4); ABSOLUTE NEUT (AUTO) 5.2 10^3/uL (1.7-8.2); EOSINOPHILS % (AUTO) 4.3 % (0-6); HEMATOCRIT 32.6 % (37.9-51.0); LYMPHOCYTES % (AUTO) 28.5 % (13-45); MEAN CORPUSCULAR HEMOGLOBIN 30.6 pg (27.0-33.4); MEAN CORPUSCULAR HGB CONC 33.6 g/dL (32.0-36.0); MEAN CORPUSCULAR VOLUME 91 fl (80-97); MONOCYTES % (AUTO) 4.8 % (3-13); PLATELET COUNT 428 10^3/uL (150-450); RED BLOOD COUNT 3.59 10^6/uL (4.35-5.55); RED CELL DISTRIBUTION WIDTH 15.2 % (11.5-14.0); SEGMENTED NEUTROPHILS % (AUTO) 61.4 % (42-78); TOTAL CELLS COUNTED % (AUTO) 100 %; WHITE BLOOD COUNT 8.5 10^3/uL (4.0-10.5)
[2019-12-20 03:25] LABS: ARTERIAL BLOOD H2CO3 1.24 mmol/L (1.05-1.35); ARTERIAL BLOOD HCO3 12.3 mmol/L (20-24); ARTERIAL BLOOD O2 SATURATION 93.6 % (94-98); ARTERIAL BLOOD PCO2 41.3 mmHg (35-45); ARTERIAL BLOOD PO2 90.5 mmHg (80-100); ARTERIAL BLOOD TOTAL CO2 13.6 mmol/L (23-27)
[2019-12-20 03:27] LABS: ARTERIAL BLOOD FIO2 100%; ARTERIAL BLOOD PH 7.09 (7.35-7.45)
[2019-12-20 03:29] LABS: ALBUMIN 3.5 g/dL (3.5-5.0); ALKALINE PHOSPHATASE 116 U/L (38-126); ANION GAP 18 (5-19); ASPARTATE AMINO TRANSFERASE 21 U/L (17-59); BILIRUBIN,DIRECT 0.3 mg/dL (0.0-0.4); BILIRUBIN,TOTAL 0.7 mg/dL (0.2-1.3); BLOOD UREA NITROGEN 45 mg/dL (7-20); CALCIUM 8.7 mg/dL (8.4-10.2); CARBON DIOXIDE 12 mmol/L (22-30); CHLORIDE 109 mmol/L (98-107); GLUCOSE 225 mg/dL (75-110); POTASSIUM 4.4 mmol/L (3.6-5.0); TOTAL PROTEIN 6.9 g/dL (6.3-8.2)
[2019-12-20] MEDS ORDERED: NICARDIPINE HCL RTU, ISO-OS 20 MG/200 ML RTUINJ IV PRN (03:37)
[2019-12-20 03:43] LABS: TROPONIN I 0.048 ng/mL
--- NOTE | 2019-12-20 03:48 | ER Document Report ---
ED General - General Stated Complaint: DIFFICULTY BREATHING Time Seen by Provider: 12/20/19 02:50 Notes: 59-year-old male with history of heart failure, CKD presents with respiratory failure. Patient resting to ED without ability to give any history in severe respiratory distress. Patient hypoxic with extremely labored breathing on arrival. History limited by patient acuity. TRAVEL OUTSIDE OF THE [place] IN LAST 30 DAYS: No - Related Data Allergies/Adverse Reactions: No Known Allergies Allergy (Verified 06/10/18 17:31) Past Medical History - General Information source: REPLACED BY [facility] Records - Social History Smoking Status: Former Smoker Chew tobacco use (# tins/day): No Frequency of alcohol use: None Drug Abuse: None Family History: Reviewed & Not Pertinent, CAD, Hypertension, Malignancy - Past Medical History Cardiac Medical History: Reports: Hx Congestive Heart Failure - Chronic combined systolic and diastolic congestive heart failure, Hx Hypercholesterolemia, Hx Hypertension, Hx Peripheral Vascular Disease Denies: Hx Atrial Fibrillation, Hx Coronary Artery Disease, Hx DVT, Hx Heart Attack, Hx Pulmonary Embolism Pulmonary Medical History: Reports: Hx Pneumonia, Hx Respiratory Failure Denies: Hx Asthma, Hx Bronchitis, Hx COPD, Hx Tuberculosis Neurological Medical History: Denies: Hx Seizures, Hx Parkinson's Disease Endocrine Medical History: Reports: Hx Diabetes Mellitus Type 2. Denies: Hx Diabetes Mellitus Type 1, Hx Hyperthyroidism, Hx Hypothyroidism Renal/ Medical History: Denies: Hx Benign Prostatic Hyperplasia, Hx End Stage Renal Disease, Hx Kidney Stones, Hx Peritoneal Dialysis GI Medical History: Reports: Hx Gastroesophageal Reflux Disease. 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 EYES: Pupils equal round and appropriate constriction, sclera anicteric, conjunctiva are normal. ENT: nares patent, moist mucous membranes. NECK: Normal range of motion, supple without lymphadenopathy, +JVD LUNGS: Diffuse coarse breath sounds, no wheezing, good air movement, severely labored breathing with accessory muscle use, inability to speak secondary to dyspnea HEART: Tachycardic, unable to assess murmurs secondary to loud coarse breath sounds ABDOMEN: Soft, nontender, no guarding, no masses, healed laparotomy incision EXTREMITIES: Bilateral symmetric pitting edema in lower extremities NEUROLOGICAL: Awake, unable to converse secondary to dyspnea, moving all extremities spontaneously SKIN: Warm, Dry Course - Re-evaluation Re-evalutation: 12/20/19 03:48 Respiratory failure consistent with likely flash pulmonary edema given diffuse rales, JVD, and bilateral lower extremity edema. Trial of BiPAP patient's work of breathing was stable to labored so intubated. 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 Patient had episode of desaturation after intubation which resolved after removing vent and ventilating patient with BVM. Pending repeat chest x-ray. Patient accepted to ICU. 12/20/19 06:11 Patient has remained hemodynamically stable on ventilator, titrated down nicardipine, airway has been stable, [facility] patient's care [facility]. Patient being transported to ICU shortly. - Vital Signs Vital signs: Temp Pulse Resp BP Pulse Ox 100.8 F H 115 H 22 H 164/87 H 100 12/21/19 22:00 12/21/19 20:00 12/21/19 22:00 12/21/19 21:29 12/21/19 22:00 - Laboratory Result Diagrams: 12/21/19 07:10 12/21/19 04:25 Laboratory results interpreted by me: 12/20/19 12/20/1912/19/20 02:45 02:45 02:45 RBC 3.59 L Hgb 11.0 L Hct 32.6 L RDW 15.2 H ABG pH ABG HCO3 ABG Total CO2 ABG O2 Saturation Chloride 109 H Carbon Dioxide 12 L BUN 45 H Creatinine 5.54 H Est GFR ( Amer) 13 L Est GFR (MDRD) Non-Af 11 L Glucose 225 H POC Glucose NT-Pro-B Natriuret Pep 92476 H 12/20/19 12/20/19 02:45 02:56 RBC Hgb Hct RDW ABG pH 7.09 L* ABG HCO3 12.3 L ABG Total CO2 13.6 L ABG O2 Saturation 93.6 L Chloride Carbon Dioxide BUN Creatinine Est GFR ( Amer) Est GFR (MDRD) Non-Af Glucose POC Glucose 246 H NT-Pro-B Natriuret Pep - EKG Interpretation by Me Additional EKG results interpreted by me: 12/20/19 06:14 Sinus tachycardia, ST depressions most pronounced in lateral and inferior leads, no significant ST elevations, QTc 487 Critical Care Note - Critical Care Note Total time excluding time spent on procedures (mins): 75 - Time spent stabilizing critically ill patient, securing airway, stabilizing pt on ventilator, titrating IV blood pressure medications, communicating with family and specialist Discharge - Discharge Clinical Impression: Respiratory failure Qualifiers: Chronicity: acute Respiratory failure complication: hypoxia Qualified Code(s): J96.01 - Acute respiratory failure with hypoxia Condition: Critical Disposition: ADMITTED INPATIENT Admitting Provider: [facility] Admitted: ICU
[2019-12-20] MEDS: PROPOFOL 1,000 MG/100 ML INFUS..BTL IV PRN ×4 (03:51→19:30)
--- NOTE | 2019-12-20 05:07 | Operative Report ---
Bedside Procedure - History of Present Illness Indication for Procedure: acute hypoxemic respiratory failure Date: 12/20/19 Provider: PARESH FRANCOIS - Intubation Orotracheal Time of Intubation: 03:23 Airway evaluation: Normal anatomy, Neck immobility, Obese Mallampati Classification: Class 1 Intubation method: Orotracheal Blade type: Safia, Other - glidescope Blade size: 3 Equipment used: Glidescope ETT size: 7.5 ETT secured at: Teeth ETT secured at (cm): 23 Post Intubation Xray: Yes Intubation Complications: No complications
--- NOTE | 2019-12-20 05:18 | RADIOLOGY REPORT (SQ) ---
EXAM DESCRIPTION: XR CHEST 1 VIEW COMPLETED DATE/TME: 12/20/2019 00:00 CLINICAL HISTORY: 59 years, Male, TUBE PLACEMENT COMPARISON: 10/19/2019 NUMBER OF VIEWS: One TECHNIQUE: AP view the chest LIMITATIONS: None. FINDINGS: There is diffuse airspace disease, worse compared to the prior exam. Heart is enlarged. No pneumothorax.. Overlying tubing courses along the mediastinum and lower left chest. Bones are unremarkable. IMPRESSION: Diffuse airspace disease which may represent pulmonary edema and/or pneumonia. copyright 2010 [employer]- All Rights Reserved
[2019-12-20 06:46] LABS: VENOUS BLOOD BASE EXCESS -9.2 mmol/L; VENOUS BLOOD HCO3 17.2 mmol/L (20-32); VENOUS BLOOD PCO2 39.2 mmHg (35-63); VENOUS BLOOD PH 7.26 (7.30-7.42)
--- NOTE | 2019-12-20 06:49 | CRITICAL CARE ADMISSION REPORT ---
HPI Date:: 12/20/19 Time:: 06:31 Reason for ICU Reason:: Acute hypoxemic respiratory failure Admission Date/Time & PCP: Admission Date/Time: 12/20/19 04:17 Primary Care Provider: JADIEL SHARPE MD HPI: Mr. Johnathon Garay is a 59-year-old -[place] gentleman with a past medical history of CHF, and CKD. Presented to the ED with severe respiratory distress. He was placed on BiPAP with FiO2 100% ABG ABG revealed a pH of 7.09 PCO2 41.3 PaO2 90.5. He had a BN P 10,400 BUN 45 creatinine 5.54. He failed BiPAP and subsequently was intubated and admitted to the ICU for further management. - Diagnosis/Plan (1) Acute hypoxemic respiratory failure Is this a current diagnosis for this admission?: Yes Plan: Maintain on mechanical ventilation. Repeat ABG Chest x-ray shows severe pulmonary edema 100 mg IV Lasix given in the ER Daily chest x-ray Continue to diurese (2) Acute kidney injury superimposed on chronic kidney disease Is this a current diagnosis for this admission?: Yes Plan: Creatinine 5.54 we will consult nephrology. Diurese for volume overload. (3) Acute pulmonary edema with congestive heart failure Is this a current diagnosis for this admission?: Yes Plan: Continue diuresis. Will need echo. Past Medical History Cardiac Medical History: Reports: Congestive Heart Failure - Chronic combined systolic and diastolic congestive heart failure, Hyperlipidema, Hypertension, Peripheral Vascular Disease Denies: Atrial Fibrillation, Coronary Artery Disease, DVT, Myocardial Infarction, Pulmonary Embolism Pulmonary Medical History: Reports: Pneumonia, Respiratory Failure Denies: Asthma, Bronchitis, Chronic Obstructive Pulmonary Disease (COPD), Tuberculosis Neurological Medical History: Denies: Seizures Endocrine Medical History: Reports: Diabetes Mellitus Type 2 Denies: Diabetes Mellitus Type 1, Hyperthyroidism, Hypothyroidism Renal/ Medical History: Denies: End Stage Renal Disease GI Medical History: Reports: Gastroesophageal Reflux Disease Denies: Cirrhosis, Crohn's Disease, Hepatitis, Ulcerative Colitis Musculoskeltal Medical History: Reports: Arthritis Denies: Gout Skin Medical History: Denies: Eczema, Psoriasis Psychiatric Medical History: Denies: Bipolar Disorder, Depression Hematology: Reports: Anemia - Chronic anemia due to chronic kidney disease Denies: Bleeding Tendencies Past Surgical History Past Surgical History: Reports: Orthopedic Surgery - 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 Social/Family History - Social History Smoking Status: Former Smoker Frequency of Alcohol Use: Heavy Hx Recreational Drug Use: No Drugs: None Hx Prescription Drug Abuse: No - Medication/Allergies Home Medications: Aspirin [Ecotrin 81 mg EC Tablet] 81 mg PO DAILY 12/12/18 Melatonin [Melatonin 3 mg Tablet] 6 mg PO QHS #60 tablet 06/08/19 Glipizide [Glipizide Xl] 10 mg PO DAILY 06/16/19 Isosorbide Mononitrate [Imdur 60 mg Tablet.er] 60 mg PO DAILY #30 tab.er.24h 06/27/19 Atorvastatin Calcium [Lipitor 40 mg Tablet] 40 mg PO QHS #30 tablet 10/23/19 Carvedilol 25 mg PO Q12 #60 tablet 10/23/19 Docusate Sodium [Colace 100 mg Capsule] 100 mg PO DAILY capsule 10/23/19 Doxycycline Hyclate [Vibramycin 100 mg Tablet] 100 mg PO BID 7 Days #14 tablet 10/23/19 Furosemide [Lasix 40 mg Tablet] 40 mg PO BID 30 Days #60 tablet 10/23/19 Hydralazine HCl [Apresoline 25 mg Tablet] 25 mg PO Q8 #90 tablet 10/23/19 Valsartan [Diovan 160 mg Tablet] 160 mg PO Q12 #60 tablet 10/23/19 Allergies/Adverse Reactions: No Known Allergies Allergy (Verified 06/10/18 17:31) Review of Systems ROS unobtainable: Due to endotracheal tube Physical Exam Vital Signs: Temp Pulse Resp BP Pulse Ox 96.1 F L 23 H 94/66 L 100 12/20/19 06:01 12/20/19 06:01 12/20/19 06:01 12/20/19 06:01 Intake & Output 12/18/19 12/19/19 12/20/19 06:59 06:59 06:59 Intake Total 179 Balance 179 Weight 114.5 kg Weight/Height Weight 114.5 kg Height 6 ft General appearance: PRESENT: severe distress Head exam: PRESENT: atraumatic Eye exam: PRESENT: PERRLA Mouth exam: PRESENT: moist Neck exam: PRESENT: JVD Respiratory exam: PRESENT: rales Cardiovascular exam: PRESENT: +S1, +S2, tachycardia Pulses: PRESENT: normal radial pulses GI/Abdominal exam: PRESENT: normal bowel sounds Gentrourinary exam: PRESENT: indwelling catheter Extremities exam: PRESENT: other - +3 edema BLE Neurological exam: PRESENT: other - Sedated Psychiatric exam: PRESENT: other - Sedated Tubes/Lines: PRESENT: Endotracheal Tube Laboratory/Radiographs Laboratory Results: 12/20/19 02:45 12/20/19 02:45 12/20/19 12/20/19 12/20/19 02:45 02:45 02:45 WBC 8.5 RBC 3.59 L Hgb 11.0 L Hct 32.6 L MCV 91 MCH 30.6 MCHC 33.6 RDW 15.2 H Plt Count 428 Seg Neutrophils % 61.4 Carbonic Acid 1.24 HCO3/H2CO3 Ratio 9:1 ABG pH 7.09 L* ABG pCO2 41.3 ABG pO2 90.5 ABG HCO3 12.3 L ABG O2 Saturation 93.6 L ABG Base Excess -17.0 FiO2 100% Sodium 138.8 Potassium 4.4 Chloride 109 H Carbon Dioxide 12 L Anion Gap 18 BUN 45 H Creatinine 5.54 H Est GFR ( Amer) 13 L Glucose 225 H Calcium 8.7 Total Bilirubin 0.7 AST 21 Alkaline Phosphatase 116 Total Protein 6.9 Albumin 3.5 12/20/19 02:45 Troponin I 0.048 NT-Pro-B Natriuret Pep 71176 H Impressions: Chest X-Ray 12/20/19 00:00 IMPRESSION: Diffuse airspace disease which may represent pulmonary edema and/or pneumonia. copyright 2011 [employer]- All Rights Reserved All labs, radiographs, diagnostic studies and EKGs were personally reviewed: Yes In addition, reports of radiographic and diagnostic studies were read: Yes Critical Time Critical Time (minutes): 70 -: The care of a critically ill patient is dynamic. This note represents a static moment in the admission process. Orders and treatments may be given simultaneously and urgently, and time is not fuels sales representative of the treatment process. This patient requires Critical Care secondary to life threatening organ or limb dysfunction. Without Critical Care services, the patient is at risk for increased mortality and morbidity.
[2019-12-20 08:11] LABS: ARTERIAL BLOOD BASE EXCESS -6.6 mmol/L; ARTERIAL BLOOD H2CO3 1.02 mmol/L (1.05-1.35); ARTERIAL BLOOD HCO3 18.3 mmol/L (20-24); ARTERIAL BLOOD O2 SATURATION 99.6 % (94-98); ARTERIAL BLOOD PCO2 33.9 mmHg (35-45); ARTERIAL BLOOD PH 7.35 (7.35-7.45); ARTERIAL BLOOD TOTAL CO2 19.3 mmol/L (23-27)
[2019-12-20 08:12] LABS: ARTERIAL BLOOD FIO2 90%
[2019-12-20] MEDS: HEPARIN SOD (PORCINE) 5,000 UNIT/ML 1 ML VIAL SUBCUT SCH ×3 (08:21→21:48)
[2019-12-20] MEDS: MORPHINE SULFATE 10 MG/ML INJ IV SCH ×4 (09:06→21:49)
[2019-12-20] MEDS ORDERED: ROCURONIUM BROMIDE INJ 50 MG/5 ML VIAL IV ONE (11:58)
[2019-12-20] MEDS ORDERED: ETOMIDATE INJ/PF 20 MG/10 ML SDV IV ONE (11:58)
[2019-12-20 12:15] LABS: ARTERIAL BLOOD BASE EXCESS -5.2 mmol/L; ARTERIAL BLOOD H2CO3 0.98 mmol/L (1.05-1.35); ARTERIAL BLOOD HCO3 19.2 mmol/L (20-24); ARTERIAL BLOOD O2 SATURATION 99.1 % (94-98); ARTERIAL BLOOD PCO2 32.7 mmHg (35-45); ARTERIAL BLOOD PH 7.39 (7.35-7.45); ARTERIAL BLOOD PO2 169.5 mmHg (80-100); ARTERIAL BLOOD TOTAL CO2 20.2 mmol/L (23-27)
[2019-12-20 12:16] LABS: ARTERIAL BLOOD FIO2 60%
[2019-12-20 14:34] LABS: POTASSIUM 4.9 mmol/L (3.6-5.0)
[2019-12-20] MEDS ORDERED: ALBUTEROL SULFATE 0.083% NEB 2.5 MG/3 ML AMPUL NEB PRN (16:35)
[2019-12-20 16:39] LABS: ANION GAP 7 (5-19); BLOOD UREA NITROGEN 50 mg/dL (7-20); CALCIUM 7.9 mg/dL (8.4-10.2); CARBON DIOXIDE 19 mmol/L (22-30); CHLORIDE 110 mmol/L (98-107); GLUCOSE 92 mg/dL (75-110)
[2019-12-20] MEDS ORDERED: PANTOPRAZOLE SODIUM 40 MG VIAL IV ONE (17:15)
[2019-12-20] MEDS ORDERED: FUROSEMIDE INJ/PF 40 MG/4 ML SDV IV SCH (18:15)
[2019-12-20] MEDS ORDERED: DEXTROSE 50%-WATER 25 GM/50 ML DISP.SYRIN IV PRN ×2 (18:25)
[2019-12-20] MEDS ORDERED: DEXTROSE 40% GEL 15 GM TUBE PO PRN ×2 (18:25)
[2019-12-20] MEDS ORDERED: GLUCAGON,HUMAN RECOMB 1 MG INJ IM PRN (18:25)
[2019-12-20] MEDS: MAGNESIUM SULFATE/D5W 1 GM/100 ML RTUPB IV SCH ×2 (18:52→19:50)
[2019-12-20] MEDS: INSULIN REG, HUMAN 100 UNIT/ML 3 ML VIAL (PYX) SUBCUT SCH (19:01)
--- NOTE | 2019-12-20 19:19 | EKG REPORT ---
SEVERITY:- ABNORMAL ECG - SINUS TACHYCARDIA IVCD VENTRICULAR PREMATURE COMPLEX PROBABLE LVH WITH SECONDARY REPOL ABNRM ST DEPRESSION, CONSIDER ISCHEMIA, ANT-LAT LDS BORDERLINE PROLONGED QT INTERVAL : Confirmed by: Sahquille Campos MD 20-Dec-2019 19:18:28
[2019-12-20] MEDS ORDERED: BUMETANIDE INJ/PF 1 MG/4 ML SDV IV ONE (22:15)
--- NOTE | 2019-12-21 00:16 | EKG REPORT ---
SEVERITY:- ABNORMAL ECG - SINUS RHYTHM PROBABLE LEFT ATRIAL ABNORMALITY LVH WITH SECONDARY REPOLARIZATION ABNORMALITY PROLONGED QT INTERVAL : Confirmed by: Shaquille Campos MD 21-Dec-2019 00:15:50
[2019-12-21] MEDS ORDERED: BUMETANIDE INJ/PF 1 MG/4 ML SDV IV ONE (01:00)
[2019-12-21] MEDS: MORPHINE SULFATE 10 MG/ML INJ IV SCH ×5 (02:20→21:18)
[2019-12-21] MEDS: INSULIN REG, HUMAN 100 UNIT/ML 3 ML VIAL (PYX) SUBCUT SCH ×5 (02:23→23:41)
[2019-12-21 05:12] LABS: ANION GAP 8 (5-19); BLOOD UREA NITROGEN 54 mg/dL (7-20); CARBON DIOXIDE 18 mmol/L (22-30); CHLORIDE 110 mmol/L (98-107); GLUCOSE 85 mg/dL (75-110); PHOSPHORUS 6.4 mg/dL (2.5-4.5); POTASSIUM 4.5 mmol/L (3.6-5.0)
--- NOTE | 2019-12-21 05:52 | RADIOLOGY REPORT (SQ) ---
CLINICAL HISTORY: ETT tube COMPARISON: 12/20/2019. TECHNIQUE: XR CHEST 1 VIEW 12/21/2019 5:00 AM CDT FINDINGS: The heart is enlarged. There are moderate consolidations in the perihilar and bibasilar regions. There may be small pleural effusions. There is no pneumothorax. There are no acute osseous findings. Endotracheal tube tip is in the midtrachea. NG tube tip is in the stomach. IMPRESSION: Endotracheal tube in appropriate position.
[2019-12-21 06:13] LABS: ARTERIAL BLOOD BASE EXCESS -5.7 mmol/L; ARTERIAL BLOOD H2CO3 1.21 mmol/L (1.05-1.35); ARTERIAL BLOOD O2 SATURATION 89.5 % (94-98); ARTERIAL BLOOD PCO2 40.2 mmHg (35-45); ARTERIAL BLOOD PH 7.32 (7.35-7.45); ARTERIAL BLOOD TOTAL CO2 21.2 mmol/L (23-27)
[2019-12-21 06:19] LABS: ARTERIAL BLOOD FIO2 30%
[2019-12-21 07:17] LABS: ABSOLUTE BASOPHILS # (AUTO) 0.1 10^3/uL (0.0-0.2); ABSOLUTE EOSINOPHILS # (AUTO) 0.2 10^3/uL (0.0-0.6); ABSOLUTE LYMPHOCYTES (AUTO) 1.2 10^3/uL (0.5-4.7); ABSOLUTE MONOCYTES (AUTO) 0.4 10^3/uL (0.1-1.4); ABSOLUTE NEUT (AUTO) 4.3 10^3/uL (1.7-8.2); BASOPHILS % (AUTO) 0.9 % (0-2); EOSINOPHILS % (AUTO) 3.6 % (0-6); LYMPHOCYTES % (AUTO) 19.5 % (13-45); MEAN CORPUSCULAR HGB CONC 34.4 g/dL (32.0-36.0); MONOCYTES % (AUTO) 6.1 % (3-13); PLATELET COUNT 223 10^3/uL (150-450); RED BLOOD COUNT 2.63 10^6/uL (4.35-5.55); RED CELL DISTRIBUTION WIDTH 14.7 % (11.5-14.0); SEGMENTED NEUTROPHILS % (AUTO) 69.9 % (42-78); TOTAL CELLS COUNTED % (AUTO) 100 %; WHITE BLOOD COUNT 6.2 10^3/uL (4.0-10.5)
[2019-12-21] MEDS ORDERED: PROPOFOL 1,000 MG/100 ML INFUS..BTL IV PRN (07:37)
[2019-12-21 07:44] LABS: MEAN CORPUSCULAR VOLUME 87 fl (80-97)
[2019-12-21] MEDS: PROPOFOL 1,000 MG/100 ML INFUS..BTL IV PRN (07:45)
[2019-12-21 07:46] LABS: HEMOGLOBIN 7.9 g/dL (13.5-17.0)
[2019-12-21] MEDS ORDERED: (PENDING PHARMACY ID) (Nifedipine [Nifedipine Er] 90 MG) PO SCH (08:00)
[2019-12-21] MEDS: HEPARIN SOD (PORCINE) 5,000 UNIT/ML 1 ML VIAL SUBCUT SCH ×3 (08:04→21:52)
[2019-12-21] MEDS: ISOSORBIDE MONONITRATE 60 MG TAB.ER.24H PO SCH (08:05)
[2019-12-21] MEDS ORDERED: HEPARIN SOD (PORCINE) 1,000 UNIT/ML 10 ML VIAL IV PRN (09:24)
[2019-12-21] MEDS ORDERED: NORMAL SALINE 1000 ML 1,000 ML IV PRN (09:24)
[2019-12-21] MEDS ORDERED: EPOETIN ALFA-EPBX 2,000 UNIT, EPOETIN ALFA-EPBX 3,000 UNIT, EPOETIN ALFA-EPBX 20,000 UN... IV PRN ×4 (09:24)
[2019-12-21] MEDS: NIFEDIPINE 30 MG TAB.ER.24 PO SCH (09:37)
[2019-12-21] MEDS: BUMETANIDE INJ/PF 1 MG/4 ML SDV IV SCH ×2 (09:45→21:52)
[2019-12-21] MEDS: CARVEDILOL 12.5 MG TABLET PO SCH ×2 (09:50→21:35)
[2019-12-21] MEDS: VALSARTAN 160 MG TABLET PO SCH ×2 (09:53→21:35)
[2019-12-21] MEDS: PANTOPRAZOLE SODIUM 40 MG VIAL IV SCH (09:55)
[2019-12-21] MEDS ORDERED: ASPIRIN 81 MG TABLET, ENT COATED PO SCH (10:00)
[2019-12-21] MEDS ORDERED: (PENDING PHARMACY ID) (Carvedilol [Carvedilol] 25 MG) PO SCH (10:00)
[2019-12-21 10:15] LABS: ABSOLUTE RETICS # 0.028 10^6/uL (0.028-0.122); RETICULOCYTE COUNT (AUTO) 1.09 % (0.66-2.85)
--- NOTE | 2019-12-21 10:58 | PDOC CRITICAL CARE PROG REPORT ---
General Date:: 12/21/19 ICU Day:: 2 Ventilator Day:: 2 Hospital Day:: 2 Resuscitation Status: Full Code Events in the past 12 to 24 Hours:: HD catheter placed to start dialysis today. Review of systems relevant to events:: Pulmonary, cardiac, renal. Reason for ICU Addmission:: Acute hypoxemic respiratory failure from CHF and renal failure. CKD 4-5 - Medications: Medications reviewed and adjusted accordingly: Yes Vasopressors:: None Sedation:: Diprivan. Physical Exam Vital Signs: Temp Pulse Resp BP Pulse Ox 97.0 F 61 16 125/74 94 12/21/19 08:48 12/21/19 08:13 12/21/19 10:03 12/21/19 10:03 12/21/19 10:03 Intake & Output 12/20/19 12/21/19 12/22/19 06:59 06:59 06:59 Intake Total 191 559 Output Total 1005 280 Balance 191 -446 -280 Weight 114.5 kg 115.5 kg Weight/Height Weight 115.5 kg Height 6 ft General appearance: PRESENT: no acute distress Head exam: PRESENT: atraumatic, normocephalic Ear exam: PRESENT: normal external ear exam Mouth exam: PRESENT: moist, tongue midline Respiratory exam: PRESENT: clear to auscultation liseth, decreased breath sounds. ABSENT: rales, rhonchi, wheezes Cardiovascular exam: PRESENT: RRR. ABSENT: diastolic murmur, rubs, systolic murmur GI/Abdominal exam: PRESENT: normal bowel sounds, soft. ABSENT: distended, guarding, mass, organolmegaly, rebound, tenderness Gentrourinary exam: PRESENT: indwelling catheter Extremities exam: PRESENT: full ROM. ABSENT: calf tenderness, clubbing, pedal edema Musculoskeletal exam: PRESENT: normal inspection Neurological exam: PRESENT: CN II-XII grossly intact, other - Sedated Skin exam: PRESENT: dry, intact, warm. ABSENT: cyanosis, rash Tubes/Lines: PRESENT: Endotracheal Tube, Dialysis catheter, Nasogastic Tube Laboratory/Radiographs Laboratory Results: 12/21/19 07:10 12/21/19 04:25 12/20/19 12/20/19 12/20/19 12:00 13:59 16:11 WBC RBC Hgb Hct MCV MCH MCHC RDW Plt Count Seg Neutrophils % Retic Count (auto) Carbonic Acid 0.98 L HCO3/H2CO3 Ratio 19:1 ABG pH 7.39 ABG pCO2 32.7 L ABG pO2 169.5 H ABG HCO3 19.2 L ABG O2 Saturation 99.1 H ABG Base Excess -5.2 FiO2 60% Sodium 136.0 L Potassium 4.9 5.0 Chloride 110 H Carbon Dioxide 19 L Anion Gap 7 BUN 50 H Creatinine 5.99 H Est GFR ( Amer) 12 L Glucose 92 Calcium 7.9 L Phosphorus Magnesium 1.7 12/21/19 12/21/19 12/21/19 04:25 04:25 05:30 WBC Cancelled RBC Cancelled Hgb Cancelled Hct Cancelled MCV Cancelled MCH Cancelled MCHC Cancelled RDW Cancelled Plt Count Cancelled Seg Neutrophils % Cancelled Retic Count (auto) Carbonic Acid 1.21 HCO3/H2CO3 Ratio 16:1 ABG pH 7.32 L ABG pCO2 40.2 ABG pO2 61.0 L ABG HCO3 20.0 ABG O2 Saturation 89.5 L ABG Base Excess -5.7 FiO2 30% Sodium 135.9 L Potassium 4.5 Chloride 110 H Carbon Dioxide 18 L Anion Gap 8 BUN 54 H Creatinine 6.43 H Est GFR ( Amer) 11 L Glucose 85 Calcium 8.0 L Phosphorus 6.4 H Magnesium 2.2 12/21/19 12/21/19 07:10 07:10 WBC 6.2 RBC 2.63 L Hgb 7.9 L D Hct 23.0 L MCV 87 D MCH 30.0 MCHC 34.4 RDW 14.7 H Plt Count 223 Seg Neutrophils % 69.9 Retic Count (auto) 1.09 Carbonic Acid HCO3/H2CO3 Ratio ABG pH ABG pCO2 ABG pO2 ABG HCO3 ABG O2 Saturation ABG Base Excess FiO2 Sodium Potassium Chloride Carbon Dioxide Anion Gap BUN Creatinine Est GFR ( Amer) Glucose Calcium Phosphorus Magnesium 12/20/19 12/20/19 12/21/19 02:45 16:11 04:25 Troponin I 0.048 NT-Pro-B Natriuret Pep 79298 H 63353 H 52162 H Impressions: Chest X-Ray 12/21/19 05:00 IMPRESSION: Endotracheal tube in appropriate position. All labs, radiographs, diagnostic studies and EKGs were personally reviewed: Yes In addition, reports of radiographic and diagnostic studies were read: Yes Assessment and Plan - Diagnosis (1) Acute on chronic combined systolic and diastolic congestive heart failure Is this a current diagnosis for this admission?: Yes Plan: Echocardiogram on 05/15/19 shows and EF of 45% with St 1 diastolic dysfunction. He was volume overloaded putting him into pulmonary edema. (2) Chronic kidney disease, stage IV (severe) Is this a current diagnosis for this admission?: Yes Plan: He is now progressing to stage 5. A dialysis catherte is in his R femoral vein. To start dialysis today. He was both volume overloaded and acidotic. (3) Diabetes mellitus type 2 in obese Is this a current diagnosis for this admission?: Yes Plan: Controlled. (4) ETOH abuse Is this a current diagnosis for this admission?: Yes Plan: Will provide ativan for agitation. (5) Hypertension Qualifiers: Hypertension type: renovascular hypertension Qualified Code(s): I15.0 - Renovascular hypertension Is this a current diagnosis for this admission?: Yes Plan: Controlled. (6) Obesity (BMI 30.0-34.9) Is this a current diagnosis for this admission?: Yes Plan: Chronic and a risk factor for his DM. Plan Summary: To get dialyzed today and with more fluid off, hope to extubate. Critical Time Critical Time (minutes): 35 Level of Care: ICU Anticipated discharge: Home with Homehealth Anticipated DC Timeframe: Other -: 1. The care of a critical patient is a dynamic process. This note is a automobile sales representative synopsis but static in nature. The timeframe for treatments given in order is not necessarily the actual time these treatments may have been done. 2. This patient requires critical care secondary to ongoing requirements for therapy not offered or safe outside the critical care environment. Transfer to a lower level of care will result in altered life or limb morbidity and mortality. 3. Multidisciplinary rounds completed. 4. ABCDE bundle addressed.
[2019-12-21] MEDS ORDERED: TUBERCULIN,PURIF.PROT.DERIV. 5 TU/0.1 ML TEST 1 ML VIAL ID ONE (11:00)
--- NOTE | 2019-12-21 11:01 | Progress Note ---
Provider Note Provider Note: Dialysis catheter placed in R femoral vein. Trialysis catheter. No pulsatile flow. All ports flushed with heparin flush.
[2019-12-21] MEDS: ASPIRIN 81 MG TABLET, CHEWABLE PO SCH (12:28)
[2019-12-21 13:50] LABS: FOLATE 4.27 ng/mL (>2.76)
[2019-12-21 13:52] LABS: IRON(TIBC) < 10.1 ug/dL (49-181)
--- NOTE | 2019-12-21 14:18 | PDOC CONSULTATION ---
Consultation Consult Date: 12/21/19 Provider Consulted: PEGGY TORRES Consult reason:: CKD, CHF History of Present Illness Admission Date/PCP: 12/20/19 04:17 JADIEL SHARPE MD History of Present Illness: JARED HORVATH JR is a 59 year old -[place] gentleman known to me with history of chronic kidney disease stage V associated with nephrotic range proteinuria likely due to diabetic nephropathy, combined systolic and diastolic heart failure, diabetes mellitus type 2 and hypertension admitted yesterday with acute hypoxemic respiratory failure likely due to acute congestive heart failure with flash pulmonary edema who failed initial BiPAP and required intubation. History is obtained from previous records as the patient is currently intubated and sedated. Since admission the patient is being given IV diuretics. His urine output since admission was around 1005 mL. His BNP was 10,400 and currently 13,800. He is also came in with BUN of 45, creatinine of 5.54, anion gap metabolic acidosis with bicarbonate of 12/anion gap of 18 and anemia. Patient's kidney function has been rapidly declining this year. The last time I saw him in December 10 he had a blood work done on December 07, 2019 with BUN of 59, creatinine of 5.88, EGFR of 12 and on 11/30/2019 he had a BUN of 55 and creatinine of 5.82 with EGFR of 12. Previous work-up showed negative serologies, hepatitis B and C panels and SPEP. He had nephrotic range proteinuria, most recently of 10 g. Patient has previously declined kidney biopsy. During the last appointment with me, I have discussed with the patient the possibility of requiring renal replacement therapy extensively. I believe the patient is now at end-stage renal disease which could have led to acute flash pulmonary edema and CHF prompting this admission. I spoke with the patient's daughter, Rupa Silvestre by phone at [phone] and discussed the patient's current condition. I reiterated to her my recommendation that the patient be initiated on renal replacement therapy in the form of hemodialysis at this time. I discussed with her the benefits for solute and volume clearance which would help faster recovery hopefully. Discussed the procedure of dialysis including need for vascular access and its complications including but not limited to bleeding, infection, hemodynamic instability during dialysis, and cardiac arrest. She understood the situation and gave the consent for initiation of renal replacement therapy and catheter access placement. I subsequently discussed with Dr. Avalos who agreed with the plan. He will place the dialysis catheter for temporary access today. AT 12:55 PM. Dialysis catheter has been successfully placed by Dr. Avalos. I am currently seeing the patient during his first dialysis treatment. So far he is hemodynamically stable and is tolerating dialysis without any issues at this point. He is being monitored toward very closely. Ultrafiltration will be adjusted accordingly. Past Medical History Cardiac Medical History: Reports: CHF-Diastolic, CHF-Systolic, Hyperlipidemia, Hypertension-primary, Peripheral Vascular Disease, Pulmonary Hypertension Pulmonary Medical History: Reports: Pneumonia, Respiratory Failure Endocrine Medical History: Reports: Diabetes Mellitus Type 2 Complications of Diabetes: Reports: Autonomic Neuropathy, Nephropathy Renal/ Medical History: Reports: Chronic Kidney Disease Stage V, Hyperkalemia, Hyperphosphatemia, Proteinuria, Secondary Hyperparathyroidism GI Medical History: Reports: Gastroesophageal Reflux Disease, Peptic Ulcer Disease Musculoskeltal Medical History: Reports: Arthritis Hematology Medical History: Reports Anemia of Chronic Kidney Disease Past Surgical History Past Surgical History: Reports: Orthopedic Surgery - 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, fourth and fifth toes in 2014 Social History Information Source: [facility] Records Smoking Status: Former Smoker Electronic Cigarette use?: No Frequency of Alcohol Use: Heavy Hx Recreational Drug Use: No Drugs: None Hx Prescription Drug Abuse: No Family History Family History: Reviewed & Not Pertinent Parental Family History Reviewed: Yes Children Family History Reviewed: Yes Sibling(s) Family History Reviewed.: Yes Medication/Allergy Home Medications: Aspirin [Ecotrin 81 mg EC Tablet] 81 mg PO DAILY 12/12/18 Glipizide [Glipizide Xl] 10 mg PO [id number] 06/16/19 Atorvastatin Calcium [Lipitor 40 mg Tablet] 40 mg PO QHS #30 tablet 10/23/19 Carvedilol 25 mg PO Q12 #60 tablet 10/23/19 Furosemide [Lasix 40 mg Tablet] 40 mg PO BID 30 Days #60 tablet 10/23/19 Hydralazine HCl [Apresoline 25 mg Tablet] 25 mg PO Q8 #90 tablet 10/23/19 Valsartan [Diovan 160 mg Tablet] 160 mg PO Q12 #60 tablet 10/23/19 Ergocalciferol (Vitamin D2) [Drisdol 50,000 unit (1.25MG) Capsule] 50,000 unit PO ESQUIVEL 10/25/20 Isosorbide Mononitrate [Imdur 60 mg Tablet.er] 60 mg PO QAM 12/20/19 Nifedipine [Nifedipine ER] 90 mg PO QAM 12/20/19 Allergies/Adverse Reactions: No Known Allergies Allergy (Verified 06/10/18 17:31) Review of Systems ROS unobtainable: Due to endotracheal tube Physical Exam Vital Signs: Temp Pulse Resp BP Pulse Ox 97.0 F 61 14 127/76 H 99 12/21/19 08:48 12/21/19 08:13 12/21/19 08:03 12/21/19 08:03 12/21/19 08:03 Intake & Output 12/20/19 12/21/19 12/22/19 06:59 06:59 06:59 Intake Total 191 559 Output Total 1005 80 Balance 191 -446 -80 Weight 114.5 kg 115.5 kg Vitals during dialysis: Blood pressure 134/80, heart rate of 70, oxygen saturation 98% on ventilator, blood flow rate of 250 mL/min and dialysate flow rate of 600 mL/min. Exam: General appearance: Intubated and sedated, well-developed, well-nourished Head exam: PRESENT: atraumatic, normocephalic Eye exam: PRESENT: Eyes closed Mouth exam: PRESENT: moist, neck supple, tongue midline Neck exam: ABSENT: carotid bruit, JVD, lymphadenopathy, thyromegaly Respiratory exam: PRESENT: Diminished to auscultation bilaterally. ABSENT: rales, rhonchi, stridor, wheezes Cardiovascular exam: PRESENT: RRR, +S1, +S2. ABSENT: systolic murmur Pulses: PRESENT: normal radial pulses, normal dorsalis pedis pulses GI/Abdominal exam: PRESENT: normal bowel sounds, soft. ABSENT: guarding, mass, tenderness Rectal exam: Deferred Extremities exam: PRESENT: full ROM. Upper extremity edema and grade 2 bilateral lower extremity pitting edema ABSENT: calf tenderness Musculoskeletal: ABSENT: deformity Neurological exam: PRESENT: Sedated Psychiatric exam: PRESENT: Unable to be assessed at this time Skin exam: PRESENT: intact, dry, warm. ABSENT: rash Results Laboratory Results: 12/21/19 07:10 12/21/19 04:25 12/20/19 12/20/19 12/20/19 12:00 13:59 16:11 WBC RBC Hgb Hct MCV MCH MCHC RDW Plt Count Seg Neutrophils % Carbonic Acid 0.98 L HCO3/H2CO3 Ratio 19:1 ABG pH 7.39 ABG pCO2 32.7 L ABG pO2 169.5 H ABG HCO3 19.2 L ABG O2 Saturation 99.1 H ABG Base Excess -5.2 FiO2 60% Sodium 136.0 L Potassium 4.9 5.0 Chloride 110 H Carbon Dioxide 19 L Anion Gap 7 BUN 50 H Creatinine 5.99 H Est GFR ( Amer) 12 L Glucose 92 Calcium 7.9 L Phosphorus Magnesium 1.7 12/21/19 12/21/19 12/21/19 04:25 04:25 05:30 WBC Cancelled RBC Cancelled Hgb Cancelled Hct Cancelled MCV Cancelled MCH Cancelled MCHC Cancelled RDW Cancelled Plt Count Cancelled Seg Neutrophils % Cancelled Carbonic Acid 1.21 HCO3/H2CO3 Ratio 16:1 ABG pH 7.32 L ABG pCO2 40.2 ABG pO2 61.0 L ABG HCO3 20.0 ABG O2 Saturation 89.5 L ABG Base Excess -5.7 FiO2 30% Sodium 135.9 L Potassium 4.5 Chloride 110 H Carbon Dioxide 18 L Anion Gap 8 BUN 54 H Creatinine 6.43 H Est GFR ( Amer) 11 L Glucose 85 Calcium 8.0 L Phosphorus 6.4 H Magnesium 2.2 12/21/19 07:10 WBC 6.2 RBC 2.63 L Hgb 7.9 L D Hct 23.0 L MCV 87 D MCH 30.0 MCHC 34.4 RDW 14.7 H Plt Count 223 Seg Neutrophils % 69.9 Carbonic Acid HCO3/H2CO3 Ratio ABG pH ABG pCO2 ABG pO2 ABG HCO3 ABG O2 Saturation ABG Base Excess FiO2 Sodium Potassium Chloride Carbon Dioxide Anion Gap BUN Creatinine Est GFR ( Amer) Glucose Calcium Phosphorus Magnesium 12/20/19 12/20/19 12/21/19 02:45 16:11 04:25 Troponin I 0.048 NT-Pro-B Natriuret Pep 14452 H 56738 H [id number] H Impressions: Chest X-Ray 12/21/19 05:00 IMPRESSION: Endotracheal tube in appropriate position. Assessment & Plan - Diagnosis (1) Acute hypoxemic respiratory failure Is this a current diagnosis for this admission?: Yes Plan: Due to acute flash pulmonary edema in a patient with underlying worsening kidney disease. Currently intubated. Management per master sheet clerk. (2) End stage renal disease Is this a current diagnosis for this admission?: Yes Plan: Secondary to diabetic nephropathy with nephrotic range proteinuria. His kidney function has been rapidly deteriorating for the last several months who has now reached end-stage renal disease requiring initiation of renal replacement therapy. Patient's daughter, Rupa Silvestre has given consent to initiate renal replacement therapy. We will do dialysis today for 2.5 hours, using the patient's dialysis catheter, with 2 potassium bath, blood flow rate of 250 mL per minute, dialysate flow rate of 600 mL per minute, ultrafiltration 1.5 to 2 L as tolerated, no heparin and Retacrit with 25,000 units during dialysis intravenously. Discussed plan with her dialysis nurse. Patient will be monitored throughout dialysis treatment. As mentioned above, patient would need chronic dialysis treatment moving forward. In preparation, I ordered hepatitis panel and PPD to be placed. I also consulted case management to arrange outpatient dialysis treatment upon discharge. Patient's daughter Rupa Silvestre, understood the need for initiation of renal replacement therapy and chronic dialysis treatment moving forward and she consented. (3) Acute on chronic combined systolic and diastolic congestive heart failure Is this a current diagnosis for this admission?: Yes Plan: Presented with elevated BNP currently at 13,800. Last echocardiogram on May 04, 2019 showed LVEF of 40 to 45%, left ventricle moderately dilated with mild LVH, grade 1/4 diastolic dysfunction, moderate global hypokinesia, biatrial dilation and moderate to severe pulmonary hypertension. (4) Acute pulmonary edema with congestive heart failure Is this a current diagnosis for this admission?: Yes (5) Diabetic nephropathy Qualifiers: Diabetes mellitus type: type 2 Qualified Code(s): E11.21 - Type 2 diabetes mellitus with diabetic nephropathy Is this a current diagnosis for this admission?: Yes Plan: Associated with nephrotic range proteinuria, 10 g from last lab. Most likely due to diabetic nephropathy. Serologies including SPEP has been negative previously. (6) Metabolic acidosis Is this a current diagnosis for this admission?: Yes Plan: Due to ESRD. Initiate replacement therapy (7) Anemia in chronic kidney disease (CKD) Is this a current diagnosis for this admission?: Yes Plan: Start Retacrit during dialysis at 25,000 units today. We will check iron panel. Transfuse if hemoglobin goes down below 7. (8) Chronic kidney disease-mineral and bone disorder Is this a current diagnosis for this admission?: Yes Plan: Phosphorus is 6.4 currently. On 12/07/2019 he had a PTH of 642.5 and last of 25-hydroxy vitamin D of less than 4. Patient would need phosphorus binder once extubated. Will start calcitriol. Continue ergocalciferol. (9) Type 2 diabetes mellitus Qualifiers: Diabetes mellitus termite helper insulin use: without termite helper use Diabetes mellitus complication status: with kidney complications Diabetes mellitus complication detail: with chronic kidney disease Chronic kidney disease stage: stage 3 (moderate) Is this a current diagnosis for this admission?: Yes Plan: Controlled. (10) Hypertension Qualifiers: Hypertension type: renovascular hypertension Qualified Code(s): I15.0 - Renovascular hypertension Is this a current diagnosis for this admission?: Yes Plan: Controlled. Continue current medications. - Notes Notes: Thank you very much for this consultation. Discussed with master sheet clerk, Dr. Avalos. Also discussed with patient's daughter, Rupa Silvestre.
[2019-12-21] MEDS: HYDRALAZINE HCL 25 MG TABLET PO SCH ×2 (16:33→21:35)
[2019-12-21] MEDS: CALCITRIOL 0.25 MCG CAPSULE PO SCH (16:35)
[2019-12-21] MEDS ORDERED: ACETAMINOPHEN 650 MG SUPP.RECT PR PRN (18:14)
[2019-12-21] MEDS: ATORVASTATIN CALCIUM 40 MG TABLET PO SCH (21:45)
[2019-12-22 04:34] LABS: ABSOLUTE BASOPHILS # (AUTO) 0.1 10^3/uL (0.0-0.2); ABSOLUTE EOSINOPHILS # (AUTO) 0.1 10^3/uL (0.0-0.6); ABSOLUTE LYMPHOCYTES (AUTO) 0.8 10^3/uL (0.5-4.7); ABSOLUTE MONOCYTES (AUTO) 0.8 10^3/uL (0.1-1.4); BASOPHILS % (AUTO) 0.9 % (0-2); EOSINOPHILS % (AUTO) 1.4 % (0-6); HEMOGLOBIN 9.4 g/dL (13.5-17.0); LYMPHOCYTES % (AUTO) 9.1 % (13-45); MEAN CORPUSCULAR HEMOGLOBIN 29.2 pg (27.0-33.4); MEAN CORPUSCULAR HGB CONC 33.5 g/dL (32.0-36.0); MEAN CORPUSCULAR VOLUME 87 fl (80-97); MONOCYTES % (AUTO) 9.6 % (3-13); PLATELET COUNT 238 10^3/uL (150-450); RED BLOOD COUNT 3.21 10^6/uL (4.35-5.55); RED CELL DISTRIBUTION WIDTH 14.9 % (11.5-14.0); TOTAL CELLS COUNTED % (AUTO) 100 %; WHITE BLOOD COUNT 8.8 10^3/uL (4.0-10.5)
[2019-12-22 04:51] LABS: ANION GAP 8 (5-19); BLOOD UREA NITROGEN 43 mg/dL (7-20); CALCIUM 7.9 mg/dL (8.4-10.2); CARBON DIOXIDE 24 mmol/L (22-30); CHLORIDE 106 mmol/L (98-107); GLUCOSE 87 mg/dL (75-110); PHOSPHORUS 5.1 mg/dL (2.5-4.5)
[2019-12-22] MEDS: INSULIN REG, HUMAN 100 UNIT/ML 3 ML VIAL (PYX) SUBCUT SCH ×3 (05:04→17:53)
[2019-12-22] MEDS: HYDRALAZINE HCL 25 MG TABLET PO SCH ×3 (05:04→22:19)
[2019-12-22] MEDS: HEPARIN SOD (PORCINE) 5,000 UNIT/ML 1 ML VIAL SUBCUT SCH ×3 (05:04→22:18)
[2019-12-22] MEDS: HYDRALAZINE HCL INJ/PF 20 MG/1 ML SDV IV PRN (05:04)
[2019-12-22 06:36] LABS: HEPATITS B SURFACE ANTIGEN Negative (Negative)
[2019-12-22 07:22] LABS: HEPATITIS B CORE AB TOT Negative (Negative)
[2019-12-22] MEDS: ISOSORBIDE MONONITRATE 60 MG TAB.ER.24H PO SCH ×2 (08:19→09:14)
[2019-12-22] MEDS: NIFEDIPINE 30 MG TAB.ER.24 PO SCH (09:14)
[2019-12-22] MEDS: VALSARTAN 160 MG TABLET PO SCH ×2 (09:14→22:19)
[2019-12-22] MEDS: ASPIRIN 81 MG TABLET, CHEWABLE PO SCH (09:15)
[2019-12-22] MEDS: CALCITRIOL 0.25 MCG CAPSULE PO SCH (09:15)
[2019-12-22] MEDS: CARVEDILOL 12.5 MG TABLET PO SCH ×2 (09:15→22:19)
[2019-12-22] MEDS: BUMETANIDE INJ/PF 1 MG/4 ML SDV IV SCH ×2 (09:15→22:19)
[2019-12-22] MEDS: PANTOPRAZOLE SODIUM 40 MG VIAL IV SCH (09:15)
--- NOTE | 2019-12-22 09:29 | PDOC PROGRESS REPORT ---
Subjective Progress Note for:: 12/22/19 Subjective:: Patient tolerated hemodialysis yesterday and had ultrafiltration of about 2 L. Last night he was successfully extubated and is currently just on nasal cannula and is breathing fine. However he seems to be confused as reported by the nurse since last night and when I came in today. He told me he feels good but other than that he could not really answer any questions appropriately. He follows some commands. He did start making some urine with Bumex making 2800 mL of urine for the past 24 hours. Reason For Visit: ACUTE HYPOXEMIC RESPIRATORY FAILURE Physical Exam Vital Signs: Temp Pulse Resp BP Pulse Ox 98.4 F 82 14 170/88 H 99 12/22/19 07:59 12/22/19 08:38 12/22/19 08:38 12/22/19 07:59 12/22/19 08:39 Intake & Output 12/21/19 12/22/19 12/23/19 06:59 06:59 06:59 Intake Total 559 1119 Output Total 1005 5855 125 Balance -446 -4736 -125 Weight 115.5 kg 109.4 kg Exam: General appearance: PRESENT: no acute distress, cooperative, well-developed, well-nourished Head exam: PRESENT: atraumatic, normocephalic Eye exam: PRESENT: conjunctiva mildly pale, PERRLA. ABSENT: scleral icterus Neck exam: ABSENT: JVD Respiratory exam: PRESENT: Diminished breath sounds. Positive mild crackles bilaterally ABSENT: Rhonchi, unlabored, wheezes Cardiovascular exam: PRESENT: Regular rate rhythm -+S1, +S2. ABSENT: diastolic murmur, systolic murmur GI/Abdominal exam: PRESENT: normal bowel sounds, soft. ABSENT: guarding, mass, tenderness Extremities exam: Improved bilateral grade 1 lower extremity pitting edema, left greater than the right with baseline left leg lymphedema, left foot ulcer- chronic Neurological exam: PRESENT: alert, awake, disoriented x3. Skin exam: PRESENT: dry, warm, Results Laboratory Results: 12/22/19 04:13 12/22/19 04:13 12/21/19 12/21/19 12/21/19 07:10 11:38 11:38 WBC RBC Hgb Hct MCV MCH MCHC RDW Plt Count Seg Neutrophils % Retic Count (auto) 1.09 Sodium Potassium Chloride Carbon Dioxide Anion Gap BUN Creatinine Est GFR ( Amer) Glucose Calcium Phosphorus Magnesium Iron < 10.1 L TIBC 200 L Ferritin 276.00 Vitamin B12 308.0 Folate 4.27 PTH Intact 349.5 H 12/22/19 12/22/19 04:13 04:13 WBC 8.8 RBC 3.21 L Hgb 9.4 L Hct 28.0 L MCV 87 MCH 29.2 MCHC 33.5 RDW 14.9 H Plt Count 238 Seg Neutrophils % 79.0 H Retic Count (auto) Sodium 137.7 Potassium 4.0 Chloride 106 Carbon Dioxide 24 Anion Gap 8 BUN 43 H Creatinine 5.59 H Est GFR ( Amer) 13 L Glucose 87 Calcium 7.9 L Phosphorus 5.1 H Magnesium 2.0 Iron TIBC Ferritin Vitamin B12 Folate PTH Intact 12/20/19 12/20/19 12/21/19 02:45 16:11 04:25 Troponin I 0.048 NT-Pro-B Natriuret Pep 53594 H 52748 H 40837 H Impressions: Chest X-Ray 12/21/19 05:00 IMPRESSION: Endotracheal tube in appropriate position. Assessment & Plan - Diagnosis (1) Acute hypoxemic respiratory failure Is this a current diagnosis for this admission?: Yes Plan: Due to acute flash pulmonary edema in a patient with underlying worsening kidney disease. Extubated last night and is currently on nasal cannula. (2) End stage renal disease Is this a current diagnosis for this admission?: Yes Plan: Secondary to diabetic nephropathy with nephrotic range proteinuria. His kidney function has been rapidly deteriorating for the last several months who has now reached end-stage renal disease requiring initiation of renal replacement therapy. Patient's daughter, Rupa Silvestre has given consent to initiate renal replacement therapy, 12/21/2019. She understood the need for initiation of renal replacement therapy and chronic dialysis treatment moving forward unless he has substantial renal recovery and she consented. He tolerated dialysis well yesterday. Even though he is making urine I still believe that he has reached end-stage renal disease that would require chronic dialysis treatment, however we will monitor him while he is here in the hospital and reevaluate for the possibility of some renal recovery and will make final decision. I will plan to do another dialysis treatment tomorrow for solute clearance. (3) Acute on chronic combined systolic and diastolic congestive heart failure Is this a current diagnosis for this admission?: Yes Plan: Presented with elevated BNP currently at 13,800. Last echocardiogram on May 04, 2019 showed LVEF of 40 to 45%, left ventricle moderately dilated with mild LVH, grade 1/4 diastolic dysfunction, moderate global hypokinesia, biatrial dilation and moderate to severe pulmonary hypertension. (4) Acute pulmonary edema with congestive heart failure Is this a current diagnosis for this admission?: Yes Plan: Much improved with hemodialysis ultrafiltration and diuresis. (5) Diabetic nephropathy Qualifiers: Diabetes mellitus type: type 2 Qualified Code(s): E11.21 - Type 2 diabetes mellitus with diabetic nephropathy Is this a current diagnosis for this admission?: Yes Plan: Associated with nephrotic range proteinuria, 10 g from last outpatient lab. Most likely due to diabetic nephropathy. Serologies including SPEP has been negative previously. (6) Metabolic acidosis Is this a current diagnosis for this admission?: Yes Plan: Resolved. (7) Anemia in chronic kidney disease (CKD) Is this a current diagnosis for this admission?: Yes Plan: His iron is very low at less than 10.1 soda iron saturation cannot be calculated, ferritin is 274 . I will give the patient IV Injectafer. (8) Iron deficiency anemia Qualifiers: Iron deficiency anemia type: unspecified iron deficiency Qualified Code(s): D50.9 - Iron deficiency anemia, unspecified Is this a current diagnosis for this admission?: Yes Plan: IV Injectafer x1 dose today. (9) Hypertension Qualifiers: Hypertension type: renovascular hypertension Qualified Code(s): I15.0 - Renovascular hypertension Is this a current diagnosis for this admission?: Yes Plan: Now elevated. If he passes swallow eval, needs to resume oral blood pressure medications. Continue IV blood pressure medications. At baseline patient has difficult to control elevated hypertension with his oral medications. (10) Chronic kidney disease-mineral and bone disorder Is this a current diagnosis for this admission?: Yes Plan: Phosphorus is 5.1 currently, magnesium of 2.0 and PTH of 349.55. On 12/07/2019 he had a PTH of 642.5 and last of 25-hydroxy vitamin D of less than 4. Started on calcitriol. Continue ergocalciferol. (11) Type 2 diabetes mellitus Qualifiers: Diabetes mellitus keno terminal operator insulin use: without senior care use Diabetes mellitus complication status: with kidney complications Diabetes mellitus complication detail: with chronic kidney disease Chronic kidney disease stage: stage 3 (moderate) Is this a current diagnosis for this admission?: Yes Plan: Controlled.
[2019-12-22] MEDS ORDERED: FERRIC CARBOXYMALTOSE 750 MG in NORMAL SALINE 100 ML IV ONE (10:30)
--- NOTE | 2019-12-22 12:47 | PDOC CRITICAL CARE PROG REPORT ---
General Date:: 12/22/19 ICU Day:: 2 Hospital Day:: 2 Resuscitation Status: Full Code Events in the past 12 to 24 Hours:: Extubated, received dialysis and ready for downgrade. Review of systems relevant to events:: Renal, CV, pulmonary Reason for ICU Addmission:: Acute hypoxemic respiratory failure from CHF and renal failure. CKD 4-5 - Medications: Medications reviewed and adjusted accordingly: Yes Vasopressors:: None Sedation:: None Physical Exam Vital Signs: Temp Pulse Resp BP Pulse Ox 98.4 F 89 14 161/83 H 96 12/22/19 10:00 12/22/19 09:51 12/22/19 10:31 12/22/19 10:31 12/22/19 10:31 Intake & Output 12/21/19 12/22/19 12/23/19 06:59 06:59 06:59 Intake Total 559 1119 Output Total 1005 5855 575 Balance -446 -4736 -575 Weight 115.5 kg 109.4 kg Weight/Height Weight 109.4 kg Height 6 ft General appearance: PRESENT: no acute distress, cooperative, obese Head exam: PRESENT: atraumatic, normocephalic Eye exam: PRESENT: conjunctiva pink, EOMI, PERRLA. ABSENT: scleral icterus Ear exam: PRESENT: normal external ear exam Mouth exam: PRESENT: moist, tongue midline Respiratory exam: PRESENT: clear to auscultation liseth. ABSENT: rales, rhonchi, wheezes Cardiovascular exam: PRESENT: RRR. ABSENT: diastolic murmur, rubs, systolic murmur GI/Abdominal exam: PRESENT: normal bowel sounds, soft. ABSENT: distended, guarding, mass, organolmegaly, rebound, tenderness Rectal exam: PRESENT: deferred Gentrourinary exam: PRESENT: indwelling catheter Extremities exam: PRESENT: full ROM, other - L femoral HD catheter.. ABSENT: calf tenderness, clubbing, pedal edema Musculoskeletal exam: PRESENT: normal inspection Neurological exam: PRESENT: alert, altered, awake, CN II-XII grossly intact, other - Mild confusion Psychiatric exam: PRESENT: appropriate affect, normal mood. ABSENT: homicidal ideation, suicidal ideation Skin exam: PRESENT: dry, intact, warm. ABSENT: cyanosis, rash Tubes/Lines: PRESENT: Dialysis catheter Laboratory/Radiographs Laboratory Results: 12/22/19 04:13 12/22/19 04:13 12/21/19 12/21/19 12/22/19 11:38 11:38 04:13 WBC 8.8 RBC 3.21 L Hgb 9.4 L Hct 28.0 L MCV 87 MCH 29.2 MCHC 33.5 RDW 14.9 H Plt Count 238 Seg Neutrophils % 79.0 H Sodium Potassium Chloride Carbon Dioxide Anion Gap BUN Creatinine Est GFR ( Amer) Glucose Calcium Phosphorus Magnesium Iron < 10.1 L TIBC 200 L Ferritin 276.00 Vitamin B12 308.0 Folate 4.27 PTH Intact 349.5 H 12/22/19 04:13 WBC RBC Hgb Hct MCV MCH MCHC RDW Plt Count Seg Neutrophils % Sodium 137.7 Potassium 4.0 Chloride 106 Carbon Dioxide 24 Anion Gap 8 BUN 43 H Creatinine 5.59 H Est GFR ( Amer) 13 L Glucose 87 Calcium 7.9 L Phosphorus 5.1 H Magnesium 2.0 Iron TIBC Ferritin Vitamin B12 Folate PTH Intact 12/20/19 12/20/19 12/21/19 02:45 16:11 04:25 Troponin I 0.048 NT-Pro-B Natriuret Pep 89523 H 35395 H 32828 H Impressions: Chest X-Ray 12/21/19 05:00 IMPRESSION: Endotracheal tube in appropriate position. All labs, radiographs, diagnostic studies and EKGs were personally reviewed: Yes In addition, reports of radiographic and diagnostic studies were read: Yes Assessment and Plan - Diagnosis (1) Acute on chronic combined systolic and diastolic congestive heart failure Is this a current diagnosis for this admission?: Yes Plan: He came in on 12/19 with an element of pulmonary edema. He was diuresed as he still makes urine, but needed dialysis to removed acidosis and excess volume. EF is good. (2) Chronic kidney disease, stage IV (severe) Is this a current diagnosis for this admission?: Yes Plan: Now has a L femoral catheter placed on 12/20. His dialysis may be temporary but most likely permanent and he will need a permacath. (3) Diabetes mellitus type 2 in obese Is this a current diagnosis for this admission?: Yes Plan: This is controlled (4) ETOH abuse Is this a current diagnosis for this admission?: Yes Plan: He has some degree of delirium but it seems to be mostly a hypoactive delirium not hyperactive seen with ETOH withdrawal. (5) Hypertension Qualifiers: Hypertension type: renovascular hypertension Qualified Code(s): I15.0 - Renovascular hypertension Is this a current diagnosis for this admission?: Yes Plan: Running in 160s now. (6) Obesity (BMI 30.0-34.9) Is this a current diagnosis for this admission?: Yes Plan: Chronic Plan Summary: He is stable to transfer to the telemetry floor in case he needs IV medication for BP. Critical Time Critical Time (minutes): 25 Level of Care: TELE Anticipated discharge: Home with Homehealth Anticipated DC Timeframe: Other -: 1. The care of a critical patient is a dynamic process. This note is a operations support representative synopsis but static in nature. The timeframe for treatments given in order is not necessarily the actual time these treatments may have been done. 2. This patient requires critical care secondary to ongoing requirements for therapy not offered or safe outside the critical care environment. Transfer to a lower level of care will result in altered life or limb morbidity and mortality. 3. Multidisciplinary rounds completed. 4. ABCDE bundle addressed.
[2019-12-22 15:37] LABS: HEPATITIS C QUANTITATION HCV Not Detected IU/mL (.)
[2019-12-22] MEDS: ATORVASTATIN CALCIUM 40 MG TABLET PO SCH (22:19)
[2019-12-23] MEDS: INSULIN REG, HUMAN 100 UNIT/ML 3 ML VIAL (PYX) SUBCUT SCH ×5 (00:27→23:47)
[2019-12-23 04:28] LABS: ABSOLUTE BASOPHILS # (AUTO) 0.1 10^3/uL (0.0-0.2); ABSOLUTE EOSINOPHILS # (AUTO) 0.1 10^3/uL (0.0-0.6); ABSOLUTE LYMPHOCYTES (AUTO) 0.9 10^3/uL (0.5-4.7); ABSOLUTE MONOCYTES (AUTO) 0.7 10^3/uL (0.1-1.4); ABSOLUTE NEUT (AUTO) 7.3 10^3/uL (1.7-8.2); BASOPHILS % (AUTO) 0.7 % (0-2); EOSINOPHILS % (AUTO) 1.6 % (0-6); HEMATOCRIT 26.9 % (37.9-51.0); HEMOGLOBIN 9.2 g/dL (13.5-17.0); LYMPHOCYTES % (AUTO) 9.9 % (13-45); MEAN CORPUSCULAR HEMOGLOBIN 29.5 pg (27.0-33.4); MEAN CORPUSCULAR HGB CONC 34.1 g/dL (32.0-36.0); MEAN CORPUSCULAR VOLUME 87 fl (80-97); MONOCYTES % (AUTO) 7.8 % (3-13); PLATELET COUNT 278 10^3/uL (150-450); RED BLOOD COUNT 3.11 10^6/uL (4.35-5.55); RED CELL DISTRIBUTION WIDTH 14.9 % (11.5-14.0); TOTAL CELLS COUNTED % (AUTO) 100 %; WHITE BLOOD COUNT 9.1 10^3/uL (4.0-10.5)
[2019-12-23 04:40] LABS: ANION GAP 15 (5-19); BLOOD UREA NITROGEN 50 mg/dL (7-20); CALCIUM 8.1 mg/dL (8.4-10.2); CARBON DIOXIDE 18 mmol/L (22-30); CHLORIDE 107 mmol/L (98-107); GLUCOSE 105 mg/dL (75-110); PHOSPHORUS 6.2 mg/dL (2.5-4.5); POTASSIUM 3.9 mmol/L (3.6-5.0)
[2019-12-23] MEDS ORDERED: NORMAL SALINE 1000 ML 1,000 ML IV PRN (05:00)
[2019-12-23] MEDS ORDERED: HEPARIN SOD (PORCINE) 1,000 UNIT/ML 10 ML VIAL IV PRN (05:00)
[2019-12-23] MEDS ORDERED: EPOETIN ALFA-EPBX 10,000 UNIT in SYRINGE, DISPOSABLE, 1 EACH IV PRN (05:00)
[2019-12-23] MEDS: HYDRALAZINE HCL 25 MG TABLET PO SCH ×3 (06:03→21:56)
[2019-12-23] MEDS: PANTOPRAZOLE SODIUM 20 MG TABLET.DR PO SCH (06:03)
[2019-12-23] MEDS: HEPARIN SOD (PORCINE) 5,000 UNIT/ML 1 ML VIAL SUBCUT SCH ×3 (06:04→21:55)
[2019-12-23] MEDS: ISOSORBIDE MONONITRATE 60 MG TAB.ER.24H PO SCH (10:15)
[2019-12-23] MEDS: BUMETANIDE INJ/PF 1 MG/4 ML SDV IV SCH ×2 (10:36→21:56)
[2019-12-23] MEDS: CARVEDILOL 12.5 MG TABLET PO SCH ×2 (10:36→21:56)
[2019-12-23] MEDS: VALSARTAN 160 MG TABLET PO SCH ×2 (10:37→21:56)
[2019-12-23] MEDS: CALCITRIOL 0.25 MCG CAPSULE PO SCH (10:37)
[2019-12-23] MEDS: NIFEDIPINE 30 MG TAB.ER.24 PO SCH (10:37)
[2019-12-23] MEDS: ASPIRIN 81 MG TABLET, CHEWABLE PO SCH (10:37)
--- NOTE | 2019-12-23 12:10 | PDOC CRITICAL CARE PROG REPORT ---
General Date:: 12/23/19 Hospital Day:: 3 Resuscitation Status: Full Code Events in the past 12 to 24 Hours:: Awake, alert, oriented but remains perseverating at times. Review of systems relevant to events:: Renal, CV, neurological. Reason for ICU Addmission:: Acute hypoxemic respiratory failure from CHF and renal failure. CKD 4-5 - Medications: Medications reviewed and adjusted accordingly: Yes Vasopressors:: None Sedation:: None Physical Exam Vital Signs: Temp Pulse Resp BP Pulse Ox 98.2 F 75 22 H 135/66 H 96 12/23/19 03:38 12/22/19 20:00 12/23/19 06:01 12/23/19 06:01 12/23/19 06:01 Intake & Output 12/22/19 12/23/19 12/24/19 06:59 06:59 06:59 Intake Total 1119 Output Total 5855 1800 Balance -4736 -1800 Weight 109.4 kg 107.1 kg Weight/Height Weight 107.1 kg Height 6 ft General appearance: PRESENT: no acute distress, well-developed, well-nourished Head exam: PRESENT: atraumatic, normocephalic Eye exam: PRESENT: conjunctiva pink, EOMI, PERRLA. ABSENT: scleral icterus Ear exam: PRESENT: normal external ear exam Mouth exam: PRESENT: moist, tongue midline Respiratory exam: PRESENT: clear to auscultation liseth. ABSENT: rales, rhonchi, wheezes Cardiovascular exam: PRESENT: RRR. ABSENT: diastolic murmur, rubs, systolic murmur GI/Abdominal exam: PRESENT: normal bowel sounds, soft. ABSENT: distended, guarding, mass, organolmegaly, rebound, tenderness Rectal exam: PRESENT: deferred Gentrourinary exam: PRESENT: indwelling catheter Extremities exam: PRESENT: full ROM. ABSENT: calf tenderness, clubbing, pedal edema Musculoskeletal exam: PRESENT: normal inspection Neurological exam: PRESENT: alert, awake, CN II-XII grossly intact, aphasic Psychiatric exam: PRESENT: appropriate affect, normal mood. ABSENT: homicidal ideation, suicidal ideation Skin exam: PRESENT: dry, intact, warm. ABSENT: cyanosis, rash Tubes/Lines: PRESENT: Dialysis catheter Laboratory/Radiographs Laboratory Results: 12/23/19 04:12 12/23/19 04:12 12/23/19 12/23/19 04:12 04:12 WBC 9.1 RBC 3.11 L Hgb 9.2 L Hct 26.9 L MCV 87 MCH 29.5 MCHC 34.1 RDW 14.9 H Plt Count 278 Seg Neutrophils % 80.0 H Sodium 140.0 Potassium 3.9 Chloride 107 Carbon Dioxide 18 L Anion Gap 15 BUN 50 H Creatinine 6.20 H Est GFR ( Amer) 11 L Glucose 105 Calcium 8.1 L Phosphorus 6.2 H Magnesium 2.0 12/20/19 12/20/19 12/21/19 02:45 16:11 04:25 Troponin I 0.048 NT-Pro-B Natriuret Pep 61540 H 77871 H 34790 H Impressions: Chest X-Ray 12/21/19 05:00 IMPRESSION: Endotracheal tube in appropriate position. All labs, radiographs, diagnostic studies and EKGs were personally reviewed: Yes In addition, reports of radiographic and diagnostic studies were read: Yes Assessment and Plan - Diagnosis (1) Acute on chronic combined systolic and diastolic congestive heart failure Is this a current diagnosis for this admission?: Yes Plan: He has had dialysis twice and is otherwise resolved from a CHF perspective. (2) Chronic kidney disease, stage IV (severe) Is this a current diagnosis for this admission?: Yes Plan: Now on HD Saturday and today. Probably permanent (3) Diabetes mellitus type 2 in obese Is this a current diagnosis for this admission?: Yes Plan: Well controlled. (4) ETOH abuse Is this a current diagnosis for this admission?: Yes Plan: There does not seem to be any withdrawal symptoms. His perseverating is not a feature of ETOH withdrawal. We will obtain an MRI of his brain to R/O stroke. He has been up walking with PT yesterday and today. (5) Hypertension Qualifiers: Hypertension type: renovascular hypertension Qualified Code(s): I15.0 - Renovascular hypertension Is this a current diagnosis for this admission?: Yes Plan: Controlled (6) Obesity (BMI 30.0-34.9) Is this a current diagnosis for this admission?: Yes Plan: Awaiting a floor bed still. Critical Time Critical Time (minutes): 30 Level of Care: MEDICAL Anticipated discharge: Home with Homehealth Anticipated DC Timeframe: Other -: 1. The care of a critical patient is a dynamic process. This note is a metals sales representative synopsis but static in nature. The timeframe for treatments given in order is not necessarily the actual time these treatments may have been done. 2. This patient requires critical care secondary to ongoing requirements for therapy not offered or safe outside the critical care environment. Transfer to a lower level of care will result in altered life or limb morbidity and mortality. 3. Multidisciplinary rounds completed. 4. ABCDE bundle addressed.
--- NOTE | 2019-12-23 14:17 | RADIOLOGY REPORT (SQ) ---
EXAM DESCRIPTION: MRI HEAD WITHOUT IMAGES COMPLETED DATE/TIME: 12/23/2019 12:52 pm REASON FOR STUDY: Perseverating and confused, no obvious reason, ? s COMPARISON: None. TECHNIQUE: Multiplanar imaging includes non-contrasted T1, T2, FLAIR, and Diffusion with ADC map seq uences. Images stored on PACS. LIMITATIONS: Patient motion. FINDINGS: ANATOMY: No anomalies. Normal vascular flow voids. Pituitary fossa normal. CSF SPACES: Normal in size and contour. No hemorrhage. CEREBRUM: A few high-signal intensity lesions scattered throughout the white matter on FLAIR imaging with distribution suggesting chronic micro-vascular ischemic change. Sulci and gyri normal in size a nd contour. No evidence of hemorrhage, mass or extraaxial fluid collection. POSTERIOR FOSSA: No signal alteration. No hemorrhage. No edema, masses or mass effect. Internal devora tory canals, cerebello-pontine angles, mastoids normal. DIFFUSION: Large left MCA infarct involving the frontal and parietal lobes. No hemorrhage. ORBITS: No masses. Globes normal. PARANASAL SINUSES: No fluid levels. Mucosa normal. OTHER: No other significant finding. IMPRESSION: 1. Large left MCA infarct. No intracranial hemorrhage. 2. Diffuse cerebral atrophy and small-vessel ischemic changes. EVIDENCE OF ACUTE STROKE: YES. COMMENT: This report was called to KASANDRA JENKINS MD at14:08 on 12/23/2019. TECHNICAL DOCUMENTATION: JOB ID: [id number] 2010 [employer]- All Rights Reserved Reading location - IP/workstation name: [email or web address]
--- NOTE | 2019-12-23 15:58 | RADIOLOGY REPORT (SQ) ---
EXAM DESCRIPTION: CAROTID DOPPLER IMAGES COMPLETED DATE/TIME: 12/23/2019 3:50 pm REASON FOR STUDY: New L MCA stroke COMPARISON: None. TECHNIQUE: Grayscale ultrasound, Doppler velocity and spectra, and color Doppler images acquired of the extra-cranial carotid and vertebral arteries. Images stored on PACS. LIMITATIONS: None. FINDINGS: RIGHT CAROTID CCA Velocities: Within normal limits. ICA Velocities Peak systolic 0.82 m/s. End diastolic 0.25 m/s. Proximal ICA/CCA peak systolic ratio 1.26. Spectra normal. No significant plaque. LEFT CAROTID CCA Velocities: Within normal limits. ICA Velocities Peak systolic 0.55 m/s. End diastolic 0.14 m/s. Proximal ICA/CCA peak systolic ratio 0.52. Spectra normal. No significant plaque. VERTEBRAL ARTERIES: Antegrade flow. Normal waveforms. SUBCLAVIAN ARTERIES: No finding. OTHER: No other significant finding. IMPRESSION: NO HEMODYNAMICALLY SIGNIFICANT STENOSIS. COMMENT: Quality ID #[id number]: Velocity criteria are extrapolated from the diameter data as defined by t he Society of Radiologists in Ultrasound Consensus Conference. Radiology 2003: 229; 340-346. TECHNICAL DOCUMENTATION: JOB ID: [id number] 2010 [employer]- All Rights Reserved Reading location - IP/workstation name: [email or web address]
--- NOTE | 2019-12-23 16:44 | PDOC PROGRESS REPORT ---
Subjective Progress Note for:: 12/23/19 Subjective:: I am seeing the patient on dialysis this morning. He is very comfortable and is currently now on room air without any respiratory distress at all. He is confused and answers "okay" to all questions. Otherwise he is tolerating dialysis well without any issues. He did make 1800 mL of urine for the past 24 hours but his BUN and creatinine continues to be elevated without any signs of renal recovery. Reason For Visit: ACUTE HYPOXEMIC RESPIRATORY FAILURE Physical Exam Vital Signs: Temp Pulse Resp BP Pulse Ox 98.2 F 75 22 H 135/66 H 96 12/23/19 03:38 12/22/19 20:00 12/23/19 06:01 12/23/19 06:01 12/23/19 06:01 Intake & Output 12/22/19 12/23/19 12/24/19 06:59 06:59 06:59 Intake Total 1119 Output Total 5855 1800 Balance -4736 -1800 Weight 109.4 kg 107.1 kg Vitals on dialysis: Blood pressure 152/78, heart rate of 68, blood flow rate of 250 mL/min and dialysate flow rate of 600 mL/min. Patient is currently on room air. Exam: General appearance: PRESENT: no acute distress, cooperative, well-developed, well-nourished Head exam: PRESENT: atraumatic, normocephalic Eye exam: PRESENT: conjunctiva slightly pale, PERRLA. ABSENT: scleral icterus Neck exam: ABSENT: JVD Respiratory exam: PRESENT: Diminished breath sounds. ABSENT: crackles, rales, rhonchi, unlabored, wheezes Cardiovascular exam: PRESENT: Regular rate rhythm -+S1, +S2. ABSENT: diastolic murmur, systolic murmur GI/Abdominal exam: PRESENT: normal bowel sounds, soft. ABSENT: guarding, mass, tenderness Extremities exam: Significantly improved bilateral trace lower extremity edema, chronic left leg lymphedema which is also improved, left foot ulcer unchanged Neurological exam: PRESENT: alert, awake, disoriented. Skin exam: PRESENT: dry, warm, Results Laboratory Results: 12/23/19 04:12 12/23/19 04:12 12/23/19 12/23/19 04:12 04:12 WBC 9.1 RBC 3.11 L Hgb 9.2 L Hct 26.9 L MCV 87 MCH 29.5 MCHC 34.1 RDW 14.9 H Plt Count 278 Seg Neutrophils % 80.0 H Sodium 140.0 Potassium 3.9 Chloride 107 Carbon Dioxide 18 L Anion Gap 15 BUN 50 H Creatinine 6.20 H Est GFR ( Amer) 11 L Glucose 105 Calcium 8.1 L Phosphorus 6.2 H Magnesium 2.0 12/20/19 12/20/19 12/21/19 02:45 16:11 04:25 Troponin I 0.048 NT-Pro-B Natriuret Pep 31534 H 10560 H 54563 H Impressions: Chest X-Ray 12/21/19 05:00 IMPRESSION: Endotracheal tube in appropriate position. Assessment & Plan - Diagnosis (1) End stage renal disease Is this a current diagnosis for this admission?: Yes Plan: Secondary to diabetic nephropathy with nephrotic range proteinuria. His kidney function has been rapidly deteriorating for the last several months who has now reached end-stage renal disease requiring initiation of renal replacement therapy. Patient's daughter, Rupa Silvestre has given consent to initiate renal replacement therapy, 12/21/2019. She understood the need for initiation of renal replacement therapy and chronic dialysis treatment moving forward unless he has substantial renal recovery and she consented. We will do dialysis today for 2.5 hours, using the patient's temporary dialysis catheter, with 3 potassium bath, blood flow rate of 250 mL per minute, dialysate flow rate of 600 mL per minute, ultrafiltration 1 L as tolerated, no heparin and Retacrit with 10,000 units during dialysis intravenously. Patient is currently being monitored closely. For access planning in preparation for discharge, I have spoken with Dr. Tello for placement of PermCath either tomorrow or Saturday. Case management consulted to arrange outpatient dialysis. (2) Acute hypoxemic respiratory failure Is this a current diagnosis for this admission?: Yes Plan: Due to acute flash pulmonary edema in a patient with underlying worsening kidney disease. Resolved. (3) Acute on chronic combined systolic and diastolic congestive heart failure Is this a current diagnosis for this admission?: Yes Plan: Presented with elevated BNP currently at 13,800. Last echocardiogram on May 04, 2019 showed LVEF of 40 to 45%, left ventricle moderately dilated with mild LVH, grade 1/4 diastolic dysfunction, moderate global hypokinesia, biatrial dilation and moderate to severe pulmonary hypertension. Improved and currently compensated after 2 dialysis treatments with ultrafiltration in combination with diuresis. (4) Acute pulmonary edema with congestive heart failure Is this a current diagnosis for this admission?: Yes Plan: Resolved with hemodialysis ultrafiltration and diuresis. (5) Diabetic nephropathy Qualifiers: Diabetes mellitus type: type 2 Qualified Code(s): E11.21 - Type 2 diabetes mellitus with diabetic nephropathy Is this a current diagnosis for this admission?: Yes Plan: Associated with nephrotic range proteinuria, 10 g from last outpatient lab. Most likely due to diabetic nephropathy. Serologies including SPEP has been negative previously. (6) Metabolic acidosis Is this a current diagnosis for this admission?: Yes Plan: On dialysis. (7) Anemia in chronic kidney disease (CKD) Is this a current diagnosis for this admission?: Yes Plan: His iron is very low at less than 10.1, iron saturation cannot be calculated, ferritin is 274 . I gave the patient a dose of IV Injectafer yesterday. Retacrit on dialysis. (8) Iron deficiency anemia Qualifiers: Iron deficiency anemia type: unspecified iron deficiency Qualified Code(s): D50.9 - Iron deficiency anemia, unspecified Is this a current diagnosis for this admission?: Yes Plan: IV Injectafer x1 dose given yesterday. (9) Hypertension Qualifiers: Hypertension type: renovascular hypertension Qualified Code(s): I15.0 - Renovascular hypertension Is this a current diagnosis for this admission?: Yes Plan: At baseline patient has difficult to control elevated hypertension with his oral medications. Improved with resumption of oral home blood pressure medications. (10) Chronic kidney disease-mineral and bone disorder Is this a current diagnosis for this admission?: Yes Plan: Phosphorus is 6.2 currently, magnesium of 2.0 and PTH of 349.55. On 12/07/2019 he had a PTH of 642.5 and last of 25-hydroxy vitamin D of less than 4. Started on calcitriol. Continue ergocalciferol. (11) Type 2 diabetes mellitus Qualifiers: Diabetes mellitus snf insulin use: without long chain beamer use Diabetes mellitus complication status: with kidney complications Diabetes mellitus complication detail: with chronic kidney disease Chronic kidney disease stage: stage 3 (moderate) Is this a current diagnosis for this admission?: Yes Plan: Controlled.
--- NOTE | 2019-12-23 16:46 | XCELERA REPORT ---
[address] [address] Transthoracic Echocardiogram Report Name: MARISELAJARED MORELOS JR Age: 59 yrs Gender: Male : 1960 Patient Status: Inpatient Patient Location: ICU^[id number] Study Date: 12/23/2019 01:46 PM History: TOAN Height: 72 in Weight: 236 lb BSA: 2.3 m2 Procedure: A complete two-dimensional transthoracic echocardiogram was performed (2D, M-mode, spectral and color flow Doppler). The study was technically difficult with many images being suboptimal in quality. Reason For Study: New MCA stroke Previous Evaluation: A previous study was performed on 05/04/2019 LVEF 40- 45%/. History: CVA. Ordering Physician: KASANDRA JENKINS Performed By: Carla Meyer Interpretation Summary The study was technically difficult with many images being suboptimal in quality. Left ventricular systolic function is normal. The Ejection Fraction estimate is 55-60% The right ventricle is normal in size and function. There is a trace amount of mitral regurgitation There is no aortic valve stenosis Right ventricular systolic pressure is estimated to be elevated at 30-40mmHg. There is mild pulmonary hypertension by echo Minimal pericardial effusion. MMode/2D Measurements & Calculations RVDd: 2.6 cm LVIDd: 6.0 cm FS: 33.0 % Ao root diam: 3.0 cm IVSd: 1.4 cm LVIDs: 4.0 cm EDV(Teich): 178.4 ml Ao root area: 6.9 cm2 LVPWd: 1.4 cm ESV(Teich): 70.2 ml EF(Teich): 60.6 % Doppler Measurements & Calculations MV E max kp: MV dec slope: Ao V2 max: LV V1 max P.8 cm/sec 651.6 cm/sec2 134.7 cm/sec 3.9 mmHg MV A max kp: MV dec time: 0.15 secAo max P.3 mmHgLV V1 max: 57.7 cm/sec 99.1 cm/sec MV E/A: 1.7 MR max kp: PI end-d kp: TR max kp: 322.5 cm/sec 80.0 cm/sec 266.3 cm/sec MR max PG: TR max P.6 mmHg 28.6 mmHg Left Ventricle There is severe concentric left ventricular hypertrophy. The left ventricle is mildly dilated. Left ventricular systolic function is normal. The Ejection Fraction estimate is 55-60%. Doppler measurements suggest pseudonormalized left ventricular relaxation, which is associated with grade II/IV or mild to moderate diastolic dysfunction. No regional wall motion abnormalities noted. There is no thrombus. Right Ventricle The right ventricle is normal in size and function. Atria The right atrium is normal. The left atrium is mildly dilated. The interatrial septum is intact with no evidence for an atrial septal defect. There is no Doppler evidence for an interatrial shunt. Mitral Valve The mitral valve is grossly normal. There is no mitral valve stenosis. There is a trace amount of mitral regurgitation. Aortic Valve The aortic valve is sclerotic, but shows no functional abnormality. The aortic valve opens well. The aortic valve is trileaflet. There is no aortic valve stenosis. No aortic regurgitation is present. Tricuspid Valve The tricuspid valve is normal in structure and function. There is a trace amount of tricuspid regurgitation. Right ventricular systolic pressure is estimated to be elevated at 30-40mmHg. There is mild pulmonary hypertension by echo. Pulmonic Valve The pulmonic valve is normal in structure and function. There is no pulmonic valvular stenosis. There is a trace amount of pulmonic regurgitation. Great Vessels The aortic root is normal size. The inferior vena cava appeared normal and decreased > 50% with respiration (RAP 5-10 mmHg). Effusions Minimal pericardial effusion. : KASANDRA JENKINS, Shaquille
[2019-12-23] MEDS: ATORVASTATIN CALCIUM 40 MG TABLET PO SCH (21:56)
--- NOTE | 2019-12-23 21:59 | PDOC CONSULTATION ---
Consultation Consult Date: 12/23/19 Provider Consulted: SURGICAL SURGICALIST Consult reason:: Renal failure, in need of permacath History of Present Illness Admission Date/PCP: 12/20/19 04:17 JADIEL SHARPE MD History of Present Illness: JARED HORVATH JR is a 59 year old male seen in consultation at the request of Dr. Epperson. This patient was admitted to the hospital with hypertensive crisi s, with a subsequent stroke. Currently the patient has expressive aphasia, and cannot relay a reliable review of systems. Currently he is resting comfortably. He does awaken to voice. He nods his head yes, but he repeats "okay, okay, okay". The nurse reports that the patient does not have any significant issues or complaints. He does not have any family present to question. Past Medical History Cardiac Medical History: Reports: Congestive Heart Failure - Chronic combined systolic and diastolic congestive heart failure, Hyperlipidema, Hypertension, Peripheral Vascular Disease Denies: Atrial Fibrillation, Coronary Artery Disease, DVT, Myocardial Infarction, Pulmonary Embolism Pulmonary Medical History: Reports: Pneumonia, Respiratory Failure Denies: Asthma, Bronchitis, Chronic Obstructive Pulmonary Disease (COPD), Tu berculosis Neurological Medical History: Denies: Seizures Endocrine Medical History: Reports: Diabetes Mellitus Type 2 Denies: Diabetes Mellitus Type 1, Hyperthyroidism, Hypothyroidism Renal/ Medical History: Denies: End Stage Renal Disease GI Medical History: Reports: Gastroesophageal Reflux Disease, Peptic Ulcer Disease Denies: Cirrhosis, Crohn's Disease, Hepatitis, Ulcerative Colitis Musculoskeltal Medical History: Reports: Arthritis Denies: Gout Skin Medical History: Denies: Eczema, Psoriasis Psychiatric Medical History: Denies: Bipolar Disorder, Depression Hematology: Reports: Anemia - Chronic anemia due to chronic kidney disease Denies: Bleeding Tendencies Past Surgical History Past Surgical History: Reports: Orthopedic Surgery - 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 Social History Smoking Status: Former Smoker Electronic Cigarette use?: No Frequency of Alcohol Use: Heavy Hx Recreational Drug Use: No Drugs: None Hx Prescription Drug Abuse: No - Advance Directive Resuscitation Status: Full Code Family History Family History: Reviewed & Not Pertinent, CAD, Hypertension, Malignancy Parental Family History Reviewed: Yes Children Family History Reviewed: Yes Sibling(s) Family History Reviewed.: Yes Medication/Allergy Home Medications: Aspirin [Ecotrin 81 mg EC Tablet] 81 mg PO DAILY 12/12/18 Glipizide [Glipizide Xl] 10 mg PO [id number] 06/16/19 Atorvastatin Calcium [Lipitor 40 mg Tablet] 40 mg PO QHS #30 tablet 10/23/19 Carvedilol 25 mg PO Q12 #60 tablet 10/23/19 Furosemide [Lasix 40 mg Tablet] 40 mg PO BID 30 Days #60 tablet 10/23/19 Hydralazine HCl [Apresoline 25 mg Tablet] 25 mg PO Q8 #90 tablet 10/23/19 Valsartan [Diovan 160 mg Tablet] 160 mg PO Q12 #60 tablet 10/23/19 Ergocalciferol (Vitamin D2) [Drisdol 50,000 unit (1.25MG) Capsule] 50,000 unit PO ESQUIVEL 12/20/19 Isosorbide Mononitrate [Imdur 60 mg Tablet.er] 60 mg PO QAM 12/20/19 Nifedipine [Nifedipine ER] 90 mg PO QAM 12/20/19 Allergies/Adverse Reactions: No Known Allergies Allergy (Verified 06/10/18 17:31) Review of Systems ROS unobtainable: Due to mental status Physical Exam Vital Signs: Temp Pulse Resp BP Pulse Ox 98.8 F 80 24 H 136/96 H 95 12/23/19 20:00 12/23/19 20:00 12/23/19 20:00 12/23/19 20:00 12/23/19 20:00 Intake & Output 12/22/19 12/23/19 12/24/19 06:59 06:59 06:59 Intake Total 1119 Output Total 5855 1800 1200 Balance -4736 -1800 -1200 Weight 109.4 kg 107.1 kg 107.1 kg General appearance: PRESENT: no acute distress, cooperative Head exam: PRESENT: atraumatic, normocephalic Eye exam: PRESENT: EOMI, PERRLA. ABSENT: scleral icterus Mouth exam: PRESENT: moist, neck supple Neck exam: ABSENT: thyromegaly, tracheal deviation Respiratory exam: PRESENT: unlabored. ABSENT: tachypnea, wheezes Cardiovascular exam: ABSENT: tachycardia GI/Abdominal exam: PRESENT: soft. ABSENT: rigid, tenderness Rectal exam: PRESENT: deferred Extremities exam: ABSENT: clubbing Neurological exam: PRESENT: awake Psychiatric exam: ABSENT: agitated Focused psych exam: PRESENT: other - Expressive aphasia Skin exam: ABSENT: cyanosis, erythema, jaundice Results Laboratory Results: 12/23/19 04:12 12/23/19 04:12 12/23/19 12/23/19 04:12 04:12 WBC 9.1 RBC 3.11 L Hgb 9.2 L Hct 26.9 L MCV 87 MCH 29.5 MCHC 34.1 RDW 14.9 H Plt Count 278 Seg Neutrophils % 80.0 H Sodium 140.0 Potassium 3.9 Chloride 107 Carbon Dioxide 18 L Anion Gap 15 BUN 50 H Creatinine 6.20 H Est GFR ( Amer) 11 L Glucose 105 Calcium 8.1 L Phosphorus 6.2 H Magnesium 2.0 12/20/19 12/20/19 12/21/19 02:45 16:11 04:25 Troponin I 0.048 NT-Pro-B Natriuret Pep 82776 H 34075 H 71428 H Impressions: Chest X-Ray 12/21/19 05:00 IMPRESSION: Endotracheal tube in appropriate position. Carotid Doppler Study 12/23/19 00:00 IMPRESSION: NO HEMODYNAMICALLY SIGNIFICANT STENOSIS. Head MRI 12/23/19 00:00 IMPRESSION: 1. Large left MCA infarct. No intracranial hemorrhage. 2. Diffuse cerebral atrophy and small-vessel ischemic changes. EVIDENCE OF ACUTE STROKE: YES. Assessment & Plan - Diagnosis (1) End stage renal disease Is this a current diagnosis for this admission?: Yes - Plan Summary Plan Summary: 59-year-old male in need of a permacath for dialysis. The patient is not able to give consent for the procedure due to his recent stroke. He has not been tested for COVID-19. I will order a Covid test. Once his results have returned, we will plan to place the permacath. I will reach out to his family for informed consent tomorrow. Plan for permacath either Saturday or Saturday, once Covid test results are available.
[2019-12-24 04:22] LABS: ANION GAP 11 (5-19); BLOOD UREA NITROGEN 36 mg/dL (7-20); CALCIUM 8.2 mg/dL (8.4-10.2); CARBON DIOXIDE 24 mmol/L (22-30); CHLORIDE 102 mmol/L (98-107); GLUCOSE 117 mg/dL (75-110); POTASSIUM 3.7 mmol/L (3.6-5.0)
[2019-12-24] MEDS: INSULIN REG, HUMAN 100 UNIT/ML 3 ML VIAL (PYX) SUBCUT SCH ×3 (06:04→17:23)
[2019-12-24] MEDS: HYDRALAZINE HCL 25 MG TABLET PO SCH ×3 (06:17→22:38)
[2019-12-24] MEDS: PANTOPRAZOLE SODIUM 20 MG TABLET.DR PO SCH (06:17)
[2019-12-24] MEDS: HEPARIN SOD (PORCINE) 5,000 UNIT/ML 1 ML VIAL SUBCUT SCH ×3 (06:18→22:39)
[2019-12-24] MEDS ORDERED: ACETAMINOPHEN 650 MG SUPP.RECT PR PRN (07:41)
--- NOTE | 2019-12-24 08:05 | Progress Note ---
Provider Note Provider Note: Patient is awaiting permacath placement however his Covid status is still pending Covid test been sent off and we are awaiting the results prior to scheduling permacath placement
[2019-12-24] MEDS: VALSARTAN 160 MG TABLET PO SCH ×3 (09:25→22:38)
[2019-12-24] MEDS: ASPIRIN 81 MG TABLET, CHEWABLE PO SCH ×2 (09:25→12:25)
[2019-12-24] MEDS: ISOSORBIDE MONONITRATE 60 MG TAB.ER.24H PO SCH (09:25)
[2019-12-24] MEDS: CALCITRIOL 0.25 MCG CAPSULE PO SCH ×2 (09:26→12:25)
[2019-12-24] MEDS: CARVEDILOL 12.5 MG TABLET PO SCH ×3 (09:26→22:38)
[2019-12-24] MEDS: NIFEDIPINE 30 MG TAB.ER.24 PO SCH ×2 (09:26→12:25)
[2019-12-24] MEDS: BUMETANIDE INJ/PF 1 MG/4 ML SDV IV SCH (09:26)
[2019-12-24] MEDS ORDERED: LORAZEPAM INJ 2 MG/1 ML VIAL IV ONE (12:30)
[2019-12-24] MEDS: HYDRALAZINE HCL INJ/PF 20 MG/1 ML SDV IV PRN (17:24)
--- NOTE | 2019-12-24 17:34 | PDOC CRITICAL CARE PROG REPORT ---
General Date:: 12/24/19 Hospital Day:: 4 Resuscitation Status: Full Code Events in the past 12 to 24 Hours:: Still has conduction aphasia with periods of frustration. Review of systems relevant to events:: Neurological, renal. Reason for ICU Addmission:: Acute hypoxemic respiratory failure from CHF and renal failure. CKD 4-5 - Medications: Medications reviewed and adjusted accordingly: Yes Vasopressors:: None Sedation:: None Physical Exam Vital Signs: Temp Pulse Resp BP Pulse Ox 97.9 F 68 15 168/88 H 100 12/24/19 15:51 12/24/19 15:51 12/24/19 15:51 12/24/19 15:51 12/24/19 15:51 Intake & Output 12/23/19 12/24/19 12/25/19 06:59 06:59 06:59 Output Total 1800 1925 150 Balance -1800 -1925 -150 Weight 107.1 kg 105.4 kg Weight/Height Weight 105.4 kg Height 6 ft General appearance: PRESENT: no acute distress, cooperative Head exam: PRESENT: atraumatic, normocephalic Eye exam: PRESENT: conjunctiva pink, EOMI, PERRLA. ABSENT: scleral icterus Ear exam: PRESENT: normal external ear exam Mouth exam: PRESENT: moist, tongue midline Respiratory exam: PRESENT: clear to auscultation liseth. ABSENT: rales, rhonchi, wheezes Cardiovascular exam: PRESENT: RRR. ABSENT: diastolic murmur, rubs, systolic murmur Pulses: PRESENT: normal dorsalis pedis pul GI/Abdominal exam: PRESENT: normal bowel sounds, soft. ABSENT: distended, guarding, mass, organolmegaly, rebound, tenderness Rectal exam: PRESENT: deferred Extremities exam: PRESENT: full ROM. ABSENT: calf tenderness, clubbing, pedal edema Musculoskeletal exam: PRESENT: normal inspection Neurological exam: PRESENT: alert, awake, oriented to person, oriented to place, oriented to time, oriented to situation, CN II-XII grossly intact, aphasic Psychiatric exam: PRESENT: agitated - At times Skin exam: PRESENT: dry, intact, warm. ABSENT: cyanosis, rash Tubes/Lines: PRESENT: Dialysis catheter Laboratory/Radiographs Laboratory Results: 12/23/19 04:12 12/24/19 03:37 12/24/19 03:37 Sodium 137.2 Potassium 3.7 Chloride 102 Carbon Dioxide 24 Anion Gap 11 BUN 36 H Creatinine 5.08 H Est GFR ( Amer) 14 L Glucose 117 H Calcium 8.2 L 12/20/19 12/20/19 12/21/19 02:45 16:11 04:25 Troponin I 0.048 NT-Pro-B Natriuret Pep 18664 H 02385 H 54158 H Impressions: Chest X-Ray 12/21/19 05:00 IMPRESSION: Endotracheal tube in appropriate position. Carotid Doppler Study 12/23/19 00:00 IMPRESSION: NO HEMODYNAMICALLY SIGNIFICANT STENOSIS. Head MRI 12/23/19 00:00 IMPRESSION: 1. Large left MCA infarct. No intracranial hemorrhage. 2. Diffuse cerebral atrophy and small-vessel ischemic changes. EVIDENCE OF ACUTE STROKE: YES. EKG: Echo: Normal EF 50-55%. No valve pathology or clot. All labs, radiographs, diagnostic studies and EKGs were personally reviewed: Yes In addition, reports of radiographic and diagnostic studies were read: Yes Assessment and Plan - Diagnosis (1) Stroke Qualifiers: CVA mechanism: unspecified Qualified Code(s): I63.9 - Cerebral infarction, unspecified Is this a current diagnosis for this admission?: Yes Plan: His MRI shows an acute stroke in his L MCA distribution, but not involving the motor strip. He still has an aphasia that is mostly conduction. He is on a spirin, plavix, lipitor and controlled BP. (2) Acute on chronic combined systolic and diastolic congestive heart failure Is this a current diagnosis for this admission?: Yes Plan: Stable since dialysis. (3) Chronic kidney disease, stage IV (severe) Is this a current diagnosis for this admission?: Yes Plan: He is to get a permacath when covid test is returned. (4) Diabetes mellitus type 2 in obese Is this a current diagnosis for this admission?: Yes Plan: Controlled. (5) ETOH abuse Is this a current diagnosis for this admission?: Yes Plan: By report but I can find no history in record. How long ago is not known. (6) Hypertension Qualifiers: Hypertension type: renovascular hypertension Qualified Code(s): I15.0 - Renovascular hypertension Is this a current diagnosis for this admission?: Yes Plan: Controlled and will allow some elevation for his stroke. Plan Summary: Still awaiting a floor bed. Critical Time Critical Time (minutes): 30 Level of Care: IMCU Anticipated discharge: Home Anticipated DC Timeframe: Other -: 1. The care of a critical patient is a dynamic process. This note is a commercial pest control representative synopsis but static in nature. The timeframe for treatments given in order is not necessarily the actual time these treatments may have been done. 2. This patient requires critical care secondary to ongoing requirements for therapy not offered or safe outside the critical care environment. Transfer to a lower level of care will result in altered life or limb morbidity and mortality. 3. Multidisciplinary rounds completed. 4. ABCDE bundle addressed.
[2019-12-24] MEDS: BUMETANIDE 1 MG TABLET PO SCH (22:38)
[2019-12-24] MEDS: ATORVASTATIN CALCIUM 40 MG TABLET PO SCH (22:39)
[2019-12-25] MEDS: HYDRALAZINE HCL INJ/PF 20 MG/1 ML SDV IV PRN ×3 (00:25→13:30)
[2019-12-25] MEDS: INSULIN REG, HUMAN 100 UNIT/ML 3 ML VIAL (PYX) SUBCUT SCH ×4 (03:20→18:38)
[2019-12-25] MEDS ORDERED: NORMAL SALINE 1000 ML 1,000 ML IV PRN (05:00)
[2019-12-25] MEDS ORDERED: EPOETIN ALFA-EPBX 20,000 UNIT in SYRINGE, DISPOSABLE, 1 EACH IV PRN (05:00)
[2019-12-25] MEDS ORDERED: HEPARIN SOD (PORCINE) 1,000 UNIT/ML 10 ML VIAL IV PRN (05:00)
[2019-12-25] MEDS: HYDRALAZINE HCL 25 MG TABLET PO SCH ×3 (06:36→21:00)
[2019-12-25] MEDS: HEPARIN SOD (PORCINE) 5,000 UNIT/ML 1 ML VIAL SUBCUT SCH ×3 (06:36→21:00)
[2019-12-25] MEDS: PANTOPRAZOLE SODIUM 20 MG TABLET.DR PO SCH (06:37)
[2019-12-25 07:01] LABS: ABSOLUTE BASOPHILS # (AUTO) 0.1 10^3/uL (0.0-0.2); ABSOLUTE EOSINOPHILS # (AUTO) 0.2 10^3/uL (0.0-0.6); ABSOLUTE LYMPHOCYTES (AUTO) 0.6 10^3/uL (0.5-4.7); ABSOLUTE MONOCYTES (AUTO) 0.8 10^3/uL (0.1-1.4); ABSOLUTE NEUT (AUTO) 5.3 10^3/uL (1.7-8.2); BASOPHILS % (AUTO) 0.9 % (0-2); HEMATOCRIT 29.5 % (37.9-51.0); HEMOGLOBIN 10.2 g/dL (13.5-17.0); LYMPHOCYTES % (AUTO) 8.6 % (13-45); MEAN CORPUSCULAR HEMOGLOBIN 29.9 pg (27.0-33.4); MEAN CORPUSCULAR HGB CONC 34.6 g/dL (32.0-36.0); MEAN CORPUSCULAR VOLUME 87 fl (80-97); MONOCYTES % (AUTO) 11.1 % (3-13); PLATELET COUNT 347 10^3/uL (150-450); RED BLOOD COUNT 3.42 10^6/uL (4.35-5.55); SEGMENTED NEUTROPHILS % (AUTO) 76.4 % (42-78); TOTAL CELLS COUNTED % (AUTO) 100 %; WHITE BLOOD COUNT 6.9 10^3/uL (4.0-10.5)
[2019-12-25 07:18] LABS: ANION GAP 10 (5-19); BLOOD UREA NITROGEN 36 mg/dL (7-20); CALCIUM 8.3 mg/dL (8.4-10.2); CARBON DIOXIDE 23 mmol/L (22-30); CHLORIDE 103 mmol/L (98-107); GLUCOSE 112 mg/dL (75-110); PHOSPHORUS 4.3 mg/dL (2.5-4.5); POTASSIUM 3.7 mmol/L (3.6-5.0)
[2019-12-25] MEDS: CALCIUM ACETATE 667 MG CAPSULE PO SCH ×3 (08:19→18:35)
[2019-12-25] MEDS: ISOSORBIDE MONONITRATE 60 MG TAB.ER.24H PO SCH (08:20)
[2019-12-25] MEDS: NIFEDIPINE 30 MG TAB.ER.24 PO SCH (10:58)
[2019-12-25] MEDS: ASPIRIN 81 MG TABLET, CHEWABLE PO SCH (10:58)
[2019-12-25] MEDS: VALSARTAN 160 MG TABLET PO SCH ×2 (10:58→21:00)
[2019-12-25] MEDS: CALCITRIOL 0.25 MCG CAPSULE PO SCH (10:58)
[2019-12-25] MEDS: BUMETANIDE 1 MG TABLET PO SCH ×2 (10:58→18:34)
[2019-12-25] MEDS: CARVEDILOL 12.5 MG TABLET PO SCH ×2 (10:58→21:00)
[2019-12-25] MEDS ORDERED: LABETALOL HCL INJ 20 MG/4 ML DISP.SYRIN IV ONE (11:00)
--- NOTE | 2019-12-25 14:33 | PDOC PROGRESS REPORT ---
Subjective Progress Note for:: 12/25/19 Subjective:: I am seeing the patient during dialysis this morning. He is more somnolent today than for the last 4 days. Apparently he has been refusing all his oral medications. He initially refused to do dialysis early this morning but agreed to come later today. He is arousable and mumbles and incomprehensible words. His blood pressure is elevated again because he is not able to take his oral medications is now on as needed IV medications. When he got to dialysis, he is calm and just continues to sleep. He is supposed to get a PermCath today after dialysis. Reason For Visit: ACUTE HYPOXEMIC RESPIRATORY FAILURE Physical Exam Vital Signs: Temp Pulse Resp BP Pulse Ox 98.7 F 91 17 177/74 H 90 L 12/25/19 08:21 12/25/19 08:58 12/25/19 08:21 12/25/19 08:58 12/25/19 08:21 Intake & Output 12/24/19 12/25/19 12/26/19 06:59 06:59 06:59 Output Total 1925 1150 Balance -1925 -1150 Weight 105.4 kg 106 kg Vitals during dialysis: Blood pressure 191/91, heart rate of 85, blood flow rate of 250 mL/min and dialysate flow rate of 600 mL/min. Exam: General appearance: PRESENT: no acute distress, cooperative, well-developed, well-nourished Head exam: PRESENT: atraumatic, normocephalic Eye exam: PRESENT: conjunctiva slightly pale, PERRLA. ABSENT: scleral icterus Neck exam: ABSENT: JVD Respiratory exam: PRESENT: Diminished breath sounds. ABSENT: crackles, rales, rhonchi, unlabored, wheezes Cardiovascular exam: PRESENT: Regular rate rhythm -+S1, +S2. ABSENT: diastolic murmur, systolic murmur GI/Abdominal exam: PRESENT: normal bowel sounds, soft. ABSENT: guarding, mass, tenderness Extremities exam: Trace bilateral lower extremity pitting edema with chronic left lower extremity lymphedema and left foot ulcer Neurological exam: PRESENT: Sleeping but arousable. Aphasic and just mumbling words. Skin exam: PRESENT: dry, warm, Results Laboratory Results: 12/25/19 05:33 12/25/19 05:33 12/25/19 12/25/19 05:33 05:33 WBC 6.9 RBC 3.42 L Hgb 10.2 L Hct 29.5 L MCV 87 MCH 29.9 MCHC 34.6 RDW 15.0 H Plt Count 347 Seg Neutrophils % 76.4 Sodium 136.4 L Potassium 3.7 Chloride 103 Carbon Dioxide 23 Anion Gap 10 BUN 36 H Creatinine 5.06 H Est GFR ( Amer) 14 L Glucose 112 H Calcium 8.3 L Phosphorus 4.3 Magnesium 1.9 12/20/19 12/20/19 12/21/19 02:45 16:11 04:25 Troponin I 0.048 NT-Pro-B Natriuret Pep 45044 H 45977 H 70229 H Impressions: Chest X-Ray 12/21/19 05:00 IMPRESSION: Endotracheal tube in appropriate position. Carotid Doppler Study 12/23/19 00:00 IMPRESSION: NO HEMODYNAMICALLY SIGNIFICANT STENOSIS. Head MRI 12/23/19 00:00 IMPRESSION: 1. Large left MCA infarct. No intracranial hemorrhage. 2. Diffuse cerebral atrophy and small-vessel ischemic changes. EVIDENCE OF ACUTE STROKE: YES. Assessment & Plan - Diagnosis (1) End stage renal disease Is this a current diagnosis for this admission?: Yes Plan: Secondary to diabetic nephropathy with nephrotic range proteinuria. His kidney function has been rapidly deteriorating for the last several months who has now reached end-stage renal disease requiring initiation of renal replacement therapy. Patient's daughter, Rupa Silvestre has given consent to initiate renal replacement therapy, 12/21/2019. She understood the need for initiation of renal replacement therapy and chronic dialysis treatment moving forward unless he has substantial renal recovery and she consented. We will do dialysis today for 2.5 hours, using the patient's temporary dialysis catheter, with 3 potassium bath, blood flow rate of 250 mL per minute, dialysate flow rate of 600 mL per minute, ultrafiltration 1 L as tolerated, no heparin and Retacrit with 10,000 units during dialysis intravenously if blood pressure is better. Patient is currently being monitored closely. Patient supposed to go for PermCath placement after dialysis today. Case management consulted to arrange outpatient dialysis. (2) Left acute arterial ischemic stroke, MCA (middle cerebral artery) Is this a current diagnosis for this admission?: Yes Plan: Currently very aphasic and at times uncooperative refusing medications. I think given his prognosis is guarded. Probably needs another conference with the patient's children to set the plan of care moving forward including continuation of dialysis and possible need for rehab. (3) Acute hypoxemic respiratory failure Is this a current diagnosis for this admission?: Yes Plan: Due to acute flash pulmonary edema in a patient with underlying worsening kidney disease. Resolved. (4) Acute on chronic combined systolic and diastolic congestive heart failure Is this a current diagnosis for this admission?: Yes Plan: Presented with elevated BNP currently at 13,800. Last echocardiogram on May 04, 2019 showed LVEF of 40 to 45%, left ventricle moderately dilated with mild LVH, grade 1/4 diastolic dysfunction, moderate global hypokinesia, biatrial dilation and moderate to severe pulmonary hypertension. Repeat echocardiogram on 12/15/2019 showed EF of 55 to 60% with mild pulmonary hypertension. Improved and currently compensated after initiation of dialysis. (5) Acute pulmonary edema with congestive heart failure Is this a current diagnosis for this admission?: Yes Plan: Resolved with hemodialysis ultrafiltration and diuresis. (6) Diabetic nephropathy Qualifiers: Diabetes mellitus type: type 2 Qualified Code(s): E11.21 - Type 2 diabetes mellitus with diabetic nephropathy Is this a current diagnosis for this admission?: Yes Plan: Associated with nephrotic range proteinuria, 10 g from last outpatient lab. Most likely due to diabetic nephropathy. Serologies including SPEP has been negative previously. (7) Metabolic acidosis Is this a current diagnosis for this admission?: Yes Plan: Resolved on dialysis. (8) Anemia in chronic kidney disease (CKD) Is this a current diagnosis for this admission?: Yes Plan: His iron is very low at less than 10.1, iron saturation cannot be calculated, ferritin is 274 . I gave the patient a dose of IV Injectafer on 12/22/2019. Retacrit on dialysis. (9) Iron deficiency anemia Qualifiers: Iron deficiency anemia type: unspecified iron deficiency Qualified Code(s): D50.9 - Iron deficiency anemia, unspecified Is this a current diagnosis for this admission?: Yes Plan: IV Injectafer x1 dose given 12/22/2019. (10) Hypertension Qualifiers: Hypertension type: renovascular hypertension Qualified Code(s): I15.0 - Renovascular hypertension Is this a current diagnosis for this admission?: Yes Plan: At baseline patient has difficult to control elevated hypertension with his oral medications. Currently suboptimally controlled since unable to take oral medications and has been refusing. Continue IV as needed blood pressure medications. (11) Chronic kidney disease-mineral and bone disorder Is this a current diagnosis for this admission?: Yes Plan: Phosphorus is 6.2 currently, magnesium of 2.0 and PTH of 349.55. On 12/07/2019 he had a PTH of 642.5 and last of 25-hydroxy vitamin D of less than 4. Started on calcitriol. Continue ergocalciferol. Unfortunately at this time the patient is not taking anything orally. 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
[2019-12-25 15:52] LABS: ANION GAP 9 (5-19); BLOOD UREA NITROGEN 22 mg/dL (7-20); CALCIUM 8.4 mg/dL (8.4-10.2); CARBON DIOXIDE 29 mmol/L (22-30); CHLORIDE 101 mmol/L (98-107); GLUCOSE 115 mg/dL (75-110); POTASSIUM 3.5 mmol/L (3.6-5.0)
[2019-12-25] MEDS ORDERED: VANCOMYCIN HCL 0 MG in DEXTROSE 5%-WATER 250 ML IV NR (16:00)
--- NOTE | 2019-12-25 16:16 | PDOC PROGRESS REPORT ---
Subjective Progress Note for:: 12/25/19 Subjective:: 59-year-old male with a large MCA stroke. The patient has a temporary dialysis catheter. Plan for permacath placement today. Per the nursing staff, he has been refusing his medications today, and appears somewhat agitated. Reason For Visit: ACUTE HYPOXEMIC RESPIRATORY FAILURE Physical Exam Vital Signs: Temp Pulse Resp BP Pulse Ox 98.7 F 91 17 177/74 H 90 L 12/25/19 08:21 12/25/19 08:58 12/25/19 08:21 12/25/19 08:58 12/25/19 08:21 Intake & Output 12/24/19 12/25/19 12/26/19 06:59 06:59 06:59 Output Total 1925 1150 1000 Balance -1925 -1150 -1000 Weight 105.4 kg 106 kg General appearance: PRESENT: no acute distress. ABSENT: cooperative Eye exam: PRESENT: EOMI, PERRLA Neck exam: ABSENT: meningismus, tenderness, thyromegaly, tracheal deviation Respiratory exam: PRESENT: unlabored. ABSENT: tachypnea, wheezes Cardiovascular exam: ABSENT: tachycardia Vascular exam: PRESENT: normal capillary refill GI/Abdominal exam: PRESENT: soft. ABSENT: tenderness Rectal exam: PRESENT: deferred Extremities exam: ABSENT: clubbing Musculoskeletal exam: ABSENT: deformity Neurological exam: PRESENT: alert, awake Psychiatric exam: PRESENT: agitated, anxious, other - Expressive aphasia Skin exam: ABSENT: erythema, jaundice Results Laboratory Results: 12/25/19 05:33 12/25/19 15:17 12/25/19 12/25/19 12/25/19 05:33 05:33 15:17 WBC 6.9 RBC 3.42 L Hgb 10.2 L Hct 29.5 L MCV 87 MCH 29.9 MCHC 34.6 RDW 15.0 H Plt Count 347 Seg Neutrophils % 76.4 Sodium 136.4 L 138.6 Potassium 3.7 3.5 L Chloride 103 101 Carbon Dioxide 23 29 Anion Gap 10 9 BUN 36 H 22 H Creatinine 5.06 H 3.70 H Est GFR ( Amer) 14 L 20 L Glucose 112 H 115 H Calcium 8.3 L 8.4 Phosphorus 4.3 Magnesium 1.9 12/20/19 12/20/19 12/21/19 02:45 16:11 04:25 Troponin I 0.048 NT-Pro-B Natriuret Pep 51253 H 09839 H 96878 H Impressions: Chest X-Ray 12/21/19 05:00 IMPRESSION: Endotracheal tube in appropriate position. Carotid Doppler Study 12/23/19 00:00 IMPRESSION: NO HEMODYNAMICALLY SIGNIFICANT STENOSIS. Head MRI 12/23/19 00:00 IMPRESSION: 1. Large left MCA infarct. No intracranial hemorrhage. 2. Diffuse cerebral atrophy and small-vessel ischemic changes. EVIDENCE OF ACUTE STROKE: YES. Assessment & Plan - Diagnosis (1) End stage renal disease Is this a current diagnosis for this admission?: Yes - Time Anticipated Discharge Disposition: unknown Anticipated Discharge Timeframe: unknown - Plan Summary Plan Summary: 59-year-old male with end-stage renal disease. Plan was for permacath today. I discussed permacath with the daughter, Rupa, at approximately 1 PM earlier today. At that time, she consented to the procedure. When the patient was sent for, to insert the permacath, I was notified that the patient's daughter does not want the permacath placed. I have attempted multiple times to contact Rupa. I have been unable to reach her. I could not leave a message, because her voicemail box is not set up. At this time, I will cancel the permacath insertion. Surgery is always available, and willing to place the permacath, should the patient and/or his daughter consent to the procedure. I have discussed the case at length with Dr. Epperson as well as Dr. Hugo. Surgery will sign off at this time. Please renotify when the patient is ready for permacath insertion.
--- NOTE | 2019-12-25 16:59 | RADIOLOGY REPORT (SQ) ---
EXAM DESCRIPTION: CT LT LOWER EXTREMITY WITHOUT IMAGES COMPLETED DATE/TIME: 12/25/2019 3:35 pm REASON FOR STUDY: nectrozing fasciitis COMPARISON: Left foot radiograph, 07/25/2019. TECHNIQUE: CT scan of the left ankle/foot performed without intravenous or oral contrast. Images re viewed with soft tissue and bone windows. Reconstructed coronal and sagittal MPR images reviewed. A ll images stored on PACS. All CT scanners at this facility use dose modulation, iterative reconstruction, and/or weight based d osing when appropriate to reduce radiation dose to as low as reasonably achievable (ALARA). [facility]: Dose Right [facility]: CareDose [facility]: Dose Right [facility]: Teradose 4D [facility]: [employer] RADIATION DOSE: CT Rad equipment meets quality standard of care and radiation dose reduction techniq ues were employed. CTDIvol: 4.1 mGy. DLP: 134 mGy-cm. mGy. LIMITATIONS: None. FINDINGS: BONES: Amputation at the distal 3rd, 4th and 5th digit metatarsals, stable from prior. Se wilma osteoarthritis at the ankle with diffuse osteopenia and bony remodeling at the distal fibula and tibia. Arthrodesis and pin fixation at the tibiotalar joint without evidence of hardware fracture, loosening or subsidence. Bony remodeling at the calcaneal articular surfaces. Bony remodeling and o steophytes at the navicular. Marginal osteophytes at the bones of the midfoot. There is bony remode ling with collapse of the distal metatarsal head 2nd digit and subchondral sclerosis and cystic sanford e similar in appearance to previous examination. No definite cortical disruption or joint effusion. No acute fracture. No acute destructive bone lesion. SOFT TISSUES: There is marked diffuse skin thickening involving the entire foot and ankle. Diffuse s ubcutaneous edema. No focal abscess. No subcutaneous gas. Diffuse muscular atrophy. Tendons appea r grossly intact. There are extensive vascular calcifications. OTHER: No other significant finding. IMPRESSION: 1. Marked diffuse skin thickening and subcutaneous edema involving the ankle and foot most consistent with cellulitis. No focal fluid collection to suggest abscess. No subcutaneous gas. 2. Chronic arthrodesis and surgical fixation at the tibiotalar joint. 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 Findings are stable from previous radiograph. No evidence of acute fracture or destructive bone lesion. 3. Pin fixation at the distal tibia without evidence of hardware complication. 4. Chronic amputations 3rd- 5th digits metatarsals stable in appearance from previous examination. C hronic degenerative change at the 2nd digit metatarsal head appears stable from prior radiograph. TECHNICAL DOCUMENTATION: JOB ID: [id number] Quality ID # [id number]: Final reports with documentation of one or more dose reduction techniques (e.g., Au tomated exposure control, adjustment of the mA and/or kV according to patient size, use of iterative reconstruction technique) 2010 [email or web address]- All Rights Reserved Reading location - IP/workstation name: [email or web address]
--- NOTE | 2019-12-25 18:11 | EKG REPORT ---
SEVERITY:- ABNORMAL ECG - SINUS RHYTHM LEFT ATRIAL ABNORMALITY LVH WITH SECONDARY REPOLARIZATION ABNORMALITY ST DEPRESSION, CONSIDER ISCHEMIA, ANT LEADS BORDERLINE PROLONGED QT INTERVAL : Confirmed by: Jonn Steele MD 25-Dec-2019 18:11:01
--- NOTE | 2019-12-25 19:01 | PDOC PROGRESS REPORT ---
Subjective Progress Note for:: 12/25/19 Subjective:: Mr. Johnathon Garay is a 59-year-old -[place] gentleman with a past medical history of CHF, and CKD. Presented to the ED with severe respiratory distress. He was placed on BiPAP with FiO2 100% ABG ABG revealed a pH of 7.09 PCO2 41.3 PaO2 90.5. He had a BN P 10,400 BUN 45 creatinine 5.54. He failed BiPAP and subsequently was intubated and admitted to the ICU for further management. He was admitted and intubated in the ICU on December 20, 2019 for acute respiratory failure secondary to pulmonary edema. 12/21/19. Patient remained intubated. Nephrology was consulted for initiation of dialysis. HD catheter placed right femoral vein on 12/20 and dialysis was started. 12/22/19. Patient was successfully extubated on 12/21. He was noted to be confused and not really following commands initially thought to be because of sedation for intubation. Surgery was consulted to place a permacath. Covid test ordered and was negative. 12/23/19. Patient continued to be minimally verbal and would not follow command even after 2 days of being extubated. MRI of the brain showed large left MCA infarct. No intracranial hemorrhage. Diffuse cerebral atrophy and small vessel ischemic changes. Carotid Doppler study negative for significant stenosis. 12/24/19. Patient remained stable and was eventually transferred to [facility] on December 24, 2019. 12/25/19. He was seen and examined at bedside, he answers with a mumble but has very minimal verbal output. Predominant right-sided weakness noted. He also spiked a fever of 100.1 today. Left lower leg noted to be swollen and erythematous. CT of the left lower extremity showed findings consistent with cellulitis, no focal fluid collection to suggest abscess. No subcutaneous gas. Blood culture was obtained and he was started on vancomycin for cellulitis. He successfully underwent dialysis today. Reason For Visit: ACUTE HYPOXEMIC RESPIRATORY FAILURE Physical Exam Vital Signs: Temp Pulse Resp BP Pulse Ox 100.0 F 90 17 177/79 H 94 12/25/19 16:41 12/25/19 16:41 12/25/19 16:41 12/25/19 16:41 12/25/19 16:41 Intake & Output 10/29/20 10/30/20 10/31/20 06:59 06:59 06:59 Output Total 1924 1150 1000 Balance -1925 -1150 -1000 Weight 105.4 kg 106 kg General appearance: PRESENT: no acute distress, cooperative Head exam: PRESENT: atraumatic, normocephalic Eye exam: PRESENT: EOMI, PERRLA Mouth exam: PRESENT: moist Neck exam: PRESENT: full ROM Respiratory exam: PRESENT: clear to auscultation liseth, symmetrical, unlabored Cardiovascular exam: PRESENT: RRR, +S1, +S2 GI/Abdominal exam: PRESENT: normal bowel sounds, soft. ABSENT: rebound, tenderness Extremities exam: PRESENT: tenderness - Left lower leg with swelling and tenderness consistent with cellulitis Neurological exam: PRESENT: alert, awake, motor sensory deficit - Right hemiparesis upper and lower extremity,, aphasic - Conductive aphasia noted Results Laboratory Results: 12/25/19 05:33 12/25/19 15:17 12/25/19 12/25/19 12/25/19 05:33 05:33 15:17 WBC 6.9 RBC 3.42 L Hgb 10.2 L Hct 29.5 L MCV 87 MCH 29.9 MCHC 34.6 RDW 15.0 H Plt Count 347 Seg Neutrophils % 76.4 Sodium 136.4 L 138.6 Potassium 3.7 3.5 L Chloride 103 101 Carbon Dioxide 23 29 Anion Gap 10 9 BUN 36 H 22 H Creatinine 5.06 H 3.70 H Est GFR ( Amer) 14 L 20 L Glucose 112 H 115 H Lactic Acid Calcium 8.3 L 8.4 Phosphorus 4.3 Magnesium 1.9 12/25/19 15:17 WBC RBC Hgb Hct MCV MCH MCHC RDW Plt Count Seg Neutrophils % Sodium Potassium Chloride Carbon Dioxide Anion Gap BUN Creatinine Est GFR ( Amer) Glucose Lactic Acid 0.9 Calcium Phosphorus Magnesium 12/20/19 12/20/19 12/21/19 02:45 16:11 04:25 Creatine Kinase Troponin I 0.048 NT-Pro-B Natriuret Pep 53048 H 94832 H 67362 H 12/25/19 12/25/19 15:17 15:17 Creatine Kinase 259 H Troponin I 0.198 NT-Pro-B Natriuret Pep Impressions: Chest X-Ray 12/21/19 05:00 IMPRESSION: Endotracheal tube in appropriate position. Carotid Doppler Study 12/23/19 00:00 IMPRESSION: NO HEMODYNAMICALLY SIGNIFICANT STENOSIS. Head MRI 12/23/19 00:00 IMPRESSION: 1. Large left MCA infarct. No intracranial hemorrhage. 2. Diffuse cerebral atrophy and small-vessel ischemic changes. EVIDENCE OF ACUTE STROKE: YES. Lower Extremity CT 12/25/19 00:00 IMPRESSION: 1. Marked diffuse skin thickening and subcutaneous edema involving the ankle and foot most consistent with cellulitis. No focal fluid collection to suggest abscess. No subcutaneous gas. 2. Chronic arthrodesis and surgical fixation at the tibiotalar joint. 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 Findings are stable from previous radiograph. No evidence of acute fracture or destructive bone lesion. 3. Pin fixation at the distal tibia without evidence of hardware complication. 4. Chronic amputations 3rd- 5th digits metatarsals stable in appearance from previous examination. Chronic degenerative change at the 2nd digit metatarsal head appears stable from prior radiograph. Assessment and Plan - Diagnosis (1) Acute hypoxemic respiratory failure Is this a current diagnosis for this admission?: Yes Plan: -Secondary to pulmonary edema and acute CHF exacerbation from CKD stage V -Intubated on 12/19 -Extubated on 12/21 - off O2 support saturating 98% on RA -Continue to monitor (2) ESRD (end stage renal disease) on dialysis Is this a current diagnosis for this admission?: Yes Plan: -Dialysis initiated on 12/20. ESRD secondary to diabetic nephropathy with nephrotic range proteinuria -Access on his right groin -on calcitriol and Bumex -Retacrit with dialysis -Plan for permacath placement -Surgery to place permacath today however his daughter withdrew her consent because she still has some questions about the dialysis and possible complications. -Case management consulted to arrange for outpatient dialysis -Nephrology following (3) Left acute arterial ischemic stroke, MCA (middle cerebral artery) Is this a current diagnosis for this admission?: Yes Plan: -Patient unable to follow command post extubation, with aphasia -MRI brain 12/22 showed large left MCA infarct -Carotid ultrasound no significant stenosis -Echo showed EF of 55 to 60% normal LV systolic function, minimal pericardial effusion -Patient already on aspirin and statin -Continue medication for hypertension (4) Cellulitis of left lower extremity Is this a current diagnosis for this admission?: Yes Plan: -Noted with erythema swelling and tenderness left lower leg -CT left lower legs showed findings consistent with cellulitis no subcutaneous gas -Started on vancomycin -Blood culture pending (5) Acute on chronic combined systolic and diastolic congestive heart failure Is this a current diagnosis for this admission?: Yes Plan: - BNP 13,800 -Repeat echo today as a follow-up -On bumex, carvedilol, JOANN inhibitor and statin -Being followed by Dr. 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: without half-way use Diabetes mellitus complication status: with kidney complications Diabetes mellitus complication detail: with chronic kidney disease Chronic kidney disease stage: stage 3 (moderate) Is this a current diagnosis for this admission?: Yes Plan: -Accu-Cheks -Sliding scale insulin (8) Severe uncontrolled hypertension Is this a current diagnosis for this admission?: Yes Plan: -On carvedilol, nifedipine, valsartan, Imdur, Bumex, as needed hydralazine (9) Elevated troponin Is this a current diagnosis for this admission?: Yes Plan: -Per nursing 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 troponin elevation likely 2/2 to ESRD - Time Time Spent with patient: 25-34 minutes Anticipated Discharge Disposition: Shelter Facility Anticipated Discharge Timeframe: to be determined
[2019-12-25] MEDS: ATORVASTATIN CALCIUM 40 MG TABLET PO SCH (21:00)
[2019-12-25] MEDS ORDERED: VANCOMYCIN HCL 2,000 MG in DEXTROSE 5%-WATER 500 ML IV ONE (23:00)
[2019-12-26] MEDS: INSULIN REG, HUMAN 100 UNIT/ML 3 ML VIAL (PYX) SUBCUT SCH ×5 (01:02→23:06)
[2019-12-26] MEDS: HYDRALAZINE HCL 25 MG TABLET PO SCH ×3 (05:09→21:03)
[2019-12-26] MEDS: HEPARIN SOD (PORCINE) 5,000 UNIT/ML 1 ML VIAL SUBCUT SCH ×3 (05:15→21:04)
[2019-12-26] MEDS: PANTOPRAZOLE SODIUM 20 MG TABLET.DR PO SCH (05:16)
[2019-12-26] MEDS: HYDRALAZINE HCL INJ/PF 20 MG/1 ML SDV IV PRN (05:21)
[2019-12-26] MEDS: CALCIUM ACETATE 667 MG CAPSULE PO SCH ×3 (08:27→19:28)
[2019-12-26] MEDS: ISOSORBIDE MONONITRATE 60 MG TAB.ER.24H PO SCH (08:27)
[2019-12-26 09:01] LABS: ABSOLUTE EOSINOPHILS # (AUTO) 0.1 10^3/uL (0.0-0.6); ABSOLUTE LYMPHOCYTES (AUTO) 0.9 10^3/uL (0.5-4.7); ABSOLUTE NEUT (AUTO) 8.2 10^3/uL (1.7-8.2); BASOPHILS % (AUTO) 0.4 % (0-2); EOSINOPHILS % (AUTO) 0.6 % (0-6); HEMATOCRIT 27.7 % (37.9-51.0); HEMOGLOBIN 9.4 g/dL (13.5-17.0); LYMPHOCYTES % (AUTO) 8.6 % (13-45); MEAN CORPUSCULAR HEMOGLOBIN 29.7 pg (27.0-33.4); MEAN CORPUSCULAR HGB CONC 34.1 g/dL (32.0-36.0); MEAN CORPUSCULAR VOLUME 87 fl (80-97); PLATELET COUNT 315 10^3/uL (150-450); RED BLOOD COUNT 3.18 10^6/uL (4.35-5.55); RED CELL DISTRIBUTION WIDTH 14.9 % (11.5-14.0); SEGMENTED NEUTROPHILS % (AUTO) 80.4 % (42-78); TOTAL CELLS COUNTED % (AUTO) 100 %; WHITE BLOOD COUNT 10.2 10^3/uL (4.0-10.5)
[2019-12-26 09:12] LABS: ALBUMIN 2.5 g/dL (3.5-5.0); ALKALINE PHOSPHATASE 72 U/L (38-126); ANION GAP 8 (5-19); ASPARTATE AMINO TRANSFERASE 20 U/L (17-59); BILIRUBIN,DIRECT 0.2 mg/dL (0.0-0.4); BILIRUBIN,TOTAL 0.5 mg/dL (0.2-1.3); BLOOD UREA NITROGEN 24 mg/dL (7-20); CALCIUM 8.1 mg/dL (8.4-10.2); CARBON DIOXIDE 28 mmol/L (22-30); CHLORIDE 102 mmol/L (98-107); GLUCOSE 121 mg/dL (75-110); POTASSIUM 3.6 mmol/L (3.6-5.0); TOTAL PROTEIN 5.5 g/dL (6.3-8.2)
[2019-12-26] MEDS: ASPIRIN 81 MG TABLET, CHEWABLE PO SCH (10:28)
[2019-12-26] MEDS: VALSARTAN 160 MG TABLET PO SCH ×2 (10:28→21:03)
[2019-12-26] MEDS: BUMETANIDE 1 MG TABLET PO SCH ×2 (10:28→19:28)
[2019-12-26] MEDS: CALCITRIOL 0.25 MCG CAPSULE PO SCH (10:28)
[2019-12-26] MEDS: NIFEDIPINE 30 MG TAB.ER.24 PO SCH (10:29)
[2019-12-26] MEDS: CARVEDILOL 12.5 MG TABLET PO SCH ×2 (10:29→21:04)
[2019-12-26] MEDS ORDERED: LORAZEPAM INJ 2 MG/1 ML VIAL ONE ×2 (11:53→22:29)
[2019-12-26] MEDS ORDERED: LORAZEPAM INJ 2 MG/1 ML VIAL IV ONE (13:30)
--- NOTE | 2019-12-26 14:00 | PDOC PROGRESS REPORT ---
Subjective Progress Note for:: 12/26/19 Reason For Visit: ACUTE HYPOXEMIC RESPIRATORY FAILURE Physical Exam Vital Signs: Temp Pulse Resp BP Pulse Ox 99.1 F 78 18 166/78 H 98 12/26/19 08:57 12/26/19 08:57 12/26/19 08:57 12/26/19 08:57 12/26/19 08:57 Intake & Output 12/25/19 12/26/19 12/27/19 06:59 06:59 05:59 Intake Total 500 Output Total 1150 1100 Balance -1150 -600 Weight 106 kg 102.6 kg Results Laboratory Results: 12/26/19 08:23 12/26/19 08:23 12/25/19 12/25/19 12/26/19 15:17 15:17 08:23 WBC 10.2 RBC 3.18 L Hgb 9.4 L Hct 27.7 L MCV 87 MCH 29.7 MCHC 34.1 RDW 14.9 H Plt Count 315 Seg Neutrophils % 80.4 H Sodium 138.6 Potassium 3.5 L Chloride 101 Carbon Dioxide 29 Anion Gap 9 BUN 22 H Creatinine 3.70 H Est GFR ( Amer) 20 L Glucose 115 H Lactic Acid 0.9 Calcium 8.4 Total Bilirubin AST Alkaline Phosphatase Total Protein Albumin 12/26/19 08:23 WBC RBC Hgb Hct MCV MCH MCHC RDW Plt Count Seg Neutrophils % Sodium 137.9 Potassium 3.6 Chloride 102 Carbon Dioxide 28 Anion Gap 8 BUN 24 H Creatinine 4.54 H Est GFR ( Amer) 16 L Glucose 121 H Lactic Acid Calcium 8.1 L Total Bilirubin 0.5 AST 20 Alkaline Phosphatase 72 Total Protein 5.5 L Albumin 2.5 L 12/20/19 12/20/19 12/21/19 02:45 16:11 04:25 Creatine Kinase Troponin I 0.048 NT-Pro-B Natriuret Pep 71762 H 77633 H 31165 H 12/25/19 12/25/19 12/25/19 15:17 15:17 20:03 Creatine Kinase 259 H Troponin I 0.198 0.204 NT-Pro-B Natriuret Pep 12/26/19 12/26/19 00:30 08:23 Creatine Kinase Troponin I 0.211 0.160 NT-Pro-B Natriuret Pep Impressions: Chest X-Ray 12/21/19 05:00 IMPRESSION: Endotracheal tube in appropriate position. Carotid Doppler Study 12/23/19 00:00 IMPRESSION: NO HEMODYNAMICALLY SIGNIFICANT STENOSIS. Head MRI 12/23/19 00:00 IMPRESSION: 1. Large left MCA infarct. No intracranial hemorrhage. 2. Diffuse cerebral atrophy and small-vessel ischemic changes. EVIDENCE OF ACUTE STROKE: YES. Lower Extremity CT 12/25/19 00:00 IMPRESSION: 1. Marked diffuse skin thickening and subcutaneous edema involving the ankle and foot most consistent with cellulitis. No focal fluid collection to suggest abscess. No subcutaneous gas. 2. Chronic arthrodesis and surgical fixation at the tibiotalar joint. 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 Findings are stable from previous radiograph. No evidence of acute fracture or destructive bone lesion. 3. Pin fixation at the distal tibia without evidence of hardware complication. 4. Chronic amputations 3rd- 5th digits metatarsals stable in appearance from previous examination. Chronic degenerative change at the 2nd digit metatarsal head appears stable from prior radiograph. Assessment and Plan - Diagnosis (1) Acute hypoxemic respiratory failure Is this a current diagnosis for this admission?: Yes Plan: -Secondary to pulmonary edema and acute CHF exacerbation from CKD stage V -Intubated on 12/19 -Extubated on 12/21 - off O2 support saturating 98% on RA -Continue to monitor (2) ESRD (end stage renal disease) on dialysis Is this a current diagnosis for this admission?: Yes Plan: -Dialysis initiated on 12/20. 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 Surgery on board and I was able to speak to Rupa his daughter sonia and she gave consent for the permacath placement. -Case management consulted to arrange for outpatient dialysis -Nephrology following (3) Left acute arterial ischemic stroke, MCA (middle cerebral artery) Is this a current diagnosis for this admission?: Yes Plan: -Patient unable to follow command post extubation, with aphasia -MRI brain 12/22 showed large left MCA infarct -Carotid ultrasound no significant stenosis -Echo showed EF of 55 to 60% normal LV systolic function, minimal pericardial effusion -Patient already on aspirin and statin -Continue medication for hypertension (4) Cellulitis of left lower extremity Is this a current diagnosis for this admission?: Yes Plan: -Noted with erythema swelling and tenderness left lower leg -CT left lower legs showed findings consistent with cellulitis no subcutaneous gas - also with necrotic wound on his left heel, dressing being changed by nurses. Will re assess wound tomorrow and consult surgery if debridement is needed -Started on vancomycin -Blood culture pending (5) Acute on chronic combined systolic and diastolic congestive heart failure Is this a current diagnosis for this admission?: Yes Plan: - BNP 13,800 -Repeat echo today as a follow-up -On bumex, carvedilol, JOANN inhibitor and statin -Being followed by Dr. King in the outpatient setting -Plan for ICD placement before current admission (6) Acute pulmonary edema with congestive heart failure Is this a current diagnosis for this admission?: Yes Plan: -Proved with dialysis and Bumex (7) Type 2 diabetes mellitus Qualifiers: Diabetes mellitus terminologist insulin use: without longterm use Diabetes mellitus complication status: with kidney complications Diabetes mellitus complication detail: with chronic kidney disease Chronic kidney disease stage: stage 3 (moderate) Is this a current diagnosis for this admission?: Yes Plan: -Accu-Cheks -Sliding scale insulin (8) Severe uncontrolled hypertension Is this a current diagnosis for this admission?: Yes Plan: -On carvedilol, nifedipine, valsartan, Imdur, Bumex, as needed hydralazine (9) Elevated troponin Is this a current diagnosis for this admission?: Yes Plan: -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 trop leak likely due to elevated BP with ESRD -Lead EKG reviewed no significant change from previous, no ST elevation - trop 0.198>0.21>0.16 in the setting of ESRD on dialysis - Time Time Spent with patient: 25-34 minutes Anticipated Discharge Disposition: Shelter Facility Anticipated Discharge Timeframe: to be determined
--- NOTE | 2019-12-26 14:09 | ADVANCED CARE ---
- Diagnosis (1) Acute hypoxemic respiratory failure Diagnosis Current: Yes (2) ESRD (end stage renal disease) on dialysis Diagnosis Current: Yes (3) Left acute arterial ischemic stroke, MCA (middle cerebral artery) Diagnosis Current: Yes (4) Cellulitis of left lower extremity Diagnosis Current: Yes (5) Acute on chronic combined systolic and diastolic congestive heart failure Diagnosis Current: Yes (6) Acute pulmonary edema with congestive heart failure Diagnosis Current: Yes (7) Type 2 diabetes mellitus Diagnosis Current: Yes (8) Severe uncontrolled hypertension Diagnosis Current: Yes (9) Elevated troponin Diagnosis Current: Yes Attendance: Daughter Rupa Resuscitation Status: Full Code Discussion: I was able to reach the patients daughter Rupa via phone call. We talked about the result of his MRI with the large left MCA stroke. I informed her that the patient is aphasic and coupled with his other medical condition and commencement of dialysis, his recovery will be a long and hard one with probable complications down the road. She seems to understand this. I also discussed with her the patients next level of care since he will need extensive rehab and the home setting might not be ideal for him at this point since he would also need to go to scheduled dialysis. Rupa stated that the patient said he does not want to go to a NH, prior to his stroke. She also said that the patient wants to be resuscitated in case of a cardiac arrest but he has not mentioned his directive in terms of life support or artificial feedings. At this point, considering all his medical problems I think a referral to palliative service will be useful to help them navigate this time. He has not completed any paper work according to Rupa in terms of HCPOA but her daughter confirmed that the patients will be acting as his surrogate. Document(s) Completed: none Time Spent: >30 min over the phone.
[2019-12-26] MEDS: ATORVASTATIN CALCIUM 40 MG TABLET PO SCH (21:04)
[2019-12-26] MEDS: LORAZEPAM INJ 2 MG/1 ML VIAL IV PRN (22:30)
[2019-12-26] MEDS ORDERED: CHLORPROMAZINE HCL INJ 25 MG/1 ML AMPULE IM PRN (22:38)
[2019-12-26] MEDS ORDERED: CHLORPROMAZINE HCL INJ 25 MG/1 ML AMPULE ONE (22:55)
[2019-12-27] MEDS: HYDRALAZINE HCL INJ/PF 20 MG/1 ML SDV IV PRN ×2 (01:23→05:30)
[2019-12-27] MEDS: LORAZEPAM INJ 2 MG/1 ML VIAL IV PRN ×2 (01:30→08:19)
[2019-12-27] MEDS: HYDRALAZINE HCL 25 MG TABLET PO SCH ×3 (04:59→21:55)
[2019-12-27] MEDS: PANTOPRAZOLE SODIUM 20 MG TABLET.DR PO SCH (04:59)
[2019-12-27] MEDS: INSULIN REG, HUMAN 100 UNIT/ML 3 ML VIAL (PYX) SUBCUT SCH ×3 (04:59→17:42)
[2019-12-27] MEDS: HEPARIN SOD (PORCINE) 5,000 UNIT/ML 1 ML VIAL SUBCUT SCH ×3 (05:01→21:55)
[2019-12-27 06:06] LABS: ABSOLUTE BASOPHILS # (AUTO) 0.1 10^3/uL (0.0-0.2); ABSOLUTE LYMPHOCYTES (AUTO) 0.9 10^3/uL (0.5-4.7); ABSOLUTE MONOCYTES (AUTO) 1.7 10^3/uL (0.1-1.4); ABSOLUTE NEUT (AUTO) 14.1 10^3/uL (1.7-8.2); BASOPHILS % (AUTO) 0.6 % (0-2); EOSINOPHILS % (AUTO) 0.2 % (0-6); HEMATOCRIT 28.3 % (37.9-51.0); HEMOGLOBIN 9.5 g/dL (13.5-17.0); LYMPHOCYTES % (AUTO) 5.5 % (13-45); MEAN CORPUSCULAR HEMOGLOBIN 29.3 pg (27.0-33.4); MEAN CORPUSCULAR HGB CONC 33.4 g/dL (32.0-36.0); MEAN CORPUSCULAR VOLUME 88 fl (80-97); PLATELET COUNT 329 10^3/uL (150-450); RED BLOOD COUNT 3.22 10^6/uL (4.35-5.55); RED CELL DISTRIBUTION WIDTH 14.9 % (11.5-14.0); SEGMENTED NEUTROPHILS % (AUTO) 83.7 % (42-78); TOTAL CELLS COUNTED % (AUTO) 100 %; WHITE BLOOD COUNT 16.9 10^3/uL (4.0-10.5)
[2019-12-27 06:31] LABS: ALBUMIN 2.7 g/dL (3.5-5.0); ALKALINE PHOSPHATASE 78 U/L (38-126); ANION GAP 12 (5-19); ASPARTATE AMINO TRANSFERASE 27 U/L (17-59); BILIRUBIN,DIRECT 0.2 mg/dL (0.0-0.4); BILIRUBIN,TOTAL 0.6 mg/dL (0.2-1.3); BLOOD UREA NITROGEN 30 mg/dL (7-20); CALCIUM 8.3 mg/dL (8.4-10.2); CARBON DIOXIDE 24 mmol/L (22-30); CHLORIDE 103 mmol/L (98-107); GLUCOSE 111 mg/dL (75-110); POTASSIUM 3.6 mmol/L (3.6-5.0); TOTAL PROTEIN 5.6 g/dL (6.3-8.2)
[2019-12-27] MEDS ORDERED: ERGOCALCIFEROL (VITAMIN D2) 50000 UNIT (1.25 MG) CAPSULE PO SCH (07:36)
[2019-12-27] MEDS: CALCIUM ACETATE 667 MG CAPSULE PO SCH ×3 (08:19→16:55)
[2019-12-27] MEDS: ISOSORBIDE MONONITRATE 60 MG TAB.ER.24H PO SCH (08:20)
[2019-12-27] MEDS: CARVEDILOL 12.5 MG TABLET PO SCH ×2 (09:18→21:54)
[2019-12-27] MEDS: NIFEDIPINE 30 MG TAB.ER.24 PO SCH (09:18)
[2019-12-27] MEDS: ASPIRIN 81 MG TABLET, CHEWABLE PO SCH (09:19)
[2019-12-27] MEDS: BUMETANIDE 1 MG TABLET PO SCH ×2 (09:19→17:00)
[2019-12-27] MEDS: VALSARTAN 160 MG TABLET PO SCH ×2 (09:19→21:55)
[2019-12-27] MEDS: CALCITRIOL 0.25 MCG CAPSULE PO SCH (09:19)
--- NOTE | 2019-12-27 11:34 | RADIOLOGY REPORT (SQ) ---
EXAM DESCRIPTION: CHEST SINGLE VIEW IMAGES COMPLETED DATE/TIME: 12/27/2019 10:52 am REASON FOR STUDY: SOB COMPARISON: 12/21/2019 FINDINGS: One-view chest AP portable upright. Improving with improving basilar aeration. Persistent perihilar edema and vascular congestion. No p neumothorax. Endotracheal and nasogastric tubes have been removed. TECHNICAL DOCUMENTATION: JOB ID: [id number] Reading location - IP/workstation name: [email or web address]
--- NOTE | 2019-12-27 12:23 | PDOC PROGRESS REPORT ---
Subjective Progress Note for:: 12/27/19 Subjective:: Mr. Johnathon Garay is a 59-year-old -[place] gentleman with a past medical history of CHF, and CKD. Presented to the ED with severe respiratory distress. He was placed on BiPAP with FiO2 100% ABG ABG revealed a pH of 7.09 PCO2 41.3 PaO2 90.5. He had a BN P 10,400 BUN 45 creatinine 5.54. He failed BiPAP and subsequently was intubated and admitted to the ICU for further management. He was admitted and intubated in the ICU on December 20, 2019 for acute respiratory failure secondary to pulmonary edema. 12/21/19. Patient remained intubated. Nephrology was consulted for initiation of dialysis. HD catheter placed right femoral vein on 12/20 and dialysis was started. 12/22/19. Patient was successfully extubated on 12/21. He was noted to be confused and not really following commands initially thought to be because of sedation for intubation. Surgery was consulted to place a permacath. Covid test ordered and was negative. 12/23/19. Patient continued to be minimally verbal and would not follow command even after 2 days of being extubated. MRI of the brain showed large left MCA infarct. No intracranial hemorrhage. Diffuse cerebral atrophy and small vessel ischemic changes. Carotid Doppler study negative for significant stenosis. 12/24/19. Patient remained stable and was eventually transferred to [facility] on December 24, 2019. 12/25/19. He was seen and examined at bedside, he answers with a mumble but has very minimal verbal output. Predominant right-sided weakness noted. He also spiked a fever of 100.1 today. Left lower leg noted to be swollen and erythematous. CT of the left lower extremity showed findings consistent with cellulitis, no focal fluid collection to suggest abscess. No subcutaneous gas. Blood culture was obtained and he was started on vancomycin for cellulitis. He successfully underwent dialysis today. 12/26/19. He was seen and examined at bedside.He seems to be talking more today but still does not make much sense and cannot follow command. He had episodes of agitation. ativan was given. Afebrile. Appetite good 12/27/19. He was seen and examined at bedside. He was put on O2 due to periods of desaturation . Per review of nurses notes he was also very agitated last night, pulling out lines and trying to get ou of bed. He was given thorazine and ativan. I spoke to her daughter Rupa yesterday and updated her of her father's status and the need for permacath for dialysis. She gave verbal consent for permacath placement. Discussed with her that with the large stroke, and he recently got on dialysis and CHF his recovery will be long and hard. Reason For Visit: ACUTE HYPOXEMIC RESPIRATORY FAILURE Physical Exam Vital Signs: Temp Pulse Resp BP Pulse Ox 99.6 F 117 H 17 192/88 H 93 12/27/19 10:00 12/27/19 09:38 12/27/19 04:38 12/27/19 04:38 12/27/19 09:38 Intake & Output 12/26/19 12/27/19 12/28/19 07:59 06:59 06:59 Intake Total Output Total Balance Weight General appearance: PRESENT: cooperative, mild distress Head exam: PRESENT: atraumatic, normocephalic Eye exam: PRESENT: EOMI, PERRLA Mouth exam: PRESENT: moist Neck exam: PRESENT: full ROM Respiratory exam: PRESENT: rales, symmetrical, tachypnea Cardiovascular exam: PRESENT: RRR, +S1, +S2, tachycardia Pulses: PRESENT: normal carotid pulses GI/Abdominal exam: PRESENT: normal bowel sounds, soft. ABSENT: rebound, tenderness Extremities exam: PRESENT: other - right sided weakness right leg than right arm, also has a necrotic wound left feet plantar surface Neurological exam: PRESENT: alert, awake, aphasic Psychiatric exam: PRESENT: agitated Skin exam: PRESENT: normal color Results Laboratory Results: 12/27/19 05:25 12/27/19 05:25 12/27/19 12/27/19 05:25 05:25 WBC 16.9 H RBC 3.22 L Hgb 9.5 L Hct 28.3 L MCV 88 MCH 29.3 MCHC 33.4 RDW 14.9 H Plt Count 329 Seg Neutrophils % 83.7 H Sodium 139.1 Potassium 3.6 Chloride 103 Carbon Dioxide 24 Anion Gap 12 BUN 30 H Creatinine 5.23 H Est GFR ( Amer) 14 L Glucose 111 H Calcium 8.3 L Total Bilirubin 0.6 AST 27 Alkaline Phosphatase 78 Total Protein 5.6 L Albumin 2.7 L 12/20/19 12/20/19 12/21/19 02:45 16:11 04:25 Creatine Kinase Troponin I 0.048 NT-Pro-B Natriuret Pep 81420 H 55451 H 43078 H 12/25/19 12/25/19 12/25/19 15:17 15:17 20:03 Creatine Kinase 259 H Troponin I 0.198 0.204 NT-Pro-B Natriuret Pep 12/26/19 12/26/19 00:30 08:23 Creatine Kinase Troponin I 0.211 0.160 NT-Pro-B Natriuret Pep Impressions: Carotid Doppler Study 12/23/19 00:00 IMPRESSION: NO HEMODYNAMICALLY SIGNIFICANT STENOSIS. Head MRI 12/23/19 00:00 IMPRESSION: 1. Large left MCA infarct. No intracranial hemorrhage. 2. Diffuse cerebral atrophy and small-vessel ischemic changes. EVIDENCE OF ACUTE STROKE: YES. Lower Extremity CT 12/25/19 00:00 IMPRESSION: 1. Marked diffuse skin thickening and subcutaneous edema involving the ankle and foot most consistent with cellulitis. No focal fluid collection to suggest abscess. No subcutaneous gas. 2. Chronic arthrodesis and surgical fixation at the tibiotalar joint. 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 Findings are stable from previous radiograph. No evidence of acute fracture or destructive bone lesion. 3. Pin fixation at the distal tibia without evidence of hardware complication. 4. Chronic amputations 3rd- 5th digits metatarsals stable in appearance from previous examination. Chronic degenerative change at the 2nd digit metatarsal head appears stable from prior radiograph. Assessment and Plan - Diagnosis (1) Acute hypoxemic respiratory failure Is this a current diagnosis for this admission?: Yes Plan: -Secondary to pulmonary edema and acute CHF exacerbation from CKD stage V -Intubated on 12/19 -Extubated on 12/21 -repeat CXR improving basilar aeration. Persistent perihilar edema and vascular congestion. No pneumothorax. - wean off O2 as tolerated -Continue to monitor (2) ESRD (end stage renal disease) on dialysis Is this a current diagnosis for this admission?: Yes Plan: -Dialysis initiated on 12/20. 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 Surgery on board and I was able to speak to Rupa his daughter today and she gave consent for the permacath placement. -Case management consulted to arrange for outpatient dialysis -Nephrology following (3) Left acute arterial ischemic stroke, MCA (middle cerebral artery) Is this a current diagnosis for this admission?: Yes Plan: -Patient unable to follow command post extubation, with aphasia -MRI brain 12/22 showed large left MCA infarct -Carotid ultrasound no significant stenosis -Echo showed EF of 55 to 60% normal LV systolic function, minimal pericardial effusion -Patient already on aspirin and statin -Continue medication for hypertension - he would need extensive rehab (4) Cellulitis of left lower extremity Is this a current diagnosis for this admission?: Yes Plan: -Noted with erythema swelling and tenderness left lower leg -CT left lower legs showed findings consistent with cellulitis no subcutaneous gas - blood culture negative - also with necrotic wound on his left heel, dressing being changed by nurses. Will re assess wound tomorrow and consult surgery if debridement is needed -Started on vancomycin (5) Acute on chronic combined systolic and diastolic congestive heart failure Is this a current diagnosis for this admission?: Yes Plan: - BNP 13,800 -Repeat echo today as a follow-up -On bumex, carvedilol, JOANN inhibitor and statin -Being followed by Dr. King in the outpatient setting -Plan for ICD placement before current admission (6) Acute pulmonary edema with congestive heart failure Is this a current diagnosis for this admission?: Yes Plan: -improved with dialysis and Bumex (7) Type 2 diabetes mellitus Qualifiers: Diabetes mellitus terminal supervisor insulin use: without long-term use Diabetes mellitus complication status: with kidney complications Diabetes mellitus complication detail: with chronic kidney disease Chronic kidney disease stage: stage 3 (moderate) Is this a current diagnosis for this admission?: Yes Plan: -Accu-Cheks -Sliding scale insulin (8) Severe uncontrolled hypertension Is this a current diagnosis for this admission?: Yes Plan: -On carvedilol, nifedipine, valsartan, Imdur, Bumex, as needed hydralazine - blood pressure still very labile but seems to improve whenever he gets dialysis (9) Elevated troponin Is this a current diagnosis for this admission?: Yes Plan: -Per nursing noted with EKG changes on library monitor -not complaining of chest pain. trop leak likely due to elevated BP with ESRD -Lead EKG reviewed no significant change from previous, no ST elevation - trop 0.198>0.21>0.16 in the setting of ESRD on dialysis (10) Delirium due to another medical condition Is this a current diagnosis for this admission?: Yes Plan: - this is likely 2/2 to recent L MCA stroke - would use redirection and reduction of stimulus at night (windows down, TV off, optimize VS check interval) to manage - haldol as needed - restraints only if above has not worked - Time Time Spent with patient: 25-34 minutes Anticipated Discharge Disposition: Detention Facility Anticipated Discharge Timeframe: to be determined
[2019-12-27] MEDS ORDERED: LABETALOL HCL INJ 20 MG/4 ML DISP.SYRIN IV ONE (12:45)
[2019-12-27] MEDS ORDERED: EPOETIN ALFA-EPBX 10,000 UNIT in SYRINGE, DISPOSABLE, 1 EACH IV PRN (17:29)
[2019-12-27] MEDS: ATORVASTATIN CALCIUM 40 MG TABLET PO SCH (21:55)
[2019-12-27] MEDS: HALOPERIDOL LACTATE INJ 5 MG/1 ML VIAL IV PRN (21:55)
[2019-12-28] MEDS: HALOPERIDOL LACTATE INJ 5 MG/1 ML VIAL IV PRN ×2 (04:06→16:43)
[2019-12-28] MEDS ORDERED: NORMAL SALINE 1000 ML 1,000 ML IV PRN (05:00)
[2019-12-28] MEDS ORDERED: HEPARIN SOD (PORCINE) 1,000 UNIT/ML 10 ML VIAL IV PRN (05:00)
[2019-12-28 05:12] LABS: APPEARANCE,URINE CLEAR; BILIRUBIN,URINE NEGATIVE (NEGATIVE); COLOR,URINE YELLOW; GLUCOSE, URINE 150 mg/dL (NEGATIVE); KETONES,URINE TRACE mg/dL (NEGATIVE); PROTEIN,URINE >=500 mg/dL (NEGATIVE); URINE SPECIFIC GRAVITY 1.016; UROBILINOGEN,URINE NEGATIVE mg/dL (<2.0)
[2019-12-28] MEDS: HEPARIN SOD (PORCINE) 5,000 UNIT/ML 1 ML VIAL SUBCUT SCH ×3 (05:23→21:48)
[2019-12-28] MEDS: HYDRALAZINE HCL 25 MG TABLET PO SCH (05:23)
[2019-12-28] MEDS: PANTOPRAZOLE SODIUM 20 MG TABLET.DR PO SCH (05:24)
[2019-12-28 06:33] LABS: HEMATOCRIT 29.1 % (37.9-51.0); HEMOGLOBIN 9.6 g/dL (13.5-17.0); MEAN CORPUSCULAR HEMOGLOBIN 29.3 pg (27.0-33.4); MEAN CORPUSCULAR HGB CONC 33.1 g/dL (32.0-36.0); MEAN CORPUSCULAR VOLUME 88 fl (80-97); PLATELET COUNT 315 10^3/uL (150-450); RED BLOOD COUNT 3.29 10^6/uL (4.35-5.55); RED CELL DISTRIBUTION WIDTH 14.8 % (11.5-14.0); WHITE BLOOD COUNT 18.5 10^3/uL (4.0-10.5)
[2019-12-28 06:57] LABS: ALBUMIN 2.5 g/dL (3.5-5.0); ALKALINE PHOSPHATASE 74 U/L (38-126); ANION GAP 9 (5-19); ASPARTATE AMINO TRANSFERASE 26 U/L (17-59); BILIRUBIN,DIRECT 0.4 mg/dL (0.0-0.4); BILIRUBIN,TOTAL 0.7 mg/dL (0.2-1.3); BLOOD UREA NITROGEN 38 mg/dL (7-20); CALCIUM 8.2 mg/dL (8.4-10.2); CARBON DIOXIDE 27 mmol/L (22-30); CHLORIDE 103 mmol/L (98-107); GLUCOSE 169 mg/dL (75-110); POTASSIUM 3.9 mmol/L (3.6-5.0); TOTAL PROTEIN 5.3 g/dL (6.3-8.2)
[2019-12-28 07:54] LABS: ABSOLUTE LYMPHOCYTES# (MANUAL) 1.1 10^3/uL (0.5-4.7); ABSOLUTE MONOCYTES # (MANUAL) 1.1 10^3/uL (0.1-1.4); ANISOCYTOSIS SLIGHT; BASOPHILS % (MANUAL) 0 % (0-2); EOSINOPHILS % (MANUAL) 0 % (0-6); LYMPHOCYTES % (MANUAL) 6 % (13-45); MONOCYTES % (MANUAL) 6 % (3-13); SEGMENTED NEUTROPHILS % (MAN) 88 % (42-78); TOTAL CELLS COUNTED 100
[2019-12-28 07:55] LABS: PLATELET COMMENT ADEQUATE; POIKILOCYTOSIS 1+; SCHISTOCYTES 1+
[2019-12-28] MEDS ORDERED: DEXTROSE 40% GEL 15 GM TUBE PO PRN (08:40)
--- NOTE | 2019-12-28 10:51 | PDOC PROGRESS REPORT ---
Subjective Progress Note for:: 12/28/19 Subjective:: 59-year-old male with a large MCA stroke. The patient has a temporary dialysis catheter. Patient's daughter is now agreeable for permacath. Plan for permacath placement today. Reason For Visit: ACUTE HYPOXEMIC RESPIRATORY FAILURE Physical Exam Vital Signs: Temp Pulse Resp BP Pulse Ox 99.6 F 82 18 141/74 H 97 12/28/19 04:31 12/28/19 07:00 12/28/19 04:31 12/28/19 04:31 12/28/19 04:31 Intake & Output 12/27/19 12/28/19 12/29/19 06:59 06:59 06:59 Intake Total 953 Output Total 300 1100 Balance 653 -1100 Weight 99.3 kg Exam: General appearance: PRESENT: no acute distress. ABSENT: cooperative Eye exam: PRESENT: EOMI, PERRLA Neck exam: ABSENT: meningismus, tenderness, thyromegaly, tracheal deviation Respiratory exam: PRESENT: unlabored. ABSENT: tachypnea, wheezes Cardiovascular exam: ABSENT: tachycardia Vascular exam: PRESENT: normal capillary refill GI/Abdominal exam: PRESENT: soft. ABSENT: tenderness Rectal exam: PRESENT: deferred Extremities exam: ABSENT: clubbing Musculoskeletal exam: ABSENT: deformity Neurological exam: PRESENT: alert, awake Psychiatric exam: PRESENT: other - Expressive aphasia. ABSENT: anxious, agitated Skin exam: ABSENT: erythema, jaundice Results Laboratory Results: 12/28/19 05:56 12/28/19 05:56 12/28/19 12/28/19 12/28/19 04:35 05:56 05:56 WBC 18.5 H RBC 3.29 L Hgb 9.6 L Hct 29.1 L MCV 88 MCH 29.3 MCHC 33.1 RDW 14.8 H Plt Count 315 Seg Neutrophils % Not Reportable Sodium 138.9 Potassium 3.9 Chloride 103 Carbon Dioxide 27 Anion Gap 9 BUN 38 H Creatinine 6.04 H Est GFR ( Amer) 12 L Glucose 169 H Calcium 8.2 L Total Bilirubin 0.7 AST 26 Alkaline Phosphatase 74 Total Protein 5.3 L Albumin 2.5 L Urine Color YELLOW Urine Appearance CLEAR Urine pH 7.0 Ur Specific [place] 1.016 Urine Protein >=500 H Urine Glucose (UA) 150 H Urine Ketones TRACE H Urine Blood NEGATIVE Urine RBC (Auto) 10 20 10/25/20 10/26/20 02:45 16:11 04:25 Creatine Kinase Troponin I 0.048 NT-Pro-B Natriuret Pep 51642 H 77571 H 12634 H 12/25/19 12/25/19 12/25/19 15:17 15:17 20:03 Creatine Kinase 259 H Troponin I 0.198 0.204 NT-Pro-B Natriuret Pep 12/26/19 12/26/19 00:30 08:23 Creatine Kinase Troponin I 0.211 0.160 NT-Pro-B Natriuret Pep Impressions: Carotid Doppler Study 12/23/19 00:00 IMPRESSION: NO HEMODYNAMICALLY SIGNIFICANT STENOSIS. Head MRI 12/23/19 00:00 IMPRESSION: 1. Large left MCA infarct. No intracranial hemorrhage. 2. Diffuse cerebral atrophy and small-vessel ischemic changes. EVIDENCE OF ACUTE STROKE: YES. Lower Extremity CT 12/25/19 00:00 IMPRESSION: 1. Marked diffuse skin thickening and subcutaneous edema involving the ankle and foot most consistent with cellulitis. No focal fluid collection to suggest abscess. No subcutaneous gas. 2. Chronic arthrodesis and surgical fixation at the tibiotalar joint. 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 Findings are stable from previous radiograph. No evidence of acute fracture or destructive bone lesion. 3. Pin fixation at the distal tibia without evidence of hardware complication. 4. Chronic amputations 3rd- 5th digits metatarsals stable in appearance from previous examination. Chronic degenerative change at the 2nd digit metatarsal head appears stable from prior radiograph. Assessment & Plan - Diagnosis (1) End stage renal disease Is this a current diagnosis for this admission?: Yes - Time Anticipated Discharge Disposition: unknown Anticipated Discharge Timeframe: unknown - Plan Summary Plan Summary: 59-year-old male with end-stage renal disease. I again discussed permacath placement with the daughter, Rupa. She has consented to the procedure. I have discussed the case with Dr. Epperson as well as Dr. Hugo today. To OR today for permacath placement. Risks/benefits discussed, informed consent obtained, and all questions answered.
[2019-12-28] MEDS: INSULIN REG, HUMAN 100 UNIT/ML 3 ML VIAL (PYX) SUBCUT SCH ×3 (11:43→21:48)
[2019-12-28] MEDS: CEFTRIAXONE 2 GM/D5W RTU 2 GM/50 ML RTUPB IV SCH (11:47)
[2019-12-28] MEDS ORDERED: BUPIVACAINE HCL 0.25 % INJ/PF (2.5 MG/1 ML) 30 ML VIAL ONE (13:18)
[2019-12-28] MEDS ORDERED: LIDOCAINE 1% INJ-PF (10 MG/ML) 30 ML SDV ONE (13:18)
[2019-12-28] MEDS ORDERED: MIDAZOLAM 2 MG/2 ML INJ ONE (13:20)
[2019-12-28] MEDS ORDERED: FENTANYL CITRATE INJ/PF 100 MCG/2 ML AMPUL ONE (13:20)
[2019-12-28] MEDS ORDERED: PROPOFOL INJ 200 MG/20 ML VIAL IV ONE (13:20)
[2019-12-28] MEDS ORDERED: MEPERIDINE HCL/PF INJ 25 MG/1 ML DISP.SYRIN IV PRN (14:01)
[2019-12-28] MEDS ORDERED: FENTANYL CITRATE INJ/PF 100 MCG/2 ML AMPUL IV PRN ×3 (14:01)
[2019-12-28] MEDS ORDERED: OXYCODONE-ACETAMINOPHEN 5-325 MG TABLET PO PRN ×2 (14:01)
[2019-12-28] MEDS ORDERED: DIPHENHYDRAMINE HCL 50 MG/ML VIAL IV PRN (14:01)
[2019-12-28] MEDS ORDERED: PROMETHAZINE HCL INJ 25 MG/1 ML VIAL IV PRN ×2 (14:01)
[2019-12-28] MEDS ORDERED: MORPHINE SULFATE 10 MG/ML INJ IV PRN (14:01)
--- NOTE | 2019-12-28 14:01 | PDOC PROGRESS REPORT ---
Subjective Progress Note for:: 12/28/19 Subjective:: I am seeing the patient during dialysis this morning. He is calm and sleeping while receiving dialysis. Apparently he has received Haldol. He does still gets agitated. We are still using his temporary dialysis catheter. He was supposed to have a PermCath placed last Saturday but at the last minute the daughter did not consent for it. Dr. Hugo has a spoken to the daughter last Saturday and finally the daughter, Rupa gave her consent for PermCath placement . I spoke to Dr. Tello this morning for PermCath placement. Dr. Tello will speak to the daughter, Rupa. Patient is currently stable and tolerating dialysis well. Reason For Visit: ACUTE HYPOXEMIC RESPIRATORY FAILURE Physical Exam Vital Signs: Temp Pulse Resp BP Pulse Ox 99.6 F 82 18 141/74 H 97 12/28/19 04:31 12/28/19 07:00 12/28/19 04:31 12/28/19 04:31 12/28/19 04:31 Intake & Output 12/27/19 12/28/19 12/29/19 06:59 06:59 06:59 Intake Total 953 Output Total 300 Balance 653 Weight 99.3 kg Vitals during dialysis: Blood pressure 163/83, heart rate of 83, blood flow rate of 300/min and dialysate flow rate of 600 mL/min. Exam: General appearance: PRESENT: no acute distress, cooperative, well-developed, well-nourished Head exam: PRESENT: atraumatic, normocephalic Eye exam: PRESENT: conjunctiva slightly pale, PERRLA. ABSENT: scleral icterus Neck exam: ABSENT: JVD Respiratory exam: PRESENT: Diminished breath sounds. ABSENT: crackles, rales, rhonchi, unlabored, wheezes Cardiovascular exam: PRESENT: Regular rate rhythm -+S1, +S2. ABSENT: diastolic murmur, systolic murmur GI/Abdominal exam: PRESENT: normal bowel sounds, soft. ABSENT: guarding, mass, tenderness Extremities exam: Improving bilateral lower extremity trace edema, left leg lymphedema is also improved, unchanged chronic left foot ulcer Neurological exam: PRESENT: Sleeping but arousable. Skin exam: PRESENT: dry, warm, Results Laboratory Results: 12/28/19 05:56 12/28/19 05:56 11/04/1612/28/19 12/28/19 04:35 05:56 05:56 WBC 18.5 H RBC 3.29 L Hgb 9.6 L Hct 29.1 L MCV 88 MCH 29.3 MCHC 33.1 RDW 14.8 H Plt Count 315 Seg Neutrophils % Not Reportable Sodium 138.9 Potassium 3.9 Chloride 103 Carbon Dioxide 27 Anion Gap 9 BUN 38 H Creatinine 6.04 H Est GFR ( Amer) 12 L Glucose 169 H Calcium 8.2 L Total Bilirubin 0.7 AST 26 Alkaline Phosphatase 74 Total Protein 5.3 L Albumin 2.5 L Urine Color YELLOW Urine Appearance CLEAR Urine pH 7.0 Ur Specific [place] 1.016 Urine Protein >=500 H Urine Glucose (UA) 150 H Urine Ketones TRACE H Urine Blood NEGATIVE Urine RBC (Auto) 12/20/19 12/20/19 12/21/19 02:45 16:11 04:25 Creatine Kinase Troponin I 0.048 NT-Pro-B Natriuret Pep 16990 H 28310 H 48846 H 12/25/19 12/25/19 12/25/19 15:17 15:17 20:03 Creatine Kinase 259 H Troponin I 0.198 0.204 NT-Pro-B Natriuret Pep 12/26/19 12/26/19 00:30 08:23 Creatine Kinase Troponin I 0.211 0.160 NT-Pro-B Natriuret Pep Impressions: Carotid Doppler Study 12/23/19 00:00 IMPRESSION: NO HEMODYNAMICALLY SIGNIFICANT STENOSIS. Head MRI 12/23/19 00:00 IMPRESSION: 1. Large left MCA infarct. No intracranial hemorrhage. 2. Diffuse cerebral atrophy and small-vessel ischemic changes. EVIDENCE OF ACUTE STROKE: YES. Lower Extremity CT 12/25/19 00:00 IMPRESSION: 1. Marked diffuse skin thickening and subcutaneous edema involving the ankle and foot most consistent with cellulitis. No focal fluid collection to suggest abscess. No subcutaneous gas. 2. Chronic arthrodesis and surgical fixation at the tibiotalar joint. 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 Findings are stable from previous radiograph. No evidence of acute fracture or destructive bone lesion. 3. Pin fixation at the distal tibia without evidence of hardware complication. 4. Chronic amputations 3rd- 5th digits metatarsals stable in appearance from previous examination. Chronic degenerative change at the 2nd digit metatarsal head appears stable from prior radiograph. Assessment & Plan - Diagnosis (1) End stage renal disease Is this a current diagnosis for this admission?: Yes Plan: Secondary to diabetic nephropathy with nephrotic range proteinuria. His kidney function has been rapidly deteriorating for the last several months who has now reached end-stage renal disease requiring initiation of renal replacement therapy. Patient's daughter, Rupa Silvestre has given consent to initiate renal replacement therapy, 12/21/2019. She understood the need for initiation of renal replacement therapy and chronic dialysis treatment moving forward unless he has substantial renal recovery and she consented. Dr. Hugo spoke to her last Saturday and she consented to PermCath placement. We will do dialysis today for 2.5 hours, using the patient's temporary dialysis catheter, with 3 potassium bath, blood flow rate of 250 mL per minute, dialysate flow rate of 600 mL per minute, ultrafiltration 1 L as tolerated, no heparin and Retacrit with 10,000 units during dialysis intravenously if blood pressure is better. Patient is currently being monitored closely. I have spoken to Dr. Tello for PermCath placement. (2) Left acute arterial ischemic stroke, MCA (middle cerebral artery) Is this a current diagnosis for this admission?: Yes Plan: Currently very aphasic and at times uncooperative refusing medications although over the weekend it seems like he is taking some of his oral medications. He requires Haldol for agitation. Dr. Hugo has been discussing patient's condition with the daughter. (3) Leukocytosis Is this a current diagnosis for this admission?: Yes Plan: White count has been elevated for the last couple of days. Hospitalist started the patient on IV ceftriaxone and vancomycin. (4) Acute hypoxemic respiratory failure Is this a current diagnosis for this admission?: Yes Plan: Due to acute flash pulmonary edema in a patient with underlying worsening kidney disease. Resolved. 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 Last echocardiogram on May 04, 2019 showed LVEF of 40 to 45%, left ventricle moderately dilated with mild LVH, grade 1/4 diastolic dysfunction, moderate global hypokinesia, biatrial dilation and moderate to severe pulmonary hypertension. Repeat echocardiogram on 12/15/2019 showed EF of 55 to 60% with mild pulmonary hypertension. Improved and currently compensated after initiation of dialysis. (6) Acute pulmonary edema with congestive heart failure Is this a current diagnosis for this admission?: Yes Plan: Resolved with hemodialysis ultrafiltration and diuresis. (7) Diabetic nephropathy Qualifiers: Diabetes mellitus type: type 2 Qualified Code(s): E11.21 - Type 2 diabetes mellitus with diabetic nephropathy Is this a current diagnosis for this admission?: Yes Plan: Associated with nephrotic range proteinuria, 10 g from last outpatient lab. Most likely due to diabetic nephropathy. Serologies including SPEP has been negative previously. (8) Metabolic acidosis Is this a current diagnosis for this admission?: Yes Plan: Resolved on dialysis. (9) Anemia in chronic kidney disease (CKD) Is this a current diagnosis for this admission?: Yes Plan: His iron is very low at less than 10.1, iron saturation cannot be calculated, ferritin is 274 . I gave the patient a dose of IV Injectafer on 12/22/2019. Retacrit on dialysis. (10) Iron deficiency anemia Qualifiers: Iron deficiency anemia type: unspecified iron deficiency Qualified Code(s): D50.9 - Iron deficiency anemia, unspecified Is this a current diagnosis for this admission?: Yes Plan: IV Injectafer x1 dose given 12/22/2019. (11) Hypertension Qualifiers: Hypertension type: renovascular hypertension Qualified Code(s): I15.0 - Renovascular hypertension Is this a current diagnosis for this admission?: Yes Plan: At baseline patient has difficult to control elevated hypertension with his oral medications. Currently suboptimally controlled due to intermittent known intake of oral medications and currently being given IV as needed medications. (12) Chronic kidney disease-mineral and bone disorder Is this a current diagnosis for this admission?: Yes Plan: Phosphorus is 6.2 currently, magnesium of 2.0 and PTH of 349.55. On 12/07/2019 he had a PTH of 642.5 and last of 25-hydroxy vitamin D of less than 4. Started on calcitriol. Continue ergocalciferol. (13) Type 2 diabetes mellitus Qualifiers: Diabetes mellitus fpc insulin use: without intermediate card tender use Diabetes mellitus complication status: with kidney complications Diabetes mellitus complication detail: with chronic kidney disease Chronic kidney disease stage: stage 3 (moderate) Is this a current diagnosis for this admission?: Yes Plan: Controlled.
--- NOTE | 2019-12-28 15:43 | RADIOLOGY REPORT (SQ) ---
EXAM DESCRIPTION: FLUORO/CV PLACEMENT IMAGES COMPLETED DATE/TIME: 12/28/2019 3:22 pm REASON FOR STUDY: PERMCATH PLCCO RIGHT SIDE ASSISTED WITH FLUORO IN OR COMPARISON: None. FLUOROSCOPY TIME: 2.1 minutes Spot images saved to PACS. TECHNIQUE: Intra-operative images acquired during surgical procedure to evaluate progress. NUMBER OF IMAGES: 2 LIMITATIONS: None. FINDINGS: Fluoroscopy was provided for intraoperative procedure. Please refer to the operative repo rt for further discussion. IMPRESSION: IMAGE(S) OBTAINED DURING PROCEDURE. COMMENT: Quality ID [id number]: Final reports for procedures using fluoroscopy that document radiation exp osure indices, or exposure time and number of fluorographic images (if radiation exposure indices are not available) Please consult full operative report of the attending physician for description of the procedure. TECHNICAL DOCUMENTATION: JOB ID: [id number] 2010 [employer]- All Rights Reserved Reading location - IP/workstation name: [email or web address]
[2019-12-28] MEDS: CALCIUM ACETATE 667 MG CAPSULE PO SCH ×2 (16:04→18:24)
[2019-12-28] MEDS: ISOSORBIDE MONONITRATE 60 MG TAB.ER.24H PO SCH (16:04)
[2019-12-28] MEDS: CARVEDILOL 12.5 MG TABLET PO SCH ×2 (16:05→21:48)
[2019-12-28] MEDS: BUMETANIDE 1 MG TABLET PO SCH ×2 (16:05→18:24)
[2019-12-28] MEDS: CALCITRIOL 0.25 MCG CAPSULE PO SCH (16:05)
[2019-12-28] MEDS: NIFEDIPINE 30 MG TAB.ER.24 PO SCH (16:05)
[2019-12-28] MEDS: VALSARTAN 160 MG TABLET PO SCH ×2 (16:05→21:48)
[2019-12-28] MEDS: HYDRALAZINE HCL 50 MG TABLET PO SCH ×2 (16:05→21:48)
[2019-12-28] MEDS: ASPIRIN 81 MG TABLET, CHEWABLE PO SCH (16:05)
--- NOTE | 2019-12-28 17:46 | PDOC PROGRESS REPORT ---
Subjective Progress Note for:: 12/28/19 Subjective:: Mr. Johnathon Garay is a 59-year-old -[place] gentleman with a past medical history of CHF, and CKD. Presented to the ED with severe respiratory distress. He was placed on BiPAP with FiO2 100% ABG ABG revealed a pH of 7.09 PCO2 41.3 PaO2 90.5. He had a BN P 10,400 BUN 45 creatinine 5.54. He failed BiPAP and subsequently was intubated and admitted to the ICU for further management. He was admitted and intubated in the ICU on December 20, 2019 for acute respiratory failure secondary to pulmonary edema. 12/21/19. Patient remained intubated. Nephrology was consulted for initiation of dialysis. HD catheter placed right femoral vein on 12/20 and dialysis was started. 12/22/19. Patient was successfully extubated on 12/21. He was noted to be confused and not really following commands initially thought to be because of sedation for intubation. Surgery was consulted to place a permacath. Covid test ordered and was negative. 12/23/19. Patient continued to be minimally verbal and would not follow command even after 2 days of being extubated. MRI of the brain showed large left MCA infarct. No intracranial hemorrhage. Diffuse cerebral atrophy and small vessel ischemic changes. Carotid Doppler study negative for significant stenosis. 12/24/19. Patient remained stable and was eventually transferred to [facility] on December 24, 2019. 12/25/19. He was seen and examined at bedside, he answers with a mumble but has very minimal verbal output. Predominant right-sided weakness noted. He also spiked a fever of 100.1 today. Left lower leg noted to be swollen and erythematous. CT of the left lower extremity showed findings consistent with cellulitis, no focal fluid collection to suggest abscess. No subcutaneous gas. Blood culture was obtained and he was started on vancomycin for cellulitis. He successfully underwent dialysis today. 12/26/19. He was seen and examined at bedside.He seems to be talking more today but still does not make much sense and cannot follow command. He had episodes of agitation. ativan was given. Afebrile. Appetite good 12/27/19. He was seen and examined at bedside. He was put on O2 due to periods of desaturation . Per review of nurses notes he was also very agitated last night, pulling out lines and trying to get ou of bed. He was given thorazine and ativan. I spoke to her daughter Rupa yesterday and updated her of her father's status and the need for permacath for dialysis. She gave verbal consent for permacath placement. Discussed with her that with the large stroke, and he recently got on dialysis and CHF his recovery will be long and hard. 12/28/19. He was seen and examined at bedside. He still has periods of agitation. Cannot really articulate if he has any pain. WBC noted to be increased today 18.5, CXR improving basilar aeration, urine with trace leukocyte Estrace 65 WBC. Urine culture pending. He also has a wound on his left heel. He was started on ceftriaxone and vancomycin. Palliative care consulted to guide the family during this time since he has just been put on dialysis and has sustained a significant cognitive impairment from his recent stroke. Reason For Visit: ACUTE HYPOXEMIC RESPIRATORY FAILURE Physical Exam Vital Signs: Temp Pulse Resp BP Pulse Ox 98.4 F 86 20 155/78 H 90 L 12/28/19 15:54 12/28/19 15:54 12/28/19 15:54 12/28/19 15:54 12/28/19 15:54 Intake & Output 12/27/19 12/28/19 12/29/19 06:59 06:59 06:59 Intake Total 953 250 Output Total 300 1100 Balance 653 -850 Weight 99.3 kg General appearance: PRESENT: mild distress, other - Has periods of agitation Head exam: PRESENT: atraumatic, normocephalic Eye exam: PRESENT: EOMI, PERRLA Mouth exam: PRESENT: moist Neck exam: PRESENT: full ROM Respiratory exam: PRESENT: chest wall tenderness, symmetrical, unlabored Cardiovascular exam: PRESENT: RRR, +S1, +S2 Pulses: PRESENT: +2 pedal pulses bilateral GI/Abdominal exam: PRESENT: normal bowel sounds, soft. ABSENT: rebound, tenderness Extremities exam: PRESENT: other - seems weaker on his right leg but its difficult to assess since he does not follow command Musculoskeletal exam: PRESENT: other - Has a wound with a necrotic base bottom of left foot , no pus draining Neurological exam: ABSENT: oriented to person, oriented to place, oriented to time Psychiatric exam: PRESENT: agitated Skin exam: PRESENT: normal color Results Laboratory Results: 12/28/19 05:56 11/02/20 05:56 12/28/19 12/28/19 12/28/19 04:35 05:56 05:56 WBC 18.5 H RBC 3.29 L Hgb 9.6 L Hct 29.1 L MCV 88 MCH 29.3 MCHC 33.1 RDW 14.8 H Plt Count 315 Seg Neutrophils % Not Reportable Sodium 138.9 Potassium 3.9 Chloride 103 Carbon Dioxide 27 Anion Gap 9 BUN 38 H Creatinine 6.04 H Est GFR ( Amer) 12 L Glucose 169 H Calcium 8.2 L Total Bilirubin 0.7 AST 26 Alkaline Phosphatase 74 Total Protein 5.3 L Albumin 2.5 L Urine Color YELLOW Urine Appearance CLEAR Urine pH 7.0 Ur Specific [place] 1.016 Urine Protein >=500 H Urine Glucose (UA) 150 H Urine Ketones TRACE H Urine Blood NEGATIVE Urine RBC (Auto) 12/20/19 12/20/19 12/21/19 02:45 16:11 04:25 Creatine Kinase Troponin I 0.048 NT-Pro-B Natriuret Pep 92979 H 68916 H 88888 H 12/25/19 12/25/19 12/25/19 15:17 15:17 20:03 Creatine Kinase 259 H Troponin I 0.198 0.204 NT-Pro-B Natriuret Pep 12/26/19 12/26/19 00:30 08:23 Creatine Kinase Troponin I 0.211 0.160 NT-Pro-B Natriuret Pep Impressions: Carotid Doppler Study 12/23/19 00:00 IMPRESSION: NO HEMODYNAMICALLY SIGNIFICANT STENOSIS. Head MRI 12/23/19 00:00 IMPRESSION: 1. Large left MCA infarct. No intracranial hemorrhage. 2. Diffuse cerebral atrophy and small-vessel ischemic changes. EVIDENCE OF ACUTE STROKE: YES. Lower Extremity CT 12/25/19 00:00 IMPRESSION: 1. Marked diffuse skin thickening and subcutaneous edema involving the ankle and foot most consistent with cellulitis. No focal fluid collection to suggest abscess. No subcutaneous gas. 2. Chronic arthrodesis and surgical fixation at the tibiotalar joint. 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 Findings are stable from previous radiograph. No evidence of acute fracture or destructive bone lesion. 3. Pin fixation at the distal tibia without evidence of hardware complication. 4. Chronic amputations 3rd- 5th digits metatarsals stable in appearance from previous examination. Chronic degenerative change at the 2nd digit metatarsal head appears stable from prior radiograph. Guidance Fluoroscopy 12/28/19 00:00 IMPRESSION: IMAGE(S) OBTAINED DURING PROCEDURE. Assessment and Plan - Diagnosis (1) Leukocytosis Qualifiers: Leukocytosis type: unspecified Qualified Code(s): D72.829 - Elevated white blood cell count, unspecified Is this a current diagnosis for this admission?: Yes Plan: - WBC 16.9>18.5 - UA showed +ve leukocyte esterase, WBC 65 - CXR no new pneumonia - source cellulitis from leg and UTI - On ceftri and Vanc - repeat Blood culture pending, urine culture pending (2) Acute hypoxemic respiratory failure Is this a current diagnosis for this admission?: Yes Plan: -Secondary to pulmonary edema and acute CHF exacerbation from CKD stage V -Intubated on 12/19 -Extubated on 12/21 -repeat CXR improving basilar aeration. Persistent perihilar edema and vascular congestion. No pneumothorax. - wean off O2 as tolerated -Continue to monitor (3) ESRD (end stage renal disease) on dialysis Is this a current diagnosis for this admission?: Yes Plan: -Dialysis initiated on 12/20. ESRD secondary to diabetic nephropathy with nephrotic range proteinuria -on calcitriol and Bumex -Retacrit with dialysis -got a permacath today. Right groin catheter ordered to be taken out -Nephrology following (4) Left acute arterial ischemic stroke, MCA (middle cerebral artery) Is this a current diagnosis for this admission?: Yes Plan: -Patient unable to follow command post extubation, with aphasia -MRI brain 12/22 showed large left MCA infarct -Carotid ultrasound no significant stenosis -Echo showed EF of 55 to 60% normal LV systolic function, minimal pericardial effusion -Patient already on aspirin and statin -Continue medication for hypertension - he would need extensive rehab. Palliative care consulted as he has a lot of co-morbidities that will significantly impact his life in the future. (5) Cellulitis of left lower extremity Is this a current diagnosis for this admission?: Yes Plan: -Noted with erythema swelling and tenderness left lower leg -CT left lower legs showed findings consistent with cellulitis no subcutaneous gas - blood culture negative - also with necrotic wound on his left heel, dressing being changed by nurses. -Started on vancomycin (6) Acute on chronic combined systolic and diastolic congestive heart failure Is this a current diagnosis for this admission?: Yes Plan: - BNP 13,800 -On bumex, carvedilol, JOANN inhibitor and statin -Being followed by Dr. King in the outpatient setting -Plan for ICD placement before current admission. Please consult Dr. king for any cardio concern (7) Acute pulmonary edema with congestive heart failure Is this a current diagnosis for this admission?: Yes Plan: -improved with dialysis and Bumex - continue to monitor (8) Type 2 diabetes mellitus Qualifiers: Diabetes mellitus half-way insulin use: without tank terminal gauger use Diabetes mellitus complication status: with kidney complications Diabetes mellitus complication detail: with chronic kidney disease Chronic kidney disease stage: stage 3 (moderate) Is this a current diagnosis for this admission?: Yes Plan: -Accu-Cheks -Sliding scale insulin (9) Severe uncontrolled hypertension Is this a current diagnosis for this admission?: Yes Plan: -On carvedilol, nifedipine, valsartan, Imdur, Bumex, as needed hydralazine - blood pressure still very labile but seems to improve whenever he gets dialysis (10) Elevated troponin Is this a current diagnosis for this admission?: Yes Plan: -Per nursing noted with EKG changes on clinical research monitor -not complaining of chest pain. trop leak likely due to elevated BP with ESRD -Lead EKG reviewed no significant change from previous, no ST elevation - trop 0.198>0.21>0.16 in the setting of ESRD on dialysis (11) Delirium due to another medical condition Is this a current diagnosis for this admission?: Yes Plan: - this is likely 2/2 to recent L MCA stroke - would use redirection and reduction of stimulus at night (windows down, TV off, optimize VS check interval) to manage - haldol as needed - restraints only if above has not worked - Plan Summary Summary: Patient is a 59-year-old male history of CKD recently started on dialysis, CHF, hypertension, hyperlipidemia, type 2 diabetes who was admitted in the ICU due to acute respiratory failure secondary to pulmonary edema. He also suffered a left MCA stroke during this admission. Since then he has been aphasic and agitated. He also is being treated for cellulitis of his left leg and chronic wound on his left heel. Palliative care was consulted for this patient since he had several life limiting comorbidities. Discharge planning consulted for disposition since he is severely impaired from the stroke and he lives with his who is deaf and mute. He will need extensive rehab. - Time Time Spent with patient: 35 or more minutes Anticipated Discharge Disposition: [facility] Facility Anticipated Discharge Timeframe: to be determined
[2019-12-28] MEDS: VANCOMYCIN HCL 750 MG in DEXTROSE 5%-WATER 250 ML IV SCH (18:32)
--- NOTE | 2019-12-28 19:06 | Operative Report ---
Nonrecallable Operative Report DATE OF SURGERY: 12/28/19 PREOPERATIVE DIAGNOSIS: Renal failure POSTOPERATIVE DIAGNOSIS: same as above OPERATION: 1. Ultrasound-guided central venous puncture. 2. Right internal jugular vein permacath placement. SURGEON: EMIGDIO YA ANESTHESIA: LMAC TISSUE REMOVED OR ALTERED: None COMPLICATIONS: None apparent ESTIMATED BLOOD LOSS: Minimal PROCEDURE: Drains/implants: Right internal jugular vein permacath placement. Procedure in detail: After informed consent was obtained, the patient was brought into the operating room and laid in the Trendelenburg position. The area of the neck and chest were prepped and draped in a normal sterile fashion. An ultrasound was used to identify the right internal jugular vein. It was compressible with normal flow. The right IJ was then cannulated using the supplied access needle. Dark venous, nonpulsatile blood was returned in the s yringe. The wire was then inserted into the vein, easily. The wire was confirmed to be within the lumen of the vein using the ultrasound as well as fluoroscopy. Picture documentation was printed and placed on the chart. The catheter was then tunneled from a separate incision in the infra clavicular position, up to the needle insertion site. The dilator and breakaway sheath were then inserted over the wire. The dilator and wire were removed, leaving the breakaway sheath within the SVC. The catheter was inserted into the sheath. The sheath was cracked and pulled away, leaving the catheter within the SVC. The catheter was then sutured to the skin. It was aspirated and flushed with heparin. A dressing was placed, and the procedure was concluded. All sponge, instrument, and needle counts were correct x2. Condition: Stable.
[2019-12-28] MEDS: ATORVASTATIN CALCIUM 40 MG TABLET PO SCH (21:48)
[2019-12-29] MEDS: HALOPERIDOL LACTATE INJ 5 MG/1 ML VIAL IV PRN (01:34)
[2019-12-29] MEDS: HYDRALAZINE HCL 50 MG TABLET PO SCH ×3 (05:36→21:55)
[2019-12-29] MEDS: PANTOPRAZOLE SODIUM 20 MG TABLET.DR PO SCH (05:37)
[2019-12-29] MEDS: HEPARIN SOD (PORCINE) 5,000 UNIT/ML 1 ML VIAL SUBCUT SCH ×3 (05:37→21:53)
[2019-12-29 06:42] LABS: ABSOLUTE BASOPHILS # (AUTO) 0.1 10^3/uL (0.0-0.2); ABSOLUTE EOSINOPHILS # (AUTO) 0.3 10^3/uL (0.0-0.6); ABSOLUTE LYMPHOCYTES (AUTO) 1.1 10^3/uL (0.5-4.7); ABSOLUTE MONOCYTES (AUTO) 1.1 10^3/uL (0.1-1.4); ABSOLUTE NEUT (AUTO) 14.5 10^3/uL (1.7-8.2); BASOPHILS % (AUTO) 0.5 % (0-2); EOSINOPHILS % (AUTO) 1.7 % (0-6); HEMATOCRIT 30.1 % (37.9-51.0); LYMPHOCYTES % (AUTO) 6.4 % (13-45); MEAN CORPUSCULAR HEMOGLOBIN 29.2 pg (27.0-33.4); MEAN CORPUSCULAR HGB CONC 33.2 g/dL (32.0-36.0); MEAN CORPUSCULAR VOLUME 88 fl (80-97); MONOCYTES % (AUTO) 6.7 % (3-13); PLATELET COUNT 333 10^3/uL (150-450); RED BLOOD COUNT 3.43 10^6/uL (4.35-5.55); SEGMENTED NEUTROPHILS % (AUTO) 84.7 % (42-78); TOTAL CELLS COUNTED % (AUTO) 100 %; WHITE BLOOD COUNT 17.1 10^3/uL (4.0-10.5)
[2019-12-29 07:07] LABS: ALBUMIN 2.8 g/dL (3.5-5.0); ALKALINE PHOSPHATASE 86 U/L (38-126); ANION GAP 11 (5-19); ASPARTATE AMINO TRANSFERASE 28 U/L (17-59); BILIRUBIN,DIRECT 0.2 mg/dL (0.0-0.4); BILIRUBIN,TOTAL 0.4 mg/dL (0.2-1.3); BLOOD UREA NITROGEN 31 mg/dL (7-20); CALCIUM 8.4 mg/dL (8.4-10.2); CARBON DIOXIDE 27 mmol/L (22-30); CHLORIDE 101 mmol/L (98-107); GLUCOSE 153 mg/dL (75-110); POTASSIUM 4.2 mmol/L (3.6-5.0); TOTAL PROTEIN 6.1 g/dL (6.3-8.2)
[2019-12-29] MEDS: ISOSORBIDE MONONITRATE 60 MG TAB.ER.24H PO SCH (07:51)
[2019-12-29] MEDS: INSULIN REG, HUMAN 100 UNIT/ML 3 ML VIAL (PYX) SUBCUT SCH ×4 (07:51→21:47)
[2019-12-29] MEDS: CALCIUM ACETATE 667 MG CAPSULE PO SCH ×3 (07:51→17:46)
[2019-12-29] MEDS: NIFEDIPINE 30 MG TAB.ER.24 PO SCH (09:23)
[2019-12-29] MEDS: BUMETANIDE 1 MG TABLET PO SCH ×2 (09:23→17:46)
[2019-12-29] MEDS: CALCITRIOL 0.25 MCG CAPSULE PO SCH (09:24)
[2019-12-29] MEDS: CARVEDILOL 12.5 MG TABLET PO SCH ×2 (09:24→21:53)
[2019-12-29] MEDS: ASPIRIN 81 MG TABLET, CHEWABLE PO SCH (09:24)
[2019-12-29] MEDS: CEFTRIAXONE 2 GM/D5W RTU 2 GM/50 ML RTUPB IV SCH (09:24)
[2019-12-29] MEDS: VALSARTAN 160 MG TABLET PO SCH ×2 (09:24→21:53)
[2019-12-29] MEDS: DIVALPROEX SODIUM 250 MG TAB.SR.24H PO SCH ×2 (10:48→21:53)
--- NOTE | 2019-12-29 18:10 | PDOC PROGRESS REPORT ---
Subjective Progress Note for:: 12/29/19 Subjective:: Patient is a 59-year-old male with a past medical history significant for combined systolic and diastolic CHF, hypertension, hyperlipidemia, PVD, pneumonia, respiratory failure, DM 2, GERD, arthritis, CKD, anemia, and obesity who was admitted 12/20/2019 to the certified first assistant service for acute respiratory failure secondary to CHF exacerbation subsequently found to have a large left MCA infarct. He was successfully extubated 1027. Downgraded to the hospitalist service 1029. Patient was seen on morning rounds. He is found resting in the recliner, comfortably, on room air. He has a significant stutter and becomes quite frustrated; he was easily redirected when I acknowledged his frustration. He was then able to speak clearly for a brief moment; asked for me to take him for a walk in the hallway. He was advised that physical therapy will work with him again today. ROS was limited secondary to communication barriers, however, he was able to deny pain, shortness of breath, and nausea. No other concerns expressed by patient. No concerns per nursing. Reason For Visit: ACUTE HYPOXEMIC RESPIRATORY FAILURE Physical Exam Vital Signs: Temp Pulse Resp BP Pulse Ox 97.5 F 85 19 154/70 H 97 12/29/19 07:23 12/29/19 07:23 12/29/19 07:23 12/29/19 07:23 12/29/19 07:23 Intake & Output 12/28/19 12/29/19 12/30/19 06:59 06:59 06:59 Intake Total 953 250 660 Output Total 300 1100 Balance 653 -850 660 Weight 99.3 kg 100.2 kg 100.2 kg General appearance: PRESENT: no acute distress, cooperative, obese, well-d eveloped, well-nourished Head exam: PRESENT: atraumatic, normocephalic Eye exam: PRESENT: conjunctiva pink, EOMI, PERRLA. ABSENT: scleral icterus Mouth exam: PRESENT: moist, tongue midline Respiratory exam: PRESENT: clear to auscultation liseth, symmetrical, unlabored. ABSENT: rales, rhonchi, wheezes Cardiovascular exam: PRESENT: RRR, +S1, +S2. ABSENT: diastolic murmur, rubs, systolic murmur Vascular exam: PRESENT: normal capillary refill Extremities exam: PRESENT: full ROM, +1 edema - LLE. ABSENT: calf tenderness, clubbing, pedal edema Neurological exam: PRESENT: alert, awake, oriented to person, oriented to place, other - Right hemiparesis upper and lower extremity; improved. Conductive a phasia noted. ABSENT: motor sensory deficit Psychiatric exam: PRESENT: appropriate affect - appropriately frustrated r/t communication barriers, normal mood. ABSENT: homicidal ideation, suicidal ideation Skin exam: PRESENT: dry, warm. ABSENT: cyanosis, rash Results Laboratory Results: 12/29/19 05:50 12/29/19 05:50 12/29/19 12/29/19 05:50 05:50 WBC 17.1 H RBC 3.43 L Hgb 10.0 L Hct 30.1 L MCV 88 MCH 29.2 MCHC 33.2 RDW 15.0 H Plt Count 333 Seg Neutrophils % 84.7 H Sodium 139.2 Potassium 4.2 Chloride 101 Carbon Dioxide 27 Anion Gap 11 BUN 31 H Creatinine 5.07 H Est GFR ( Amer) 14 L Glucose 153 H Calcium 8.4 Total Bilirubin 0.4 AST 28 Alkaline Phosphatase 86 Total Protein 6.1 L Albumin 2.8 L 12/20/19 12/20/19 12/21/19 02:45 16:11 04:25 Creatine Kinase Troponin I 0.048 NT-Pro-B Natriuret Pep 79553 H 88754 H 28523 H 12/25/19 12/25/19 12/25/19 15:17 15:17 20:03 Creatine Kinase 259 H Troponin I 0.198 0.204 NT-Pro-B Natriuret Pep 12/26/19 12/26/19 00:30 08:23 Creatine Kinase Troponin I 0.211 0.160 NT-Pro-B Natriuret Pep Impressions: Carotid Doppler Study 12/23/19 00:00 IMPRESSION: NO HEMODYNAMICALLY SIGNIFICANT STENOSIS. Head MRI 12/23/19 00:00 IMPRESSION: 1. Large left MCA infarct. No intracranial hemorrhage. 2. Diffuse cerebral atrophy and small-vessel ischemic changes. EVIDENCE OF ACUTE STROKE: YES. Lower Extremity CT 12/25/19 00:00 IMPRESSION: 1. Marked diffuse skin thickening and subcutaneous edema involving the ankle and foot most consistent with cellulitis. No focal fluid collection to suggest abscess. No subcutaneous gas. 2. Chronic arthrodesis and surgical fixation at the tibiotalar joint. 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 Findings are stable from previous r adiograph. No evidence of acute fracture or destructive bone lesion. 3. Pin fixation at the distal tibia without evidence of hardware complication. 4. Chronic amputations 3rd- 5th digits metatarsals stable in appearance from previous examination. Chronic degenerative change at the 2nd digit metatarsal head appears stable from prior radiograph. Guidance Fluoroscopy 12/28/19 00:00 IMPRESSION: IMAGE(S) OBTAINED DURING PROCEDURE. Assessment and Plan - Diagnosis (1) Cellulitis of left lower extremity Is this a current diagnosis for this admission?: Yes Plan: -Noted with erythema swelling and tenderness left lower leg -CT left lower legs showed findings consistent with cellulitis no subcutaneous gas Blood cultures have no growth at 72 and 24 hours. 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 Pseudomonas was sensitive to fluoroquinolones. Empirically placed on IV vancomycin and ceftriaxone; day #2. Consider surgical evaluation of chronic left foot wound. 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 Now w/ permcath Nephrology consulted Calcitriol and Bumex per nephrology Retacrit with dialysis per nephrology (3) Left acute arterial ischemic stroke, MCA (middle cerebral artery) Is this a current diagnosis for this admission?: Yes Plan: -MRI brain 12/22 showed large left MCA infarct -Carotid ultrasound no significant stenosis -Echo showed EF of 55 to 60% normal LV systolic function, minimal pericardial effusion Patient already on aspirin and statin Continue medication for hypertension Will evaluate for possible Acute Rehab admission; preferred over SNF as patient had prior high function PT/OT/ST consultations. Trial depakote for agitation, although today it appears that his agitation is actually expression of frustration due to communication barriers. (4) Severe uncontrolled hypertension Is this a current diagnosis for this admission?: Yes Plan: Labile blood pressures; overall improved. -On carvedilol, nifedipine, valsartan, Imdur, Bumex, as needed hydralazine Consider clonidine. Nephrology is consulted. (5) Acute on chronic combined systolic and diastolic congestive heart failure Is this a current diagnosis for this admission?: Yes Plan: proBNP 10k-> 16k-> 13,800; baseline approximately 5k -Being followed by Dr. King in the outpatient setting; low threshold for inpatient consultation. -Plan for ICD placement before current admission. Continue home dose carvedilol, hydralazine, isosorbide, Procardia, valsartan. Continue daily aspirin and statin therapy. Continue diuresis with Bumex. Resume hemodialysis per nephrology. Cardiac diet. Daily weights, strict I&O's. (6) Acute pulmonary edema with congestive heart failure Is this a current diagnosis for this admission?: Yes Plan: -improved with dialysis and Bumex Now maintaining oxygen saturations on room air. (7) Type 2 diabetes mellitus Qualifiers: Diabetes mellitus dedicated intermodal truck driver insulin use: without dedicated intermodal truck driver use Diabetes mellitus complication status: with kidney complications Diabetes mellitus complication detail: with chronic kidney disease Chronic kidney disease stage: on chronic dialysis Qualified Code(s): E11.22 - Type 2 diabetes mellitus with diabetic chronic kidney disease; N18.6 - End stage renal disease; Z99.2 - Dependence on renal dialysis Is this a current diagnosis for this admission?: Yes Plan: A1c 5.4% (10/20/2019) Holding oral medications while admitted. Patient is placed on a consistent carb diet. Accu-Cheks before meals and at bedtime with Humalog for sliding scale coverage. Hypoglycemia protocol in place. (8) Acute hypoxemic respiratory failure Is this a current diagnosis for this admission?: Yes Plan: Resolved; no maintaining oxygen saturations on room air. -Secondary to pulmonary edema and acute CHF exacerbation from CKD stage V -Intubated on 12/19 -Extubated on 12/21 -repeat CXR improving basilar aeration. Persistent perihilar edema and vascular congestion. No pneumothorax. Encourage pulmonary toilet with frequent position changes, incentive spirometer, and early ambulation. (9) Elevated troponin Is this a current diagnosis for this admission?: Yes Plan: -Per nursing noted with EKG changes on compliance monitor -not complaining of chest pain. trop leak likely due to elevated BP with ESRD -Lead EKG reviewed no significant change from previous, no ST elevation - trop 0.198>0.21>0.16 in the setting of ESRD on dialysis - Time Time Spent with patient: 35 or more minutes Medications reviewed and adjusted accordingly: Yes Anticipated Discharge Disposition: Acute rehab Anticipated Discharge Timeframe: undetermined
[2019-12-29] MEDS: ATORVASTATIN CALCIUM 40 MG TABLET PO SCH (21:55)
[2019-12-30] MEDS ORDERED: NORMAL SALINE 1000 ML 1,000 ML IV PRN (05:00)
[2019-12-30] MEDS ORDERED: HEPARIN SOD (PORCINE) 1,000 UNIT/ML 10 ML VIAL IV PRN (05:00)
[2019-12-30] MEDS: HEPARIN SOD (PORCINE) 5,000 UNIT/ML 1 ML VIAL SUBCUT SCH ×3 (05:52→22:06)
[2019-12-30] MEDS: HYDRALAZINE HCL 50 MG TABLET PO SCH ×3 (05:52→22:06)
[2019-12-30] MEDS: PANTOPRAZOLE SODIUM 20 MG TABLET.DR PO SCH (05:52)
[2019-12-30 06:54] LABS: ABSOLUTE BASOPHILS # (AUTO) 0.1 10^3/uL (0.0-0.2); ABSOLUTE EOSINOPHILS # (AUTO) 0.3 10^3/uL (0.0-0.6); ABSOLUTE NEUT (AUTO) 11.2 10^3/uL (1.7-8.2); BASOPHILS % (AUTO) 0.9 % (0-2); HEMATOCRIT 28.3 % (37.9-51.0); HEMOGLOBIN 9.5 g/dL (13.5-17.0); LYMPHOCYTES % (AUTO) 7.3 % (13-45); MEAN CORPUSCULAR HGB CONC 33.4 g/dL (32.0-36.0); MEAN CORPUSCULAR VOLUME 87 fl (80-97); MONOCYTES % (AUTO) 7.6 % (3-13); PLATELET COUNT 329 10^3/uL (150-450); RED BLOOD COUNT 3.26 10^6/uL (4.35-5.55); RED CELL DISTRIBUTION WIDTH 14.4 % (11.5-14.0); SEGMENTED NEUTROPHILS % (AUTO) 82.2 % (42-78); TOTAL CELLS COUNTED % (AUTO) 100 %; WHITE BLOOD COUNT 13.7 10^3/uL (4.0-10.5)
[2019-12-30 07:24] LABS: VANCOMYCIN,TROUGH 12.4 ug/mL (5.0-20.0)
[2019-12-30 07:30] LABS: ALBUMIN 2.7 g/dL (3.5-5.0); ALKALINE PHOSPHATASE 90 U/L (38-126); ANION GAP 9 (5-19); ASPARTATE AMINO TRANSFERASE 28 U/L (17-59); BILIRUBIN,DIRECT 0.2 mg/dL (0.0-0.4); BILIRUBIN,TOTAL 0.3 mg/dL (0.2-1.3); BLOOD UREA NITROGEN 36 mg/dL (7-20); CALCIUM 8.3 mg/dL (8.4-10.2); CARBON DIOXIDE 28 mmol/L (22-30); CHLORIDE 98 mmol/L (98-107); GLUCOSE 173 mg/dL (75-110); POTASSIUM 3.9 mmol/L (3.6-5.0)
[2019-12-30] MEDS ORDERED: EPOETIN ALFA-EPBX 2,000 UNIT, EPOETIN ALFA-EPBX 3,000 UNIT in SYRINGE, DISPOSABLE, 1 EACH IV PRN (08:00)
[2019-12-30] MEDS: NIFEDIPINE 30 MG TAB.ER.24 PO SCH (11:25)
[2019-12-30] MEDS: CALCITRIOL 0.25 MCG CAPSULE PO SCH (11:26)
[2019-12-30] MEDS: CARVEDILOL 12.5 MG TABLET PO SCH ×2 (11:26→22:06)
[2019-12-30] MEDS: DIVALPROEX SODIUM 250 MG TAB.SR.24H PO SCH ×2 (11:27→22:06)
[2019-12-30] MEDS: BUMETANIDE 1 MG TABLET PO SCH ×2 (11:27→18:19)
[2019-12-30] MEDS: ISOSORBIDE MONONITRATE 60 MG TAB.ER.24H PO SCH (11:27)
[2019-12-30] MEDS: ASPIRIN 81 MG TABLET, CHEWABLE PO SCH (11:27)
[2019-12-30] MEDS: INSULIN REG, HUMAN 100 UNIT/ML 3 ML VIAL (PYX) SUBCUT SCH ×4 (11:28→21:30)
[2019-12-30] MEDS: CALCIUM ACETATE 667 MG CAPSULE PO SCH ×3 (11:28→18:19)
[2019-12-30] MEDS: CEFTRIAXONE 2 GM/D5W RTU 2 GM/50 ML RTUPB IV SCH (11:28)
[2019-12-30] MEDS: VALSARTAN 160 MG TABLET PO SCH ×2 (11:35→22:06)
[2019-12-30] MEDS: HALOPERIDOL LACTATE INJ 5 MG/1 ML VIAL IV PRN (18:23)
--- NOTE | 2019-12-30 19:22 | PDOC PROGRESS REPORT ---
Subjective Progress Note for:: 12/30/19 Subjective:: Patient is a 59-year-old male with a past medical history significant for combined systolic and diastolic CHF, hypertension, hyperlipidemia, PVD, pneumonia, respiratory failure, DM 2, GERD, arthritis, CKD, anemia, and obesity who was admitted 12/20/2019 to the social service manager service for acute respiratory failure secondary to CHF exacerbation subsequently found to have a large left MCA infarct. He was successfully extubated 1027. Downgraded to the hospitalist service 1029. Patient was seen on afternoon rounds. He is found ambulating in his room, comfortably, on room air. Speech is improved; able to say 2-3 words clearly. There is a continued delay in his responses and it is sometimes difficult to understand whether or not he is communicating effectively/appropriately. Patient tells me know when he is asked if he is in any pain. Otherwise, ROS was limited secondary to communication barriers. No concerns expressed by patient. Nursing reports that the patient has been ambulating in the hallways quite a bit today; he has been difficult to redirect to return to his room. Continues to have some impulsive behaviors. Reason For Visit: ACUTE HYPOXEMIC RESPIRATORY FAILURE Physical Exam Vital Signs: Temp Pulse Resp BP Pulse Ox 98.1 F 73 18 136/66 H 99 12/30/19 10:00 12/30/19 03:54 12/30/19 03:54 12/30/19 03:54 12/30/19 03:54 Intake & Output 12/29/19 12/30/19 12/31/19 06:59 06:59 06:59 Intake Total 806 372 5659 Output Total 1100 2000 Balance -850 660 -950 Weight 100.2 kg 97.5 kg General appearance: PRESENT: no acute distress, obese, well-developed Head exam: PRESENT: atraumatic, normocephalic Eye exam: PRESENT: conjunctiva pink, EOMI, PERRLA. ABSENT: scleral icterus Mouth exam: PRESENT: moist, tongue midline Respiratory exam: PRESENT: clear to auscultation liseth, symmetrical, unlabored, other - Room air. ABSENT: rales, rhonchi, wheezes Cardiovascular exam: PRESENT: RRR. ABSENT: diastolic murmur, rubs, systolic murmur Vascular exam: PRESENT: normal capillary refill Extremities exam: PRESENT: full ROM, +1 edema - LLE. ABSENT: calf tenderness, clubbing, pedal edema Musculoskeletal exam: PRESENT: ambulatory Neurological exam: PRESENT: alert, awake, oriented to person, oriented to place, CN II-XII grossly intact, aphasic, other - Right hemiparesis upper and lower extremity; improved. Conductive aphasia noted; improved today.. ABSENT: motor sensory deficit Psychiatric exam: PRESENT: appropriate affect, normal mood. ABSENT: homicidal ideation, suicidal ideation Skin exam: PRESENT: dry, warm, other - Left lateral plantar foot wound (POA) with granulation tissue to the base. No surrounding erythema. No drainage.. ABSENT: cyanosis, intact, rash Results Laboratory Results: 12/30/19 06:09 12/30/19 06:09 12/30/19 12/30/19 06:09 06:09 WBC 13.7 H RBC 3.26 L Hgb 9.5 L Hct 28.3 L MCV 87 MCH 29.0 MCHC 33.4 RDW 14.4 H Plt Count 329 Seg Neutrophils % 82.2 H Sodium 134.8 L Potassium 3.9 Chloride 98 Carbon Dioxide 28 Anion Gap 9 BUN 36 H Creatinine 5.74 H Est GFR ( Amer) 12 L Glucose 173 H Calcium 8.3 L Total Bilirubin 0.3 AST 28 Alkaline Phosphatase 90 Total Protein 6.0 L Albumin 2.7 L 12/25/19 18:48 Blood Blood Culture - Final NO GROWTH IN 5 DAYS 12/25/19 18:30 Blood Blood Culture - Final NO GROWTH IN 5 DAYS 12/28/19 04:35 Catheterized Urine Urine Culture - Final Pseudomonas Aeruginosa 12/20/19 12/20/19 12/21/19 02:45 16:11 04:25 Creatine Kinase Troponin I 0.048 NT-Pro-B Natriuret Pep 33638 H 70741 H 14981 H 12/25/19 12/25/19 12/25/19 15:17 15:17 20:03 Creatine Kinase 259 H Troponin I 0.198 0.204 NT-Pro-B Natriuret Pep 12/26/19 12/26/19 00:30 08:23 Creatine Kinase Troponin I 0.211 0.160 NT-Pro-B Natriuret Pep Impressions: Carotid Doppler Study 12/23/19 00:00 IMPRESSION: NO HEMODYNAMICALLY SIGNIFICANT STENOSIS. Head MRI 12/23/19 00:00 IMPRESSION: 1. Large left MCA infarct. No intracranial hemorrhage. 2. Diffuse cerebral atrophy and small-vessel ischemic changes. EVIDENCE OF ACUTE STROKE: YES. Lower Extremity CT 12/25/19 00:00 IMPRESSION: 1. Marked diffuse skin thickening and subcutaneous edema involving the ankle and foot most consistent with cellulitis. No focal fluid collection to suggest abscess. No subcutaneous gas. 2. Chronic arthrodesis and surgical fixation at the tibiotalar joint. 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 Findings are stable from previous radiograph. No evidence of acute fracture or destructive bone lesion. 3. Pin fixation at the distal tibia without evidence of hardware complication. 4. Chronic amputations 3rd- 5th digits metatarsals stable in appearance from previous examination. Chronic degenerative change at the 2nd digit metatarsal head appears stable from prior radiograph. Guidance Fluoroscopy 12/28/19 00:00 IMPRESSION: IMAGE(S) OBTAINED DURING PROCEDURE. Assessment and Plan - Diagnosis (1) Cellulitis of left lower extremity Is this a current diagnosis for this admission?: Yes Plan: Improved; edema is decreased. No noted erythema. Left plantar surface foot wound appears to be healthy with granulation tissue. -CT left lower legs showed findings consistent with cellulitis no subcutaneous gas Blood cultures have no growth at 48 hours and 5 days. 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 Pseudom onas was sensitive to fluoroquinolones. Empirically placed on IV vancomycin and ceftriaxone; day #3. We will plan to transition to oral antibiotic therapy tomorrow if WBC is stable and patient continues to demonstrate clinical improvement. 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 Now w/ permcat Nephrology consulted Calcitriol and Bumex per nephrology Retacrit with dialysis per nephrology (3) Left acute arterial ischemic stroke, MCA (middle cerebral artery) Is this a current diagnosis for this admission?: Yes Plan: -MRI brain 12/22 showed large left MCA infarct -Carotid ultrasound no significant stenosis -Echo showed EF of 55 to 60% normal LV systolic function, minimal pericardial effusion Patient already on aspirin and statin Continue medication for hypertension Will evaluate for possible Acute Rehab admission; preferred over SNF as patient had prior high function PT/OT/ST consultations. Trial depakote for agitation, although today it appears that his agitation is actually expression of frustration due to communication barriers. (4) Severe uncontrolled hypertension Is this a current diagnosis for this admission?: Yes Plan: Labile blood pressures; overall improved. 136/66 today. -On carvedilol, nifedipine, valsartan, Imdur, Bumex, as needed hydralazine Consider clonidine. Nephrology is consulted. (5) Acute on chronic combined systolic and diastolic congestive heart failure Is this a current diagnosis for this admission?: Yes Plan: proBNP 10k-> 16k-> 13,800; baseline approximately 5k -Being followed by Dr. King in the outpatient setting; low threshold for in patient consultation. -Plan for ICD placement before current admission. Continue home dose carvedilol, hydralazine, isosorbide, Procardia, valsartan. Continue daily aspirin and statin therapy. Continue diuresis with Bumex. Resume hemodialysis per nephrology. Cardiac diet. Daily weights, strict I&O's. (6) Acute pulmonary edema with congestive heart failure Is this a current diagnosis for this admission?: Yes Plan: -improved with dialysis and Bumex Now maintaining oxygen saturations on room air. (7) Type 2 diabetes mellitus Qualifiers: Diabetes mellitus salvage determiner insulin use: without correction use Diabetes mellitus complication status: with kidney complications Diabetes mellitus complication detail: with chronic kidney disease Chronic kidney disease stage: on chronic dialysis Qualified Code(s): E11.22 - Type 2 diabetes mellitus with diabetic chronic kidney disease; N18.6 - End stage renal disease; Z99.2 - Dependence on renal dialysis Is this a current diagnosis for this admission?: Yes Plan: A1c 5.4% (10/20/2019) Holding oral medications while admitted. Patient is placed on a consistent carb diet. Accu-Cheks before meals and at bedtime with Humalog for sliding scale coverage. Hypoglycemia protocol in place. (8) Acute hypoxemic respiratory failure Is this a current diagnosis for this admission?: Yes Plan: Resolved; no maintaining oxygen saturations on room air. -Secondary to pulmonary edema and acute CHF exacerbation from CKD stage V -Intubated on 12/19 -Extubated on 12/21 -repeat CXR improving basilar aeration. Persistent perihilar edema and vascular congestion. No pneumothorax. Encourage pulmonary toilet with frequent position changes, incentive spirometer, and early ambulation. (9) Elevated troponin Is this a current diagnosis for this admission?: Yes Plan: -Per nursing noted with EKG changes on lunchroom monitor -not complaining of chest pain. trop leak likely due to elevated BP with ESRD -Lead EKG reviewed no significant change from previous, no ST elevation - trop 0.198>0.21>0.16 in the setting of ESRD on dialysis - Time Time Spent with patient: 25-34 minutes Medications reviewed and adjusted accordingly: Yes Anticipated Discharge Disposition: Acute rehab versus home with home health. Anticipated Discharge Timeframe: within 72 hours
[2019-12-30] MEDS: VANCOMYCIN HCL 750 MG in DEXTROSE 5%-WATER 250 ML IV SCH (19:37)
--- NOTE | 2019-12-30 21:28 | PDOC PROGRESS REPORT ---
Subjective Progress Note for:: 12/30/19 Subjective:: I am seeing the patient during dialysis this morning. He is more awake trying to mumble words and trying to speak but still unable to express himself. It is difficult to say if he is actually comprehending what people are telling him though. His blood pressure is mildly elevated. He is otherwise calm and tolerating dialysis. Reason For Visit: ACUTE HYPOXEMIC RESPIRATORY FAILURE Physical Exam Vital Signs: Temp Pulse Resp BP Pulse Ox 98.1 F 73 18 136/66 H 99 12/30/19 03:54 12/30/19 03:54 12/30/19 03:54 12/30/19 03:54 12/30/19 03:54 Intake & Output 12/29/19 12/30/19 12/31/19 06:59 06:59 06:59 Intake Total 250 660 Output Total 1100 Balance -850 660 Weight 100.2 kg 97.5 kg Vitals during dialysis: Blood pressure 168/91, heart rate of 77, blood flow rate of 250 mL/min and dialysate flow rate of 600 mL/min. Exam: General appearance: PRESENT: no acute distress, cooperative, well-developed, we ll-nourished Head exam: PRESENT: atraumatic, normocephalic Eye exam: PRESENT: conjunctiva slightly pale, PERRLA. ABSENT: scleral icterus Neck exam: ABSENT: JVD Respiratory exam: PRESENT: Normal breath sounds. ABSENT: crackles, rales, rhonchi, unlabored, wheezes Cardiovascular exam: PRESENT: Regular rate rhythm -+S1, +S2. ABSENT: diastolic murmur, systolic murmur GI/Abdominal exam: PRESENT: normal bowel sounds, soft. ABSENT: guarding, mass, tenderness Extremities exam: Trace bilateral lower extremity pitting edema, left leg lymphedema and left foot ulcer Neurological exam: PRESENT: alert, awake, aphasic. Skin exam: PRESENT: dry, warm, Results Laboratory Results: 12/30/19 06:09 12/30/19 06:09 12/30/19 12/30/19 06:09 06:09 WBC 13.7 H RBC 3.26 L Hgb 9.5 L Hct 28.3 L MCV 87 MCH 29.0 MCHC 33.4 RDW 14.4 H Plt Count 329 Seg Neutrophils % 82.2 H Sodium 134.8 L Potassium 3.9 Chloride 98 Carbon Dioxide 28 Anion Gap 9 BUN 36 H Creatinine 5.74 H Est GFR ( Amer) 12 L Glucose 173 H Calcium 8.3 L Total Bilirubin 0.3 AST 28 Alkaline Phosphatase 90 Total Protein 6.0 L Albumin 2.7 L 12/28/19 04:35 Catheterized Urine Urine Culture - Final Pseudomonas Aeruginosa 12/20/19 12/20/19 12/21/19 02:45 16:11 04:25 Creatine Kinase Troponin I 0.048 NT-Pro-B Natriuret Pep 63035 H 61447 H 04412 H 12/25/19 12/25/19 12/25/19 15:17 15:17 20:03 Creatine Kinase 259 H Troponin I 0.198 0.204 NT-Pro-B Natriuret Pep 12/26/19 12/26/19 00:30 08:23 Creatine Kinase Troponin I 0.211 0.160 NT-Pro-B Natriuret Pep Impressions: Carotid Doppler Study 12/23/19 00:00 IMPRESSION: NO HEMODYNAMICALLY SIGNIFICANT STENOSIS. Head MRI 12/23/19 00:00 IMPRESSION: 1. Large left MCA infarct. No intracranial hemorrhage. 2. Diffuse cerebral atrophy and small-vessel ischemic changes. EVIDENCE OF ACUTE STROKE: YES. Lower Extremity CT 12/25/19 00:00 IMPRESSION: 1. Marked diffuse skin thickening and subcutaneous edema involving the ankle and foot most consistent with cellulitis. No focal fluid collection to suggest abscess. No subcutaneous gas. 2. Chronic arthrodesis and surgical fixation at the tibiotalar joint. 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 Findings are stable from previous radiograph. No evidence of acute fracture or destructive bone lesion. 3. Pin fixation at the distal tibia without evidence of hardware complication. 4. Chronic amputations 3rd- 5th digits metatarsals stable in appearance from previous examination. Chronic degenerative change at the 2nd digit metatarsal head appears stable from prior radiograph. Guidance Fluoroscopy 12/28/19 00:00 IMPRESSION: IMAGE(S) OBTAINED DURING PROCEDURE. Assessment & Plan - Diagnosis (1) End stage renal disease Is this a current diagnosis for this admission?: Yes Plan: Secondary to diabetic nephropathy with nephrotic range proteinuria. His kidney function has been rapidly deteriorating for the last several months who has now reached end-stage renal disease requiring initiation of renal replacement therapy. Patient's daughter, Rupa Silvestre has given consent to initiate renal replacement therapy, 12/21/2019. She understood the need for initiation of renal replacement therapy and chronic dialysis treatment moving forward unless he has substantial renal recovery and she consented. We will do dialysis today for 3 hours, using the patient's newly placed right IJ PermCath, with 3 potassium bath, blood flow rate of 250 mL per minute, dialysate flow rate of 600 mL per minute, ultrafiltration 1 L as tolerated, no heparin and Retacrit with 5000 units during dialysis intravenously if blood pressure is better. Patient is currently being monitored closely. Patient has been accepted at [facility] for outpatient chronic dialysis. Upon discharge he will continue to do dialysis 3 times a week. (2) Left acute arterial ischemic stroke, MCA (middle cerebral artery) Is this a current diagnosis for this admission?: Yes Plan: Patient continues to be aphasic. Physical therapy and speech therapy ordered. Patient needs to continue PT upon discharge. (3) Leukocytosis Qualifiers: Leukocytosis type: unspecified Qualified Code(s): D72.829 - Elevated white blood cell count, unspecified Is this a current diagnosis for this admission?: Yes Plan: On IV ceftriaxone and vancomycin. (4) Acute hypoxemic respiratory failure Is this a current diagnosis for this admission?: Yes Plan: Due to acute flash pulmonary edema in a patient with underlying worsening kidney disease. Resolved. 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 Last echocardiogram on May 04, 2019 showed LVEF of 40 to 45%, left ventricle moderately dilated with mild LVH, grade 1/4 diastolic dysfunction, moderate global hypokinesia, biatrial dilation and moderate to severe pulmonary hypertension. Repeat echocardiogram on 12/15/2019 showed EF of 55 to 60% with mild pulmonary hypertension. Improved and currently compensated after initiation of dialysis. (6) Acute pulmonary edema with congestive heart failure Is this a current diagnosis for this admission?: Yes Plan: Resolved with hemodialysis ultrafiltration and diuresis. (7) Diabetic nephropathy Qualifiers: Diabetes mellitus type: type 2 Qualified Code(s): E11.21 - Type 2 diabetes mellitus with diabetic nephropathy Is this a current diagnosis for this admission?: Yes Plan: Associated with nephrotic range proteinuria, 10 g from last outpatient lab. Most likely due to diabetic nephropathy. Serologies including SPEP has been negative previously. (8) Metabolic acidosis Is this a current diagnosis for this admission?: Yes Plan: Resolved on dialysis. (9) Anemia in chronic kidney disease (CKD) Is this a current diagnosis for this admission?: Yes Plan: His iron is very low at less than 10.1, iron saturation cannot be calculated, ferritin is 274 . I gave the patient a dose of IV Injectafer on 12/22/2019. We will give another dose of IV Injectafer. Retacrit on dialysis. (10) Iron deficiency anemia Qualifiers: Iron deficiency anemia type: unspecified iron deficiency Qualified Code(s): D50.9 - Iron deficiency anemia, unspecified Is this a current diagnosis for this admission?: Yes Plan: IV Injectafer x1 dose given 12/22/2019. Will give second dose of IV Injectafer today. (11) Hypertension Qualifiers: Hypertension type: renovascular hypertension Qualified Code(s): I15.0 - Renovascular hypertension Is this a current diagnosis for this admission?: Yes Plan: At baseline patient has difficult to control elevated hypertension with his oral medications. Currently suboptimally controlled due to intermittent known intake of oral medications and currently being given IV as needed medications. (12) Chronic kidney disease-mineral and bone disorder Is this a current diagnosis for this admission?: Yes Plan: Last phosphorus 4.3, magnesium of 2.0 and PTH of 349.55. On 12/07/2019 he had a PTH of 642.5 and last of 25-hydroxy vitamin D of less than 4. Started on calcitriol. Continue ergocalciferol. (13) Type 2 diabetes mellitus Qualifiers: Diabetes mellitus longitudinal float operator insulin use: without fpc use Diabetes mellitus complication status: with kidney complications Diabetes mellitus complication detail: with chronic kidney disease Chronic kidney disease stage: on chronic dialysis Qualified Code(s): E11.22 - Type 2 diabetes mellitus with diabetic chronic kidney disease; N18.6 - End stage renal disease; Z99.2 - Dependence on renal dialysis Is this a current diagnosis for this admission?: Yes Plan: Controlled. - Time Time with patient: 15-25 minutes
[2019-12-30] MEDS: ATORVASTATIN CALCIUM 40 MG TABLET PO SCH (22:06)
[2019-12-30] MEDS ORDERED: FERRIC CARBOXYMALTOSE 750 MG in NORMAL SALINE 100 ML IV ONE (22:30)
[2019-12-31] MEDS: HALOPERIDOL LACTATE INJ 5 MG/1 ML VIAL IV PRN (01:06)
[2019-12-31] MEDS: HYDRALAZINE HCL 50 MG TABLET PO SCH ×2 (05:36→13:32)
[2019-12-31] MEDS: HEPARIN SOD (PORCINE) 5,000 UNIT/ML 1 ML VIAL SUBCUT SCH ×2 (05:36→13:32)
[2019-12-31] MEDS: PANTOPRAZOLE SODIUM 20 MG TABLET.DR PO SCH (05:36)
[2019-12-31] MEDS: INSULIN REG, HUMAN 100 UNIT/ML 3 ML VIAL (PYX) SUBCUT SCH ×2 (08:38→12:27)
[2019-12-31] MEDS: ISOSORBIDE MONONITRATE 60 MG TAB.ER.24H PO SCH (08:39)
[2019-12-31] MEDS: CALCIUM ACETATE 667 MG CAPSULE PO SCH ×2 (08:39→11:30)
[2019-12-31] MEDS: CARVEDILOL 12.5 MG TABLET PO SCH (10:03)
[2019-12-31] MEDS: BUMETANIDE 1 MG TABLET PO SCH (10:03)
[2019-12-31] MEDS: ASPIRIN 81 MG TABLET, CHEWABLE PO SCH (10:03)
[2019-12-31] MEDS: CALCITRIOL 0.25 MCG CAPSULE PO SCH (10:04)
[2019-12-31] MEDS: VALSARTAN 160 MG TABLET PO SCH (10:04)
[2019-12-31] MEDS: DIVALPROEX SODIUM 250 MG TAB.SR.24H PO SCH (10:04)
[2019-12-31] MEDS: NIFEDIPINE 30 MG TAB.ER.24 PO SCH (10:04)
--- NOTE | 2019-12-31 12:27 | PDOC DISCHARGE SUMMARY ---
Impression - Admit/DC Date/PCP Admission Date/Primary Care Provider: 12/20/19 04:17 JADIEL SHARPE MD Discharge Date: 12/31/19 - Discharge Diagnosis (1) Cellulitis of left lower extremity Is this a current diagnosis for this admission?: Yes (2) ESRD (end stage renal disease) on dialysis Is this a current diagnosis for this admission?: Yes (3) Left acute arterial ischemic stroke, MCA (middle cerebral artery) Is this a current diagnosis for this admission?: Yes (4) Severe uncontrolled hypertension Is this a current diagnosis for this admission?: Yes (5) Acute on chronic combined systolic and diastolic congestive heart failure Is this a current diagnosis for this admission?: Yes (6) Acute pulmonary edema with congestive heart failure Is this a current diagnosis for this admission?: Yes (7) Type 2 diabetes mellitus Is this a current diagnosis for this admission?: Yes (8) Acute hypoxemic respiratory failure Is this a current diagnosis for this admission?: Yes (9) Elevated troponin Is this a current diagnosis for this admission?: Yes - Additional Information Resuscitation Status: Full Code Discharge Diet: Cardiac, Diabetic, Other (Comments) Discharge Activity: Activity As Tolerated, Balance Activity w/Rest, Weigh Daily Referrals: JADIEL SHARPE MD [Primary Care Provider] - 01/06/20 2:45 pm Prescriptions: Bumetanide [Bumex 1 mg Tablet] 2 mg PO BID #120 tablet Divalproex Sodium [Depakote ER 250 mg Tablet] 250 mg PO Q12 #60 tab.sr.24h Calcium Acetate [Phoslo 667 mg Capsule] 1,334 mg PO MEALS #90 capsule Calcitriol [Rocaltrol 0.25 mcg Capsule] 0.25 mcg PO DAILY #30 capsule Sulfamethoxazole/Trimethoprim [Septra Susp 800-160 mg/20 ml] 20 ml PO DAILY #4 udc Home Medications: Aspirin [Ecotrin 81 mg EC Tablet] 81 mg PO DAILY 12/12/18 Glipizide [Glipizide Xl] 10 mg PO [id number] 06/16/19 Atorvastatin Calcium [Lipitor 40 mg Tablet] 40 mg PO QHS #30 tablet 10/23/19 Carvedilol 25 mg PO Q12 #60 tablet 10/23/19 Hydralazine HCl [Apresoline 25 mg Tablet] 25 mg PO Q8 #90 tablet 10/23/19 Valsartan [Diovan 160 mg Tablet] 160 mg PO Q12 #60 tablet 10/23/19 Ergocalciferol (Vitamin D2) [Drisdol 50,000 unit (1.25MG) Capsule] 50,000 unit PO ESQUIVEL 12/20/19 Isosorbide Mononitrate [Imdur 60 mg Tablet.er] 60 mg PO QAM 12/20/19 Nifedipine [Nifedipine ER] 90 mg PO QAM 12/20/19 Acetaminophen [Tylenol 650 mg Supp] 650 mg NH Q6HP PRN supp.rect 12/31/19 Bumetanide [Bumex 1 mg Tablet] 2 mg PO BID #120 tablet 12/31/19 Calcitriol [Rocaltrol 0.25 mcg Capsule] 0.25 mcg PO DAILY #30 capsule 12/31/19 Calcium Acetate [Phoslo 667 mg Capsule] 1,334 mg PO MEALS #90 capsule 12/31/19 Divalproex Sodium [Depakote ER 250 mg Tablet] 250 mg PO Q12 #60 tab.sr.24h 12/31/19 Sulfamethoxazole/Trimethoprim [Septra Susp 800-160 mg/20 ml] 20 ml PO DAILY #4 udc 12/31/19 History of Present Illiness History of Present Illness: Per H&P by Alma Rosa Noland: Mr. Johnathon Garay is a 59-year-old -[place] gentleman with a past medical history of CHF, and CKD. Presented to the ED with severe respiratory distress. He was placed on BiPAP with FiO2 100% ABG ABG revealed a pH of 7.09 PCO2 41.3 PaO2 90.5. He had a BN P 10,400 BUN 45 creatinine 5.54. He failed BiPAP and subsequently was intubated and admitted to the ICU for further management. Hospital Course Hospital Course: (1) Cellulitis of left lower extremity Significantly improved; edema is decreased. No noted erythema. Left plantar surface foot wound appears to be healthy with granulation tissue. -CT left lower legs showed findings consistent with cellulitis no subcutaneous gas Blood cultures have no growth at 48 hours and 5 days. 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 Pseudomonas was sensitive to fluoroquinolones. Empirically placed on IV vancomycin and ceftriaxone; received 3 days of therapy. Transitioned to oral Bactrim to complete a total 7 day course. 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 Calcitriol and Bumex per nephrology Retacrit with dialysis per nephrology (3) Left acute arterial ischemic stroke, MCA (middle cerebral artery) -MRI brain 12/22 showed large left MCA infarct -Carotid ultrasound no significant stenosis -Echo showed EF of 55 to 60% normal LV systolic function, minimal pericardial effusion Continue on aspirin and statin Continue medication for hypertension Continue depakote for agitation, although today it appears that his agitation is actually expression of frustration due to communication barriers. Discussed patient's continued deficits (primarily receptive/expressive aphasia and impulse/safety awareness) with daughter, Rupa. Reviewed options for home w/ home health vs LTC at [facility] as patient is over-qualified for Acute Rehab and Short term SNF rehab. Family has decided on home with home health services. (4) Severe uncontrolled hypertension Labile blood pressures; overall improved. 136/66 today. -On carvedilol, nifedipine, valsartan, Imdur, Bumex, as needed hydralazine (5) Acute on chronic combined systolic and diastolic congestive heart failure proBNP 10k-> 16k-> 13,800 -Being followed by Dr. King in the outpatient setting -Plan for ICD placement before current admission. Continue home dose carvedilol, hydralazine, isosorbide, Procardia, valsartan. Continue daily aspirin and statin therapy. Continue diuresis with Bumex. Continue hemodialysis per nephrology. Cardiac diet. Outpatient follow up with Dr. King. (6) Acute pulmonary edema with congestive heart failure Resolved Continue with dialysis and Bumex Now maintaining oxygen saturations on room air. (7) Type 2 diabetes mellitus A1c 5.4% (10/20/2019) Resume home medication regimen at discharge. (8) Acute hypoxemic respiratory failure Resolved; no maintaining oxygen saturations on room air. -Secondary to pulmonary edema and acute CHF exacerbation from CKD stage V -Intubated on 12/19 -Extubated on 12/21 -repeat CXR improving basilar aeration. Persistent perihilar edema and vascular congestion. No pneumothorax. Encourage pulmonary toilet with frequent position changes, incentive spirometer, and ambulation. (9) Elevated troponin No complaint of chest pain. trop leak likely due to elevated BP with ESRD EKG reviewed no significant change from previous, no ST elevation Trop 0.198>0.21>0.16 in the setting of ESRD on dialysis Physical Exam Vital Signs: Temp Pulse Resp BP Pulse Ox 98.1 F 76 14 165/78 H 97 12/31/19 08:13 12/31/19 03:20 12/31/19 03:20 12/31/19 03:20 12/31/19 03:20 Intake & Output 12/30/19 12/31/19 01/01/20 06:59 06:59 06:59 Intake Total 660 1627 Output Total 2000 Balance 660 -373 Weight 97.5 kg 99.1 kg General appearance: PRESENT: no acute distress, cooperative, well-developed, well-nourished Head exam: PRESENT: atraumatic, normocephalic Eye exam: PRESENT: conjunctiva pink, EOMI, PERRLA. ABSENT: scleral icterus Mouth exam: PRESENT: moist, tongue midline Respiratory exam: PRESENT: clear to auscultation liseth, symmetrical, unlabored. ABSENT: rales, rhonchi, wheezes Cardiovascular exam: PRESENT: RRR, +S1, +S2. ABSENT: diastolic murmur, rubs, systolic murmur Pulses: PRESENT: normal dorsalis pedis pul Vascular exam: PRESENT: normal capillary refill Extremities exam: PRESENT: full ROM, +2 edema - LLE. ABSENT: calf tenderness, clubbing, pedal edema Musculoskeletal exam: PRESENT: ambulatory - With front wheel walker Neurological exam: PRESENT: alert, awake, oriented to person, CN II-XII grossly intact, other - Right hemiparesis upper and lower extremity; significantly improved. Conductive aphasia noted; slight improvement today. ABSENT: motor sensory deficit Psychiatric exam: PRESENT: appropriate affect, normal mood. ABSENT: homicidal ideation, suicidal ideation Skin exam: PRESENT: dry, warm, other - Left lateral plantar foot wound (POA) with granulation tissue to the base. No surrounding erythema. No drainage. ABSENT: cyanosis, rash Results Laboratory Results: WBC 13.7 10^3/uL (4.0-10.5) H 12/30/19 06:09 RBC 3.26 10^6/uL (4.35-5.55) L 12/30/19 06:09 Hgb 9.5 g/dL (13.5-17.0) L 12/30/19 06:09 Hct 28.3 % (37.9-51.0) L 12/30/19 06:09 MCV 87 fl (80-97) 12/30/19 06:09 MCH 29.0 pg (27.0-33.4) 12/30/19 06:09 MCHC 33.4 g/dL (32.0-36.0) 12/30/19 06:09 RDW 14.4 % (11.5-14.0) H 12/30/19 06:09 Plt Count 329 10^3/uL (150-450) 12/30/19 06:09 Lymph % (Auto) 7.3 % (13-45) L 12/30/19 06:09 [place] % (Auto) 7.6 % (3-13) 12/30/19 06:09 Eos % (Auto) 2.0 % (0-6) 12/30/19 06:09 Baso % (Auto) 0.9 % (0-2) 12/30/19 06:09 Reticulocyte # 0.028 10^6/uL (0.028-0.122) 12/21/19 07:10 Absolute Neuts (auto) 11.2 10^3/uL (1.7-8.2) H 12/30/19 06:09 Absolute Lymphs (auto) 1.0 10^3/uL (0.5-4.7) 12/30/19 06:09 Absolute Monos (auto) 1.0 10^3/uL (0.1-1.4) 12/30/19 06:09 Absolute Eos (auto) 0.3 10^3/uL (0.0-0.6) 12/30/19 06:09 Absolute Basos (auto) 0.1 10^3/uL (0.0-0.2) 12/30/19 06:09 Total Counted 100 12/28/19 05:56 Seg Neutrophils % 82.2 % (42-78) H 12/30/19 06:09 Seg Neuts % (Manual) 88 % (42-78) H 12/28/19 05:56 Lymphocytes % (Manual) 6 % (13-45) L 12/28/19 05:56 Monocytes % (Manual) 6 % (3-13) 12/28/19 05:56 Eosinophils % (Manual) 0 % (0-6) 12/28/19 05:56 Basophils % (Manual) 0 % (0-2) 12/28/19 05:56 Abs Neuts (Manual) 16.3 10^3/uL (1.7-8.2) H 12/28/19 05:56 Abs Lymphs (Manual) 1.1 10^3/uL (0.5-4.7) 12/28/19 05:56 Abs Monocytes (Manual) 1.1 10^3/uL (0.1-1.4) 12/28/19 05:56 Absolute Eos (Manual) 0.0 10^3/uL (0.0-0.6) 12/28/19 05:56 Abs Basophils (Manual) 0.0 10^3/uL (0.0-0.2) 12/28/19 05:56 Platelet Estimate Cancelled 12/21/19 04:25 Platelet Comment ADEQUATE 12/28/19 05:56 Poikilocytosis 1+ 12/28/19 05:56 Anisocytosis SLIGHT 12/28/19 05:56 Microcytosis SLIGHT 12/28/19 05:56 Schistocytes 1+ 12/28/19 05:56 Retic Count (auto) 1.09 % (0.66-2.85) 12/21/19 07:10 Carbonic Acid 1.21 mmol/L (1.05-1.35) 12/21/19 05:30 HCO3/H2CO3 Ratio 16:1 12/21/19 05:30 ABG pH 7.32 (7.35-7.45) L 12/21/19 05:30 ABG pCO2 40.2 mmHg (35-45) 12/21/19 05:30 ABG pO2 61.0 mmHg (80-100) L 12/21/19 05:30 ABG HCO3 20.0 mmol/L (20-24) 12/21/19 05:30 ABG Total CO2 21.2 mmol/L (23-27) L 12/21/19 05:30 ABG O2 Saturation 89.5 % (94-98) L 12/21/19 05:30 ABG Base Excess -5.7 mmol/L 12/21/19 05:30 VBG pH 7.26 (7.30-7.42) L 12/20/19 06:16 VBG pCO2 39.2 mmHg (35-63) 12/20/19 06:16 VBG HCO3 17.2 mmol/L (20-32) L 12/20/19 06:16 VBG Base Excess -9.2 mmol/L 12/20/19 06:16 FiO2 30% 12/21/19 05:30 Sodium 134.8 mmol/L (137-145) L 12/30/19 06:09 Potassium 3.9 mmol/L (3.6-5.0) 12/30/19 06:09 Chloride 98 mmol/L (98-107) 12/30/19 06:09 Carbon Dioxide 28 mmol/L (22-30) 12/30/19 06:09 Anion Gap 9 (5-19) 12/30/19 06:09 BUN 36 mg/dL (7-20) H 12/30/19 06:09 Creatinine 5.74 mg/dL (0.52-1.25) H 12/30/19 06:09 Est GFR ( Amer) 12 (>60) L 12/30/19 06:09 Est GFR (MDRD) Non-Af 10 (>60) L 12/30/19 06:09 Glucose 173 mg/dL (75-110) H 12/30/19 06:09 POC Glucose 149 mg/dL (70-110) H 12/31/19 07:43 Lactic Acid 0.9 mmol/L (0.7-2.1) 12/25/19 15:17 Calcium 8.3 mg/dL (8.4-10.2) L 12/30/19 06:09 Phosphorus 4.3 mg/dL (2.5-4.5) 12/25/19 05:33 Magnesium 1.9 mg/dL (1.6-2.3) 12/25/19 05:33 Iron < 10.1 ug/dL (49-181) L 12/21/19 11:38 TIBC 200 ug/dL (250-450) L 12/21/19 11:38 Iron Saturation UNABLE TO CALCULATE % (20% - 50%) 12/21/19 11:38 Ferritin 276.00 ng/mL (17.9-464.0) 12/21/19 11:38 Total Bilirubin 0.3 mg/dL (0.2-1.3) 12/30/19 06:09 Direct Bilirubin 0.2 mg/dL (0.0-0.4) 12/30/19 06:09 Neonat Total Bilirubin Not Reportable 12/30/19 06:09 Neonat Direct Bilirubin Not Reportable 12/30/19 06:09 Neonat Indirect Bili Not Reportable 12/30/19 06:09 AST 28 U/L (17-59) 12/30/19 06:09 ALT 14 U/L (<50) 12/30/19 06:09 Alkaline Phosphatase 90 U/L (38-126) 12/30/19 06:09 Creatine Kinase 259 U/L (55-170) H 12/25/19 15:17 Troponin I 0.160 ng/mL 12/26/19 08:23 NT-Pro-B Natriuret Pep 35478 pg/mL (<125) H 12/21/19 04:25 Total Protein 6.0 g/dL (6.3-8.2) L 12/30/19 06:09 Albumin 2.7 g/dL (3.5-5.0) L 12/30/19 06:09 Vitamin B12 308.0 pg/mL (239-931) 12/21/19 11:38 Folate 4.27 ng/mL (>2.76) 12/21/19 11:38 PTH Intact 349.5 pg/mL (10.0-65.0) H 12/21/19 11:38 Urine Color YELLOW 12/28/19 04:35 Urine Appearance CLEAR 12/28/19 04:35 Urine pH 7.0 (5.0-9.0) 12/28/19 04:35 Ur Specific [place] 1.016 12/28/19 04:35 Urine Protein >=500 mg/dL (NEGATIVE) H 12/28/19 04:35 Urine Glucose (UA) 150 mg/dL (NEGATIVE) H 12/28/19 04:35 Urine Ketones TRACE mg/dL (NEGATIVE) H 12/28/19 04:35 Urine Blood NEGATIVE (NEGATIVE) 12/28/19 04:35 Urine Nitrite (Reflex) NEGATIVE (NEGATIVE) 12/28/19 04:35 Urine Bilirubin NEGATIVE (NEGATIVE) 12/28/19 04:35 Urine Urobilinogen NEGATIVE mg/dL (<2.0) 12/28/19 04:35 Leukocyte Esterase Rfl TRACE (NEGATIVE) H 12/28/19 04:35 Urine RBC (Auto) 10 /HPF 12/28/19 04:35 U Hyaline Cast (Auto) 1 /LPF 12/28/19 04:35 Urine Bacteria (Auto) TRACE /HPF 12/28/19 04:35 Urine WBC (Reflex) 65 /HPF 12/28/19 04:35 Squamous Epi Cells Auto <1 /HPF 12/28/19 04:35 Urine Mucus (Auto) RARE /LPF 12/28/19 04:35 Urine Ascorbic Acid NEGATIVE (NEGATIVE) 12/28/19 04:35 Time Trough Drawn 0612/30/19 06:09 Vancomycin Trough 12.4 ug/mL (5.0-20.0) 12/30/19 06:09 COVID-19 Source See comment 12/23/19 23:15 COVID-19 (DARREN) Not Detected (Not Detect) 12/23/19 23:15 Hep Bs Antigen Negative (Negative) 12/21/19 10:00 Hep Bs Antibody, Quant 10.6 mIU/mL (Immunity>9) 12/21/19 10:00 Hep B Core Total Ab Negative (Negative) 12/21/19 10:00 HCV Quantitation HCV Not Detected IU/mL (.) 12/21/19 10:00 HCV RNA PCR Test Info Comment (.) 12/21/19 10:00 Slides for Path Review Cancelled 12/21/19 04:25 12/20/19 12/20/19 12/21/19 02:45 16:11 04:25 Troponin I 0.048 NT-Pro-B Natriuret Pep 19875 H 59144 H 75452 H 12/25/19 12/25/19 12/26/19 15:17 20:03 00:30 Troponin I 0.198 0.204 0.211 NT-Pro-B Natriuret Pep 12/26/19 08:23 Troponin I 0.160 NT-Pro-B Natriuret Pep Impressions: Chest X-Ray 12/20/19 00:00 IMPRESSION: Diffuse airspace disease which may represent pulmonary edema and/or pneumonia. copyright 2011 [employer]- All Rights Reserved Chest X-Ray 12/21/19 05:00 IMPRESSION: Endotracheal tube in appropriate position. Carotid Doppler Study 12/23/19 00:00 IMPRESSION: NO HEMODYNAMICALLY SIGNIFICANT STENOSIS. Head MRI 12/23/19 00:00 IMPRESSION: 1. Large left MCA infarct. No intracranial hemorrhage. 2. Diffuse cerebral atrophy and small-vessel ischemic changes. EVIDENCE OF ACUTE STROKE: YES. Lower Extremity CT 12/25/19 00:00 IMPRESSION: 1. Marked diffuse skin thickening and subcutaneous edema involving the ankle and foot most consistent with cellulitis. No focal fluid collection to suggest abscess. No subcutaneous gas. 2. Chronic arthrodesis and surgical fixation at the tibiotalar joint. 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 Findings are stable from previous radiograph. No evidence of acute fracture or destructive bone lesion. 3. Pin fixation at the distal tibia without evidence of hardware complication. 4. Chronic amputations 3rd- 5th digits metatarsals stable in appearance from previous examination. Chronic degenerative change at the 2nd digit metatarsal head appears stable from prior radiograph. Guidance Fluoroscopy 12/28/19 00:00 IMPRESSION: IMAGE(S) OBTAINED DURING PROCEDURE. Plan Plan of Treatment: Patient is discharged home, into the care of family members, with home health services. He is advised to follow-up with his primary care provider within 1 week. 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 follow up with Dr. King as scheduled. Keep his dialysis appointments. Eat a heart healthy, consistent carb diet. Take medications as prescribed. Return to the emergency department, as needed, for concerning symptoms. Time Spent: Greater than 30 Minutes Stroke Is this a Stroke Patient?: Yes Stroke Pt being discharged on Anti-thrombolytic therapy?: Yes Stroke Pt being discharged on Anti-coagulation therapy?: No Reason(s) for not prescribing Anti-coagulation therapy:: Not indicated Stroke Pt being discharged on Statins?: Yes Acute Heart Failure Is this a Heart Failure Patient?: Yes Documentation of LVEF assessment?: Yes LVEF: LVEF Greater Than 40% Anticoagulant Therapy: N/A Discharged on Evidence-Based Beta Blockers: Yes Reason(s) not discharged on ARNI: Impaired/worsening renal functions Discharged on ARB?: No-document contraindications Reason(s) not Discharged on ARB: Impaired/worsening renal functions Discharged on ACEI?: No, document contraindications Reason(s) not Discharged on ACEI: Impaied/worsening renal function For LVEF <35%, discharged on Aldosterone Antagonist?: N/A (LVEF > or = 35%) Follow-up Appointment scheduled within 7 days?: Yes
[2019-12-31] MEDS ORDERED: SULFAMETHOXAZOLE/TRIMETHOPRIM 800-160 MG/20 ML UDCUP PO SCH (12:30)
[2019-12-31 14:03] VITALS: BP 163/73
[2020-01-01] MEDS ORDERED: INFLUENZA QUAD (6MOS+) 2020-21 VAC 0.5 ML SYR IM ONE (08:00)
== END 2019-12-31 14:59 | disposition home health service (06) | DRG 208 ==
LOC: ER 02:45 → EH 04:17 → ICU 07:03 → 3S 12-24 23:20
PROVIDERS: ADMIT Internal Medicine Critical Care Medicine; ATTEND Registered Nurse
PROC: 5A1945Z Respiratory Ventilation, 24-96 Consecutive Hours (ICD-10-PCS; principal; 2019-12-20)
PROC: 0BH17EZ Insertion of Endotracheal Airway into Trachea, Via Natural or Artificial Opening (ICD-10-PCS; 2019-12-20)
PROC: 5A09357 Assistance with Respiratory Ventilation, Less than 24 Consecutive Hours, Continuous Positive Airway Pressure (ICD-10-PCS; 2019-12-20)
PROC: 5A1D70Z Performance of Urinary Filtration, Intermittent, Less than 6 Hours Per Day (ICD-10-PCS; 2019-12-21)
PROC: B24BZZ4 Ultrasonography of Heart with Aorta, Transesophageal (ICD-10-PCS; 2019-12-23)
PROC: 5A1D70Z Performance of Urinary Filtration, Intermittent, Less than 6 Hours Per Day (ICD-10-PCS; 2019-12-23)
PROC: 5A1D70Z Performance of Urinary Filtration, Intermittent, Less than 6 Hours Per Day (ICD-10-PCS; 2019-12-25)
PROC: 02HV33Z Insertion of Infusion Device into Superior Vena Cava, Percutaneous Approach (ICD-10-PCS; 2019-12-28)
PROC: B548ZZA Ultrasonography of Superior Vena Cava, Guidance (ICD-10-PCS; 2019-12-28)
PROC: 5A1D70Z Performance of Urinary Filtration, Intermittent, Less than 6 Hours Per Day (ICD-10-PCS; 2019-12-28)
PROC: 5A1D70Z Performance of Urinary Filtration, Intermittent, Less than 6 Hours Per Day (ICD-10-PCS; 2019-12-30)
DX: J96.01 Acute respiratory failure with hypoxia (principal); I63.512 Cerebral infarction due to unspecified occlusion or stenosis of left middle cerebral artery; N18.6 End stage renal disease; I50.43 Acute on chronic combined systolic (congestive) and diastolic (congestive) heart failure; I13.2 Hypertensive heart and chronic kidney disease with heart failure and with stage 5 chronic kidney disease, or end stage renal disease; L03.116 Cellulitis of left lower limb; E87.2 Acidosis; R47.01 Aphasia; G81.91 Hemiplegia, unspecified affecting right dominant side; E11.22 Type 2 diabetes mellitus with diabetic chronic kidney disease; E78.5 Hyperlipidemia, unspecified; E11.51 Type 2 diabetes mellitus with diabetic peripheral angiopathy without gangrene; K21.9 Gastro-esophageal reflux disease without esophagitis; E11.21 Type 2 diabetes mellitus with diabetic nephropathy; M89.9 Disorder of bone, unspecified; D63.1 Anemia in chronic kidney disease; Z53.29 Procedure and treatment not carried out because of patient's decision for other reasons; R41.0 Disorientation, unspecified; B96.5 Pseudomonas (aeruginosa) (mallei) (pseudomallei) as the cause of diseases classified elsewhere; Z79.899 Other long term (current) drug therapy; Z79.82 Long term (current) use of aspirin; Z86.14 Personal history of Methicillin resistant Staphylococcus aureus infection; Z87.11 Personal history of peptic ulcer disease; Z89.422 Acquired absence of other left toe(s); Z87.891 Personal history of nicotine dependence; Z99.2 Dependence on renal dialysis; Z20.828 Contact with and (suspected) exposure to other viral communicable diseases
CPT/HCPCS: 00532; 36415; 36600; 70551; 71045; 77001; 80048; 80053; 80202; 81001; 82550; 82607; 82728; 82746; 82803; 82962; 83540; 83550; 83605; 83735; 83880; 83970; 84100; 84132; 84484; 85025; 85045; 86317; 86704; 87040; 87086; 87088; 87186; 87340; 87522; 87635; 93005; 93010; 93306; 93503; 93880; 94002; 94003; 94660; 96365; 96368; 96375; 99221; 99291; C9113; C9803; J0360; J0696; J1439; J1630; J1642; J1644; J1815; J1940; J2060; J2250; J2270; J2704; J3010; J3230; J3370; J3475; J3490; J7050; J7060; Q5105

== ENCOUNTER 2020-01-07 10:10 | Emergency (ER) | payer MEDICARE, MEDICAID ==
--- NOTE | 2020-01-07 14:32 | ER Document Report ---
ED General - General Chief Complaint: NONCOMPLIANT Stated Complaint: MEDICAL CLERANCE Time Seen by Provider: 01/07/20 14:03 Primary Care Provider: JADIEL SHARPE MD [Primary Care Provider] - Follow up as needed Mode of Arrival: Ambulatory Information source: Patient Cannot obtain history due to: Uncooperative, Altered mental status Notes: Patient is a 59-year-old male was brought in by EMS with multiple complaints. Patient was recently released from the hospital on 12/31/2019 with diagnosis of cellulitis left lower extremity, end-stage renal disease, left acute arterial ischemic stroke which was acute and severe uncontrolled hypertension and chronic CHF. Patient is still having multiple residual problems with the recent stroke. He has very aphasic very difficult that pain any history or reasons for him being here. It was noted the patient has a bleeding wound on the left foot lateral aspect. Patient currently is anxious and frustrated that he cannot get his words out. History is exceptionally difficult at this time. I have a reasonable patient to allow us to do some lab work and repeat a CT of his head since he indicates that he is having worsening of his symptoms on speaking. Family was contacted and said they run away and but that is been over 3 hours ago. So at this point we will attempt to do a work-up to see if we can pinpoint patient's problems. TRAVEL OUTSIDE OF THE [place] IN LAST 30 DAYS: No - HPI Onset: Other - Unknown Onset/Duration: Worse Quality of pain: No pain Severity: Moderate Pain Level: 3 Associated symptoms: Other - Unable to ascertain secondary to patient's inability to communicate Exacerbated by: Denies Relieved by: Denies, Other - Again unable to ascertain secondary to patient's inability to totally communicate. Similar symptoms previously: Yes Recently seen / treated by doctor: Yes - Related Data Allergies/Adverse Reactions: No Known Allergies Allergy (Verified 06/10/18 17:31) Past Medical History - General Information source: Patient, [facility] Records - Social History Smoking Status: Unknown if Ever Smoked Frequency of alcohol use: None Drug Abuse: None Lives with: Family Family History: Reviewed & Not Pertinent, CAD, Hypertension, Malignancy Patient has homicidal ideation: No - Past Medical History Cardiac Medical History: Reports: Hx Congestive Heart Failure - Chronic combined systolic and diastolic congestive heart failure, Hx Hypercholesterolemia, Hx Hypertension, Hx Peripheral Vascular Disease Denies: Hx Atrial Fibrillation, Hx Coronary Artery Disease, Hx DVT, Hx Heart Attack, Hx Pulmonary Embolism Pulmonary Medical History: Reports: Hx Pneumonia, Hx Respiratory Failure Denies: Hx Asthma, Hx Bronchitis, Hx COPD, Hx Tuberculosis Neurological Medical History: Denies: Hx Seizures, Hx Parkinson's Disease Endocrine Medical History: Reports: Hx Diabetes Mellitus Type 2. Denies: Hx Latasha betes Mellitus Type 1, Hx Hyperthyroidism, Hx Hypothyroidism Renal/ Medical History: Denies: Hx Benign Prostatic Hyperplasia, Hx End Stage Renal Disease, Hx Kidney Stones, Hx Peritoneal Dialysis GI Medical History: Reports: Hx Gastroesophageal Reflux Disease. Denies: Hx Cirrhosis, Hx Crohn's Disease, Hx Hepatitis, Hx Ulcer, Hx Ulcerative Colitis Musculoskeletal Medical History: Reports Hx Arthritis, Denies Hx Gout, Denies Hx Multiple Sclerosis, Reports Hx Musculoskeletal Deformity, Reports Hx Musculoskeletal Trauma Skin Medical History: Denies Hx Eczema, Denies Hx Psoriasis Psychiatric Medical History: Denies: Hx Bipolar Disorder, Hx Depression, Hx Schizophrenia Traumatic Medical History: Reports: Hx Fractures Infectious Medical History: Denies: Hx Hepatitis Past Surgical History: Reports: Hx Abdominal Surgery, Hx Orthopedic Surgery - 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 - Immunizations Hx Diphtheria, Pertussis, Tetanus Vaccination: Yes Hx Pneumococcal Vaccination: 02/25/18 Review of Systems - Review of Systems Constitutional: No symptoms reported EENT: No symptoms reported Cardiovascular: No symptoms reported Respiratory: No symptoms reported Gastrointestinal: No symptoms reported Genitourinary: No symptoms reported Male Genitourinary: No symptoms reported Musculoskeletal: No symptoms reported Skin: No symptoms reported Hematologic/Lymphatic: No symptoms reported Neurological/Psychological: See HPI, Confusion, Anxiety, Speech impairment. denies: Loss of power, Paralysis -: Yes All other systems reviewed and negative Physical Exam - Vital signs Vitals: Temp Pulse Resp BP Pulse Ox 98.0 F 92 16 186/92 H 99 01/07/20 14:43 01/07/20 14:43 01/07/20 14:43 01/07/20 14:43 01/07/20 14:43 Interpretation: Hypertensive - Notes Notes: PHYSICAL EXAMINATION: GENERAL: Patient is a well-nourished well-developed 59-year-old male though in no apparent distress appears very frustrated having difficult time expressing himself. Gets highly anxious and try to find his words. HEAD: Atraumatic, normocephalic. EYES: Pupils equal round and reactive to light, extraocular movements intact, sclera anicteric, conjunctiva are normal. ENT: Nares patent, oropharynx clear without exudates. Moist mucous membranes. NECK: Normal range of motion, supple without lymphadenopathy LUNGS: Breath sounds clear to auscultation bilaterally and equal. No wheezes rales or rhonchi. HEART: Regular rate and rhythm without murmurs ABDOMEN: Soft, nontender, nondistended abdomen. No guarding, no rebound. No masses appreciated. Musculoskeletal: Examination patient's lower extremities show that the left foot is missing multiple digits. Also noted is exceptionally large circumference of patient's left lower extremity which has been documented in the past and a new wound appears on the left lateral fifth metatarsal area approximately 2 and half centimeters by 3 cm stage II ulcer. NEUROLOGICAL: Patient is unable to fully perform a neurologic exam. He attempts to follow commands but communication is difficult. Patient has good strength in his upper extremities. He has good hard candy batch mixer bilaterally. And is able to hold his arms without any drifting. Patient able to raise and lower bilateral lower extremities but unable to maintain elevation against gravity on either side. Facial features are symmetric. PSYCH: Very anxious and frustrated SKIN: Evaluation of patient's left lower extremity has been done in the past he is got thickening of his skin but no weeping is noted the girth of his left lower extremities is twice the size of the right. Recent CT of his lower extremity was concern for cellulitis which he was treated for. Course - Re-evaluation Re-evalutation: 01/07/20 16:54 Reevaluation the patient shows him to be coming more anxious and aggressive and refusing further interventions. After my initial H&P and discussion with the patient he did agree to let us do some labs and some CT of his head and then he started demanding to leave. Currently there is no power of insurance attorney for the patient I was just informed that the had arrived and informed them that patient has not been to dialysis for this past 2 times and he is noncompliant with his medications. Patient is still showing some understanding and reason therefore I believe him to be competent in his decisions to want to leave. I went in with the police as well as the nursing staff and informed patient that I cannot hold him here legally but he must understand that because he is refusing dialysis and has not been there in the to pass times that he is damaging his organs and if he does not get it taken care of now or relatively soon he will I asked patient if he understood this and he said yes. I attempted to find the however she was not available in the lobby when I went out to find her. I went back to the charge nurse and then patient's nurse Dorota had his daughter on the line. She was originally called at his arrival and informed nursing that they would be here relatively soon 5 hours went by with them only calling back twice and not appearing. I discussed with her and informed her as well that if patient does not get dialysis within the next 24 hours that it will be causing endorgan failure and patient can . Patient's daughter expressed understanding and frustration because they are unable to make him take his medications or go to dialysis. They are attempting to get power of insurance attorney but have not done so far. I explained to the patient's daughter that at any time she wants to bring him back here we would be more than happy to take care of him. I once again went from the phone back to patient's room I explained to him one more time and offered to see if we could get dialysis done today and patient refused again. - Vital Signs Vital signs: Temp Pulse Resp BP Pulse Ox 98.0 F 92 16 186/92 H 99 01/07/20 14:43 01/07/20 14:43 01/07/20 14:43 01/07/20 14:43 01/07/20 14:43 Patient's labs also came back showing that he has a urinary tract infection and even though he is leaving AGAINST MEDICAL ADVICE I am going to call him in a prescription. I also informed the daughter that he has a wound on his left foot that needs to be addressed and cleaned he will not allow us to do that here. I have informed her that that could lead to more surgeries as well as amputation of is not taking care of. I will use Bactrim for the UTI because it should help also with the skin decubitus that is on the bottom of his left foot. - Laboratory Result Diagrams: 01/07/20 11:10 01/07/20 11:10 Laboratory results interpreted by me: 01/07/20 01/07/20 01/07/20 11:10 11:10 11:10 RBC 3.04 L Hgb 8.9 L Hct 26.8 L RDW 15.4 H Lymph % (Auto) 12.3 L Baso % (Auto) 2.1 H Sodium 134.6 L BUN 43 H Creatinine 6.19 H Est GFR ( Amer) 11 L Est GFR (MDRD) Non-Af 9 L Glucose 114 H Calcium 8.0 L Total Protein 6.0 L Albumin 2.7 L Urine Protein >=500 H Urine Glucose (UA) 50 H Urine Blood MODERATE H Ur Leukocyte Esterase LARGE H Discharge - Discharge Clinical Impression: ESRD (end stage renal disease) on dialysis, Wound of skin Urinary tract infection Qualifiers: Urinary tract infection type: site unspecified Hematuria presence: with hematuria Qualified Code(s): N39.0 - Urinary tract infection, site not specified; R31.9 - Hematuria, unspecified Disposition: AGAINST MEDICAL ADVICE Prescriptions: Sulfamethoxazole/Trimethoprim [Bactrim Ds Tablet] 1 each PO BID #20 tablet Referrals: JADIEL SHARPE MD [Primary Care Provider] - Follow up as needed
[2020-01-07 14:44] VITALS: BP 186/92
[2020-01-07 14:46] LABS: APPEARANCE,URINE TURBID; BILIRUBIN,URINE NEGATIVE (NEGATIVE); COLOR,URINE YELLOW; GLUCOSE, URINE 50 mg/dL (NEGATIVE); KETONES,URINE NEGATIVE (NEGATIVE); LEUKOCYTE ESTERASE,URINE LARGE (NEGATIVE); NITRITE,URINE NEGATIVE (NEGATIVE); PROTEIN,URINE >=500 mg/dL (NEGATIVE); UROBILINOGEN,URINE NEGATIVE mg/dL (<2.0)
--- NOTE | 2020-01-07 15:03 | RADIOLOGY REPORT (SQ) ---
EXAM DESCRIPTION: CT HEAD WITHOUT IMAGES COMPLETED DATE/TIME: 01/07/2020 2:51 pm REASON FOR STUDY: Altered mental COMPARISON: MRI 12/23/2019 TECHNIQUE: Axial images acquired through the brain without intravenous contrast. Images reviewed wi th bone, brain and subdural windows. Additional sagittal and coronal reconstructions were generated. Images stored on PACS. All CT scanners at this facility use dose modulation, iterative reconstruction, and/or weight based d osing when appropriate to reduce radiation dose to as low as reasonably achievable (ALARA). [facility]: Dose Right [facility]: CareDose [facility]: Dose Right [facility]: Teradose 4D [facility]: MindJolt RADIATION DOSE: CT Rad equipment meets quality standard of care and radiation dose reduction techniq ues were employed. CTDIvol: 53.2 mGy. DLP: 1177 mGy-cm.mGy. LIMITATIONS: None. FINDINGS: VENTRICLES: Prominent. CEREBRUM: No masses. No hemorrhage. No midline shift. Stable large area of infarction left MCA ter ritory. No evidence for acute infarction. CEREBELLUM: No masses. No hemorrhage. No alteration of density. No evidence for acute infarction. EXTRAAXIAL SPACES: Age-related involutional change. No fluid collections. No masses. ORBITS AND GLOBE: No intra- or extraconal masses. Normal contour of globe without masses. CALVARIUM: No fracture. PARANASAL SINUSES: No fluid or mucosal thickening. SOFT TISSUES: No mass or hematoma. OTHER: No other significant finding. IMPRESSION: Known left MCA infarct. No evidence of hemorrhage. EVIDENCE OF ACUTE STROKE: NO. TECHNICAL DOCUMENTATION: JOB ID: [id number] Quality ID # [id number]: Final reports with documentation of one or more dose reduction techniques (e.g., Au tomated exposure control, adjustment of the mA and/or kV according to patient size, use of iterative reconstruction technique) 2010 [employer]- All Rights Reserved Reading location - IP/workstation name: [email or web address]
--- NOTE | 2020-01-07 15:18 | RADIOLOGY REPORT (SQ) ---
EXAM DESCRIPTION: FOOT LEFT COMPLETE IMAGES COMPLETED DATE/TIME: 01/07/2020 2:44 pm REASON FOR STUDY: foot wound/gangrene COMPARISON: 07/25/2019 NUMBER OF VIEWS: Three views. TECHNIQUE: AP, lateral and oblique radiographic images acquired of the left foot. LIMITATIONS: None. FINDINGS: Prior amputation of the 3rd through 5th metatarsal shafts. Old ankle fusion. No evidence of acute osteomyelitis or foreign body. Plantar ulcer level of base of 5th metatarsal. IMPRESSION: No evidence of osteomyelitis. TECHNICAL DOCUMENTATION: JOB ID: [id number] 2010 [employer]- All Rights Reserved Reading location - IP/workstation name: [email or web address]
[2020-01-07 16:10] LABS: ABSOLUTE BASOPHILS # (AUTO) 0.2 10^3/uL (0.0-0.2); ABSOLUTE EOSINOPHILS # (AUTO) 0.1 10^3/uL (0.0-0.6); ABSOLUTE MONOCYTES (AUTO) 0.6 10^3/uL (0.1-1.4); ABSOLUTE NEUT (AUTO) 6.4 10^3/uL (1.7-8.2); BASOPHILS % (AUTO) 2.1 % (0-2); EOSINOPHILS % (AUTO) 1.5 % (0-6); HEMATOCRIT 26.8 % (37.9-51.0); HEMOGLOBIN 8.9 g/dL (13.5-17.0); LYMPHOCYTES % (AUTO) 12.3 % (13-45); MEAN CORPUSCULAR HEMOGLOBIN 29.2 pg (27.0-33.4); MEAN CORPUSCULAR HGB CONC 33.1 g/dL (32.0-36.0); MEAN CORPUSCULAR VOLUME 88 fl (80-97); MONOCYTES % (AUTO) 7.5 % (3-13); PLATELET COUNT 446 10^3/uL (150-450); RED BLOOD COUNT 3.04 10^6/uL (4.35-5.55); RED CELL DISTRIBUTION WIDTH 15.4 % (11.5-14.0); SEGMENTED NEUTROPHILS % (AUTO) 76.6 % (42-78); TOTAL CELLS COUNTED % (AUTO) 100 %; WHITE BLOOD COUNT 8.4 10^3/uL (4.0-10.5)
[2020-01-07 16:27] LABS: ALBUMIN 2.7 g/dL (3.5-5.0); ALKALINE PHOSPHATASE 118 U/L (38-126); ANION GAP 9 (5-19); ASPARTATE AMINO TRANSFERASE 27 U/L (17-59); BILIRUBIN,DIRECT 0.1 mg/dL (0.0-0.4); BILIRUBIN,TOTAL 0.4 mg/dL (0.2-1.3); BLOOD UREA NITROGEN 43 mg/dL (7-20); CARBON DIOXIDE 26 mmol/L (22-30); CHLORIDE 100 mmol/L (98-107); GLUCOSE 114 mg/dL (75-110); POTASSIUM 4.3 mmol/L (3.6-5.0)
[2020-01-07 16:55] LABS: TROPONIN I 0.053 ng/mL
--- NOTE | 2020-01-08 00:32 | EKG REPORT ---
SEVERITY:- ABNORMAL ECG - SINUS RHYTHM VENTRICULAR PREMATURE COMPLEX LEFT ATRIAL ABNORMALITY PROBABLE LVH WITH SECONDARY REPOL ABNRM BORDERLINE PROLONGED QT INTERVAL : Confirmed by: Anthony Wolfe 08-Jan-2020 00:32:03
--- OUTSIDE RECORDS SUMMARY | 2020-01-08 15:29 | XMS REPORT ---
:1960 Author Organization [facility] Address [facility] [place] [address] [place] [address] Care Team Providers Name Role Phone Unavailable Unavailable Unavailable Allergies, Adverse Reactions, Alerts This patient has no known allergies or adverse reactions. Medications This patient has no known medications. Problems This patient has no known problems. Procedures This patient has no known procedures. Results This patient has no known results. Encounters Start End Encounter Admission Attending Care Care Encounter Date/Time Date/Time Type Type Clinicians Facility Department ID 2019-06-05 2019-06-05 Outpatient [facility] [id number] 00:00:00 00:00:00 _[id number] Social History This patient has no known social history. Vital Signs This patient has no known vital signs.
== END 2020-01-07 16:45 | disposition left against medical advice (07) ==
LOC: ER 10:10
DX: N39.0 Urinary tract infection, site not specified (principal); R31.9 Hematuria, unspecified; R41.0 Disorientation, unspecified; S91.302A Unspecified open wound, left foot, initial encounter; X58.XXXA Exposure to other specified factors, initial encounter; I12.0 Hypertensive chronic kidney disease with stage 5 chronic kidney disease or end stage renal disease; E11.22 Type 2 diabetes mellitus with diabetic chronic kidney disease; N18.6 End stage renal disease; I50.9 Heart failure, unspecified; F41.9 Anxiety disorder, unspecified; Z86.73 Personal history of transient ischemic attack (TIA), and cerebral infarction without residual deficits
CPT/HCPCS: 36415; 70450; 80053; 81001; 83605; 83880; 84484; 85025; 93005; 93010; 99285

== ENCOUNTER 2020-01-09 14:02 | Inpatient (IN) | payer MEDICARE, MEDICAID ==
[2020-01-09 14:30] LABS: ABSOLUTE BASOPHILS # (AUTO) 0.1 10^3/uL (0.0-0.2); ABSOLUTE EOSINOPHILS # (AUTO) 0.3 10^3/uL (0.0-0.6); ABSOLUTE LYMPHOCYTES (AUTO) 0.8 10^3/uL (0.5-4.7); ABSOLUTE MONOCYTES (AUTO) 0.4 10^3/uL (0.1-1.4); ABSOLUTE NEUT (AUTO) 6.6 10^3/uL (1.7-8.2); BASOPHILS % (AUTO) 1.1 % (0-2); HEMATOCRIT 24.4 % (37.9-51.0); HEMOGLOBIN 8.2 g/dL (13.5-17.0); LYMPHOCYTES % (AUTO) 9.8 % (13-45); MEAN CORPUSCULAR HGB CONC 33.4 g/dL (32.0-36.0); MEAN CORPUSCULAR VOLUME 87 fl (80-97); MONOCYTES % (AUTO) 5.4 % (3-13); PLATELET COUNT 423 10^3/uL (150-450); RED BLOOD COUNT 2.81 10^6/uL (4.35-5.55); RED CELL DISTRIBUTION WIDTH 14.9 % (11.5-14.0); SEGMENTED NEUTROPHILS % (AUTO) 79.7 % (42-78); TOTAL CELLS COUNTED % (AUTO) 100 %; WHITE BLOOD COUNT 8.2 10^3/uL (4.0-10.5)
[2020-01-09 14:57] LABS: ALBUMIN 2.7 g/dL (3.5-5.0); ALCOHOL < 10 mg/dL (NONE DETECTED); ALKALINE PHOSPHATASE 113 U/L (38-126); ANION GAP 8 (5-19); ASPARTATE AMINO TRANSFERASE 26 U/L (17-59); BILIRUBIN,DIRECT 0.1 mg/dL (0.0-0.4); BILIRUBIN,TOTAL 0.3 mg/dL (0.2-1.3); BLOOD UREA NITROGEN 48 mg/dL (7-20); CARBON DIOXIDE 24 mmol/L (22-30); CHLORIDE 101 mmol/L (98-107); GLUCOSE 137 mg/dL (75-110); POTASSIUM 4.6 mmol/L (3.6-5.0); TOTAL PROTEIN 5.8 g/dL (6.3-8.2)
[2020-01-09] MEDS ORDERED: LEVETIRACETAM 1000 MG/NACL-ISO 1,000 MG/100 ML RTUPB IV ONE (15:13)
--- NOTE | 2020-01-09 15:22 | ER Document Report ---
ED General - General Chief Complaint: Probable Seizure Stated Complaint: POSSIBLE SEIZURE Time Seen by Provider: 01/09/20 15:01 Primary Care Provider: JADIEL SHARPE MD [Primary Care Provider] - Follow up as needed TRAVEL OUTSIDE OF THE [place] IN LAST 30 DAYS: No - HPI Notes: Patient is a 59-year-old male brought in the emergency department for evaluation by EMS after an apparent seizure. Patient cannot offer any history at this time, entire history is obtained from nursing staff, EMS notes, and [facility] records. This is a 59-year-old gentleman who was recently discharged from the hospital. He had a right MCA stroke. While in the hospital he had a catheter placed for dialysis. He was seen recently in the emergency department as he had been noncompliant with his medications, was refusing dialysis. Evidently today he was with family at [facility]. He was seen to drop and had seizure-like activity. He was apparently postictal for EMS. Upon becoming more alert, evidently the patient was extremely combative. IM ketamine was administered by EMS prior to arrival. The patient seems unable to answer any of my questions. He does seem to have some mild expressive aphasia, I am unsure as to what degree this is been affected by the ketamine administration. - Related Data Allergies/Adverse Reactions: No Known Allergies Allergy (Verified 06/10/18 17:31) Home Medications: Carvedilol, Isosorb, Glipizide, Valsartan, Calcitrol, Ergocalciaerol, Atorvastatin, Hydralazine, Nifedipine, Divalproex Past Medical History - General Information source: Patient - Social History Smoking Status: Former Smoker Frequency of alcohol use: Heavy - Was a heavy drinker Family History: Reviewed & Not Pertinent, CAD, Hypertension, Malignancy - Past Medical History Cardiac Medical History: Reports: Hx Congestive Heart Failure - Chronic combined systolic and diastolic congestive heart failure, Hx Hypercholesterolemia, Hx Hypertension, Hx Peripheral Vascular Disease Denies: Hx Atrial Fibrillation, Hx Coronary Artery Disease, Hx DVT, Hx Heart Attack, Hx Pulmonary Embolism Pulmonary Medical History: Reports: Hx Pneumonia, Hx Respiratory Failure Denies: Hx Asthma, Hx Bronchitis, Hx COPD, Hx Tuberculosis Neurological Medical History: Denies: Hx Seizures, Hx Parkinson's Disease Endocrine Medical History: Reports: Hx Diabetes Mellitus Type 2. Denies: Hx Diabetes Mellitus Type 1, Hx Hyperthyroidism, Hx Hypothyroidism Renal/ Medical History: Denies: Hx Benign Prostatic Hyperplasia, Hx End Stage Renal Disease, Hx Kidney Stones, Hx Peritoneal Dialysis GI Medical History: Reports: Hx Gastroesophageal Reflux Disease. Denies: Hx Cirrhosis, Hx Crohn's Disease, Hx Hepatitis, Hx Ulcer, Hx Ulcerative Colitis Musculoskeletal Medical History: Reports Hx Arthritis, Denies Hx Gout, Denies Hx Multiple Sclerosis, Reports Hx Musculoskeletal Deformity, Reports Hx Musculo skeletal Trauma Skin Medical History: Denies Hx Eczema, Denies Hx Psoriasis Psychiatric Medical History: Denies: Hx Bipolar Disorder, Hx Depression, Hx Schizophrenia Traumatic Medical History: Reports: Hx Fractures Infectious Medical History: Denies: Hx Hepatitis Past Surgical History: Reports: Hx Abdominal Surgery, Hx Orthopedic Surgery - 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 fourth and fifth toes in 2015 - Immunizations Hx Diphtheria, Pertussis, Tetanus Vaccination: Yes Hx Pneumococcal Vaccination: 02/25/18 Review of Systems - Review of Systems -: Yes ROS unobtainable due to patient's medical condition Physical Exam - Vital signs Vitals: BP 118/66 01/09/20 14:04 - Notes Notes: This is a 59-year-old male who appears his stated age, no acute distress. He is resting in the bed when I walked into the room. He does respond to verbal stimuli. He angrily answers "no" to most questions, does exhibit some stuttering and expressive aphasia. Head is normocephalic and appears atraumatic, pupils are equal round, reactive to light. Oral mucosa is moist. Heart is regular rate and rhythm, lungs are clear to auscultation bilaterally. Well healed laparotomy scar noted to abdomen. Abdomen is soft, appears nontender, with normoactive bowel sounds. Patient moves all 4 extremities spontaneously, but will not cooperate with strength testing, will not answer questions, sensation does appear to be intact based on observation, but no verbal confirmation given. Skin is warm and dry. He does appear to have an ulceration on the plantar aspect of the left foot with pink, noninfected appearing tissue surrounding. No significant tenderness. Course - Re-evaluation Re-evalutation: 01/09/20 15:18 Patient is a 59-year-old male who presents to the emergency department for evaluation after a probable seizure. The patient has no seizure history. He did have a significant right MCA infarct recently. No hemorrhagic component was ever identified. The patient was noted to be a heavy drinker as well. I do suspect there may be some aspect of alcohol withdrawal. Patient is currently stable, he did receive IM ketamine per EMS protocol for agitation. I will give him a gram of Keppra. CT scan of the head is ordered. He is currently stable. Despite receiving no dialysis, the patient's electrolytes are unremarkable. We will continue to monitor. 01/09/20 17:15 Patient has been extremely agitated get sleepy. He tries to stand but looks as if he is going to fall asleep. He has been able to be redirected into his bed, but I am concerned about his safety. I do have the possibility of restraints listed as an option for nursing. Otherwise, I have discussed this patient with Hilaria Jones. She is familiar with him, and will reach out to family in regards to placement options. 01/09/20 19:14 Patient does have a urinary tract infection, but is having for some time. He does not have a leukocytosis. He is not septic or toxic. I did order Rocephin, started him on regular meds. He does not meet admission criteria. He will be a social hold here. Case management involved. - Vital Signs Vital signs: Temp Pulse Resp BP Pulse Ox 98.2 F 24 H 148/85 H 94 01/09/20 18:03 01/09/20 21:01 01/09/20 21:00 01/09/20 21:01 - Laboratory Result Diagrams: 01/09/20 14:10 01/09/20 14:10 Laboratory results interpreted by me: 01/09/20 01/09/20 01/09/20 14:10 14:10 17:40 RBC 2.81 L Hgb 8.2 L Hct 24.4 L RDW 14.9 H Lymph % (Auto) 9.8 L Seg Neutrophils % 79.7 H Sodium 133.4 L BUN 48 H Creatinine 6.20 H Est GFR ( Amer) 11 L Est GFR (MDRD) Non-Af 9 L Glucose 137 H POC Glucose Calcium 8.0 L Total Protein 5.8 L Albumin 2.7 L Urine Protein >=500 H Urine Glucose (UA) 50 H Urine Blood SMALL H Ur Leukocyte Esterase LARGE H 01/09/20 23:13 RBC Hgb Hct RDW Lymph % (Auto) Seg Neutrophils % Sodium BUN Creatinine Est GFR ( Amer) Est GFR (MDRD) Non-Af Glucose POC Glucose 133 H Calcium Total Protein Albumin Urine Protein Urine Glucose (UA) Urine Blood Ur Leukocyte Esterase - Diagnostic Test Radiology reviewed: Reports reviewed Radiology results interpreted by me: 01/09/20 19:[address] 01/09/20 15:12 IMPRESSION: 1. No significant interval change. Involving left MCA infarct as expected, no acute intracranial hemorrhage, mass, or evidence of acute territorial infarct. 2. Moderate chronic small vessel ischemic change and intracranial atherosclerosis is stable. EVIDENCE OF ACUTE STROKE: NO. Discharge - Discharge Clinical Impression: Noncompliance with medication regimen Urinary tract infection Qualifiers: Urinary tract infection type: site unspecified Condition: Stable Disposition: OTHER Instructions: Urinary Tract Infection ([facility]) Referrals: JADIEL SHARPE MD [Primary Care Provider] - Follow up as needed
--- NOTE | 2020-01-09 15:55 | RADIOLOGY REPORT (SQ) ---
EXAM DESCRIPTION: CT HEAD WITHOUT IMAGES COMPLETED DATE/TIME: 01/09/2020 2:38 pm REASON FOR STUDY: seizure, recent CVA, ?head injury. Recent left MCA infarct. COMPARISON: 01/07/2020. MRI brain 12/23/2019. TECHNIQUE: Axial images acquired through the brain without intravenous contrast. Images reviewed wi th bone, brain and subdural windows. Additional sagittal and coronal reconstructions were generated. Images stored on PACS. All CT scanners at this facility use dose modulation, iterative reconstruction, and/or weight based d osing when appropriate to reduce radiation dose to as low as reasonably achievable (ALARA). [facility]: Dose Right [facility]: CareDose [facility]: Dose Right [facility]: Teradose 4D [facility]: [employer] RADIATION DOSE: CT Rad equipment meets quality standard of care and radiation dose reduction techniq ues were employed. CTDIvol: 55.2 mGy. DLP: 1167 mGy-cm. mGy. LIMITATIONS: None. FINDINGS: VENTRICLES: Normal size and contour. CEREBRUM: No masses. No hemorrhage. No midline shift. No evidence for acute infarction. Persistent wedge shaped area of hypodense attenuation in the left MCA distribution, consistent with evolving al bacute to chronic left MCA infarct. Otherwise normal patterson-white matter differentiation. Moderate pa tchy periventricular and deep white matter hypodense attenuation consistent with moderate chronic sma ll vessel ischemic change. There is intracranial atherosclerosis. CEREBELLUM: No masses. No hemorrhage. No alteration of density. No evidence for acute infarction. EXTRAAXIAL SPACES: No fluid collections. No masses. ORBITS AND GLOBE: No intra- or extraconal masses. Normal contour of globe without masses. CALVARIUM: No fracture. PARANASAL SINUSES: No fluid or mucosal thickening. SOFT TISSUES: No mass or hematoma. OTHER: No other significant finding. IMPRESSION: 1. No significant interval change. Involving left MCA infarct as expected, no acute intracranial hem orrhage, mass, or evidence of acute territorial infarct. 2. Moderate chronic small vessel ischemic change and intracranial atherosclerosis is stable. EVIDENCE OF ACUTE STROKE: NO. COMMENT: Quality ID # [id number]: Final reports with documentation of one or more dose reduction techniques (e.g., Automated exposure control, adjustment of the mA and/or kV according to patient size, use of iterative reconstruction technique) TECHNICAL DOCUMENTATION: JOB ID: [id number] [employer]- All Rights Reserved Reading location - IP/workstation name: [id number]
[2020-01-09 18:08] LABS: APPEARANCE,URINE CLOUDY; BILIRUBIN,URINE NEGATIVE (NEGATIVE); COLOR,URINE YELLOW; GLUCOSE, URINE 50 mg/dL (NEGATIVE); KETONES,URINE NEGATIVE (NEGATIVE); LEUKOCYTE ESTERASE,URINE LARGE (NEGATIVE); NITRITE,URINE NEGATIVE (NEGATIVE); PROTEIN,URINE >=500 mg/dL (NEGATIVE); URINE SPECIFIC GRAVITY 1.011; UROBILINOGEN,URINE NEGATIVE mg/dL (<2.0)
[2020-01-09 18:18] LABS: URINE AMPHETAMINES SCREEN NEGATIVE; URINE BARBITURATES SCREEN NEGATIVE; URINE BENZODIAZEPINES SCREEN NEGATIVE; URINE COCAINE SCREEN NEGATIVE; URINE MARIJUANA (THC) SCREEN NEGATIVE; URINE METHADONE SCREEN NEGATIVE; URINE PHENCYCLIDINE SCREEN NEGATIVE
[2020-01-09] MEDS ORDERED: CEFTRIAXONE 1 GM/D5W RTU 1 GM/50 ML RTUPB IV ONE (18:30)
[2020-01-09] MEDS ORDERED: ACETAMINOPHEN 325 MG TABLET PO PRN (18:55)
[2020-01-09] MEDS ORDERED: ERGOCALCIFEROL (VITAMIN D2) 50000 UNIT (1.25 MG) CAPSULE PO SCH (19:00)
--- NOTE | 2020-01-09 19:50 | PSYCHOLOGICAL NOTE ---
Psych Note - Psych Note Date seen by psych provider: 01/09/20 Time seen by psych provider: 17:50 Psych Note: Reason for Consult: Family request Patient is currently unable to engage in evaluation. He presented after seizure. IM ketamine was administered by EMS prior to arrival due to combative behaviours upon becoming alert.
[2020-01-09] MEDS: HYDRALAZINE HCL 25 MG TABLET PO SCH (20:10)
[2020-01-09] MEDS: CARVEDILOL 12.5 MG TABLET PO SCH (20:11)
[2020-01-09] MEDS: ASPIRIN 81 MG TABLET, CHEWABLE PO SCH (20:11)
[2020-01-09] MEDS: BUMETANIDE 1 MG TABLET PO SCH (20:11)
[2020-01-09] MEDS: VALSARTAN 160 MG TABLET PO SCH (20:12)
[2020-01-09] MEDS: DIVALPROEX SODIUM 250 MG TAB.SR.24H PO SCH (20:12)
[2020-01-09] MEDS: ATORVASTATIN CALCIUM 40 MG TABLET PO SCH (22:17)
[2020-01-09] MEDS ORDERED: LORAZEPAM INJ 2 MG/1 ML VIAL IM ONE (23:06)
[2020-01-09] MEDS ORDERED: LORAZEPAM INJ 2 MG/1 ML VIAL IV ONE (23:08)
[2020-01-10] MEDS: HYDRALAZINE HCL 25 MG TABLET PO SCH ×3 (04:01→18:08)
[2020-01-10 06:33] LABS: ALBUMIN 2.6 g/dL (3.5-5.0); ALKALINE PHOSPHATASE 108 U/L (38-126); ANION GAP 11 (5-19); ASPARTATE AMINO TRANSFERASE 31 U/L (17-59); BILIRUBIN,DIRECT 0.2 mg/dL (0.0-0.4); BILIRUBIN,TOTAL 0.5 mg/dL (0.2-1.3); BLOOD UREA NITROGEN 51 mg/dL (7-20); CALCIUM 8.5 mg/dL (8.4-10.2); CARBON DIOXIDE 21 mmol/L (22-30); CHLORIDE 102 mmol/L (98-107); GLUCOSE 118 mg/dL (75-110); POTASSIUM 5.1 mmol/L (3.6-5.0); TOTAL PROTEIN 5.8 g/dL (6.3-8.2)
--- NOTE | 2020-01-10 07:45 | ER Document Report ---
Doctor's Note Notes: 01/10/20 07:43 Called to see patient due to aggressive behavior. Patient has a restraining order that has lapsed in terms of duration. Therefore I reordered restraints for the next 4 hours. Also patient vomited some coffee-ground appearing emesis. I have asked the staff to do a gastric call on this emesis. Further evaluation once we learn once we learned results of the emesis test to prove whether there is blood or not. Patient is hemodynamically stable. 01/10/20 08:44 Called to see patient because of vomiting coffee-ground emesis that is guaiac positive. Patient remains hemodynamically stable at this time. Patient is to receive IV Protonix and Zofran as needed for nausea and vomiting. Patient also is going to have a fecal occult blood [id number] test at the bedside to determine if he has melena. Patient is a chronic renal failure patient who has not been dialyzed in over a week. His laboratories show that his potassium is 5.1 and his BUN and creatinine is around 50. Most recent hemoglobin was 8.2 yesterday which is down from his baseline of 9.5-10. Most likely patient is having gastritis or gastric ulcer and further evaluation of his blood work and work-up of this upper GI bleed is pending at this time. And and creatinine is around 5 or 6. 01/10/20 13:36 Update on patient's status. Patient has had no further nausea and vomiting and no further coffee-ground emesis. Patient has had a CT scan without any contrast of his abdomen showing no acute process no evidence for any active bleed or ulcer or perforation. Patient also has an elevated uric acid which may explain why his right hand currently has swelling and redness and pain. Most likely patient has gouty arthritis right hand x-rays did not show any acute osseous process or any evidence of infection. 01/10/20 13:37 Patient is hemodynamically stable at this time. Patient's hemoglobin is 9.9 today. This hemoglobin is an improvement over yesterday's of 8.2. Case discussed with Dr. Hugo hospitalist, in hopes that we would be able to admit patient to upstairs due to this recent development of coffee-ground emesis. Our discussion led to the hospitalist service can consult on patient and help manage patient until he is placed. Inasmuch as patient has not dropped his hematocrit there is no indication for red blood cell transfusion therefore patient can remain in the ED until placement has occurred unless there is other further complication's. 01/10/20 13:40 Patient is prescribed IV Decadron 4 mg at this time to treat his gouty arthritis right hand. Currently patient is not taking p.o. therefore IV medications are required at this time.
[2020-01-10] MEDS ORDERED: NIFEDIPINE 10 MG CAPSULE PO SCH ×2 (08:00)
[2020-01-10] MEDS ORDERED: ONDANSETRON HCL INJ/PF 4 MG/2 ML SDV ONE (08:37)
[2020-01-10] MEDS ORDERED: PANTOPRAZOLE SODIUM 40 MG VIAL IV ONE ×2 (08:37→08:42)
[2020-01-10] MEDS ORDERED: ONDANSETRON HCL INJ/PF 4 MG/2 ML SDV IV ONE (08:41)
[2020-01-10 09:08] LABS: PROTHROMBIN TIME 13.4 SEC (11.4-15.4)
--- NOTE | 2020-01-10 09:11 | RADIOLOGY REPORT (SQ) ---
EXAM DESCRIPTION: CHEST SINGLE VIEW IMAGES COMPLETED DATE/TIME: 01/10/2020 8:46 am REASON FOR STUDY: vomiting blood COMPARISON: 12/27/2019 EXAM PARAMETERS: NUMBER OF VIEWS: One view. TECHNIQUE: Single frontal radiographic view of the chest acquired. RADIATION DOSE: NA LIMITATIONS: None. FINDINGS: LUNGS AND PLEURA: Improved aeration of the upper lobes with persistent hazy opacification seen of the right more so than left lung bases. No focal consolidation. Small bilateral pleural eff usions are present. No pneumothorax. MEDIASTINUM AND HILAR STRUCTURES: No masses. Contour normal. HEART AND VASCULAR STRUCTURES: Persistent cardiomegaly with central vascular congestion. BONES: No acute findings. HARDWARE: Interval placement of a dual-lumen catheter. OTHER: No other significant finding. IMPRESSION: Somewhat improved pulmonary examination with persistent cardiomegaly and central vascula r congestion. Interval placement of a dialysis catheter. TECHNICAL DOCUMENTATION: JOB ID: [id number] 2010 [employer]- All Rights Reserved Reading location - IP/workstation name: [email or web address]
[2020-01-10] MEDS: CALCIUM ACETATE 667 MG CAPSULE PO SCH ×3 (09:22→17:08)
[2020-01-10] MEDS: GLIPIZIDE XL 5 MG TAB.ER.24 PO SCH (09:22)
[2020-01-10] MEDS: ISOSORBIDE MONONITRATE 60 MG TAB.ER.24H PO SCH (09:22)
[2020-01-10] MEDS ORDERED: LORAZEPAM INJ 2 MG/1 ML VIAL IV ONE (09:59)
[2020-01-10 11:00] LABS: ABSOLUTE BASOPHILS # (AUTO) 0.1 10^3/uL (0.0-0.2); ABSOLUTE LYMPHOCYTES (AUTO) 0.9 10^3/uL (0.5-4.7); ABSOLUTE MONOCYTES (AUTO) 0.4 10^3/uL (0.1-1.4); ABSOLUTE NEUT (AUTO) 11.4 10^3/uL (1.7-8.2); BASOPHILS % (AUTO) 0.5 % (0-2); EOSINOPHILS % (AUTO) 0.2 % (0-6); HEMATOCRIT 29.8 % (37.9-51.0); HEMOGLOBIN 9.9 g/dL (13.5-17.0); LYMPHOCYTES % (AUTO) 7.2 % (13-45); MEAN CORPUSCULAR HEMOGLOBIN 28.9 pg (27.0-33.4); MEAN CORPUSCULAR HGB CONC 33.2 g/dL (32.0-36.0); MEAN CORPUSCULAR VOLUME 87 fl (80-97); MONOCYTES % (AUTO) 3.5 % (3-13); PLATELET COUNT 559 10^3/uL (150-450); RED BLOOD COUNT 3.43 10^6/uL (4.35-5.55); SEGMENTED NEUTROPHILS % (AUTO) 88.6 % (42-78); TOTAL CELLS COUNTED % (AUTO) 100 %; WHITE BLOOD COUNT 12.9 10^3/uL (4.0-10.5)
--- NOTE | 2020-01-10 11:12 | RADIOLOGY REPORT (SQ) ---
EXAM DESCRIPTION: FOREARM RIGHT IMAGES COMPLETED DATE/TIME: 01/10/2020 11:01 am REASON FOR STUDY: ABCESS COMPARISON: None. NUMBER OF VIEWS: Two views. TECHNIQUE: Two radiographic images acquired of the right forearm, including elbow and wrist in at le ast one projection. LIMITATIONS: None. FINDINGS: MINERALIZATION: Normal. BONES: No acute fracture. No worrisome bone lesions. Degenerative changes are seen of the elbow. A tiny ossicle seen of the dorsal wrist likely represents sequela of remote trauma. SOFT TISSUES: Mild, focal soft tissue prominence seen of the lateral distal forearm is nonspecific. OTHER: No other significant finding. IMPRESSION: Focal soft tissue prominence of the lateral distal forearm without underlying osseous ab normality. TECHNICAL DOCUMENTATION: JOB ID: [id number] 2010 [employer]- All Rights Reserved Reading location - IP/workstation name: [email or web address]
--- NOTE | 2020-01-10 11:14 | RADIOLOGY REPORT (SQ) ---
EXAM DESCRIPTION: HAND RIGHT 3 VIEWS IMAGES COMPLETED DATE/TIME: 01/10/2020 11:01 am REASON FOR STUDY: swollen hand COMPARISON: None. EXAM PARAMETERS: NUMBER OF VIEWS: Three views. TECHNIQUE: AP, lateral and oblique radiographic images acquired of the right hand. LIMITATIONS: Pulse oximeter partially obscures the distal index finger. FINDINGS: MINERALIZATION: Normal. BONES: No acute fracture or dislocation. No worrisome bone lesions. Degenerative changes are seen, predominantly affecting the metacarpal phalangeal joints. A tiny ossicle seen dorsal to the distal c arpal row likely represents chronic triquetral avulsion injury. JOINTS: No effusions. SOFT TISSUES: Mild, diffuse soft tissue edema. OTHER: No other significant finding. IMPRESSION: Mild, diffuse soft tissue edema without underlying osseous injury. TECHNICAL DOCUMENTATION: JOB ID: [id number] 2010 [employer]- All Rights Reserved Reading location - IP/workstation name: [email or web address]
[2020-01-10] MEDS: CARVEDILOL 12.5 MG TABLET PO SCH ×2 (11:20→18:08)
[2020-01-10] MEDS: ASPIRIN 81 MG TABLET, CHEWABLE PO SCH (11:20)
[2020-01-10] MEDS: BUMETANIDE 1 MG TABLET PO SCH ×2 (11:20→18:08)
[2020-01-10] MEDS: DIVALPROEX SODIUM 250 MG TAB.SR.24H PO SCH ×2 (11:21→18:09)
[2020-01-10] MEDS: CALCITRIOL 0.25 MCG CAPSULE PO SCH (11:21)
[2020-01-10] MEDS: NIFEDIPINE 30 MG TAB.ER.24 PO SCH (11:21)
[2020-01-10] MEDS: VALSARTAN 160 MG TABLET PO SCH ×2 (11:21→18:08)
[2020-01-10] MEDS: NITROFURANTOIN MONOHYD/M-CRYST 100 MG CAPSULE PO SCH ×2 (11:21→18:08)
--- NOTE | 2020-01-10 12:04 | RADIOLOGY REPORT (SQ) ---
EXAM DESCRIPTION: CT ABDOMEN NO ORAL OR IV IMAGES COMPLETED DATE/TIME: 01/10/2020 11:41 am REASON FOR STUDY: coffee ground emesis COMPARISON: None. TECHNIQUE: CT scan of the abdomen performed without intravenous contrast and without oral contrast. Images reviewed with lung, soft tissue, and bone windows. Reconstructed coronal and sagittal MPR im ages reviewed. All images stored on PACS. All CT scanners at this facility use dose modulation, iterative reconstruction, and/or weight based d osing when appropriate to reduce radiation dose to as low as reasonably achievable (ALARA). [facility]: Dose Right [facility]: CareDose [facility]: Dose Right [facility]: Teradose 4D [facility]: [employer] RADIATION DOSE: CT Rad equipment meets quality standard of care and radiation dose reduction techniq ues were employed. CTDIvol: 17.2 mGy. DLP: 1058 mGy-cm.mGy. LIMITATIONS: None. FINDINGS: LOWER CHEST: Small bilateral pleural effusions right slightly greater than left there patc hy airspace disease the dependent portion of both lungs, edema versus pneumonia. Small hiatal hernia NONCONTRASTED LIVER, SPLEEN, ADRENALS: Evaluation limited by lack of IV contrast. No identified sign ificant masses. PANCREAS: No masses. No peripancreatic inflammatory changes. GALLBLADDER: No identified stones by CT criteria. No inflammatory changes to suggest cholecystitis. RIGHT KIDNEY AND URETER: No suspicious masses. Assessment limited by lack of IV contrast. No signif icant calcifications. No hydronephrosis or hydroureter. LEFT KIDNEY AND URETER: No suspicious masses. Assessment limited by lack of IV contrast. No signifi cant calcifications. No hydronephrosis or hydroureter. AORTA AND RETROPERITONEUM: No aneurysm. No retroperitoneal masses or adenopathy. BOWEL AND PERITONEAL CAVITY: No obvious masses or inflammatory changes. No free fluid. APPENDIX: Normal. ABDOMINAL WALL: No abdominal wall hernias. BONES: No significant findings. OTHER: No other significant finding. IMPRESSION: No acute intraabdominal findings on noncontrast Small bilateral pleural effusions with bilateral airspace, edema versus pneumonia TECHNICAL DOCUMENTATION: JOB ID: [id number] Quality ID # [id number]: Final reports with documentation of one or more dose reduction techniques (e.g., Au tomated exposure control, adjustment of the mA and/or kV according to patient size, use of iterative reconstruction technique) 2010 [employer]- All Rights Reserved Reading location - IP/workstation name: [email or web address]
[2020-01-10] MEDS: ERGOCALCIFEROL (VITAMIN D2) 50000 UNIT (1.25 MG) CAPSULE PO SCH (12:21)
[2020-01-10] MEDS ORDERED: VALPROATE SODIUM INJ/PF 500 MG/5 ML SDV IV ONE (13:23)
[2020-01-10] MEDS ORDERED: DEXAMETHASONE SOD PHOSPHATE INJ 4 MG/1 ML VIAL IV ONE (13:39)
[2020-01-10] MEDS ORDERED: CEFTRIAXONE 1 GM/D5W RTU 1 GM/50 ML RTUPB IV ONE (15:36)
--- NOTE | 2020-01-10 17:07 | PSYCHOLOGICAL NOTE ---
Psych Note - Psych Note Date seen by psych provider: 01/10/20 Time seen by psych provider: 12:00 Psych Note: Patient continues to be unable to engage in evaluation. Patient's medical concerns have continued. Due to his recent major stroke on Dec 20 2019, the behavioral health team have provided the TBI survival guide and addition resources for the family. These can be found at bedside of patient; family has not been back to visit the patient again today yet.
[2020-01-10] MEDS ORDERED: ACETAMINOPHEN 325 MG TABLET PO PRN (18:21)
[2020-01-10] MEDS ORDERED: IPRATROPIUM/ALBUTEROL 0.5-2.5 MG/3 ML AMPUL NEB PRN (18:21)
[2020-01-10] MEDS ORDERED: DEXTROSE 50%-WATER 25 GM/50 ML DISP.SYRIN IV PRN (19:43)
[2020-01-10] MEDS ORDERED: DEXTROSE 40% GEL 15 GM TUBE PO PRN ×2 (19:43)
[2020-01-10] MEDS ORDERED: GLUCAGON,HUMAN RECOMB 1 MG INJ IM PRN (19:43)
[2020-01-10] MEDS ORDERED: LABETALOL HCL INJ 20 MG/4 ML DISP.SYRIN IV PRN (19:47)
--- NOTE | 2020-01-10 19:48 | PDOC H&P ---
History of Present Illness Admission Date/PCP: 01/10/20 18:03 JADIEL SHARPE MD Patient complains of: acute metabolic encephalopathy History of Present Illness: JOHNATHON HORVATH JR is a 59 year old male, PMH of ESRD on HD, CHF, HLD, PVD, recent Left MCA stroke, who came in the ED due to altered mental status. He was recently discharged from [facility] for Pulm edema requiring intubation and Left MCA stroke that has left him aphasic. According to his daughter since being discharged home Johnathon has been very difficult to manage at home because of behavioral changes 2/2 to his stroke. He has refused dialysis and has not had one since discharge, he has refused to take any of his medications, has been defecating in the kitchen sink, has tried to drive a car despite being impaired. He was brought to the ED on 01/07/20 where he again refused admission and dialysis and was sent home. He was brought back again on January 08 after an apparent seizure. When he woke up in the ED he became very combative and was given ketamine. He was on social hold in the ED while delinquency prevention social worker was trying to place him on a rehab. Today, he developed about 2 episodes of hematemesis. Patients vital signs remained stable with no hemoglobin drop. Hospitalist service was asked to admit him. I had a family meeting with the patients , patients daughter terrie Goode [facility] regarding his current status. Rupa acted as the office clin asst for sign language. I discussed with them that the patient has refused dialysis and it is very unlikely that he would agree to this with how he is neurologically. I told them that in order to even administer any oral me dications to him let alone dialyze him would necessitate chemically sedating him and also physical restraints. His quality of life will be severely affected and that what we are aiming for is to avoid medical procedures that will just only harm him without having any actual benefit. They are understandably struggling to come up with a decision. Hospice was also discussed with them but they have not made a medical decision about this as well. Past Medical History Cardiac Medical History: Reports: Congestive Heart Failure - Chronic combined systolic and diastolic congestive heart failure, Hyperlipidema, Hypertension, Peripheral Vascular Disease Denies: Atrial Fibrillation, Coronary Artery Disease, DVT, Myocardial Infarction, Pulmonary Embolism Pulmonary Medical History: Reports: Pneumonia, Respiratory Failure Denies: Asthma, Bronchitis, Chronic Obstructive Pulmonary Disease (COPD), Tuberculosis Neurological Medical History: Reports: Ischemic CVA, Seizures Endocrine Medical History: Reports: Diabetes Mellitus Type 2 Denies: Diabetes Mellitus Type 1, Hyperthyroidism, Hypothyroidism Renal/ Medical History: Reports: End Stage Renal Disease GI Medical History: Reports: Gastroesophageal Reflux Disease Denies: Cirrhosis, Crohn's Disease, Hepatitis, Ulcerative Colitis Musculoskeltal Medical History: Reports: Arthritis Denies: Gout Skin Medical History: Denies: Eczema, Psoriasis Psychiatric Medical History: Denies: Bipolar Disorder, Depression Hematology: Reports: Anemia - Chronic anemia due to chronic kidney disease Denies: Bleeding Tendencies Past Surgical History Past Surgical History: Reports: Orthopedic Surgery - 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 Social History Smoking Status: Former Smoker Frequency of Alcohol Use: Heavy Hx Recreational Drug Use: No Drugs: None Hx Prescription Drug Abuse: No - Advance Directive Surrogate healthcare decision maker:: and daughter Family History Family History: CAD, Hypertension, Malignancy Parental Family History Reviewed: Yes Children Family History Reviewed: Yes Sibling(s) Family History Reviewed.: Yes Medication/Allergy Home Medications: Aspirin [Ecotrin 81 mg EC Tablet] 81 mg PO DAILY 12/12/18 Glipizide [Glipizide Xl] 10 mg PO [id number] 06/16/19 Carvedilol 25 mg PO Q12 #60 tablet 10/23/19 Hydralazine HCl [Apresoline 25 mg Tablet] 25 mg PO Q8 #90 tablet 10/23/19 Valsartan [Diovan 160 mg Tablet] 160 mg PO Q12 #60 tablet 10/23/19 Ergocalciferol (Vitamin D2) [Drisdol 50,000 unit (1.25MG) Capsule] 50,000 unit PO ESQUIVEL 12/20/19 Isosorbide Mononitrate [Imdur 60 mg Tablet.er] 60 mg PO QAM 12/20/19 Nifedipine [Nifedipine ER] 90 mg PO QAM 12/20/19 Atorvastatin Calcium [Lipitor 40 mg Tablet] 80 mg PO QHS #60 tablet 12/31/19 Calcitriol [Rocaltrol 0.25 mcg Capsule] 0.25 mcg PO DAILY #30 capsule 12/31/19 Divalproex Sodium [Depakote ER 250 mg Tablet] 250 mg PO Q12 #60 tab.sr.24h 12/31/19 Allergies/Adverse Reactions: No Known Allergies Allergy (Verified 06/10/18 17:31) Review of Systems ROS unobtainable: Due to mental status Physical Exam Vital Signs: Temp Pulse Resp BP Pulse Ox 98.0 F 18 163/79 H 98 01/10/20 15:00 01/10/20 17:00 01/10/20 17:00 01/10/20 17:01 Intake & Output 01/09/20 01/10/20 01/11/20 06:59 06:59 06:59 Intake Total 150 50 Balance 150 50 Weight 108.8 kg General appearance: PRESENT: no acute distress, other - uncooperative Eye exam: PRESENT: EOMI, PERRLA Ear exam: PRESENT: normal external ear exam Mouth exam: PRESENT: moist Neck exam: PRESENT: full ROM Respiratory exam: PRESENT: rales, symmetrical, unlabored Cardiovascular exam: PRESENT: RRR, +S1, +S2 GI/Abdominal exam: PRESENT: normal bowel sounds, soft. ABSENT: tenderness Extremities exam: PRESENT: full ROM, other - chronic wound left foot Neurological exam: PRESENT: alert, awake, aphasic. ABSENT: oriented to person, oriented to place, oriented to time Psychiatric exam: PRESENT: agitated, anxious Results Laboratory Results: 01/10/20 08:44 01/10/20 05:55 01/10/20 01/10/20 01/10/20 05:55 08:30 08:44 WBC RBC Hgb Hct MCV MCH MCHC RDW Plt Count Seg Neutrophils % Sodium 134.3 L Potassium 5.1 H Chloride 102 Carbon Dioxide 21 L Anion Gap 11 BUN 51 H Creatinine 5.92 H Est GFR ( Amer) 12 L Glucose 118 H Lactic Acid 1.5 Uric Acid Calcium 8.5 Total Bilirubin 0.5 AST 31 Alkaline Phosphatase 108 Total Protein 5.8 L Albumin 2.6 L Lipase 26.6 Blood Type Antibody Screen 01/10/20 01/10/20 01/10/20 08:44 08:44 10:40 WBC 12.9 H RBC 3.43 L Hgb 9.9 L Hct 29.8 L MCV 87 MCH 28.9 MCHC 33.2 RDW 15.0 H Plt Count 559 H Seg Neutrophils % 88.6 H Sodium Potassium Chloride Carbon Dioxide Anion Gap BUN Creatinine Est GFR ( Amer) Glucose Lactic Acid Uric Acid 9.6 H Calcium Total Bilirubin AST Alkaline Phosphatase Total Protein Albumin Lipase Blood Type O POSITIVE Antibody Screen NEGATIVE Impressions: Head CT 01/09/20 15:12 IMPRESSION: 1. No significant interval change. Involving left MCA infarct as expected, no acute intracranial hemorrhage, mass, or evidence of acute territorial infarct. 2. Moderate chronic small vessel ischemic change and intracranial atherosc lerosis is stable. EVIDENCE OF ACUTE STROKE: NO. Forearm X-Ray 01/10/20 00:00 IMPRESSION: Focal soft tissue prominence of the lateral distal forearm without underlying osseous abnormality. Chest X-Ray 01/10/20 08:36 IMPRESSION: Somewhat improved pulmonary examination with persistent cardiomegaly and central vascular congestion. Interval placement of a dialysis catheter. Abdomen CT 01/10/20 09:45 IMPRESSION: No acute intraabdominal findings on noncontrast Small bilateral pleural effusions with bilateral airspace, edema versus pneumonia Hand X-Ray 01/10/20 09:58 IMPRESSION: Mild, diffuse soft tissue edema without underlying osseous injury. Assessment and Plan - Diagnosis (1) Acute metabolic encephalopathy Is this a current diagnosis for this admission?: Yes Plan: - has been refusing medications including dialysis since discharge from hospital 12/20/19 - came in with 1 episode of seizures too - this is likely because of neurologic changes from recent stroke on top of missed dialysis - please refer to ACP note regarding discussions with his family - haldol PRN for agitation - Ativan PRN for seizures (2) Seizure Is this a current diagnosis for this admission?: Yes Plan: - had a seizure at home EMS called - he has not had dialysis since discharge so I suspect this is 2/2 to uremia - started keppra IV but ultimately what he needs is regular dialysis - PRN ativan for seizure - will order CT head I doubt if he will stay still for an MRI (3) ESRD (end stage renal disease) on dialysis Is this a current diagnosis for this admission?: Yes Plan: - has been refusing dialysis since discharge - has a permacath - Crea 5.9 - K 5.1 - Nephro consulted. Will need dialysis tomorrow (4) Left acute arterial ischemic stroke, MCA (middle cerebral artery) Is this a current diagnosis for this admission?: Yes Plan: - recent Left MCA infarct Nov 2019 - minimal motor deficit but he has suffered significant expressive aphasia as well as behavioral changes - continue lipitor, carvedilol, - holding aspirin due to hematemesis (5) Hypertension Qualifiers: Hypertension type: essential hypertension Qualified Code(s): I10 - Essential (primary) hypertension Is this a current diagnosis for this admission?: Yes Plan: - BP 163/79 - resumed all home meds - PRN labetalol (6) Diabetes mellitus type 2 in obese Is this a current diagnosis for this admission?: Yes Plan: - on sliding scale insulin - accucheck - hypoglycemia protocol (7) Hematemesis Qualifiers: Nausea presence: without nausea Qualified Code(s): K92.0 - Hematemesis Is this a current diagnosis for this admission?: Yes Plan: - 2 episodes of hematemesis - Hgb 9.9 - Bp stable - started on protonix 40 mg Iv BID - aspirin held - will monitor for now.He would likely need EGD if it recurs but given all his other medical problem I doubt if this will make a difference - Time Time Spent with patient: 35 or more minutes Medications reviewed and adjusted accordingly: Yes Anticipated Discharge Disposition: Halfway Facility Anticipated Discharge Timeframe: to be determined
[2020-01-10] MEDS: LORAZEPAM INJ 2 MG/1 ML VIAL IV PRN (21:00)
--- NOTE | 2020-01-10 21:43 | ADVANCED CARE ---
- Diagnosis (1) Acute metabolic encephalopathy Diagnosis Current: Yes (2) Seizure Diagnosis Current: Yes (3) ESRD (end stage renal disease) on dialysis Diagnosis Current: Yes (4) Left acute arterial ischemic stroke, MCA (middle cerebral artery) Diagnosis Current: Yes (5) Hypertension Diagnosis Current: Yes (6) Diabetes mellitus type 2 in obese Diagnosis Current: Yes (7) Hematemesis Diagnosis Current: Yes Attendance: , Daughter Prince lobo from [facility] Resuscitation Status: Full Code Discussion: I had a family meeting with the patients , patients daughter prince Lobo from [facility] regarding his current status. Lashell acted as the virtual assistant for sign language. I discussed with them that the patient has refused dialysis and it is very unlikely that he would agree to this with how he is neurologically. I told them that in order to even administer any oral medications to him let alone dialyze him would necessitate chemically sedating him and also physical restraints. His quality of life will be severely affected and that what we are aiming for is to avoid medical procedures that will just only harm him without having any actual benefit. They are understandably struggling to come up with a decision. Hospice was also discussed with them but they have not made a medical decision about this as well. Patient also has no HCPOA, and daughter lashell acting as surrogate. Document(s) Completed: none Time Spent: more than 30 minutes
[2020-01-10] MEDS: ATORVASTATIN CALCIUM 40 MG TABLET PO SCH (22:43)
[2020-01-10] MEDS: INSULIN LISPRO 100 UNIT/ML 3 ML VIAL SUBCUT SCH (22:50)
[2020-01-10] MEDS ORDERED: LEVETIRACETAM 500 MG/NACL-ISO 500 MG/100 ML RTUPB IV ONE (22:59)
[2020-01-11] MEDS: HEPARIN SOD (PORCINE) 5,000 UNIT/ML 1 ML VIAL SUBCUT SCH ×4 (01:25→21:32)
[2020-01-11] MEDS: LEVETIRACETAM 500 MG/NACL-ISO 500 MG/100 ML RTUPB IV SCH ×3 (01:26→21:32)
[2020-01-11] MEDS: HYDRALAZINE HCL 25 MG TABLET PO SCH ×3 (03:16→21:25)
[2020-01-11] MEDS: DEXTROSE 50%-WATER 25 GM/50 ML DISP.SYRIN IV PRN ×2 (06:38→21:32)
[2020-01-11 06:51] LABS: ALBUMIN 2.3 g/dL (3.5-5.0); ALKALINE PHOSPHATASE 87 U/L (38-126); ANION GAP 8 (5-19); ASPARTATE AMINO TRANSFERASE 40 U/L (17-59); BILIRUBIN,DIRECT 0.2 mg/dL (0.0-0.4); BILIRUBIN,TOTAL 0.4 mg/dL (0.2-1.3); BLOOD UREA NITROGEN 52 mg/dL (7-20); CALCIUM 8.3 mg/dL (8.4-10.2); CARBON DIOXIDE 24 mmol/L (22-30); CHLORIDE 103 mmol/L (98-107); PHOSPHORUS 6.8 mg/dL (2.5-4.5); POTASSIUM 4.6 mmol/L (3.6-5.0); TOTAL PROTEIN 5.1 g/dL (6.3-8.2)
[2020-01-11 07:08] LABS: ABSOLUTE BASOPHILS # (AUTO) 0.1 10^3/uL (0.0-0.2); ABSOLUTE EOSINOPHILS # (AUTO) 0.1 10^3/uL (0.0-0.6); ABSOLUTE LYMPHOCYTES (AUTO) 1.1 10^3/uL (0.5-4.7); ABSOLUTE MONOCYTES (AUTO) 0.6 10^3/uL (0.1-1.4); ABSOLUTE NEUT (AUTO) 7.5 10^3/uL (1.7-8.2); BASOPHILS % (AUTO) 1.1 % (0-2); EOSINOPHILS % (AUTO) 1.4 % (0-6); HEMATOCRIT 24.5 % (37.9-51.0); HEMOGLOBIN 8.2 g/dL (13.5-17.0); LYMPHOCYTES % (AUTO) 11.2 % (13-45); MEAN CORPUSCULAR HEMOGLOBIN 29.1 pg (27.0-33.4); MEAN CORPUSCULAR HGB CONC 33.3 g/dL (32.0-36.0); MEAN CORPUSCULAR VOLUME 87 fl (80-97); MONOCYTES % (AUTO) 6.7 % (3-13); RED BLOOD COUNT 2.81 10^6/uL (4.35-5.55); RED CELL DISTRIBUTION WIDTH 15.4 % (11.5-14.0); SEGMENTED NEUTROPHILS % (AUTO) 79.6 % (42-78); TOTAL CELLS COUNTED % (AUTO) 100 %; WHITE BLOOD COUNT 9.4 10^3/uL (4.0-10.5)
[2020-01-11 07:33] LABS: GLUCOSE 47 mg/dL (75-110)
[2020-01-11] MEDS: INSULIN LISPRO 100 UNIT/ML 3 ML VIAL SUBCUT SCH ×4 (08:00→21:25)
[2020-01-11] MEDS: GLIPIZIDE XL 5 MG TAB.ER.24 PO SCH (08:07)
[2020-01-11] MEDS: ISOSORBIDE MONONITRATE 60 MG TAB.ER.24H PO SCH (08:08)
[2020-01-11] MEDS: CALCIUM ACETATE 667 MG CAPSULE PO SCH ×3 (08:08→17:45)
[2020-01-11 08:18] LABS: PLATELET COUNT 449 10^3/uL (150-450)
[2020-01-11] MEDS: ASPIRIN 81 MG TABLET, CHEWABLE PO SCH (10:40)
[2020-01-11] MEDS: CARVEDILOL 12.5 MG TABLET PO SCH ×2 (10:43→17:45)
[2020-01-11] MEDS: VALSARTAN 160 MG TABLET PO SCH ×2 (10:43→17:45)
[2020-01-11] MEDS: BUMETANIDE 1 MG TABLET PO SCH ×2 (10:43→17:45)
[2020-01-11] MEDS: NIFEDIPINE 30 MG TAB.ER.24 PO SCH (10:43)
[2020-01-11] MEDS: CALCITRIOL 0.25 MCG CAPSULE PO SCH (10:43)
[2020-01-11] MEDS ORDERED: HEPARIN SOD (PORCINE) 1,000 UNIT/ML 10 ML VIAL IV PRN (12:37)
[2020-01-11] MEDS ORDERED: EPOETIN ALFA-EPBX 20,000 UNIT in SYRINGE, DISPOSABLE, 1 EACH IV PRN (12:37)
[2020-01-11] MEDS: HALOPERIDOL LACTATE INJ 5 MG/1 ML VIAL IV PRN ×2 (12:48→16:57)
--- NOTE | 2020-01-11 15:50 | EKG REPORT ---
SEVERITY:- ABNORMAL ECG - SINUS RHYTHM PROBABLE LEFT ATRIAL ABNORMALITY BORDERLINE LEFT AXIS DEVIATION ABNORMAL T, PROBABLE ISCHEMIA, ANT-LAT LEADS BORDERLINE PROLONGED QT INTERVAL : Confirmed by: Deonna Iniguez MD 11-Jan-2020 15:49:12
[2020-01-11] MEDS: CEFTRIAXONE 2 GM/D5W RTU 2 GM/50 ML RTUPB IV SCH (16:30)
--- NOTE | 2020-01-11 19:51 | PDOC PROGRESS REPORT ---
Subjective Date:: 01/11/20 Subjective:: JOHNATHON HORVATH JR is a 59 year old male, PMH of ESRD on HD, CHF, HLD, PVD, recent Left MCA stroke, who came in the ED due to altered mental status. He was recently discharged from [facility] for Pulm edema requiring intubation and Left MCA stroke that has left him aphasic. According to his daughter since being discharged home Johnathon has been very difficult to manage at home because of behavioral changes 2/2 to his stroke. He has refused dialysis and has not had one since discharge, he has refused to take any of his medications, has been defecating in the kitchen sink, has tried to drive a car despite being impaired. He was brought to the ED on 01/07/20 where he again refused admission and dialysis and was sent home. He was brought back again on January 08 after an apparent seizure. When he woke up in the ED he became very combative and was given ketamine. He was on social hold in the ED while director social welfare was trying to place him on a rehab. Today, he developed about 2 episodes of hematemesis. Patients vital signs remained stable with no hemoglobin drop. Hospitalist service was asked to admit him. I had a family meeting with the patients , patients daughter terrie Goode from [facility] regarding his current status. Rupa acted as the interpre ter for sign language. I discussed with them that the patient has refused dialysis and it is very unlikely that he would agree to this with how he is neurologically. I told them that in order to even administer any oral medications to him let alone dialyze him would necessitate chemically sedating h im and also physical restraints. His quality of life will be severely affected and that what we are aiming for is to avoid medical procedures that will just only harm him without having any actual benefit. They are understandably struggling to come up with a decision. Hospice was also discussed with them but they have not made a decision about this as well. D2 hospital stay. 01/11/20 He was seen and examined at bedside today. He was working with physical therapy using a walker. He agreed to get dialysis today. He still has expressive aphasia. No family was present today. Will call them tomorrow. I doubt if he can be discharged home as he can be very difficult to manage at home as what we already saw. The nurse also informed me today that they found pills under his pillow which is probably the pills he was given last night. He most likely pretended to swallow it but did not and hit it under his pillow. Reason For Visit: END STAGE RENAL DISEASE,DIALYSIS Physical Exam Vital Signs: Temp Pulse Resp BP Pulse Ox 98.2 F 79 16 150/70 H 98 01/11/20 16:20 01/11/20 16:20 01/11/20 16:20 01/11/20 16:20 01/11/20 16:20 Intake & Output 01/10/20 01/11/20 01/12/20 06:59 06:59 06:59 Intake Total 150 150 390 Output Total 2875 Balance 150 150 -2485 Weight 108.8 kg 108.8 kg General appearance: PRESENT: no acute distress Head exam: PRESENT: atraumatic, normocephalic Eye exam: PRESENT: EOMI, PERRLA Ear exam: PRESENT: normal external ear exam Mouth exam: PRESENT: moist Neck exam: PRESENT: full ROM Respiratory exam: PRESENT: clear to auscultation liseth, symmetrical, unlabored Cardiovascular exam: PRESENT: RRR, +S1, +S2 Vascular exam: PRESENT: normal capillary refill, pallor GI/Abdominal exam: PRESENT: normal bowel sounds, soft. ABSENT: rebound, tenderness Extremities exam: PRESENT: full ROM, other - chronic wound left feet with venous stasis dermatitis Musculoskeletal exam: PRESENT: full ROM Neurological exam: PRESENT: alert, awake, aphasic. ABSENT: oriented to person, oriented to place, oriented to time Skin exam: PRESENT: normal color Results Laboratory Results: 01/11/20 05:59 01/11/20 05:59 01/11/20 01/11/20 05:59 05:59 WBC 9.4 RBC 2.81 L Hgb 8.2 L Hct 24.5 L MCV 87 MCH 29.1 MCHC 33.3 RDW 15.4 H Plt Count 449 Seg Neutrophils % 79.6 H Sodium 135.0 L Potassium 4.6 Chloride 103 Carbon Dioxide 24 Anion Gap 8 BUN 52 H Creatinine 6.21 H Est GFR ( Amer) 11 L Glucose 47 L Calcium 8.3 L Phosphorus 6.8 H Magnesium 2.0 Total Bilirubin 0.4 AST 40 Alkaline Phosphatase 87 Total Protein 5.1 L Albumin 2.3 L Impressions: Head CT 01/09/20 15:12 IMPRESSION: 1. No significant interval change. Involving left MCA infarct as expected, no acute intracranial hemorrhage, mass, or evidence of acute territorial infarct. 2. Moderate chronic small vessel ischemic change and intracranial atheros clerosis is stable. EVIDENCE OF ACUTE STROKE: NO. Forearm X-Ray 01/10/20 00:00 IMPRESSION: Focal soft tissue prominence of the lateral distal forearm without underlying osseous abnormality. Chest X-Ray 01/10/20 08:36 IMPRESSION: Somewhat improved pulmonary examination with persistent cardiomegaly and central vascular congestion. Interval placement of a dialysis catheter. Abdomen CT 01/10/20 09:45 IMPRESSION: No acute intraabdominal findings on noncontrast Small bilateral pleural effusions with bilateral airspace, edema versus pneumonia Hand X-Ray 01/10/20 09:58 IMPRESSION: Mild, diffuse soft tissue edema without underlying osseous injury. Assessment and Plan - Diagnosis (1) Acute metabolic encephalopathy Is this a current diagnosis for this admission?: Yes Plan: - has been refusing medications including dialysis since discharge from hospital 12/20/19 - came in with 1 episode of seizures - this is likely because of neurologic changes from recent stroke on top of missed dialysis - please refer to ACP note regarding discussions with his family - haldol PRN for agitation - Ativan PRN for seizures - speech therapist to evaluate (2) Seizure Is this a current diagnosis for this admission?: Yes Plan: - had a seizure at home EMS called - he has not had dialysis since discharge so I suspect this is 2/2 to uremia - started keppra IV but ultimately what he needs is regular dialysis - PRN ativan for seizure (3) ESRD (end stage renal disease) on dialysis Is this a current diagnosis for this admission?: Yes Plan: - had dialysis in patient 01/11/20 - has a permacath - Crea 5.9 - K 5.1 - Nephro consulted. (4) Left acute arterial ischemic stroke, MCA (middle cerebral artery) Is this a current diagnosis for this admission?: Yes Plan: - recent Left MCA infarct Nov 2019 - minimal motor deficit but he has suffered significant expressive aphasia as well as behavioral changes - continue lipitor, carvedilol, - holding aspirin due to hematemesis (5) Hypertension Qualifiers: Hypertension type: essential hypertension Qualified Code(s): I10 - Essential (primary) hypertension Is this a current diagnosis for this admission?: Yes Plan: - BP 163/79 - resumed all home meds - PRN labetalol (6) Diabetes mellitus type 2 in obese Is this a current diagnosis for this admission?: Yes Plan: - on sliding scale insulin - accucheck - hypoglycemia protocol (7) Hematemesis Qualifiers: Nausea presence: without nausea Qualified Code(s): K92.0 - Hematemesis Is this a current diagnosis for this admission?: Yes Plan: - 2 episodes of hematemesis in the ED, no further episode since then - Hgb 9.9>8.2 - BP stable - started on protonix 40 mg IV BID - aspirin held - will monitor for now.He would likely need EGD if it recurs - Time Time Spent with patient: 35 or more minutes Medications reviewed and adjusted accordingly: Yes Anticipated Discharge Disposition: [facility] Facility Anticipated Discharge Timeframe: TBD
[2020-01-11] MEDS: ATORVASTATIN CALCIUM 40 MG TABLET PO SCH (21:26)
[2020-01-12] MEDS: HYDRALAZINE HCL 25 MG TABLET PO SCH ×4 (06:51→18:15)
[2020-01-12] MEDS: HEPARIN SOD (PORCINE) 5,000 UNIT/ML 1 ML VIAL SUBCUT SCH ×3 (06:54→22:37)
[2020-01-12 07:18] LABS: ABSOLUTE BASOPHILS # (AUTO) 0.1 10^3/uL (0.0-0.2); ABSOLUTE EOSINOPHILS # (AUTO) 0.1 10^3/uL (0.0-0.6); ABSOLUTE LYMPHOCYTES (AUTO) 1.3 10^3/uL (0.5-4.7); ABSOLUTE MONOCYTES (AUTO) 0.6 10^3/uL (0.1-1.4); ABSOLUTE NEUT (AUTO) 5.3 10^3/uL (1.7-8.2); BASOPHILS % (AUTO) 0.9 % (0-2); EOSINOPHILS % (AUTO) 1.8 % (0-6); HEMATOCRIT 28.1 % (37.9-51.0); HEMOGLOBIN 9.4 g/dL (13.5-17.0); LYMPHOCYTES % (AUTO) 17.3 % (13-45); MEAN CORPUSCULAR HEMOGLOBIN 28.9 pg (27.0-33.4); MEAN CORPUSCULAR HGB CONC 33.6 g/dL (32.0-36.0); MEAN CORPUSCULAR VOLUME 86 fl (80-97); RED BLOOD COUNT 3.26 10^6/uL (4.35-5.55); TOTAL CELLS COUNTED % (AUTO) 100 %; WHITE BLOOD COUNT 7.4 10^3/uL (4.0-10.5)
[2020-01-12 07:38] LABS: ALBUMIN 2.5 g/dL (3.5-5.0); ALKALINE PHOSPHATASE 88 U/L (38-126); ANION GAP 9 (5-19); ASPARTATE AMINO TRANSFERASE 44 U/L (17-59); BILIRUBIN,DIRECT 0.2 mg/dL (0.0-0.4); BILIRUBIN,TOTAL 0.3 mg/dL (0.2-1.3); BLOOD UREA NITROGEN 33 mg/dL (7-20); CALCIUM 8.5 mg/dL (8.4-10.2); CARBON DIOXIDE 25 mmol/L (22-30); CHLORIDE 102 mmol/L (98-107); PHOSPHORUS 5.3 mg/dL (2.5-4.5); POTASSIUM 4.3 mmol/L (3.6-5.0); TOTAL PROTEIN 5.7 g/dL (6.3-8.2)
[2020-01-12 07:41] LABS: PLATELET COUNT 410 10^3/uL (150-450)
[2020-01-12 07:46] LABS: GLUCOSE 52 mg/dL (75-110)
[2020-01-12] MEDS: INSULIN LISPRO 100 UNIT/ML 3 ML VIAL SUBCUT SCH ×4 (08:04→22:47)
[2020-01-12] MEDS: BUMETANIDE 1 MG TABLET PO SCH ×3 (09:30→18:15)
[2020-01-12] MEDS: ISOSORBIDE MONONITRATE 60 MG TAB.ER.24H PO SCH (09:30)
[2020-01-12] MEDS: VALSARTAN 160 MG TABLET PO SCH ×3 (09:30→18:15)
[2020-01-12] MEDS: CARVEDILOL 12.5 MG TABLET PO SCH ×3 (09:30→18:15)
[2020-01-12] MEDS: ASPIRIN 81 MG TABLET, CHEWABLE PO SCH (09:30)
[2020-01-12] MEDS: LEVETIRACETAM 500 MG/NACL-ISO 500 MG/100 ML RTUPB IV SCH ×2 (09:30→23:03)
[2020-01-12] MEDS: CEFTRIAXONE 2 GM/D5W RTU 2 GM/50 ML RTUPB IV SCH (09:30)
[2020-01-12] MEDS: CALCIUM ACETATE 667 MG CAPSULE PO SCH ×4 (09:30→18:15)
[2020-01-12] MEDS: NIFEDIPINE 30 MG TAB.ER.24 PO SCH (09:31)
[2020-01-12] MEDS: CALCITRIOL 0.25 MCG CAPSULE PO SCH (09:31)
[2020-01-12] MEDS: GLIPIZIDE XL 5 MG TAB.ER.24 PO SCH (12:52)
[2020-01-12] MEDS ORDERED: HALOPERIDOL LACTATE INJ 5 MG/1 ML VIAL IV PRN (13:10)
--- NOTE | 2020-01-12 18:14 | PDOC CONSULTATION ---
Consultation Consult Date: 01/11/20 Provider Consulted: Barrett SHEA Consult reason:: ESRD for HD. History of Present Illness Admission Date/PCP: 01/10/20 18:03 JADIEL SHARPE MD History of Present Illness: Patient is got expressive aphasia and confused and history cannot be obtained from the patient. Therefore history was obtained by chart review, discussions with treating nurse as well as from his daughter Chiquis. JOHNATHON HORVATH JR is a 59 year old male with a past h/o of ESRD on recent initiation of HD, CHF, HLD, PVD, recent Left MCA stroke, who came in the ED due to altered mental status. He was recently discharged from [facility] for CHF requiring intubation and Left MCA stroke that has left him aphasic. According to his daughter since being discharged home Johnathon has been very difficult to manage at home because of behavioral changes 2/2 to his stroke. He has refused dialysis and has not had one since discharge, he has refused to take any of his medications, has been defecating in the kitchen sink, has tried to drive a car despite being impaired. He was brought to the ED on 01/07/20 where he again refused admission and dialysis and was sent home. He was brought back again on January 08 after an apparent seizure. When he woke up in the ED he became very combative and was given ketamine. He was on social hold in the ED while mental health social worker was trying to place him on a rehab. Today, he developed about 2 episodes of hematemesis. Patients vital signs remained stable with no hemoglobin drop. Patient currently being seen while undergoing dialysis. He has been given some Haldol but still he is very restless and agitated. His daughter is only the calming influence around him. Fortunately he is not pulling or tugging at his catheter or the lines. Dialysis is being supervised with the nurse, his daughter and the sitter. Labs and medications were reviewed. Plan to remove 1- 2 L of fluid as tolerated if patient allows us to do that. Past Medical History Cardiac Medical History: Reports: CHF-Diastolic, CHF-Systolic, Hyperlipidemia, Hypertension-primary, Peripheral Vascular Disease, Pulmonary Hypertension Denies: Atrial Fibrillation, Coronary Artery Disease, DVT, Myocardial Infarction, Pulmonary Embolism Pulmonary Medical History: Reports: Pneumonia, Respiratory Failure Denies: Asthma, Bronchitis, Chronic Obstructive Pulmonary Disease (COPD), Tuberculosis Neurological Medical History: Reports: Ischemic CVA, Seizures Endocrine Medical History: Reports: Diabetes Mellitus Type 2 Denies: Diabetes Mellitus Type 1, Hyperthyroidism, Hypothyroidism Complications of Diabetes: Reports: Autonomic Neuropathy, Nephropathy Renal/ Medical History: Reports: End Stage Renal Disease, Hyperkalemia, Hyperphosphatemia, Secondary Hyperparathyroidism Denies: Benign Prostatic Hyperplasia GI Medical History: Reports: Gastroesophageal Reflux Disease Denies: Cirrhosis, Crohn's Disease, Hepatitis, Ulcerative Colitis Musculoskeltal Medical History: Reports: Arthritis Denies: Gout Skin Medical History: Denies: Eczema, Psoriasis Psychiatric Medical History: Denies: Bipolar Disorder, Depression Past Surgical History Past Surgical History: Reports: Orthopedic Surgery - 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 Social History Smoking Status: Former Smoker Frequency of Alcohol Use: Heavy Hx Recreational Drug Use: No Drugs: None Hx Prescription Drug Abuse: No - Advance Directive Resuscitation Status: Full Code Family History Parental Family History Reviewed: No - Altered mental status Children Family History Reviewed: No Sibling(s) Family History Reviewed.: No Medication/Allergy Home Medications: Aspirin [Ecotrin 81 mg EC Tablet] 81 mg PO DAILY 12/12/18 Glipizide [Glipizide Xl] 10 mg PO [id number] 06/16/19 Carvedilol 25 mg PO Q12 #60 tablet 10/23/19 Hydralazine HCl [Apresoline 25 mg Tablet] 25 mg PO Q8 #90 tablet 10/23/19 Valsartan [Diovan 160 mg Tablet] 160 mg PO Q12 #60 tablet 10/23/19 Ergocalciferol (Vitamin D2) [Drisdol 50,000 unit (1.25MG) Capsule] 50,000 unit PO ESQUIVEL 12/20/19 Isosorbide Mononitrate [Imdur 60 mg Tablet.er] 60 mg PO QAM 12/20/19 Nifedipine [Nifedipine ER] 90 mg PO QAM 12/20/19 Atorvastatin Calcium [Lipitor 40 mg Tablet] 80 mg PO QHS #60 tablet 12/31/19 Calcitriol [Rocaltrol 0.25 mcg Capsule] 0.25 mcg PO DAILY #30 capsule 12/31/19 Divalproex Sodium [Depakote ER 250 mg Tablet] 250 mg PO Q12 #60 tab.sr.24h 12/31/19 Allergies/Adverse Reactions: No Known Allergies Allergy (Verified 06/10/18 17:31) Review of Systems ROS unobtainable: Due to mental status Physical Exam Vital Signs: Temp Pulse Resp BP Pulse Ox 97.6 F 71 14 157/89 H 100 01/11/20 10:42 01/11/20 10:42 01/11/20 10:42 01/11/20 10:42 01/11/20 10:42 Intake & Output 01/10/20 01/11/20 01/12/20 06:59 06:59 06:59 Intake Total 150 150 340 Output Total 375 Balance 150 150 -35 Weight 108.8 kg 108.8 kg General appearance: PRESENT: no acute distress, disheveled Exam: Patient is quite confused and disoriented and talking gibberish. Eye exam: PRESENT: EOMI, PERRLA. ABSENT: scleral icterus Ear exam: PRESENT: normal external ear exam Mouth exam: PRESENT: neck supple Neck exam: ABSENT: meningismus, tenderness, thyromegaly, tracheal deviation Respiratory exam: PRESENT: clear to auscultation liseth, decreased breath sounds. ABSENT: crackles Cardiovascular exam: PRESENT: +S1, +S2, systolic murmur GI/Abdominal exam: PRESENT: normal bowel sounds, soft. ABSENT: organomegaly, tenderness Neurological exam: PRESENT: alert, altered, awake Focused psych exam: PRESENT: delusional Skin exam: ABSENT: cyanosis, erythema, mottled, rash Results Laboratory Results: 01/11/20 05:59 01/11/20 05:59 01/11/20 01/11/20 05:59 05:59 WBC 9.4 RBC 2.81 L Hgb 8.2 L Hct 24.5 L MCV 87 MCH 29.1 MCHC 33.3 RDW 15.4 H Plt Count 449 Seg Neutrophils % 79.6 H Sodium 135.0 L Potassium 4.6 Chloride 103 Carbon Dioxide 24 Anion Gap 8 BUN 52 H Creatinine 6.21 H Est GFR ( Amer) 11 L Glucose 47 L Calcium 8.3 L Phosphorus 6.8 H Magnesium 2.0 Total Bilirubin 0.4 AST 40 Alkaline Phosphatase 87 Total Protein 5.1 L Albumin 2.3 L Impressions: Head CT 01/09/20 15:12 IMPRESSION: 1. No significant interval change. Involving left MCA infarct as expected, no acute intracranial hemorrhage, mass, or evidence of acute territorial infarct. 2. Moderate chronic small vessel ischemic change and intracranial atherosclerosis is stable. EVIDENCE OF ACUTE STROKE: NO. Forearm X-Ray 01/10/20 00:00 IMPRESSION: Focal soft tissue prominence of the lateral distal forearm without underlying osseous abnormality. Chest X-Ray 01/10/20 08:36 IMPRESSION: Somewhat improved pulmonary examination with persistent cardiomegaly and central vascular congestion. Interval placement of a dialysis catheter. Abdomen CT 01/10/20 09:45 IMPRESSION: No acute intraabdominal findings on noncontrast Small bilateral pleural effusions with bilateral airspace, edema versus pneumonia Hand X-Ray 01/10/20 09:58 IMPRESSION: Mild, diffuse soft tissue edema without underlying osseous injury. Assessment & Plan - Diagnosis (1) End stage renal disease Plan: Patient currently undergoing dialysis which is difficult given his expressive aphasia and agitation. Fortunately his daughter Chiquis is by his bedside and is a calming influence. Also got a sitter. We will try to see if we can dialyze him because of the possibility that uremia could be adding to his confusion status. Had a lengthy discussion about future dialysis with his daughter Chiquis. Patient had expressed he wanted to go on dialysis with Dr. Epperson who is his primary presidential helicopter crew chief as per review of his notes when I came back to the office. He might benefit from atypical antipsychotics administered which will help calm him especially from an agitation point that he might be able to unde rgo safe dialysis. Expressed to the daughter that it might be in his benefit to have his mother sit by his side every time he has dialysis either in the hospital or when he is discharged to [facility] if that is option that they would like to pursue. His daughter expressed willingness to pursue that option. Will discuss with hospitalist to initiate atypical antipsychotics as Haldol would not be available as an outpatient medication. (2) Hematemesis Qualifiers: Nausea presence: without nausea Qualified Code(s): K92.0 - Hematemesis Is this a current diagnosis for this admission?: Yes Plan: Stable hemoglobin . Being managed by hospitalist. Adjust erythropoietin for anemia. (3) Noncompliance with medication regimen Plan: Secondary to recent events of expressive aphasia and stroke and agitation. (4) Seizure Is this a current diagnosis for this admission?: Yes Plan: As per hospitalist. Could be another contribution to his confusional status and agitation. (5) Delirium due to another medical condition Plan: As mentioned earlier. Monitor. See if postdialysis will make him feel better if uremia might be a component. (6) Left acute arterial ischemic stroke, MCA (middle cerebral artery) Is this a current diagnosis for this admission?: Yes Plan: Along with expressive aphasia. Status quo.
--- NOTE | 2020-01-12 21:27 | PDOC PROGRESS REPORT ---
Subjective Date:: 01/12/20 Subjective:: JOHNATHON HORVATH JR is a 59 year old male, PMH of ESRD on HD, CHF, HLD, PVD, recent Left MCA stroke, who came in the ED due to altered mental status. He was recently discharged from [facility] for Pulm edema requiring intubation and Left MCA stroke that has left him aphasic. According to his daughter since being discharged home Johnathon has been very difficult to manage at home because of behavioral changes 2/2 to his stroke. He has refused dialysis and has not had one since discharge, he has refused to take any of his medications, has been defecating in the kitchen sink, has tried to drive a car despite being impaired. He was brought to the ED on 01/07/20 where he again refused admission and dialysis and was sent home. He was brought back again on January 08 after an apparent seizure. When he woke up in the ED he became very combative and was given ketamine. He was on social hold in the ED while social service agency director was trying to place him on a rehab. Today, he developed about 2 episodes of hematemesis. Patients vital signs remained stable with no hemoglobin drop. Hospitalist service was asked to admit him. I had a family meeting with the patients , patients daughter terrie Goode from [facility] regarding his current status. Rupa acted as the interpre ter for sign language. I discussed with them that the patient has refused dialysis and it is very unlikely that he would agree to this with how he is neurologically. I told them that in order to even administer any oral medications to him let alone dialyze him would necessitate chemically sedating h im and also physical restraints. His quality of life will be severely affected and that what we are aiming for is to avoid medical procedures that will just only harm him without having any actual benefit. They are understandably struggling to come up with a decision. Hospice was also discussed with them but they have not made a decision about this as well. D2 hospital stay. 01/11/20 He was seen and examined at bedside today. He was working with physical therapy using a walker. He agreed to get dialysis today. He still has expressive aphasia. No family was present today. Will call them tomorrow. I doubt if he can be discharged home as he can be very difficult to manage at home as what we already saw. The nurse also informed me today that they found pills under his pillow which is probably the pills he was given last night. He most likely pretended to swallow it but did not and hit it under his pillow. D3 hospital stay. 01/12/20. He was seen and examined at bedside. No further epi sode of hematemesis or seizure. Has episodes of agitation, would insist on walking outside his room despite being unsteady on his feet. He was given haldol for this. I again reached out to his daughter Rupa. She was asking if her dad can go to palliative but not hospice. She was under the impression that palliative is a place he can go to. I explained to her that palliative is a consulting service that provides support to patients with life limiting illness. I have asked her to come for a family meeting tomorrow with discharge planning so they can assist with their decision regarding the patients care. Reason For Visit: END STAGE RENAL DISEASE,DIALYSIS Physical Exam Vital Signs: Temp Pulse Resp BP Pulse Ox 98.0 F 79 17 139/58 H 100 01/12/20 19:13 01/12/20 19:13 01/12/20 19:13 01/12/20 19:13 01/12/20 19:13 Intake & Output 01/11/20 01/12/20 01/13/20 06:59 06:59 06:59 Intake Total 150 710 150 Output Total 2975 1070 Balance 150 -2265 -920 Weight 108.8 kg 108.8 kg General appearance: PRESENT: no acute distress, other - agitated Head exam: PRESENT: atraumatic, normocephalic Eye exam: PRESENT: EOMI, PERRLA Mouth exam: PRESENT: moist Neck exam: PRESENT: full ROM Respiratory exam: PRESENT: clear to auscultation liseth, symmetrical, unlabored Cardiovascular exam: PRESENT: RRR, +S1, +S2 Pulses: PRESENT: +2 pedal pulses bilateral GI/Abdominal exam: PRESENT: normal bowel sounds, soft. ABSENT: rebound, tenderness Extremities exam: PRESENT: full ROM Musculoskeletal exam: PRESENT: full ROM Neurological exam: PRESENT: alert, awake, oriented to person, oriented to place, oriented to time, oriented to situation Psychiatric exam: PRESENT: normal mood Skin exam: PRESENT: normal color Results Laboratory Results: 01/12/20 05:44 01/12/20 05:44 01/12/20 01/12/20 05:44 05:44 WBC 7.4 RBC 3.26 L Hgb 9.4 L Hct 28.1 L MCV 86 MCH 28.9 MCHC 33.6 RDW 15.0 H Plt Count 410 Seg Neutrophils % 72.0 Sodium 135.5 L Potassium 4.3 Chloride 102 Carbon Dioxide 25 Anion Gap 9 BUN 33 H Creatinine 4.52 H Est GFR ( Amer) 16 L Glucose 52 L Calcium 8.5 Phosphorus 5.3 H Magnesium 2.0 Total Bilirubin 0.3 AST 44 Alkaline Phosphatase 88 Total Protein 5.7 L Albumin 2.5 L 01/09/20 17:40 Catheterized Urine Urine Culture - Final Pseudomonas Aeruginosa Impressions: Head CT 01/09/20 15:12 IMPRESSION: 1. No significant interval change. Involving left MCA infarct as expected, no a cute intracranial hemorrhage, mass, or evidence of acute territorial infarct. 2. Moderate chronic small vessel ischemic change and intracranial atherosclerosis is stable. EVIDENCE OF ACUTE STROKE: NO. Forearm X-Ray 01/10/20 00:00 IMPRESSION: Focal soft tissue prominence of the lateral distal forearm without underlying osseous abnormality. Chest X-Ray 01/10/20 08:36 IMPRESSION: Somewhat improved pulmonary examination with persistent ca rdiomegaly and central vascular congestion. Interval placement of a dialysis catheter. Abdomen CT 01/10/20 09:45 IMPRESSION: No acute intraabdominal findings on noncontrast Small bilateral pleural effusions with bilateral airspace, edema versus pneumonia Hand X-Ray 01/10/20 09:58 IMPRESSION: Mild, diffuse soft tissue edema without underlying osseous injury. Assessment and Plan - Diagnosis (1) Acute metabolic encephalopathy Is this a current diagnosis for this admission?: Yes Plan: - has been refusing medications including dialysis since discharge from hospital 12/20/19 - came in with 1 episode of seizures - this is likely because of neurologic changes from recent stroke on top of missed dialysis - please refer to ACP note regarding discussions with his family - haldol PRN for agitation - Ativan PRN for seizures - per speech therapist speech is largely dysfluent with few true words produced. Patient was unable to name pictures, was unable to complete automatic speech sequences, and was unable to imitate words or phonemes. Patient does have some preserved social language with greetings, etc. (2) Seizure Is this a current diagnosis for this admission?: Yes Plan: - had a seizure at home EMS called - he has not had dialysis since discharge so I suspect this is 2/2 to uremia - started keppra IV but ultimately what he needs is regular dialysis - EEG not ordered as I doubt he would stay still for this - consider stopping keppra if he remains seizure free - PRN ativan for seizure (3) ESRD (end stage renal disease) on dialysis Is this a current diagnosis for this admission?: Yes Plan: - had dialysis in patient 01/11/20 - has a permacath - Crea 5.9>4.52 - K 5.1>4.3 - he needs regular scheduled dialysis but he has been known to refuse and with his mental status as it is having him come for a scheduled dialysis will be very challenging. - Nephro consulted. (4) Left acute arterial ischemic stroke, MCA (middle cerebral artery) Is this a current diagnosis for this admission?: Yes Plan: - recent Left MCA infarct Nov 2019 - minimal motor deficit but he has suffered significant expressive aphasia as well as behavioral changes - continue lipitor, carvedilol, - holding aspirin due to hematemesis. 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 - haldol pRN - psych consulted - Time Time Spent with patient: 25-34 minutes Medications reviewed and adjusted accordingly: Yes Anticipated Discharge Disposition: tbd Anticipated Discharge Timeframe: tbd
[2020-01-12] MEDS: ATORVASTATIN CALCIUM 40 MG TABLET PO SCH (22:36)
[2020-01-12] MEDS: HALOPERIDOL LACTATE INJ 5 MG/1 ML VIAL IV PRN (22:39)
[2020-01-13] MEDS: LORAZEPAM INJ 2 MG/1 ML VIAL IV PRN ×2 (00:26→05:19)
[2020-01-13] MEDS: HALOPERIDOL LACTATE INJ 5 MG/1 ML VIAL IV PRN (02:42)
[2020-01-13] MEDS ORDERED: HEPARIN SOD (PORCINE) 1,000 UNIT/ML 10 ML VIAL IV PRN (05:00)
[2020-01-13] MEDS: HEPARIN SOD (PORCINE) 5,000 UNIT/ML 1 ML VIAL SUBCUT SCH ×3 (05:21→22:31)
[2020-01-13] MEDS: HYDRALAZINE HCL 25 MG TABLET PO SCH ×3 (05:24→22:15)
[2020-01-13 07:03] LABS: ABSOLUTE EOSINOPHILS # (AUTO) 0.2 10^3/uL (0.0-0.6); ABSOLUTE LYMPHOCYTES (AUTO) 1.7 10^3/uL (0.5-4.7); ABSOLUTE MONOCYTES (AUTO) 0.7 10^3/uL (0.1-1.4); ABSOLUTE NEUT (AUTO) 3.6 10^3/uL (1.7-8.2); BASOPHILS % (AUTO) 0.4 % (0-2); EOSINOPHILS % (AUTO) 2.9 % (0-6); HEMATOCRIT 26.1 % (37.9-51.0); HEMOGLOBIN 8.5 g/dL (13.5-17.0); LYMPHOCYTES % (AUTO) 27.3 % (13-45); MEAN CORPUSCULAR HEMOGLOBIN 28.5 pg (27.0-33.4); MEAN CORPUSCULAR HGB CONC 32.7 g/dL (32.0-36.0); MEAN CORPUSCULAR VOLUME 87 fl (80-97); MONOCYTES % (AUTO) 10.9 % (3-13); PLATELET COUNT 387 10^3/uL (150-450); RED CELL DISTRIBUTION WIDTH 15.1 % (11.5-14.0); SEGMENTED NEUTROPHILS % (AUTO) 58.5 % (42-78); TOTAL CELLS COUNTED % (AUTO) 100 %; WHITE BLOOD COUNT 6.2 10^3/uL (4.0-10.5)
[2020-01-13 07:16] LABS: ALBUMIN 2.4 g/dL (3.5-5.0); ALKALINE PHOSPHATASE 79 U/L (38-126); ANION GAP 10 (5-19); ASPARTATE AMINO TRANSFERASE 33 U/L (17-59); BILIRUBIN,DIRECT 0.1 mg/dL (0.0-0.4); BILIRUBIN,TOTAL 0.1 mg/dL (0.2-1.3); BLOOD UREA NITROGEN 34 mg/dL (7-20); CALCIUM 8.3 mg/dL (8.4-10.2); CARBON DIOXIDE 25 mmol/L (22-30); CHLORIDE 102 mmol/L (98-107); GLUCOSE 79 mg/dL (75-110); PHOSPHORUS 5.3 mg/dL (2.5-4.5); POTASSIUM 4.2 mmol/L (3.6-5.0); TOTAL PROTEIN 5.3 g/dL (6.3-8.2)
[2020-01-13] MEDS: INSULIN LISPRO 100 UNIT/ML 3 ML VIAL SUBCUT SCH ×2 (08:58→11:23)
[2020-01-13] MEDS: VALSARTAN 160 MG TABLET PO SCH ×2 (10:20→22:17)
[2020-01-13] MEDS: BUMETANIDE 1 MG TABLET PO SCH ×2 (10:21→17:56)
[2020-01-13] MEDS: NIFEDIPINE 30 MG TAB.ER.24 PO SCH (10:21)
[2020-01-13] MEDS: CALCIUM ACETATE 667 MG CAPSULE PO SCH ×3 (10:21→17:56)
[2020-01-13] MEDS: CARVEDILOL 12.5 MG TABLET PO SCH ×2 (10:22→22:30)
[2020-01-13] MEDS: ASPIRIN 81 MG TABLET, CHEWABLE PO SCH (10:22)
[2020-01-13] MEDS: LEVETIRACETAM 500 MG/NACL-ISO 500 MG/100 ML RTUPB IV SCH (10:22)
[2020-01-13] MEDS: ISOSORBIDE MONONITRATE 60 MG TAB.ER.24H PO SCH (10:22)
[2020-01-13] MEDS: CALCITRIOL 0.25 MCG CAPSULE PO SCH (10:22)
[2020-01-13] MEDS: GLIPIZIDE XL 5 MG TAB.ER.24 PO SCH (11:05)
[2020-01-13] MEDS ORDERED: PHARMACY COMMUNICATION ORDER MC NR (11:45)
--- NOTE | 2020-01-13 11:45 | ADVANCED CARE ---
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 Garay and family would like to proceed with this plan. The risks and benefits of antipsychotic therapy were discussed at length, including the risk of cardiac arrhythmias, over-sedation, and overall increased risk of in geriatric patients. We discussed Code Status and goals of care if patient should continue to medically decline. Rupa states that half of the family is interested in changing code status to DNR but some others are resistant because their goal is to "prolong life as long as possible" without regard to quality of life. She would like to continue this conversation with her mom and siblings before making any changes to code status. I think Mr. Garay would benefit from the addition of SSRI therapy once we have initiated an antipsychotic and he is reliably taking his medications. Time Spent: >60 minutes
[2020-01-13] MEDS ORDERED: OLANZAPINE 5 MG TAB.RAPDIS PO ONE (13:00)
[2020-01-13] MEDS: EPOETIN ALFA-EPBX 20,000 UNIT in SYRINGE, DISPOSABLE, 1 EACH IV PRN (13:37)
--- NOTE | 2020-01-13 14:46 | PDOC PROGRESS REPORT ---
Subjective Date:: 01/13/20 Reason For Visit: Patient seen today on dialysis. He is very calm today and sleeping and arou sable without any agitations or confusion at the moment. He is still got expressive aphasia. Vital signs are stable. Labs and medications were reviewed. Note changes have been done with initiation of atypical antipsychotics. Note advance care planning has been done by hospitalist along with family members. Dialysis orders were reviewed with the treating dialysis nurse. Physical Exam Vital Signs: Temp Pulse Resp BP Pulse Ox 98.0 F 72 16 165/79 H 97 01/13/20 11:09 01/13/20 11:09 01/13/20 11:09 01/13/20 11:09 01/13/20 11:09 Intake & Output 01/12/20 01/13/20 01/14/20 06:59 06:59 06:59 Intake Total 710 630 340 Output Total 2975 1070 2600 Balance -2265 -440 -2260 Weight 108.8 kg 108.8 kg General appearance: PRESENT: no acute distress Respiratory exam: PRESENT: clear to auscultation liseth, decreased breath sounds. ABSENT: crackles Cardiovascular exam: PRESENT: +S1, +S2, systolic murmur GI/Abdominal exam: PRESENT: normal bowel sounds, soft. ABSENT: organomegaly, tenderness Neurological exam: PRESENT: alert, awake Results Laboratory Results: 01/13/20 05:57 01/13/20 05:57 01/13/20 01/13/20 05:57 05:57 WBC 6.2 RBC 3.00 L Hgb 8.5 L Hct 26.1 L MCV 87 MCH 28.5 MCHC 32.7 RDW 15.1 H Plt Count 387 Seg Neutrophils % 58.5 Sodium 136.8 L Potassium 4.2 Chloride 102 Carbon Dioxide 25 Anion Gap 10 BUN 34 H Creatinine 4.96 H Est GFR ( Amer) 14 L Glucose 79 Calcium 8.3 L Phosphorus 5.3 H Magnesium 1.9 Total Bilirubin 0.1 L AST 33 Alkaline Phosphatase 79 Total Protein 5.3 L Albumin 2.4 L Impressions: Head CT 01/09/20 15:12 IMPRESSION: 1. No significant interval change. Involving left MCA infarct as expected, no acute intracranial hemorrhage, mass, or evidence of acute territorial infarct. 2. Moderate chronic small vessel ischemic change and intracranial atherosclerosis is stable. EVIDENCE OF ACUTE STROKE: NO. Forearm X-Ray 01/10/20 00:00 IMPRESSION: Focal soft tissue prominence of the lateral distal forearm without underlying osseous abnormality. Chest X-Ray 01/10/20 08:36 IMPRESSION: Somewhat improved pulmonary examination with persistent cardiomegaly and central vascular congestion. Interval placement of a dialysis catheter. Abdomen CT 01/10/20 09:45 IMPRESSION: No acute intraabdominal findings on noncontrast Small bilateral pleural effusions with bilateral airspace, edema versus pneumonia Hand X-Ray 01/10/20 09:58 IMPRESSION: Mild, diffuse soft tissue edema without underlying osseous injury. Assessment & Plan - Diagnosis (1) End stage renal disease Plan: Patient currently undergoing dialysis . He is calm and sleeping but arousable with no agitation like he was when I saw him on last Saturday. Vital signs are stable. Dialysis is being supervised and going very well. Labs and medications reviewed. Dialysis orders reviewed with treating dialysis nurse. Plan to ultrafiltrate 1-1.5 L as tolerated. (2) Hematemesis Qualifiers: Nausea presence: without nausea Qualified Code(s): K92.0 - Hematemesis Is this a current diagnosis for this admission?: Yes Plan: Stable hemoglobin . Being managed by hospitalist. Adjust erythropoietin for anemia. (3) Noncompliance with medication regimen Plan: Secondary to recent events of expressive aphasia and stroke and agitation.Hopefully him being on SSRIs/ antipsychotics will help him be better and with compliance as well. (4) Seizure Is this a current diagnosis for this admission?: Yes Plan: As per hospitalist. (5) Delirium due to another medical condition Plan: Currently resolved. (6) Left acute arterial ischemic stroke, MCA (middle cerebral artery) Is this a current diagnosis for this admission?: Yes Plan: Along with expressive aphasia. Status quo. (7) Anemia in chronic kidney disease (CKD) Plan: Adjust erythropoietin. Monitor.
--- NOTE | 2020-01-13 17:05 | PDOC PROGRESS REPORT ---
Subjective Date:: 01/13/20 Subjective:: NAEO. He has been much more pleasant, calm and engaged today. Reason For Visit: END STAGE RENAL DISEASE,DIALYSIS Physical Exam Vital Signs: Temp Pulse Resp BP Pulse Ox 97.6 F 71 16 162/98 H 99 01/13/20 15:09 01/13/20 15:09 01/13/20 15:09 01/13/20 15:09 01/13/20 15:09 Intake & Output 01/12/20 01/13/20 01/14/20 06:59 06:59 06:59 Intake Total 791 230 4468 Output Total 2975 1070 2900 Balance -2265 -440 -1510 Weight 108.8 kg 108.8 kg General appearance: PRESENT: no acute distress, cooperative Eye exam: ABSENT: scleral icterus Mouth exam: PRESENT: moist Throat exam: ABSENT: post pharyngeal erythema Neck exam: ABSENT: JVD Respiratory exam: PRESENT: clear to auscultation liseth, unlabored Cardiovascular exam: PRESENT: RRR GI/Abdominal exam: PRESENT: normal bowel sounds, soft. ABSENT: tenderness Extremities exam: PRESENT: other - LLE chronic venous stasis changes + swelling + 3 toe amputations Musculoskeletal exam: PRESENT: ambulatory Neurological exam: PRESENT: alert, awake Psychiatric exam: PRESENT: appropriate affect Skin exam: ABSENT: jaundice Results Laboratory Results: 01/13/20 05:57 01/13/20 05:57 01/13/20 01/13/20 05:57 05:57 WBC 6.2 RBC 3.00 L Hgb 8.5 L Hct 26.1 L MCV 87 MCH 28.5 MCHC 32.7 RDW 15.1 H Plt Count 387 Seg Neutrophils % 58.5 Sodium 136.8 L Potassium 4.2 Chloride 102 Carbon Dioxide 25 Anion Gap 10 BUN 34 H Creatinine 4.96 H Est GFR ( Amer) 14 L Glucose 79 Calcium 8.3 L Phosphorus 5.3 H Magnesium 1.9 Total Bilirubin 0.1 L AST 33 Alkaline Phosphatase 79 Total Protein 5.3 L Albumin 2.4 L Impressions: Head CT 01/09/20 15:12 IMPRESSION: 1. No significant interval change. Involving left MCA infarct as expected, no acute intracranial hemorrhage, mass, or evidence of acute territorial infarct. 2. Moderate chronic small vessel ischemic change and intracranial atherosclerosi s is stable. EVIDENCE OF ACUTE STROKE: NO. Forearm X-Ray 01/10/20 00:00 IMPRESSION: Focal soft tissue prominence of the lateral distal forearm without underlying osseous abnormality. Chest X-Ray 01/10/20 08:36 IMPRESSION: Somewhat improved pulmonary examination with persistent cardiomegaly and central vascular congestion. Interval placement of a dialysis catheter. Abdomen CT 01/10/20 09:45 IMPRESSION: No acute intraabdominal findings on noncontrast Small bilateral pleural effusions with bilateral airspace, edema versus pneumonia Hand X-Ray 01/10/20 09:58 IMPRESSION: Mild, diffuse soft tissue edema without underlying osseous injury. 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 Is this a current diagnosis for this admission?: Yes (3) ESRD (end stage renal disease) on dialysis Is this a current diagnosis for this admission?: Yes (4) Essential hypertension Is this a current diagnosis for this admission?: Yes (5) Expressive aphasia Is this a current diagnosis for this admission?: Yes (6) Pseudomonas urinary tract infection Is this a current diagnosis for this admission?: Yes (7) Hematemesis Qualifiers: Nausea presence: without nausea Qualified Code(s): K92.0 - Hematemesis Is this a current diagnosis for this admission?: Yes (8) Seizure Is this a current diagnosis for this admission?: Yes (9) Urinary tract infection Qualifiers: Urinary tract infection type: acute cystitis Hematuria presence: without hematuria Qualified Code(s): N30.00 - Acute cystitis without hematuria Is this a current diagnosis for this admission?: Yes (10) Left acute arterial ischemic stroke, MCA (middle cerebral artery) Is this a current diagnosis for this admission?: Yes (11) Physical deconditioning Is this a current diagnosis for this admission?: Yes - Plan Summary Summary: JARED HORVATH JR is a 59 year old man with PMH of ESRD on HD, CHF, HTN, HLD, PAD and recent left MCA stroke complicated by receptive/expressive aphasia and impulse/safety awareness who presented on 01/09/2020 due to seizure-like activity. He was recently discharged from [facility] after a pro longed hospitalization from 12/19-12/31/2019 due to ADHF and acute left MCA stroke. He was discharged home with home health services. Since being discharged home , Mr. Horvath has been very difficult to manage due to the behavioral changes associated with his stroke. He has repeatedly refused dialysis, has refused to take any of his medications, has been defecating in the kitchen sink, has tried to drive a car despite being impaired, etc. He was brought to the ED on 01/07/20 but refused admission/HD and was sent home. He was brought back again on 01/08 after an apparent seizure. When he woke up in the ED, he became very combative and was given ketamine. He was initially kept in the ED as a so cial hold while social worker assistant was trying to place him in a SNF, per family's request. On 01/10/2020, he developed hematemesis with stable vital signs and H/H. Hospitalist service was subsequently asked to admit for further work up and management. Acute metabolic encephalopathy: he was with family at [facility] when he suddenly dropped to the ground and had seizure-like activity. By the time EMS arrived, he was reportedly post-ictal. Upon becoming more alert, he became extremely combative. and IM ketamine was administered by EMS prior to arrival to the ED. Unclear if he truly had a seizure or if he had seizure-like activity in the s/o vasovagal syncope. He has no seizure disorder and no further evidence of seizure activity this hospitalization. CT head on arrival did not show any acute changes besides previously known L MCA stroke. - DC Keppra as this medication is known to cause behavioral problems, including aggression/agitation - monitor closely off all AED Acute L MCA Ischemic Stroke (11/2019): he has suffered significant expressive aphasia as well as behavioral changes due to this stroke. Family is requesting chemical sedation in order to control his behavioral issues so that he can get the medications, HD and other medical interventions that could potentially prolong his life. Multiple family meetings have been held to discuss options and the risks and benefits of these options. - start Zyprexa 5 mg AM and 10 mg PM ODT - DC Haldol/Ativan - he will eventually benefit from the addition of SSRI therapy when he is more reliably taking his medications - continue ASA and high intensity statin therapy - will need placement for ongoing PT, OT, [employer] Pseudomonas UTI - meropenem x7 days (D1: 01/13/2020) ESRD on HD (MWF) via Permacath - Nephrology consulted - Epo with HD Anemia of CKD - H/H stable without signs or symptoms of acute blood loss Essential Hypertension: uncontrolled due to medication nonadherence. Hopeful that antipsychotic therapy will help patient adhere to medications more regularly. Also, will switch medications to short-acting formulations that are easier to crush. Hematemesis: unclear exactly what this episode was related to, or if patient truly ever experienced hematemesis or just regurgitated red-appearing food. He has had no further episodes of GI bleeding and H/H remains stable. DVT ppx: heparin - Time Time Spent with patient: 35 or more minutes Anticipated Discharge Disposition: [facility] Facility Anticipated Discharge Timeframe: within 48 hours
--- NOTE | 2020-01-13 17:58 | PDOC CONSULTATION ---
Consultation-Blank Consultation: Reason for Consult: Behavioral Attempted to make contact with patient; he was at dialysis. Will try again at a later time. Patient was seen when in the emergency department. He is less than 30 days post major stroke. Patient's family has been provided TBI survival book for reference to understand cognitive, behavioral and mood changes they can expect/understand. Medication recommendations per [facility]'s contracted psychiatrist are as follows: Please discontinue Zyprexa Please add Rispirdone 0.25mg twice daily as needed Please add Clonidine transdermal patch 0.1mg patient is on Keppra for seizures, this will also assistant case manager with his mood stabilization Attending physicians are asked to consider to AVOID prescribing benzodiazepines (e.g. Ativan, Xanax, Valium, Klonopin), antipsychotics (e.g. Haldol, Geodon, Zyprexa, Seroquel), some sleep aids (e.g. Ambien, Lunesta, Sonata), narcotic pain medications, and high dose steroids (prednisone) as these have been known to cause and/or increase symptoms of aggression, psychosis and/or paranoia in patients with neurodengenerative processes, such as dementia, Alzheimers Disease, Traumatic Brain Injury, etc. Dr. Oropeza was consulted on the care and management of this patient; spoke with attending provider, they are in agreement with recommendations and disposition.
[2020-01-13] MEDS ORDERED: MEROPENEM 1 GM in NORMAL SALINE 50 ML IV SCH (18:00)
[2020-01-13] MEDS ORDERED: OLANZAPINE 5 MG TABLET PO ONE (20:30)
[2020-01-13] MEDS ORDERED: OLANZAPINE 5 MG TAB.RAPDIS PO SCH ×2 (22:00)
[2020-01-13] MEDS: ATORVASTATIN CALCIUM 40 MG TABLET PO SCH (22:14)
[2020-01-13] MEDS: ISOSORBIDE DINITRATE 20 MG TABLET PO SCH (22:16)
[2020-01-13] MEDS: NIFEDIPINE 10 MG CAPSULE PO SCH (22:30)
[2020-01-14] MEDS: RISPERIDONE 0.25 MG TABLET PO SCH ×3 (03:52→22:11)
[2020-01-14] MEDS: HYDRALAZINE HCL 25 MG TABLET PO SCH ×4 (05:18→22:36)
[2020-01-14] MEDS: NIFEDIPINE 10 MG CAPSULE PO SCH ×2 (05:18→05:41)
[2020-01-14] MEDS: ISOSORBIDE DINITRATE 20 MG TABLET PO SCH ×3 (05:19→22:11)
[2020-01-14] MEDS: HEPARIN SOD (PORCINE) 5,000 UNIT/ML 1 ML VIAL SUBCUT SCH ×3 (05:20→22:16)
[2020-01-14] MEDS ORDERED: OLANZAPINE 5 MG TAB.RAPDIS PO SCH (06:00)
[2020-01-14] MEDS: CALCIUM ACETATE 667 MG CAPSULE PO SCH ×3 (10:21→17:41)
[2020-01-14] MEDS: CARVEDILOL 12.5 MG TABLET PO SCH ×2 (10:21→22:11)
[2020-01-14] MEDS: CALCITRIOL 0.25 MCG CAPSULE PO SCH (10:21)
[2020-01-14] MEDS: BUMETANIDE 1 MG TABLET PO SCH ×2 (10:21→17:40)
[2020-01-14] MEDS: ASPIRIN 81 MG TABLET, CHEWABLE PO SCH (10:21)
[2020-01-14] MEDS: VALSARTAN 160 MG TABLET PO SCH ×2 (10:21→22:11)
[2020-01-14] MEDS: INSULIN LISPRO 100 UNIT/ML 3 ML VIAL SUBCUT SCH (12:24)
[2020-01-14] MEDS: CLONIDINE 0.1 MG/24 HR PATCH.TDWK TD SCH (13:23)
[2020-01-14] MEDS ORDERED: DIVALPROEX SODIUM 125 MG CAP.SPRINK PO SCH (14:00)
[2020-01-14] MEDS: VALPROATE SODIUM SYRUP 250 MG/5 ML UDCUP PO SCH ×2 (17:41→22:11)
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
[2020-01-14] MEDS: MEROPENEM 500 MG in NORMAL SALINE 50 ML IV SCH (19:15)
[2020-01-14] MEDS: ATORVASTATIN CALCIUM 40 MG TABLET PO SCH ×2 (22:11→22:36)
[2020-01-14] MEDS ORDERED: HALOPERIDOL LACTATE INJ 5 MG/1 ML VIAL ONE (23:30)
[2020-01-14] MEDS ORDERED: HALOPERIDOL LACTATE INJ 5 MG/1 ML VIAL IV ONE (23:45)
[2020-01-15] MEDS ORDERED: HEPARIN SOD (PORCINE) 1,000 UNIT/ML 10 ML VIAL IV PRN (05:00)
[2020-01-15] MEDS: HEPARIN SOD (PORCINE) 5,000 UNIT/ML 1 ML VIAL SUBCUT SCH ×3 (06:22→22:03)
[2020-01-15] MEDS: HYDRALAZINE HCL 25 MG TABLET PO SCH ×2 (06:31→16:38)
[2020-01-15] MEDS: ISOSORBIDE DINITRATE 20 MG TABLET PO SCH ×3 (06:31→22:02)
[2020-01-15 06:56] LABS: HEMATOCRIT 27.4 % (37.9-51.0); MEAN CORPUSCULAR HEMOGLOBIN 28.7 pg (27.0-33.4); MEAN CORPUSCULAR HGB CONC 32.8 g/dL (32.0-36.0); MEAN CORPUSCULAR VOLUME 88 fl (80-97); PLATELET COUNT 393 10^3/uL (150-450); RED BLOOD COUNT 3.13 10^6/uL (4.35-5.55); RED CELL DISTRIBUTION WIDTH 15.2 % (11.5-14.0); WHITE BLOOD COUNT 5.4 10^3/uL (4.0-10.5)
[2020-01-15 07:29] LABS: ANION GAP 12 (5-19); BLOOD UREA NITROGEN 26 mg/dL (7-20); CALCIUM 9.2 mg/dL (8.4-10.2); CARBON DIOXIDE 24 mmol/L (22-30); CHLORIDE 102 mmol/L (98-107); GLUCOSE 121 mg/dL (75-110); POTASSIUM 4.8 mmol/L (3.6-5.0)
[2020-01-15] MEDS: CALCIUM ACETATE 667 MG CAPSULE PO SCH ×3 (11:21→16:39)
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
--- NOTE | 2020-01-15 13:12 | RADIOLOGY REPORT (SQ) ---
EXAM DESCRIPTION: VENOUS UNILATERAL LOWER IMAGES COMPLETED DATE/TIME: 01/15/2020 12:54 pm REASON FOR STUDY: rule out DVT, left leg pain COMPARISON: None. TECHNIQUE: Dynamic and static patterson scale and color images acquired of the left leg venous system. Se lected spectral images acquired with additional compression and augmentation maneuvers. The contralat eral common femoral vein and saphenofemoral junction were also imaged. Images stored on PACS. LIMITATIONS: None. FINDINGS: COMMON FEMORAL: Normal phasicity, compression and augmentation. No visualized echogenic ma terial on patterson scale. No defects on color images. FEMORAL: Normal compression and augmentation. No visualized echogenic material on patterson scale. No defe cts on color images. POPLITEAL: Normal compression, augmentation. No visualized echogenic material on patterson scale. No defec ts on color images. CALF VESSELS: Normal compression, augmentation. No visualized echogenic material on patterson scale. No de fects on color images. GSV and SSV: Normal compression, augmentation. No visualized echogenic material on patterson scale. No def ects on color images. ANY DEEP VENOUS INSUFFICIENCY: Not evaluated. ANY EVIDENCE OF POPLITEAL CYST: No. OTHER: No other significant finding. IMPRESSION: NO EVIDENCE DVT OR SVT IN THE LEFT LEG. TECHNICAL DOCUMENTATION: JOB ID: [id number] 2010 [employer]- All Rights Reserved Reading location - IP/workstation name: [email or web address]
--- NOTE | 2020-01-15 14:11 | PDOC PROGRESS REPORT ---
Subjective Date:: 01/15/20 Reason For Visit: Patient was seen today on dialysis. He is undergoing dialysis without any i ssues. However the patient is extremely sleepy and difficult to arouse. Discussions were done with the sitter as well as the treating nurse. Had seen the patient earlier on the floor and I was told that patient had been very aggressive and agitated yesterday and had to be given Haldol. Patient's medications were reviewed and includes atypical antipsychotics. Labs and medications were reviewed. Dialysis orders were reviewed with the treating dialysis nurse. Physical Exam Vital Signs: Temp Pulse Resp BP Pulse Ox 98.2 F 72 17 132/60 H 99 01/15/20 08:30 01/15/20 07:48 01/15/20 07:48 01/15/20 07:48 01/15/20 07:48 Intake & Output 01/14/20 01/15/20 01/16/20 06:59 06:59 06:59 Intake Total 2392 1250 Output Total 2900 Balance -508 1250 Weight 108.8 kg 108.2 kg Eye exam: PRESENT: EOMI, PERRLA. ABSENT: scleral icterus Respiratory exam: PRESENT: clear to auscultation liseth, decreased breath sounds. ABSENT: crackles Cardiovascular exam: PRESENT: +S1, +S2, systolic murmur GI/Abdominal exam: PRESENT: normal bowel sounds, soft. ABSENT: organomegaly, tenderness Results Laboratory Results: 01/15/20 06:35 01/15/20 06:35 01/15/20 01/15/20 06:35 06:35 WBC 5.4 RBC 3.13 L Hgb 9.0 L Hct 27.4 L MCV 88 MCH 28.7 MCHC 32.8 RDW 15.2 H Plt Count 393 Sodium 137.5 Potassium 4.8 Chloride 102 Carbon Dioxide 24 Anion Gap 12 BUN 26 H Creatinine 4.41 H Est GFR ( Amer) 17 L Glucose 121 H Calcium 9.2 Impressions: Head CT 01/09/20 15:12 IMPRESSION: 1. No significant interval change. Involving left MCA infarct as expected, no acute intracranial hemorrhage, mass, or evidence of acute territorial infarct. 2. Moderate chronic small vessel ischemic change and intracranial atherosclerosis is stable. EVIDENCE OF ACUTE STROKE: NO. Forearm X-Ray 01/10/20 00:00 IMPRESSION: Focal soft tissue prominence of the lateral distal forearm without underlying osseous abnormality. Chest X-Ray 01/10/20 08:36 IMPRESSION: Somewhat improved pulmonary examination with persistent cardiomegaly and central vascular congestion. Interval placement of a dialysis catheter. Abdomen CT 01/10/20 09:45 IMPRESSION: No acute intraabdominal findings on noncontrast Small bilateral pleural effusions with bilateral airspace, edema versus pneumo paloma Hand X-Ray 01/10/20 09:58 IMPRESSION: Mild, diffuse soft tissue edema without underlying osseous injury. Venous Doppler Study 01/15/20 00:00 IMPRESSION: NO EVIDENCE DVT OR SVT IN THE LEFT LEG. Assessment & Plan - Diagnosis (1) End stage renal disease Plan: Patient currently undergoing dialysis . Currently he is extremely sedated/Haldol effect and is very difficult to arouse. He moans when shaken. Vital signs are stable. Dialysis is being supervised and going very well. Labs and medications reviewed. Dialysis orders reviewed with treating dialysis nurse. Plan to ultrafiltrate 1-1.5 L as tolerated. (2) Hematemesis Qualifiers: Nausea presence: without nausea Qualified Code(s): K92.0 - Hematemesis Is this a current diagnosis for this admission?: Yes Plan: Stable hemoglobin . Being managed by hospitalist. Adjust erythropoietin for anemia. (3) Noncompliance with medication regimen Plan: Secondary to recent events of expressive aphasia and stroke and agitation.Hope fully him being on SSRIs/ antipsychotics will help him be better and with compliance as well. (4) Seizure Is this a current diagnosis for this admission?: Yes Plan: As per hospitalist. (5) Delirium due to another medical condition Plan: Unfortunately ongoing that he had to be sedated/given Haldol. Currently under heavy sedation. Down titrate/adjust antipsychotics and see if psychiatric help could be available.Unfortunately it will be very difficult for this patient to undergo outpatient dialysis if he is not in a stable mental situation where he can sit still for approximately 4 hours. (6) Left acute arterial ischemic stroke, MCA (middle cerebral artery) Is this a current diagnosis for this admission?: Yes Plan: Along with expressive aphasia. Status quo. (7) Anemia in chronic kidney disease (CKD) Plan: Adjust erythropoietin. Monitor.
[2020-01-15] MEDS: EPOETIN ALFA-EPBX 20,000 UNIT in SYRINGE, DISPOSABLE, 1 EACH IV PRN (15:00)
[2020-01-15] MEDS: BUMETANIDE 1 MG TABLET PO SCH ×2 (16:34→17:40)
[2020-01-15] MEDS: ASPIRIN 81 MG TABLET, CHEWABLE PO SCH (16:34)
[2020-01-15] MEDS: OLANZAPINE 5 MG TAB.RAPDIS PO SCH ×2 (16:34→22:01)
[2020-01-15] MEDS: CARVEDILOL 12.5 MG TABLET PO SCH (16:35)
[2020-01-15] MEDS: VALPROATE SODIUM SYRUP 250 MG/5 ML UDCUP PO SCH ×2 (16:35→22:03)
[2020-01-15] MEDS: VALSARTAN 160 MG TABLET PO SCH ×2 (16:38→22:03)
[2020-01-15] MEDS: CALCITRIOL 0.25 MCG CAPSULE PO SCH (16:38)
[2020-01-15] MEDS: MEROPENEM 500 MG in NORMAL SALINE 50 ML IV SCH (17:28)
--- NOTE | 2020-01-15 17:53 | PDOC PROGRESS REPORT ---
Subjective Date:: 01/15/20 Subjective:: Yesterday, he refused to take pills, including Risperdal. Overnight, again, he became extremely agitated and violent. Security had to be called several times throughout the day. He was a danger to himself and those caring for him. He received Haldol 5 mg IV X1 overnight and he has since been very somnolent today. Reason For Visit: END STAGE RENAL DISEASE,DIALYSIS Physical Exam Vital Signs: Temp Pulse Resp BP Pulse Ox 98.2 F 72 17 132/60 H 99 01/15/20 08:30 01/15/20 07:48 01/15/20 07:48 01/15/20 07:48 01/15/20 07:48 Intake & Output 01/14/20 01/15/20 01/16/20 06:59 06:59 06:59 Intake Total 2392 1250 240 Output Total 2900 2500 Balance -508 1250 -2260 Weight 108.8 kg 108.2 kg General appearance: PRESENT: no acute distress, other - somnolent, arousable to voice but falls asleep quickly after waking up Eye exam: PRESENT: conjunctiva pale Mouth exam: PRESENT: moist Throat exam: ABSENT: post pharyngeal erythema Neck exam: ABSENT: JVD Respiratory exam: PRESENT: clear to auscultation liseth Cardiovascular exam: PRESENT: RRR GI/Abdominal exam: PRESENT: normal bowel sounds, soft. ABSENT: tenderness Gentrourinary exam: ABSENT: indwelling catheter Extremities exam: PRESENT: other - LLE 2+ edema Musculoskeletal exam: PRESENT: ambulatory Neurological exam: PRESENT: other - somnolent Focused psych exam: ABSENT: restlessness Skin exam: ABSENT: rash Results Laboratory Results: 01/15/20 06:35 01/15/20 06:35 01/15/20 01/15/20 06:35 06:35 WBC 5.4 RBC 3.13 L Hgb 9.0 L Hct 27.4 L MCV 88 MCH 28.7 MCHC 32.8 RDW 15.2 H Plt Count 393 Sodium 137.5 Potassium 4.8 Chloride 102 Carbon Dioxide 24 Anion Gap 12 BUN 26 H Creatinine 4.41 H Est GFR ( Amer) 17 L Glucose 121 H Calcium 9.2 01/10/20 16:50 Blood Blood Culture - Final NO GROWTH IN 5 DAYS Impressions: Head CT 01/09/20 15:12 IMPRESSION: 1. No significant interval change. Involving left MCA infarct as expected, no acute intracranial hemorrhage, mass, or evidence of acute territorial infarct. 2. Moderate chronic small vessel ischemic change and intracranial atherosclerosis is stable. EVIDENCE OF ACUTE STROKE: NO. Forearm X-Ray 01/10/20 00:00 IMPRESSION: Focal soft tissue prominence of the lateral distal forearm without underlying osseous abnormality. Chest X-Ray 01/10/20 08:36 IMPRESSION: Somewhat improved pulmonary examination with persistent cardiomega ly and central vascular congestion. Interval placement of a dialysis catheter. Abdomen CT 01/10/20 09:45 IMPRESSION: No acute intraabdominal findings on noncontrast Small bilateral pleural effusions with bilateral airspace, edema versus pneumonia Hand X-Ray 01/10/20 09:58 IMPRESSION: Mild, diffuse soft tissue edema without underlying osseous injury. Venous Doppler Study 01/15/20 00:00 IMPRESSION: NO EVIDENCE DVT OR SVT IN THE LEFT LEG. 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 Is this a current diagnosis for this admission?: Yes (3) ESRD (end stage renal disease) on dialysis Is this a current diagnosis for this admission?: Yes (4) Essential hypertension Is this a current diagnosis for this admission?: Yes (5) Expressive aphasia Is this a current diagnosis for this admission?: Yes (6) Pseudomonas urinary tract infection Is this a current diagnosis for this admission?: Yes (7) Hematemesis Qualifiers: Nausea presence: without nausea Qualified Code(s): K92.0 - Hematemesis Is this a current diagnosis for this admission?: Yes (8) Seizure Is this a current diagnosis for this admission?: Yes (9) Urinary tract infection Qualifiers: Urinary tract infection type: acute cystitis Hematuria presence: without hematuria Qualified Code(s): N30.00 - Acute cystitis without hematuria Is this a current diagnosis for this admission?: Yes (10) Left acute arterial ischemic stroke, MCA (middle cerebral artery) Is this a current diagnosis for this admission?: Yes (11) Physical deconditioning Is this a current diagnosis for this admission?: Yes - Plan Summary Summary: JARED HORVATH JR is a 59 year old man with PMH of ESRD on HD, CHF, HTN, HLD, PAD and recent left MCA stroke complicated by receptive/expressive aphasia and impulse/safety awareness who presented on 01/09/2020 due to seizure-like activity. He was recently discharged from [facility] after a prolonged hospitalization from 12/19-12/31/2019 due to ADHF and acute left MCA stroke. He was discharged home with home health services. Since being discharged home , Mr. Horvath has been very difficult to manage due to the behavioral changes associated with his stroke. He has repeatedly refused dialysis, has refused to take any of his medications, has been defecating in the kitchen sink, has tried to drive a car despite being impaired, etc. He was brought to the ED on 01/07/20 but refused admission/HD and was sent home. He was brought back again on 01/08 after an apparent seizure. When he woke up in the ED, he became very combative and was given ketamine. He was initially kept in the ED as a social hold while director of social services was trying to place him in a SNF, per family's request. On 01/10/2020, he developed hematemesis with stable vital signs and H/H. Hospitalist service was subsequently asked to admit for further work up and management. Acute metabolic encephalopathy: he was with family at [facility] when he suddenly dropped to the ground and had seizure-like activity. By the time EMS arrived, he was reportedly post-ictal. Upon becoming more alert, he became extremely combative. and IM ketamine was administered by EMS prior to arrival to the ED. Unclear if he truly had a seizure or if he had seizure-like activity in the s/o vasovagal syncope. He has no seizure disorder and no further evidence of seizure activity this hospitalization. CT head on arrival did not show any acute changes besides previously known L MCA stroke. - DC Keppra as this medication is known to cause behavioral problems, including aggression/agitation - restart home depakote at 500 mg BID Acute L MCA Ischemic Stroke (11/2019): he has suffered significant expressive aphasia as well as behavioral changes due to this stroke. Family is requesting chemical sedation in order to control his behavioral issues so that he can get the medications, HD and other medical interventions that could potentially prolong his life. Multiple family meetings have been held to discuss options and the risks and benefits of these options. Family is aware that antipsychotic medications increase his risk of , stroke, seizure, cardiac arrhythmias and hyper-somnolence. Psychiatry was consulted for medication recommendations and he was tried on Risperdal, but repeatedly refused to swallow the medication, and was therefore not actually sedated yesterday. He repeatedly assaulted his nurses and tailor helper, required hospital security to restrain him multiple times throughout the day, and then finally was given a dose of Haldol 5 mg IV overnight as he was a danger to himself and others. He is now over-sedated as a result. Unfortunately, Risperdal will not work since he will not swallow the medication, so I will switch to low-dose Zyprexa ODT BID in an effort to prevent his violent outbursts and unsafe behaviors, which are putting both him and our staff at risk of harm. We will try to avoid further doses of Haldol and BZD as much as possible, as per psych recommendations, but these medications may unfortunately be necessary during episodes in which he can not be verbally calmed down and is at risk of harming himself or others. - I spoke with the psych team yesterday about my concerns. I asked to speak with the attending psychiatrist yesterday and have not received a call back. - he will eventually benefit from the addition of SSRI therapy when he is more reliably taking oral medications - continue ASA and high intensity statin therapy Pseudomonas UTI - meropenem x7 days (D1: 01/13/2020) ESRD on HD (MWF) via Permacath - Nephrology consulted Anemia of CKD - H/H stable without signs or symptoms of acute blood loss - Epo with HD Essential Hypertension: uncontrolled due to medication nonadherence. Hopeful that antipsychotic therapy will help patient adhere to medications more regularly. Also, will switch medications to short-acting formulations that are easier to crush. Hematemesis: unclear exactly what this episode was related to, or if patient truly ever experienced hematemesis or just regurgitated red-appearing food. He has had no further episodes of GI bleeding and H/H remains stable. DVT ppx: heparin Dispo: He will need placement for ongoing PT, OT, NEON TECHNICIAN, HD and ideally behavior management. Family is unable to continue caring for him at home. - Time Time Spent with patient: 35 or more minutes Anticipated Discharge [facility]position[facility] Anticipated Discharge Timeframe: within 48 hours
[2020-01-15] MEDS: ATORVASTATIN CALCIUM 40 MG TABLET PO SCH (22:03)
[2020-01-16] MEDS: HYDRALAZINE HCL 25 MG TABLET PO SCH ×5 (00:16→21:08)
[2020-01-16] MEDS: CARVEDILOL 12.5 MG TABLET PO SCH ×3 (00:16→21:39)
[2020-01-16] MEDS: HEPARIN SOD (PORCINE) 5,000 UNIT/ML 1 ML VIAL SUBCUT SCH ×3 (05:18→21:39)
[2020-01-16] MEDS: ISOSORBIDE DINITRATE 20 MG TABLET PO SCH ×3 (06:32→21:39)
[2020-01-16] MEDS: CALCIUM ACETATE 667 MG CAPSULE PO SCH ×3 (11:55→17:12)
[2020-01-16] MEDS: ASPIRIN 81 MG TABLET, CHEWABLE PO SCH (11:56)
[2020-01-16] MEDS: CALCITRIOL 0.25 MCG CAPSULE PO SCH (11:56)
[2020-01-16] MEDS: OLANZAPINE 5 MG TAB.RAPDIS PO SCH ×2 (11:56→21:40)
[2020-01-16] MEDS: BUMETANIDE 1 MG TABLET PO SCH ×2 (11:56→17:13)
[2020-01-16] MEDS: VALSARTAN 160 MG TABLET PO SCH ×2 (11:57→21:39)
[2020-01-16] MEDS: VALPROATE SODIUM SYRUP 250 MG/5 ML UDCUP PO SCH ×2 (11:57→21:40)
--- NOTE | 2020-01-16 14:53 | PDOC PROGRESS REPORT ---
Subjective Date:: 01/16/20 Reason For Visit: END STAGE RENAL DISEASE,DIALYSIS Physical Exam Vital Signs: Temp Pulse Resp BP Pulse Ox 98.0 F 79 17 144/86 H 98 01/16/20 11:48 01/16/20 11:48 01/16/20 11:48 01/16/20 11:48 01/16/20 00:12 Intake & Output 01/15/20 01/16/20 01/17/20 06:59 06:59 06:59 Intake Total 6925 615 7986 Output Total 2500 Balance 1250 -2060 1260 Weight 108.2 kg 42.9 kg Results Laboratory Results: 01/15/20 06:35 01/15/20 06:35 01/10/20 19:07 Blood Blood Culture - Final NO GROWTH IN 5 DAYS 01/10/20 16:50 Blood Blood Culture - Final NO GROWTH IN 5 DAYS Impressions: Head CT 01/09/20 15:12 IMPRESSION: 1. No significant interval change. Involving left MCA infarct as expected, no acute intracranial hemorrhage, mass, or evidence of acute territorial infarct. 2. Moderate chronic small vessel ischemic change and intracranial atherosclerosis is stable. EVIDENCE OF ACUTE STROKE: NO. Forearm X-Ray 01/10/20 00:00 IMPRESSION: Focal soft tissue prominence of the lateral distal forearm without underlying osseous abnormality. Chest X-Ray 01/10/20 08:36 IMPRESSION: Somewhat improved pulmonary examination with persistent cardiomegaly and central vascular congestion. Interval placement of a dialysis catheter. Abdomen CT 01/10/20 09:45 IMPRESSION: No acute intraabdominal findings on noncontrast Small bilateral pleural effusions with bilateral airspace, edema versus p neum[place] Hand X-Ray 01/10/20 09:58 IMPRESSION: Mild, diffuse soft tissue edema without underlying osseous injury. Venous Doppler Study 01/15/20 00:00 IMPRESSION: NO EVIDENCE DVT OR SVT IN THE LEFT LEG. Assessment and Plan - Plan Summary Summary: JARED HORVATH JR is a 59 year old man with PMH of ESRD on HD, CHF, HTN, HLD, PAD and recent left MCA stroke complicated by receptive/expressive aphasia and impulse/safety awareness who presented on 01/09/2020 due to seizure-like activity. He was recently discharged from [facility] after a prolonged hospitalization from 12/19-12/31/2019 due to ADHF and acute left MCA stroke. He was discharged home with home health services. Since being discharged home , Mr. Horvath has been very difficult to manage due to the behavioral changes associated with his stroke. He has repeatedly refused dialysis, has refused to take any of his medications, has been defecating in the kitchen sink, has tried to drive a car despite being impaired, etc. He was brought to the ED on 01/07/20 but refused admission/HD and was sent home. He was brought back again on 01/08 after an apparent seizure. When he woke up in the ED, he became very combative and was given ketamine. He was initially kept in the ED as a social hold while social work program coordinator was trying to place him in a SNF, per family's request. On 01/10/2020, he developed hematemesis with stable vital signs and H/H. Hospitalist service was subsequently asked to admit for further work up and management. Acute metabolic encephalopathy: he was with family at [facility] when he suddenly dropped to the ground and had seizure-like activity. By the time EMS arrived, he was reportedly post-ictal. Upon becoming more alert, he became extremely combat bhavik. and IM ketamine was administered by EMS prior to arrival to the ED. Unclear if he truly had a seizure or if he had seizure-like activity in the s/o vasovagal syncope. He has no seizure disorder and no further evidence of seizure activity this hospitalization. CT head on arrival did not show any acute changes besides previously known L MCA stroke. - DC Keppra as this medication is known to cause behavioral problems, including aggression/agitation - restart home depakote at 500 mg BID Acute L MCA Ischemic Stroke (11/2019): he has suffered significant expressive a phasia as well as behavioral changes due to this stroke. Family is requesting chemical sedation in order to control his behavioral issues so that he can get the medications, HD and other medical interventions that could potentially prolong his life. Multiple family meetings have been held to discuss options and the risks and benefits of these options. Family is aware that antipsychotic medications increase his risk of , stroke, seizure, cardiac arrhythmias and hyper-somnolence. Psychiatry was consulted for medication recommendations and he was tried on Risperdal, but repeatedly refused to swallow the medication, and was therefore not actually sedated yesterday. He repeatedly assaulted his nurses and slate worker, required hospital security to restrain him multiple times throughout the day, and then finally was given a dose of Haldol 5 mg IV overnight as he was a danger to himself and others. He is now over-sedated as a result. Unfortunately, Risperdal will not work since he will not swallow the medication, so I will switch to low-dose Zyprexa ODT BID in an effort to prevent his violent outbursts and unsafe behaviors, which are putting both him and our staff at risk of harm. We will try to avoid further doses of Haldol and BZD as much as possible, as per psych recommendations, but these medications may unfortunately be necessary during episodes in which he can not be verbally calmed down and is at risk of harming himself or others. - I spoke with the psych team yesterday about my concerns. I asked to speak with the attending psychiatrist yesterday and have not received a call back. - he will eventually benefit from the addition of SSRI therapy when he is more reliably taking oral medications - continue ASA and high intensity statin therapy Pseudomonas UTI - meropenem x7 days (D1: 01/13/2020) ESRD on HD (MWF) via Permacath - Nephrology consulted Anemia of CKD - H/H stable without signs or symptoms of acute blood loss - Epo with HD Essential Hypertension: uncontrolled due to medication nonadherence. Hopeful joey t antipsychotic therapy will help patient adhere to medications more regularly. Also, will switch medications to short-acting formulations that are easier to crush. Hematemesis: unclear exactly what this episode was related to, or if patient truly ever experienced hematemesis or just regurgitated red-appearing food. He has had no further episodes of GI bleeding and H/H remains stable. DVT ppx: heparin Dispo: He will need placement for ongoing PT, OT, STATION INSPECTOR, HD and ideally behavior management. Family is unable to continue caring for him at home.
--- NOTE | 2020-01-16 15:00 | PDOC PROGRESS REPORT ---
Subjective Date:: 01/16/20 Subjective:: As per admitting physician JOHNATHON HORVATH JR is a 59 year old male, PMH of ESRD on HD, CHF, HLD, PVD, recent Left MCA stroke, who came in the ED due to altered mental status. He was recently discharged from [facility] for Pulm edema requiring intubation and Left MCA stroke that has left him aphasic. According to his daughter since being discharged home Johnathon has been very difficult to manage at home because of behavioral changes 2/2 to his stroke. He has refused dialysis and has not had one since discharge, he has refused to take any of his medications, has been defecating in the kitchen sink, has tried to drive a car despite being impaired. He was brought to the ED on 01/07/20 where he again refused admission and dialysis and was sent home. He was brought back again on January 08 after an apparent seizure. When he woke up in the ED he became very combative and was given ketamine. He was on social hold in the ED while social service director was trying to place him on a rehab. Today, he developed about 2 episodes of hematemesis. Patients vital signs remained stable with no hemoglobin drop. Hospitalist service was asked to admit him. I had a family meeting with the patients , patients daughter terrie Goode from [facility] regarding his current status. Rupa acted as the per diem interpreter for sign language. I discussed with them that the patient has refused dialysis and it is very unlikely that he would agree to this with how he is neurologically. I told them that in order to even administer any oral medications to him let alone dialyze him would necessitate chemically sedating him and also physical restraints. His quality of life will be severely affected and that what we are aiming for is to avoid medical procedures that will just only harm him without having any actual benefit. They are understandably struggling to come up with a decision. Hospice was also discussed with them but they have not made a medical decision about this as well. 01/16/2020. No acute events overnight. Patient has been sleeping overnight, but this afternoon he is awake and alert, sitting in recliner, in no apparent distress, unfortunately patient has severe receptive and expressive aphasia, not appear to be in any apparent distress. Reason For Visit: END STAGE RENAL DISEASE,DIALYSIS Physical Exam Vital Signs: Temp Pulse Resp BP Pulse Ox 98.0 F 79 17 144/86 H 98 01/16/20 11:48 01/16/20 11:48 01/16/20 11:48 01/16/20 11:48 01/16/20 00:12 Intake & Output 01/15/20 01/16/20 01/17/20 06:59 06:59 06:59 Intake Total 5373 963 8674 Output Total 2500 Balance 1250 -2060 1260 Weight 108.2 kg 42.9 kg General appearance: PRESENT: no acute distress, well-developed, well-nourished Respiratory exam: PRESENT: clear to auscultation liseth. ABSENT: rales, rhonchi, wheezes Cardiovascular exam: PRESENT: RRR. ABSENT: diastolic murmur, rubs, systolic murmur GI/Abdominal exam: PRESENT: normal bowel sounds, soft. ABSENT: distended, gua rding, mass, organolmegaly, rebound, tenderness Neurological exam: PRESENT: alert, awake, oriented to time, oriented to situation, CN II-XII grossly intact, aphasic. ABSENT: motor sensory deficit Results Laboratory Results: 01/15/20 06:35 01/15/20 06:35 01/10/20 19:07 Blood Blood Culture - Final NO GROWTH IN 5 DAYS 01/10/20 16:50 Blood Blood Culture - Final NO GROWTH IN 5 DAYS Impressions: Head CT 01/09/20 15:12 IMPRESSION: 1. No significant interval change. Involving left MCA infarct as expected, no acute intracranial hemorrhage, mass, or evidence of acute territorial infarct. 2. Moderate chronic small vessel ischemic change and intracranial atherosclerosis is stable. EVIDENCE OF ACUTE STROKE: NO. Forearm X-Ray 01/10/20 00:00 IMPRESSION: Focal soft tissue prominence of the lateral distal forearm without underlying osseous abnormality. Chest X-Ray 01/10/20 08:36 IMPRESSION: Somewhat improved pulmonary examination with persistent cardiomegaly and central vascular congestion. Interval placement of a dialysis catheter. Abdomen CT 01/10/20 09:45 IMPRESSION: No acute intraabdominal findings on noncontrast Small bilateral pleural effusions with bilateral airspace, edema versus pneumonia Hand X-Ray 01/10/20 09:58 IMPRESSION: Mild, diffuse soft tissue edema without underlying osseous injury. Venous Doppler Study 01/15/20 00:00 IMPRESSION: NO EVIDENCE DVT OR SVT IN THE LEFT LEG. Assessment and Plan - Diagnosis (1) Acute metabolic encephalopathy Is this a current diagnosis for this admission?: Yes Plan: - has been refusing medications including dialysis since discharge from hospital 12/20/19 - came in with 1 episode of seizures - this is likely because of neurologic changes from recent stroke on top of missed dialysis - please refer to ACP note regarding discussions with his family - haldol PRN for agitation - Ativan PRN for seizures - per speech therapist speech is largely dysfluent with few true words produced. Patient was unable to name pictures, was unable to complete automatic speech sequences, and was unable to imitate words or phonemes. Patient does have some preserved social language with greetings, etc. (2) ESRD (end stage renal disease) on dialysis Is this a current diagnosis for this admission?: Yes Plan: - had dialysis in patient 01/11/20 - has a permacath - Crea 5.9>4.52 - K 5.1>4.3 - he needs regular scheduled dialysis but he has been known to refuse and with his mental status as it is having him come for a scheduled dialysis will be very challenging. - Nephro consulted. (3) Hematemesis Qualifiers: Nausea presence: without nausea Qualified Code(s): K92.0 - Hematemesis Is this a current diagnosis for this admission?: Yes Plan: - 2 episodes of hematemesis in the ED, no further episode since then - Hgb 9.9>8.2 - BP stable - started on protonix 40 mg IV BID - aspirin held - will monitor for now.He would likely need EGD if it recurs (4) Left acute arterial ischemic stroke, MCA (middle cerebral artery) Is this a current diagnosis for this admission?: Yes Plan: - recent Left MCA infarct Nov 2019 - minimal motor deficit but he has suffered significant expressive aphasia as well as behavioral changes - continue lipitor, carvedilol, - holding aspirin due to hematemesis. Resume if GI bleed has resolved (5) Pseudomonas urinary tract infection Is this a current diagnosis for this admission?: Yes Plan: On meropenem. - Time Time Spent with patient: 25-34 minutes Anticipated Discharge Disposition: Home, Self Care Anticipated Discharge Timeframe: within 48 hours
[2020-01-16] MEDS: MEROPENEM 500 MG in NORMAL SALINE 50 ML IV SCH (17:13)
[2020-01-16] MEDS: ATORVASTATIN CALCIUM 40 MG TABLET PO SCH (21:39)
[2020-01-17] MEDS: ISOSORBIDE DINITRATE 20 MG TABLET PO SCH ×3 (05:13→21:46)
[2020-01-17] MEDS: HEPARIN SOD (PORCINE) 5,000 UNIT/ML 1 ML VIAL SUBCUT SCH ×3 (05:13→21:48)
[2020-01-17] MEDS: HYDRALAZINE HCL 25 MG TABLET PO SCH ×3 (05:13→21:48)
[2020-01-17] MEDS: OLANZAPINE 5 MG TAB.RAPDIS PO SCH ×2 (11:28→21:46)
[2020-01-17] MEDS: CALCITRIOL 0.25 MCG CAPSULE PO SCH (11:28)
[2020-01-17] MEDS: CALCIUM ACETATE 667 MG CAPSULE PO SCH ×3 (11:30→17:26)
[2020-01-17] MEDS: BUMETANIDE 1 MG TABLET PO SCH ×2 (11:30→17:26)
[2020-01-17] MEDS: CARVEDILOL 12.5 MG TABLET PO SCH ×2 (11:31→21:47)
[2020-01-17] MEDS: ASPIRIN 81 MG TABLET, CHEWABLE PO SCH (11:31)
[2020-01-17] MEDS: VALSARTAN 160 MG TABLET PO SCH ×2 (11:33→21:46)
[2020-01-17] MEDS: ERGOCALCIFEROL (VITAMIN D2) 50000 UNIT (1.25 MG) CAPSULE PO SCH (11:33)
[2020-01-17] MEDS: VALPROATE SODIUM SYRUP 250 MG/5 ML UDCUP PO SCH ×2 (11:34→21:48)
--- NOTE | 2020-01-17 14:25 | PDOC PROGRESS REPORT ---
Subjective Date:: 01/17/20 Subjective:: As per admitting physician JOHNATHON HORVATH JR is a 59 year old male, PMH of ESRD on HD, CHF, HLD, PVD, recent Left MCA stroke, who came in the ED due to altered mental status. He was recently discharged from [facility] for Pulm edema requiring intubation and Left MCA stroke that has left him aphasic. According to his daughter since being discharged home Johnathon has been very difficult to manage at home because of behavioral changes 2/2 to his stroke. He has refused dialysis and has not had one since discharge, he has refused to take any of his medications, has been defecating in the kitchen sink, has tried to drive a car despite being impaired. He was brought to the ED on 01/07/20 where he again refused admission and dialysis and was sent home. He was brought back again on January 08 after an apparent seizure. When he woke up in the ED he became very combative and was given ketamine. He was on social hold in the ED while social organization professor was trying to place him on a rehab. Today, he developed about 2 episodes of hematemesis. Patients vital signs remained stable with no hemoglobin drop. Hospitalist service was asked to admit him. I had a family meeting with the patients , patients daughter terrie Goode from [facility] regarding his current status. Rupa acted as the ore miner blasting for sign language. I discussed with them that the patient has refused dialysis and it is very unlikely that he would agree to this with how he is neurologically. I told them that in order to even administer any oral medications to him let alone dialyze him would necessitate chemically sedating him and also physical restraints. His quality of life will be severely affected and that what we are aiming for is to avoid medical procedures that will just only harm him without having any actual benefit. They are understandably struggling to come up with a decision. Hospice was also discussed with them but they have not made a medical decision about this as well. 01/16/2020. No acute events overnight. Patient has been sleeping overnight, but this afternoon he is awake and alert, sitting in recliner, in no apparent distress, unfortunately patient has severe receptive and expressive aphasia, not appear to be in any apparent distress. 01/17/2020. No acute events overnight. Patient has been more compliant with his medication and p.o. intake, is still having significant receptive and expressive aphasia,. He in apparent distress. Reason For Visit: END STAGE RENAL DISEASE,DIALYSIS Physical Exam Vital Signs: Temp Pulse Resp BP Pulse Ox 97.7 F 67 20 155/74 H 98 01/17/20 11:46 01/17/20 11:46 01/17/20 11:46 01/17/20 11:46 01/17/20 11:46 Intake & Output 01/16/20 01/17/20 01/18/20 06:59 06:59 06:59 Intake Total 440 2790 Output Total 2500 0 Balance -206 2790 Weight 42.9 kg 42.9 kg General appearance: PRESENT: no acute distress, well-developed, well-nourished Head exam: PRESENT: atraumatic, normocephalic Respiratory exam: PRESENT: clear to auscultation liseth. ABSENT: rales, rhonchi, wheezes Cardiovascular exam: PRESENT: RRR. ABSENT: diastolic murmur, rubs, systolic murmur GI/Abdominal exam: PRESENT: normal bowel sounds, soft. ABSENT: distended, guarding, mass, organolmegaly, rebound, tenderness Neurological exam: PRESENT: alert, awake, CN II-XII grossly intact, aphasic. ABSENT: motor sensory deficit Skin exam: PRESENT: dry, intact, warm. ABSENT: cyanosis, rash Results Laboratory Results: 01/15/20 06:35 01/15/20 06:35 Impressions: Head CT 01/09/20 15:12 IMPRESSION: 1. No significant interval change. Involving left MCA infarct as expected, no acute intracranial hemorrhage, mass, or evidence of acute territorial infarct. 2. Moderate chronic small vessel ischemic change and intracranial atherosclerosis is stable. EVIDENCE OF ACUTE STROKE: NO. Forearm X-Ray 01/10/20 00:00 IMPRESSION: Focal soft tissue prominence of the lateral distal forearm without underlying osseous abnormality. Chest X-Ray 01/10/20 08:36 IMPRESSION: Somewhat improved pulmonary examination with persistent cardiomegaly and central vascular congestion. Interval placement of a dialysis catheter. Abdomen CT 01/10/20 09:45 IMPRESSION: No acute intraabdominal findings on noncontrast Small bilateral pleural effusions with bilateral airspace, edema versus pneumonia Hand X-Ray 01/10/20 09:58 IMPRESSION: Mild, diffuse soft tissue edema without underlying osseous injury. Venous Doppler Study 01/15/20 00:00 IMPRESSION: NO EVIDENCE DVT OR SVT IN THE LEFT LEG. Assessment and Plan - Diagnosis (1) Acute metabolic encephalopathy Is this a current diagnosis for this admission?: Yes Plan: Patient appears to be at his baseline which unfortunately is severe receptive and expressive aphasia due to recent stroke. Is awake and alert and does not appear to have any focal neurological symptoms. Taking his p.o. medication and tolerating his food. Initially was refusing medications including dialysis since discharge from hospital 12/20/19 Came in with 1 episode of seizures This is likely because of neurologic changes from recent stroke on top of missed dialysis Continue haldol PRN for agitation Continue ativan PRN for seizures Per speech therapist speech is largely dysfluent with few true words produced. Patient was unable to name pictures, was unable to complete automatic speech sequences, and was unable to imitate words or phonemes. Patient does have some preserved social language with greetings, etc. Plan is possible discharge to rehab. (2) ESRD (end stage renal disease) on dialysis Is this a current diagnosis for this admission?: Yes Plan: Dialysis Saturday. Nephrology on board. Possible dialysis tomorrow. Monitor volume status and electrolytes, replace as needed. (3) Hematemesis Qualifiers: Nausea presence: without nausea Qualified Code(s): K92.0 - Hematemesis Is this a current diagnosis for this admission?: Yes Plan: Resolved. Patient had 2 episodes of hematemesis in the ED, no further episode since then Continue protonix 40 mg IV BID He would likely need EGD if it recurs (4) Left acute arterial ischemic stroke, MCA (middle cerebral artery) Is this a current diagnosis for this admission?: Yes Plan: Patient has severe motor and receptive aphasia. Recent Left MCA infarct Nov 2019 Minimal motor deficit but he has suffered significant expressive aphasia as well as behavioral changes Continue lipitor, carvedilol, asa. (5) Pseudomonas urinary tract infection Is this a current diagnosis for this admission?: Yes Plan: On meropenem. - Time Time Spent with patient: 25-34 minutes Medications reviewed and adjusted accordingly: Yes Anticipated Discharge Disposition: Shelter Facility Anticipated Discharge Timeframe: within 24 hours
[2020-01-17] MEDS: MEROPENEM 500 MG in NORMAL SALINE 50 ML IV SCH (17:23)
--- NOTE | 2020-01-17 17:39 | PDOC CONSULTATION ---
Consultation-Blank Consultation: Behavioral Health Consult: Chart review Presenting Problem: Less than 30 days post stroke, with behavioral and aggressive issues, medication recommendations were requested and provided to help manage the behavioral/aggressive issues in order to get patient into more [facility] care. Chart review revealed patient had not had any incidences (been calm and cooperative) the past 2 days, has improved by mouth intake and taking medications, and felt to be at a likely new baseline which consists of severe receptive and expressive aphasia likely due to recent stroke. The plan [facility] for [facility]. Now that he is more manageable this is possible. Impression/Plan: Patient is cleared from acute psychiatric services. Behavioral Health was consulted to provide medication recommendations to aid in stabilization and management of behaviors and aggression that followed patient having a stroke. It seems patient is stabilized at this time. Please re consult Behavioral Health if further assistance is needed. Thank you. Consulted with Dr. Oropeza regarding the management and care of patient. Hospitalist aware via phone call.
[2020-01-17] MEDS ORDERED: EPOETIN ALFA-EPBX 20,000 UNIT in SYRINGE, DISPOSABLE, 1 EACH IV PRN (19:53)
[2020-01-17] MEDS: ATORVASTATIN CALCIUM 40 MG TABLET PO SCH (21:46)
[2020-01-18] MEDS ORDERED: NORMAL SALINE 1000 ML 1,000 ML IV PRN (05:00)
[2020-01-18] MEDS ORDERED: HEPARIN SOD (PORCINE) 1,000 UNIT/ML 10 ML VIAL IV PRN (05:00)
[2020-01-18] MEDS: ISOSORBIDE DINITRATE 20 MG TABLET PO SCH ×3 (05:32→21:38)
[2020-01-18] MEDS: HYDRALAZINE HCL 25 MG TABLET PO SCH ×3 (05:32→21:38)
[2020-01-18] MEDS: HEPARIN SOD (PORCINE) 5,000 UNIT/ML 1 ML VIAL SUBCUT SCH ×3 (05:32→21:38)
[2020-01-18 06:38] LABS: HEMATOCRIT 27.2 % (37.9-51.0); HEMOGLOBIN 8.9 g/dL (13.5-17.0); MEAN CORPUSCULAR HEMOGLOBIN 29.3 pg (27.0-33.4); MEAN CORPUSCULAR HGB CONC 32.7 g/dL (32.0-36.0); MEAN CORPUSCULAR VOLUME 90 fl (80-97); PLATELET COUNT 402 10^3/uL (150-450); RED BLOOD COUNT 3.03 10^6/uL (4.35-5.55); RED CELL DISTRIBUTION WIDTH 15.4 % (11.5-14.0); WHITE BLOOD COUNT 5.5 10^3/uL (4.0-10.5)
[2020-01-18 07:43] LABS: ANION GAP 11 (5-19); BLOOD UREA NITROGEN 29 mg/dL (7-20); CALCIUM 8.9 mg/dL (8.4-10.2); CARBON DIOXIDE 25 mmol/L (22-30); CHLORIDE 99 mmol/L (98-107); GLUCOSE 144 mg/dL (75-110); POTASSIUM 4.6 mmol/L (3.6-5.0)
[2020-01-18] MEDS ORDERED: EPOETIN ALFA-EPBX 20,000 UNIT in SYRINGE, DISPOSABLE, 1 EACH IV PRN (08:28)
[2020-01-18] MEDS: CALCIUM ACETATE 667 MG CAPSULE PO SCH ×4 (10:30→17:57)
[2020-01-18] MEDS: ASPIRIN 81 MG TABLET, CHEWABLE PO SCH ×2 (10:30→10:43)
[2020-01-18] MEDS: BUMETANIDE 1 MG TABLET PO SCH ×3 (10:30→17:57)
[2020-01-18] MEDS: CARVEDILOL 12.5 MG TABLET PO SCH ×3 (10:30→21:37)
[2020-01-18] MEDS: CALCITRIOL 0.25 MCG CAPSULE PO SCH ×2 (10:31→10:44)
[2020-01-18] MEDS: VALSARTAN 160 MG TABLET PO SCH ×3 (10:31→21:38)
[2020-01-18] MEDS: OLANZAPINE 5 MG TAB.RAPDIS PO SCH ×3 (10:31→21:39)
[2020-01-18] MEDS: VALPROATE SODIUM SYRUP 250 MG/5 ML UDCUP PO SCH ×3 (10:32→21:37)
[2020-01-18] MEDS ORDERED: HALOPERIDOL LACTATE INJ 5 MG/1 ML VIAL ONE (11:20)
[2020-01-18] MEDS ORDERED: HALOPERIDOL LACTATE INJ 5 MG/1 ML VIAL IM ONE (12:15)
--- NOTE | 2020-01-18 12:47 | PDOC PROGRESS REPORT ---
Subjective Date:: 01/18/20 Subjective:: As per admitting physician JOHNATHON HORVATH JR is a 59 year old male, PMH of ESRD on HD, CHF, HLD, PVD, recent Left MCA stroke, who came in the ED due to altered mental status. He was recently discharged from [facility] for Pulm edema requiring intubation and Left MCA stroke that has left him aphasic. According to his daughter since being discharged home Johnathon has been very difficult to manage at home because of behavioral changes 2/2 to his stroke. He has refused dialysis and has not had one since discharge, he has refused to take any of his medications, has been defecating in the kitchen sink, has tried to drive a car despite being impaired. He was brought to the ED on 01/07/20 where he again refused admission and dialysis and was sent home. He was brought back again on January 08 after an apparent seizure. When he woke up in the ED he became very combative and was given ketamine. He was on social hold in the ED while social work instructor was trying to place him on a rehab. Today, he developed about 2 episodes of hematemesis. Patients vital signs remained stable with no hemoglobin drop. Hospitalist service was asked to admit him. I had a family meeting with the patients , patients daughter terrie Goode from [facility] regarding his current status. Rupa acted as the safety teacher for sign language. I discussed with them that the patient has refused dialysis and it is very unlikely that he would agree to this with how he is neurologically. I told them that in order to even administer any oral medications to him let alone dialyze him would necessitate chemically sedating him and also physical restraints. His quality of life will be severely affected and that what we are aiming for is to avoid medical procedures that will just only harm him without having any actual benefit. They are understandably struggling to come up with a decision. Hospice was also discussed with them but they have not made a medical decision about this as well. 01/16/2020. No acute events overnight. Patient has been sleeping overnight, but this afternoon he is awake and alert, sitting in recliner, in no apparent distress, unfortunately patient has severe receptive and expressive aphasia, not appear to be in any apparent distress. 01/17/2020. No acute events overnight. Patient has been more compliant with his medication and p.o. intake, is still having significant receptive and expressive aphasia,. He in apparent distress. 01/18/2020. Saw patient while receiving hemodialysis, and no apparent distress, patient has been calm and cooperative for the last couple of days, unfortunately this morning after receiving hemodialysis patient became agitated again and was trying to leave the hospital, refusing to take his p.o. medication, was given 1 dose of IM Haldol with moderate improvement, otherwise no acute events. Reason For Visit: END STAGE RENAL DISEASE,DIALYSIS Physical Exam Vital Signs: Temp Pulse Resp BP Pulse Ox 97.6 F 71 18 124/68 97 01/18/20 10:49 01/18/20 10:49 01/18/20 10:49 01/18/20 10:49 01/18/20 10:49 Intake & Output 01/17/20 01/18/20 01/19/20 06:59 06:59 06:59 Intake Total 2790 1330 Output Total 0 0 3000 Balance 2790 1330 -3000 Weight 42.9 kg 100.3 kg 100.3 kg General appearance: PRESENT: no acute distress, well-developed, well-nourished Head exam: PRESENT: atraumatic, normocephalic Respiratory exam: PRESENT: clear to auscultation liseth. ABSENT: rales, rhonchi, wheezes Cardiovascular exam: PRESENT: RRR. ABSENT: diastolic murmur, rubs, systolic murmur GI/Abdominal exam: PRESENT: normal bowel sounds, soft. ABSENT: distended, guarding, mass, organolmegaly, rebound, tenderness Neurological exam: PRESENT: alert, awake, CN II-XII grossly intact, aphasic. ABSENT: motor sensory deficit Skin exam: PRESENT: other - Bilateral lower extremity stasis dermatitis, worse on the left side. Results Laboratory Results: 01/18/20 06:11 01/18/20 06:11 01/18/20 01/18/20 06:11 06:11 WBC 5.5 RBC 3.03 L Hgb 8.9 L Hct 27.2 L MCV 90 MCH 29.3 MCHC 32.7 RDW 15.4 H Plt Count 402 Sodium 134.9 L Potassium 4.6 Chloride 99 Carbon Dioxide 25 Anion Gap 11 BUN 29 H Creatinine 5.19 H Est GFR ( Amer) 14 L Glucose 144 H Calcium 8.9 Magnesium 1.9 Impressions: Head CT 01/09/20 15:12 IMPRESSION: 1. No significant interval change. Involving left MCA infarct as expected, no acute intracranial hemorrhage, mass, or evidence of acute territorial infarct. 2. Moderate chronic small vessel ischemic change and intracranial atherosclerosis is stable. EVIDENCE OF ACUTE STROKE: NO. Forearm X-Ray 01/10/20 00:00 IMPRESSION: Focal soft tissue prominence of the lateral distal forearm without underlying osseous abnormality. Chest X-Ray 01/10/20 08:36 IMPRESSION: Somewhat improved pulmonary examination with persistent cardiomegaly and central vascular congestion. Interval placement of a dialysis catheter. Abdomen CT 01/10/20 09:45 IMPRESSION: No acute intraabdominal findings on noncontrast Small bilateral pleural effusions with bilateral airspace, edema versus pneumonia Hand X-Ray 01/10/20 09:58 IMPRESSION: Mild, diffuse soft tissue edema without underlying osseous injury. Venous Doppler Study 01/15/20 00:00 IMPRESSION: NO EVIDENCE DVT OR SVT IN THE LEFT LEG. Assessment and Plan - Diagnosis (1) Acute metabolic encephalopathy Is this a current diagnosis for this admission?: Yes (2) ESRD (end stage renal disease) on dialysis Is this a current diagnosis for this admission?: Yes (3) Hematemesis Qualifiers: Nausea presence: without nausea Qualified Code(s): K92.0 - Hematemesis Is this a current diagnosis for this admission?: Yes (4) Left acute arterial ischemic stroke, MCA (middle cerebral artery) Is this a current diagnosis for this admission?: Yes (5) Pseudomonas urinary tract infection Is this a current diagnosis for this admission?: Yes - Time Time Spent with patient: 25-34 minutes Medications reviewed and adjusted accordingly: Yes Anticipated Discharge Disposition: Custodial Facility Anticipated Discharge Timeframe: when bed available
--- NOTE | 2020-01-18 17:16 | PDOC PROGRESS REPORT ---
Subjective Date:: 01/18/20 Subjective:: I am seeing the patient during dialysis this morning. He is calm and just sleep ing through dialysis treatment. While I was seeing him he was awake and allowed me to examine him. There is no agitation at all. Reason For Visit: END STAGE RENAL DISEASE,DIALYSIS Physical Exam Vital Signs: Temp Pulse Resp BP Pulse Ox 98.0 F 73 18 149/73 H 100 01/18/20 08:44 01/17/20 22:46 01/17/20 22:46 01/17/20 22:46 01/17/20 22:46 Intake & Output 01/17/20 01/18/20 01/19/20 06:59 06:59 06:59 Intake Total 2790 1330 Output Total 0 0 Balance 2790 1330 Weight 42.9 kg 100.3 kg Vitals during dialysis: Blood pressure 145/74, heart rate of 59, blood flow rate of 350 mL/min and dialysate flow rate of 800 mL/min. Exam: General appearance: PRESENT: no acute distress, cooperative, well-developed, well-nourished Head exam: PRESENT: atraumatic, normocephalic Eye exam: PRESENT: conjunctiva pink, PERRLA. ABSENT: scleral icterus Neck exam: ABSENT: JVD Respiratory exam: PRESENT: Diminished breath sounds. ABSENT: crackles, rales, rhonchi, unlabored, wheezes Cardiovascular exam: PRESENT: Regular rate rhythm -+S1, +S2. ABSENT: diastolic murmur, systolic murmur GI/Abdominal exam: PRESENT: normal bowel sounds, soft. ABSENT: guarding, mass, tenderness Extremities exam: Trace bilateral lower extremity edema Neurological exam: PRESENT: alert, awake, aphasic. Skin exam: PRESENT: dry, warm, Cardiovascular exam: PRESENT: +S1, +S2, systolic murmur GI/Abdominal exam: PRESENT: normal bowel sounds, soft. ABSENT: organomegaly, tenderness Results Laboratory Results: 01/18/20 06:11 01/18/20 06:11 01/18/20 01/18/20 06:11 06:11 WBC 5.5 RBC 3.03 L Hgb 8.9 L Hct 27.2 L MCV 90 MCH 29.3 MCHC 32.7 RDW 15.4 H Plt Count 402 Sodium 134.9 L Potassium 4.6 Chloride 99 Carbon Dioxide 25 Anion Gap 11 BUN 29 H Creatinine 5.19 H Est GFR ( Amer) 14 L Glucose 144 H Calcium 8.9 Magnesium 1.9 Impressions: Head CT 01/09/20 15:12 IMPRESSION: 1. No significant interval change. Involving left MCA infarct as expected, no acute intracranial hemorrhage, mass, or evidence of acute territorial infarct. 2. Moderate chronic small vessel ischemic change and intracranial atherosclerosis is stable. EVIDENCE OF ACUTE STROKE: NO. Forearm X-Ray 01/10/20 00:00 IMPRESSION: Focal soft tissue prominence of the lateral distal forearm without underlying osseous abnormality. Chest X-Ray 01/10/20 08:36 IMPRESSION: Somewhat improved pulmonary examination with persistent cardiomegaly and central vascular congestion. Interval placement of a dialysis catheter. Abdomen CT 01/10/20 09:45 IMPRESSION: No acute intraabdominal findings on noncontrast Small bilateral pleural effusions with bilateral airspace, edema versus pneumonia Hand X-Ray 01/10/20 09:58 IMPRESSION: Mild, diffuse soft tissue edema without underlying osseous injury. Venous Doppler Study 01/15/20 00:00 IMPRESSION: NO EVIDENCE DVT OR SVT IN THE LEFT LEG. Assessment & Plan - Diagnosis (1) ESRD (end stage renal disease) on dialysis Is this a current diagnosis for this admission?: Yes Plan: We will do dialysis today for 2.5 hours, using the patient's PermCath, with 2 potassium bath, blood flow rate of 350 mL per minute, dialysate flow rate of 820 mL per minute, ultrafiltration 2 to 3 L as tolerated, no heparin and Retacrit with 20,000 units during dialysis intravenously. Patient is cautiously being monitored for any agitation during this dialysis. I called and spoke to the patient's daughter, Phuong Silvestre and discussed plan of care. She confirmed that the patient will go to rehab after this hospitalization. I also confirmed with her that the family would like to continue hemodialysis and she would asked her mom to sit with the patient during dialysis. I also explained to her that at any event that the patient becomes agitated or started to say no to dialysis that we will not be able to do the treatment as an outpatient at [facility] dialysis unit for the patient's safety and the safety of the staff treating him. There is a risk for the patient to be pulling lines that can cause bleeding and exsanguination if that happens. She understood. So we will give it a try after the patient gets discharged if the patient would cooperate. If patient does not cooperate during outpatient dialysis then we would need to revisit the plan of care again to include possibility of hospice. She understood. I also answered her questions. (2) Pseudomonas urinary tract infection Is this a current diagnosis for this admission?: Yes Plan: On meropenem per hospitalist service. 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 (4) Essential hypertension Is this a current diagnosis for this admission?: Yes Plan: Fairly controlled. (5) Expressive aphasia Is this a current diagnosis for this admission?: Yes Plan: Actually seems to be both receptive and expressive aphasia due to recent left MCA stroke. (6) Seizure Is this a current diagnosis for this admission?: Yes Plan: As reported. Currently on Depakote. (7) Anemia in chronic kidney disease (CKD) Is this a current diagnosis for this admission?: Yes Plan: Retacrit during dialysis. (8) Left acute arterial ischemic stroke, MCA (middle cerebral artery) Is this a current diagnosis for this admission?: Yes (9) Type 2 diabetes mellitus Qualifiers: Diabetes mellitus senior living insulin use: without senior living use Diabetes mellitus complication status: with kidney complications Diabetes mellitus complication detail: with chronic kidney disease Chronic kidney disease stage: on chronic dialysis Qualified Code(s): E11.22 - Type 2 diabetes mellitus with diabetic chronic kidney disease; N18.6 - End stage renal disease; Z99.2 - De pendence on renal dialysis Is this a current diagnosis for this admission?: Yes - Notes Notes: Discussed with Dr. Mott and daughter as above. - Time Time with patient: 15-25 minutes
[2020-01-18] MEDS: MEROPENEM 500 MG in NORMAL SALINE 50 ML IV SCH (17:58)
[2020-01-18] MEDS: ATORVASTATIN CALCIUM 40 MG TABLET PO SCH (21:39)
[2020-01-19] MEDS: HYDRALAZINE HCL 25 MG TABLET PO SCH ×3 (05:46→22:43)
[2020-01-19] MEDS: HEPARIN SOD (PORCINE) 5,000 UNIT/ML 1 ML VIAL SUBCUT SCH ×4 (05:46→23:00)
[2020-01-19] MEDS: ISOSORBIDE DINITRATE 20 MG TABLET PO SCH ×3 (05:46→22:42)
[2020-01-19] MEDS: CALCIUM ACETATE 667 MG CAPSULE PO SCH ×3 (07:51→18:32)
[2020-01-19] MEDS ORDERED: GLUCAGON,HUMAN RECOMB 1 MG INJ IM PRN (10:32)
[2020-01-19] MEDS ORDERED: DEXTROSE 50%-WATER 25 GM/50 ML DISP.SYRIN IV PRN ×2 (10:32)
[2020-01-19] MEDS ORDERED: DEXTROSE 40% GEL 15 GM TUBE PO PRN ×2 (10:32)
[2020-01-19] MEDS: ASPIRIN 81 MG TABLET, CHEWABLE PO SCH (11:10)
[2020-01-19] MEDS: BUMETANIDE 1 MG TABLET PO SCH ×2 (11:13→18:32)
[2020-01-19] MEDS: CARVEDILOL 12.5 MG TABLET PO SCH ×2 (11:13→22:43)
[2020-01-19] MEDS: VALSARTAN 160 MG TABLET PO SCH ×2 (11:14→22:45)
[2020-01-19] MEDS: VALPROATE SODIUM SYRUP 250 MG/5 ML UDCUP PO SCH ×2 (11:14→22:50)
[2020-01-19] MEDS: CALCITRIOL 0.25 MCG CAPSULE PO SCH (11:14)
[2020-01-19] MEDS: OLANZAPINE 5 MG TAB.RAPDIS PO SCH ×2 (11:15→22:45)
[2020-01-19] MEDS: INSULIN LISPRO 100 UNIT/ML 3 ML VIAL SUBCUT SCH ×3 (11:42→23:00)
--- NOTE | 2020-01-19 16:47 | PDOC PROGRESS REPORT ---
Subjective Date:: 01/19/20 Subjective:: As per admitting physician JONHATHON HORVATH JR is a 59 year old male, PMH of ESRD on HD, CHF, HLD, PVD, recent Left MCA stroke, who came in the ED due to altered mental status. He was recently discharged from [facility] for Pulm edema requiring intubation and Left MCA stroke that has left him aphasic. According to his daughter since being discharged home Johnathon has been very difficult to manage at home because of behavioral changes 2/2 to his stroke. He has refused dialysis and has not had one since discharge, he has refused to take any of his medications, has been defecating in the kitchen sink, has tried to drive a car despite being impaired. He was brought to the ED on 01/07/20 where he again refused admission and dialysis and was sent home. He was brought back again on January 08 after an apparent seizure. When he woke up in the ED he became very combative and was given ketamine. He was on social hold in the ED while rn social work was trying to place him on a rehab. Today, he developed about 2 episodes of hematemesis. Patients vital signs remained stable with no hemoglobin drop. Hospitalist service was asked to admit him. I had a family meeting with the patients , patients daughter terrie Goode from [facility] regarding his current status. Rupa acted as the suction drum drier operator for sign language. I discussed with them that the patient has refused dialysis and it is very unlikely that he would agree to this with how he is neurologically. I told them that in order to even administer any oral medications to him let alone dialyze him would necessitate chemically sedating him and also physical restraints. His quality of life will be severely affected and that what we are aiming for is to avoid medical procedures that will just only harm him without having any actual benefit. They are understandably struggling to come up with a decision. Hospice was also discussed with them but they have not made a medical decision about this as well. 01/16/2020. No acute events overnight. Patient has been sleeping overnight, but this afternoon he is awake and alert, sitting in recliner, in no apparent distress, unfortunately patient has severe receptive and expressive aphasia, not appear to be in any apparent distress. 01/17/2020. No acute events overnight. Patient has been more compliant with his medication and p.o. intake, is still having significant receptive and expressive aphasia,. He in apparent distress. 01/18/2020. Saw patient while receiving hemodialysis, and no apparent distress, patient has been calm and cooperative for the last couple of days, unfortunately this morning after receiving hemodialysis patient became agitated again and was trying to leave the hospital, refusing to take his p.o. medication, was given 1 dose of IM Haldol with moderate improvement, otherwise no acute events. 01/19/2020. No acute events overnight. Patient has been cooperative with medication intake and has not been agitated since yesterday, has not received any IM Haldol since stated. There is very mild improvement of his aphasia, pe nding transfer to rehab. Reason For Visit: END STAGE RENAL DISEASE,DIALYSIS Physical Exam Vital Signs: Temp Pulse Resp BP Pulse Ox 97.5 F 67 17 134/69 H 100 01/19/20 11:41 01/19/20 11:41 01/19/20 11:41 01/19/20 11:41 01/19/20 11:41 Intake & Output 01/18/20 01/19/20 01/20/20 06:59 06:59 06:59 Intake Total 1330 238 Output Total 0 3000 Balance 1330 -3000 238 Weight 100.3 kg 100.3 kg General appearance: PRESENT: no acute distress, well-developed, well-nourished Head exam: PRESENT: atraumatic, normocephalic Respiratory exam: PRESENT: clear to auscultation liseth. ABSENT: rales, rhonchi, wheezes Cardiovascular exam: PRESENT: RRR. ABSENT: diastolic murmur, rubs, systolic murmur GI/Abdominal exam: PRESENT: normal bowel sounds, soft. ABSENT: distended, guarding, mass, organolmegaly, rebound, tenderness Neurological exam: PRESENT: alert, awake, CN II-XII grossly intact - By observation. Does not follow any command., aphasic. ABSENT: motor sensory deficit Skin exam: PRESENT: dry, intact, warm, other - Bilateral lower extremity stasis dermatitis.. ABSENT: cyanosis, rash Results Laboratory Results: 01/18/20 06:11 01/18/20 06:11 Impressions: Head CT 01/09/20 15:12 IMPRESSION: 1. No significant interval change. Involving left MCA infarct as expected, no acute intracranial hemorrhage, mass, or evidence of acute territorial infarct. 2. Moderate chronic small vessel ischemic change and intracranial atherosclerosis is stable. EVIDENCE OF ACUTE STROKE: NO. Forearm X-Ray 01/10/20 00:00 IMPRESSION: Focal soft tissue prominence of the lateral distal forearm without underlying osseous abnormality. Chest X-Ray 01/10/20 08:36 IMPRESSION: Somewhat improved pulmonary examination with persistent cardiomegaly and central vascular congestion. Interval placement of a dialysis catheter. Abdomen CT 01/10/20 09:45 IMPRESSION: No acute intraabdominal findings on noncontrast Small bilateral pleural effusions with bilateral airspace, edema versus pneumonia Hand X-Ray 01/10/20 09:58 IMPRESSION: Mild, diffuse soft tissue edema without underlying osseous injury. Venous Doppler Study 01/15/20 00:00 IMPRESSION: NO EVIDENCE DVT OR SVT IN THE LEFT LEG. Assessment and Plan - Diagnosis (1) Acute metabolic encephalopathy Is this a current diagnosis for this admission?: Yes Plan: Patient appears to be at his baseline which unfortunately is severe receptive and expressive aphasia due to recent stroke. Is awake and alert and does not appear to have any focal neurological symptoms. Taking his p.o. medication and tolerating his food. Initially was refusing medications including dialysis since discharge from hospital 12/20/19 Came in with 1 episode of seizures This is likely because of neurologic changes from recent stroke on top of missed dialysis Continue haldol PRN for agitation Continue ativan PRN for seizures Per speech therapist speech is largely dysfluent with few true words produced. Patient was unable to name pictures, was unable to complete automatic speech sequences, and was unable to imitate words or phonemes. Patient does have some preserved social language with greetings, etc. Plan is possible discharge to rehab. (2) ESRD (end stage renal disease) on dialysis Is this a current diagnosis for this admission?: Yes Plan: Dialysis Saturday. Nephrology on board. Possible dialysis tomorrow. Monitor volume status and electrolytes, replace as needed. (3) Hematemesis Qualifiers: Nausea presence: without nausea Qualified Code(s): K92.0 - Hematemesis Is this a current diagnosis for this admission?: Yes Plan: Resolved. Patient had 2 episodes of hematemesis in the ED, no further episode since then Continue protonix 40 mg IV BID He would likely need EGD if it recurs (4) Left acute arterial ischemic stroke, MCA (middle cerebral artery) Is this a current diagnosis for this admission?: Yes Plan: Patient has severe motor and receptive aphasia. Recent Left MCA infarct Nov 2019 Minimal motor deficit but he has suffered significant expressive aphasia as well as behavioral changes Continue lipitor, carvedilol, asa. (5) Pseudomonas urinary tract infection Is this a current diagnosis for this admission?: Yes Plan: On meropenem. - Time Time Spent with patient: 25-34 minutes Medications reviewed and adjusted accordingly: Yes Anticipated Discharge Disposition: Snf Facility Anticipated Discharge Timeframe: within 24 hours
[2020-01-19] MEDS: MEROPENEM 500 MG in NORMAL SALINE 50 ML IV SCH (18:55)
[2020-01-19] MEDS: ATORVASTATIN CALCIUM 40 MG TABLET PO SCH (22:44)
[2020-01-20] MEDS ORDERED: NORMAL SALINE 1000 ML 1,000 ML IV PRN (05:00)
[2020-01-20] MEDS ORDERED: EPOETIN ALFA-EPBX 20,000 UNIT in SYRINGE, DISPOSABLE, 1 EACH IV PRN (05:00)
[2020-01-20] MEDS ORDERED: HEPARIN SOD (PORCINE) 1,000 UNIT/ML 10 ML VIAL IV PRN (05:00)
[2020-01-20 05:20] LABS: ABSOLUTE BASOPHILS # (AUTO) 0.1 10^3/uL (0.0-0.2); ABSOLUTE EOSINOPHILS # (AUTO) 0.3 10^3/uL (0.0-0.6); ABSOLUTE LYMPHOCYTES (AUTO) 1.6 10^3/uL (0.5-4.7); ABSOLUTE MONOCYTES (AUTO) 0.6 10^3/uL (0.1-1.4); ABSOLUTE NEUT (AUTO) 4.5 10^3/uL (1.7-8.2); BASOPHILS % (AUTO) 1.1 % (0-2); EOSINOPHILS % (AUTO) 3.7 % (0-6); HEMATOCRIT 27.3 % (37.9-51.0); LYMPHOCYTES % (AUTO) 22.4 % (13-45); MEAN CORPUSCULAR HEMOGLOBIN 29.3 pg (27.0-33.4); MEAN CORPUSCULAR VOLUME 89 fl (80-97); MONOCYTES % (AUTO) 8.4 % (3-13); PLATELET COUNT 332 10^3/uL (150-450); RED BLOOD COUNT 3.08 10^6/uL (4.35-5.55); RED CELL DISTRIBUTION WIDTH 15.6 % (11.5-14.0); SEGMENTED NEUTROPHILS % (AUTO) 64.4 % (42-78); TOTAL CELLS COUNTED % (AUTO) 100 %
[2020-01-20 05:22] LABS: ANION GAP 8 (5-19); BLOOD UREA NITROGEN 36 mg/dL (7-20); CARBON DIOXIDE 30 mmol/L (22-30); CHLORIDE 96 mmol/L (98-107); GLUCOSE 117 mg/dL (75-110); POTASSIUM 4.3 mmol/L (3.6-5.0)
[2020-01-20] MEDS: ISOSORBIDE DINITRATE 20 MG TABLET PO SCH ×3 (06:01→21:18)
[2020-01-20] MEDS: HYDRALAZINE HCL 25 MG TABLET PO SCH ×3 (06:02→21:18)
[2020-01-20] MEDS: HEPARIN SOD (PORCINE) 5,000 UNIT/ML 1 ML VIAL SUBCUT SCH ×3 (06:03→21:19)
[2020-01-20] MEDS: ASPIRIN 81 MG TABLET, CHEWABLE PO SCH (10:54)
[2020-01-20] MEDS: BUMETANIDE 1 MG TABLET PO SCH ×2 (10:54→21:09)
[2020-01-20] MEDS: CALCIUM ACETATE 667 MG CAPSULE PO SCH ×3 (10:54→21:08)
[2020-01-20] MEDS: VALPROATE SODIUM SYRUP 250 MG/5 ML UDCUP PO SCH ×2 (10:54→21:19)
[2020-01-20] MEDS: CALCITRIOL 0.25 MCG CAPSULE PO SCH (10:54)
[2020-01-20] MEDS: VALSARTAN 160 MG TABLET PO SCH ×2 (10:54→21:17)
[2020-01-20] MEDS: CARVEDILOL 12.5 MG TABLET PO SCH ×2 (10:55→21:27)
[2020-01-20] MEDS: OLANZAPINE 5 MG TAB.RAPDIS PO SCH ×2 (10:56→21:19)
[2020-01-20] MEDS: INSULIN LISPRO 100 UNIT/ML 3 ML VIAL SUBCUT SCH ×4 (10:56→21:19)
--- NOTE | 2020-01-20 14:10 | PDOC PROGRESS REPORT ---
Subjective Date:: 01/20/20 Subjective:: As per admitting physician JOHNATHON HORVATH JR is a 59 year old male, PMH of ESRD on HD, CHF, HLD, PVD, recent Left MCA stroke, who came in the ED due to altered mental status. He was recently discharged from [facility] for Pulm edema requiring intubation and Left MCA stroke that has left him aphasic. According to his daughter since being discharged home Johnathon has been very difficult to manage at home because of behavioral changes 2/2 to his stroke. He has refused dialysis and has not had one since discharge, he has refused to take any of his medications, has been defecating in the kitchen sink, has tried to drive a car despite being impaired. He was brought to the ED on 01/07/20 where he again refused admission and dialysis and was sent home. He was brought back again on January 08 after an apparent seizure. When he woke up in the ED he became very combative and was given ketamine. He was on social hold in the ED while aids social worker was trying to place him on a rehab. Today, he developed about 2 episodes of hematemesis. Patients vital signs remained stable with no hemoglobin drop. Hospitalist service was asked to admit him. I had a family meeting with the patients , patients daughter terrie Goode from [facility] regarding his current status. Rupa acted as the senior it project manager for sign language. I discussed with them that the patient has refused dialysis and it is very unlikely that he would agree to this with how he is neurologically. I told them that in order to even administer any oral medications to him let alone dialyze him would necessitate chemically sedating him and also physical restraints. His quality of life will be severely affected and that what we are aiming for is to avoid medical procedures that will just only harm him without having any actual benefit. They are understandably struggling to come up with a decision. Hospice was also discussed with them but they have not made a medical decision about this as well. 01/16/2020. No acute events overnight. Patient has been sleeping overnight, but this afternoon he is awake and alert, sitting in recliner, in no apparent distress, unfortunately patient has severe receptive and expressive aphasia, not appear to be in any apparent distress. 01/17/2020. No acute events overnight. Patient has been more compliant with his medication and p.o. intake, is still having significant receptive and expressive aphasia,. He in apparent distress. 01/18/2020. Saw patient while receiving hemodialysis, and no apparent distress, patient has been calm and cooperative for the last couple of days, unfortunately this morning after receiving hemodialysis patient became agitated again and was trying to leave the hospital, refusing to take his p.o. medication, was given 1 dose of IM Haldol with moderate improvement, otherwise no acute events. 01/19/2020. No acute events overnight. Patient has been cooperative with medication intake and has not been agitated since yesterday, has not received any IM Haldol since stated. There is very mild improvement of his aphasia, pe nding transfer to rehab. 01/20/2020. No acute events overnight. Patient has not been agitated for the last 48 hours, has been taking his medication has been cooperative with physical examination, there is very mild improvement of his aphasia, ambulatory and having normal bowel bladder movement, p.o. tolerant. Pending transfer. Reason For Visit: END STAGE RENAL DISEASE,DIALYSIS Physical Exam Vital Signs: Temp Pulse Resp BP Pulse Ox 98.4 F 81 21 H 137/54 H 100 01/20/20 11:36 01/20/20 11:36 01/20/20 11:36 01/20/20 11:36 01/20/20 11:36 Intake & Output 01/19/20 01/20/20 01/21/20 06:59 06:59 06:59 Intake Total 638 Output Total 3000 2100 Balance -3000 638 -2100 Weight 100.3 kg 100.3 kg General appearance: PRESENT: no acute distress, well-developed, well-nourished Head exam: PRESENT: atraumatic, normocephalic Respiratory exam: PRESENT: clear to auscultation liseth. ABSENT: rales, rhonchi, wheezes Cardiovascular exam: PRESENT: RRR. ABSENT: diastolic murmur, rubs, systolic murmur GI/Abdominal exam: PRESENT: normal bowel sounds, soft. ABSENT: distended, guarding, mass, organolmegaly, rebound, tenderness Extremities exam: PRESENT: full ROM, other - Bilateral lower extremity stasis dermatitis.. ABSENT: calf tenderness, clubbing, pedal edema Neurological exam: PRESENT: alert, awake, CN II-XII grossly intact, normal gait, aphasic. ABSENT: motor sensory deficit Results Laboratory Results: 01/20/20 04:55 01/20/20 04:55 01/20/20 01/20/20 04:55 04:55 WBC 7.0 RBC 3.08 L Hgb 9.0 L Hct 27.3 L MCV 89 MCH 29.3 MCHC 33.0 RDW 15.6 H Plt Count 332 Seg Neutrophils % 64.4 Sodium 133.7 L Potassium 4.3 Chloride 96 L Carbon Dioxide 30 Anion Gap 8 BUN 36 H Creatinine 5.78 H Est GFR ( Amer) 12 L Glucose 117 H Calcium 9.0 Impressions: Head CT 01/09/20 15:12 IMPRESSION: 1. No significant interval change. Involving left MCA infarct as expected, no acute intracranial hemorrhage, mass, or evidence of acute territorial infarct. 2. Moderate chronic small vessel ischemic change and intracranial ather osclerosis is stable. EVIDENCE OF ACUTE STROKE: NO. Forearm X-Ray 01/10/20 00:00 IMPRESSION: Focal soft tissue prominence of the lateral distal forearm without underlying osseous abnormality. Chest X-Ray 01/10/20 08:36 IMPRESSION: Somewhat improved pulmonary examination with persistent cardiomegaly and central vascular congestion. Interval placement of a dialysis catheter. Abdomen CT 01/10/20 09:45 IMPRESSION: No acute intraabdominal findings on noncontrast Small bilateral pleural effusions with bilateral airspace, edema versus pneumonia Hand X-Ray 01/10/20 09:58 IMPRESSION: Mild, diffuse soft tissue edema without underlying osseous injury. Venous Doppler Study 01/15/20 00:00 IMPRESSION: NO EVIDENCE DVT OR SVT IN THE LEFT LEG. Assessment and Plan - Diagnosis (1) Acute metabolic encephalopathy Is this a current diagnosis for this admission?: Yes Plan: Patient appears to be at his baseline which unfortunately is severe receptive and expressive aphasia due to recent stroke. Is awake and alert and does not appear to have any focal neurological symptoms. Taking his p.o. medication and tolerating his food. Initially was refusing medications including dialysis since discharge from hospital 12/20/19 Came in with 1 episode of seizures This is likely because of neurologic changes from recent stroke on top of missed dialysis Continue haldol PRN for agitation Continue ativan PRN for seizures Per speech therapist speech is largely dysfluent with few true words produced. Patient was unable to name pictures, was unable to complete automatic speech sequences, and was unable to imitate words or phonemes. Patient does have some preserved social language with greetings, etc. Plan is possible discharge to rehab. (2) ESRD (end stage renal disease) on dialysis Is this a current diagnosis for this admission?: Yes Plan: Dialysis Saturday. Nephrology on board. Possible dialysis tomorrow. Monitor volume status and electrolytes, replace as needed. (3) Hematemesis Qualifiers: Nausea presence: without nausea Qualified Code(s): K92.0 - Hematemesis Is this a current diagnosis for this admission?: Yes Plan: Resolved. Patient had 2 episodes of hematemesis in the ED, no further episode since then Continue protonix 40 mg IV BID He would likely need EGD if it recurs (4) Left acute arterial ischemic stroke, MCA (middle cerebral artery) Is this a current diagnosis for this admission?: Yes Plan: Patient has severe motor and receptive aphasia. Recent Left MCA infarct Nov 2019 Minimal motor deficit but he has suffered significant expressive aphasia as well as behavioral changes Continue lipitor, carvedilol, asa. (5) Pseudomonas urinary tract infection Is this a current diagnosis for this admission?: Yes Plan: On meropenem. - Time Time Spent with patient: 25-34 minutes Anticipated Discharge Disposition: [facility] Facility Anticipated Discharge Timeframe: when bed available
[2020-01-20] MEDS: ATORVASTATIN CALCIUM 40 MG TABLET PO SCH (21:18)
[2020-01-20] MEDS: MEROPENEM 500 MG in NORMAL SALINE 50 ML IV SCH (21:40)
--- NOTE | 2020-01-20 22:59 | PDOC PROGRESS REPORT ---
Subjective Date:: 01/20/20 Subjective:: I am seeing the patient during dialysis this morning. He is a sleeping comforta radha. He is arousable. He has been calm with dialysis treatment. He remains aphasic and does not verbalize any complaints. Reason For Visit: END STAGE RENAL DISEASE,DIALYSIS Physical Exam Vital Signs: Temp Pulse Resp BP Pulse Ox 97.8 F 81 17 159/76 H 100 01/19/20 23:26 01/19/20 23:26 01/19/20 23:26 01/20/20 00:23 01/19/20 23:26 Intake & Output 01/19/20 01/20/20 01/21/20 06:59 06:59 06:59 Intake Total 638 Output Total 3000 Balance -3000 638 Weight 100.3 kg 100.3 kg Vitals during dialysis: Blood pressure 119/55, heart rate of 69, blood flow rate of 350 mL/min and dialysate flow rate of 800 mL/min. Exam: General appearance: PRESENT: no acute distress, cooperative, well-developed, well-nourished Head exam: PRESENT: atraumatic, normocephalic Eye exam: PRESENT: conjunctiva slightly pale, PERRLA. ABSENT: scleral icterus Neck exam: ABSENT: JVD Respiratory exam: PRESENT: Diminished breath sounds. ABSENT: crackles, rales, rhonchi, unlabored, wheezes Cardiovascular exam: PRESENT: Regular rate rhythm -+S1, +S2. ABSENT: diastolic murmur, systolic murmur GI/Abdominal exam: PRESENT: normal bowel sounds, soft. ABSENT: guarding, mass, tenderness Extremities exam: Trace bilateral lower extremity pitting edema, chronic left l eg lymphedema Neurological exam: PRESENT: Asleep, arousable and aphasic. Skin exam: PRESENT: dry, warm, Cardiovascular exam: PRESENT: +S1, +S2, systolic murmur GI/Abdominal exam: PRESENT: normal bowel sounds, soft. ABSENT: organomegaly, tenderness Results Laboratory Results: 01/20/20 04:55 01/20/20 04:55 01/20/20 01/20/20 04:55 04:55 WBC 7.0 RBC 3.08 L Hgb 9.0 L Hct 27.3 L MCV 89 MCH 29.3 MCHC 33.0 RDW 15.6 H Plt Count 332 Seg Neutrophils % 64.4 Sodium 133.7 L Potassium 4.3 Chloride 96 L Carbon Dioxide 30 Anion Gap 8 BUN 36 H Creatinine 5.78 H Est GFR ( Amer) 12 L Glucose 117 H Calcium 9.0 Impressions: Head CT 01/09/20 15:12 IMPRESSION: 1. No significant interval change. Involving left MCA infarct as expected, no acute intracranial hemorrhage, mass, or evidence of acute territorial infarct. 2. Moderate chronic small vessel ischemic change and intracranial atherosclerosis is stable. EVIDENCE OF ACUTE STROKE: NO. Forearm X-Ray 01/10/20 00:00 IMPRESSION: Focal soft tissue prominence of the lateral distal forearm without underlying osseous abnormality. Chest X-Ray 01/10/20 08:36 IMPRESSION: Somewhat improved pulmonary examination with persistent cardiomegaly and central vascular congestion. Interval placement of a dialysis catheter. Abdomen CT 01/10/20 09:45 IMPRESSION: No acute intraabdominal findings on noncontrast Small bilateral pleural effusions with bilateral airspace, edema versus pneumonia Hand X-Ray 01/10/20 09:58 IMPRESSION: Mild, diffuse soft tissue edema without underlying osseous injury. Venous Doppler Study 01/15/20 00:00 IMPRESSION: NO EVIDENCE DVT OR SVT IN THE LEFT LEG. Assessment & Plan - Diagnosis (1) ESRD (end stage renal disease) on dialysis Is this a current diagnosis for this admission?: Yes Plan: We will do dialysis today for 2.5 hours, using the patient's PermCath, with 2 potassium bath, blood flow rate of 350 mL per minute, dialysate flow rate of 800 mL per minute, ultrafiltration 2 L as tolerated, no heparin and Retacrit with 20,000 units during dialysis intravenously. Patient is being monitored for any agitation during this dialysis. I called and spoke to the patient's daughter, Phuong Silvestre and discussed plan of care last 01/18/2020. She confirmed that the patient will go to rehab after this hospitalization. I also confirmed with her that the family would like to continue hemodialysis and she would asked her mom to sit with the patient during dialysis. I also explained to her that at any event that the patient becomes agitated or started to say no to dialysis that we will not be able to do the treatment as an outpatient at [facility] dialysis unit for the patient's safety and the safety of the staff treating him. There is a risk for the patient to be pulling lines that can cause bleeding and exsanguination if that happens. She understood. So we will give it a try after the patient gets discharged if the patient would cooperate. If patient does not cooperate during outpatient dialysis then we would need to revisit the plan of care again to include possibility of hospice. She understood. I also answered her questions. Patient is being arranged for placement and it seems like he may not be able to be placed here in [place]. If that happens his dialysis treatment needs to be arranged closer to where he will end up to. He will also need an accepting senior engineering team leader at that place. (2) Pseudomonas urinary tract infection Is this a current diagnosis for this admission?: Yes Plan: On meropenem per hospitalist service. 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 (4) Essential hypertension Is this a current diagnosis for this admission?: Yes Plan: Fairly controlled. (5) Expressive aphasia Is this a current diagnosis for this admission?: Yes Plan: Actually seems to be both receptive and expressive aphasia due to recent left MCA stroke. (6) Seizure Is this a current diagnosis for this admission?: Yes Plan: As reported. Currently on Depakote. (7) Anemia in chronic kidney disease (CKD) Is this a current diagnosis for this admission?: Yes Plan: Retacrit during dialysis. 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
[2020-01-21] MEDS: ISOSORBIDE DINITRATE 20 MG TABLET PO SCH ×3 (06:17→21:33)
[2020-01-21] MEDS: HEPARIN SOD (PORCINE) 5,000 UNIT/ML 1 ML VIAL SUBCUT SCH ×3 (06:17→21:34)
[2020-01-21] MEDS: HYDRALAZINE HCL 25 MG TABLET PO SCH ×3 (06:18→21:33)
[2020-01-21] MEDS: CALCIUM ACETATE 667 MG CAPSULE PO SCH ×3 (11:31→17:15)
[2020-01-21] MEDS: INSULIN LISPRO 100 UNIT/ML 3 ML VIAL SUBCUT SCH ×4 (11:31→21:53)
[2020-01-21] MEDS: ASPIRIN 81 MG TABLET, CHEWABLE PO SCH (11:48)
[2020-01-21] MEDS: BUMETANIDE 1 MG TABLET PO SCH ×2 (11:48→17:15)
[2020-01-21] MEDS: CARVEDILOL 12.5 MG TABLET PO SCH ×2 (11:48→21:34)
[2020-01-21] MEDS: VALPROATE SODIUM SYRUP 250 MG/5 ML UDCUP PO SCH ×2 (11:49→21:33)
[2020-01-21] MEDS: CLONIDINE 0.1 MG/24 HR PATCH.TDWK TD SCH (11:49)
[2020-01-21] MEDS: OLANZAPINE 5 MG TAB.RAPDIS PO SCH ×2 (11:51→21:52)
[2020-01-21] MEDS: CALCITRIOL 0.25 MCG CAPSULE PO SCH (11:51)
[2020-01-21] MEDS: VALSARTAN 160 MG TABLET PO SCH ×2 (11:51→21:33)
[2020-01-21] MEDS: ATORVASTATIN CALCIUM 40 MG TABLET PO SCH (21:33)
[2020-01-22] MEDS ORDERED: HEPARIN SOD (PORCINE) 1,000 UNIT/ML 10 ML VIAL IV PRN (05:00)
[2020-01-22] MEDS ORDERED: NORMAL SALINE 1000 ML 1,000 ML IV PRN (05:00)
[2020-01-22] MEDS: HEPARIN SOD (PORCINE) 5,000 UNIT/ML 1 ML VIAL SUBCUT SCH ×3 (06:49→22:49)
[2020-01-22] MEDS: HYDRALAZINE HCL 25 MG TABLET PO SCH (06:49)
[2020-01-22] MEDS: ISOSORBIDE DINITRATE 20 MG TABLET PO SCH (06:50)
[2020-01-22] MEDS ORDERED: EPOETIN ALFA-EPBX 20,000 UNIT in SYRINGE, DISPOSABLE, 1 EACH IV PRN (08:00)
[2020-01-22] MEDS: INSULIN LISPRO 100 UNIT/ML 3 ML VIAL SUBCUT SCH ×4 (08:49→22:16)
[2020-01-22] MEDS: CALCIUM ACETATE 667 MG CAPSULE PO SCH ×3 (08:50→17:25)
[2020-01-22] MEDS ORDERED: ISOSORBIDE MONONITRATE 60 MG TAB.ER.24H PO SCH (10:00)
[2020-01-22] MEDS: ASPIRIN 81 MG TABLET, CHEWABLE PO SCH (12:26)
[2020-01-22] MEDS: BUMETANIDE 1 MG TABLET PO SCH ×2 (12:27→17:25)
[2020-01-22] MEDS: CARVEDILOL 12.5 MG TABLET PO SCH ×2 (12:27→22:53)
[2020-01-22] MEDS: VALSARTAN 160 MG TABLET PO SCH ×2 (12:28→22:54)
[2020-01-22] MEDS: VALPROATE SODIUM SYRUP 250 MG/5 ML UDCUP PO SCH ×2 (12:28→22:53)
[2020-01-22] MEDS: OLANZAPINE 5 MG TAB.RAPDIS PO SCH ×2 (12:29→22:55)
[2020-01-22] MEDS: CALCITRIOL 0.25 MCG CAPSULE PO SCH (12:29)
[2020-01-22] MEDS: ISOSORBIDE MONONITRATE 60 MG TAB.ER.24H PO SCH ×2 (12:29→22:55)
--- NOTE | 2020-01-22 12:46 | PDOC PROGRESS REPORT ---
Subjective Date:: 01/22/20 Subjective:: As per admitting physician OJHNATHON HORVATH JR is a 59 year old male, PMH of ESRD on HD, CHF, HLD, PVD, recent Left MCA stroke, who came in the ED due to altered mental status. He was recently discharged from [facility] for Pulm edema requiring intubation and Left MCA stroke that has left him aphasic. According to his daughter since being discharged home Johnathon has been very difficult to manage at home because of behavioral changes 2/2 to his stroke. He has refused dialysis and has not had one since discharge, he has refused to take any of his medications, has been defecating in the kitchen sink, has tried to drive a car despite being impaired. He was brought to the ED on 01/07/20 where he again refused admission and dialysis and was sent home. He was brought back again on January 08 after an apparent seizure. When he woke up in the ED he became very combative and was given ketamine. He was on social hold in the ED while social worker aide was trying to place him on a rehab. Today, he developed about 2 episodes of hematemesis. Patients vital signs remained stable with no hemoglobin drop. Hospitalist service was asked to admit him. I had a family meeting with the patients , patients daughter terrie Goode from [facility] regarding his current status. Rupa acted as the excavating supervisor for sign language. I discussed with them that the patient has refused dialysis and it is very unlikely that he would agree to this with how he is neurologically. I told them that in order to even administer any oral medications to him let alone dialyze him would necessitate chemically sedating him and also physical restraints. His quality of life will be severely affected and that what we are aiming for is to avoid medical procedures that will just only harm him without having any actual benefit. They are understandably struggling to come up with a decision. Hospice was also discussed with them but they have not made a medical decision about this as well. 01/16/2020. No acute events overnight. Patient has been sleeping overnight, but this afternoon he is awake and alert, sitting in recliner, in no apparent distress, unfortunately patient has severe receptive and expressive aphasia, not appear to be in any apparent distress. 01/17/2020. No acute events overnight. Patient has been more compliant with his medication and p.o. intake, is still having significant receptive and expressive aphasia,. He in apparent distress. 01/18/2020. Saw patient while receiving hemodialysis, and no apparent distress, patient has been calm and cooperative for the last couple of days, unfortunately this morning after receiving hemodialysis patient became agitated again and was trying to leave the hospital, refusing to take his p.o. medication, was given 1 dose of IM Haldol with moderate improvement, otherwise no acute events. 01/19/2020. No acute events overnight. Patient has been cooperative with medication intake and has not been agitated since yesterday, has not received any IM Haldol since stated. There is very mild improvement of his aphasia, pe nding transfer to rehab. 01/20/2020. No acute events overnight. Patient has not been agitated for the last 48 hours, has been taking his medication has been cooperative with physical examination, there is very mild improvement of his aphasia, ambulatory and having normal bowel bladder movement, p.o. tolerant. Pending transfer. 01/22/2020. No acute events overnight. Saw patient while receiving speech therapy, does not appear to be in apparent distress, cooperative with physical examination, still significant aphasia however seem to be improving somewhat. Patient has refused his vitals however he has been taking his medication. Pending transfer to rehab. Reason For Visit: END STAGE RENAL DISEASE,DIALYSIS Physical Exam Vital Signs: Temp Pulse Resp BP Pulse Ox 97.4 F 70 16 130/77 H 99 01/22/20 10:58 01/22/20 10:58 01/22/20 10:58 01/22/20 10:58 01/22/20 10:58 Intake & Output 01/21/20 01/22/20 01/23/20 06:59 06:59 06:59 Intake Total 236 720 240 Output Total 2100 Balance -1864 720 240 Weight 94.9 kg 96.9 kg General appearance: PRESENT: no acute distress, well-developed, well-nourished Head exam: PRESENT: atraumatic, normocephalic Respiratory exam: PRESENT: clear to auscultation liseth. ABSENT: rales, rhonchi, wheezes Cardiovascular exam: PRESENT: RRR. ABSENT: diastolic murmur, rubs, systolic murmur GI/Abdominal exam: PRESENT: normal bowel sounds, soft. ABSENT: distended, guarding, mass, organolmegaly, rebound, tenderness Neurological exam: PRESENT: alert, awake, CN II-XII grossly intact, aphasic. ABSENT: motor sensory deficit Results Laboratory Results: 01/20/20 04:55 01/20/20 04:55 Impressions: Head CT 01/09/20 15:12 IMPRESSION: 1. No significant interval change. Involving left MCA infarct as expected, no acute intracranial hemorrhage, mass, or evidence of acute territorial infarct. 2. Moderate chronic small vessel ischemic change and intracranial atherosclerosis is stable. EVIDENCE OF ACUTE STROKE: NO. Forearm X-Ray 01/10/20 00:00 IMPRESSION: Focal soft tissue prominence of the lateral distal forearm without underlying osseous abnormality. Chest X-Ray 01/10/20 08:36 IMPRESSION: Somewhat improved pulmonary examination with persistent cardiomega ly and central vascular congestion. Interval placement of a dialysis catheter. Abdomen CT 01/10/20 09:45 IMPRESSION: No acute intraabdominal findings on noncontrast Small bilateral pleural effusions with bilateral airspace, edema versus pneumonia Hand X-Ray 01/10/20 09:58 IMPRESSION: Mild, diffuse soft tissue edema without underlying osseous injury. Venous Doppler Study 01/15/20 00:00 IMPRESSION: NO EVIDENCE DVT OR SVT IN THE LEFT LEG. Assessment and Plan - Diagnosis (1) Acute metabolic encephalopathy Is this a current diagnosis for this admission?: Yes Plan: Patient appears to be at his baseline which unfortunately is severe receptive and expressive aphasia due to recent stroke. Is awake and alert and does not appear to have any focal neurological symptoms. Taking his p.o. medication and tolerating his food. Initially was refusing medications including dialysis since discharge from hospital 12/20/19 Came in with 1 episode of seizures This is likely because of neurologic changes from recent stroke on top of missed dialysis Continue haldol PRN for agitation Continue ativan PRN for seizures Per speech therapist speech is largely dysfluent with few true words produced. Patient was unable to name pictures, was unable to complete automatic speech sequences, and was unable to imitate words or phonemes. Patient does have some preserved social language with greetings, etc. Plan is possible discharge to rehab. (2) ESRD (end stage renal disease) on dialysis Is this a current diagnosis for this admission?: Yes Plan: Dialysis Saturday. Nephrology on board. Possible dialysis tomorrow. Monitor volume status and electrolytes, replace as needed. (3) Hematemesis Qualifiers: Nausea presence: without nausea Qualified Code(s): K92.0 - Hematemesis Is this a current diagnosis for this admission?: Yes Plan: Resolved. Patient had 2 episodes of hematemesis in the ED, no further episode since then Continue protonix 40 mg IV BID He would likely need EGD if it recurs (4) Left acute arterial ischemic stroke, MCA (middle cerebral artery) Is this a current diagnosis for this admission?: Yes Plan: Patient has severe motor and receptive aphasia. Recent Left MCA infarct Nov 2019 Minimal motor deficit but he has suffered significant expressive aphasia as well as behavioral changes Continue lipitor, carvedilol, asa. (5) Pseudomonas urinary tract infection Is this a current diagnosis for this admission?: Yes Plan: Received a complete course of IV meropenem. - Time Time Spent with patient: 25-34 minutes Medications reviewed and adjusted accordingly: Yes Anticipated Discharge Disposition: [facility] Facility Anticipated Discharge Timeframe: when bed available
--- NOTE | 2020-01-22 14:36 | PDOC PROGRESS REPORT ---
Subjective Date:: 01/22/20 Subjective:: I am seeing the patient during dialysis this afternoon. He is awake and trying to answer questions although he is a still obviously aphasic and has the same answer for different questions. He refused blood draw this morning so we do not have a recent lab. So far he is calm, cooperative and tolerating dialysis. Reason For Visit: END STAGE RENAL DISEASE,DIALYSIS Physical Exam Vital Signs: Temp Pulse Resp BP Pulse Ox 97.4 F 70 16 130/77 H 99 01/22/20 10:58 01/22/20 10:58 01/22/20 10:58 01/22/20 10:58 01/22/20 10:58 Intake & Output 01/21/20 01/22/20 01/23/20 06:59 06:59 06:59 Intake Total 236 720 240 Output Total 2100 Balance -1864 720 240 Weight 94.9 kg 96.9 kg Vitals during dialysis: Blood pressure 194/102, heart rate of 64, blood flow rate of 350 mL/min and dialysate flow rate of 800 mL/min. Exam: General appearance: PRESENT: no acute distress, cooperative, well-developed, well-nourished Head exam: PRESENT: atraumatic, normocephalic Eye exam: PRESENT: conjunctiva slightly pale, PERRLA. ABSENT: scleral icterus Neck exam: ABSENT: JVD Respiratory exam: PRESENT: Diminished breath sounds. ABSENT: crackles, rales, rhonchi, unlabored, wheezes Cardiovascular exam: PRESENT: Regular rate rhythm -+S1, +S2. ABSENT: diastolic murmur, systolic murmur GI/Abdominal exam: PRESENT: normal bowel sounds, soft. ABSENT: guarding, mass, tenderness Extremities exam: Much improved trace bilateral lower extremity edema, left leg with chronic skin changes due to lymphedema Neurological exam: PRESENT: alert, awake, aphasic. Skin exam: PRESENT: dry, warm, Cardiovascular exam: PRESENT: +S1, +S2, systolic murmur GI/Abdominal exam: PRESENT: normal bowel sounds, soft. ABSENT: organomegaly, tenderness Results Laboratory Results: 01/20/20 04:55 01/20/20 04:55 Impressions: Head CT 01/09/20 15:12 IMPRESSION: 1. No significant interval change. Involving left MCA infarct as expected, no acute intracranial hemorrhage, mass, or evidence of acute territorial infarct. 2. Moderate chronic small vessel ischemic change and intracranial atherosclerosis is stable. EVIDENCE OF ACUTE STROKE: NO. Forearm X-Ray 01/10/20 00:00 IMPRESSION: Focal soft tissue prominence of the lateral distal forearm without underlying osseous abnormality. Chest X-Ray 01/10/20 08:36 IMPRESSION: Somewhat improved pulmonary examination with persistent cardiomegaly and central vascular congestion. Interval placement of a dialysis catheter. Abdomen CT 01/10/20 09:45 IMPRESSION: No acute intraabdominal findings on noncontrast Small bilateral pleural effusions with bilateral airspace, edema versus pneumonia Hand X-Ray 01/10/20 09:58 IMPRESSION: Mild, diffuse soft tissue edema without underlying osseous injury. Venous Doppler Study 01/15/20 00:00 IMPRESSION: NO EVIDENCE DVT OR SVT IN THE LEFT LEG. Assessment & Plan - Diagnosis (1) ESRD (end stage renal disease) on dialysis Is this a current diagnosis for this admission?: Yes Plan: We will do dialysis today for 3 hours, using the patient's PermCath, with 2 potassium bath, blood flow rate of 350 mL per minute, dialysate flow rate of 800 mL per minute, ultrafiltration 1.5-2 L as tolerated, no heparin and Retacrit with 20,000 units during dialysis intravenously. Patient is being monitored for any agitation during this dialysis. I called and spoke to the patient's daughter, Phuong Silvestre and discussed plan of care last 01/18/2020. She confirmed that the patient will go to rehab after this hospitalization. I also confirmed with her that the family would like to continue hemodialysis and she would asked her mom to sit with the patient during dialysis. I also explained to her that at any event that the patient becomes agitated or started to say no to dialysis that we will not be able to do the treatment as an outpatient at [facility] dialysis unit for the patient's safety and the safety of the staff treating him. There is a risk for the patient to be pulling lines that can cause bleeding and exsanguination if that happens. She understood. So we will give it a try after the patient gets discharged if the patient would cooperate. If patient does not cooperate during outpatient dialysis then we would need to revisit the plan of care again to include possibility of hospice. She understood. I also answered her questions. Patient is being arranged for placement and it seems like he may not be able to be placed here in [place]. If that happens his dialysis treatment needs to be arranged closer to where he will end up to. He will also need an accepting placement officer at that place. I discussed this Dr. Mott today. (2) Pseudomonas urinary tract infection Is this a current diagnosis for this admission?: Yes Plan: Treated with meropenem. 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 (4) Essential hypertension Is this a current diagnosis for this admission?: Yes Plan: Elevated currently on dialysis but usually fairly controlled. (5) Expressive aphasia Is this a current diagnosis for this admission?: Yes Plan: Actually seems to be both receptive and expressive aphasia due to recent left MCA stroke. (6) Seizure Is this a current diagnosis for this admission?: Yes Plan: As reported. Currently on Depakote. (7) Anemia in chronic kidney disease (CKD) Is this a current diagnosis for this admission?: Yes Plan: Retacrit during dialysis. (8) Left acute arterial ischemic stroke, MCA (middle cerebral artery) Is this a current diagnosis for this admission?: Yes (9) Type 2 diabetes mellitus Qualifiers: Diabetes mellitus fpc insulin use: without lobsterman use Diabetes mellitus complication status: with kidney complications Diabetes mellitus complication detail: with chronic kidney disease Chronic kidney disease stage: on chronic dialysis Qualified Code(s): E11.22 - Type 2 diabetes mellitus with diabetic chronic kidney disease; N18.6 - End stage renal disease; Z99.2 - Dependence on renal dialysis Is this a current diagnosis for this admission?: Yes - Notes Notes: From nephrology standpoint patient can be transferred to residential facility once arranged as long as outpatient dialysis is also arrange if the patient is not going to be here around [place].
[2020-01-22] MEDS: ATORVASTATIN CALCIUM 40 MG TABLET PO SCH (22:52)
[2020-01-23] MEDS: HEPARIN SOD (PORCINE) 5,000 UNIT/ML 1 ML VIAL SUBCUT SCH ×3 (06:32→23:24)
[2020-01-23] MEDS: CARVEDILOL 12.5 MG TABLET PO SCH ×2 (12:00→23:24)
[2020-01-23] MEDS: CALCIUM ACETATE 667 MG CAPSULE PO SCH ×3 (12:00→17:40)
[2020-01-23] MEDS: VALSARTAN 160 MG TABLET PO SCH ×2 (12:00→23:24)
[2020-01-23] MEDS: INSULIN LISPRO 100 UNIT/ML 3 ML VIAL SUBCUT SCH ×5 (12:00→23:25)
[2020-01-23] MEDS: BUMETANIDE 1 MG TABLET PO SCH ×2 (12:00→17:40)
[2020-01-23] MEDS: ASPIRIN 81 MG TABLET, CHEWABLE PO SCH (12:01)
[2020-01-23] MEDS: CALCITRIOL 0.25 MCG CAPSULE PO SCH (12:01)
[2020-01-23] MEDS: ISOSORBIDE MONONITRATE 60 MG TAB.ER.24H PO SCH ×2 (12:03→23:25)
[2020-01-23] MEDS: VALPROATE SODIUM SYRUP 250 MG/5 ML UDCUP PO SCH ×2 (12:03→23:23)
[2020-01-23] MEDS: OLANZAPINE 5 MG TAB.RAPDIS PO SCH ×2 (12:04→23:24)
--- NOTE | 2020-01-23 12:22 | PDOC PROGRESS REPORT ---
Subjective Date:: 01/23/20 Subjective:: As per admitting physician JOHNATHON HORVATH JR is a 59 year old male, PMH of ESRD on HD, CHF, HLD, PVD, recent Left MCA stroke, who came in the ED due to altered mental status. He was recently discharged from [facility] for Pulm edema requiring intubation and Left MCA stroke that has left him aphasic. According to his daughter since being discharged home Johnathon has been very difficult to manage at home because of behavioral changes 2/2 to his stroke. He has refused dialysis and has not had one since discharge, he has refused to take any of his medications, has been defecating in the kitchen sink, has tried to drive a car despite being impaired. He was brought to the ED on 01/07/20 where he again refused admission and dialysis and was sent home. He was brought back again on January 08 after an apparent seizure. When he woke up in the ED he became very combative and was given ketamine. He was on social hold in the ED while social security specialist was trying to place him on a rehab. Today, he developed about 2 episodes of hematemesis. Patients vital signs remained stable with no hemoglobin drop. Hospitalist service was asked to admit him. I had a family meeting with the patients , patients daughter terrie Goode from [facility] regarding his current status. Rupa acted as the site interpreter for sign language. I discussed with them that the patient has refused dialysis and it is very unlikely that he would agree to this with how he is neurologically. I told them that in order to even administer any oral medications to him let alone dialyze him would necessitate chemically sedating him and also physical restraints. His quality of life will be severely affected and that what we are aiming for is to avoid medical procedures that will just only harm him without having any actual benefit. They are understandably struggling to come up with a decision. Hospice was also discussed with them but they have not made a medical decision about this as well. 01/16/2020. No acute events overnight. Patient has been sleeping overnight, but this afternoon he is awake and alert, sitting in recliner, in no apparent distress, unfortunately patient has severe receptive and expressive aphasia, not appear to be in any apparent distress. 01/17/2020. No acute events overnight. Patient has been more compliant with his medication and p.o. intake, is still having significant receptive and expressive aphasia,. He in apparent distress. 01/18/2020. Saw patient while receiving hemodialysis, and no apparent distress, patient has been calm and cooperative for the last couple of days, unfortunately this morning after receiving hemodialysis patient became agitated again and was trying to leave the hospital, refusing to take his p.o. medication, was given 1 dose of IM Haldol with moderate improvement, otherwise no acute events. 01/19/2020. No acute events overnight. Patient has been cooperative with medication intake and has not been agitated since yesterday, has not received any IM Haldol since stated. There is very mild improvement of his aphasia, pe nding transfer to rehab. 01/20/2020. No acute events overnight. Patient has not been agitated for the last 48 hours, has been taking his medication has been cooperative with physical examination, there is very mild improvement of his aphasia, ambulatory and having normal bowel bladder movement, p.o. tolerant. Pending transfer. 01/22/2020. No acute events overnight. Saw patient while receiving speech therapy, does not appear to be in apparent distress, cooperative with physical examination, still significant aphasia however seem to be improving somewhat. Patient has refused his vitals however he has been taking his medication. Pending transfer to rehab. 01/23/2020. No acute events overnight. Patient has refused his blood draws, taking his medication, does not appear to be in any apparent distress, there is mild improvement of aphasia, ambulatory, having normal bowel and bladder movements. Reason For Visit: END STAGE RENAL DISEASE,DIALYSIS Physical Exam Vital Signs: Temp Pulse Resp BP Pulse Ox 97.3 F 69 18 147/59 H 100 01/23/20 07:41 01/23/20 07:41 01/23/20 07:41 01/23/20 07:41 01/23/20 07:41 Intake & Output 01/22/20 01/23/20 01/24/20 06:59 06:59 06:59 Intake Total 720 960 Output Total 1000 Balance 720 -40 Weight 96.9 kg 82.6 kg 82.6 kg General appearance: PRESENT: no acute distress, well-developed, well-nourished Head exam: PRESENT: atraumatic, normocephalic Respiratory exam: PRESENT: clear to auscultation liseth. ABSENT: rales, rhonchi, wheezes Cardiovascular exam: PRESENT: RRR. ABSENT: diastolic murmur, rubs, systolic murmur GI/Abdominal exam: PRESENT: normal bowel sounds, soft. ABSENT: distended, guarding, mass, organolmegaly, rebound, tenderness Extremities exam: PRESENT: other - Bilateral lower extremity venous stasis. Neurological exam: PRESENT: alert, awake, CN II-XII grossly intact, aphasic Results Laboratory Results: 01/20/20 04:55 01/20/20 04:55 Impressions: Head CT 01/09/20 15:12 IMPRESSION: 1. No significant interval change. Involving left MCA infarct as expected, no acute intracranial hemorrhage, mass, or evidence of acute territorial infarct. 2. Moderate chronic small vessel ischemic change and intracranial atherosclerosis is stable. EVIDENCE OF ACUTE STROKE: NO. Forearm X-Ray 01/10/20 00:00 IMPRESSION: Focal soft tissue prominence of the lateral distal forearm without underlying osseous abnormality. Chest X-Ray 01/10/20 08:36 IMPRESSION: Somewhat improved pulmonary examination with persistent cardiomegaly and central vascular congestion. Interval placement of a dialysis catheter. Abdomen CT 01/10/20 09:45 IMPRESSION: No acute intraabdominal findings on noncontrast Small bilateral pleural effusions with bilateral airspace, edema versus pneumonia Hand X-Ray 01/10/20 09:58 IMPRESSION: Mild, diffuse soft tissue edema without underlying osseous injury. Venous Doppler Study 01/15/20 00:00 IMPRESSION: NO EVIDENCE DVT OR SVT IN THE LEFT LEG. Assessment and Plan - Diagnosis (1) Acute metabolic encephalopathy Is this a current diagnosis for this admission?: Yes Plan: Patient appears to be at his baseline which unfortunately is severe receptive and expressive aphasia due to recent stroke. Is awake and alert and does not appear to have any focal neurological symptoms. Taking his p.o. medication and tolerating his food. Initially was refusing medications including dialysis since discharge from hospital 12/20/19 Came in with 1 episode of seizures This is likely because of neurologic changes from recent stroke on top of missed dialysis Continue haldol PRN for agitation Continue ativan PRN for seizures Per speech therapist speech is largely dysfluent with few true words produced. Patient was unable to name pictures, was unable to complete automatic speech sequences, and was unable to imitate words or phonemes. Patient does have some preserved social language with greetings, etc. Plan is possible discharge to rehab. (2) ESRD (end stage renal disease) on dialysis Is this a current diagnosis for this admission?: Yes Plan: Dialysis Saturday. Nephrology on board. Possible dialysis tomorrow. Monitor volume status and electrolytes, replace as needed. (3) Hematemesis Qualifiers: Nausea presence: without nausea Qualified Code(s): K92.0 - Hematemesis Is this a current diagnosis for this admission?: Yes Plan: Resolved. Patient had 2 episodes of hematemesis in the ED, no further episode since then Continue protonix 40 mg IV BID He would likely need EGD if it recurs (4) Left acute arterial ischemic stroke, MCA (middle cerebral artery) Is this a current diagnosis for this admission?: Yes Plan: Patient has severe motor and receptive aphasia. Recent Left MCA infarct Nov 2019 Minimal motor deficit but he has suffered significant expressive aphasia as well as behavioral changes Continue lipitor, carvedilol, asa. (5) Pseudomonas urinary tract infection Is this a current diagnosis for this admission?: Yes Plan: Received a complete course of IV meropenem. (6) Hypertension Qualifiers: Hypertension type: essential hypertension Qualified Code(s): I10 - Essential (primary) hypertension Is this a current diagnosis for this admission?: Yes Plan: Euvolemic. Normotensive. Continue current meds. Adjust meds as needed. - Time Time Spent with patient: 25-34 minutes Anticipated Discharge [facility]position[facility] Anticipated Discharge Timeframe: when bed available
[2020-01-23] MEDS: ATORVASTATIN CALCIUM 40 MG TABLET PO SCH (23:24)
[2020-01-24] MEDS: HEPARIN SOD (PORCINE) 5,000 UNIT/ML 1 ML VIAL SUBCUT SCH ×3 (05:43→22:33)
[2020-01-24] MEDS: INSULIN LISPRO 100 UNIT/ML 3 ML VIAL SUBCUT SCH ×4 (10:32→22:28)
[2020-01-24] MEDS: CARVEDILOL 12.5 MG TABLET PO SCH ×2 (10:36→22:27)
[2020-01-24] MEDS: ASPIRIN 81 MG TABLET, CHEWABLE PO SCH (10:36)
[2020-01-24] MEDS: CALCIUM ACETATE 667 MG CAPSULE PO SCH ×3 (10:36→17:14)
[2020-01-24] MEDS: BUMETANIDE 1 MG TABLET PO SCH ×2 (10:37→17:14)
[2020-01-24] MEDS: OLANZAPINE 5 MG TAB.RAPDIS PO SCH ×2 (10:38→22:27)
[2020-01-24] MEDS: CALCITRIOL 0.25 MCG CAPSULE PO SCH (10:39)
[2020-01-24] MEDS: VALSARTAN 160 MG TABLET PO SCH ×2 (10:39→22:27)
[2020-01-24] MEDS: ERGOCALCIFEROL (VITAMIN D2) 50000 UNIT (1.25 MG) CAPSULE PO SCH (10:39)
[2020-01-24] MEDS: ISOSORBIDE MONONITRATE 60 MG TAB.ER.24H PO SCH ×2 (10:39→22:27)
--- NOTE | 2020-01-24 10:41 | PDOC PROGRESS REPORT ---
Subjective Date:: 01/24/20 Subjective:: As per admitting physician JOHNATHON HORVATH JR is a 59 year old male, PMH of ESRD on HD, CHF, HLD, PVD, recent Left MCA stroke, who came in the ED due to altered mental status. He was recently discharged from [facility] for Pulm edema requiring intubation and Left MCA stroke that has left him aphasic. According to his daughter since being discharged home Johnathon has been very difficult to manage at home because of behavioral changes 2/2 to his stroke. He has refused dialysis and has not had one since discharge, he has refused to take any of his medications, has been defecating in the kitchen sink, has tried to drive a car despite being impaired. He was brought to the ED on 01/07/20 where he again refused admission and dialysis and was sent home. He was brought back again on January 08 after an apparent seizure. When he woke up in the ED he became very combative and was given ketamine. He was on social hold in the ED while social media assistant was trying to place him on a rehab. Today, he developed about 2 episodes of hematemesis. Patients vital signs remained stable with no hemoglobin drop. Hospitalist service was asked to admit him. I had a family meeting with the patients , patients daughter terrie Goode from [facility] regarding his current status. Rupa acted as the medical interpreter for sign language. I discussed with them that the patient has refused dialysis and it is very unlikely that he would agree to this with how he is neurologically. I told them that in order to even administer any oral medications to him let alone dialyze him would necessitate chemically sedating him and also physical restraints. His quality of life will be severely affected and that what we are aiming for is to avoid medical procedures that will just only harm him without having any actual benefit. They are understandably struggling to come up with a decision. Hospice was also discussed with them but they have not made a medical decision about this as well. 01/16/2020. No acute events overnight. Patient has been sleeping overnight, but this afternoon he is awake and alert, sitting in recliner, in no apparent distress, unfortunately patient has severe receptive and expressive aphasia, not appear to be in any apparent distress. 01/17/2020. No acute events overnight. Patient has been more compliant with his medication and p.o. intake, is still having significant receptive and expressive aphasia,. He in apparent distress. 01/18/2020. Saw patient while receiving hemodialysis, and no apparent distress, patient has been calm and cooperative for the last couple of days, unfortunately this morning after receiving hemodialysis patient became agitated again and was trying to leave the hospital, refusing to take his p.o. medication, was given 1 dose of IM Haldol with moderate improvement, otherwise no acute events. 01/19/2020. No acute events overnight. Patient has been cooperative with medication intake and has not been agitated since yesterday, has not received any IM Haldol since stated. There is very mild improvement of his aphasia, pe nding transfer to rehab. 01/20/2020. No acute events overnight. Patient has not been agitated for the last 48 hours, has been taking his medication has been cooperative with physical examination, there is very mild improvement of his aphasia, ambulatory and having normal bowel bladder movement, p.o. tolerant. Pending transfer. 01/22/2020. No acute events overnight. Saw patient while receiving speech therapy, does not appear to be in apparent distress, cooperative with physical examination, still significant aphasia however seem to be improving somewhat. Patient has refused his vitals however he has been taking his medication. Pending transfer to rehab. 01/23/2020. No acute events overnight. Patient has refused his blood draws, taking his medication, does not appear to be in any apparent distress, there is mild improvement of aphasia, ambulatory, having normal bowel and bladder movements. 01/24/2020. No acute events overnight. Saw patient this morning comfortably sitting at the edge of his bed, still has significant aphasia but seems to be improving, patient is cooperative with physical examination, as per primary nurse he is taking his medication however he was noted to be getting into the elevator, patient has been refusing blood draws, patient is scheduled for he modialysis tomorrow, will try to get the blood draw tomorrow. Patient is pending transfer to rehab. Reason For Visit: END STAGE RENAL DISEASE,DIALYSIS Physical Exam Vital Signs: Temp Pulse Resp BP Pulse Ox 97.9 F 65 16 152/75 H 99 01/24/20 10:00 01/24/20 08:12 01/24/20 08:12 01/24/20 08:12 01/24/20 08:12 Intake & Output 01/23/20 01/24/20 01/25/20 06:59 06:59 06:59 Intake Total 960 800 Output Total 1000 Balance -40 800 Weight 82.6 kg 82.6 kg General appearance: PRESENT: no acute distress, well-developed, well-nourished Head exam: PRESENT: atraumatic, normocephalic Neck exam: ABSENT: carotid bruit, JVD, lymphadenopathy, thyromegaly Respiratory exam: PRESENT: clear to auscultation liseth. ABSENT: rales, rhonchi, wheezes GI/Abdominal exam: PRESENT: normal bowel sounds, soft. ABSENT: distended, guarding, mass, organolmegaly, rebound, tenderness Musculoskeletal exam: PRESENT: other - Bilateral lower extremity stasis dermatitis worse on the left side. Neurological exam: PRESENT: alert, awake, CN II-XII grossly intact, aphasic. ABSENT: motor sensory deficit Results Laboratory Results: 01/20/20 04:55 01/20/20 04:55 Impressions: Head CT 01/09/20 15:12 IMPRESSION: 1. No significant interval change. Involving left MCA infarct as expected, no acute intracranial hemorrhage, mass, or evidence of acute territorial infarct. 2. Moderate chronic small vessel ischemic change and intracranial atherosclerosis is stable. EVIDENCE OF ACUTE STROKE: NO. Forearm X-Ray 01/10/20 00:00 IMPRESSION: Focal soft tissue prominence of the lateral distal forearm without underlying osseous abnormality. Chest X-Ray 01/10/20 08:36 IMPRESSION: Somewhat improved pulmonary examination with persistent cardiomegaly and central vascular congestion. Interval placement of a dialysis catheter. Abdomen CT 01/10/20 09:45 IMPRESSION: No acute intraabdominal findings on noncontrast Small bilateral pleural effusions with bilateral airspace, edema versus pneumonia Hand X-Ray 01/10/20 09:58 IMPRESSION: Mild, diffuse soft tissue edema without underlying osseous injury. Venous Doppler Study 01/15/20 00:00 IMPRESSION: NO EVIDENCE DVT OR SVT IN THE LEFT LEG. Assessment and Plan - Diagnosis (1) Acute metabolic encephalopathy Is this a current diagnosis for this admission?: Yes Plan: Patient appears to be at his baseline which unfortunately is severe receptive and expressive aphasia due to recent stroke. Is awake and alert and does not appear to have any focal neurological symptoms. Taking his p.o. medication and tolerating his food. Initially was refusing medications including dialysis since discharge from hospital 12/20/19 Came in with 1 episode of seizures This is likely because of neurologic changes from recent stroke on top of missed dialysis Continue haldol PRN for agitation Continue ativan PRN for seizures Per speech therapist speech is largely dysfluent with few true words produced. Patient was unable to name pictures, was unable to complete automatic speech sequences, and was unable to imitate words or phonemes. Patient does have some preserved social language with greetings, etc. Plan is possible discharge to rehab. (2) ESRD (end stage renal disease) on dialysis Is this a current diagnosis for this admission?: Yes Plan: Dialysis Saturday. Nephrology on board. Possible dialysis tomorrow. Monitor volume status and electrolytes, replace as needed. (3) Hematemesis Qualifiers: Nausea presence: without nausea Qualified Code(s): K92.0 - Hematemesis Is this a current diagnosis for this admission?: Yes Plan: Resolved. Patient had 2 episodes of hematemesis in the ED, no further episode since then Continue protonix 40 mg IV BID He would likely need EGD if it recurs (4) Left acute arterial ischemic stroke, MCA (middle cerebral artery) Is this a current diagnosis for this admission?: Yes Plan: Patient has severe motor and receptive aphasia. Recent Left MCA infarct Nov 2019 Minimal motor deficit but he has suffered significant expressive aphasia as well as behavioral changes Continue lipitor, carvedilol, asa. (5) Pseudomonas urinary tract infection Is this a current diagnosis for this admission?: Yes Plan: Received a complete course of IV meropenem. (6) Hypertension Qualifiers: Hypertension type: essential hypertension Qualified Code(s): I10 - Essential (primary) hypertension Is this a current diagnosis for this admission?: Yes Plan: Euvolemic. Normotensive. Continue current meds. Adjust meds as needed. - Time Time Spent with patient: 25-34 minutes Anticipated Discharge Disposition: Assisted Living with Home Health Services Anticipated Discharge Timeframe: when bed available
[2020-01-24] MEDS: VALPROATE SODIUM SYRUP 250 MG/5 ML UDCUP PO SCH ×2 (10:46→22:26)
[2020-01-24] MEDS ORDERED: EPOETIN ALFA-EPBX 20,000 UNIT in SYRINGE, DISPOSABLE, 1 EACH IV PRN (21:57)
[2020-01-24] MEDS: ATORVASTATIN CALCIUM 40 MG TABLET PO SCH (22:27)
[2020-01-25] MEDS ORDERED: NORMAL SALINE 1000 ML 1,000 ML IV PRN (05:00)
[2020-01-25] MEDS ORDERED: HEPARIN SOD (PORCINE) 1,000 UNIT/ML 10 ML VIAL IV PRN (05:00)
[2020-01-25] MEDS: HEPARIN SOD (PORCINE) 5,000 UNIT/ML 1 ML VIAL SUBCUT SCH ×3 (06:02→23:25)
[2020-01-25 06:36] LABS: HEMATOCRIT 28.6 % (37.9-51.0); HEMOGLOBIN 9.4 g/dL (13.5-17.0); MEAN CORPUSCULAR HEMOGLOBIN 29.7 pg (27.0-33.4); MEAN CORPUSCULAR HGB CONC 32.8 g/dL (32.0-36.0); MEAN CORPUSCULAR VOLUME 91 fl (80-97); PLATELET COUNT 284 10^3/uL (150-450); RED BLOOD COUNT 3.15 10^6/uL (4.35-5.55); RED CELL DISTRIBUTION WIDTH 19.3 % (11.5-14.0); WHITE BLOOD COUNT 4.8 10^3/uL (4.0-10.5)
[2020-01-25 07:08] LABS: ALBUMIN 2.8 g/dL (3.5-5.0); ALKALINE PHOSPHATASE 104 U/L (38-126); ANION GAP 10 (5-19); ASPARTATE AMINO TRANSFERASE 21 U/L (17-59); BILIRUBIN,DIRECT 0.2 mg/dL (0.0-0.4); BILIRUBIN,TOTAL 0.4 mg/dL (0.2-1.3); BLOOD UREA NITROGEN 38 mg/dL (7-20); CALCIUM 8.4 mg/dL (8.4-10.2); CARBON DIOXIDE 28 mmol/L (22-30); CHLORIDE 98 mmol/L (98-107); GLUCOSE 111 mg/dL (75-110); POTASSIUM 4.4 mmol/L (3.6-5.0); TOTAL PROTEIN 5.7 g/dL (6.3-8.2)
[2020-01-25] MEDS: INSULIN LISPRO 100 UNIT/ML 3 ML VIAL SUBCUT SCH ×4 (07:44→23:27)
[2020-01-25] MEDS: CALCIUM ACETATE 667 MG CAPSULE PO SCH ×3 (07:44→18:22)
[2020-01-25] MEDS: BUMETANIDE 1 MG TABLET PO SCH ×2 (10:59→18:22)
[2020-01-25] MEDS: CALCITRIOL 0.25 MCG CAPSULE PO SCH (11:00)
[2020-01-25] MEDS: OLANZAPINE 5 MG TAB.RAPDIS PO SCH ×2 (11:00→23:26)
[2020-01-25] MEDS: VALPROATE SODIUM SYRUP 250 MG/5 ML UDCUP PO SCH ×2 (11:00→23:26)
[2020-01-25] MEDS: ASPIRIN 81 MG TABLET, CHEWABLE PO SCH (11:00)
--- NOTE | 2020-01-25 13:07 | PDOC PROGRESS REPORT ---
Subjective Date:: 01/25/20 Subjective:: As per admitting physician JOHNATHON HORVATH JR is a 59 year old male, PMH of ESRD on HD, CHF, HLD, PVD, recent Left MCA stroke, who came in the ED due to altered mental status. He was recently discharged from [facility] for Pulm edema requiring intubation and Left MCA stroke that has left him aphasic. According to his daughter since being discharged home Johnathon has been very difficult to manage at home because of behavioral changes 2/2 to his stroke. He has refused dialysis and has not had one since discharge, he has refused to take any of his medications, has been defecating in the kitchen sink, has tried to drive a car despite being impaired. He was brought to the ED on 01/07/20 where he again refused admission and dialysis and was sent home. He was brought back again on January 08 after an apparent seizure. When he woke up in the ED he became very combative and was given ketamine. He was on social hold in the ED while social worker aide was trying to place him on a rehab. Today, he developed about 2 episodes of hematemesis. Patients vital signs remained stable with no hemoglobin drop. Hospitalist service was asked to admit him. I had a family meeting with the patients , patients daughter terrie Goode from [facility] regarding his current status. Rupa acted as the actuarial trainee for sign language. I discussed with them that the patient has refused dialysis and it is very unlikely that he would agree to this with how he is neurologically. I told them that in order to even administer any oral medications to him let alone dialyze him would necessitate chemically sedating him and also physical restraints. His quality of life will be severely affected and that what we are aiming for is to avoid medical procedures that will just only harm him without having any actual benefit. They are understandably struggling to come up with a decision. Hospice was also discussed with them but they have not made a medical decision about this as well. 01/16/2020. No acute events overnight. Patient has been sleeping overnight, but this afternoon he is awake and alert, sitting in recliner, in no apparent distress, unfortunately patient has severe receptive and expressive aphasia, not appear to be in any apparent distress. 01/17/2020. No acute events overnight. Patient has been more compliant with his medication and p.o. intake, is still having significant receptive and expressive aphasia,. He in apparent distress. 01/18/2020. Saw patient while receiving hemodialysis, and no apparent distress, patient has been calm and cooperative for the last couple of days, unfortunately this morning after receiving hemodialysis patient became agitated again and was trying to leave the hospital, refusing to take his p.o. medication, was given 1 dose of IM Haldol with moderate improvement, otherwise no acute events. 01/19/2020. No acute events overnight. Patient has been cooperative with medication intake and has not been agitated since yesterday, has not received any IM Haldol since stated. There is very mild improvement of his aphasia, pe nding transfer to rehab. 01/20/2020. No acute events overnight. Patient has not been agitated for the last 48 hours, has been taking his medication has been cooperative with physical examination, there is very mild improvement of his aphasia, ambulatory and having normal bowel bladder movement, p.o. tolerant. Pending transfer. 01/22/2020. No acute events overnight. Saw patient while receiving speech therapy, does not appear to be in apparent distress, cooperative with physical examination, still significant aphasia however seem to be improving somewhat. Patient has refused his vitals however he has been taking his medication. Pending transfer to rehab. 01/23/2020. No acute events overnight. Patient has refused his blood draws, taking his medication, does not appear to be in any apparent distress, there is mild improvement of aphasia, ambulatory, having normal bowel and bladder movements. 01/24/2020. No acute events overnight. Saw patient this morning comfortably sitting at the edge of his bed, still has significant aphasia but seems to be improving, patient is cooperative with physical examination, as per primary nurse he is taking his medication however he was noted to be getting into the elevator, patient has been refusing blood draws, patient is scheduled for he modialysis tomorrow, will try to get the blood draw tomorrow. Patient is pending transfer to rehab. 01/25/2020. No acute events overnight. Patient is taking his medication, had his lab work done today, p.o. tolerant, ambulatory, aphasia is improving mildly, pending transfer to rehab. Reason For Visit: END STAGE RENAL DISEASE,DIALYSIS Physical Exam Vital Signs: Temp Pulse Resp BP Pulse Ox 98.0 F 71 16 149/65 H 97 01/25/20 07:40 01/25/20 07:32 01/25/20 07:32 01/25/20 07:32 01/25/20 07:32 Intake & Output 01/24/20 01/25/20 01/26/20 06:59 06:59 06:59 Intake Total 800 2286 Balance 800 2286 Weight 82.6 kg 96.3 kg General appearance: PRESENT: no acute distress, well-developed, well-nourished Head exam: PRESENT: atraumatic, normocephalic Neck exam: ABSENT: carotid bruit, JVD, lymphadenopathy, thyromegaly Respiratory exam: PRESENT: clear to auscultation liseth. ABSENT: rales, rhonchi, wheezes GI/Abdominal exam: PRESENT: normal bowel sounds, soft. ABSENT: distended, guarding, mass, organolmegaly, rebound, tenderness Neurological exam: PRESENT: alert, awake, CN II-XII grossly intact, aphasic. ABSENT: motor sensory deficit Skin exam: PRESENT: other - Bilateral lower extremity stasis dermatitis worse on the left-sided Results Laboratory Results: 01/25/20 05:49 01/25/20 05:49 01/25/20 01/25/20 05:49 05:49 WBC 4.8 RBC 3.15 L Hgb 9.4 L Hct 28.6 L MCV 91 MCH 29.7 MCHC 32.8 RDW 19.3 H Plt Count 284 Sodium 136.3 L Potassium 4.4 Chloride 98 Carbon Dioxide 28 Anion Gap 10 BUN 38 H Creatinine 5.32 H Est GFR ( Amer) 13 L Glucose 111 H Calcium 8.4 Magnesium 2.0 Total Bilirubin 0.4 AST 21 Alkaline Phosphatase 104 Total Protein 5.7 L Albumin 2.8 L Impressions: Head CT 01/09/20 15:12 IMPRESSION: 1. No significant interval change. Involving left MCA infarct as expected, no acute intracranial hemorrhage, mass, or evidence of acute territorial infarct. 2. Moderate chronic small vessel ischemic change and intracranial atherosclerosis is stable. EVIDENCE OF ACUTE STROKE: NO. Forearm X-Ray 01/10/20 00:00 IMPRESSION: Focal soft tissue prominence of the lateral distal forearm without underlying osseous abnormality. Chest X-Ray 01/10/20 08:36 IMPRESSION: Somewhat improved pulmonary examination with persistent car diomegaly and central vascular congestion. Interval placement of a dialysis catheter. Abdomen CT 01/10/20 09:45 IMPRESSION: No acute intraabdominal findings on noncontrast Small bilateral pleural effusions with bilateral airspace, edema versus pneumonia Hand X-Ray 01/10/20 09:58 IMPRESSION: Mild, diffuse soft tissue edema without underlying osseous injury. Venous Doppler Study 01/15/20 00:00 IMPRESSION: NO EVIDENCE DVT OR SVT IN THE LEFT LEG. Assessment and Plan - Diagnosis (1) Acute metabolic encephalopathy Is this a current diagnosis for this admission?: Yes Plan: Patient appears to be at his baseline which unfortunately is severe receptive and expressive aphasia due to recent stroke. Is awake and alert and does not appear to have any focal neurological symptoms. Taking his p.o. medication and tolerating his food. Initially was refusing medications including dialysis since discharge from hospital 12/20/19 Came in with 1 episode of seizures This is likely because of neurologic changes from recent stroke on top of missed dialysis Continue haldol PRN for agitation Continue ativan PRN for seizures Per speech therapist speech is largely dysfluent with few true words produced. Patient was unable to name pictures, was unable to complete automatic speech sequences, and was unable to imitate words or phonemes. Patient does have some preserved social language with greetings, etc. Plan is possible discharge to rehab. (2) ESRD (end stage renal disease) on dialysis Is this a current diagnosis for this admission?: Yes Plan: Dialysis Saturday. Nephrology on board. Possible dialysis tomorrow. Monitor volume status and electrolytes, replace as needed. (3) Hematemesis Qualifiers: Nausea presence: without nausea Qualified Code(s): K92.0 - Hematemesis Is this a current diagnosis for this admission?: Yes Plan: Resolved. Patient had 2 episodes of hematemesis in the ED, no further episode since then Continue protonix 40 mg IV BID He would likely need EGD if it recurs (4) Left acute arterial ischemic stroke, MCA (middle cerebral artery) Is this a current diagnosis for this admission?: Yes Plan: Patient has severe motor and receptive aphasia. Recent Left MCA infarct Nov 2019 Minimal motor deficit but he has suffered significant expressive aphasia as well as behavioral changes Continue lipitor, carvedilol, asa. (5) Pseudomonas urinary tract infection Is this a current diagnosis for this admission?: Yes Plan: Received a complete course of IV meropenem. (6) Hypertension Qualifiers: Hypertension type: essential hypertension Qualified Code(s): I10 - Essential (primary) hypertension Is this a current diagnosis for this admission?: Yes Plan: Euvolemic. Normotensive. Continue current meds. Adjust meds as needed. - Time Time Spent with patient: 15-24 minutes Anticipated Discharge Disposition: Assisted Living with Home Health Services Anticipated Discharge Timeframe: when bed available
--- NOTE | 2020-01-25 15:16 | PDOC PROGRESS REPORT ---
Subjective Date:: 01/25/20 Reason For Visit: Patient being seen while undergoing dialysis. He is undergoing dialysis without any issues. He is wide awake, alert and responding and is aphasic. Unfortunately is unable to talk anything meaningfully because of his severe aphasia. However he is calm and controlled unlike earlier times when I have seen him otherwise. Labs and medications were reviewed. Dialysis orders were reviewed with the treating dialysis nurse. Physical Exam Vital Signs: Temp Pulse Resp BP Pulse Ox 97.4 F 67 17 154/63 H 100 01/25/20 11:10 01/25/20 11:10 01/25/20 11:10 01/25/20 11:10 01/25/20 11:10 Intake & Output 01/24/20 01/25/20 01/26/20 06:59 06:59 06:59 Intake Total 800 2286 480 Balance 800 2286 480 Weight 82.6 kg 96.3 kg General appearance: PRESENT: no acute distress Respiratory exam: PRESENT: clear to auscultation liseth. ABSENT: crackles Cardiovascular exam: PRESENT: +S1, +S2, systolic murmur GI/Abdominal exam: PRESENT: normal bowel sounds, soft. ABSENT: organomegaly, tenderness Extremities exam: ABSENT: pedal edema Neurological exam: PRESENT: alert, awake, aphasic. ABSENT: oriented to person, oriented to place, oriented to time Psychiatric exam: PRESENT: appropriate affect Skin exam: ABSENT: erythema, mottled, rash Results Laboratory Results: 01/25/20 05:49 01/25/20 05:49 01/25/20 01/25/20 05:49 05:49 WBC 4.8 RBC 3.15 L Hgb 9.4 L Hct 28.6 L MCV 91 MCH 29.7 MCHC 32.8 RDW 19.3 H Plt Count 284 Sodium 136.3 L Potassium 4.4 Chloride 98 Carbon Dioxide 28 Anion Gap 10 BUN 38 H Creatinine 5.32 H Est GFR ( Amer) 13 L Glucose 111 H Calcium 8.4 Magnesium 2.0 Total Bilirubin 0.4 AST 21 Alkaline Phosphatase 104 Total Protein 5.7 L Albumin 2.8 L Impressions: Head CT 01/09/20 15:12 IMPRESSION: 1. No significant interval change. Involving left MCA infarct as expected, no acute intracranial hemorrhage, mass, or evidence of acute territorial infarct. 2. Moderate chronic small vessel ischemic change and intracranial atherosclerosis is stable. EVIDENCE OF ACUTE STROKE: NO. Forearm X-Ray 01/10/20 00:00 IMPRESSION: Focal soft tissue prominence of the lateral distal forearm without underlying osseous abnormality. Chest X-Ray 01/10/20 08:36 IMPRESSION: Somewhat improved pulmonary examination with persistent cardiomegaly and central vascular congestion. Interval placement of a dialysis catheter. Abdomen CT 01/10/20 09:45 IMPRESSION: No acute intraabdominal findings on noncontrast Small bilateral pleural effusions with bilateral airspace, edema versus pneumonia Hand X-Ray 01/10/20 09:58 IMPRESSION: Mild, diffuse soft tissue edema without underlying osseous injury. Venous Doppler Study 01/15/20 00:00 IMPRESSION: NO EVIDENCE DVT OR SVT IN THE LEFT LEG. Assessment & Plan - Diagnosis (1) End stage renal disease Plan: Patient currently undergoing dialysis . Currently he is calm and very collected and not at all delirious unlike when I saw him a week earlier Vital signs are stable. Dialysis is being supervised and going very well. Labs and medications reviewed. Dialysis orders reviewed with treating dialysis nurse. Plan to ultrafiltrate 1-1.5 L as tolerated. (2) Hematemesis Qualifiers: Nausea presence: without nausea Qualified Code(s): K92.0 - Hematemesis Is this a current diagnosis for this admission?: Yes Plan: Stable hemoglobin . Being managed by hospitalist. Adjust erythropoietin for anemia. (3) Noncompliance with medication regimen Plan: Secondary to recent events of expressive aphasia and stroke and agitation.Hopefully him being on antipsychotics will help him be better and with compliance as well. (4) Seizure Is this a current diagnosis for this admission?: Yes Plan: As per hospitalist. (5) Delirium due to another medical condition Plan: Currently looks like it has resolved and patient seems to be at baseline. Monitor for long-term compliance and stability. (6) Left acute arterial ischemic stroke, MCA (middle cerebral artery) Is this a current diagnosis for this admission?: Yes Plan: Along with expressive aphasia. Status quo. (7) Anemia in chronic kidney disease (CKD) Is this a current diagnosis for this admission?: Yes Plan: Adjust erythropoietin. Monitor.
[2020-01-25] MEDS: CARVEDILOL 12.5 MG TABLET PO SCH ×2 (15:53→23:26)
[2020-01-25] MEDS: ISOSORBIDE MONONITRATE 60 MG TAB.ER.24H PO SCH ×2 (15:53→23:27)
[2020-01-25] MEDS: VALSARTAN 160 MG TABLET PO SCH ×2 (15:53→23:26)
[2020-01-25] MEDS: ATORVASTATIN CALCIUM 40 MG TABLET PO SCH (23:26)
[2020-01-26] MEDS: HEPARIN SOD (PORCINE) 5,000 UNIT/ML 1 ML VIAL SUBCUT SCH ×3 (05:09→22:32)
[2020-01-26] MEDS: INSULIN LISPRO 100 UNIT/ML 3 ML VIAL SUBCUT SCH ×4 (08:11→22:31)
[2020-01-26] MEDS: CALCIUM ACETATE 667 MG CAPSULE PO SCH ×3 (08:30→18:11)
[2020-01-26] MEDS: CARVEDILOL 12.5 MG TABLET PO SCH ×2 (10:01→22:30)
[2020-01-26] MEDS: ASPIRIN 81 MG TABLET, CHEWABLE PO SCH (10:01)
[2020-01-26] MEDS: OLANZAPINE 5 MG TAB.RAPDIS PO SCH ×2 (10:01→22:31)
[2020-01-26] MEDS: CALCITRIOL 0.25 MCG CAPSULE PO SCH (10:01)
[2020-01-26] MEDS: BUMETANIDE 1 MG TABLET PO SCH ×2 (10:01→18:11)
[2020-01-26] MEDS: VALPROATE SODIUM SYRUP 250 MG/5 ML UDCUP PO SCH ×2 (10:02→22:30)
[2020-01-26] MEDS: VALSARTAN 160 MG TABLET PO SCH ×2 (10:05→22:29)
[2020-01-26] MEDS: ISOSORBIDE MONONITRATE 60 MG TAB.ER.24H PO SCH ×2 (10:05→22:30)
--- NOTE | 2020-01-26 17:49 | PDOC PROGRESS REPORT ---
Subjective Date:: 01/26/20 Subjective:: NAEO Reason For Visit: END STAGE RENAL DISEASE,DIALYSIS Physical Exam Vital Signs: Temp Pulse Resp BP Pulse Ox 97.5 F 66 17 155/80 H 98 01/26/20 11:56 01/26/20 11:56 01/26/20 11:56 01/26/20 11:56 01/26/20 11:56 Intake & Output 01/25/20 01/26/20 01/27/20 06:59 06:59 06:59 Intake Total 2286 480 480 Output Total 560 Balance 2286 -80 480 Weight 96.3 kg 99.4 kg General appearance: PRESENT: no acute distress, cooperative Eye exam: ABSENT: scleral icterus Mouth exam: PRESENT: moist Throat exam: ABSENT: post pharyngeal erythema Neck exam: ABSENT: JVD Respiratory exam: PRESENT: clear to auscultation liseth Cardiovascular exam: PRESENT: RRR GI/Abdominal exam: PRESENT: normal bowel sounds, soft. ABSENT: tenderness Extremities exam: PRESENT: other - L>R swelling Musculoskeletal exam: PRESENT: ambulatory Neurological exam: PRESENT: alert, awake Psychiatric exam: PRESENT: flat affect Skin exam: ABSENT: rash Results Laboratory Results: 01/25/20 05:49 01/25/20 05:49 Impressions: Head CT 01/09/20 15:12 IMPRESSION: 1. No significant interval change. Involving left MCA infarct as expected, no acute intracranial hemorrhage, mass, or evidence of acute territorial infarct. 2. Moderate chronic small vessel ischemic change and intracranial atherosclerosis is stable. EVIDENCE OF ACUTE STROKE: NO. Forearm X-Ray 01/10/20 00:00 IMPRESSION: Focal soft tissue prominence of the lateral distal forearm without underlying osseous abnormality. Chest X-Ray 01/10/20 08:36 IMPRESSION: Somewhat improved pulmonary examination with persistent cardiomegaly and central vascular congestion. Interval placement of a dialysis catheter. Abdomen CT 01/10/20 09:45 IMPRESSION: No acute intraabdominal findings on noncontrast Small bilateral pleural effusions with bilateral airspace, edema versus pneumonia Hand X-Ray 01/10/20 09:58 IMPRESSION: Mild, diffuse soft tissue edema without underlying osseous injury. Venous Doppler Study 01/15/20 00:00 IMPRESSION: NO EVIDENCE DVT OR SVT IN THE LEFT LEG. 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 Is this a current diagnosis for this admission?: Yes (3) ESRD (end stage renal disease) on dialysis Is this a current diagnosis for this admission?: Yes (4) Essential hypertension Is this a current diagnosis for this admission?: Yes (5) Expressive aphasia Is this a current diagnosis for this admission?: Yes (6) Pseudomonas urinary tract infection Is this a current diagnosis for this admission?: Yes (7) Hematemesis Qualifiers: Nausea presence: without nausea Qualified Code(s): K92.0 - Hematemesis Is this a current diagnosis for this admission?: Yes (8) Seizure Is this a current diagnosis for this admission?: Yes (9) Urinary tract infection Qualifiers: Urinary tract infection type: acute cystitis Hematuria presence: without hematuria Qualified Code(s): N30.00 - Acute cystitis without hematuria Is this a current diagnosis for this admission?: Yes (10) Left acute arterial ischemic stroke, MCA (middle cerebral artery) Is this a current diagnosis for this admission?: Yes (11) Physical deconditioning Is this a current diagnosis for this admission?: Yes - Plan Summary Summary: JARED HORVATH JR is a 59 year old man with PMH of ESRD on HD, CHF, HTN, HLD, PAD and recent left MCA stroke complicated by receptive/expressive aphasia and impulse/safety awareness who presented on 01/09/2020 due to seizure-like activity. He was recently discharged from [facility] after a prolonged hospitalization from 12/19-12/31/2019 due to ADHF and acute left MCA stroke. He was discharged home with home health services. Since being discharged home, Mr. Horvath has been very difficult to manage due to the behavioral changes associated with his stroke. He has repeatedly refused dialysis, has refused to take any of his medications, has been defecating in the kitchen sink, has tried to drive a car despite being impaired, etc. He was brought to the ED on 01/07/20 but refused admission/HD and was sent home. He was brought back again on 01/08 after an apparent seizure. When he woke up in the ED, he became very combative and was given ketamine. He was initially kept in the ED as a social hold while social media senior associate was trying to place him in a SNF, per family's request. On 01/10/2020, he developed hematemesis with stable vital signs and H/H. Hospitalist service was subsequently asked to admit for further work up and management. Acute metabolic encephalopathy: he was with family at [facility] when he suddenly dropped to the ground and had seizure-like activity. By the time EMS arrived, he was reportedly post-ictal. Upon becoming more alert, he became extremely combative. and IM ketamine was administered by EMS prior to arrival to the ED. Unclear if he truly had a seizure or if he had seizure-like activity in the s/o vasovagal syncope. He has had no further evidence of seizure-like activity this hospitalization. CT head on arrival did not show any acute changes besides previously known L MCA stroke. - continue depakene 500 mg BID Acute L MCA Ischemic Stroke (11/2019): he has suffered significant expressive aphasia as well as behavioral changes due to this stroke. Family is requesting chemical sedation in order to control his behavioral issues so that he can get the medications, HD and other medical interventions that could potentially prolong his life. Multiple family meetings have been held to discuss options and the risks and benefits of these options. Family is aware that antipsychotic medications increase his risk of , stroke, seizure, cardiac arrhythmias and hyper-somnolence. Psychiatry was consulted for medication recommendations. He has been started on low-dose Zyprexa ODT BID, which has been working well now for the past 2 weeks. - would benefit from the addition of SSRI therapy - continue ASA and high intensity statin therapy Pseudomonas UTI - completed antibiotic therapy ESRD on HD (MWF) via Permacath - Nephrology consulted and following closely Anemia of CKD - H/H stable without signs or symptoms of acute blood loss - Epo with HD Essential Hypertension: controlled on current medications regimen. L>R leg edema: chronic - LLE duplex US negative for DVT this admission Hematemesis: unclear exactly what this episode was related to, or if patient truly ever experienced hematemesis or just regurgitated red-appearing food. He has had no further episodes of GI bleeding and H/H remains stable. DVT ppx: heparin Dispo: SW was initially pursuing SNF placement but he has been denied at [facility] SNFs. Will pursue another family meeting to discuss option of taking patient home with home healthcare services now that his behavior is more manageable. - Time Time Spent with patient: 35 or more minutes Anticipated Discharge Disposition: Home with Home Health Anticipated Discharge Timeframe: within 48 hours
[2020-01-26] MEDS: ATORVASTATIN CALCIUM 40 MG TABLET PO SCH (22:30)
[2020-01-27] MEDS ORDERED: HEPARIN SOD (PORCINE) 1,000 UNIT/ML 10 ML VIAL IV PRN (05:00)
[2020-01-27] MEDS: HEPARIN SOD (PORCINE) 5,000 UNIT/ML 1 ML VIAL SUBCUT SCH ×3 (06:00→22:53)
[2020-01-27 07:04] LABS: HEMATOCRIT 30.3 % (37.9-51.0); HEMOGLOBIN 9.7 g/dL (13.5-17.0); MEAN CORPUSCULAR HEMOGLOBIN 29.2 pg (27.0-33.4); MEAN CORPUSCULAR VOLUME 91 fl (80-97); PLATELET COUNT 276 10^3/uL (150-450); RED BLOOD COUNT 3.31 10^6/uL (4.35-5.55); RED CELL DISTRIBUTION WIDTH 19.6 % (11.5-14.0); WHITE BLOOD COUNT 4.3 10^3/uL (4.0-10.5)
[2020-01-27 07:32] LABS: ANION GAP 7 (5-19); BLOOD UREA NITROGEN 44 mg/dL (7-20); CALCIUM 8.9 mg/dL (8.4-10.2); CARBON DIOXIDE 28 mmol/L (22-30); CHLORIDE 102 mmol/L (98-107); GLUCOSE 111 mg/dL (75-110); POTASSIUM 5.1 mmol/L (3.6-5.0)
[2020-01-27] MEDS ORDERED: EPOETIN ALFA-EPBX 20,000 UNIT in SYRINGE, DISPOSABLE, 1 EACH IV PRN (07:34)
[2020-01-27] MEDS: INSULIN LISPRO 100 UNIT/ML 3 ML VIAL SUBCUT SCH ×4 (09:12→22:50)
[2020-01-27] MEDS: ASPIRIN 81 MG TABLET, CHEWABLE PO SCH (09:59)
[2020-01-27] MEDS: BUMETANIDE 1 MG TABLET PO SCH ×2 (09:59→17:15)
[2020-01-27] MEDS: CALCIUM ACETATE 667 MG CAPSULE PO SCH ×3 (09:59→17:15)
[2020-01-27] MEDS: CARVEDILOL 12.5 MG TABLET PO SCH ×2 (09:59→22:52)
[2020-01-27] MEDS: CALCITRIOL 0.25 MCG CAPSULE PO SCH (10:02)
[2020-01-27] MEDS: OLANZAPINE 5 MG TAB.RAPDIS PO SCH ×2 (10:02→22:52)
[2020-01-27] MEDS: VALSARTAN 160 MG TABLET PO SCH ×2 (10:02→22:51)
[2020-01-27] MEDS: ISOSORBIDE MONONITRATE 60 MG TAB.ER.24H PO SCH ×2 (10:02→22:51)
[2020-01-27] MEDS: VALPROATE SODIUM SYRUP 250 MG/5 ML UDCUP PO SCH ×2 (10:03→22:53)
--- NOTE | 2020-01-27 12:14 | PDOC PROGRESS REPORT ---
Subjective Date:: 01/27/20 Reason For Visit: Patient seen today on dialysis. He is getting rather agitated and a bit com bative. He refuses to stay still for continuation of dialysis. He looks calm when he comes in but soon after he gets on the machine he is getting more restless. This also happened during his last dialysis on Saturday where he got approximately an hour and few minutes of dialysis as he became agitated. Therefore dialysis has been cut short prematurely on for the last few occasions which has resulted in some fluid overload. Patient otherwise looks good. Labs and medications were reviewed. Dialysis orders were reviewed with the treating dialysis nurse. However dialysis had to be terminated prematurely after approximately 30 minutes of dialysis. Physical Exam Vital Signs: Temp Pulse Resp BP Pulse Ox 97.8 F 68 17 149/76 H 100 01/27/20 09:22 01/27/20 09:22 01/27/20 09:22 01/27/20 09:22 01/27/20 09:22 Intake & Output 01/26/20 01/27/20 01/28/20 06:59 06:59 06:59 Intake Total 480 1210 Output Total 560 Balance -80 1210 Weight 99.4 kg 97.8 kg General appearance: PRESENT: no acute distress Respiratory exam: PRESENT: clear to auscultation liseth, decreased breath sounds. ABSENT: crackles Cardiovascular exam: PRESENT: +S1, +S2, systolic murmur GI/Abdominal exam: PRESENT: normal bowel sounds, soft. ABSENT: organomegaly, tenderness Extremities exam: PRESENT: pedal edema Neurological exam: PRESENT: alert, awake. ABSENT: oriented to person, oriented to place Psychiatric exam: PRESENT: agitated Results Laboratory Results: 01/27/20 06:27 01/27/20 06:27 01/27/20 01/27/20 06:27 06:27 WBC 4.3 RBC 3.31 L Hgb 9.7 L Hct 30.3 L MCV 91 MCH 29.2 MCHC 32.0 RDW 19.6 H Plt Count 276 Sodium 136.5 L Potassium 5.1 H Chloride 102 Carbon Dioxide 28 Anion Gap 7 BUN 44 H Creatinine 5.40 H Est GFR ( Amer) 13 L Glucose 111 H Calcium 8.9 Impressions: Head CT 01/09/20 15:12 IMPRESSION: 1. No significant interval change. Involving left MCA infarct as expected, no acute intracranial hemorrhage, mass, or evidence of acute territorial infarct. 2. Moderate chronic small vessel ischemic change and intracranial atherosclerosis is stable. EVIDENCE OF ACUTE STROKE: NO. Forearm X-Ray 01/10/20 00:00 IMPRESSION: Focal soft tissue prominence of the lateral distal forearm without underlying osseous abnormality. Chest X-Ray 01/10/20 08:36 IMPRESSION: Somewhat improved pulmonary examination with persistent cardiomegaly and central vascular congestion. Interval placement of a dialysis catheter. Abdomen CT 01/10/20 09:45 IMPRESSION: No acute intraabdominal findings on noncontrast Small bilateral pleural effusions with bilateral airspace, edema versus pneumonia Hand X-Ray 01/10/20 09:58 IMPRESSION: Mild, diffuse soft tissue edema without underlying osseous injury. Venous Doppler Study 01/15/20 00:00 IMPRESSION: NO EVIDENCE DVT OR SVT IN THE LEFT LEG. Assessment & Plan - Diagnosis (1) End stage renal disease Plan: Patient currently undergoing dialysis which is being supervised. Unfortunately half an hour into dialysis he became restless and rather quite agitated which resulted in termination of dialysis. This is becoming more frequently the theme, when he gets on dialysis which makes it difficult for us to do dialysis safely. Discussed with treating hospitalist Dr. Lopez. Apparently patient has been refused long-term placements in his given mental status. Therefore, the plan as per the hosp[italist who has talked with family is to take him home. I do not mind having him try outpatient dialysis at [facility] Saturday/Saturday/Saturday business management associate schedule and will see how he conducts himself during dialysis. Discussed to have a sitter from his family to hold his hands or distract him while undergoing dialysis which might help. Labs and medications reviewed. Dialysis orders reviewed with treating dialysis nurse. (2) Hematemesis Qualifiers: Nausea presence: without nausea Qualified Code(s): K92.0 - Hematemesis Is this a current diagnosis for this admission?: Yes Plan: Stable hemoglobin . Being managed by hospitalist. Adjust erythropoietin for anemia. (3) Noncompliance with medication regimen Plan: Secondary to recent events of expressive aphasia and stroke and agitation.Unfortunately in spite of antipsychotics the patient who remains calm generally outside of dialysis gets agitated when he gets on the machine which makes it difficult to continue on dialysis safely. Discussed this at length with the hospitalist. Patient is at the point of being discharged to family and we will try outpatient dialysis and see if it can be done safely and if it is not possible then we will have to unfortunately terminate dialysis. (5) Left acute arterial ischemic stroke, MCA (middle cerebral artery) Is this a current diagnosis for this admission?: Yes Plan: Along with expressive aphasia. Status quo. (6) Anemia in chronic kidney disease (CKD) Is this a current diagnosis for this admission?: Yes Plan: Adjust erythropoietin. Monitor.
[2020-01-27] MEDS ORDERED: METOLAZONE 5 MG TABLET PO ONE (12:45)
--- NOTE | 2020-01-27 15:28 | PDOC PROGRESS REPORT ---
Subjective Date:: 01/27/20 Subjective:: NAEO Reason For Visit: END STAGE RENAL DISEASE,DIALYSIS Physical Exam Vital Signs: Temp Pulse Resp BP Pulse Ox 97.7 F 60 16 160/67 H 100 01/27/20 11:02 01/27/20 11:02 01/27/20 11:02 01/27/20 11:02 01/27/20 11:02 Intake & Output 01/26/20 01/27/20 01/28/20 06:59 06:59 06:59 Intake Total 480 1210 240 Output Total 560 Balance -80 1210 240 Weight 99.4 kg 97.8 kg General appearance: PRESENT: no acute distress, cooperative Eye exam: ABSENT: scleral icterus Mouth exam: PRESENT: moist Throat exam: ABSENT: post pharyngeal erythema Neck exam: ABSENT: JVD Respiratory exam: PRESENT: clear to auscultation liseth Cardiovascular exam: PRESENT: RRR GI/Abdominal exam: PRESENT: normal bowel sounds, soft. ABSENT: tenderness Extremities exam: PRESENT: +2 edema - L>R Musculoskeletal exam: PRESENT: ambulatory Neurological exam: PRESENT: alert, awake Psychiatric exam: PRESENT: flat affect Results Laboratory Results: 01/27/20 06:27 01/27/20 06:27 01/27/20 01/27/20 06:27 06:27 WBC 4.3 RBC 3.31 L Hgb 9.7 L Hct 30.3 L MCV 91 MCH 29.2 MCHC 32.0 RDW 19.6 H Plt Count 276 Sodium 136.5 L Potassium 5.1 H Chloride 102 Carbon Dioxide 28 Anion Gap 7 BUN 44 H Creatinine 5.40 H Est GFR ( Amer) 13 L Glucose 111 H Calcium 8.9 Impressions: Head CT 01/09/20 15:12 IMPRESSION: 1. No significant interval change. Involving left MCA infarct as expected, no acute intracranial hemorrhage, mass, or evidence of acute territorial infarct. 2. Moderate chronic small vessel ischemic change and intracranial atherosclerosis is stable. EVIDENCE OF ACUTE STROKE: NO. Forearm X-Ray 01/10/20 00:00 IMPRESSION: Focal soft tissue prominence of the lateral distal forearm without underlying osseous abnormality. Chest X-Ray 01/10/20 08:36 IMPRESSION: Somewhat improved pulmonary examination with persistent cardiomegaly and central vascular congestion. Interval placement of a dialysis catheter. Abdomen CT 01/10/20 09:45 IMPRESSION: No acute intraabdominal findings on noncontrast Small bilateral pleural effusions with bilateral airspace, edema versus pneumonia Hand X-Ray 01/10/20 09:58 IMPRESSION: Mild, diffuse soft tissue edema without underlying osseous injury. Venous Doppler Study 01/15/20 00:00 IMPRESSION: NO EVIDENCE DVT OR SVT IN THE LEFT LEG. 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 Is this a current diagnosis for this admission?: Yes (3) ESRD (end stage renal disease) on dialysis Is this a current diagnosis for this admission?: Yes (4) Essential hypertension Is this a current diagnosis for this admission?: Yes (5) Expressive aphasia Is this a current diagnosis for this admission?: Yes (6) Pseudomonas urinary tract infection Is this a current diagnosis for this admission?: Yes (7) Hematemesis Qualifiers: Nausea presence: without nausea Qualified Code(s): K92.0 - Hematemesis Is this a current diagnosis for this admission?: Yes (8) Seizure Is this a current diagnosis for this admission?: Yes (9) Urinary tract infection Qualifiers: Urinary tract infection type: acute cystitis Hematuria presence: without hematuria Qualified Code(s): N30.00 - Acute cystitis without hematuria Is this a current diagnosis for this admission?: Yes (10) Left acute arterial ischemic stroke, MCA (middle cerebral artery) Is this a current diagnosis for this admission?: Yes (11) Physical deconditioning Is this a current diagnosis for this admission?: Yes - Plan Summary Summary: JARED HORVATH JR is a 59 year old man with PMH of ESRD on HD, CHF, HTN, HLD, PAD and recent left MCA stroke complicated by receptive/expressive aphasia and imp ulse/safety awareness who presented on 01/09/2020 due to seizure-like activity. He was recently discharged from [facility] after a prolonged hospitalization from 12/19-12/31/2019 due to ADHF and acute left MCA stroke. He was discharged home with home health services. Since being discharged home, Mr. Horvath has been very difficult to manage due to the behavioral changes associated with his stroke. He has repeatedly refused dialysis, has refused to take any of his medications, has been defecating in the kitchen sink, has tried to drive a car despite being impaired, etc. He was brought to the ED on 01/07/20 but refused admission/HD and was sent home. He was brought back again on 01/08 after an apparent seizure. When he woke up in the ED, he became very combative and was given ketamine. He was initially kept in the ED as a social hold while social contact worker was trying to place him in a SNF, per family's request. On 01/10/2020, he developed hematemesis with stable vital signs and H/H. Hospitalist service was subsequently asked to admit for further work up and management. Acute metabolic encephalopathy: he was with family at [facility] when he suddenly dropped to the ground and had seizure-like activity. By the time EMS arrived, he was reportedly post-ictal. Upon becoming more alert, he became extremely combative. and IM ketamine was administered by EMS prior to arrival to the ED. Unclear if he truly had a seizure or if he had seizure-like activity in the s/o vasovagal syncope. He has had no further evidence of seizure-like activity this hospitalization. CT head on arrival did not show any acute changes besides previously known L MCA stroke. - continue depakene 500 mg BID Acute L MCA Ischemic Stroke (11/2019): he has suffered significant expressive aphasia as well as behavioral changes due to this stroke. Family is requesting chemical sedation in order to control his behavioral issues so that he can get the medications, HD and other medical interventions that could potentially prolong his life. Multiple family meetings have been held to discuss options and the risks and benefits of these options. Family is aware that antipsychotic medications increase his risk of , stroke, seizure, cardiac arrhythmias and hyper-somnolence. Psychiatry was consulted for medication recommendations. He was started on Zyprexa ODT BID, which has helped improve his mood, behavior and compliance. He would benefit from the addition of SSRI therapy in the future. - continue ASA and high intensity statin therapy Pseudomonas UTI: completed antibiotic therapy with meropenem. ESRD on HD (MWF) via Permacath: Nephrology consulted and following closely. Although his behavior has been well-controlled normally, he still gets agitated while on HD, resulting in several recent HD sessions being cut prematurely short for his own safety. This is becoming more frequent and nephrology is concerned that he will not be able to tolerate outpatient HD at this rate. Therefore, will increase Zyprexa dose from 2.5 to 5 mg PO BID today. He will also have a family member stay with him during HD sessions as outpatient, which will hopefully help. However, if this continues to be the case, and he is unable to tolerate HD due to behavior issues, HD may need to be discontinued permanently. - Given that he has not been tolerating full HD sessions, he is becoming more volume-overloaded. Will therefore increase Bumex dose and add metolazone to regimen today. He will not tolerate MONY stockings or leg elevation during the day. - Upon discharge, start HD Tu[facility]Sa schedule at [facility]. Anemia of CKD - H/H stable without signs or symptoms of acute blood loss - Epo with HD Essential Hypertension: controlled on current medications regimen. L>R leg edema: chronic - LLE duplex US negative for DVT this admission Hematemesis: unclear exactly what this episode was related to, or if patient truly ever experienced hematemesis or just regurgitated red-appearing food. He has had no further episodes of GI bleeding and H/H remains stable. DVT ppx: heparin Dispo: SW was initially pursuing SNF placement but he has been denied at [facility] SNFs. Will pursue another family meeting to discuss option of taking patient home with home healthcare services now that his behavior is more manageable. - Time Time Spent with patient: 35 or more minutes Anticipated Discharge Disposition: Home with Home Health Anticipated Discharge Timeframe: within 24 hours
[2020-01-27] MEDS: ATORVASTATIN CALCIUM 40 MG TABLET PO SCH (22:52)
[2020-01-28] MEDS: HEPARIN SOD (PORCINE) 5,000 UNIT/ML 1 ML VIAL SUBCUT SCH ×2 (05:23→15:32)
[2020-01-28] MEDS: INSULIN LISPRO 100 UNIT/ML 3 ML VIAL SUBCUT SCH ×3 (08:32→17:20)
[2020-01-28] MEDS: VALPROATE SODIUM SYRUP 250 MG/5 ML UDCUP PO SCH (09:17)
[2020-01-28] MEDS: CARVEDILOL 12.5 MG TABLET PO SCH (09:18)
[2020-01-28] MEDS: CALCIUM ACETATE 667 MG CAPSULE PO SCH ×2 (09:18→12:41)
[2020-01-28] MEDS: ASPIRIN 81 MG TABLET, CHEWABLE PO SCH (09:18)
[2020-01-28] MEDS: BUMETANIDE 1 MG TABLET PO SCH (09:18)
[2020-01-28] MEDS: ISOSORBIDE MONONITRATE 60 MG TAB.ER.24H PO SCH (09:19)
[2020-01-28] MEDS: CALCITRIOL 0.25 MCG CAPSULE PO SCH (09:19)
[2020-01-28] MEDS: OLANZAPINE 5 MG TAB.RAPDIS PO SCH (09:19)
[2020-01-28] MEDS: VALSARTAN 160 MG TABLET PO SCH (09:19)
[2020-01-28] MEDS ORDERED: CLONIDINE 0.2 MG/24 HR PATCH.TDWK TD SCH (10:00)
[2020-01-28] MEDS ORDERED: METOLAZONE 5 MG TABLET PO SCH (10:00)
--- NOTE | 2020-01-28 11:06 | PDOC DISCHARGE SUMMARY ---
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 Is this a current diagnosis for this admission?: Yes (3) ESRD (end stage renal disease) on dialysis Is this a current diagnosis for this admission?: Yes (4) Essential hypertension Is this a current diagnosis for this admission?: Yes (5) Expressive aphasia Is this a current diagnosis for this admission?: Yes (6) Pseudomonas urinary tract infection Is this a current diagnosis for this admission?: Yes (7) Hematemesis Is this a current diagnosis for this admission?: Yes (8) Seizure Is this a current diagnosis for this admission?: Yes (9) Urinary tract infection Is this a current diagnosis for this admission?: Yes (10) Left acute arterial ischemic stroke, MCA (middle cerebral artery) Is this a current diagnosis for this admission?: Yes (11) Physical deconditioning Is this a current diagnosis for this admission?: Yes - Assessment Summary: JARED HORVATH JR is a 59 year old man with PMH of ESRD on HD, CHF, HTN, HLD, PAD and recent left MCA stroke complicated by receptive/expressive aphasia and impulse/safety awareness who presented on 01/09/2020 due to seizure-like activity. He was recently discharged from [facility] after a prolonged hospitalization from 12/19-12/31/2019 due to ADHF and acute left MCA stroke. He was discharged home with home health services. Since being discharged home, Mr. Horvath has been very difficult to manage due to the behavioral changes associated with his stroke. He has repeatedly refused dialysis, has refused to take any of his medications, has been defecating in the kitchen sink, has tried to drive a car despite being impaired, etc. He was brought to the ED on 01/07/20 but refused admission/HD and was sent home. He was brought back again on 01/08 after an apparent seizure. When he woke up in the ED, he became very combative and was given ketamine. He was initially kept in the ED as a social hold while social services designee was trying to place him in a SNF, per family's request. On 01/10/2020, he developed hematemesis with stable vital signs and H/H. Hospitalist service was subsequently asked to admit for further work up and management. Acute metabolic encephalopathy: he was with family at [facility] when he suddenly dropped to the ground and had seizure-like activity. By the time EMS arrived, he was reportedly post-ictal. Upon becoming more alert, he became extremely combative. and IM ketamine was administered by EMS prior to arrival to the ED. Unclear if he truly had a seizure or if he had seizure-like activity in the s/o vasovagal syncope. CT head on arrival did not show any acute changes besides previously known L MCA stroke. He was continued on home depakene at 500 mg BID and has not had any further evidence of seizure-like activity this hospitalization. Acute L MCA Ischemic Stroke (11/2019): he has suffered significant expressive aphasia as well as behavioral changes due to his stroke. Family has requested chemical sedation in order to control his behavioral issues so that he can get the medications, HD and other medical interventions that could potentially prolong his life. Multiple family meetings have been held to discuss options and the risks and benefits of these options. Family is aware that antipsychotic medications increase his risk of , stroke, seizure, cardiac arrhythmias and hyper-somnolence. Psychiatry was consulted for medication recommendations. He was started on Zyprexa ODT BID, which has helped improve his mood, behavior and compliance. He would benefit from the addition of SSRI therapy in the future. He was continued on ASA and high intensity statin therapy. He was referred to on discharge for ongoing PT, OT and [employer]. Pseudomonas UTI: completed antibiotic therapy with meropenem x7 days. ESRD on HD via Permacath: Nephrology was consulted. Although his behavior has been well-controlled on Zyprexa, he still gets agitated occasionally 30-60 minutes into a HD session, resulting in several recent HD sessions being cut prematurely short for his own safety. Due to this becoming more frequent and nephrology's concern that he would not be able to tolerate outpatient HD, we increased Zyprexa dose from 2.5 to 5 mg PO BID with good effect. He will also have a family member stay with him during HD sessions as outpatient, which will hopefully help too. However, if his behaviors continue to be disruptive at HD despite antipsychotic medications and he is unable to tolerate HD due to behavior issues, HD may need to be discontinued permanently. Furthermore, given that he has not been tolerating full HD sessions, he is becoming more volume- overloaded and we therefore increased his Bumex dose and added metolazone to his medication regimen, as he still produced urine. He will not tolerate MONY stockings or leg elevation during the day, so his bilateral legs are quite edematous at baseline. Upon discharge, he will re-start outpatient HD on a [facility] schedule at [facility]. Anemia of CKD: H/H stable without signs or symptoms of acute blood loss during hospital stay. He has been receiving Epo injections with HD. Essential Hypertension: controlled on current medications regimen. L>R leg edema: chronic. LLE duplex US negative for DVT this admission. Hematemesis: unclear exactly what this episode was related to, or if patient truly ever experienced hematemesis or just regurgitated red-appearing food. He has had no further episodes of GI bleeding and H/H remained stable throughout admission. Dispo: SW was initially pursuing SNF placement but he has been denied at [facility] SNFs. He is now stable for discharge home with home healthcare services. - Additional Information Resuscitation Status: Full Code Discharge Diet: Cardiac, Diabetic, Other (Comments) Discharge Activity: Activity As Tolerated Referrals: [facility] [Outside] JADIEL SHARPE MD [Primary Care Provider] - 02/04/20 3:30 pm Prescriptions: Bumetanide [Bumex 1 mg Tablet] 3 mg PO BID #180 tablet Clonidine [Catapres-Tts 2 (0.2 mg/24 Hr) Transderm Ptch] 1 each TD Th@10 #5 patch.tdwk Carvedilol [Coreg 12.5 mg Tablet] 12.5 mg PO Q12 #60 tablet Valproate Sodium [Depakene Syrup 250 mg/5 ml Udcup] 500 mg PO Q12 30 Days #60 udc Isosorbide Mononitrate [Imdur 60 mg Tablet.er] 60 mg PO Q12H #60 Calcium Acetate [Phoslo 667 mg Capsule] 667 mg PO MEALS 30 Days #90 capsule Metolazone [Zaroxolyn 5 mg Tablet] 5 mg PO DAILY #30 tablet Olanzapine [Zyprexa Zydis 5 mg Odt Tablet] 5 mg PO Q12 #60 tab.rapdis Home Medications: Aspirin [Ecotrin 81 mg EC Tablet] 81 mg PO DAILY 10/18/19 Valsartan [Diovan 160 mg Tablet] 160 mg PO Q12 #60 tablet 10/23/19 Ergocalciferol (Vitamin D2) [Drisdol 50,000 unit (1.25MG) Capsule] 50,000 unit PO ESQUIVEL 12/20/19 Atorvastatin Calcium [Lipitor 40 mg Tablet] 80 mg PO QHS #60 tablet 12/31/19 Calcitriol [Rocaltrol 0.25 mcg Capsule] 0.25 mcg PO DAILY #30 capsule 12/31/19 Calcium Acetate [Phoslo 667 mg Capsule] 667 mg PO MEALS 30 Days #90 capsule 01/19/20 Valproate Sodium [Depakene Syrup 250 mg/5 ml Udcup] 500 mg PO Q12 30 Days #60 udc 01/19/20 Bumetanide [Bumex 1 mg Tablet] 3 mg PO BID #180 tablet 01/28/20 Carvedilol [Coreg 12.5 mg Tablet] 12.5 mg PO Q12 #60 tablet 01/28/20 Clonidine [Catapres-Tts 2 (0.2 mg/24 Hr) Transderm Ptch] 1 each TD Th@10 #5 pa tch.tdwk 01/28/20 Isosorbide Mononitrate [Imdur 60 mg Tablet.er] 60 mg PO Q12H #60 01/28/20 Metolazone [Zaroxolyn 5 mg Tablet] 5 mg PO DAILY #30 tablet 01/28/20 Olanzapine [Zyprexa Zydis 5 mg Odt Tablet] 5 mg PO Q12 #60 tab.rapdis 01/28/20 History of Present Illiness History of Present Illness: JARED HORVATH JR is a 59 year old male Physical Exam Vital Signs: Temp Pulse Resp BP Pulse Ox 97.7 F 96 18 152/63 H 93 01/28/20 09:55 01/28/20 09:55 01/28/20 09:55 01/28/20 09:55 01/28/20 09:55 Intake & Output 01/27/20 01/28/20 01/29/20 06:59 06:59 06:59 Intake Total 1210 2760 Balance 1210 2760 Weight 97.8 kg 104.6 kg Results Laboratory Results: WBC 4.3 10^3/uL (4.0-10.5) 01/27/20 06:27 RBC 3.31 10^6/uL (4.35-5.55) L 01/27/20 06:27 Hgb 9.7 g/dL (13.5-17.0) L 01/27/20 06:27 Hct 30.3 % (37.9-51.0) L 01/27/20 06:27 MCV 91 fl (80-97) 01/27/20 06:27 MCH 29.2 pg (27.0-33.4) 01/27/20 06:27 MCHC 32.0 g/dL (32.0-36.0) 01/27/20 06:27 RDW 19.6 % (11.5-14.0) H 01/27/20 06:27 Plt Count 276 10^3/uL (150-450) 01/27/20 06:27 Lymph % (Auto) 22.4 % (13-45) 01/20/20 04:55 [place] % (Auto) 8.4 % (3-13) 01/20/20 04:55 Eos % (Auto) 3.7 % (0-6) 01/20/20 04:55 Baso % (Auto) 1.1 % (0-2) 01/20/20 04:55 Absolute Neuts (auto) 4.5 10^3/uL (1.7-8.2) 01/20/20 04:55 Absolute Lymphs (auto) 1.6 10^3/uL (0.5-4.7) 01/20/20 04:55 Absolute Monos (auto) 0.6 10^3/uL (0.1-1.4) 01/20/20 04:55 Absolute Eos (auto) 0.3 10^3/uL (0.0-0.6) 01/20/20 04:55 Absolute Basos (auto) 0.1 10^3/uL (0.0-0.2) 01/20/20 04:55 Seg Neutrophils % 64.4 % (42-78) 01/20/20 04:55 PT 13.4 SEC (11.4-15.4) 01/10/20 08:44 INR 1.00 01/10/20 08:44 APTT 31.0 SEC (23.5-35.8) 01/10/20 08:44 Sodium 136.5 mmol/L (137-145) L 01/27/20 06:27 Potassium 5.1 mmol/L (3.6-5.0) H 01/27/20 06:27 Chloride 102 mmol/L (98-107) 01/27/20 06:27 Carbon Dioxide 28 mmol/L (22-30) 01/27/20 06:27 Anion Gap 7 (5-19) 01/27/20 06:27 BUN 44 mg/dL (7-20) H 01/27/20 06:27 Creatinine 5.40 mg/dL (0.52-1.25) H 01/27/20 06:27 Est GFR ( Amer) 13 (>60) L 01/27/20 06:27 Est GFR (MDRD) Non-Af 11 (>60) L 01/27/20 06:27 Glucose 111 mg/dL (75-110) H 01/27/20 06:27 POC Glucose 106 mg/dL (70-110) 01/28/20 06:05 Lactic Acid 1.5 mmol/L (0.7-2.1) 01/10/20 08:30 Uric Acid 9.6 mg/dL (3.5-8.5) H 01/10/20 08:44 Calcium 8.9 mg/dL (8.4-10.2) 01/27/20 06:27 Phosphorus 5.3 mg/dL (2.5-4.5) H 01/13/20 05:57 Magnesium 2.0 mg/dL (1.6-2.3) 01/25/20 05:49 Total Bilirubin 0.4 mg/dL (0.2-1.3) 01/25/20 05:49 Direct Bilirubin 0.2 mg/dL (0.0-0.4) 01/25/20 05:49 Neonat Total Bilirubin Not Reportable 01/25/20 05:49 Neonat Direct Bilirubin Not Reportable 01/25/20 05:49 Neonat Indirect Bili Not Reportable 01/25/20 05:49 AST 21 U/L (17-59) 01/25/20 05:49 ALT 26 U/L (<50) 01/25/20 05:49 Alkaline Phosphatase 104 U/L (38-126) 01/25/20 05:49 Total Protein 5.7 g/dL (6.3-8.2) L 01/25/20 05:49 Albumin 2.8 g/dL (3.5-5.0) L 01/25/20 05:49 Lipase 26.6 U/L (23-300) 01/10/20 08:44 Urine Color YELLOW 01/09/20 17:40 Urine Appearance CLOUDY 01/09/20 17:40 Urine pH 7.0 (5.0-9.0) 01/09/20 17:40 Ur Specific [place] 1.011 01/09/20 17:40 Urine Protein >=500 mg/dL (NEGATIVE) H 01/09/20 17:40 Urine Glucose (UA) 50 mg/dL (NEGATIVE) H 01/09/20 17:40 Urine Ketones NEGATIVE mg/dL (NEGATIVE) 01/09/20 17:40 Urine Blood SMALL (NEGATIVE) H 01/09/20 17:40 Urine Nitrite NEGATIVE (NEGATIVE) 01/09/20 17:40 Urine Bilirubin NEGATIVE (NEGATIVE) 01/09/20 17:40 Urine Urobilinogen NEGATIVE mg/dL (<2.0) 01/09/20 17:40 Ur Leukocyte Esterase LARGE (NEGATIVE) H 01/09/20 17:40 Urine WBC (Auto) >182 /HPF 01/09/20 17:40 Urine RBC (Auto) 8 /HPF 01/09/20 17:40 Urine Bacteria (Auto) 1+ /HPF 01/09/20 17:40 Urine WBC Clumps MANY /HPF 01/09/20 17:40 Squamous Epi Cells Auto <1 /HPF 01/09/20 17:40 Urine Ascorbic Acid NEGATIVE (NEGATIVE) 01/09/20 17:40 POC Gastric Occult Bld POSITIVE (NEGATIVE) 01/10/20 08:36 POC Stool Occult Blood NEGATIVE (NEGATIVE) 01/10/20 09:24 Urine Opiates Screen NEGATIVE 01/09/20 17:40 Urine Methadone Screen NEGATIVE 01/09/20 17:40 Ur Barbiturates Screen NEGATIVE 01/09/20 17:40 Ur Phencyclidine Scrn NEGATIVE 01/09/20 17:40 Ur Amphetamines Screen NEGATIVE 01/09/20 17:40 U Benzodiazepines Scrn NEGATIVE 01/09/20 17:40 Urine Cocaine Screen NEGATIVE 01/09/20 17:40 U Marijuana (THC) Screen NEGATIVE 01/09/20 17:40 Serum Alcohol < 10 mg/dL (NONE DETECTED) 01/09/20 14:10 COVID-19 Source See comment 01/26/20 21:09 COVID-19 (DARREN) Not Detected (Not Detect) 01/26/20 21:09 Blood Type O POSITIVE 01/10/20 10:40 Antibody Screen NEGATIVE 01/10/20 10:40 Impressions: Head CT 01/09/20 15:12 IMPRESSION: 1. No significant interval change. Involving left MCA infarct as expected, no acute intracranial hemorrhage, mass, or evidence of acute territorial infarct. 2. Moderate chronic small vessel ischemic change and intracranial atherosclerosis is stable. EVIDENCE OF ACUTE STROKE: NO. Forearm X-Ray 01/10/20 00:00 IMPRESSION: Focal soft tissue prominence of the lateral distal forearm without underlying osseous abnormality. Chest X-Ray 01/10/20 08:36 IMPRESSION: Somewhat improved pulmonary examination with persistent cardiomegaly and central vascular congestion. Interval placement of a dialysis catheter. Abdomen CT 01/10/20 09:45 IMPRESSION: No acute intraabdominal findings on noncontrast Small bilateral pleural effusions with bilateral airspace, edema versus pneumonia Hand X-Ray 01/10/20 09:58 IMPRESSION: Mild, diffuse soft tissue edema without underlying osseous injury. Venous Doppler Study 01/15/20 00:00 IMPRESSION: NO EVIDENCE DVT OR SVT IN THE LEFT LEG. Stroke Is this a Stroke Patient?: Yes Stroke Pt being discharged on Anti-thrombolytic therapy?: No Reason(s) for not prescribing Anti-thrombolytic therapy:: Not indicated Stroke Pt being discharged on Anti-coagulation therapy?: No Reason(s) for not prescribing Anti-coagulation therapy:: Not indicated Stroke Pt being discharged on Statins?: Yes Acute Heart Failure Is this a Heart Failure Patient?: No
[2020-01-28 12:05] VITALS: BP 130/70
== END 2020-01-28 16:46 | disposition home health service (06) | DRG 291 ==
LOC: ER 14:02 → EH 01-10 18:03 → 4S 01-10 22:09
PROVIDERS: ADMIT Internal Medicine; ATTEND Hospitalist
PROC: 5A1D70Z Performance of Urinary Filtration, Intermittent, Less than 6 Hours Per Day (ICD-10-PCS; principal; 2020-01-11)
PROC: 5A1D70Z Performance of Urinary Filtration, Intermittent, Less than 6 Hours Per Day (ICD-10-PCS; 2020-01-11)
PROC: 5A1D70Z Performance of Urinary Filtration, Intermittent, Less than 6 Hours Per Day (ICD-10-PCS; 2020-01-13)
PROC: 5A1D70Z Performance of Urinary Filtration, Intermittent, Less than 6 Hours Per Day (ICD-10-PCS; 2020-01-15)
PROC: 5A1D70Z Performance of Urinary Filtration, Intermittent, Less than 6 Hours Per Day (ICD-10-PCS; 2020-01-20)
PROC: 5A1D70Z Performance of Urinary Filtration, Intermittent, Less than 6 Hours Per Day (ICD-10-PCS; 2020-01-22)
PROC: 5A1D70Z Performance of Urinary Filtration, Intermittent, Less than 6 Hours Per Day (ICD-10-PCS; 2020-01-25)
PROC: 5A1D70Z Performance of Urinary Filtration, Intermittent, Less than 6 Hours Per Day (ICD-10-PCS; 2020-01-27)
DX: I13.2 Hypertensive heart and chronic kidney disease with heart failure and with stage 5 chronic kidney disease, or end stage renal disease (principal); N18.6 End stage renal disease; G93.41 Metabolic encephalopathy; K92.0 Hematemesis; N25.81 Secondary hyperparathyroidism of renal origin; I50.42 Chronic combined systolic (congestive) and diastolic (congestive) heart failure; N30.00 Acute cystitis without hematuria; Z20.828 Contact with and (suspected) exposure to other viral communicable diseases; B96.5 Pseudomonas (aeruginosa) (mallei) (pseudomallei) as the cause of diseases classified elsewhere; F91.9 Conduct disorder, unspecified; G40.909 Epilepsy, unspecified, not intractable, without status epilepticus; E78.5 Hyperlipidemia, unspecified; I69.398 Other sequelae of cerebral infarction; D63.1 Anemia in chronic kidney disease; R60.0 Localized edema; E11.51 Type 2 diabetes mellitus with diabetic peripheral angiopathy without gangrene; E11.43 Type 2 diabetes mellitus with diabetic autonomic (poly)neuropathy; E11.22 Type 2 diabetes mellitus with diabetic chronic kidney disease; E87.5 Hyperkalemia; K21.9 Gastro-esophageal reflux disease without esophagitis; Z99.2 Dependence on renal dialysis; I69.920 Aphasia following unspecified cerebrovascular disease; Z78.1 Physical restraint status; Z91.15 Patient's noncompliance with renal dialysis; Z89.422 Acquired absence of other left toe(s); Z91.14 Patient's other noncompliance with medication regimen; Z79.82 Long term (current) use of aspirin; Z87.891 Personal history of nicotine dependence; Z79.899 Other long term (current) drug therapy; Z80.9 Family history of malignant neoplasm, unspecified; Z82.49 Family history of ischemic heart disease and other diseases of the circulatory system
CPT/HCPCS: 36415; 70450; 71045; 74150; 80048; 80053; 80307; 81001; 82270; 82271; 82962; 83605; 83690; 83735; 84100; 84550; 85025; 85027; 85610; 85730; 86850; 86900; 86901; 87040; 87086; 87088; 87186; 87635; 93005; 93010; 93971; 96365; 96367; 96375; 96376; 99285; C9113; C9803; J0696; J1100; J1630; J1644; J1815; J1953; J2060; J2185; J2405; J3490; J8499; Q5105